=== PATIENT | female | born 1935 | race Caucasian/White ===

== ENCOUNTER → 2016-06-28 | Outpatient (CLI) | payer MEDICARE ==
[~2016-06-28] MED LIST: ACET1TAB84 PO; ALBU18002 INH; ASPCH81 PO; ASPI-461 PO; CALC600T9 PO; CLTP PO; CMD5 PO; CRS20 PO; ENOX120I SQ; FLOVENT HFA INH; FLUT110A INH; FLUT1AER5 INH; HYDR-5688 PO; LISI-461 PO; METO-157 PO; METO-649 PO; METO100T44 PO; ONDA4TAB46 PO; ONDA8TAB6 PO; OXYC-57 PO; PANT40TA PO; POLY335019 PO; PRD10 PO; RANI300T2 PO; RGL5 PO; ROSU40TA PO; SULF800T23 PO; TPRSR/100 PO; VNTHFA/IN INH; WARF1TAB6 PO; WARF2TAB PO; WARF2TAB8 PO
[2016-06-28 12:30] LABS: BLOOD UREA NITROGEN 14 mg/dl (7-18); BUN/CREATININE RATIO 14.1 (10-20); CALCIUM 8.7 mg/dl (8.5-10.1); CARBON DIOXIDE 31 mmol/L (21-32); CHLORIDE 108 mmol/L (98-107); CHOLESTEROL 158 mg/dl (0-200); CREATININE 0.96 mg/dl (0.60-1.20); GLUCOSE 95 mg/dl (70-99); POTASSIUM 4.5 mmol/L (3.5-5.1); SODIUM 144 mmol/L (136-145)
[2016-06-28 12:36] LABS: ALKALINE PHOSPHATASE 81 U/L (45-117); ALT/SGPT 33 U/L (12-78); AST/SGOT 24 U/L (15-37); CHOLESTEROL/HDL RATIO 2.2; HDL CHOLESTEROL 73 mg/dl; LDL CHOLESTEROL CALCULATED 65 mg/dl; TRIGLYCERIDES 100 mg/dl (0-150); VERY LOW DENSITY LIPOPROT CALC 20 mg/dl
[2016-06-28 13:12] LABS: HEMATOCRIT 44.2 % (37-47); MEAN CORPUSCULAR HEMOGLOBIN 29.5 pg (25-34); MEAN CORPUSCULAR HGB CONC 33.5 g/dl (32-36); MEAN PLATELET VOLUME 10.1 fL (7.4-10.4); PLATELET COUNT 225 K/uL (130-400); RED BLOOD COUNT 5.02 M/uL (4.2-5.4); WHITE BLOOD COUNT 6.05 K/uL (4.8-10.8)
[2016-06-28 13:13] LABS: BASO ABS # 0.06 K/uL (0-0.2); COMPLETE YES; EOS % 9.9 %; IG% 0.2 %; LYMPH % 27.4 %; LYMPH ABS # 1.66 K/uL (1.2-3.4); MONO % 7.8 %; NEUT % 53.7 %
== END | disposition home or self-care (01) ==
LOC: C.LAB1850 10:10
PROVIDERS: ATTEND Physician Assistant
DX: Z00.00 Encounter for general adult medical examination without abnormal findings (principal); E88.9 Metabolic disorder, unspecified; E11.9 Type 2 diabetes mellitus without complications; I25.10 Atherosclerotic heart disease of native coronary artery without angina pectoris; I65.29 Occlusion and stenosis of unspecified carotid artery

== ENCOUNTER → 2016-07-19 | Outpatient (CLI) | payer MEDICARE ==
[2016-07-19 12:16] LABS: INR 2.2 (0.9-1.1); PROTHROMBIN TIME (PATIENT) 24.2 SECONDS (9.0-12.0)
== END | disposition home or self-care (01) ==
LOC: C.LAB1850 10:28
PROVIDERS: ATTEND Internal Medicine
DX: R91.8 Other nonspecific abnormal finding of lung field (principal)

== ENCOUNTER → 2016-09-09 | Outpatient (CLI) | payer MEDICARE ==
--- NOTE | 2016-09-09 16:13 | MAMMOGRAPHY REPORT ---
BILATERAL DIGITAL SCREENING MAMMOGRAM WITH CAD: 09/09/2016 CLINICAL HISTORY: Routine screening. Patient has no complaints. TECHNIQUE: Current study was also evaluated with a Computer Aided Detection (CAD) system. Bilateral CC and MLO views were obtained. COMPARISON: Comparison is made to exams dated: 09/08/2015 mammogram, 09/05/2014 mammogram, 09/04/2013 m ammogram, 08/31/2012 mammogram, 08/31/2011 mammogram, and 08/27/2010 mammogram - [facility] er. BREAST COMPOSITION: There are scattered areas of fibroglandular density in both breasts. FINDINGS: There is a focal asymmetry in the right upper outer quadrant, for which spot compression t omosynthesis views and possible breast ultrasound are recommended for further evaluation. The remainder of both breasts are stable compared to prior exams, without suspicious masses, calcific ations, or areas of architectural distortion noted. Scattered bilateral benign-appearing calcificati ons are again noted. IMPRESSION: ACR BI-RADS CATEGORY 0: INCOMPLETE EVALUATION: NEED ADDITIONAL IMAGING EVALUATION Focal asymmetry in the right upper outer quadrant, for which additional imaging evaluation is recomme nded. The patient will be called to schedule an appointment. Approximately 10% of breast cancers are not detected with mammography. A negative mammographic report should not delay biopsy if a clinically suggestive mass is present. Janna Loo M.D. ah/:09/09/2016 15:08:45 Tooth Cutter: Vira EATON(Alejo)(Sandy), [facility] letter sent: Addl Imaging 0 BI-RADS Code: ACR BI-RADS Category 0: Incomplete Evaluation: Need Additional Imaging Evaluation
== END | disposition home or self-care (01) ==
LOC: C.MAMM 10:46
PROVIDERS: ATTEND Internal Medicine
DX: Z12.31 Encounter for screening mammogram for malignant neoplasm of breast (principal); N64.89 Other specified disorders of breast

== ENCOUNTER → 2016-09-20 | Outpatient (CLI) | payer MEDICARE ==
--- NOTE | 2016-09-20 13:17 | MAMMOGRAPHY REPORT ---
UNILATERAL RIGHT DIGITAL DIAGNOSTIC MAMMOGRAM TOMOSYNTHESIS AND TARGETED RIGHT ULTRASOUND: 09/20/2016 CLINICAL HISTORY: 80-year-old woman called back from screening mammography for a focal asymmetry in t he right upper outer quadrant. No family history of breast cancer. TECHNIQUE: Spot compression right CC and MLO 2-D digital and tomosynthesis images were obtained. COMPARISON: Comparison is made to exams dated: 09/09/2016 mammogram, 09/08/2015 mammogram, 09/05/2014 m ammogram, 09/04/2013 mammogram, 08/31/2012 mammogram, and 08/31/2011 mammogram - [facility]. BREAST COMPOSITION: The tissue of the right breast is almost entirely fatty. FINDINGS: Spot compression CC and MLO views demonstrate persistence of a focal asymmetry with irregul ar borders and associated architectural distortion in the upper outer middle one third of the right b reast measuring 20 x 9 x 11 mm. This is located 11 cm distal to the nipple. Further evaluation with ultrasound was performed. Targeted ultrasound was performed in the right upper outer quadrant. In the 9:30 axis, 9 cm from the nipple, there is a hypoechoic solid mass with indistinct borders measuring 7.6 x 6.1 x 3.7 mm. This is suspicious for malignancy and definitive characterization with ultrasound guided core biopsy is r ecommended. Additional ultrasound performed in the right axilla demonstrates a few morphologically n ormal lymph nodes within cortices. No suspicious lymphadenopathy. IMPRESSION: ACR BI-RADS CATEGORY 4C: MODERATE SUSPICION FOR MALIGNANCY, TARGETED ULTRASOUND ACR BI-R ADS CATEGORY 4C: MODERATE SUSPICION FOR MALIGNANCY 1. Ultrasound guided core biopsy is recommended for an indeterminate solid 7.6 mm mass with indistin ct borders and associated architectural distortion in the 9:30 axis of the right breast. 2. No suspicious right axillary lymphadenopathy was identified on targeted ultrasound. These results and recommendations were discussed with the patient at the time of exam. She tentative ly scheduled the biopsy prior to leaving our department. Approximately 10% of breast cancers are not detected with mammography. A negative mammographic report should not delay biopsy if a clinically suggestive mass is present. Chrissie Jackson M.D. ay/:09/20/2016 12:39:00 Developer Programmer Analyst: Minnie Marquez, [facility] letter sent: Abnormal 4/5 BI-RADS Code: ACR BI-RADS Category 4C: Moderate Suspicion For Malignancy Ultrasound BI-RADS: ACR BI- RADS Category 4C: Moderate Suspicion For Malignancy
== END | disposition home or self-care (01) ==
LOC: C.MAMM 09:48
PROVIDERS: ATTEND Internal Medicine
DX: N64.89 Other specified disorders of breast (principal); N63 Unspecified lump in breast

== ENCOUNTER → 2016-09-29 | Outpatient (CLI) | payer MEDICARE ==
[~2016-09-29] MED LIST changes: -ACET1TAB84 PO; -FLOVENT HFA INH; -FLUT1AER5 INH; -METO-157 PO; -METO-649 PO; -METO100T44 PO; +METO1TAB71 PO; -ONDA4TAB46 PO; -ONDA8TAB6 PO; -OXYC-57 PO; -SULF800T23 PO; -WARF2TAB PO
--- NOTE | 2016-09-29 15:18 | Discharge Instructions ---
Discharge Instructions Procedure Procedure Date: Sep 29, 2016. Reason for visit: Right Mass On Aspirin And Coumadin. Discharge Discharge Date: Sep 29, 2016. Discharge Diagnosis: post right breast ultrasound guided core biopsy Instructions Activity Recommendations: Additional Limitations (see below) Return to School/Work: no limitations Recommended Home Diet: No Limitations Provider Instructions: ACTIVITY RECOMMENDATIONS: * No lifting, pushing, pulling or exercising the affected side for three days. RETURN TO SCHOOL/WORK: * You may return to work/school after the procedure, but do not perform any strenuous activities for 24 to 48 hours. MEDICATIONS: * Tylenol (two 325 mg) every four to six hours if needed for mild pain (if not allergic to Tylenol). DIET: * Resume previous diet. SPECIAL CARE INSTRUCTIONS: * Keep biopsy site dry for 24 hours. May shower after 24 hours, but do not soak (bathe) incision. * May remove Tegaderm (plastic patch) tomorrow AFTER showering. * Leave the steri-strips on for one week. Allow the steri-strips to fall off by themselves. If not off after one week, you may remove them. You may place a Bandaid crosswise over the strips, if desired. * Apply ice 10 minutes on and 10 minutes off as needed. * Wear a bra at bedtime to sleep more comfortably for 2-3 days. * Your referring physician should have the results after approximately 5 to 7 business days. * Call for unusual bleeding, fever, drainage, etc or if you have any questions call [phone] during normal business hours or after hours call Dr Jackson, . FOLLOW UP VISIT: Follow-up with Referring Physician as scheduled. Allergies Coded Allergies: Nitroglycerin (Verified Allergy, Intermediate, BP Decreases, HR Increases , 11/27/11) Dee Maya Recommendations: Call your doctor if: * Temperature above 101 degrees * Pain not relieved by pain medicine ordered * There is increased drainage or redness from any incision * You have any unanswered questions or concerns. Your Doctors Instructions noted above were prepared by provider Chrissie Jackson. Patient Signature Section: Patient Instructions Signature Page Phill José Miguel Patient (or Guardian) Signature/Date: I have read and understand the instructions given to me by my caregivers. Caregiver/RN/Doctor Signature/Date: The above-named patient and/or guardian has received patient instructions on this date. + Original Patient Signature Page (only) stays with chart. Please make copy for patient.
--- NOTE | 2016-09-29 15:53 | MAMMOGRAPHY REPORT ---
UNILATERAL RIGHT DIGITAL DIAGNOSTIC MAMMOGRAM: 09/29/2016 CLINICAL HISTORY: Status post ultrasound guided core biopsy of an ill-defined hypoechoic solid mass i n the 9:30 right breast. Please refer to the report from right breast ultrasound guided core biopsy performed at the same time for full detail. IMPRESSION: POST PROCEDURE IMAGING FOR MARKER PLACEMENT Please refer to the report from right breast ultrasound guided core biopsy performed at the same time for full detail. Approximately 10% of breast cancers are not detected with mammography. A negative mammographic report should not delay biopsy if a clinically suggestive mass is present. Chrissie Jackson M.D. ay/:09/29/2016 14:37:29 Painting Supervisor: Mariella HARMON)(M), [facility] BI-RADS Code: Post Procedure Imaging For Marker Placement
--- NOTE | 2016-09-30 13:50 | MAMMOGRAPHY REPORT ---
ULTRASOUND GUIDED BIOPSY RIGHT BREAST: 09/29/2016 CLINICAL HISTORY: 80-year-old woman presents for biopsy of an ill-defined spiculated hypoechoic solid mass in the 9:30 right breast. COMPARISON: Comparison is made to exams dated: 09/20/2016 ultrasound, 09/20/2016 mammogram, 09/09/2016 mammogram, 09/08/2015 mammogram, 09/05/2014 mammogram, and 09/04/2013 mammogram - [facility]. PATIENT CONSENT: The procedure, risks and benefits were discussed with the patient and informed writt en consent was obtained. Specific risks to this procedure include: bleeding, infection, puncture of a djacent structure, pain, medication reaction, nontarget biopsy, sampling error and metal allergy. PROCEDURE DESCRIPTION: A time out was performed and the right breast was agreed as the site of biopsy . The skin was prepped and draped in the usual sterile fashion. The ill-defined hypoechoic solid mass in the 9:30 right breast was chosen as the target for biopsy. Subcutaneous and intraparenchymal 1% b uffered lidocaine, with and without epinephrine, was administered as local anesthesia. A skin incisio n was made. Through the incision, 5 samples were taken with a 14 gauge Achieve biopsy device. A meta llic marker was placed at the biopsy site. Hemostasis was achieved after manual compression. The jt ent tolerated the procedure well and there was no immediate complication. The samples were sent to t pathology department in an appropriately labeled container. Post procedure right CC and ML views were obtained. There is a new ribbon-shaped metallic biopsy mar ker within the mammographic mass in question. No significant post biopsy hematoma. IMPRESSION: ULTRASOUND GUIDED BIOPSY Status post ultrasound guided core biopsy of a suspicious mass in the 9:30 right breast, with biopsy marker placed at the site. The patient will receive notification of the biopsy results from her referring physician. Chrissie Jackson M.D. ay/:09/29/2016 15:49:05 Transformer Shop Supervisor: Mariella HARMON)(M), [facility]
== END | disposition home or self-care (01) ==
LOC: C.MAMM 14:04
PROVIDERS: ATTEND Internal Medicine
DX: C50.911 Malignant neoplasm of unspecified site of right female breast (principal)

== ENCOUNTER 2016-11-04 07:42 | Day surgery (SDC) | payer MEDICARE ==
[2016-10-19 10:07] VITALS: BMI 36.0
--- NOTE | 2016-10-19 10:50 | PAT Medication Instructions ---
Service Date Oct 19, 2016. Current Home Medication List Albuterol Sulfate (Proair Respiclick), 2 SPRAY INH Q4 PRN for SOB/Wheezing Aspirin (Aspirin Tab-Chewable *), 81 MG PO QAM Calcium/Vitamin D (Caltrate 600 Plus *), 1 TAB PO BID Fluticasone Propionate Hfa (Flovent Hfa 110MCG Inhaler), 1 PUFF INH BID Lisinopril (Zestril), 10 MG PO QAM Metoclopramide (Reglan *), 5 MG PO DAILY Metoprolol Succinate (Toprolxl (Toprol-Xl), 200 MG PO QAM Pantoprazole (Protonix), 40 MG PO QAM Ranitidine (Zantac), 150 MG PO HS Rosuvastatin Calcium (Crestor *), 40 MG PO HS Warfarin Sod (Jantoven), 2 MG PO MWF Warfarin Sod (Jantoven), 1 MG PO UD Medication Instructions For Your Scheduled Surgery - Per prescribing physician, pt to hold x 5 days prior to surgery and 'bridge' with Lovenox: Warfarin Sod (Jantoven), 2 MG PO MWF Warfarin Sod (Jantoven), 1 MG PO UD Aspirin (Aspirin Tab-Chewable *), 81 MG PO QAM - Hold the following medications the morning of surgery: Calcium/Vitamin D (Caltrate 600 Plus *), 1 TAB PO BID Lisinopril - Take the following medications the morning of surgery with a sip of water OTHERWISE NOTHING TO EAT OR DRINK AFTER MIDNIGHT: Metoclopramide (Reglan *), 5 MG PO DAILY Metoprolol Succinate (Toprolxl (Toprol-Xl), 200 MG PO QAM Pantoprazole (Protonix), 40 MG PO QAM Fluticasone Propionate Hfa (Flovent Hfa 110MCG Inhaler), 1 PUFF INH BID Albuterol Sulfate (Proair Respiclick), 2 SPRAY INH Q4 PRN for SOB/Wheezing (use if needed; BRING TO HOSPITAL) - Take the following medications as scheduled the night before surgery: Ranitidine (Zantac), 150 MG PO HS Rosuvastatin Calcium (Crestor *), 40 MG PO HS Fluticasone Propionate Hfa (Flovent Hfa 110MCG Inhaler), 1 PUFF INH BID Calcium/Vitamin D (Caltrate 600 Plus *), 1 TAB PO BID Albuterol Sulfate (Proair Respiclick), 2 SPRAY INH Q4 PRN for SOB/Wheezing If you have any questions please call us at [phone] or [phone] or [phone]
--- NOTE | 2016-10-19 11:37 | DIAGNOSTIC IMAGING REPORT ---
CHEST PREADMISSION(PA/LAT) CLINICAL HISTORY: Preoperative evaluation. COMPARISON STUDY: Chest CT February 04, 2015. FINDINGS: There are median sternotomy wires and mediastinal surgical clips. Mild left basilar opacity suggests atelectasis and epicardial fat pad. This is unchanged. Cardiomediastinal silhouette is stable. There is no evidence of pulmonary edema. There are cholecystectomy clips. The appearance of the chest is unchanged. IMPRESSION: No acute cardiopulmonary findings. No change in appearance of the chest. Electronically signed by: Guzman Plata M.D. 10/19/2016 11:36 AM Dictated Date/Time: 10/19/2016 11:35 AM
[2016-10-19 12:22] LABS: BASO % 1.1 %; BASO ABS # 0.08 K/uL (0-0.2); COMPLETE YES; EOS % 14.1 %; HEMATOCRIT 45.9 % (37-47); IG% 0.1 %; LYMPH % 22.2 %; LYMPH ABS # 1.56 K/uL (1.2-3.4); MEAN CORPUSCULAR HGB CONC 32.2 g/dl (32-36); MEAN PLATELET VOLUME 10.3 fL (7.4-10.4); MONO % 8.3 %; NEUT % 54.2 %; PLATELET COUNT 216 K/uL (130-400); WHITE BLOOD COUNT 7.03 K/uL (4.8-10.8)
[2016-10-19 12:29] LABS: INR 3.2 (0.9-1.1); PARTIAL THROMBOPLASTIN RATIO 1.5; PROTHROMBIN TIME (PATIENT) 35.6 SECONDS (9.0-12.0)
[2016-10-19 12:36] LABS: BUN/CREATININE RATIO 14.7 (10-20); CALCIUM 8.7 mg/dl (8.5-10.1); CREATININE 1.1 mg/dl (0.60-1.20)
[~2016-11-04] VITALS: Ht 152.4 cm; Wt 84.1 kg
[~2016-11-04 07:42] MED LIST changes: -ASPI-461 PO; -CALC600T9 PO; +CEFAZOLIN 2000 MG/60 ML D5W IV SCH; -CMD5 PO; -ENOX120I SQ; -HYDR-5688 PO; +LACTATED RINGER'S 1000ML 1,000 ML IV SCH; -POLY335019 PO; -PRD10 PO; -ROSU40TA PO; -TPRSR/100 PO; -VNTHFA/IN INH
[2016-11-04] MEDS ORDERED: BUPIVACAINE/EPINEPHRINE 0.5% MPF 1:200,000 10 ML VIAL ONE (08:54)
[2016-11-04] MEDS ORDERED: MEPERIDINE HCL 25 MG/ML CARP IV PRN (09:15)
[2016-11-04] MEDS ORDERED: ONDANSETRON INJ 2 MG/ML 2 ML VIAL IV PRN ×2 (09:15→14:15)
[2016-11-04] MEDS ORDERED: HYDROmorphone INJ 1 MG/ML SYR IV PRN (09:15)
[2016-11-04] MEDS ORDERED: LABETALOL HCL IV 5 MG/ML 20ML IV PRN (09:15)
[2016-11-04] MEDS ORDERED: EpHEDrine SULFATE INJ 50 MG/ML AMP IV PRN (09:15)
[2016-11-04] MEDS ORDERED: ATROPINE SULFATE 0.1 MG/ML 5ML SYR IV PRN (09:15)
[2016-11-04] MEDS ORDERED: FENTANYL CITRATE INJ 50 MCG/1 ML 2 ML VIAL IV PRN (09:15)
[2016-11-04] MEDS ORDERED: FENTANYL CITRATE INJ 50 MCG/1 ML 2 ML VIAL ONE ×2 (09:22→12:14)
[2016-11-04] MEDS ORDERED: MIDAZOLAM HCL 1 MG/ML 2ML VIAL ONE (09:22)
--- NOTE | 2016-11-04 09:25 | History & Physical Bridge Note ---
H&P Re-Evaluation Bridge Note: I have examined the patient, reviewed the History & Physical and in the interval since the performance of the History & Physical I have noted the following changes of clinical significance: No changes noted
[2016-11-04 09:31] VITALS: BP 131/73; PULSE 70; TEMP 36.7; O2SAT 98; Ht 152.4 cm; Wt 84.1 kg
--- NOTE | 2016-11-04 09:46 | DIAGNOSTIC IMAGING REPORT ---
RIGHT BREAST LYMPHOSCINTIGRAPHY CLINICAL HISTORY: Right breast cancer. COMPARISON STUDY: Diagnostic right mammogram September 29, 2016. PROCEDURE: Right breast lymphoscintigraphy was performed. The procedure, risks and benefits were discussed with the patient and informed consent was obtained. The procedure was performed by Dr. Plata following a timeout. Skin of the right breast was prepped. A total of 0.54 mCi of Lymphoseek was injected in a right periareolar distribution in 5 intradermal aliquots. The patient tolerated the procedure well and no immediate complications were evident. No imaging was requested at this time. IMPRESSION: Right breast lymphoscintigraphy, as described above. Electronically signed by: Guzman Plata M.D. 11/04/2016 9:44 AM Dictated Date/Time: 11/04/2016 9:41 AM
[2016-11-04 10:09] LABS: PARTIAL THROMBOPLASTIN RATIO 0.9; PROTHROMBIN TIME (PATIENT) 10.7 SECONDS (9.0-12.0)
[2016-11-04] MEDS ORDERED: ISOSULFAN BLUE 10 MG/ML VIAL 5 ML ONE (11:40)
[2016-11-04] MEDS ORDERED: HYDR-5688 PO (11:45)
--- NOTE | 2016-11-04 11:48 | Discharge Instructions ---
Discharge Instructions Date of Service Nov 04, 2016. Visit Reason for Visit: Right Breast Cancer W/Hosp Loc & Nm Inj To Follow Discharge Discharge Diagnosis / Problem: right sentinel lymph node biopsy, partial mastectomy Discharge Goals Goal(s): Decrease discomfort Activity Recommendations Activity Limitations: as noted below Shower/Bathe: no limitations Driving or Machine Use: resume 3 days after discharge (if not taking [place]) Anesthesia . Post Anesthesia Instructions: If you have had General Anesthesia or IV Sedation: * Do not drive today. * Resume driving when surgeon permits. * Do not make important decisions or sign legal documents today. * Call surgeon for: 1. Temperature elevations greater than 101 degrees F. 2. Uncontrollable pain. 3. Excessive bleeding. 4. Persistent nausea and vomiting. 5. Medication intolerance (nausea, vomiting or rash). * For nausea and vomiting use only clear liquids such as: tea, soda, bouillon until nausea subsides, then gradually increase diet as tolerated. * If you have any concerns or questions, call your surgeon's office. If physician is unavailable and it is an emergency, call 911 or go to the nearest emergency room. . Instructions / Follow-Up Instructions / Follow-Up Dr. Clemons as planned in 1-2 weeks, call the office for any questions [phone] Diet Recommendations Recommended Home Diet: no limitations Pending Studies Studies pending at discharge: yes List of pending studies: Pathology Medical Emergencies . Who to Call and When: Medical Emergencies: If at any time you feel your situation is an emergency, please call 911 immediately. . Non-Emergent Contact Non-Emergency issues call your: Surgeon Call Non-Emergent contact if: you have a fever, temperature is above 101.5, your pain is not controlled, wound has increased redness, you have any medication questions . . "Provider Documentation" section prepared by Wayne Tom. .
[2016-11-04] MEDS ORDERED: PROPOFOL IV EMULSION 10 MG/ML 20 ML VIAL IV ONE (11:50)
[2016-11-04] MEDS ORDERED: LIDOCAINE HCL 2% 2 ML VIAL (20MG/ML) ONE (11:50)
[2016-11-04] MEDS ORDERED: ONDANSETRON INJ 2 MG/ML 2 ML VIAL ONE (11:50)
[2016-11-04] MEDS ORDERED: DEXAMETHASONE SOD INJ 4 MG/ML VIAL ONE (11:50)
[2016-11-04] MEDS ORDERED: PHENYLEPHRINE HCL INJ 10 MG/ML VIAL ONE (11:54)
[2016-11-04] MEDS ORDERED: EpHEDrine SULFATE INJ 50 MG/ML AMP ONE (12:25)
[2016-11-04] MEDS ORDERED: ARISTA ABSORBABLE HEMOSTAT 3GM TOP ONE (13:50)
--- NOTE | 2016-11-04 14:02 | MAMMOGRAPHY REPORT ---
NEEDLE LOCALIZATION RIGHT BREAST: 11/04/2016 CLINICAL HISTORY: Right breast cancer. PROCEDURE DESCRIPTION: With ultrasound guidance, aseptic technique, and 1% lidocaine as the local ane sthetic, the mass and associated biopsy marker clip in the right 9 to 9:30 breast were localized with a 5 cm Vyas 2 needle. The path of approach was caudocranial. The needle was removed. Right CC a nd ML mammograms were obtained to confirm wire position. The biopsy marker clip and mass are located along the distal portion of the wire, centered around the hook. The patient tolerated the procedure without complication. COMPARISON: Comparison is made to exams dated: 09/29/2016 ultrasound biopsy, 09/29/2016 mammogram, 2016 ultrasound, 09/20/2016 mammogram, 09/09/2016 mammogram, and 09/08/2015 mammogram - [facility]. IMPRESSION: NEEDLE LOCALIZATION Needle localization of the mass and associated biopsy marker clip in the right 9:00 to 9:30 breast. Janna Loo M.D. ah/:11/04/2016 08:17:51 Attending Technologist: Mariella Saul RT(R)(M), [facility] Extruder Operator Helper: Janna Loo MD, [facility]
--- NOTE | 2016-11-04 14:02 | MAMMOGRAPHY REPORT ---
SPECIMEN RIGHT BREAST: 11/04/2016 CLINICAL HISTORY: Status post right breast surgical excision. COMPARISON: Comparison is made to exams dated: 11/04/2016 localization, 09/29/2016 mammogram, 09/20/2016 ultrasound, 09/20/2016 mammogram, and 09/09/2016 mammogram - [facility]. Findings: A radiograph was performed of the right breast surgical specimen. The localized mass and a ssociated biopsy marker clip are present centrally within the specimen. The intact needle localizati on wire is also present. Results were relayed to Dr. Clemons over the telephone. IMPRESSION: SPECIMEN The imaged specimen contains the preoperatively localized mass and biopsy marker clip. Janna Loo M.D. ah/:11/04/2016 13:34:58 Activity Specialist: Mariella EATON(Alejo)(M), [facility]
--- NOTE | 2016-11-04 14:04 | MAMMOGRAPHY REPORT ---
UNILATERAL RIGHT DIGITAL DIAGNOSTIC MAMMOGRAM: 11/04/2016 CLINICAL HISTORY: Status post ultrasound guided needle localization of a right 9 to 9:30 breast mass. TECHNIQUE: Right CC and ML views were obtained. COMPARISON: Comparison is made to exams dated: 09/29/2016 ultrasound biopsy, 09/29/2016 mammogram, 2016 mammogram, 09/09/2016 mammogram, 09/08/2015 mammogram, and 09/05/2014 mammogram - [facility]. BREAST COMPOSITION: The tissue of the right breast is almost entirely fatty. FINDINGS: Right CC and ML views were obtained after ultrasound-guided needle localization of the rig ht 9- 9:30 breast mass and associated biopsy marker clip. The mass and associated biopsy marker clip are located along the distal aspect of the needle localization wire, centered at the hook. IMPRESSION: Needle localization of mass and associated biopsy marker clip in the right 9 to 9:30 breast. Approximately 10% of breast cancers are not detected with mammography. A negative mammographic report should not delay biopsy if a clinically suggestive mass is present. Janna Loo M.D. ah/:11/04/2016 08:19:37 Feeder Operator: Mariella EATON(R)(M), [facility] BI-RADS Code: n/a
[2016-11-04] MEDS ORDERED: LACTATED RINGER'S 1000ML 1,000 ML IV SCH (14:05)
--- NOTE | 2016-11-04 14:06 | [facility] Operative Report ---
Operative Report Operative Date Nov 04, 2016. Pre-Operative Diagnosis Lobular breast cancer, right Post-Operative Diagnosis Same as preop; + axillary lymph nodes Procedure(s) Performed Right Breast Partial Mastectomy with Needle Localization, Right [place] Lymph Node Biopsy, right axillary dissection Surgeon Dr. Clemons Wrapper Rewinder Surgeon(s) Sampson Huntley PA-C/SIMA coles Estimated Blood Loss 40 cc Findings + axillary sentinel lymph nodes Specimens B: right axillary dissection - fresh specimen Anesthesia LMA Complication(s) None Disposition Recovery Room / PACU I attest to the content of the Intraoperative Record and any orders documented therein. Any exceptions are noted below.
[2016-11-04] MEDS ORDERED: MoRPHine SULFATE 4 MG/ML 1 ML CARP\\VIAL IV PRN (14:15)
[2016-11-04] MEDS ORDERED: HYDROCODONE/ACETAMOPHEN 5/325MG TAB PO PRN (14:15)
--- NOTE | 2016-11-04 14:44 | OPERATIVE REPORT ---
DATE OF OPERATION: 11/04/2016 PREOPERATIVE DIAGNOSIS: Right breast cancer. POSTOPERATIVE DIAGNOSIS: Same with positive sentinel lymph nodes. PROCEDURES: 1. Right breast partial mastectomy. 2. Right sentinel lymph node biopsy. 3. Subsequent completion axillary dissection. SURGEON: Dr. Emanuel Clemons. BAGMAN/WOMAN: Gabrielle Huntley PA-C and Wayne Tom PA-C ESTIMATED BLOOD LOSS: Approximately 40 mL. COMPLICATIONS: No immediate. ANESTHESIA: General with laryngeal mask airway. DESCRIPTION OF PROCEDURE: Prior to coming to the operating room, the patient had been taken to the breast center, where an image-guided needle placement was performed without incident. She subsequently then went to radiology, where she was injected with technetium-99. She was then brought to the operating room and placed in the supine position. After successful placement of laryngeal mask airway, the right breast and axilla were sterilely prepped and draped in the usual fashion. Initially, I was having a lot of trouble with the Neoprobe, finding the axillary lymph node. I therefore injected about 3-4 mL of isosulfan blue into the upper outer area of the nipple areolar complex near one of her technetium injection sites. We massaged this into the breast tissue and waited for about 5-10 minutes before initiating the procedure. As time went on, we were getting some signal with the Neoprobe. We made a small axillary incision with a 15 blade scalpel and carried this down through the soft tissue using electrocautery. We did find the blue dye in the lymphatics and we were able to follow these to a blue lymph node. There were actually 2 lymph nodes side by side, both had took up the blue dye. We were able to use cautery and tied it off the pedicles with 3-0 Vicryl. When we removed these from the axilla, we were able to get some positive counts on the Neoprobe. These were sent as sentinel lymph nodes #1 and #2. When we reinserted the Neoprobe into the incision, there was no further activity noted. Our attention then turned to the partial mastectomy. I should note that later in the case, pathology would call into the room indicating that both sentinel lymph nodes were essentially completely replaced with lobular carcinoma. We made a new incision in the upper outer quadrant of the breast. We used electrocautery to make skin flaps in 360 degrees. I then cut the guidewire and delivered it through the skin into the incision. We continued to use traction, counter traction and electrocautery to carry down through normal breast tissue in 360 degrees, headed towards the hook in the guidewire. We did take this essentially whole way down to fascia and removed in 1 piece the upper outer quadrant of the right breast. I did rosalio it with 2 short sutures to indicate the superior aspect and one long suture to indicate the lateral aspect. We did x-ray it in the room and we did in fact have the entire guidewire with hook as well as a marker clip. Any small bleeding points were controlled using electrocautery. I used Augusto powder and closed the wound with 0 Vicryl for deep layers, 2-0 Vicryl for mid layers and 4-0 Monocryl for the skin. As previously stated, pathology did call into the room indicating positive lymph nodes. We therefore extended the axillary incision superiorly and inferiorly and performed a completion axillary node dissection. I continued down on to the chest wall and continued posteriorly to the latissimus dorsi muscle. I continued superiorly to the axillary vein using primarily blunt dissection. I did tie off a small vessel with 3-0 Vicryl, continued to use small amounts of electrocautery and blunt dissection to continue to deliver all of the deep axillary fat pad with subsequent lymph nodes. Once we had this entire fat pad out in 1 piece, we sent it for permanent sectioning. The patient was not under paralysis and I did not run into any nerve tissue during the dissection. We then thoroughly irrigated the axillary wound. I placed Augusto into this wound also to help prevent seroma and hematoma formation and closed it in multiple layers again using 0 Vicryl for deep layers, 2-0 Vicryl for mid layers and 4-0 Monocryl for skin. We did use Marcaine around the incisions for postoperative analgesia. Benzoin and Steri-Strips were placed as well as some gauze and a Surgi-Bra. The patient was then awakened, extubated, and transferred to recovery room in stable condition. I attest to the content of the Intraoperative Record and any orders documented therein. Any exception s are noted below.
--- NOTE | 2016-11-04 14:52 | Anesthesiology Progress Note ---
Anesthesia Post Op Note Date & Time Nov 04, 2016 at 14:52 Vital Signs Pain Intensity: 0 Vital Signs Past 12 Hours Date Time Temp Pulse Resp B/P (MAP) Pulse Ox O2 Delivery O2 Flow Rate FiO2 11/04/16 14:46 36.5 75 20 124/69 95 Room Air 11/04/16 14:43 69 15 11/04/16 14:43 71 15 98 11/04/16 14:42 139/68 11/04/16 14:38 72 22 11/04/16 14:38 73 22 97 11/04/16 14:36 128/63 11/04/16 14:33 73 15 97 11/04/16 14:33 71 15 11/04/16 14:31 142/72 11/04/16 14:28 71 14 11/04/16 14:28 72 14 98 11/04/16 14:27 74 15 11/04/16 14:27 74 15 11/04/16 14:27 74 15 96 11/04/16 14:27 74 15 96 11/04/16 14:26 125/74 11/04/16 14:26 125/74 11/04/16 14:22 75 22 147/101 98 11/04/16 14:22 70 22 11/04/16 14:22 70 22 11/04/16 14:22 75 22 147/101 98 11/04/16 14:17 73 16 11/04/16 14:17 73 16 11/04/16 14:17 73 16 125/68 99 11/04/16 14:17 73 16 125/68 99 11/04/16 14:12 72 22 11/04/16 14:12 72 22 11/04/16 14:12 74 22 98 11/04/16 14:12 74 22 98 11/04/16 14:11 128/62 11/04/16 14:11 128/62 11/04/16 14:07 70 16 11/04/16 14:07 36.1 71 18 129/64 98 Mask 10 11/04/16 14:07 70 16 11/04/16 14:07 70 16 129/64 98 11/04/16 14:07 70 16 129/64 98 11/04/16 09:31 36.7 70 18 131/73 (92) 98 Room Air Notes Mental Status: alert / awake / arousable, participated in evaluation Pt Amnestic to Procedure: Yes Nausea / Vomiting: adequately controlled Pain: adequately controlled Airway Patency, RR, SpO2: stable & adequate BP & HR: stable & adequate Hydration State: stable & adequate Anesthetic Complications: no major complications apparent
[2016-11-04 15:00] VITALS: BP 144/78; PULSE 77; TEMP 36.5; O2SAT 95
[2016-11-04 15:30] VITALS: BP 130/60; PULSE 77; TEMP 36.5; O2SAT 95
[2016-12-27] MEDS ORDERED: ASPI-461 PO (08:33)
[2016-12-27] MEDS ORDERED: ROSU40TA PO (08:33)
[2016-12-27] MEDS ORDERED: CALC600T9 PO (08:33)
[2016-12-27] MEDS ORDERED: ENOX120I SQ (08:33)
[2016-12-27] MEDS ORDERED: VNTHFA/IN INH (08:33)
== END 2016-11-04 16:00 | disposition home or self-care (01) ==
LOC: C.ACU 07:42
PROVIDERS: ATTEND Surgery
DX: C50.911 Malignant neoplasm of unspecified site of right female breast (principal); N63 Unspecified lump in breast; C77.3 Secondary and unspecified malignant neoplasm of axilla and upper limb lymph nodes; E11.9 Type 2 diabetes mellitus without complications; Z79.01 Long term (current) use of anticoagulants

== ENCOUNTER → 2016-12-06 | Outpatient (CLI) | payer MEDICARE ==
[~2016-12-06] MED LIST changes: +ASPI-461 PO; +CALC600T9 PO; -CEFAZOLIN 2000 MG/60 ML D5W IV SCH; +ENOX120I SQ; +HYDR-5688 PO; -LACTATED RINGER'S 1000ML 1,000 ML IV SCH; +POLY335019 PO; +PRD10 PO; +ROSU40TA PO; +TPRSR/100 PO; +VNTHFA/IN INH
--- NOTE | 2016-12-06 13:15 | DIAGNOSTIC IMAGING REPORT ---
PET/CT CLINICAL HISTORY: 81-year-old female with history of breast cancer, metastatic, status post right breast partial mastectomy, invasive lobular carcinoma. TECHNIQUE: PET/CT was performed from the base of the skull through the pelvis following the intravenous administration of 10.67 mCi of F18-FDG. Non-contrast CT imaging was performed over the same range without breath-hold for attenuation correction of PET images and anatomic correlation, but not for primary interpretation as it is not of standard diagnostic quality. CT DOSE: 1156.30 mGy.cm. COMPARISON: None. FINDINGS: HEAD AND NECK: There is no FDG-avid disease or significant lymphadenopathy in the imaged portions of the head and the neck. CHEST: Postsurgical changes of the right breast with an incision noted in the upper outer quadrant. Associated mild FDG avidity along the incision site. Large subjacent photopenic fluid collection in the operative bed measures 12.4 x 7.5 cm in maximal axial dimensions with a density most consistent with seroma. Peripheral mild FDG avidity (max a should be 2.2) is noted surrounding the collection most pronounced along the superficial and superior margin. No convincing evidence of nodular soft tissue at the margins within limitations of noncontrast technique. Skin thickening along the right breast also noted, possibly post radiation or post surgical change. FDG avid right axillary lymph node noted immediately lateral to the pectoralis minor measuring 1.5 x 1.5 cm with a max SUV of 3.3 (see series 2 image 62). Few additional smaller lymph nodes noted both posterior and medial to the pectoralis minor. No gross evidence of lymphadenopathy in the internal mammary region. No enlarged or FDG avid mediastinal or hilar lymphadenopathy. Top normal heart size. Coronary artery and aortic valve calcification. No pericardial or pleural effusion. Respiratory motion degrades evaluation of the lungs. Allowing for this limitation, 3 mm solid pulmonary nodule noted in the right upper lobe (series 2 image 76). This is likely below the level of resolution for PET. No additional focal infiltrate. Median sternotomy noted. ABDOMEN/PELVIS: Below the diaphragm, tracer is distributed physiologically in the gastrointestinal and genitourinary tracts. There is no significant lymphadenopathy and no FDG-avid disease. Gallbladder surgically absent. Limited diverticulosis of the sigmoid colon. Atherosclerosis of the normal caliber abdominal aorta. MUSCULOSKELETAL: Degenerative changes of the spine. No FDG avid or destructive osseous lesion. IMPRESSION: 1. Postsurgical changes of the right breast with large fluid collection most consistent with seroma. Peripheral FDG avidity is likely expected postsurgical change. 2. FDG avid right axillary lymph node lateral to the pectoralis minor is highly suspicious for metastatic disease. No other evidence of lymphadenopathy or metastatic disease in the remaining body. Electronically signed by: Justin Lantigua M.D. 12/06/2016 1:14 PM Dictated Date/Time: 12/06/2016 12:54 PM
== END | disposition home or self-care (01) ==
LOC: C.PET 09:36
PROVIDERS: ATTEND Surgery
DX: C50.919 Malignant neoplasm of unspecified site of unspecified female breast (principal)

== ENCOUNTER → 2016-12-28 | Outpatient (CLI) | payer MEDICARE ==
[~2016-12-28] MED LIST changes: -ASPCH81 PO; -CLTP PO; -CRS20 PO; -FLUT110A INH; -HYDR-5688 PO; -RGL5 PO; -TPRSR/100 PO; -WARF1TAB6 PO
[2016-12-28 13:35] LABS: BASO % 1.6 %; BASO ABS # 0.09 K/uL (0-0.2); COMPLETE YES; EOS % 16.7 %; HEMATOCRIT 44.6 % (37-47); IG% 0.2 %; LYMPH % 26.2 %; LYMPH ABS # 1.44 K/uL (1.2-3.4); MEAN CELL VOLUME 89.7 fL (80-100); MEAN CORPUSCULAR HEMOGLOBIN 28.4 pg (25-34); MEAN CORPUSCULAR HGB CONC 31.6 g/dl (32-36); MEAN PLATELET VOLUME 10.5 fL (7.4-10.4); MONO % 9.5 %; NEUT % 45.8 %; PLATELET COUNT 228 K/uL (130-400); RED BLOOD COUNT 4.97 M/uL (4.2-5.4)
[2016-12-28 13:59] LABS: BLOOD UREA NITROGEN 10 mg/dl (7-18); BUN/CREATININE RATIO 11.1 (10-20); CALCIUM 9.1 mg/dl (8.5-10.1); CARBON DIOXIDE 26 mmol/L (21-32); CHLORIDE 109 mmol/L (98-107); CHOLESTEROL 154 mg/dl (0-200); CREATININE 0.91 mg/dl (0.60-1.20); GLUCOSE 105 mg/dl (70-99); POTASSIUM 4.1 mmol/L (3.5-5.1); SODIUM 142 mmol/L (136-145); TRIGLYCERIDES 147 mg/dl (0-150); VERY LOW DENSITY LIPOPROT CALC 29 mg/dl
[2016-12-28 14:00] LABS: CHOLESTEROL/HDL RATIO 2.4; HDL CHOLESTEROL 65 mg/dl; LDL CHOLESTEROL CALCULATED 60 mg/dl
[2016-12-28 14:13] LABS: RATIO 9.7 mcg/mg (0-30.0)
== END | disposition home or self-care (01) ==
LOC: C.LABBC 09:54
PROVIDERS: ATTEND Internal Medicine
DX: E11.9 Type 2 diabetes mellitus without complications (principal); I25.10 Atherosclerotic heart disease of native coronary artery without angina pectoris; K31.84 Gastroparesis

== ENCOUNTER 2016-12-30 08:03 | Day surgery (SDC) | payer MEDICARE ==
[2016-12-27 08:57] VITALS: Ht 152.4 cm; Wt 84.1 kg
[~2016-12-30] VITALS: Ht 152.4 cm; Wt 84.1 kg
[~2016-12-30 08:03] MED LIST changes: +CEFAZOLIN 2000 MG/60 ML D5W IV SCH; +LACTATED RINGER'S 1000ML 1,000 ML IV SCH; -POLY335019 PO; -PRD10 PO
[2016-12-30] MEDS ORDERED: ONDANSETRON INJ 2 MG/ML 2 ML VIAL IV PRN ×2 (08:30→10:45)
[2016-12-30] MEDS ORDERED: FLUMAZENIL 0.1 MG/1 ML 10 ML VIAL IV PRN (08:30)
[2016-12-30] MEDS ORDERED: EpHEDrine SULFATE INJ 50 MG/ML AMP IV PRN (08:30)
[2016-12-30] MEDS ORDERED: FENTANYL CITRATE INJ 50 MCG/1 ML 2 ML VIAL IV PRN (08:30)
[2016-12-30] MEDS ORDERED: HYDROmorphone INJ 2 MG/ML SYR/VIAL IV PRN (08:30)
[2016-12-30] MEDS ORDERED: PHENYLEPHRINE 100MCG/ML 5ML SYR IV PRN (08:30)
[2016-12-30] MEDS ORDERED: ATROPINE SULFATE 0.1 MG/ML 5ML SYR IV PRN (08:30)
[2016-12-30] MEDS ORDERED: NALOXONE HCL 0.4 MG/1 ML VIAL/CARP IV PRN (08:30)
[2016-12-30] MEDS ORDERED: LABETALOL HCL IV 5 MG/ML 20ML IV PRN (08:30)
[2016-12-30] MEDS ORDERED: MEPERIDINE HCL 25 MG/ML CARP IV PRN (08:30)
[2016-12-30] MEDS ORDERED: MIDAZOLAM HCL 1 MG/ML 2ML VIAL ONE (08:40)
[2016-12-30] MEDS ORDERED: FENTANYL CITRATE INJ 50 MCG/1 ML 2 ML VIAL ONE (08:40)
[2016-12-30] MEDS ORDERED: PROPOFOL IV EMULSION 10 MG/ML 20 ML VIAL IV ONE (08:40)
[2016-12-30] MEDS ORDERED: LIDOCAINE HCL 2% 2 ML VIAL (20MG/ML) ONE (08:40)
[2016-12-30 08:48] VITALS: BP 141/61; PULSE 70; TEMP 36.6; O2SAT 98
[2016-12-30 08:59] LABS: PROTHROMBIN TIME (PATIENT) 10.2 SECONDS (9.0-12.0)
[2016-12-30] MEDS ORDERED: HEPARIN SOD (PORCINE) 1000 UNIT/ML 10 ML VIAL ONE (09:39)
[2016-12-30] MEDS ORDERED: BUPIVACAINE/EPINEPHRINE 0.5% MPF 1:200,000 30 ML VIAL ONE (09:39)
[2016-12-30] MEDS ORDERED: SODIUM CHLORIDE 0.9% 1000ML 1,000 ML IV SCH (10:41)
[2016-12-30] MEDS ORDERED: HYDROCODONE/ACETAMOPHEN 5/325MG TAB PO PRN ×2 (10:45)
[2016-12-30] MEDS ORDERED: IBUPROFEN 600 MG TAB PO PRN (10:45)
--- NOTE | 2016-12-30 10:48 | [facility] Operative Report ---
Operative Report Operative Date Dec 30, 2016. Pre-Operative Diagnosis Lobular Breast Cancer, Right; need for IV access Post-Operative Diagnosis Lobular Breast Cancer, Right; need for IV access Procedure(s) Performed Infusaport Insertion Left Subclavian using Fluoroscopy Surgeon Dr. Clemons Quantitative Consultant Surgeon(s) None Estimated Blood Loss 10ml Findings normal anatomy Specimens None per surgeon Anesthesia MAC Complication(s) None Disposition Recovery Room / PACU Description of Procedure After informed consent was obtained the patient was taken to the operating room and placed in supine position with the left arm tucked. A rolled towel was placed between her shoulder blades and she was placed in a slight Trendelenburg position. IV sedation was administered and titrated to effect. After adequate sedation the left upper chest wall was sterilely prepped and draped in usual fashion. I Began with a horizontal incision below the angle of the clavicle with a 15 blade scalpel and carried this down through the soft tissue using electrocautery. We used blunt finger penetration to create a small housing pocket right on top of the pectoralis fascia. prior to doing this I did use Marcaine to create a field block as well as to localize the periosteum of the left clavicle. I then used an 18-gauge finder needle access left subclavian vein with a single stick. A guidewire was advanced under fluoroscopy into the superior vena cava. We then measured the catheter the appropriate size and connected it to the port itself. I then advanced a vascular dilator with a peel -away sheath over the guidewire again under fluoroscopy. Next we removed the guidewire and needle and advanced the catheter of the port through the peel- away sheath. We then peeled the sheath away leaving the catheter in place. We secured the port itself to the pectoralis fascia using 0 Ethibond with 3 point fixation. I verified catheter position with fluoroscopy. The system was flushed prior to placement. I also accessed it with a Sellers needle and was able to withdrawal dark venous blood without difficulty and flushed with heparin solution. The wound was irrigated and closed in 2 layers with 3-0 Vicryl for deep layers and 3-0 Monocryl for the skin. Glue was used as a dressing. The patient was awaken and transferred recovery in stable condition. Postoperative portable chest x-ray is currently pending to verify catheter position and rule out pneumothorax I attest to the content of the Intraoperative Record and any orders documented therein. Any exceptions are noted below.
--- NOTE | 2016-12-30 10:51 | Discharge Instructions ---
Discharge Instructions Date of Service Dec 30, 2016. Admission Reason for Admission: Right Breast Cancer, Diabetes Discharge Discharge Diagnosis / Problem: breast cancer Discharge Goals Goal(s): Therapeutic intervention Activity Recommendations Activity Limitations: as noted below Lifting Limitations: no more than 10 pounds Exercise/Sports Limitations: until after follow-up appointment May Resume Sexual Activity: after follow-up appointment Shower/Bathe: no limitations . Instructions / Follow-Up Instructions / Follow-Up follow up with Dr. Clemons as scheduled. resume coumadin and lovenox on 12/31. Call you pcp for instructions regarding obtaining an INR level and stopping lovenox. Current Hospital Diet Patient's current hospital diet: Discharge Diet Recommended Diet: Regular Diet Procedures Procedures Performed: Infusaport Insertion Left Subclavian using Fluoroscopy Pending Studies Studies pending at discharge: no Laboratory Results Hemoglobin A1c Test 12/28/16 10:00 Range/Units Estimated Average Glucose 120 mg/dl Hemoglobin A1c 5.8 H 4.5-5.6 % Lipid Panel Test 12/28/16 10:00 Range/Units Triglycerides Level 147 0-150 mg/dl Cholesterol Level 154 0-200 mg/dl HDL Cholesterol 65 mg/dl Cholesterol/HDL Ratio 2.4 LDL Cholesterol, Calculated 60 mg/dl Medical Emergencies . Who to Call and When: Medical Emergencies: If at any time you feel your situation is an emergency, please call 911 immediately. . Non-Emergent Contact Non-Emergency issues call your: Primary Care Provider, Surgeon Call Non-Emergent contact if: temperature is above 101, wound has increased drainage, wound has increased redness, wound has increased pain . "Provider Documentation" section prepared by Emanuel Clemons. . VTE Core Measure Inpt VTE Proph given/why not?: Enoxaparin (Lovenox)SQ, SCD's
--- NOTE | 2016-12-30 11:06 | Anesthesiology Progress Note ---
Anesthesia Post Op Note Date & Time Dec 30, 2016 at 11:05 Vital Signs Pain Intensity: 0 Vital Signs Past 12 Hours Date Time Temp Pulse Resp B/P (MAP) Pulse Ox O2 Delivery O2 Flow Rate FiO2 12/30/16 11:00 36 75 16 120/70 93 Room Air 12/30/16 10:50 78 16 103/59 94 Room Air 12/30/16 10:40 74 16 112/67 99 Oxymask 8 12/30/16 10:34 36 73 16 94/51 94 Oxymask 8 12/30/16 08:48 36.6 70 18 141/61 (87) 98 Room Air Notes Mental Status: alert / awake / arousable, participated in evaluation Pt Amnestic to Procedure: Yes Nausea / Vomiting: adequately controlled Pain: adequately controlled Airway Patency, RR, SpO2: stable & adequate BP & HR: stable & adequate Hydration State: stable & adequate Anesthetic Complications: no major complications apparent
--- NOTE | 2016-12-30 11:19 | DIAGNOSTIC IMAGING REPORT ---
CHEST ONE VIEW PORTABLE CLINICAL HISTORY: 81 years-old Female presenting with breast cancer. TECHNIQUE: Portable upright AP view of the chest was obtained. COMPARISON: 10/19/2016. FINDINGS: Left subclavian Mediport terminates in the lower SVC. Median sternotomy wires and mediastinal surgical clips unchanged. Atherosclerosis of aortic arch. Cardiac silhouette top normal in size, unchanged. Bandlike opacity at the left lung base, unchanged. No new focal infiltrate. Mild pulmonary vascular prominence. No large effusion or pneumothorax. Degenerative changes of the thoracic spine. Upper abdomen normal. IMPRESSION: 1. Mild pulmonary vascular prominence could suggest volume overload. No malik pulmonary edema. Persistent left basilar atelectasis or scarring. 2. The sensitivity of radiography is limited for metastatic disease. If there is clinical concern for intrathoracic metastatic disease, chest CT should be obtained. Electronically signed by: Justin Lantigua M.D. 12/30/2016 11:17 AM Dictated Date/Time: 12/30/2016 11:16 AM
[2016-12-30 11:26] VITALS: BP 103/54; PULSE 42; TEMP 36.3; O2SAT 96
[2016-12-30 11:56] VITALS: BP 125/53; PULSE 52; TEMP 36.3; O2SAT 99
== END 2016-12-30 12:08 | disposition home or self-care (01) ==
LOC: C.ACU 08:03
PROVIDERS: ATTEND Surgery
DX: C50.911 Malignant neoplasm of unspecified site of right female breast (principal); E11.9 Type 2 diabetes mellitus without complications; I25.10 Atherosclerotic heart disease of native coronary artery without angina pectoris; J44.9 Chronic obstructive pulmonary disease, unspecified; K21.9 Gastro-esophageal reflux disease without esophagitis; I10 Essential (primary) hypertension; E78.01 Familial hypercholesterolemia; I65.29 Occlusion and stenosis of unspecified carotid artery; Z86.711 Personal history of pulmonary embolism; Z79.01 Long term (current) use of anticoagulants; Z79.82 Long term (current) use of aspirin; Z90.11 Acquired absence of right breast and nipple; Z90.49 Acquired absence of other specified parts of digestive tract; Z80.2 Family history of malignant neoplasm of other respiratory and intrathoracic organs

== ENCOUNTER → 2016-12-31 | Outpatient (CLI) | payer MEDICARE ==
[~2016-12-31] MED LIST changes: -CEFAZOLIN 2000 MG/60 ML D5W IV SCH; -LACTATED RINGER'S 1000ML 1,000 ML IV SCH; +POLY335019 PO; +PRD10 PO; +TPRSR/100 PO
--- NOTE | 2016-12-31 16:09 | DIAGNOSTIC IMAGING REPORT ---
(CHEST) THORAX WITHOUT CT DOSE: 562.59 mGy.cm HISTORY: BREAST CA, CHEMO INFILTRATE TECHNIQUE: Multiaxial CT images of the chest were performed without contrast. A dose lowering technique was utilized adhering to the principles of ALARA. COMPARISON: Chest 12/30/2016. Chest CT 02/04/2015. FINDINGS: Left subclavian Port-A-Cath terminates in the SVC. The visualized tubing appears intact. There is small amount of gas anterior and superior to the port. There is also fluid tracking within the subcutaneous fat of the left anterior chest/breast. This also subcutaneous edema within the left breast/upper chest. No loculated fluid collections within the left breast. There is a 13 x 9 cm fluid collection within the right lateral breast/axilla. Single mildly enlarged lymph node within the right axilla which is increased in size. This measures 14 x 11 mm. No left axillary lymphadenopathy. Stable 1 cm nodule anterior to the liver. The long-term stability favors a benign nodule. The unenhanced liver, spleen, and adrenal glands are unremarkable. Stable prominent gastrohepatic lymph node which measures 1 cm. No mediastinal or hilar lymphadenopathy. The heart is normal in size. No pleural or pericardial effusions. No pneumothorax. Patchy groundglass densities within the lung bases. Multiple bilateral pulmonary nodules have increased in number compared to the prior study. Some these demonstrate a groundglass halo. There are greater than 30 pulmonary nodules most pronounced within the lung bases. Dominant nodule within the right lower lobe measures 1 cm. IMPRESSION: 1. Small amount of gas adjacent to the left chest wall port with fluid tracking within the subcutaneous fat of the left anterior chest/breast. There is also subcutaneous edema/fluid within the left upper chest/breast. No loculated fluid collections within the left breast. 2. A 13 x 9 cm loculated fluid collection within the right lateral breast/axilla. This favors a postoperative seroma but is nonspecific. 3. Increase in number of the multiple bilateral pulmonary nodules. Some of these demonstrate a groundglass halo and are irregular in appearance. These are nonspecific but may be due to inflammatory/infectious change. Metastatic disease cannot be excluded. Therefore, continued follow is recommended. There are also patchy groundglass densities within the lung bases which likely represents mild inflammatory/infectious change. 4. Increase in size in a single mildly enlarged right axillary lymph node. Electronically signed by: Jai Blair M.D. 12/31/2016 4:08 PM Dictated Date/Time: 12/31/2016 3:50 PM
== END | disposition home or self-care (01) ==
LOC: C.CTS 15:09
PROVIDERS: ATTEND Internal Medicine Hematology & Oncology
DX: C50.011 Malignant neoplasm of nipple and areola, right female breast (principal)

== ENCOUNTER 2017-01-01 11:03 | Day surgery (SDC) | payer MEDICARE ==
[~2017-01-01] VITALS: Ht 152.4 cm; Wt 86.4 kg
[~2017-01-01 11:03] MED LIST changes: -POLY335019 PO; -PRD10 PO; -TPRSR/100 PO
[2017-01-01 11:15] VITALS: BP 113/76; PULSE 62; TEMP 36.5; O2SAT 97; Ht 152.4 cm; Wt 86.4 kg
[2017-01-01] MEDS ORDERED: [UNRECOGNIZED DRUG - OTHER] IV SCH (13:00)
[2017-01-01] MEDS ORDERED: LACTATED RINGER S IV SCH (13:00)
[2017-01-01 14:30] VITALS: BP 138/77; PULSE 55; TEMP 36.3; O2SAT 98
[2017-01-02] MEDS ORDERED: [UNRECOGNIZED DRUG - OTHER] IV SCH (13:00)
[2017-01-02] MEDS ORDERED: LACTATED RINGER S IV SCH (13:00)
== END 2017-01-01 14:45 | disposition home or self-care (01) ==
LOC: C.OPB 11:03 → C.4E 11:11 → C.OPB 14:45
PROVIDERS: ATTEND Internal Medicine Hematology & Oncology
DX: C50.011 Malignant neoplasm of nipple and areola, right female breast (principal)

== ENCOUNTER 2017-01-02 10:50 | Day surgery (SDC) | payer MEDICARE ==
[~2017-01-02] VITALS: Ht 152.4 cm; Wt 88.0 kg
[2017-01-02 11:00] VITALS: BP 102/67; PULSE 71; TEMP 36.6; O2SAT 96; Ht 152.4 cm; Wt 88.0 kg
[2017-01-02] MEDS ORDERED: LACTATED RINGER S IV SCH (13:00)
[2017-01-02] MEDS ORDERED: [UNRECOGNIZED DRUG - OTHER] IV SCH (13:00)
[2017-01-02 15:40] VITALS: BP 99/58; PULSE 67; TEMP 36.9; O2SAT 95
[2017-01-03] MEDS ORDERED: POLY335019 PO (12:57)
[2017-01-03] MEDS ORDERED: PRD10 PO (12:57)
== END 2017-01-02 15:45 | disposition home or self-care (01) ==
LOC: C.OPB 10:50 → C.4E 10:55 → C.OPB 15:45
PROVIDERS: ATTEND Internal Medicine Hematology & Oncology
DX: R55 Syncope and collapse (principal); Z85.3 Personal history of malignant neoplasm of breast; J45.909 Unspecified asthma, uncomplicated; I10 Essential (primary) hypertension; I25.2 Old myocardial infarction; Z86.711 Personal history of pulmonary embolism; Z95.818 Presence of other cardiac implants and grafts; Z82.49 Family history of ischemic heart disease and other diseases of the circulatory system; Z87.891 Personal history of nicotine dependence; Z79.82 Long term (current) use of aspirin; K21.9 Gastro-esophageal reflux disease without esophagitis

== ENCOUNTER 2017-01-02 15:58 | Observation (INO) | payer MEDICARE ==
[~2017-01-02] VITALS: Ht 152.4 cm; Wt 88.8 kg
[2017-01-02] MEDS ORDERED: SODIUM CHLORIDE 0.9% 500ML 500 ML IV STA (18:03)
--- NOTE | 2017-01-02 18:05 | DIAGNOSTIC IMAGING REPORT ---
CHEST ONE VIEW PORTABLE CLINICAL HISTORY: 81 years-old Female presenting with eval for pna, multiple nodules seen on CT. TECHNIQUE: Portable upright AP view of the chest was obtained. COMPARISON: 12/30/[address] from 12/31/2016. FINDINGS: Median sternotomy wires intact. Left subclavian Mediport terminates in the mid SVC. Atherosclerosis of the aortic arch. Cardiac silhouette remains enlarged. Nodular opacities seen on CT are not well appreciated on radiograph. Eventration of the left hemidiaphragm noted. No large effusion or pneumothorax. Degenerative changes of the thoracic spine. Upper abdomen normal. IMPRESSION: 1. Nodular opacities seen on recent chest CT are not well appreciated on radiograph. Electronically signed by: Justin Lantigua M.D. 01/02/2017 6:04 PM Dictated Date/Time: 01/02/2017 6:00 PM
[2017-01-02 18:08] LABS: ALT/SGPT 19 U/L (12-78); AST/SGOT 37 U/L (15-37); BLOOD UREA NITROGEN 23 mg/dl (7-18); CALCIUM 7.9 mg/dl (8.5-10.1); CARBON DIOXIDE 24 mmol/L (21-32); CHLORIDE 105 mmol/L (98-107); CREATININE 0.95 mg/dl (0.60-1.20); GLUCOSE 79 mg/dl (70-99); POTASSIUM 4.4 mmol/L (3.5-5.1); SODIUM 137 mmol/L (136-145)
[2017-01-02 18:10] LABS: ALKALINE PHOSPHATASE 61 U/L (45-117)
[2017-01-02 18:40] LABS: HEMATOCRIT 46.2 % (37-47); MEAN CELL VOLUME 87.7 fL (80-100); MEAN CORPUSCULAR HEMOGLOBIN 29.6 pg (25-34); MEAN CORPUSCULAR HGB CONC 33.8 g/dl (32-36); RED BLOOD COUNT 5.27 M/uL (4.2-5.4); WHITE BLOOD COUNT 6.95 K/uL (4.8-10.8)
[2017-01-02 18:42] LABS: BASO % 0.3 %; BASO ABS # 0.02 K/uL (0-0.2); COMPLETE YES; EOS % 1.4 %; IG% 0.4 %; LYMPH % 12.2 %; LYMPH ABS # 0.85 K/uL (1.2-3.4); MONO % 3.3 %; NEUT % 82.4 %
[2017-01-02 18:58] LABS: INR 1.1 (0.9-1.1); PARTIAL THROMBOPLASTIN RATIO 1.1; PROTHROMBIN TIME (PATIENT) 12.1 SECONDS (9.0-12.0)
[2017-01-02] MEDS ORDERED: ACETAMINOPHEN 325 MG TAB PO PRN (19:15)
[2017-01-02] MEDS ORDERED: MAGNESIUM HYDROXIDE SUSP 30 ML UDC PO PRN (19:15)
[2017-01-02] MEDS ORDERED: ALBUTEROL SULFATE INH PRN (19:15)
[2017-01-02] MEDS ORDERED: ALBUTEROL HFA 8 GM INHALER INH PRN (19:15)
[2017-01-02] MEDS ORDERED: ENOXAPARIN 1.5 MG/KG SQ ONE (19:32)
--- NOTE | 2017-01-02 19:40 | History and Physical ---
History & Physical Date & Time of Service: Jan 02, 2017 at 19:12 Chief Complaint: Infusion For Breast Cancer, Almost Passed Out Primary Care Physician: Lucian Noe M.D. History of Present Illness Source: patient 81 y/o F who was sent to the ED from the 4th floor where she was receiving an outpt dosing of antidote for a chemo extravasation rxn. Pt informed nursing that she had an episode of near syncope earlier this AM. She got up to go to the bathroom this morning and became extremely hot and diaphoretic. She felt that she needed to go back to bed but when she turned to do so she became suddenly lightheaded and fell. She denies losing consciousness or hitting her head. No injury from the fall other than minor knee pain. Pt then called her daughter who got to her home in 15 minutes. She felt fine just prior to this event. She has chest pain related to the extravasation rxn but no new pain. She and family state that the redness in her chest is much worse than it was earlier today. Pt has never had any sort of pre-syncope or full syncope in the past. At present, pt feels fine other than burning related to the extravasation rxn. Pt states that she has been undergoing chemotherapy tx with doxyrubicin when the needle slipped out of her port causing the drug to infiltrate into the skin of her L chest and breast on 12/31. She was given an antidote for this on 12/31 and then has come to the 4th floor yesterday and today for antidote doses 2 and 3, which will complete the recommended course. Dr. Baptiste was contacted by the ED physician and informed that pt's rash is much worse that it was earlier today. He states that this is not an unusual response per his research and that she should not be given abx. Daughter states that she is very concerned that no one from hem/onc has come to the ED to check on the pt given the worsening skin findings. She is very upset that this extravasation rxn happened in the first place. Pt denies fever, SOB, abd pain, n/v/c/d, LE pain or swelling. She states that all she has had to eat today was a banana before her antidote tx. She does get mild nausea at times, but has none at present. Pt states she was on lovenox for her PE and is transitioning to coumadin. She took 4mg yesterday and is to take 4mg again tonight and have labs checked tomorrow. Past Medical/Surgical History Medical Problems: (1) Anticoagulants,Lt,Current Use Status: Chronic (2) Asthma, Unspecified, W (Acute) Exacerbation Status: Chronic (3) Hypertension Nos Status: Chronic (4) Old Myocardial Infarct Status: Resolved (5) Oth Pulmon Embolism/Infarct Status: Resolved Breast ca as noted above Extravasation rxn as noted above Hx of [place] in 1994 s/p stent x1 Family History Patient reports no known family medical history. Both parents at advanced ages with "heart trouble" that was not well defined at the time Social History Smoking Status: Former Smoker (quit 1994) Alcohol Use: none Drug Use: none Immunizations History of Influenza Vaccine: N/A History of Tetanus Vaccine?: Yes History of Pneumococcal: Yes History of Hepatitis B Vaccine: No Multi-Drug Resistant Organisms History of MDRO: No Allergies Coded Allergies: Nitroglycerin (Verified Allergy, Intermediate, BP Decreases, HR Increases , 01/02/17) Home Medications Scheduled Aspirin (Aspirin), 81 MG PO QAM Calcium Carbonate-Vitamin D (Calcium + D), 1 TAB PO BID Lisinopril (Zestril), 10 MG PO QAM Metoprolol Succinate (Toprolxl (Toprol-Xl), 200 MG PO QAM Pantoprazole (Protonix), 40 MG PO QAM Ranitidine (Zantac), 150 MG PO HS Rosuvastatin Calcium (Crestor), 20 MG PO HS Warfarin Sod (Jantoven), 4 MG PO UD DAILY Scheduled PRN Albuterol Hfa (Ventolin Hfa), 2-4 PUFFS INH Q6H PRN for Shortness of Breath Albuterol Sulfate (Proair Respiclick), 2 SPRAY INH Q4 PRN for SOB/Wheezing Review of Systems Pertinent positives and negatives reviewed in HPI--all others negative Physical Exam Vital Signs Date Time Temp Pulse Resp B/P (MAP) Pulse Ox O2 Delivery O2 Flow Rate FiO2 01/02/17 17:51 70 110/78 92 Room Air 70 121/56 84 104/57 01/02/17 16:06 36.6 66 18 106/58 95 Room Air General Appearance: WD/WN, no apparent distress Head: normocephalic, atraumatic Eyes: normal inspection, EOMI ENT: hearing grossly normal Neck: supple Respiratory/Chest: normal breath sounds, no respiratory distress Cardiovascular: regular rate, rhythm, no edema Abdomen/GI: non tender, soft Extremities/Musculoskelatal: no calf tenderness, no pedal edema Neurologic/Psych: alert, normal mood/affect, oriented x 3 Skin: warm/dry, + pertinent finding (L chest and breast with bright red rash ) Diagnostics Laboratory Results Results Past 24 Hours Test 01/02/17 17:22 01/02/17 18:07 Range/Units White Blood Count 6.95 4.8-10.8 K/uL Red Blood Count 5.27 4.2-5.4 M/uL Hemoglobin 15.6 12.0-16.0 g/dL Hematocrit 46.2 37-47 % Mean Corpuscular Volume 87.7 80-100 fL Mean Corpuscular Hemoglobin 29.6 25-34 pg Mean Corpuscular Hemoglobin Concent 33.8 32-36 g/dl Platelet Count 130-400 K/uL Mean Platelet Volume 7.4-10.4 fL Neutrophils (%) (Auto) 82.4 % Lymphocytes (%) (Auto) 12.2 % Monocytes (%) (Auto) 3.3 % Eosinophils (%) (Auto) 1.4 % Basophils (%) (Auto) 0.3 % Neutrophils # (Auto) 5.72 1.4-6.5 K/uL Lymphocytes # (Auto) 0.85 1.2-3.4 K/uL Monocytes # (Auto) 0.23 0.11-0.59 K/uL Eosinophils # (Auto) 0.10 0-0.5 K/uL Basophils # (Auto) 0.02 0-0.2 K/uL RDW Standard Deviation 44.5 36.4-46.3 fL RDW Coefficient of Variation 13.9 11.5-14.5 % Immature Granulocyte % (Auto) 0.4 % Immature Granulocyte # (Auto) 0.03 0.00-0.02 K/uL Red Blood Cell Morphology Unremarkable Sodium Level 137 136-145 mmol/L Potassium Level 4.4 3.5-5.1 mmol/L Chloride Level 105 98-107 mmol/L Carbon Dioxide Level 24 21-32 mmol/L Anion Gap 8.0 3-11 mmol/L Blood Urea Nitrogen 23 7-18 mg/dl Creatinine 0.95 0.60-1.20 mg/dl Est Creatinine Clear Calc Drug Dose 47.4 ml/min Estimated GFR () 66.0 Estimated GFR (Non- 57.0 BUN/Creatinine Ratio 24.0 10-20 Random Glucose 79 70-99 mg/dl Calcium Level 7.9 8.5-10.1 mg/dl Total Bilirubin 0.3 0.2-1 mg/dl Direct Bilirubin 0.1 0-0.2 mg/dl Aspartate Amino Transf (AST/SGOT) 37 15-37 U/L Alanine Aminotransferase (ALT/SGPT) 19 12-78 U/L Alkaline Phosphatase 61 45-117 U/L Troponin I < 0.015 0-0.045 ng/ml Total Protein 5.7 6.4-8.2 gm/dl Albumin 2.7 3.4-5.0 gm/dl Prothrombin Time 12.1 9.0-12.0 SECONDS Prothromb Time International Ratio 1.1 0.9-1.1 Activated Partial Thromboplast Time 27.3 21.0-31.0 SECONDS Partial Thromboplastin Ratio 1.1 Microbiology Results 01/02/17 Blood Culture, Received Pending 01/02/17 Blood Culture, Received Pending Diagnostic Radiology CXR neg for acute Impression Assessment and Plan 81 y/o F who was admitted for observation on 01/02 after a near syncopal episode earlier this AM Near syncope: orthostatic hypoTN vs drug reaction vs decreased PO intake seem most likely etiology Noted to have DIASTOLIC orthostatics in the ED, will repeat in AM CBC, PRP WNL Trop neg x1, will repeat serials EKG pending CXR neg T/C ECHO and carotid US if ongoing sx with BP WNL Extravasation rxn: as per oncology, worsening rash is normal course Care at their discretion Dr. Baptiste c/s HTN: stable, continue home meds Hx of PE: pt states she was transitioning from lovenox to coumadin INR subtherapeutic Resume lovenox Monitor Asthma: stable, continue home meds GERD: stable, continue home meds Other: Full code but pt is quite clear that she does not want prolonged mechanical life support or feeding tubes Coumadin and lovenox for DVT proph Reg diet CM: concern from pt's family regarding observation status and copays as they were told on the floor that "all of this would be covered" due to medical error. ED CM informed them that it is unclear what this will actually mean, but that pt does not meet for full admission. Level of Care Telemetry Resuscitation Status FULL RESUSCITATION VTE Prophylaxis VTE Risk Assessment Done? Y/N: Yes Risk Level: Low
[2017-01-02] MEDS ORDERED: IV FLUIDS COMPLETED PRN (20:00)
[2017-01-02] MEDS ORDERED: ENOXAPARIN 150 MG/1ML SYR SQ SCH (20:30)
[2017-01-02 21:23] LABS: URINE APPEARANCE CLEAR (CLEAR); URINE BILIRUBIN NEG (NEG); URINE COLOR YELLOW; URINE EPITHELIAL CELL AUTO 20-30 /lpf (0-5); URINE NITRITE NEG (NEG); URINE PH 5.5 (4.5-7.5); URINE SPECIFIC GRAVITY 1.023 (1.000-1.030); UROBILINOGEN NEG (NEG)
[2017-01-02] MEDS: ONDANSETRON INJ 2 MG/ML 2 ML VIAL IV PRN (21:27)
[2017-01-02 21:32] VITALS: BP 106/62; PULSE 74; TEMP 36.6; O2SAT 94; Ht 152.4 cm; Wt 88.8 kg
[2017-01-02 21:39] LABS: MANUAL MICROSCOPIC REQUIRED? NO; REVIEW REQ? NO
[2017-01-02] MEDS: SODIUM CHLORIDE 0.9% 1000ML 1,000 ML IV SCH (22:17)
[2017-01-02] MEDS: CALCIUM 600MG + VIT D 400 IU TAB PO SCH ×2 (22:17→22:27)
[2017-01-02] MEDS: RANITIDINE HCL 150 MG TAB PO SCH (22:18)
[2017-01-02] MEDS: ROSUVASTATIN CALCIUM 20 MG TAB PO SCH (22:19)
[2017-01-02] MEDS: WARFARIN SOD 4 MG TAB PO SCH (22:19)
--- NOTE | 2017-01-02 23:18 | EMERGENCY ROOM VISIT NOTE ---
History Report prepared by Lizy: Mary Whiteside Under the Supervision of: Dr. Bebo Valentine M.D. First contact with patient: 16:19 Chief Complaint: REFERRED BY DOCTOR Stated Complaint: INFUSION FOR BREAST CANCER, ALMOST PASSED OUT History of Present Illness The patient is a 81 year old female who presents to the Emergency Room with complaints of an episode of a fall occurring 9 hours ago. The patient states that she has breast cancer and was receiving her chemotherapy treatments when the needle slipped out causing the chemotherapeutic agent to extravasate into her left chest and breast 2 days ago. She reports that she was receiving "the ramona" and reports that this is not what slipped out. She is not sure what agent was extravasated. The patient is unsure if this is part of the reason why she fell today. The patient states that she lives alone and got up to go to the bathroom this morning. She reports that she noticed she was extremely hot and diaphoretic. She reports that when she noticed her neck was completely soaked, she decided she needed to go back to bed. She states when she went to turn, she fell. She denies losing consciousness and hitting her head. She denies any injury from the fall other than some minor knee pain. She reports that she laid there for a little and got up to call her daughter. She states that her daughter was there in 15 minutes. She denies noticing any chest pain and shortness of breath. She states that the only thing from the fall that is sore is her knee. She notes that after her fall the extreme heat flush and swelling went away. The patient denies having a fever. She denies nausea, vomiting, and abdominal pain. She notes that she has pain in her chest, but from the chemo still in her chest. The patient reports that the reason she waited to come to the ED was because she had to go get an infusion of the reversal agent. She states that she has needed these since the chemo accident and today was her third infusion. She reports that she left right from there to here. She was seen by the oncologist. She notes that they did not check anything while there. The patient denies hematochezia, melena, urinary symptoms, and weakness on one side of her body. She notes that she just feels fatigued. The patient notes that her breast cancer was in her right breast and she had it removed along with lymph nodes that it had spread to. The patient notes that her breast where the chemo is sitting is redder than it has been. She denies being lightheaded. Source of History: patient Onset: 9 hours ago Position: other (global) Quality: other (global) Timing: other (episode) Associated Symptoms: + diaphoresis, + fatigue, No LOC, No fevers, No chest pain, No SOB, No nausea, No vomiting, No abdominal pain, No melena, No hematochezia, No urinary symptoms, No weakness Note: The patient complains of being extremely hot and her knee being sore. The patient denies being lightheaded. Review of Systems See HPI for pertinent positives & negatives. A total of 10 systems reviewed and were otherwise negative. Past Medical & Surgical Medical Problems: (1) Anticoagulants,Lt,Current Use (2) Asthma, Unspecified, W (Acute) Exacerbation (3) Breast cancer (4) Hypertension Nos (5) Near syncope (6) Old Myocardial Infarct (7) Oth Pulmon Embolism/Infarct Surgical Problems: (1) History of knee replacement Family History Patient reports no known family medical history. Social History Smoking Status: Former Smoker Alcohol Use: none Drug Use: none Housing Status: lives alone Current/Historical Medications Scheduled Aspirin (Aspirin), 81 MG PO QAM Calcium Carbonate-Vitamin D (Calcium + D), 1 TAB PO BID Lisinopril (Zestril), 10 MG PO QAM Metoprolol Succinate (Toprolxl (Toprol-Xl), 200 MG PO QAM Pantoprazole (Protonix), 40 MG PO QAM Ranitidine (Zantac), 150 MG PO HS Rosuvastatin Calcium (Crestor), 20 MG PO HS Warfarin Sod (Jantoven), 4 MG PO UD DAILY Scheduled PRN Albuterol Hfa (Ventolin Hfa), 2-4 PUFFS INH Q6H PRN for Shortness of Breath Albuterol Sulfate (Proair Respiclick), 2 SPRAY INH Q4 PRN for SOB/Wheezing Allergies Coded Allergies: Nitroglycerin (Verified Allergy, Intermediate, BP Decreases, HR Increases , 01/02/17) Physical Exam Vital Signs Date Time Temp Pulse Resp B/P (MAP) Pulse Ox O2 Delivery O2 Flow Rate FiO2 01/02/17 17:51 70 110/78 92 Room Air 70 121/56 84 104/57 01/02/17 16:06 36.6 66 18 106/58 95 Room Air Physical Exam Constitutional: Vital signs reviewed. Eyes: Pupils are equal round reactive to light. Conjunctiva are noninjected. ENT: Pharynx is clear without erythema or exudate. Mucous membranes are moist. Neck supple without meningeal signs. Respiratory: Clear to auscultation bilaterally. Breath sounds are equal bilaterally. Cardiovascular: Regular rate and rhythm. No rubs or gallops. GI: Soft, nondistended and nontender. Bowel sounds are present. Musculoskeletal: No peripheral edema. No lower extremity tenderness. Integumentary: No cyanosis. Diffuse erythema with tenderness and slight induration to the left anterior chest extending into the left breast. The erythema does not extend past the pen charles on her chest and breast. Neurological: The patient is awake and alert. No focal deficits. Psychiatric: Normal affect. Medical Decision & Procedures ER Provider Diagnostic Interpretation: Radiology results as stated below per my review and the radiologist's interpretation: CHEST ONE VIEW PORTABLE CLINICAL HISTORY: 81 years-old Female presenting with eval for pna, multiple nodules seen on CT. TECHNIQUE: Portable upright AP view of the chest was obtained. COMPARISON: 12/30/[address] from 12/31/2016. FINDINGS: Median sternotomy wires intact. Left subclavian Mediport terminates in the mid SVC. Atherosclerosis of the aortic arch. Cardiac silhouette remains enlarged. Nodular opacities seen on CT are not well appreciated on radiograph. Eventration of the left hemidiaphragm noted. No large effusion or pneumothorax. Degenerative changes of the thoracic spine. Upper abdomen normal. IMPRESSION: 1. Nodular opacities seen on recent chest CT are not well appreciated on radiograph. Electronically signed by: Justin Lantigua M.D. 01/02/2017 6:04 PM Dictated Date/Time: 01/02/2017 6:00 PM Laboratory Results 01/02/17 17:22 Red Blood Count 5.27, Mean Corpuscular Volume 87.7, Mean Corpuscular Hemoglobin 29.6, Mean Corpuscular Hemoglobin Concent 33.8, Mean Platelet Volume , Neutrophils (%) (Auto) 82.4, Lymphocytes (%) (Auto) 12.2, Monocytes (%) (Auto) 3.3, Eosinophils (%) (Auto) 1.4, Basophils (%) (Auto) 0.3, Neutrophils # (Auto) 5.72, Lymphocytes # (Auto) 0.85, Monocytes # (Auto) 0.23, Eosinophils # (Auto) 0.10, Basophils # (Auto) 0.02 01/02/17 17:22 Test 01/02/17 17:22 01/02/17 18:07 White Blood Count 6.95 K/uL (4.8-10.8) Red Blood Count 5.27 M/uL (4.2-5.4) Hemoglobin 15.6 g/dL (12.0-16.0) Hematocrit 46.2 % (37-47) Mean Corpuscular Volume 87.7 fL (80-100) Mean Corpuscular Hemoglobin 29.6 pg (25-34) Mean Corpuscular Hemoglobin Concent 33.8 g/dl (32-36) Platelet Count K/uL (130-400) Mean Platelet Volume fL (7.4-10.4) Neutrophils (%) (Auto) 82.4 % Lymphocytes (%) (Auto) 12.2 % Monocytes (%) (Auto) 3.3 % Eosinophils (%) (Auto) 1.4 % Basophils (%) (Auto) 0.3 % Neutrophils # (Auto) 5.72 K/uL (1.4-6.5) Lymphocytes # (Auto) 0.85 K/uL (1.2-3.4) Monocytes # (Auto) 0.23 K/uL (0.11-0.59) Eosinophils # (Auto) 0.10 K/uL (0-0.5) Basophils # (Auto) 0.02 K/uL (0-0.2) RDW Standard Deviation 44.5 fL (36.4-46.3) RDW Coefficient of Variation 13.9 % (11.5-14.5) Immature Granulocyte % (Auto) 0.4 % Immature Granulocyte # (Auto) 0.03 K/uL (0.00-0.02) Red Blood Cell Morphology Unremarkable Anion Gap 8.0 mmol/L (3-11) Est Creatinine Clear Calc Drug Dose 47.4 ml/min Estimated GFR () 66.0 Estimated GFR (Non- 57.0 BUN/Creatinine Ratio 24.0 (10-20) Calcium Level 7.9 mg/dl (8.5-10.1) Total Bilirubin 0.3 mg/dl (0.2-1) Direct Bilirubin 0.1 mg/dl (0-0.2) Aspartate Amino Transf (AST/SGOT) 37 U/L (15-37) Alanine Aminotransferase (ALT/SGPT) 19 U/L (12-78) Alkaline Phosphatase 61 U/L (45-117) Total Protein 5.7 gm/dl (6.4-8.2) Albumin 2.7 gm/dl (3.4-5.0) Prothrombin Time 12.1 SECONDS (9.0-12.0) Prothromb Time International Ratio 1.1 (0.9-1.1) Activated Partial Thromboplast Time 27.3 SECONDS (21.0-31.0) Partial Thromboplastin Ratio 1.1 Laboratory results as reviewed by me. Medications Administered Medications (Trade) Dose Ordered Sig/Sendy Route Start Time Stop Time Status Last Admin Dose Admin Sodium Chloride 500 ml @ 999 mls/hr Q31M STAT IV 01/02/17 18:03 01/02/17 18:33 DC 01/02/17 18:03 999 MLS/HR Sodium Chloride 1,000 ml @ 50 mls/hr Q20H IV 01/02/17 19:07 02/01/17 19:06 01/02/17 22:17 50 MLS/HR ECG Indication: syncope Rate (beats per minute): 68 Rhythm: sinus rhythm Findings: 1st degree AV block, no acute ischemic change, no ectopy ED Course 1619: The patient was evaluated in room B8. A complete history and physical exam was performed. 1718: I discussed the patient's case with Dr. Summers. He states he saw the patient today and doesn't think that the area is infected. He states her skin looks like what it would normally look like with extravasate. He notes that the agent was Doxorubicin. He said if everything looked fine that she could follow up in the office tomorrow. 1803: Ordered NSS 500 ml @ 999 mls/hr IV. 1805: I reevaluated the patient and she states that the redness has tripled since Dr. Summers has last seen her. Her daughter states that they are uncomfortable with taking her home. 1830: I discussed the patient's case with Dr. Summers again and reevaluated the patient. The redness has not gone past the original pen arks the nurse made on Tuesday and the daughter spoke directly to Dr. Summers. She became very frustrated. Dr. Summers stated that someone could see her tomorrow if we hospitalize her here. 1843: I spoke with Dr. Coon. We discussed the patient and her results. The patient will be further evaluated by her. 1845: I reevaluated the patient and discussed her test results with her and her family. Medical Decision This is a 81-year-old female who presents with a near-syncopal episode. Differential diagnosis includes vasovagal syncope, orthostatic hypotension, dehydration, metabolic derangement, cardiac, infection, anemia. I did perform a limited focused review of portions of the patient's old chart on the electronic medical record. The patient has had no recent pertinent visits to this hospital. The patient is normotensive. She received Dexrazoxane today. I did evaluate the patient as noted above. The patient had a near-syncopal episode this morning. She did not injure herself when she fell other than some minor pain to her knee. She did not have any LOC. She denies having any chest discomfort and shortness of breath. She did have extravasation of her chemotherapeutic agent 2 days ago and did receive IV infusion of dexrazoxane. She was evaluated by oncology and sent down here for evaluation because of her near syncope. The patient was placed on a continuous cardiac monitor technician. Orthostatic vital signs were obtained. She did have some mild orthostatic hypotension. She was given normal saline IV. I did order and personally review the patient's 12-lead EKG and chest x-ray as described above. I did order and review the patient's blood work as noted in the electronic medical record. The patient does not have any signs of pancytopenia. Her platelet count was not determined because of clumping. According to the oncologist the affects of her chemotherapeutic agent on her cell count would take much longer. I did stress the case with the oncologist station engineer who had seen her today. He did not feel that there was anything specific that needed to be done at this time. She was already treated appropriately for the extravasation. He stated that while necrosis is possible it is a late finding and would not occur so quickly. He did not believe that there was any infection. She has had no fever or elevation of the white blood cell count. The patient will be kept in the hospital and then oncologist will see her tomorrow morning for further assessment. I did speak to the hospitalist and case repairer. Medication Reconcilliation Current Medication List: was personally reviewed by me Blood Pressure Screening Patient's blood pressure: Low blood pressure Will be further monitored by hospitalist. Consults Time Called: 163 Consulting Physician: Dr. Baptiste Returned Call: [phone] I discussed the patient's case with Dr. Summers. He states he saw the patient today and doesn't think that the area is infected. He states her skin looks like what it would normally look like with extravasate. He notes that the agent was Doxorubicin . He said if everything looked fine that she could follow up in the office tomorrow. Additional Consults: Time Called: 181 Consulted Physician: Dr. Summers Returned Call: [phone] Additional Comments: I discussed the patient's case with Dr. Summers again and reevaluated the patient. The redness has not gone past the original pen arks the nurse made on Tuesday and the daughter spoke directly to Dr. Summers. She became very frustrated. Dr. Summers stated that someone could see her tomorrow if we hospitalize her here. Time Called: 184 Consulted Physician: Dr. Coon Returned Call: [phone] Additional Comments: I spoke with Dr. Coon. We discussed the patient and her results. The patient will be further evaluated by her. Impression Primary Impression: Near syncope Additional Impression: Orthostatic hypertension Scribe Attestation The scribe's documentation has been prepared under my direct and personally reviewed by me in its entirety. I confirm that the note above accurately reflects all work, treatment, procedures, and medical decision making performed by me. Departure Information Dispostion Being Evaluated By Hospitalist Referrals No Doctor, Assigned (PCP) Patient Instructions My [facility] Problem Qualifiers
[2017-01-03] VITALS: BP_SYST 112; BP_SYST 119; BP_SYST 93; BP_DIAS 52; BP_DIAS 64; BP_DIAS 71; PULSE 72; PULSE 78; PULSE 83; TEMP 37.2; O2SAT 98
[2017-01-03 04:17] VITALS: BP 99/67; PULSE 79; TEMP 37; O2SAT 96
[2017-01-03 06:13] LABS: INR 1.4 (0.9-1.1); PROTHROMBIN TIME (PATIENT) 15.4 SECONDS (9.0-12.0)
[2017-01-03 07:01] VITALS: BP 103/69; PULSE 80; TEMP 36.9; O2SAT 95
[2017-01-03] MEDS: ONDANSETRON INJ 2 MG/ML 2 ML VIAL IV PRN ×2 (07:49→13:52)
[2017-01-03] MEDS: CALCIUM 600MG + VIT D 400 IU TAB PO SCH ×2 (07:51→20:25)
[2017-01-03] MEDS: ASPIRIN 81 MG ECTAB PO SCH (07:52)
[2017-01-03] MEDS: PANTOprazole SOD 40 MG TAB PO SCH (07:52)
[2017-01-03] MEDS: LISINOPRIL 10 MG TAB PO SCH (07:52)
[2017-01-03] MEDS ORDERED: METOPROLOL SUCC 50MG EXT REL TAB PO SCH (09:00)
--- NOTE | 2017-01-03 09:12 | Hospitalist Progress Note ---
Hospitalist Progress Note Date of Service Jan 03, 2017. Subjective Pt evaluation today including: conversation w/ patient, conversation w/ family , physical exam, chart review, lab review, review of studies Pain: None PO Intake: Fair Voiding: no voiding problems The patient was seen and examined this morning. Pt reports feeling ok this morning, soreness in the left chest is a little better, but her skin is starting to blister today s/p infiltration of chemo. She denies feeling lightheaded or dizzy today but has not been up to walk around much. Since having chemo she has been nauseous and not able to tolerate water alone. Her next cycle is scheduled on 01/21- but reports Balaban may be pushing this back-he plans to see her on Tuesday. She denies any fever, chills or sweats, sob, chest pain. Constitutional: No fever, No chills, No sweats, No fatigue Eyes: No redness, No diplopia ENT: No nasal symptoms, No dental problems Respiratory: No cough, No shortness of breath Cardiovascular: No chest pain, No edema Breast: + problem reported (See hpi) Abdomen: No pain, No nausea, No vomiting, No diarrhea, No constipation Musculoskeletal: No joint pain, No muscle pain Female : No dysuria Neurologic: No memory loss, No weakness Endo: No fatigue Skin: No rash, No itch Objective Vital Signs Date Time Temp Pulse Resp B/P (MAP) Pulse Ox O2 Delivery O2 Flow Rate FiO2 01/03/17 08:00 Room Air 01/03/17 07:01 36.9 80 20 103/69 (80) 95 Room Air 01/03/17 04:17 37.0 79 18 99/67 (78) 96 Room Air 01/03/17 04:00 Room Air 01/03/17 00:01 Room Air 01/03/17 00:00 37.2 72 18 119/64 (82) 98 Room Air 78 93/52 (66) 83 112/71 (85) 01/02/17 21:32 36.6 74 18 106/62 94 Room Air 01/02/17 20:20 65 16 95 01/02/17 19:29 68 16 111/53 95 Room Air 01/02/17 17:51 70 110/78 92 Room Air 70 121/56 84 104/57 01/02/17 16:06 36.6 66 18 106/58 95 Room Air Physical Exam General Appearance: WD/WN, no apparent distress Eyes: PERRL, EOMI ENT: hearing grossly normal, pharynx normal Neck: supple, no JVD Respiratory/Chest: + pertinent finding (+ Erythema, edema, small vesicular lesions forming over the left chest wall, this extends down and cover the entire left breast and has been outlined, no extension past charles. +port in place.) Cardiovascular: regular rate, rhythm, no edema, no murmur Abdomen: non tender, soft, + pertinent finding (slightly hypoactive bowel sounds) Extremities: non-tender, no pedal edema, no calf tenderness Neurologic/Psychiatric: alert, oriented x 3, + depressed affect Skin: normal color, warm/dry Laboratory Results Last 24 Hours Test 01/02/17 17:22 01/02/17 18:07 01/02/17 20:54 01/02/17 23:03 White Blood Count 6.95 K/uL Red Blood Count 5.27 M/uL Hemoglobin 15.6 g/dL Hematocrit 46.2 % Mean Corpuscular Volume 87.7 fL Mean Corpuscular Hemoglobin 29.6 pg Mean Corpuscular Hemoglobin Concent 33.8 g/dl Platelet Count K/uL Mean Platelet Volume fL Neutrophils (%) (Auto) 82.4 % Lymphocytes (%) (Auto) 12.2 % Monocytes (%) (Auto) 3.3 % Eosinophils (%) (Auto) 1.4 % Basophils (%) (Auto) 0.3 % Neutrophils # (Auto) 5.72 K/uL Lymphocytes # (Auto) 0.85 K/uL Monocytes # (Auto) 0.23 K/uL Eosinophils # (Auto) 0.10 K/uL Basophils # (Auto) 0.02 K/uL RDW Standard Deviation 44.5 fL RDW Coefficient of Variation 13.9 % Immature Granulocyte % (Auto) 0.4 % Immature Granulocyte # (Auto) 0.03 K/uL Red Blood Cell Morphology Unremarkable Sodium Level 137 mmol/L Potassium Level 4.4 mmol/L Chloride Level 105 mmol/L Carbon Dioxide Level 24 mmol/L Anion Gap 8.0 mmol/L Blood Urea Nitrogen 23 mg/dl Creatinine 0.95 mg/dl Est Creatinine Clear Calc Drug Dose 47.4 ml/min Estimated GFR () 66.0 Estimated GFR (Non- 57.0 BUN/Creatinine Ratio 24.0 Random Glucose 79 mg/dl Calcium Level 7.9 mg/dl Total Bilirubin 0.3 mg/dl Direct Bilirubin 0.1 mg/dl Aspartate Amino Transf (AST/SGOT) 37 U/L Alanine Aminotransferase (ALT/SGPT) 19 U/L Alkaline Phosphatase 61 U/L Troponin I < 0.015 ng/ml < 0.015 ng/ml Total Protein 5.7 gm/dl Albumin 2.7 gm/dl Prothrombin Time 12.1 SECONDS Prothromb Time International Ratio 1.1 Activated Partial Thromboplast Time 27.3 SECONDS Partial Thromboplastin Ratio 1.1 Urine Color YELLOW Urine Appearance CLEAR Urine pH 5.5 Urine Specific [place] 1.023 Urine Protein NEG Urine Glucose (UA) NEG Urine Ketones NEG Urine Occult Blood TRACE Urine Nitrite NEG Urine Bilirubin NEG Urine Urobilinogen NEG Urine Leukocyte Esterase NEG Urine WBC (Auto) 1-5 /hpf Urine RBC (Auto) 0-4 /hpf Urine Hyaline Casts (Auto) 0 /lpf Urine Epithelial Cells (Auto) 20-30 /lpf Urine Bacteria (Auto) NEG Test 01/03/17 05:29 Prothrombin Time 15.4 SECONDS Prothromb Time International Ratio 1.4 Troponin I < 0.015 ng/ml Assessment and Plan 81 y/o F who was admitted for observation on 01/02 after a near syncopal episode earlier this AM. She recently was started on chemotherapy for R breast carcinoma Near syncope: - orthostatic hypoTN vs drug reaction vs decreased PO intake seem most likely etiology - continued diastolic orthostatic overnight are positive- continue to trend - Will check echocardiogram and carotid dopplers today - Will also reduce metoprolol succinate 200mg to 150 mg to start tomorrow. - no leukocytosis - Troponins negative x 2 Extravasation rxn: Lobular breast carcinoma ER MD positive HER-2/bryce negative and did have many lymph nodes positive - PET negative for metastasis - Follows with Dr. Monroy as outpt. - Mediport in Left subclavian last on 12/29 - Chemotherapy with Adriamycin and Cytoxan given IV every 3 weeks 4 sessions followed by weekly Taxol began on 12/31. - extravasation occurred but unknown which agent cause it. - was given Zinecard for 3 days and yesterday had a overall feeling weak episode and the patient was admitted for observation overnight. - Start prednisone 10 mg daily today per heme/onc HTN: stable, - BP running slightly low - orthostatic positive. Reduce metoprolol as above Hx of PE: pt states she was transitioning from lovenox to coumadin - INR 1.4 today- follow PT/INR with am labs - Continue lovenox bridge with 1.5 mg/kg, along with coumadin 4 mg daily Asthma: stable, continue home meds GERD: stable, continue home meds DVT ppx: lovenox, coumadin CODE Status: Full code Disposition: From home, admitted on observation - d/c likely within 24 hours.
[2017-01-03 11:08] VITALS: BP_SYST 109; BP_SYST 121; BP_SYST 99; BP_DIAS 62; BP_DIAS 74; BP_DIAS 79; PULSE 47; PULSE 83; PULSE 99; TEMP 36.7; O2SAT 96
--- NOTE | 2017-01-03 11:57 | Oncology Consultation ---
Oncology/Heme Consultation Date of Consultation: Jan 03, 2017. Attending Physician: Lesia Coon DO Reason for Consultation: Patient with a history of right breast carcinoma. Recent IV chemotherapy extravasation History of Present Illness Ms. Valdez is a delightful 81-year-old female with a history of right breast carcinoma. The lesion is a lobular breast carcinoma ER CO positive HER-2/bryce negative and did have many lymph nodes positive. A baseline PET CT scan showed no definite evidence of metastatic disease. A port was placed in the left subclavian and the patient was begun on chemotherapy. The adjuvant program was to be made up of Adriamycin and Cytoxan given IV every 3 weeks 4 sessions followed by weekly Taxol. She just began this program on Tuesday. Unfortunately an extravasation occurred. It is uncertain as to whether the extravasation was from Adriamycin or Cytoxan. The blood return was noted through the port while receiving Adriamycin and throughout that infusion. She has been given Zinecard for 3 days and yesterday had a overall feeling weak episode and the patient was admitted for observation overnight. Past Medical/Surgical History Medical Problems: (1) Orthostatic hypertension Status: Acute Family History Patient reports no known family medical history. Social History Smoking Status: Former Smoker Alcohol Use: none Drug Use: none Housing Status: lives alone Allergies Coded Allergies: Nitroglycerin (Verified Allergy, Intermediate, BP Decreases, HR Increases , 01/02/17) Home Medications Scheduled Aspirin (Aspirin), 81 MG PO QAM Calcium Carbonate-Vitamin D (Calcium + D), 1 TAB PO BID Lisinopril (Zestril), 10 MG PO QAM Metoprolol Succinate (Toprolxl (Toprol-Xl), 200 MG PO QAM Pantoprazole (Protonix), 40 MG PO QAM Ranitidine (Zantac), 150 MG PO HS Rosuvastatin Calcium (Crestor), 20 MG PO HS Warfarin Sod (Jantoven), 4 MG PO UD DAILY Scheduled PRN Albuterol Hfa (Ventolin Hfa), 2-4 PUFFS INH Q6H PRN for Shortness of Breath Albuterol Sulfate (Proair Respiclick), 2 SPRAY INH Q4 PRN for SOB/Wheezing Current Inpatient Medications Current Inpatient Medications Medications (Trade) Dose Ordered Sig/Sendy Route Start Time Stop Time Status Last Admin Dose Admin Sodium Chloride 1,000 ml @ 50 mls/hr Q20H IV 01/02/17 19:07 02/01/17 19:06 01/02/17 22:17 50 MLS/HR Acetaminophen (Tylenol Tab) 650 mg Q4H PRN PO 01/02/17 19:15 02/01/17 19:14 Magnesium Hydroxide (Milk Of Magnesia Susp) 30 ml Q12H PRN PO 01/02/17 19:15 02/01/17 19:14 Ondansetron HCl (Zofran Inj) 4 mg Q6H PRN IV 01/02/17 19:15 02/01/17 19:14 01/03/17 07:49 4 MG Albuterol (Ventolin Hfa Inhaler) 2 puffs Q4H PRN INH 01/02/17 19:15 02/01/17 19:14 Aspirin (Ecotrin Tab) 81 mg QAM PO 01/03/17 09:00 02/02/17 08:59 01/03/17 07:52 81 MG Lisinopril (Zestril Tab) 10 mg QAM PO 01/03/17 09:00 02/02/17 08:59 01/03/17 07:52 10 MG Metoprolol Succinate (Toprol Xl Tab) 200 mg QAM PO 01/03/17 09:00 02/02/17 08:59 01/03/17 07:52 200 MG Pantoprazole Sodium (Protonix Tab) 40 mg QAM PO 01/03/17 09:00 02/02/17 08:59 01/03/17 07:52 40 MG Rosuvastatin Calcium (Crestor Tab) 20 mg HS PO 01/02/17 21:00 02/01/17 20:59 01/02/17 22:19 20 MG Warfarin Sodium (Coumadin Tab) 4 mg DAILY@1600 PO 01/02/17 22:00 02/01/17 21:59 01/02/17 22:19 4 MG Calcium/Vitamin D (Caltrate Plus Tab) 1 tab BID PO 01/02/17 21:00 02/01/17 20:59 01/03/17 07:51 1 TAB Ranitidine HCl (zANTac TAB) 150 mg HS PO 01/02/17 21:00 02/01/17 20:59 01/02/17 22:18 150 MG Enoxaparin Sodium (Lovenox Inj) 129 mg Q24H SQ 01/03/17 21:00 02/02/17 20:59 Miscellaneous (Iv Fluids Completed) 1 ea PRN PRN N/A 01/02/17 20:00 01/02/18 19:59 Review of Systems Constitutional: Negative for weight loss, night sweats, or fever Eyes: Negative for event change of vision ENT: Negative for epistaxis, nasal discharge, sore throat, or deafness Cardiovascular: Negative for chest pain, palpitations, dizziness, diaphoresis Respiratory: Negative for new shortness of breath,hemoptysis, or purulent cough Gastrointestinal: Negative for diarrhea, hematemesis, melena, nausea, vomiting , or dyspepsia Integumentary (skin): He has developed edema and erythema involving the left breast Genitourinary: Negative for urinary frequency, hematuria, or dysuria Neurological: Negative for weakness, seizure activity, headache, or dizziness Lymphatic/Hematologic: Negative for petechiae, bleeding or new adenopathy Musculoskeletal: Negative for new joint or back pain Allergic/Immunologic: Negative for unusual rash or pruritis. Physical Exam Date Time Temp Pulse Resp B/P (MAP) Pulse Ox O2 Delivery O2 Flow Rate FiO2 01/03/17 11:08 36.7 47 20 121/79 (93) 96 Room Air 83 109/74 (86) 99 99/62 (74) 01/03/17 08:00 Room Air 01/03/17 07:01 36.9 80 20 103/69 (80) 95 Room Air 01/03/17 04:17 37.0 79 18 99/67 (78) 96 Room Air 01/03/17 04:00 Room Air 01/03/17 00:01 Room Air 01/03/17 00:00 37.2 72 18 119/64 (82) 98 Room Air 78 93/52 (66) 83 112/71 (85) 01/02/17 21:32 36.6 74 18 106/62 94 Room Air 01/02/17 20:20 65 16 95 01/02/17 19:29 68 16 111/53 95 Room Air 01/02/17 17:51 70 110/78 92 Room Air 70 121/56 84 104/57 01/02/17 16:06 36.6 66 18 106/58 95 Room Air Constitutional: vitals are stable. Eyes: Eyes are NOAH EOMI without conjuctival erythema or icterus. ENT: External examination was negative for masses. Neck: Negative for masses or palpable thyromegaly Respiratory: Lung sounds were generally clear bilaterally Cardiovascular: Heart was RRR without significant murmur, gallops aoe rubs Gastrointestinal: No palpable hepatic or splenomegaly. The abdomen was soft with normal bowel sounds. Lymphatic system: there was no palpable peripheral lymphadenopathy Musculoskeletal System: The musculoskeletal system seemed concordant with age. Skin: The skin was negative for jaundice. Neurologic exam: The exam was negative for any focal findings. Deep tendon reflexes were equal and symmetrical. Psychiatric exam: Was essentially negative with normal mood and effect. Breast exam: Done with patient permission was positive for erythema affecting the left breast. This involves pretty much the entirety of the left breast. Lines outlining the extent of erythema have been placed. The central aspect of this redness is somewhat dark and worrisome. Patient states that is not as tender as before and is mildly pruritic now. Laboratory Results Last 24 Hours Test 01/02/17 17:22 01/02/17 18:07 01/02/17 20:54 01/02/17 23:03 White Blood Count 6.95 K/uL Red Blood Count 5.27 M/uL Hemoglobin 15.6 g/dL Hematocrit 46.2 % Mean Corpuscular Volume 87.7 fL Mean Corpuscular Hemoglobin 29.6 pg Mean Corpuscular Hemoglobin Concent 33.8 g/dl Platelet Count K/uL Mean Platelet Volume fL Neutrophils (%) (Auto) 82.4 % Lymphocytes (%) (Auto) 12.2 % Monocytes (%) (Auto) 3.3 % Eosinophils (%) (Auto) 1.4 % Basophils (%) (Auto) 0.3 % Neutrophils # (Auto) 5.72 K/uL Lymphocytes # (Auto) 0.85 K/uL Monocytes # (Auto) 0.23 K/uL Eosinophils # (Auto) 0.10 K/uL Basophils # (Auto) 0.02 K/uL RDW Standard Deviation 44.5 fL RDW Coefficient of Variation 13.9 % Immature Granulocyte % (Auto) 0.4 % Immature Granulocyte # (Auto) 0.03 K/uL Red Blood Cell Morphology Unremarkable Sodium Level 137 mmol/L Potassium Level 4.4 mmol/L Chloride Level 105 mmol/L Carbon Dioxide Level 24 mmol/L Anion Gap 8.0 mmol/L Blood Urea Nitrogen 23 mg/dl Creatinine 0.95 mg/dl Est Creatinine Clear Calc Drug Dose 47.4 ml/min Estimated GFR () 66.0 Estimated GFR (Non- 57.0 BUN/Creatinine Ratio 24.0 Random Glucose 79 mg/dl Calcium Level 7.9 mg/dl Total Bilirubin 0.3 mg/dl Direct Bilirubin 0.1 mg/dl Aspartate Amino Transf (AST/SGOT) 37 U/L Alanine Aminotransferase (ALT/SGPT) 19 U/L Alkaline Phosphatase 61 U/L Troponin I < 0.015 ng/ml < 0.015 ng/ml Total Protein 5.7 gm/dl Albumin 2.7 gm/dl Prothrombin Time 12.1 SECONDS Prothromb Time International Ratio 1.1 Activated Partial Thromboplast Time 27.3 SECONDS Partial Thromboplastin Ratio 1.1 Urine Color YELLOW Urine Appearance CLEAR Urine pH 5.5 Urine Specific [place] 1.023 Urine Protein NEG Urine Glucose (UA) NEG Urine Ketones NEG Urine Occult Blood TRACE Urine Nitrite NEG Urine Bilirubin NEG Urine Urobilinogen NEG Urine Leukocyte Esterase NEG Urine WBC (Auto) 1-5 /hpf Urine RBC (Auto) 0-4 /hpf Urine Hyaline Casts (Auto) 0 /lpf Urine Epithelial Cells (Auto) 20-30 /lpf Urine Bacteria (Auto) NEG Test 01/03/17 05:29 Prothrombin Time 15.4 SECONDS Prothromb Time International Ratio 1.4 Troponin I < 0.015 ng/ml Assessment & Plan Skin irritation from chemotherapy extravasation. Blood work is acceptable. I suspect she can be discharged. We will want to see her Tuesday afternoon in our clinic. I will prescribe prednisone 10 mg a day to help hopefully with some of the inflammation as well as to help with her vibrancy. She does have Zofran at home for nausea. I reviewed with her today that the next few days are obviously important as far as the extent of inflammation but that frankly we will have to see how this plays out in regards to skin damage over the next week or 2.
[2017-01-03] MEDS ORDERED: POLY335019 PO (12:57)
[2017-01-03] MEDS ORDERED: PRD10 PO (12:57)
--- NOTE | 2017-01-03 13:51 | DIAGNOSTIC IMAGING REPORT ---
ULTRASOUND OF THE CAROTID ARTERIES CLINICAL HISTORY: Syncope. COMPARISON STUDY: No priors. TECHNIQUE: Real-time, grayscale, and color Doppler sonography of the carotid arteries is performed. Images are reviewed in the transverse and longitudinal planes. FINDINGS: Blood pressures were not assessed due to previous mastectomy and postoperative change. The carotid arteries are patent bilaterally and demonstrate antegrade flow. There is moderate echogenic shadowing atherosclerotic plaque seen in the carotid bulbs bilaterally, right greater than left. The cardiac tracings appear irregular on several of the provided images. Normal doppler arterial waveforms are seen throughout. Velocity measurements are listed below. Common carotid peak systolic velocity (cm/sec): RIGHT: 98 LEFT: 109 ICA proximal peak systolic velocity (cm/sec): RIGHT: 118 LEFT: 71 ICA mid peak systolic velocity (cm/sec): RIGHT: 116 LEFT: 92 ICA distal peak systolic velocity (cm/sec): RIGHT: 124 LEFT: 94 ICA/CC peak systolic ratio: RIGHT: 1.3 LEFT: 0.9 Antegrade flow was shown in the vertebral arteries. The external carotid arteries are patent. IMPRESSION: 1. There is no sonographic evidence of hemodynamically significant stenosis in the right or left carotid arterial system. 2. Antegrade flow is shown in the vertebral arteries. 3. The cardiac pulsations appear irregular on several of the tracings. Correlate clinically and with EKG for evidence of arrhythmia. Electronically signed by: Kodi Ro M.D. 01/03/2017 1:50 PM Dictated Date/Time: 01/03/2017 1:47 PM
[2017-01-03] MEDS: SODIUM CHLORIDE 0.9% 1000ML 1,000 ML IV SCH (15:07)
[2017-01-03 15:20] VITALS: BP 114/77; PULSE 80; TEMP 36.6; O2SAT 99
[2017-01-03] MEDS: WARFARIN SOD 4 MG TAB PO SCH (16:31)
--- NOTE | 2017-01-03 16:51 | ECHOCARDIOGRAM REPORT ---
*NOTICE TO RECEIVING DEMOCRAT AGENCY This information is strictly Confidential and protected under [place] law. [place] law prohibits you from making any further disclosure of this information unless further disclosure is expressly permitted by the written consent of the person to whom it pertains or is authorized by law. A general authorization for the release of medical or other information is not sufficient for this purpose. Hospital accepts no responsibility if the information is made available to any other person, INCLUDING THE PATIENT. Interpretation Summary * EXTREMELY DIFFICULT IMAGES, PATIENT UNDERGOING RADIATION AND CHEMO, SEVERE COSTELLO ON LEFT BREAST * Name: NANCY STARKS Study Date: 01/03/2017 02:21 PM BP: 99/62 mmHg * Patient Location: C.2T\S\S239\S\1 HR: 99 * : 1935 (M/d/yyyy) Gender: Female Height: 60 in * Age: 81 yrs Ethnicity: CA Weight: 196 lb * Ordering Physician: Aimee Salcedo * Referring Physician: BRENDAN * Performed By: Elisa Reynaga RDCS * * Reason For Study: SYCNOPE * BSA: 1.9 m2 * -- Conclusions -- * Technically limited study * 1. Normal LV size, borderline concentric LVH. * 2. Low normal LV function. LVEF 50-55%. Akinetic base to mid inferior and septal arana. * 3. Normal RV size, mildly reduced function. * 4. No significant valvular abnormalities. * 5. Compared with prior study on 04/29/2014: No significant changes. Procedure Details * A contrast injection of Definity was performed to improve assessment of LV function. * Contrast was injected into an intravenous site in the left arm. * One vial of Definity ultrasound contrast was diluted in normal saline to a total volume of 10 ml. A total of '2' ml of solution was administered during imaging. * Lot # [id number] of Definity utilized for procedure. * Expiration date JAN 12. * The attending nurse who injected the contrast agent was VIPUL MORTENSEN RN. Left Ventricle * The left ventricle is grossly normal size. * There is borderline concentric left ventricular hypertrophy. * Left ventricular systolic function is low normal. * Ejection Fraction = 50-55%. * Akinetic base to mid inferior and septal arana. Right Ventricle * The right ventricle is grossly normal size. * The right ventricular systolic function is mildly reduced. Atria * The left atrial size is normal. * Right atrial size is normal. * No ASD detected; PFO is not assessed. Mitral Valve * The mitral valve is grossly normal. * There is no mitral valve stenosis. * There is trace mitral regurgitation. Tricuspid Valve * The tricuspid valve is not well visualized. * No tricuspid regurgitation. Aortic Valve * The aortic valve is not well visualized. * No hemodynamically significant valvular aortic stenosis. * There is no significant aortic regurgitation. Pulmonic Valve * The pulmonic valve is not well visualized. Great Vessels * The aortic root and proximal ascending aorta are normal sized. Pericardium/Pleural * There is no pericardial effusion. MMode 2D Measurements and Calculations Ao root diam 3.1 cm Ao root area 7.6 cm\S\2 LVAd ap4 23.0 cm\S\2 LVLd ap4 7.1 cm EDV(MOD-sp4) 61.4 ml EDV(sp4-el) 62.7 ml LVAs ap4 12.9 cm\S\2 LVLs ap4 5.5 cm ESV(MOD-sp4) 26.7 ml ESV(sp4-el) 25.7 ml EF(MOD-sp4) 56.5 % EF(sp4-el) 59.1 % LVAd ap2 21.2 cm\S\2 LVLd ap2 7.0 cm EDV(MOD-sp2) 53.5 ml EDV(sp2-el) 54.7 ml LVAs ap2 11.6 cm\S\2 LVLs ap2 5.8 cm ESV(MOD-sp2) 19.1 ml ESV(sp2-el) 19.5 ml EF(MOD-sp2) 64.3 % EF(sp2-el) 64.3 % LVLd %diff -2.66 % EDV(MOD-bp) 58.6 ml LVLs %diff 5.8 % ESV(MOD-bp) 22.7 ml EF(MOD-bp) 61.3 % SV(MOD-sp4) 34.7 ml SI(MOD-sp4) 18.8 ml/m\S\2 SV(MOD-sp2) 34.4 ml SI(MOD-sp2) 18.6 ml/m\S\2 SV(MOD-bp) 35.9 ml SI(MOD-bp) 19.4 ml/m\S\2 SV(sp4-el) 37.1 ml SI(sp4-el) 20.0 ml/m\S\2 SV(sp2-el) 35.1 ml SI(sp2-el) 19.0 ml/m\S\2 Doppler Measurements and Calculations MV E max kathie 91.2 cm/sec MV A max kathie 125.1 cm/sec MV E/A 0.73 MV dec time 0.25 sec Ao V2 max 129.0 cm/sec Ao max PG 6.7 mmHg Ao max PG (full) 4.6 mmHg LV V1 max PG 2.0 mmHg LV V1 max 71.3 cm/sec
[2017-01-03 19:48] VITALS: BP 126/78; PULSE 80; TEMP 36.6; O2SAT 94
[2017-01-03] MEDS: ROSUVASTATIN CALCIUM 20 MG TAB PO SCH (20:24)
[2017-01-03] MEDS: RANITIDINE HCL 150 MG TAB PO SCH (20:24)
[2017-01-03] MEDS ORDERED: ENOXAPARIN SQ SCH (21:00)
[2017-01-03] MEDS ORDERED: ENOXAPARIN 150 MG/1ML SYR SQ SCH (21:00)
[2017-01-04] VITALS (9 sets, daily range): BP systolic 91–132; BP diastolic 46–77; PULSE 20–106; TEMP 36.5–37; O2SAT 94–97
[2017-01-04 07:27] LABS: PROTHROMBIN TIME (PATIENT) 33.4 SECONDS (9.0-12.0)
--- NOTE | 2017-01-04 08:26 | HEME/ONC PROGRESS NOTE ---
DATE: 01/04/2017 DIAGNOSES: 1. Near syncopal episode. 2. Right breast carcinoma. 3. Chemotherapy extravasation. 4. Orthostatic hypotension. SUBJECTIVE: I visited with Phill at bedside today. She was admitted back on January 03 with nears syncopal episode. Phill is well known to [facility] recently diagnosed with breast cancer status post her initial course of Adriamycin and cyclophosphamide. Unfortunately, during treatment developed extravasation in the left chest wall. The patient was getting antidote against Cytoxan and Adriamycin. She suffered a near syncopal episode at home but did not lose consciousness. She admits to feeling nauseated, which has been amenable to antiemetics. Today, she seems to be feeling much better and is sitting at bedside eating breakfast. PHYSICAL EXAMINATION: GENERAL: She is in no acute distress. VITAL SIGNS: Temperature 36.9, pulse 83, respirations 20, and blood pressure 132/77. SKIN: She has a large area of erythema just above the left breast indirect sales representative of the extravasation. HEENT: Oral mucosa without erythema or ulceration. HEART: Regular rate and rhythm. LUNGS: Clear to auscultation bilaterally. ABDOMEN: Soft, nontender, nondistended. EXTREMITIES: No clubbing, cyanosis or edema. NEUROLOGIC: Grossly intact. LABORATORY DATA: Peripheral blood counts and serum chemistries are pending. RADIOGRAPHIC DATA: CT scan performed on December 31 reveals a 13 x 9 cm loculated fluid collection within the left lateral breast and axilla. Increased number of multiple bilateral pulmonary nodules. IMPRESSION: 1. Near syncope. 2. Chemotherapy extravasation. 3. Right breast cancer. PLAN: Phill seems to be doing much better today, tolerating diet. Unclear if she has ambulated without assistance and needs to do so prior to discharge. As the extravasation seems to be improving; however, there is still obvious erythema right round the MediPort site. I advised her that I would discuss where we go from here regarding further chemotherapy. I also suggest that general surgery look into readjusting or reinstalling a new port to provide better access for chemotherapy and frequent laboratory draw. We will continue to follow her closely as an outpatient. She has a previously scheduled appointment prior to cycle #[address] in the next couple of weeks. Continue medical management as ordered. Thank you very much for assisting us in the care of this very pleasant elderly patient.
[2017-01-04] MEDS: CALCIUM 600MG + VIT D 400 IU TAB PO SCH ×2 (08:41→21:05)
[2017-01-04] MEDS: LISINOPRIL 10 MG TAB PO SCH (08:41)
[2017-01-04] MEDS: PANTOprazole SOD 40 MG TAB PO SCH (08:41)
[2017-01-04] MEDS: ASPIRIN 81 MG ECTAB PO SCH (08:41)
[2017-01-04] MEDS ORDERED: METOPROLOL SUCC 50MG EXT REL TAB PO SCH (09:00)
--- NOTE | 2017-01-04 09:27 | Hospitalist Progress Note ---
Hospitalist Progress Note Date of Service Jan 04, 2017. Subjective Pt evaluation today including: conversation w/ patient, physical exam, chart review, lab review, review of studies, conversation w/ mainframe consultant Pain: R chest wall soreness PO Intake: Good Voiding: no voiding problems The patient was seen and examined this morning. Pt reports doing better today than yesterday, she feels better overall, reports was able to eat breakfast today and was not nauseous. She has not had a BM in 3 days due to not eating and being nauseous. Constitutional: No fever, No chills, No fatigue Eyes: No diplopia ENT: No nasal symptoms, No trouble swallowing Respiratory: + cough, + wheezing, No shortness of breath Cardiovascular: + see HPI, No chest pain, No edema, No palpitations Abdomen: No pain, No nausea, No vomiting, No diarrhea, No constipation Musculoskeletal: No joint pain, No swelling Female : No dysuria Neurologic: No memory loss, No weakness Skin: No rash, No itch Objective Vital Signs Date Time Temp Pulse Resp B/P (MAP) Pulse Ox O2 Delivery O2 Flow Rate FiO2 01/04/17 07:22 36.9 83 20 132/77 (95) 97 Room Air 93 119/76 (90) 106 101/58 (72) 01/04/17 04:36 36.6 85 18 100/58 (72) 94 Room Air 01/04/17 04:00 Room Air 01/04/17 00:20 37.0 87 17 108/70 (83) 94 Room Air 01/03/17 19:54 Room Air 01/03/17 19:48 36.6 80 16 126/78 (94) 94 Room Air 01/03/17 17:30 Room Air 01/03/17 16:00 Room Air 01/03/17 15:20 36.6 80 18 114/77 (89) 99 Room Air 80 01/03/17 12:00 Room Air 01/03/17 11:08 36.7 47 20 121/79 (93) 96 Room Air 83 109/74 (86) 99 99/62 (74) Physical Exam Notes: General Appearance: WD/WN, no apparent distress Eyes: PERRL, EOMI ENT: hearing grossly normal, pharynx normal Neck: supple, no JVD Respiratory/Chest: + pertinent finding (+ deep colored erythema, edema, small vesicular lesions appear flat today, this extends down and cover the entire left breast and has been outlined, no extension past charles. +port in place, on room air, good breath sounds throughout with end expiratory wheeze in all hunter.) Cardiovascular: regular rate, rhythm, no edema, no murmur Abdomen: non tender, soft, + pertinent finding (slightly hypoactive bowel sounds) Extremities: non-tender, no pedal edema, no calf tenderness Neurologic/Psychiatric: alert, oriented x 3, mood brighter today Skin: normal color, warm/dry otherwise Laboratory Results Last 24 Hours Test 01/04/17 06:49 Prothrombin Time 33.4 SECONDS Prothromb Time International Ratio 3.0 Assessment and Plan 81 y/o F who was admitted for observation on 01/02 after a near syncopal episode earlier this AM. She recently was started on chemotherapy for R breast carcinoma Near syncope: - orthostatic hypoTN vs drug reaction vs decreased PO intake seem most likely etiology - continued diastolic orthostatic overnight are positive- continue to trend - will have pt ambulate today and determine if symptomatic. Consider florinef if dizzy and + orthostatics. -Echocardiogram completed: -- Conclusions -- * Technically limited study * 1. Normal LV size, borderline concentric LVH. * 2. Low normal LV function. LVEF 50-55%. Akinetic base to mid inferior and septal arana. * 3. Normal RV size, mildly reduced function. * 4. No significant valvular abnormalities. * 5. Compared with prior study on 04/29/2014: No significant changes. - carotid dopplers today IMPRESSION: 1. There is no sonographic evidence of hemodynamically significant stenosis in the right or left carotid arterial system. 2. Antegrade flow is shown in the vertebral arteries. 3. The cardiac pulsations appear irregular on several of the tracings. Correlate clinically and with EKG for evidence of arrhythmia. - Reduced metoprolol succinate 200mg to 150 mg starting today - no leukocytosis - Troponins negative x 2 Extravasation rxn: Lobular breast carcinoma ER OR positive HER-2/bryce negative and did have many lymph nodes positive - PET negative for metastasis - Follows with Dr. Monroy as outpt. - Mediport in Left subclavian last on 12/29 - Chemotherapy with Adriamycin and Cytoxan given IV every 3 weeks 4 sessions followed by weekly Taxol began on 12/31. - extravasation occurred but unknown which agent cause it. - was given Zinecard for 3 days and yesterday had a overall feeling weak episode and the patient was admitted for observation overnight. -Continue prednisone 10 mg daily started on 01/03 HTN: stable, - BP ok but orthostatic positive. Reduce metoprolol as above Hx of PE: pt states she was transitioning from lovenox to coumadin - INR 1.4 today- follow PT/INR with am labs - Continue lovenox bridge with 1.5 mg/kg, along with coumadin 4 mg daily Asthma: stable, continue home meds - Pt reports being on flovent, checked with her pharmacy and she uses 110 mcg as oupt 2 puff bid - will resume inhaler as she hasn't gotten this since being here and has end expiratory wheeze in all hunter on exam. GERD: stable, continue home meds DVT ppx: lovenox, coumadin CODE Status: Full code Disposition: From home, admitted on observation - d/c likely within 24 hours.
[2017-01-04] MEDS: FLUTICASONE HFA 110MCG INHALER INH SCH ×2 (12:49→21:05)
[2017-01-04] MEDS ORDERED: WARFARIN SOD 2 MG TAB PO SCH (16:00)
[2017-01-04] MEDS: ONDANSETRON INJ 2 MG/ML 2 ML VIAL IV PRN (17:45)
[2017-01-04] MEDS: RANITIDINE HCL 150 MG TAB PO SCH (21:05)
[2017-01-04] MEDS: ROSUVASTATIN CALCIUM 20 MG TAB PO SCH (21:05)
[2017-01-05 03:25] VITALS: BP_SYST 105; BP_SYST 115; BP_SYST 117; BP_DIAS 63; BP_DIAS 70; BP_DIAS 73; PULSE 113; PULSE 83; PULSE 95; TEMP 36.6; O2SAT 96
[2017-01-05 04:00] VITALS: O2SAT 96
[2017-01-05 07:13] VITALS: BP 117/66; PULSE 88; TEMP 36.8; O2SAT 93
[2017-01-05] MEDS: CALCIUM 600MG + VIT D 400 IU TAB PO SCH (08:18)
[2017-01-05] MEDS: PANTOprazole SOD 40 MG TAB PO SCH (08:18)
[2017-01-05] MEDS: FLUTICASONE HFA 110MCG INHALER INH SCH (08:19)
[2017-01-05] MEDS: LISINOPRIL 10 MG TAB PO SCH (08:19)
[2017-01-05] MEDS: ASPIRIN 81 MG ECTAB PO SCH (08:19)
[2017-01-05] MEDS ORDERED: METOPROLOL SUCC 50MG EXT REL TAB PO SCH (09:00)
--- NOTE | 2017-01-05 09:11 | HEME/ONC PROGRESS NOTE ---
DATE: 01/05/2017 DATE: 01/05/2017 DIAGNOSES: 1. Near syncopal episode. 2. Right breast cancer. 3. Chemotherapy extravasation. 4. Orthostatic hypotension. SUBJECTIVE: Gena was seen and examined at bedside today. There is still a fair amount of bruising and erythema around the extravasation site in the upper left chest wall. Mild discomfort but patient seems to be progressing satisfactorily. Review of the hospitalist notes indicate that Gena is ready for discharge. I agree with this assessment. She is not complaining of nausea and tolerating her diet. She has moved her bowels within the last 24 hours. Ambulating ad ila. PHYSICAL EXAMINATION: GENERAL: She is in no acute distress. VITAL SIGNS: Temperature 36.8, pulse 88, respirations 20, blood pressure 117/66. SKIN: Again, surrounding erythema and ecchymosis in the upper left chest wall. HEAD, EYES, EARS, NOSE, AND THROAT: Oral mucosa without erythema or ulceration. NECK: Supple. HEART: Regular rate and rhythm. LUNGS: Clear to auscultation. ABDOMEN: Soft, nontender, nondistended. EXTREMITIES: No clubbing, cyanosis or edema. NEUROLOGIC EXAMINATION: Grossly intact. IMPRESSION: 1. Near syncope. 2. Orthostatic hypotension. 3. Chemotherapy extravasation. 4. Right breast cancer. PLAN: Gena is in good spirits today. Her physical exam this morning was otherwise unremarkable except for the cutaneous findings described. I agree with the primary service that Gena is prepared for discharge. She is scheduled to return prior to cycle #2. We will see her at that time. I have nothing further to add at this juncture. I look forward to seeing her prior to cycle #2. Thank you very much for assisting us in the care of this very pleasant patient.
[2017-01-05] MEDS ORDERED: TPRSR/100 PO (09:25)
--- NOTE | 2017-01-05 09:30 | Discharge Instructions ---
Discharge Instructions Date of Service Jan 05, 2017. Admission Reason for Admission: Near Syncope Discharge Discharge Diagnosis / Problem: Weakness, nausea, near syncope Discharge Goals Goal(s): Decrease discomfort, Improve function, Increase independence, Improve disease control Activity Recommendations Activity Limitations: resume your previous activity Lifting Limitations: no more than 25 pounds, gradually increase as tolerated Exercise/Sports Limitations: rest today, gradually increase as tolerated May Resume Sexual Activity: when tolerated Shower/Bathe: no limitations Driving or Machine Use: resume 1 day after discharge . Instructions / Follow-Up Instructions / Follow-Up You were admitted to [facility] with near syncope and diagnosed with weakness, fatigue , nausea secondary to chemotherapy agent and extravasation of chemotherapeutics surrounding mediport. During your stay here you were treated with Intravenous fluids, supportive care and metoprolol succinated was decreased due to low blood pressures when standing. Imaging studies which were completed include Echocardiogram of the heart, and were normal. Medications: Continue taking prednisone 10 mg daily - discuss tapering this medication with Dr. Monroy/Dr. Bardales with Hematology/oncology at your follow up appointment. Metoprolol succinated has been reduced to 100 mg daily. Check your BP twice daily until seen by your PCP Continue taking coumadin as directed. Your INR at time of discharge was Appointments: Follow up with your Primary Care Provider within 1 week. Follow up with hematology/oncology within 1 week. Resume your chemotherapy based on their recommendations. Current Hospital Diet Patient's current hospital diet: Diabetes Type 2 Diet Discharge Diet Recommended Diet: Diabetes Type 2 Diet Pending Studies Studies pending at discharge: no Laboratory Results Hemoglobin A1c Test 12/28/16 10:00 Range/Units Estimated Average Glucose 120 mg/dl Hemoglobin A1c 5.8 H 4.5-5.6 % Lipid Panel Test 12/28/16 10:00 Range/Units Triglycerides Level 147 0-150 mg/dl Cholesterol Level 154 0-200 mg/dl HDL Cholesterol 65 mg/dl Cholesterol/HDL Ratio 2.4 LDL Cholesterol, Calculated 60 mg/dl Medical Emergencies . Who to Call and When: Medical Emergencies: If at any time you feel your situation is an emergency, please call 911 immediately. . Non-Emergent Contact Non-Emergency issues call your: Primary Care Provider, Oncologist Call Non-Emergent contact if: you have a fever, temperature is above 100.5, your pain is not controlled, your pain is worsening, your pain is unusual for you, your pain is concerning you, you have any medication questions other concerns with your health. Call 911 or go directly to the Emergency Department if you experience any of the following: Chest pain, chest tightness, shortness of breath, abdominal pain , lightheadedness, dizziness, gastrointestinal bleeding, or have any other concerns regarding your health. . . "Provider Documentation" section prepared by Gloria Salcedo. . VTE Core Measure Inpt VTE Proph given/why not?: Other Anticoagulation, T.E.D. Stockings, SCD's
[2017-01-05 10:23] LABS: PROTHROMBIN TIME (PATIENT) 22.3 SECONDS (9.0-12.0)
--- NOTE | 2017-01-05 13:39 | Discharge Summary ---
Discharge Summary Date of Service Jan 05, 2017. 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 TECHNIQUE: Portable upright AP view of the chest was obtained. COMPARISON: 12/30/[address] from 12/31/2016. FINDINGS: Median sternotomy wires intact. Left subclavian Mediport terminates in the mid SVC. Atherosclerosis of the aortic arch. Cardiac silhouette remains enlarged. Nodular opacities seen on CT are not well appreciated on radiograph. Eventration of the left hemidiaphragm noted. No large effusion or pneumothorax. Degenerative changes of the thoracic spine. Upper abdomen normal. IMPRESSION: 1. Nodular opacities seen on recent chest CT are not well appreciated on radiograph. Electronically signed by: Justin Lantigua M.D. 01/02/2017 6:04 PM Dictated Date/Time: 01/02/2017 6:00 PM The status of this report is Signed. ULTRASOUND OF THE CAROTID ARTERIES CLINICAL HISTORY: Syncope. COMPARISON STUDY: No priors. TECHNIQUE: Real-time, grayscale, and color Doppler sonography of the carotid arteries is performed. Images are reviewed in the transverse and longitudinal planes. FINDINGS: Blood pressures were not assessed due to previous mastectomy and postoperative change. The carotid arteries are patent bilaterally and demonstrate antegrade flow. There is moderate echogenic shadowing atherosclerotic plaque seen in the carotid bulbs bilaterally, right greater than left. The cardiac tracings appear irregular on several of the provided images. Normal doppler arterial waveforms are seen throughout. Velocity measurements are listed below. Common carotid peak systolic velocity (cm/sec): RIGHT: 98 LEFT: 109 ICA proximal peak systolic velocity (cm/sec): RIGHT: 118 LEFT: 71 ICA mid peak systolic velocity (cm/sec): RIGHT: 116 LEFT: 92 ICA distal peak systolic velocity (cm/sec): RIGHT: 124 LEFT: 94 ICA/CC peak systolic ratio: RIGHT: 1.3 LEFT: 0.9 Antegrade flow was shown in the vertebral arteries. The external carotid arteries are patent. IMPRESSION: 1. There is no sonographic evidence of hemodynamically significant stenosis in the right or left carotid arterial system. 2. Antegrade flow is shown in the vertebral arteries. 3. The cardiac pulsations appear irregular on several of the tracings. Correlate clinically and with EKG for evidence of arrhythmia. Electronically signed by: Kodi Ro M.D. 01/03/2017 1:50 PM Dictated Date/Time: 01/03/2017 1:47 PM The status of this report is Signed. Medication Reconciliation New Medications: Polyethylene Glycol 3350 (Miralax) 1 Pow Pow 17 GM PO DAILY PRN for Constipation for 30 Days, #30 DOSE Prednisone (Prednisone) 10 Mg Tab 10 MG PO DAILY for 5 Days, #5 TAB Changed Medications: Metoprolol Succinate (Metoprolol Succinate ER) 100 Mg Tabcr 100 MG PO DAILY for 30 Days, #30 TAB (Changed from: Metoprolol Succinate ( Toprolxl (Toprol-Xl) 200 Mg Tabcr 200 Mg PO QAM Ref 0) Continued Medications: Albuterol Hfa (Ventolin Hfa) 200 Puffs/22754 Mcg Aers 2-4 PUFFS INH Q6H PRN for Shortness of Breath, #1 INHALER Albuterol Sulfate (Proair Respiclick) 108 Mcg/Act Aer 2 SPRAY INH Q4 PRN for SOB/Wheezing Aspirin (Aspirin) 81 Mg Tab 81 MG PO QAM Calcium Carbonate-Vitamin D (Calcium + D) 1 Tab Tab 1 TAB PO BID HAS NOT HAD FOR ONE WEEK NEEDS TO CUTTER WET MACHINE MORE Lisinopril (Zestril) 10 Mg Tab 10 MG PO QAM, 0 Refills Pantoprazole (Protonix) 40 Mg Tab 40 MG PO QAM, #30 0 Refills Ranitidine (Zantac) 300 Mg Tab 150 MG PO HS, 0 Refills Rosuvastatin Calcium (Crestor) 40 Mg Tab 20 MG PO HS, TAB Warfarin Sod (Jantoven) 2 Mg Tab 4 MG PO UD DAILY, TAB DOSAGE TO BE ADJUSTED BY BASED ON REGULAR INR SCREENING. Discharge Exam The patient was seen and examined this morning. Pt reports she is feeling well today, more energy, slept well overnight, and her swelling in the L breast seems to be a little improved. Discussion was held regarding possible change of port site, but she informs me that Dr. Clemons has seen her and has decided the port will stay in that same location. Her breathing has improved with flovent inh back on board. She is tolerating an oral diet without difficulty, had a BM yesterday. PE: General Appearance: WD/WN, no apparent distress Eyes: PERRL, EOMI ENT: hearing grossly normal, pharynx normal Neck: supple, no JVD Respiratory/Chest: + pertinent finding (+ deep colored erythema, edema, small vesicular lesions appear flat today, this extends down and cover the entire left breast and has been outlined, no extension past charles. +port in place, on room air, good breath sounds throughout, no expiratory wheeze.) Cardiovascular: regular rate, rhythm, no edema, no murmur Abdomen: non tender, soft, + NABS Extremities: non-tender, no pedal edema, no calf tenderness Neurologic/Psychiatric: alert, oriented x 3, mood brighter today Skin: normal color, warm/dry otherwise Review of Systems: Constitutional: No fever, No chills, No sweats Eyes: No redness, No diplopia ENT: No trouble swallowing Respiratory: No sputum, No shortness of breath, No dyspnea on exertion Cardiovascular: + problem reported (Left breast as per HPI), No chest pain, No orthopnea, No palpitations Abdomen: No pain, No nausea, No vomiting, No diarrhea, No constipation Musculoskeletal: No joint pain, No swelling Genitourinary - Female: No dysuria Neurologic: No memory loss, No numbness/tingling Hospital Course History of Present Illness Source: patient 81 y/o F who was sent to the ED from the 4th floor where she was receiving an outpt dosing of antidote for a chemo extravasation rxn. Pt informed nursing that she had an episode of near syncope earlier this AM. She got up to go to the bathroom this morning and became extremely hot and diaphoretic. She felt that she needed to go back to bed but when she turned to do so she became suddenly lightheaded and fell. She denies losing consciousness or hitting her head. No injury from the fall other than minor knee pain. Pt then called her daughter who got to her home in 15 minutes. She felt fine just prior to this event. She has chest pain related to the extravasation rxn but no new pain. She and family state that the redness in her chest is much worse than it was earlier today. Pt has never had any sort of pre-syncope or full syncope in the past. At present, pt feels fine other than burning related to the extravasation rxn. Pt states that she has been undergoing chemotherapy tx with doxyrubicin when the needle slipped out of her port causing the drug to infiltrate into the skin of her L chest and breast on 12/31. She was given an antidote for this on 12/31 and then has come to the 4th floor yesterday and today for antidote doses 2 and 3, which will complete the recommended course. Dr. Baptiste was contacted by the ED physician and informed that pt's rash is much worse that it was earlier today. He states that this is not an unusual response per his research and that she should not be given abx. Daughter states that she is very concerned that no one from hem/onc has come to the ED to check on the pt given the worsening skin findings. She is very upset that this extravasation rxn happened in the first place. Pt denies fever, SOB, abd pain, n/v/c/d, LE pain or swelling. She states that all she has had to eat today was a banana before her antidote tx. She does get mild nausea at times, but has none at present. Pt states she was on lovenox for her PE and is transitioning to coumadin. She took 4mg yesterday and is to take 4mg again tonight and have labs checked tomorrow. Physical Exam Vital Signs Date Time Temp Pulse Resp B/P (MAP) Pulse Ox O2 Delivery O2 Flow Rate FiO2 01/02/17 17:51 70 110/78 92 Room Air 70 121/56 84 104/57 01/02/17 16:06 36.6 66 18 106/58 95 Room Air General Appearance: WD/WN, no apparent distress Head: normocephalic, atraumatic Eyes: normal inspection, EOMI ENT: hearing grossly normal Neck: supple Respiratory/Chest: normal breath sounds, no respiratory distress Cardiovascular: regular rate, rhythm, no edema Abdomen/GI: non tender, soft Extremities/Musculoskelatal: no calf tenderness, no pedal edema Neurologic/Psych: alert, normal mood/affect, oriented x 3 Skin: warm/dry, + pertinent finding (L chest and breast with bright red rash ) Hospital Course: 81 y/o F who was admitted for observation on 01/02 after a near syncopal episode earlier this AM. She recently was started on chemotherapy for R breast carcinoma Near syncope: - orthostatic hypoTN vs drug reaction vs decreased PO intake seem most likely etiology - systolic and diastolic orthostatics were initially positive-but improved with the reduction of metoprolol succinate to 100 mg PO daily. Pt was able to ambulate without symptoms prior to discharge. -Echocardiogram completed: -- Conclusions -- * Technically limited study * 1. Normal LV size, borderline concentric LVH. * 2. Low normal LV function. LVEF 50-55%. Akinetic base to mid inferior and septal arana. * 3. Normal RV size, mildly reduced function. * 4. No significant valvular abnormalities. * 5. Compared with prior study on 04/29/2014: No significant changes. - carotid dopplers today IMPRESSION: 1. There is no sonographic evidence of hemodynamically significant stenosis in the right or left carotid arterial system. 2. Antegrade flow is shown in the vertebral arteries. 3. The cardiac pulsations appear irregular on several of the tracings. Correlate clinically and with EKG for evidence of arrhythmia. - Reduced metoprolol succinate 200mg to 150 mg starting today - no leukocytosis - Troponins negative x 2 Extravasation rxn: Lobular breast carcinoma ER ID positive HER-2/bryce negative and did have many lymph nodes positive - PET negative for metastasis - Mediport in Left subclavian placed on 12/29 - Chemotherapy with Adriamycin and Cytoxan given IV every 3 weeks 4 sessions followed by weekly Taxol began on 12/31. - extravasation occurred but unknown which agent cause it. - was given Zinecard for 3 days and yesterday had a overall feeling weak episode and the patient was admitted for observation -Continue prednisone 10 mg daily started on 01/03- given a 5day prescription - can follow with heme onc and determine when/how to taper per Dr. Bardales and Dr. Monroy - F/u in office within 1 week as previously discharged. HTN: stable, - Reduced metoprolol succinate to 100 mg PO daily as above, BP remained stable. Hx of PE: pt states she was transitioning from lovenox to coumadin - INR 2.0 at time of discharge- pt has Coumadin 2 mg tablets and is instructed to take as directed per her PCP. She can take 4 mg tonight and have INR rechecked per PCP. - Off lovenox bridge. Asthma: stable, continue home meds - Pt reports being on flovent, checked with her pharmacy and she uses 110 mcg as oupt 2 puff bid - improved with resumed inhaler therapy - Breath sounds are improved. GERD: stable, continue home meds DVT ppx: lovenox, coumadin CODE Status: Full code Disposition: From home, admitted on observation - d/c likely within 24 hours. Total Time Spent: Greater than 30 minutes This includes examination of the patient, discharge planning, medication reconciliation, and communication with other providers. Discharge Instructions Please refer to the electronic Patient Visit Report (Discharge Instructions) for additional information. Follow-Up Follow up with your Primary Care Provider within 1 week. Follow up with hematology/oncology within 1 week. Resume your chemotherapy based on their recommendations. Additional Copies To Lucian Noe M.D.
== END 2017-01-05 11:27 | disposition home or self-care (01) ==
LOC: C.EDB 15:59 → C.2T 19:09 → ENRESERV 19:27 → UNDODISOB 01-04 15:20
PROVIDERS: ADMIT Family Medicine; ATTEND Family Medicine
DX: I95.1 Orthostatic hypotension (principal); R55 Syncope and collapse; T80.810A Extravasation of vesicant antineoplastic chemotherapy, initial encounter; K21.9 Gastro-esophageal reflux disease without esophagitis; J45.909 Unspecified asthma, uncomplicated; I10 Essential (primary) hypertension; C50.911 Malignant neoplasm of unspecified site of right female breast; I25.2 Old myocardial infarction; Z17.0 Estrogen receptor positive status [ER+]; Z87.891 Personal history of nicotine dependence; Z79.82 Long term (current) use of aspirin; Z79.01 Long term (current) use of anticoagulants; Z86.711 Personal history of pulmonary embolism; Z96.659 Presence of unspecified artificial knee joint

== ENCOUNTER → 2017-02-07 | Outpatient (CLI) | payer MEDICARE ==
[~2017-02-07] MED LIST changes: +ACET1TAB84 PO; -ALBU18002 INH; +FLUT1AER5 INH; +METO-157 PO; +METO100T44 PO; -METO1TAB71 PO; +ONDA8TAB6 PO; +OPTIRAY 320 IV PRN; +OXYC-57 PO; +SULF800T23 PO; +WARF2TAB PO; -WARF2TAB8 PO
--- NOTE | 2017-02-07 12:40 | DIAGNOSTIC IMAGING REPORT ---
ABD/PELVIS COMBO CLINICAL HISTORY: 81 years-old Female presenting with gross hematuria, no history of stones, currently undergoing chemotherapy and radiation. TECHNIQUE: Multidetector CT of the abdomen and pelvis was performed before and after the administration of intravenous contrast. IV contrast: 94 mL of Optiray 320. A dose lowering technique was used consistent with the principles of ALARA (as low as reasonably achievable). COMPARISON: 11/09/2005. CT DOSE (mGy.cm): The estimated cumulative dose is 1537.80 mGycm. FINDINGS: [employer] topogram: Median sternotomy wires. Cholecystectomy clips. Lung bases: Lung bases clear. Coronary artery calcification. Normal heart size. No pericardial or pleural effusion. Diffuse infiltration of the left breast with skin thickening, likely posttreatment/post radiation change. Liver: Normal morphology. Density consistent with hepatic steatosis. No focal lesion. Minimal hypodensity along the inferior aspect of the fissure for the ligamentum teres, likely perfusional variability or focal fat. Round fluid density nodule inferior to the left hepatic lobe unchanged since 2005, consistent with benign etiology, possibly a mesenteric cyst. Patent hepatic vasculature. Biliary: Mild biliary ductal prominence likely a reservoir effect in the post cholecystectomy state. Gallbladder surgically absent. Pancreas: Normal. Spleen: Normal. Adrenal glands: Normal. Kidneys and ureters: No nephrolithiasis. Normal excretion of contrast from the bilateral kidneys without evidence of a filling defect within the collecting systems. No hydronephrosis. No parenchymal lesion. Normal ureters. Bladder: Allowing for underdistention, mild bladder wall thickening suggested. Pelvic organs: Uterus and ovaries normal. Bowel: Diverticulosis of the sigmoid colon. Normal appendix. No bowel obstruction. Peritoneal cavity: No free fluid or intraperitoneal gas. Lymph nodes: No enlarged lymph nodes in the abdomen or pelvis. Vasculature: Atherosclerosis of the normal caliber abdominal aorta. IVC patent. Abdominal wall: Multifocal sites of nodular infiltration, many containing gas with overlying skin thickening in the lower abdominal wall likely representing injection granulomas. Musculoskeletal: Degenerative changes of the spine. Focal sclerosis in the lateral left ninth rib, which was not present in 2006 (series 5 image 73). Osteopenia. IMPRESSION: 1. Post treatment/post radiation changes of the left breast. 2. Multifocal nodular infiltration with gas in the anterior abdominal wall with associated skin thickening, most likely injection granulomas. Correlate with history of medication administration. 3. No nephrolithiasis or renal mass. Normal ureters. 4. Allowing for underdistention of the bladder, suggestion of bladder wall thickening. This could suggest cystitis. 5. Indeterminate sclerotic lesion in the lateral left ninth rib, not present in 2006. If there is clinical concern for metastatic osseous involvement, nuclear medicine bone scan could be considered. 6. Osteopenia. The report will be called/faxed according to standard departmental protocol. Electronically signed by: Justin Lantigua M.D. 02/07/2017 12:39 PM Dictated Date/Time: 02/07/2017 12:28 PM
== END | disposition home or self-care (01) ==
LOC: C.CTS 11:28
PROVIDERS: ATTEND Urology
DX: R31.0 Gross hematuria (principal); Z92.3 Personal history of irradiation; R93.5 Abnormal findings on diagnostic imaging of other abdominal regions, including retroperitoneum; R93.41 Abnormal radiologic findings on diagnostic imaging of renal pelvis, ureter, or bladder; R93.7 Abnormal findings on diagnostic imaging of other parts of musculoskeletal system; M85.88 Other specified disorders of bone density and structure, other site

== ENCOUNTER → 2017-02-09 | Day surgery (SDC) | payer MEDICARE ==
[2017-01-20 15:35] VITALS: BMI 36.0
[2017-01-20 15:54] VITALS: BMI 36.0
[~2017-02-09] VITALS: Ht 152.4 cm; Wt 79.7 kg
[~2017-02-09] MED LIST changes: +ACETAMINOPHEN 325 MG TAB ONE; +ATROPINE SULFATE 0.1 MG/ML 5ML SYR IV PRN; +BACITRACIN OINT 15 GM TUBE ONE; +BUPIVACAINE/EPINEPHRINE 0.5% MPF 1:200,000 30 ML VIAL ONE; +CEFAZOLIN SOD 1 GM VIAL ONE; +CONRAY 60% 50 ML VIAL ONE; +EpHEDrine SULFATE INJ 50 MG/ML AMP IV PRN; +FENTANYL CITRATE INJ 50 MCG/1 ML 2 ML VIAL IV PRN; +FENTANYL CITRATE INJ 50 MCG/1 ML 2 ML VIAL ONE; +HEPARIN SOD (PORCINE) 1000 UNIT/ML 10 ML VIAL ONE; +HYDROCODONE/ACETAMOPHEN 5/325MG TAB PO PRN; +HYDROmorphone INJ 1 MG/ML SYR IV PRN; +LABETALOL HCL IV 5 MG/ML 20ML IV PRN; +LACTATED RINGER'S 1000ML 1,000 ML IV SCH; +LIDOCAINE HCL 2% 2 ML VIAL (20MG/ML) ONE; +MEPERIDINE HCL 25 MG/ML CARP IV PRN; +MIDAZOLAM HCL 1 MG/ML 2ML VIAL ONE; +NURSING VERBAL MED ORDER ONE; +ONDANSETRON INJ 2 MG/ML 2 ML VIAL IV PRN; -OPTIRAY 320 IV PRN; +PHENYLEPHRINE 100MCG/ML 5ML SYR ONE; +PROPOFOL IV EMULSION 10 MG/ML 20 ML VIAL IV ONE; +SODIUM CHLORIDE 0.9% 1000ML 1,000 ML IV SCH
[2017-02-09 08:51] VITALS: BP 118/84; PULSE 101; TEMP 36.9; O2SAT 100; Ht 152.4 cm; Wt 79.7 kg
[2017-02-09 09:29] LABS: HEMATOCRIT 36.5 % (37-47); MEAN CELL VOLUME 90.3 fL (80-100); MEAN CORPUSCULAR HEMOGLOBIN 28.5 pg (25-34); MEAN PLATELET VOLUME 9.3 fL (7.4-10.4); PLATELET COUNT 263 K/uL (130-400); RED BLOOD COUNT 4.04 M/uL (4.2-5.4); WHITE BLOOD COUNT 8.25 K/uL (4.8-10.8)
[2017-02-09 09:34] LABS: MEAN CORPUSCULAR HGB CONC 31.5 g/dl (32-36)
[2017-02-09 09:39] LABS: PARTIAL THROMBOPLASTIN RATIO 0.9; PROTHROMBIN TIME (PATIENT) 10.9 SECONDS (9.0-12.0)
--- NOTE | 2017-02-09 10:19 | History & Physical Bridge Note ---
H&P Re-Evaluation Bridge Note: I have examined the patient, reviewed the History & Physical and in the interval since the performance of the History & Physical I have noted the following changes of clinical significance: No changes noted as above. breast looking much better. discussed options and risks ( bleeding/infection/infection of port requiring explant/dvt/pe/pneumothorax/hemothorax/ etc... we will check the port, if need be will plan to exchange and/or place new port at new location. questions answered. patient agreeable.
--- NOTE | 2017-02-09 11:27 | [facility] Operative Report ---
Operative Report Operative Date Feb 09, 2017. Pre-Operative Diagnosis Malfunctioning Port Post-Operative Diagnosis Normal Functioning Port Procedure(s) Performed Port Check Using Fluoroscopy Surgeon Dr. Emanuel Clemons Drawing Kiln Operator Surgeon(s) Gabrielle Huntley PA-C Estimated Blood Loss 10ml Findings functioning left subclavian port Specimens None per surgeon Anesthesia MAC Complication(s) None Disposition Recovery Room / PACU Description of Procedure After informed consent was obtained the patient was taken the operating room and placed in the supine position. Left arm was tucked in the upper chest wall was sterilely prepped and draped usual fashion. IV sedation was administered by anesthesia and titrated to effect. I took a pipe organ technician film and the port appeared to be in a good location underneath the incision. I used Marcaine to infiltrate the area around the prior incision and then opened it with a 15 blade scalpel. Once I opened up the incision I was able to readily visualize the port itself on the medial aspect of the incision. I accessed it with a Sellers needle and flushed with heparin and saline solution. I was then able to readily withdrawal dark venous blood without difficulty. I then connected it to a syringe with contrast dye. Under fluoroscopy I injected approximately 5 mL of contrast dye. The dye flowed easily through the port through the catheter and into the superior vena cava. There was no evidence of any kinking no evidence of any leak or malfunction of any kind. I then changed the syringes and re-flushed with heparin solution. I thoroughly irrigated the wound and close it in 2 layers using 2-0 Vicryl for deep layers and 3-0 Prolene in simple interrupted fashion for the skin. Antibiotic ointment sterile dressing were applied. Patient was awaken and transferred recovery in stable condition. I will note that I used a little bit of methylene blue dye to inject the skin right over top of the port so that they may have a guide for future access I attest to the content of the Intraoperative Record and any orders documented therein. Any exceptions are noted below.
--- NOTE | 2017-02-09 11:28 | Discharge Instructions ---
Discharge Instructions Date of Service Feb 09, 2017. Admission Reason for Admission: Port Catheter in Place Discharge Discharge Diagnosis / Problem: Port Catheter in Place Discharge Goals Goal(s): Decrease discomfort, Improve function Activity Recommendations Activity Limitations: as noted below Lifting Limitations: no more than 10 pounds Exercise/Sports Limitations: until after follow-up appointment May Resume Sexual Activity: after follow-up appointment Shower/Bathe: tomorrow Driving or Machine Use: resume 1 day after discharge . Instructions / Follow-Up Instructions / Follow-Up Please follow-up with Dr. Clemons in the office in 2 weeks. Please call the office at [phone] to make a follow-up appointment. Please call the office with any questions or concerns. Current Hospital Diet Patient's current hospital diet: Discharge Diet Recommended Diet: Regular Diet Procedures Procedures Performed: Port Check Using Fluoroscopy Pending Studies Studies pending at discharge: no Laboratory Results Hemoglobin A1c Test 12/28/16 10:00 Range/Units Estimated Average Glucose 120 mg/dl Hemoglobin A1c 5.8 H 4.5-5.6 % Lipid Panel Test 12/28/16 10:00 Range/Units Triglycerides Level 147 0-150 mg/dl Cholesterol Level 154 0-200 mg/dl HDL Cholesterol 65 mg/dl Cholesterol/HDL Ratio 2.4 LDL Cholesterol, Calculated 60 mg/dl Medical Emergencies . Who to Call and When: Medical Emergencies: If at any time you feel your situation is an emergency, please call 911 immediately. . Non-Emergent Contact Non-Emergency issues call your: Primary Care Provider, Surgeon Call Non-Emergent contact if: temperature is above 101.5, your pain is not controlled, wound has increased drainage, wound has increased redness . "Provider Documentation" section prepared by Gabrielle Huntley. . VTE Core Measure Inpt VTE Proph given/why not?: SCD's [place] Drug Monitoring Program Search Results: patient reviewed within database, no issues identified
--- NOTE | 2017-02-09 11:34 | DIAGNOSTIC IMAGING REPORT ---
CHEST 1 VIEW FRONTAL CLINICAL HISTORY: APORT CHECK Fluoroscopy time: 17 seconds. FINDINGS: There are 2 fluoroscopic spot images of the chest. Left subclavian Port-A-Cath with the tip terminating in the SVC. The tubing appears intact. No pneumothorax identified. IMPRESSION: Fluoroscopy provided for left subclavian Port-A-Cath placement. Electronically signed by: Jai Blair M.D. 02/09/2017 11:33 AM Dictated Date/Time: 02/09/2017 11:11 AM
[2017-02-09 11:40] VITALS: BP 128/61; PULSE 83; TEMP 36.5; O2SAT 95
--- NOTE | 2017-02-09 12:13 | Anesthesiology Progress Note ---
Anesthesia Post Op Note Date & Time Feb 09, 2017 at 12:13 Vital Signs Pain Intensity: 0 Vital Signs Past 12 Hours Date Time Temp Pulse Resp B/P (MAP) Pulse Ox O2 Delivery O2 Flow Rate FiO2 02/09/17 11:40 36.5 83 20 128/61 95 Room Air 02/09/17 11:30 84 16 128/79 96 Room Air 02/09/17 11:20 36.2 86 16 113/83 94 Room Air 02/09/17 08:51 36.9 101 20 118/84 (95) 100 Room Air Notes Mental Status: alert / awake / arousable, participated in evaluation Pt Amnestic to Procedure: Yes Nausea / Vomiting: adequately controlled Pain: adequately controlled Airway Patency, RR, SpO2: stable & adequate BP & HR: stable & adequate Hydration State: stable & adequate Anesthetic Complications: no major complications apparent
== END | disposition home or self-care (01) ==
LOC: C.ACU 08:22
PROVIDERS: ATTEND Surgery
DX: Z45.2 Encounter for adjustment and management of vascular access device (principal); J45.909 Unspecified asthma, uncomplicated; I10 Essential (primary) hypertension; I25.10 Atherosclerotic heart disease of native coronary artery without angina pectoris; J44.9 Chronic obstructive pulmonary disease, unspecified; E11.9 Type 2 diabetes mellitus without complications; E78.01 Familial hypercholesterolemia; Z86.718 Personal history of other venous thrombosis and embolism; Z95.1 Presence of aortocoronary bypass graft; Z90.49 Acquired absence of other specified parts of digestive tract; Z79.82 Long term (current) use of aspirin; Z79.01 Long term (current) use of anticoagulants; Z79.899 Other long term (current) drug therapy; Z90.10 Acquired absence of unspecified breast and nipple; Z87.891 Personal history of nicotine dependence; Z80.1 Family history of malignant neoplasm of trachea, bronchus and lung

== ENCOUNTER → 2017-02-16 | Outpatient (CLI) | payer MEDICARE ==
[~2017-02-16] MED LIST changes: -ACETAMINOPHEN 325 MG TAB ONE; -ATROPINE SULFATE 0.1 MG/ML 5ML SYR IV PRN; -BACITRACIN OINT 15 GM TUBE ONE; -BUPIVACAINE/EPINEPHRINE 0.5% MPF 1:200,000 30 ML VIAL ONE; -CEFAZOLIN SOD 1 GM VIAL ONE; -CONRAY 60% 50 ML VIAL ONE; -ENOX120I SQ; -EpHEDrine SULFATE INJ 50 MG/ML AMP IV PRN; -FENTANYL CITRATE INJ 50 MCG/1 ML 2 ML VIAL IV PRN; -FENTANYL CITRATE INJ 50 MCG/1 ML 2 ML VIAL ONE; -HEPARIN SOD (PORCINE) 1000 UNIT/ML 10 ML VIAL ONE; -HYDROCODONE/ACETAMOPHEN 5/325MG TAB PO PRN; -HYDROmorphone INJ 1 MG/ML SYR IV PRN; -LABETALOL HCL IV 5 MG/ML 20ML IV PRN; -LACTATED RINGER'S 1000ML 1,000 ML IV SCH; -LIDOCAINE HCL 2% 2 ML VIAL (20MG/ML) ONE; -MEPERIDINE HCL 25 MG/ML CARP IV PRN; -MIDAZOLAM HCL 1 MG/ML 2ML VIAL ONE; -NURSING VERBAL MED ORDER ONE; -ONDANSETRON INJ 2 MG/ML 2 ML VIAL IV PRN; -PHENYLEPHRINE 100MCG/ML 5ML SYR ONE; -PROPOFOL IV EMULSION 10 MG/ML 20 ML VIAL IV ONE; -SODIUM CHLORIDE 0.9% 1000ML 1,000 ML IV SCH
[2017-02-16 11:12] LABS: BASO % 1.4 %; BASO ABS # 0.09 K/uL (0-0.2); COMPLETE YES; EOS % 9.7 %; HEMATOCRIT 36.3 % (37-47); IG% 0.3 %; LYMPH % 11.3 %; LYMPH ABS # 0.72 K/uL (1.2-3.4); MEAN CORPUSCULAR HEMOGLOBIN 28.9 pg (25-34); MEAN CORPUSCULAR HGB CONC 32.5 g/dl (32-36); MEAN PLATELET VOLUME 9.5 fL (7.4-10.4); NEUT % 69.3 %; PLATELET COUNT 309 K/uL (130-400); RED BLOOD COUNT 4.08 M/uL (4.2-5.4); WHITE BLOOD COUNT 6.37 K/uL (4.8-10.8)
[2017-02-16 14:52] LABS: BLOOD UREA NITROGEN 14 mg/dl (7-18); CREATININE 1.24 mg/dl (0.60-1.20); GLUCOSE 135 mg/dl (70-99)
[2017-02-16 14:53] LABS: ALB/GLOB RATIO 0.8 (0.9-2); ALKALINE PHOSPHATASE 77 U/L (45-117); ALT/SGPT 19 U/L (12-78); AST/SGOT 23 U/L (15-37); BUN/CREATININE RATIO 11.4 (10-20); CALCIUM 8.7 mg/dl (8.5-10.1); CARBON DIOXIDE 23 mmol/L (21-32); CHLORIDE 104 mmol/L (98-107); POTASSIUM 4.8 mmol/L (3.5-5.1); SODIUM 135 mmol/L (136-145)
== END | disposition home or self-care (01) ==
LOC: C.LABBC 09:18
PROVIDERS: ATTEND Family Medicine
DX: C50.011 Malignant neoplasm of nipple and areola, right female breast (principal)

== ENCOUNTER → 2017-03-09 | Outpatient (CLI) | payer MEDICARE ==
[~2017-03-09] MED LIST changes: -SULF800T23 PO
--- NOTE | 2017-03-09 15:59 | MAMMOGRAPHY REPORT ---
ASPIRATION RIGHT BREAST: 03/09/2017 CLINICAL HISTORY: History of right breast cancer status post lumpectomy, with prior drainage of a pos tsurgical seroma in the right breast on 01/31/2017. The patient presents for a recurrent palpable lum p at the surgical bed. PATIENT CONSENT: The procedure and risks of ultrasound-guided aspiration were discussed in full with the patient. Both oral and written consents were obtained. PROCEDURE DESCRIPTION: Preprocedural ultrasound demonstrates a large multiloculated fluid collection at the surgical bed in the right upper outer quadrant, which is too large to accurately measure on ul trasound but measures at least 11.3 x 5.3 cm. Findings are compatible with a recurrent postsurgical seroma. With ultrasound guidance, aseptic technique, and 1% lidocaine as a local anesthetic, aspirat ion was performed of the fluid collection using an 18-gauge needle attached to a syringe. Approximat puja 260 mL of clear yellow fluid was aspirated and discarded. A thin residual fluid collection was s een after aspiration, with the largest pocket measuring approximately 5 mm. Direct pressure was appli ed to the site immediately post procedure and hemostasis was achieved. The patient tolerated the pro cedure without complication. COMPARISON: Comparison is made to exams dated: 01/31/2017 aspiration, 09/20/2016 ultrasound, 09/20/2016 mammogram, 09/09/2016 mammogram, 09/08/2015 mammogram, and 09/05/2014 mammogram - [facility]. IMPRESSION: ASPIRATION Ultrasound guided aspiration of the recurrent seroma at the surgical bed in the right upper outer jaime drant. Approximately 260 mL of clear yellow fluid was aspirated and discarded. Janna Loo M.D. ah/:03/09/2017 14:50:25 Field Kiln Burner: Dominiqeu EATON(Alejo)(M), [facility]
== END | disposition home or self-care (01) ==
LOC: C.MAMM 14:00
PROVIDERS: ATTEND Radiology Radiation Oncology
DX: L76.82 Other postprocedural complications of skin and subcutaneous tissue (principal)

== ENCOUNTER → 2017-03-22 | Outpatient (CLI) | payer MEDICARE ==
[~2017-03-22] MED LIST changes: +ACET-1256 PO; -OXYC-57 PO; +POLY335019 PO
--- NOTE | 2017-03-22 15:28 | MAMMOGRAPHY REPORT ---
ASPIRATION RIGHT BREAST: 03/22/2017 CLINICAL HISTORY: 81-year-old woman with a personal history of right breast cancer status post lumpec [place], currently undergoing radiation treatment, presents for seroma aspiration prior to radiation the rapy. COMPARISON: Comparison is made to exams dated: 03/09/2017 aspiration, 01/31/2017 aspiration, and 11/04 mammogram - [facility]. PATIENT CONSENT: After explaining the risks, benefits and alternatives of the procedure to the patien t, informed consent was obtained verbally and in writing. Specific risks include: bleeding, infection and puncture of adjacent structure. A time out was preformed in the right breast was agreed as the s ite for cyst aspiration. PROCEDURE DESCRIPTION: The predominantly anechoic fluid collection at the lumpectomy bed in the upper outer quadrant of the right breast was identified and targeted for fluid aspiration. 1% buffered lid ocaine was administered subcutaneously and intraparenchymally as local anesthesia. An 18 gauge needle was advanced to the site of the mass. Aspiration was preformed to near complete resolution of the po stsurgical seroma. Approximately 220 mL of clear, straw-colored fluid were aspirated and discarded. Hemostasis was achieved after a few minutes of manual compression. The patient left the department in satisfactory condition. IMPRESSION: ASPIRATION Status post aspiration to near complete resolution of a postsurgical seroma at the lumpectomy site in the right upper outer quadrant. Approximately 220 mL of clear, straw-colored fluid were aspirated a nd discarded. Chrissie Jackson M.D. ay/:03/22/2017 13:56:12 Shuttlecock Assembler: Mariella HARMON)(Sandy), [facility]
== END | disposition home or self-care (01) ==
LOC: C.MAMM 12:58
PROVIDERS: ATTEND Radiology Radiation Oncology
DX: L76.82 Other postprocedural complications of skin and subcutaneous tissue (principal); Z85.3 Personal history of malignant neoplasm of breast; Z08 Encounter for follow-up examination after completed treatment for malignant neoplasm

== ENCOUNTER → 2017-04-01 | Outpatient (CLI) | payer MEDICARE ==
[~2017-04-01] VITALS: Ht 152.4 cm; Wt 75.3 kg
[~2017-04-01] MED LIST changes: -ACET1TAB84 PO; +ANAS1TAB6 PO; +ARM1 PO; +CMD1 PO; +CMD2 PO; +DOXY100C76 PO; +DOXY1TAB6 PO; +DXY100 PO; +ENOX120I SQ; +FRS/40 PO; +LACT1TAB4 PO; +LCTX PO; +LEVO1TAB34 PO; +LSX40 PO; +TPRSR50 PO; +WARF1TAB PO
[2017-04-01 08:31] VITALS: Ht 152.4 cm; Wt 75.3 kg
--- NOTE | 2017-04-01 09:13 | PAT Medication Instructions ---
Service Date Apr 01, 2017. Current Home Medication List Acetaminophen (Tylenol), 0.5 TAB PO BID Albuterol Hfa (Ventolin Hfa), 1-2 PUFFS INH Q4-6H PRN for Shortness of Breath Aspirin (Aspirin), 81 MG PO QAM Calcium Carbonate-Vitamin D (Calcium + D), 1 TAB PO QAM Fluticasone Propionate (Inhala (Flovent Diskus), 2 PUFFS INH BID Lisinopril (Zestril), 10 MG PO QAM Metoclopramide (Reglan), 5 MG PO QPM PRN for Dyspepsia Metoprolol Succ (Toprol Xl) (Toprol-Xl ), 100 MG PO QAM Pantoprazole (Protonix), 40 MG PO QAM Polyethylene Glycol 3350 (Miralax), 17 GM PO prn Ranitidine (Zantac), 150 MG PO HS Rosuvastatin Calcium (Crestor), 40 MG PO HS Warfarin Sodium (Coumadin), 2 MG PO DAILY Medication Instructions For Your Scheduled Surgery - Check with surgeon and prescribing physician for instructions: Warfarin Sodium (Coumadin), 2 MG PO DAILY Aspirin (Aspirin), 81 MG PO QAM - Hold the following medications the morning of surgery: Calcium Carbonate-Vitamin D (Calcium + D), 1 TAB PO QAM Lisinopril (Zestril), 10 MG PO QAM Polyethylene Glycol 3350 (Miralax), 17 GM PO prn - Take the following medications the morning of surgery with a sip of water: Metoprolol Succ (Toprol Xl) (Toprol-Xl ), 100 MG PO QAM Pantoprazole (Protonix), 40 MG PO QAM Fluticasone Propionate (Inhala (Flovent Diskus), 2 PUFFS INH BID Acetaminophen (Tylenol), 0.5 TAB PO BID (okay to take up to 4 hours prior to surgery if needed) Albuterol Hfa (Ventolin Hfa), 1-2 PUFFS INH Q4-6H PRN for Shortness of Breath ( if needed) - Take the following medications as scheduled the night before surgery: Ranitidine (Zantac), 150 MG PO HS Rosuvastatin Calcium (Crestor), 40 MG PO HS Polyethylene Glycol 3350 (Miralax), 17 GM PO prn (if needed) Metoclopramide (Reglan), 5 MG PO QPM PRN for Dyspepsia (if needed) Fluticasone Propionate (Inhala (Flovent Diskus), 2 PUFFS INH BID Acetaminophen (Tylenol), 0.5 TAB PO BID Albuterol Hfa (Ventolin Hfa), 1-2 PUFFS INH Q4-6H PRN for Shortness of Breath ( if needed) If you have any questions please call us at [phone] or [phone] or [phone]
[2017-04-01 09:57] LABS: BASO % 0.3 %; BASO ABS # 0.02 K/uL (0-0.2); EOS ABS # 0.12 K/uL (0-0.5); HEMATOCRIT 32.4 % (37-47); HEMOGLOBIN 10.7 g/dL (12.0-16.0); IG# 0.01 K/uL (0.00-0.02); LYMPH % 3.7 %; LYMPH ABS # 0.22 K/uL (1.2-3.4); MEAN CELL VOLUME 86.9 fL (80-100); MEAN CORPUSCULAR HEMOGLOBIN 28.7 pg (25-34); MONO % 9.5 %; MONO ABS # 0.57 K/uL (0.11-0.59); NEUT % 84.3 %; NEUT ABS # 5.06 K/uL (1.4-6.5); PLATELET COUNT 165 K/uL (130-400); RED CELL DISTRIBUTION WIDTH SD 48.1 fL (36.4-46.3)
--- NOTE | 2017-04-01 10:39 | DIAGNOSTIC IMAGING REPORT ---
CHEST 2 VIEWS ROUTINE HISTORY: 81 years-old Female PAT preoperative exam. No acute chest complaints. COMPARISON: CT chest 01/13/2017, chest radiograph 01/02/2017 TECHNIQUE: PA and lateral views of the chest FINDINGS: Cardiomediastinal and hilar silhouettes are within normal limits. Prior median sternotomy. Surgical clips project over the left mediastinum. Coronary arterial stent graft noted. Left subclavian Eglhvt-l-Bmva catheter is noted with distal tip terminating in the region of the SVC. Unchanged subsegmental bibasilar opacities suggest areas of scarring/atelectasis. Previously noted nodules seen on chest CT are not well appreciated. Bones of the chest appear grossly intact. IMPRESSION: Mild bibasilar subsegmental atelectasis/scarring, left greater than right without acute process. The above report was generated using voice recognition software. It may contain grammatical, syntax or spelling errors. Electronically signed by: Darrell Romo M.D. 04/01/2017 10:37 AM Dictated Date/Time: 04/01/2017 10:36 AM
[2017-04-01 10:59] LABS: CALCIUM 8.4 mg/dl (8.5-10.1); CREATININE 0.96 mg/dl (0.60-1.20); POTASSIUM 3.8 mmol/L (3.5-5.1)
== END | disposition home or self-care (01) ==
LOC: C.LAB 08:00 → EDSTATUS 04-11 11:30
PROVIDERS: ATTEND Urology
DX: Z01.818 Encounter for other preprocedural examination (principal); Z01.810 Encounter for preprocedural cardiovascular examination; Z01.812 Encounter for preprocedural laboratory examination

== ENCOUNTER 2017-04-04 15:27 | Inpatient (IN) | payer MEDICARE, OTHER ==
[~2017-04-04] VITALS: Ht 152.4 cm; Wt 81.2 kg
[~2017-04-04 15:27] MED LIST changes: -ANAS1TAB6 PO; -ARM1 PO; -CMD1 PO; -CMD2 PO; -DOXY100C76 PO; -DOXY1TAB6 PO; -DXY100 PO; -ENOX120I SQ; -FRS/40 PO; -LACT1TAB4 PO; -LCTX PO; -LEVO1TAB34 PO; -LSX40 PO; -ONDA8TAB6 PO; -TPRSR50 PO; -WARF1TAB PO
[2017-04-04] MEDS ORDERED: SODIUM CHLORIDE 0.9% 1000ML 1,000 ML IV STA ×3 (15:47→17:59)
[2017-04-04] MEDS ORDERED: SODIUM CHLORIDE 0.9% 500ML 500 ML IV STA (15:47)
--- NOTE | 2017-04-04 16:18 | DIAGNOSTIC IMAGING REPORT ---
CHEST ONE VIEW PORTABLE CLINICAL HISTORY: Weakness. Sepsis. COMPARISON STUDY: Chest CT January 13, 2017 and chest radiograph April 01, 2017. FINDINGS: Left subclavian [id number], mediastinal wires and mediastinal surgical clips are noted. There is no pneumothorax or pleural effusion. Mild bibasilar opacities favor atelectasis. There is no consolidation to suggest pneumonia. Cardiomediastinal silhouette is stable. IMPRESSION: 1. Mild left basilar opacity suggestive of atelectasis. 2. No acute cardiopulmonary findings. Electronically signed by: Guzman Plata M.D. 04/04/2017 4:17 PM Dictated Date/Time: 04/04/2017 4:15 PM
[2017-04-04 16:27] LABS: HEMATOCRIT 32.5 % (37-47); HEMOGLOBIN 10.8 g/dL (12.0-16.0); MEAN CELL VOLUME 87.1 fL (80-100); MEAN CORPUSCULAR HGB CONC 33.2 g/dl (32-36); PLATELET COUNT 194 K/uL (130-400); RED CELL DISTRIBUTION WIDTH CV 15.6 % (11.5-14.5); RED CELL DISTRIBUTION WIDTH SD 50.3 fL (36.4-46.3); WHITE BLOOD COUNT 14.18 K/uL (4.8-10.8)
[2017-04-04 16:45] LABS: ALT/SGPT 84 U/L (12-78); BLOOD UREA NITROGEN 39 mg/dl (7-18); CALCIUM 8.3 mg/dl (8.5-10.1); CARBON DIOXIDE 25 mmol/L (21-32); CREATININE 2.33 mg/dl (0.60-1.20); GLUCOSE 95 mg/dl (70-99); LIPASE 94 U/L (73-393); SODIUM 130 mmol/L (136-145)
[2017-04-04 16:49] LABS: BASO % 0.3 %; BASO ABS # 0.04 K/uL (0-0.2); EOS % 5.6 %; EOS ABS # 0.79 K/uL (0-0.5); IG# 0.17 K/uL (0.00-0.02); LYMPH % 2.3 %; LYMPH ABS # 0.33 K/uL (1.2-3.4); MONO ABS # 0.29 K/uL (0.11-0.59); NEUT % 88.6 %; NEUT ABS # 12.56 K/uL (1.4-6.5)
[2017-04-04] MEDS ORDERED: DAPTOmycin IV 500 MG in SODIUM CHLORIDE 0.9% 50ML 50 ML IV STA (16:50)
[2017-04-04] MEDS ORDERED: CEFEPIME IV 1,000 MG in DEXTROSE 5% 100ML 100 ML IV STA (16:50)
[2017-04-04 16:54] LABS: ALKALINE PHOSPHATASE 182 U/L (45-117); AST/SGOT 72 U/L (15-37); CKMB 0.9 ng/ml (0.5-3.6); TOTAL PROTEIN 6.3 gm/dl (6.4-8.2)
[2017-04-04] MEDS ORDERED: ENOX120I SQ (17:00)
[2017-04-04 17:15] LABS: INFLUENZA B ANTIGEN Neg for Influ B (NEG)
[2017-04-04 17:35] LABS: INR > 8.0 (0.9-1.1)
[2017-04-04 17:36] LABS: PTT PATIENT 53.8 SECONDS (21.0-31.0)
--- NOTE | 2017-04-04 17:47 | EMERGENCY ROOM VISIT NOTE ---
History First contact with patient: 15:30 Chief Complaint: INFECTION Stated Complaint: SEPSIS History of Present Illness The patient is a 81 year old female who was sent up from the radiation oncology suite to the ED due to low blood pressure in the 50's systolically. Over the weekend she has been feeling weak, has had lack of appetite and has had fevers and chills. She has been seeing radiation oncology for metastatic breast cancer that has spread to her lymph nodes. She has an aport placed for chemo but in december she developed cellulitis of her A port and has had a wound vac placed. She has several radiation hagan on her chest during treatment for her cancer and she has not had chemo since December. Of note she is going for a polyp removal on April 11 with urology, she has had hematuria secondary to this polyp. Review of Systems CONSTITUTIONAL: Fatigue, loss of appetite ,Fevers and chills, no sweats or night sweats. No recent infections. No weight loss or weight gain. NEUROLOGIC: No headaches, dizziness or syncopal episodes. HEENT: No hearing or visual changes. No sinus or nasal issues. No mouth sores, thrush or oral lesions. CARDIOVASCULAR: No chest pain or palpitations. RESPIRATORY: No SOB, dyspnea, cough or hemoptysis. GASTROINTESTINAL: No nausea, vomiting, diarrhea, constipation, reflux, melena or hematochezia. GENITOURINARY: No dysuria, frequency, urgency, incontinence, She has had hematuria which is from a polyp SKIN: Chest with hagan from radiation HEMATOLOGIC: No bleeding or abnormal bruising Past Medical/Surgical History Medical Problems: (1) Anticoagulants,Lt,Current Use (2) Asthma, Unspecified, W (Acute) Exacerbation (3) Breast cancer (4) Hypertension Nos (5) Near syncope (6) Old Myocardial Infarct (7) Oth Pulmon Embolism/Infarct Surgical Problems: (1) History of knee replacement Cardiac bypass Cardiac stent Family History Patient reports no known family medical history. Social History Smoking Status: Former Smoker Alcohol Use: none Drug Use: none Marital Status: Housing Status: lives alone Occupation Status: retired Current/Historical Medications Scheduled Aspirin (Aspirin), 81 MG PO QAM Calcium Carbonate-Vitamin D (Calcium + D), 1 TAB PO BID Enoxaparin (Lovenox), 120 MG SQ DAILY Fluticasone Propionate (Inhala (Flovent Diskus), 2 PUFFS INH BID Lisinopril (Zestril), 10 MG PO QAM Metoprolol Succ (Toprol Xl) (Toprol-Xl ), 100 MG PO QAM Pantoprazole (Protonix), 40 MG PO QAM Polyethylene Glycol 3350 (Miralax), 17 GM PO prn Ranitidine (Zantac), 150 MG PO HS Rosuvastatin Calcium (Crestor), 40 MG PO HS Warfarin Sodium (Coumadin), 2 MG PO DAILY Scheduled PRN Albuterol Hfa (Ventolin Hfa), 1-2 PUFFS INH Q4-6H PRN for Shortness of Breath Metoclopramide (Reglan), 5 MG PO QPM PRN for Dyspepsia Allergies NKDA Physical Exam Vital Signs Date Time Temp Pulse Resp B/P (MAP) Pulse Ox O2 Delivery O2 Flow Rate FiO2 04/04/17 16:48 87 18 95 Room Air 04/04/17 16:26 86 04/04/17 15:58 95 Room Air 04/04/17 15:36 36.5 89 18 91/45 100 Room Air Physical Exam Gen: patient appears comfortable and in no acute distress HEENT: Head - normocephalic and atraumatic. Pupils are equal, round, and reactive to light. Extraocular eye muscles are intact and sclera are anicteric. Nose - moist nasal mucosa without discharge. Mouth - moist buccal mucosa. Oropharynx is nonerythematous and there is no tonsillar exudate or edema noted. Neck: Supple; no JVD, nuchal rigidity, cervical lymphadenopathy, or auscultated bruits. Heart: Regular rate and rhythm. There is a normal S1 and S2 with no murmurs, clicks, or gallops appreciated. Lungs: Clear to auscultation bilaterally with no wheezes, rales, or rhonchi. Abdomen: Soft, completely nontender, nondistended, with good bowel sounds. There are no palpable pulsatile masses or hepatosplenomegaly. There is no guarding, rigidity, or rebound noted. Extremities: No evidence of cyanosis, clubbing, or edema. There are easily palpable peripheral pulses. Skin: several superficial hagan scattered on her chest with clean white dressings covering them, without any purulent discharge or odour Medical Decision & Procedures Laboratory Results 04/04/17 16:10 Red Blood Count 3.73, Mean Corpuscular Volume 87.1, Mean Corpuscular Hemoglobin 29.0, Mean Corpuscular Hemoglobin Concent 33.2, Mean Platelet Volume 9.0, Neutrophils (%) (Auto) 88.6, Lymphocytes (%) (Auto) 2.3, Monocytes (%) (Auto) 2.0, Eosinophils (%) (Auto) 5.6, Basophils (%) (Auto) 0.3, Neutrophils # (Auto) 12.56, Lymphocytes # (Auto) 0.33, Monocytes # (Auto) 0.29, Eosinophils # (Auto) 0.79, Basophils # (Auto) 0.04 04/04/17 16:10 Test 04/04/17 16:10 04/04/17 16:19 04/04/17 16:20 04/04/17 17:03 White Blood Count 14.18 K/uL (4.8-10.8) Red Blood Count 3.73 M/uL (4.2-5.4) Hemoglobin 10.8 g/dL (12.0-16.0) Hematocrit 32.5 % (37-47) Mean Corpuscular Volume 87.1 fL (80-100) Mean Corpuscular Hemoglobin 29.0 pg (25-34) Mean Corpuscular Hemoglobin Concent 33.2 g/dl (32-36) Platelet Count 194 K/uL (130-400) Mean Platelet Volume 9.0 fL (7.4-10.4) Neutrophils (%) (Auto) 88.6 % Lymphocytes (%) (Auto) 2.3 % Monocytes (%) (Auto) 2.0 % Eosinophils (%) (Auto) 5.6 % Basophils (%) (Auto) 0.3 % Neutrophils # (Auto) 12.56 K/uL (1.4-6.5) Lymphocytes # (Auto) 0.33 K/uL (1.2-3.4) Monocytes # (Auto) 0.29 K/uL (0.11-0.59) Eosinophils # (Auto) 0.79 K/uL (0-0.5) Basophils # (Auto) 0.04 K/uL (0-0.2) RDW Standard Deviation 50.3 fL (36.4-46.3) RDW Coefficient of Variation 15.6 % (11.5-14.5) Immature Granulocyte % (Auto) 1.2 % Immature Granulocyte # (Auto) 0.17 K/uL (0.00-0.02) Toxic Granulation 1+ Toxic Vacuolation 1+ Anion Gap 9.0 mmol/L (3-11) Est Creatinine Clear Calc Drug Dose 18.0 ml/min Estimated GFR () 22.3 Estimated GFR (Non- 19.3 BUN/Creatinine Ratio 16.8 (10-20) Calcium Level 8.3 mg/dl (8.5-10.1) Magnesium Level 2.1 mg/dl (1.8-2.4) Total Bilirubin 0.4 mg/dl (0.2-1) Direct Bilirubin 0.1 mg/dl (0-0.2) Aspartate Amino Transf (AST/SGOT) 72 U/L (15-37) Alanine Aminotransferase (ALT/SGPT) 84 U/L (12-78) Alkaline Phosphatase 182 U/L (45-117) Total Creatine Kinase 77 U/L (26-192) Creatine Kinase MB 0.9 ng/ml (0.5-3.6) Creatine Kinase MB Ratio 1.2 (0-3.0) Troponin I < 0.015 ng/ml (0-0.045) Total Protein 6.3 gm/dl (6.4-8.2) Albumin 2.0 gm/dl (3.4-5.0) Lipase 94 U/L (73-393) Thyroid Stimulating Hormone (TSH) 1.840 uIu/ml (0.300-4.500) Bedside Lactic Acid Venous 2.81 mmol/L (0.90-1.70) Influenza Type A Antigen Neg for Influ A (NEG) Influenza Type B Antigen Neg for Influ B (NEG) Medications Administered Medications (Trade) Dose Ordered Sig/Sendy Route Start Time Stop Time Status Last Admin Dose Admin Sodium Chloride 500 ml @ 999 mls/hr Q31M STAT IV 04/04/17 15:47 04/04/17 16:17 DC 04/04/17 16:23 999 MLS/HR Sodium Chloride 1,000 ml @ 999 mls/hr Q1H1M STAT IV 04/04/17 16:50 04/04/17 17:50 04/04/17 17:05 999 MLS/HR ED Course 1535: patient was seen and examined by myself. full history and exam were obtained 1620: I discussed the case with the ED doctor and labs were ordered and IV fluids were started 1700: I reviewed the laboratory results and daptomycin and cefepime were started by the attending physician 1715: I discussed the case with the [facility] admitting physician who agreed to evaluate and manage the patient 1720: I informed the patient that she would need to be admitted to the hospital Medical Decision 81 year old female presented with lethargy, loss of appetite and low blood pressure. She was shown to have a WCC of 14 and lactic acid of 2.81. Her CXR was unremarkable. She continues to be hypotensive despite IVF resuscitation. She will need to be admitted to the hospital for a sepsis workup with the likely source of infection being cellulitis secondary to her hagan from radiation. She has been given 2L of Normal saline and has been started on IV antibiotics. She will be admitted to the hospital. Update: received note from the nurse that the patients INR is 8. I spoke to the pharmacist who suggested that the patient receive 5mg of PO vitamin K. I went to find the admitting hospitalist and updated them of this. They agreed to continue management of the patients elevated INR. Impression Primary Impression: Sepsis Departure Information Dispostion Admitted as an inpatient Condition FAIR Referrals Pro,Lucian Sawyer M.D. (PCP) Patient Instructions My [facility] Problem Qualifiers Primary Impression: Sepsis Sepsis type: sepsis due to unspecified organism Qualified Codes: A41.9 - Sepsis, unspecified organism
[2017-04-04] MEDS ORDERED: PHYTONADIONE 5 MG TAB PO STA (18:17)
[2017-04-04] MEDS ORDERED: ACETAMINOPHEN 325 MG TAB PO PRN (18:30)
[2017-04-04] MEDS ORDERED: ALUMINUM/MAGNESIUM/SIMETH (MAALOX MAX) 30 ML UDC PO PRN (18:30)
[2017-04-04] MEDS ORDERED: MAGNESIUM HYDROXIDE SUSP 30 ML UDC PO PRN (18:30)
[2017-04-04] MEDS ORDERED: POLYETHYLENE (MIRALAX) 17 GM PACK PO PRN (18:30)
[2017-04-04] MEDS ORDERED: ALBUTEROL HFA 8 GM INHALER INH PRN (18:30)
[2017-04-04] MEDS ORDERED: VANCOMYCIN INJ 2,000 MG in SODIUM CHLORIDE 0.9% 500ML 500 ML IV STA (18:49)
[2017-04-04] MEDS ORDERED: VANCOMYCIN CONSULT ACTIVE PRN (19:00)
--- NOTE | 2017-04-04 19:22 | History and Physical ---
History & Physical Date & Time of Service: Apr 04, 2017 at 18:32 Chief Complaint: Sepsis Primary Care Physician: Lucian Noe M.D. History of Present Illness Source: patient, family, clinic records, hospital records This is a 81 y/o female with a history of right breast lobular carcinoma, HTN, HLD, CAD, COPD, CKD stage II-III, diet controlled DM II, h/o multiple PE's on chronic anticoagulation and GERD who presented to the ED on 04/04 with hypotension and malaise. The patient states that she has been feeling generally unwell, weak and fatigued for the last few days. She has had less appetite than normal and has been barely eating. Last night she was experiencing chills but did not check her temperature. She complains of a productive cough with thin, white mucus but denies any wheezing or shortness of breath. She notes some brief, intermittent periods of confusion in the last 3 days. She notes she has not been urinating much but otherwise denies urinary symptoms. The patient undergoes radiation for her breast cancer. She had previously been receiving chemo but the needle from her port had slipped injecting doxorubicin into her skin and causing a large necrotic wound which is now being treated with a wound vac. 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 She had attempted to complete a radiation session afterwards, but her BP dropped to the 50s systolically, so she was sent to the ED for evaluation. The patient denies fevers, sweats, chest pain, palpitations, claudication, wheezing, shortness of breath, nausea, vomiting, abdominal pain, dysuria, hematuria, urinary retention, paralysis, weakness, numbness and tingling. Past Medical/Surgical History Medical Problems: (1) Anticoagulants,Lt,Current Use Status: Chronic (2) Asthma, Unspecified, W (Acute) Exacerbation Status: Chronic (3) Hypertension Nos Status: Chronic (4) Old Myocardial Infarct Status: Resolved (5) Oth Pulmon Embolism/Infarct Status: Resolved HLD CAD COPD CKD stage II-III DM II GERD Family History Cancer Diabetes mellitus Myocardial infarction Social History Smoking Status: Former Smoker (quit 1994) Smokeless Tobacco Use: No Alcohol Use: none Drug Use: none Marital Status: Housing status: lives alone Occupational Status: retired Immunizations History of Influenza Vaccine: N/A History of Tetanus Vaccine?: Yes History of Pneumococcal: Yes History of Hepatitis B Vaccine: No Multi-Drug Resistant Organisms History of MDRO: No Allergies Coded Allergies: Nitroglycerin (Verified Allergy, Intermediate, BP Decreases, HR Increases , 04/04/17) REACTION WITH SUBLINGUAL PER RECORDS Home Medications Scheduled Aspirin (Aspirin), 81 MG PO QAM Calcium Carbonate-Vitamin D (Calcium + D), 1 TAB PO BID Enoxaparin (Lovenox), 120 MG SQ DAILY Fluticasone Propionate (Inhala (Flovent Diskus), 2 PUFFS INH BID Lisinopril (Zestril), 10 MG PO QAM Metoprolol Succ (Toprol Xl) (Toprol-Xl ), 100 MG PO QAM Pantoprazole (Protonix), 40 MG PO QAM Polyethylene Glycol 3350 (Miralax), 17 GM PO prn Ranitidine (Zantac), 150 MG PO HS Rosuvastatin Calcium (Crestor), 40 MG PO HS Warfarin Sodium (Coumadin), 2 MG PO DAILY Scheduled PRN Albuterol Hfa (Ventolin Hfa), 1-2 PUFFS INH Q4-6H PRN for Shortness of Breath Metoclopramide (Reglan), 5 MG PO QPM PRN for Dyspepsia Review of Systems Constitutional: +Chills. No fever, No sweats Eyes: No worsening of vision, No eye pain, No diplopia ENT: No hearing loss, No nasal symptoms, No trouble swallowing Respiratory: +Cough. No wheezing, No shortness of breath Cardiovascular: No chest pain, No claudication, No palpitations Abdomen: No pain, No nausea, No vomiting Musculoskeletal: No joint pain, No muscle pain, No swelling Genitourinary - Female: +Oliguria. No dysuria, No urinary retention, No hematuria Neurologic: No paralysis, No weakness, No numbness/tingling Integumentary: No rash, No itch, No color change Physical Exam Vital Signs Date Time Temp Pulse Resp B/P (MAP) Pulse Ox O2 Delivery O2 Flow Rate FiO2 04/04/17 18:26 92 16 80/37 93 Room Air 04/04/17 16:48 87 18 95 Room Air 04/04/17 16:26 86 04/04/17 15:58 95 Room Air 04/04/17 15:36 36.5 89 18 91/45 100 Room Air General appearance: +Obese. Well-developed, well-nourished, no apparent distress Head: Normocephalic, atraumatic Eyes: Normal inspection, PERRL, EOMI ENT: Normal ENT inspection, hearing grossly normal, pharynx normal Neck: Supple, no JVD, trachea midline Respiratory/Chest: Lungs clear to auscultation, normal breath sounds, no respiratory distress Cardiovascular: Regular rate & rhythm, no gallop, no murmur Abdomen/GI: Normal bowel sounds, non-tender, soft Extremities/Musculoskeletal: +Mild erythema over anterior lower legs bilaterally. 1+ pitting edema. No calf tenderness Neurological/Psych: Alert, normal mood/affect, oriented x 3 Skin: +Large open wound right chest just inferior to base of neck with drainage and foul odor. Right chest diffusely dusky/erythematous. Area of erythema under right axilla that is TTP. Erythema extends down right flank. Left chest with wound vac in place. Diagnostics Laboratory Results Results Past 24 Hours Test 04/04/17 16:10 04/04/17 16:19 04/04/17 16:20 04/04/17 17:03 Range/Units White Blood Count 14.18 4.8-10.8 K/uL Red Blood Count 3.73 4.2-5.4 M/uL Hemoglobin 10.8 12.0-16.0 g/dL Hematocrit 32.5 37-47 % Mean Corpuscular Volume 87.1 80-100 fL Mean Corpuscular Hemoglobin 29.0 25-34 pg Mean Corpuscular Hemoglobin Concent 33.2 32-36 g/dl Platelet Count 194 130-400 K/uL Mean Platelet Volume 9.0 7.4-10.4 fL Neutrophils (%) (Auto) 88.6 % Lymphocytes (%) (Auto) 2.3 % Monocytes (%) (Auto) 2.0 % Eosinophils (%) (Auto) 5.6 % Basophils (%) (Auto) 0.3 % Neutrophils # (Auto) 12.56 1.4-6.5 K/uL Lymphocytes # (Auto) 0.33 1.2-3.4 K/uL Monocytes # (Auto) 0.29 0.11-0.59 K/uL Eosinophils # (Auto) 0.79 0-0.5 K/uL Basophils # (Auto) 0.04 0-0.2 K/uL RDW Standard Deviation 50.3 36.4-46.3 fL RDW Coefficient of Variation 15.6 11.5-14.5 % Immature Granulocyte % (Auto) 1.2 % Immature Granulocyte # (Auto) 0.17 0.00-0.02 K/uL Toxic Granulation 1+ Toxic Vacuolation 1+ Sodium Level 130 136-145 mmol/L Potassium Level 4.0 3.5-5.1 mmol/L Chloride Level 96 98-107 mmol/L Carbon Dioxide Level 25 21-32 mmol/L Anion Gap 9.0 3-11 mmol/L Blood Urea Nitrogen 39 7-18 mg/dl Creatinine 2.33 0.60-1.20 mg/dl Est Creatinine Clear Calc Drug Dose 18.0 ml/min Estimated GFR () 22.3 Estimated GFR (Non- 19.3 BUN/Creatinine Ratio 16.8 10-20 Random Glucose 95 70-99 mg/dl Calcium Level 8.3 8.5-10.1 mg/dl Magnesium Level 2.1 1.8-2.4 mg/dl Total Bilirubin 0.4 0.2-1 mg/dl Direct Bilirubin 0.1 0-0.2 mg/dl Aspartate Amino Transf (AST/SGOT) 72 15-37 U/L Alanine Aminotransferase (ALT/SGPT) 84 12-78 U/L Alkaline Phosphatase 182 45-117 U/L Total Creatine Kinase 77 26-192 U/L Creatine Kinase MB 0.9 0.5-3.6 ng/ml Creatine Kinase MB Ratio 1.2 0-3.0 Troponin I < 0.015 0-0.045 ng/ml Total Protein 6.3 6.4-8.2 gm/dl Albumin 2.0 3.4-5.0 gm/dl Lipase 94 73-393 U/L Thyroid Stimulating Hormone (TSH) 1.840 0.300-4.500 uIu/ml Bedside Lactic Acid Venous 2.81 0.90-1.70 mmol/L Influenza Type A Antigen Neg for Influ A NEG Influenza Type B Antigen Neg for Influ B NEG Prothrombin Time > 100.0 9.0-12.0 SECONDS Prothromb Time International Ratio > 8.0 0.9-1.1 Activated Partial Thromboplast Time 53.8 21.0-31.0 SECONDS Partial Thromboplastin Ratio 2.1 Microbiology Results 04/04/17 Blood Culture, Received Pending 04/04/17 Blood Culture, Received Pending Diagnostic Radiology Reviewed the following studies and agree with interpretation as follows: CHEST ONE VIEW PORTABLE CLINICAL HISTORY: Weakness. Sepsis. COMPARISON STUDY: Chest CT January 13, 2017 and chest radiograph April 01, 2017. FINDINGS: Left subclavian [id number], mediastinal wires and mediastinal surgical clips are noted. There is no pneumothorax or pleural effusion. Mild bibasilar opacities favor atelectasis. There is no consolidation to suggest pneumonia. Cardiomediastinal silhouette is stable. IMPRESSION: 1. Mild left basilar opacity suggestive of atelectasis. 2. No acute cardiopulmonary findings. EKG Reviewed EKG and agree with interpretation as follows: 89 bpm, NSR Impression Assessment and Plan 81 y/o female with a history of right breast lobular carcinoma, HTN, HLD, CAD, COPD, CKD stage II-III, diet controlled DM II, h/o multiple PE's on chronic anticoagulation and GERD who presented to the ED on 04/04 with hypotension and malaise. The patient remains hypotensive despite fluid boluses, otherwise afebrile and VSS. CXR with let base atelectasis, otherwise negative. EKG no ischemic changes. WBC 14.18. Creatinine 2.33. POC lactic acid 2.81. LFTs elevated. INR over 8, had been just 2.0 on 04/01. Septic shock--likely skin/wound source, radiation hagan on right chest -Admit to ICU as may need pressor support. 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 Pt currently oliguric secondary to ARF -Repeat lactic acid at 2000 -Pt received 1.5L of NSS boluses in ED, another 1L pending -NSS at 125 cc/hr -Wound care nurse consulted, continue wound vac -Monitor LFTs Acute renal failure on CKD stage II-III -Creatinine 2.33 on admission, baseline 0.9-1.1 -IVF as above, continue to monitor Supratherapeutic INR, h/o multiple previous PE's--pt had been transitioning from warfarin to Lovenox due to scheduled bladder procedure next week. Not eating much last few days -INR > 8.0 on admission -Phytonadione 5 mg PO x1 given -Hold warfarin, continue to monitor INR -No signs of bleeding, Hgb stable compared to last 3 months CAD, HTN, HLD--currently hypotensive -Hold ASA, lisinopril and metoprolol for now -Continue Crestor 40 mg PO qd COPD--stable, no exacerbation -Continue Flovent BID DM II, diet controlled--last HgbA1c 5.8 on 12/28/16 GERD -Continue Protonix and Zantac DVT prophylaxis -Hold chemical prophylaxis due to INR over 8 -MT gregorioe and SCDs Code Status -Level I, FULL RESUSCITATION STATUS. Pt states she wants 1 good attempt at resuscitation, but no more than that and nothing prolonged Level of Care Critical Care Resuscitation Status FULL RESUSCITATION VTE Prophylaxis VTE Risk Assessment Done? Y/N: Yes Risk Level: Moderate Given or contraindicated: T.E.DStan Stockings, SCD's Note Supervising Note Dr. Zhong I performed a history and physical examination on the patient. I reviewed above note and agree with it. I discussed plan with APC and patient. During my face to face encounter with the patient, I answered all of the patient's questions.
--- NOTE | 2017-04-04 19:23 | EMERGENCY ROOM VISIT NOTE ---
History Report prepared by Lizy: Don Boyd Under the Supervision of: Dr. Dionicio Jose M.D. First contact with patient: 15:30 Chief Complaint: HYPOTENSION Stated Complaint: SEPSIS History of Present Illness The patient is a 81 year old female who presents to the Emergency Room with complaints of feeling generally unwell and "loopy" that she first experienced last Tuesday, 3 days prior to arrival. The patient visited the radiation oncology unit today and was told to come to the Emergency Department for blood pressure in the 50's systolically. The patient is also complaining of a moist and producing cough, but denies any chest pain. She also denies any recent fevers. The patient has a history of breast cancer with metastasis to the lymph nodes. She is currently suffering from radiation hagan over her chest and back. She notes that the hagan to her right neck are sore. She is currently switching from Coumadin to Lovenox. Pt denies LOC, headache, chills, diaphoresis, visual changes, breathing difficulties, nausea, vomiting, abdominal pain, back pain, melena, hematochezia, urinary symptoms, numbness, lymphadenopathy, rash, or other complaints. Source of History: patient Onset: 3 days [employer] Position: other (Cardiovascular) Quality: other (Hypotension) Timing: other (persistent) Associated Symptoms: No chest pain, No abdominal pain Review of Systems See HPI for pertinent positives and negatives. A total of ten systems were reviewed and were otherwise negative. Past Medical & Surgical Medical Problems: (1) Anticoagulants,Lt,Current Use (2) Asthma, Unspecified, W (Acute) Exacerbation (3) Breast cancer (4) Hypertension Nos (5) Near syncope (6) Old Myocardial Infarct (7) Oth Pulmon Embolism/Infarct (8) Septic shock Surgical Problems: (1) History of knee replacement Family History Patient reports no known family medical history. Social History Smoking Status: Former Smoker Alcohol Use: none Drug Use: none Marital Status: Housing Status: lives alone Occupation Status: retired Current/Historical Medications Scheduled Aspirin (Aspirin), 81 MG PO QAM Calcium Carbonate-Vitamin D (Calcium + D), 1 TAB PO BID Enoxaparin (Lovenox), 120 MG SQ DAILY Fluticasone Propionate (Inhala (Flovent Diskus), 2 PUFFS INH BID Lisinopril (Zestril), 10 MG PO QAM Metoprolol Succ (Toprol Xl) (Toprol-Xl ), 100 MG PO QAM Pantoprazole (Protonix), 40 MG PO QAM Polyethylene Glycol 3350 (Miralax), 17 GM PO prn Ranitidine (Zantac), 150 MG PO HS Rosuvastatin Calcium (Crestor), 40 MG PO HS Warfarin Sodium (Coumadin), 2 MG PO DAILY Scheduled PRN Albuterol Hfa (Ventolin Hfa), 1-2 PUFFS INH Q4-6H PRN for Shortness of Breath Metoclopramide (Reglan), 5 MG PO QPM PRN for Dyspepsia Allergies Coded Allergies: Nitroglycerin (Verified Allergy, Intermediate, BP Decreases, HR Increases , 04/04/17) REACTION WITH SUBLINGUAL PER RECORDS Physical Exam Vital Signs Date Time Temp Pulse Resp B/P (MAP) Pulse Ox O2 Delivery O2 Flow Rate FiO2 04/04/17 18:31 75/32 04/04/17 18:27 93 24 93 04/04/17 18:26 92 16 80/37 93 Room Air 04/04/17 18:26 80/37 04/04/17 18:01 82/43 04/04/17 17:58 79/39 04/04/17 17:57 98 28 71/42 93 04/04/17 17:56 85/39 04/04/17 17:31 85/40 04/04/17 17:27 89 25 97 04/04/17 17:22 87/39 04/04/17 17:08 82/ 04/04/17 16:57 90 25 77/26 95 04/04/17 16:52 71/ 04/04/17 16:48 87 18 95 Room Air 04/04/17 16:43 80/41 04/04/17 16:31 85/48 04/04/17 16:27 90 24 94 04/04/17 16:26 86 04/04/17 16:23 84/41 04/04/17 15:58 95 Room Air 04/04/17 15:36 36.5 89 18 91/45 100 Room Air Physical Exam GENERAL: Awake, alert, well-appearing HENT: Normocephalic, atraumatic. Oropharynx unremarkable. EYES: Normal conjunctiva. Sclera non-icteric. NECK: Supple. No nuchal rigidity. FROM. No JVD. RESPIRATORY: Clear to auscultation. CARDIAC: Regular rate, normal rhythm. Extremities warm and well perfused. Pulses equal. CHEST: There is a wound vac present over the left upper chest. ABDOMEN: Soft, non-distended. No tenderness to palpation. No rebound or guarding. No masses. RECTAL: Deferred. MUSCULOSKELETAL: Chest examination reveals no tenderness. The back is symmetrical on inspection without obvious abnormality. There is no CVA tenderness to palpation. No joint edema. LOWER EXTREMITIES: Calves are equal size bilaterally and non-tender. 1+ lower extremity edema. No discoloration. NEURO: Normal sensorium. No sensory or motor deficits noted. SKIN: No rash or jaundice noted There are healing wounds to the right upper chest and right upper back. The burn wound to the right axilla is warm, red, and indurated. Medical Decision & Procedures ER Provider Diagnostic Interpretation: Radiology results as stated below per my review and radiologist interpretation: CHEST ONE VIEW PORTABLE CLINICAL HISTORY: Weakness. Sepsis. COMPARISON STUDY: Chest CT January 13, 2017 and chest radiograph April 01, 2017. FINDINGS: Left subclavian [id number], mediastinal wires and mediastinal surgical clips are noted. There is no pneumothorax or pleural effusion. Mild bibasilar opacities favor atelectasis. There is no consolidation to suggest pneumonia. Cardiomediastinal silhouette is stable. IMPRESSION: 1. Mild left basilar opacity suggestive of atelectasis. 2. No acute cardiopulmonary findings. Electronically signed by: Guzman Plata M.D. 04/04/2017 4:17 PM Dictated Date/Time: 04/04/2017 4:15 PM Laboratory Results 04/04/17 16:10 Red Blood Count 3.73, Mean Corpuscular Volume 87.1, Mean Corpuscular Hemoglobin 29.0, Mean Corpuscular Hemoglobin Concent 33.2, Mean Platelet Volume 9.0, Neutrophils (%) (Auto) 88.6, Lymphocytes (%) (Auto) 2.3, Monocytes (%) (Auto) 2.0, Eosinophils (%) (Auto) 5.6, Basophils (%) (Auto) 0.3, Neutrophils # (Auto) 12.56, Lymphocytes # (Auto) 0.33, Monocytes # (Auto) 0.29, Eosinophils # (Auto) 0.79, Basophils # (Auto) 0.04 04/04/17 16:10 Test 04/04/17 16:10 04/04/17 16:19 04/04/17 16:20 04/04/17 17:03 White Blood Count 14.18 K/uL (4.8-10.8) Red Blood Count 3.73 M/uL (4.2-5.4) Hemoglobin 10.8 g/dL (12.0-16.0) Hematocrit 32.5 % (37-47) Mean Corpuscular Volume 87.1 fL (80-100) Mean Corpuscular Hemoglobin 29.0 pg (25-34) Mean Corpuscular Hemoglobin Concent 33.2 g/dl (32-36) Platelet Count 194 K/uL (130-400) Mean Platelet Volume 9.0 fL (7.4-10.4) Neutrophils (%) (Auto) 88.6 % Lymphocytes (%) (Auto) 2.3 % Monocytes (%) (Auto) 2.0 % Eosinophils (%) (Auto) 5.6 % Basophils (%) (Auto) 0.3 % Neutrophils # (Auto) 12.56 K/uL (1.4-6.5) Lymphocytes # (Auto) 0.33 K/uL (1.2-3.4) Monocytes # (Auto) 0.29 K/uL (0.11-0.59) Eosinophils # (Auto) 0.79 K/uL (0-0.5) Basophils # (Auto) 0.04 K/uL (0-0.2) RDW Standard Deviation 50.3 fL (36.4-46.3) RDW Coefficient of Variation 15.6 % (11.5-14.5) Immature Granulocyte % (Auto) 1.2 % Immature Granulocyte # (Auto) 0.17 K/uL (0.00-0.02) Toxic Granulation 1+ Toxic Vacuolation 1+ Anion Gap 9.0 mmol/L (3-11) Est Creatinine Clear Calc Drug Dose 18.0 ml/min Estimated GFR () 22.3 Estimated GFR (Non- 19.3 BUN/Creatinine Ratio 16.8 (10-20) Calcium Level 8.3 mg/dl (8.5-10.1) Magnesium Level 2.1 mg/dl (1.8-2.4) Total Bilirubin 0.4 mg/dl (0.2-1) Direct Bilirubin 0.1 mg/dl (0-0.2) Aspartate Amino Transf (AST/SGOT) 72 U/L (15-37) Alanine Aminotransferase (ALT/SGPT) 84 U/L (12-78) Alkaline Phosphatase 182 U/L (45-117) Total Creatine Kinase 77 U/L (26-192) Creatine Kinase MB 0.9 ng/ml (0.5-3.6) Creatine Kinase MB Ratio 1.2 (0-3.0) Troponin I < 0.015 ng/ml (0-0.045) Total Protein 6.3 gm/dl (6.4-8.2) Albumin 2.0 gm/dl (3.4-5.0) Lipase 94 U/L (73-393) Thyroid Stimulating Hormone (TSH) 1.840 uIu/ml (0.300-4.500) Bedside Lactic Acid Venous 2.81 mmol/L (0.90-1.70) Influenza Type A Antigen Neg for Influ A (NEG) Influenza Type B Antigen Neg for Influ B (NEG) Prothrombin Time > 100.0 SECONDS Prothromb Time International Ratio > 8.0 (0.9-1.1) Activated Partial Thromboplast Time 53.8 SECONDS (21.0-31.0) Partial Thromboplastin Ratio 2.1 Laboratory results reviewed by me Medications Administered Medications (Trade) Dose Ordered Sig/Sendy Route Start Time Stop Time Status Last Admin Dose Admin Sodium Chloride 500 ml @ 999 mls/hr Q31M STAT IV 04/04/17 15:47 04/04/17 16:17 DC 04/04/17 16:23 999 MLS/HR Sodium Chloride 1,000 ml @ 999 mls/hr Q1H1M STAT IV 04/04/17 16:50 04/04/17 17:50 DC 04/04/17 17:05 999 MLS/HR Daptomycin 500 mg/ Sodium Chloride 60 ml @ 100 mls/hr NOW STAT IV 04/04/17 16:50 04/04/17 17:25 DC 04/04/17 17:30 100 MLS/HR Cefepime HCl 1000 mg/Dextrose 111 ml @ 200 mls/hr NOW STAT IV 04/04/17 16:50 04/04/17 17:23 DC 04/04/17 17:31 200 MLS/HR Sodium Chloride 1,000 ml @ 999 mls/hr Q1H1M STAT IV 04/04/17 17:59 04/04/17 18:59 DC 04/04/17 18:24 999 MLS/HR Vancomycin HCl 2000 mg/Sodium Chloride 540 ml @ 200 mls/hr NOW STAT IV 04/04/17 18:49 04/04/17 21:30 04/04/17 19:14 200 MLS/HR ECG Indication: other (Hypotension) Rate (beats per minute): 89 Rhythm: normal sinus Findings: Q waves (Anteroseptal ), no ectopy ED Course 1531: The patient was evaluated by the resident at this time. 1547: Ordered Sodium Chloride 500 mL @ 999 mL/hr IV, Sodium Chloride 1000 mL @ 200 mL/hr IV. 1558: The patient was evaluated in room C5. A complete history and physical exam was performed. 1650: Ordered Cefepime HCl 111 mL @ 200 mL/hr IV, Daptomycin 500 mg/Sodium Chloride 60 mL @ 100 mL/hr IV, Sodium Chloride 1000 mL @ 999 mL/hr IV. 1707: I checked on the patient at this time. She was stable in bed. She is agreeable to a stay in the hospital. 1709: The resident took a consult call with Dr. Farheen LIVE Hospitalist at this time. He will evaluate the patient for further treatment. 1759: I checked on the patient at this time. The hospitalist is in the room. I will order another bolus of saline. Medical Decision Triage Nursing notes reviewed. The patient's presentation and history were concerning for hypotension. Etiologies such as metabolic, infection, dehydration, electrolyte abnormalities , cardiac sources, PE, intracerebral event, toxicologic, neurologic, as well as others were entertained. The patient was evaluated. She was mildly hypotensive but was doing well. She was not confused. She didn't feel lightheaded. She was kept in bed and IVs were established. Fluid boluses were given. Blood work was concerning for a leukocytosis and elevated lactate. She also had findings of acute renal failure. The patient was found have a supratherapeutic INR. This would make PE much less likely. Her physical examination revealed findings concerning for cellulitis in the right axilla area. She had IV cefepime and daptomycin given. The patient received additional IV fluids and internal medicine was consulted. On reassessment the patient was still having low blood pressure and additional fluids were administered. The patient was seen by internal medicine , admitted and they consulted with critical care for an ICU bed. The patient was seen and examined with Dr. Boyle, resident physician. We discussed the case and treatments ordered, reviewed the results, and determine the disposition. Please refer to the resident's note for additional details. I have been directly involved with the management and disposition as well as independently evaluated the patient as documented in this note. Consults Time Called: 1700 Consulting Physician: Dr. Farheen LIVE Hospitalist Returned Call: [address] Boyle took a consult call with Dr. Farheen Armijo at this time. The team will evaluate the patient for further treatment. Impression Primary Impression: Sepsis Additional Impressions: Acute renal failure Supratherapeutic INR Elevated LFTs Critical Care I have personally spent greater than 30 minutes of critical care time in the direct management of this patient. This includes bedside care, interpretation of diagnostic studies, and testing, discussion with consultants, patient, and family members, and other required patient management activities. This 30 minutes is in excess of all separately billable procedures. Scribe Attestation The scribe's documentation has been prepared under my direction and personally reviewed by me in its entirety. I confirm that the note above accurately reflects all work, treatment, procedures, and medical decision making performed by me. Departure Information Dispostion Being Evaluated By Hospitalist Referrals Lucian Noe M.D. (PCP) Patient Instructions My [facility] Problem Qualifiers
[2017-04-04] MEDS ORDERED: PIPERACILL/TAZOBAC IV 3.375 GM in DEXTROSE 5% 100ML IV STA (19:54)
[2017-04-04] MEDS ORDERED: PIPERACILL/TAZOBAC CONSULT ACTIVE PRN (20:00)
--- NOTE | 2017-04-04 20:10 | Pharmacy Progress Note ---
Pharmacy Abx Initial Consult Date of Service Apr 04, 2017. Pharmacy Dosing Scope Date of Consult: 04/04/17 Consultation requested by: Jodie [facility] is consulted to initiate Vancomycin/Zosyn IV dosing therapy, order appropriate labs and adjust drug dose/frequency. Subjective The patient is a 81 year old female admitted on . Objective Height (Feet): 5 Height (Inches): 0 Weight (Kilograms): 77.20 Vital Signs (Past 12Hrs) Vital Signs Past 12 Hours Date Time Temp Pulse Resp B/P (MAP) Pulse Ox O2 Delivery O2 Flow Rate FiO2 04/04/17 19:29 99 80/37 04/04/17 18:31 75/32 04/04/17 18:27 93 24 93 04/04/17 18:26 92 16 80/37 93 Room Air 04/04/17 18:26 80/37 04/04/17 18:01 82/43 04/04/17 17:58 79/39 04/04/17 17:57 98 28 71/42 93 04/04/17 17:56 85/39 04/04/17 17:31 85/40 04/04/17 17:27 89 25 97 04/04/17 17:22 87/39 04/04/17 17:08 82/ 04/04/17 16:57 90 25 77/26 95 04/04/17 16:52 71/ 04/04/17 16:48 87 18 95 Room Air 04/04/17 16:43 80/41 04/04/17 16:31 85/48 04/04/17 16:27 90 24 94 04/04/17 16:26 86 04/04/17 16:23 84/41 04/04/17 15:58 95 Room Air 04/04/17 15:36 36.5 89 18 91/45 100 Room Air Lab Results (24Hrs) Laboratory Tests (24 Hours) Test 04/04/17 16:10 White Blood Count 14.18 K/uL (4.8-10.8) H Red Blood Count 3.73 M/uL (4.2-5.4) L Hemoglobin 10.8 g/dL (12.0-16.0) L Hematocrit 32.5 % (37-47) L Mean Corpuscular Volume 87.1 fL (80-100) Mean Corpuscular Hemoglobin 29.0 pg (25-34) Mean Corpuscular Hemoglobin Concent 33.2 g/dl (32-36) Platelet Count 194 K/uL (130-400) Mean Platelet Volume 9.0 fL (7.4-10.4) Neutrophils (%) (Auto) 88.6 % Lymphocytes (%) (Auto) 2.3 % Monocytes (%) (Auto) 2.0 % Eosinophils (%) (Auto) 5.6 % Basophils (%) (Auto) 0.3 % Neutrophils # (Auto) 12.56 K/uL (1.4-6.5) H Lymphocytes # (Auto) 0.33 K/uL (1.2-3.4) L Monocytes # (Auto) 0.29 K/uL (0.11-0.59) Eosinophils # (Auto) 0.79 K/uL (0-0.5) H Basophils # (Auto) 0.04 K/uL (0-0.2) Total Creatine Kinase 77 U/L (26-192) Micro Results Date/Time Source Procedure Growth Status 04/04/17 16:35 Blood Blood Culture Pending Received 04/04/17 16:10 Blood Blood Culture Pending Received Risk Factors for Resistance * Immunocompromised (chemotherapy & XRT) Assessment & Plan Pt is a 81yo F w/ a h/o CKD-III, DMII p/w hypotension and general malaise. She continues to be hypotensive despite multiple fluid resuscitation attempts. Lactic acid: 2.81, Leukocytosis w/ left shift, afebrile. qSOFA score: SBP </= 100mmHg, RR WNL, Nil AMS. BC/UC are pending. Ms. Valdez doesn't have a h/o MDRO ; however, she has a h/o C.Diff. At this juncture admitting provider suspects a wound source. Renal fxn not currently at baseline and will not dose pt pursuant to population p'kinetics. Vanco: * Vancomycin 2000mg (26mg/kg) x1 to achieve a peak of ~37mcg/mL * Will order a random lvl for 04/05/17 @ 0444 * Goal random lvl until c/s's result: 15-20mcg/mL Zosyn: * Set to receive Zosyn 3.375g IV 30min bolus * Then Subsequent EI Zosyn 4.5g q12, I have opted for the larger dose of Zosyn bc I surmise she may require pressor/inotrope support. Pharmacy will continue to follow and will adjust dose/frequency as necessary. Thank you.
--- NOTE | 2017-04-04 20:20 | Critical Care Consultation ---
Critical Care Consultation Date of Consultation: Apr 04, 2017. Attending Physician: Reason for Consultation: 81-year-old female with sepsis and concern for septic shock from possible skin source not responding to IV fluid resuscitation the ER and concerns for need for vasoactive medications. History of Present Illness Patient is a 81-year-old female with a significant past medical history of coronary artery disease with CABG 2 as well as PTCA with stenting 1, hypertension, hyperlipidemia, a bees mellitus, COPD, pulmonary embolism, and breast cancer with recent chemotherapy who presented to the emergency department for evaluation of generalized weakness and hypotension. Most recently, the patient is undergoing radiation therapy alone secondary to metastatic RIGHT-sided breast cancer. She had initially undergone RIGHT-sided mastectomy and had a LEFT subclavian a port placed for chemotherapy. While receiving initial dose of chemotherapy, the patient had significant infiltration of the chemotherapy subcutaneously resulting in wound to the anterior surface of the LEFT-sided chest. Subsequently, the patient has been to wound therapy regularly. She undergoes radiation therapy 5 days a week. She reports that on Tuesday, she noticed that she was feeling "off". She describes lightheadedness as well as some blurry vision and difficulty with focusing. She denies any headaches. Today, while on her way to radiation therapy, she reports that she was experiencing the lightheadedness as well as blurry vision with colored spots in her vision field. Upon arrival at the oncologist's office, she was found to be moderately hypotensive with a systolic blood pressure in the 50s. She was directed to the emergency department for further evaluation. Upon presentation, she was found to be hypotensive. She received 2.5 L normal saline with mild improvement of blood pressure. She received IV cefepime. Blood cultures were obtained. Chest x-ray was not concerning for infiltrative change. Blood cultures are pending. Patient is not febrile. She was mildly tachycardic. She had a supratherapeutic INR of 8.0. She received 5 mg vitamin K orally. She did not require vasoactive medications while in the emergency department. Upon evaluation of the patient, she reports that she is feeling better at this point. She describes less blurry vision and issues with focusing. She rates her current discomfort as a 0/10. She denies any falls recent head injuries. She reports no recent bleeding. She states that she is scheduled to have a cystoscopy performed for a bladder polyp. She is to be transitioning from Coumadin to Lovenox over the next few days prior to this procedure being performed. She denies any hematuria or other bleeding. Patient denies any headaches, slurred speech, facial droop, unilateral weakness/numbness, chest pain, palpitations, short of breath, hemoptysis, nausea, vomiting, hematochezia , melena, hematuria, or dysuria. She reports a remote smoking history having quit in 1994. She denies any daily drinking. Past Medical/Surgical History Medical Problems: (1) Anticoagulants,Lt,Current Use (2) Asthma, Unspecified, W (Acute) Exacerbation (3) Breast cancer (4) Hypertension Nos (5) Near syncope (6) Old Myocardial Infarct (7) Oth Pulmon Embolism/Infarct (8) Septic shock Surgical Problems: (1) History of knee replacement Family History Cancer Diabetes mellitus Myocardial infarction Noncontributory Social History Smoking Status: Former Smoker Smokeless Tobacco Use: No Alcohol Use: none Drug Use: none Marital Status: Housing Status: lives alone Occupation Status: retired Allergies Coded Allergies: Nitroglycerin (Verified Allergy, Intermediate, BP Decreases, HR Increases , 04/04/17) REACTION WITH SUBLINGUAL PER RECORDS Home Medications Scheduled Aspirin (Aspirin), 81 MG PO QAM Calcium Carbonate-Vitamin D (Calcium + D), 1 TAB PO BID Enoxaparin (Lovenox), 120 MG SQ DAILY Fluticasone Propionate (Inhala (Flovent Diskus), 2 PUFFS INH BID Lisinopril (Zestril), 10 MG PO QAM Metoprolol Succ (Toprol Xl) (Toprol-Xl ), 100 MG PO QAM Pantoprazole (Protonix), 40 MG PO QAM Polyethylene Glycol 3350 (Miralax), 17 GM PO prn Ranitidine (Zantac), 150 MG PO HS Rosuvastatin Calcium (Crestor), 40 MG PO HS Warfarin Sodium (Coumadin), 2 MG PO DAILY Scheduled PRN Albuterol Hfa (Ventolin Hfa), 1-2 PUFFS INH Q4-6H PRN for Shortness of Breath Metoclopramide (Reglan), 5 MG PO QPM PRN for Dyspepsia Current Inpatient Medications Current Inpatient Medications Medications (Trade) Dose Ordered Sig/Sendy Route Start Time Stop Time Status Last Admin Dose Admin Sodium Chloride 1,000 ml @ 200 mls/hr Q5H STAT IV 04/04/17 15:47 04/04/17 20:46 Sodium Chloride 1,000 ml @ 125 mls/hr Q8H IV 04/04/17 21:00 05/04/17 18:16 Acetaminophen (Tylenol Tab) 650 mg Q4H PRN PO 04/04/17 18:30 05/04/17 18:29 Al Hydrox/Mg Hydrox/Simethicone (Maalox Max Susp) 15 ml Q4H PRN PO 04/04/17 18:30 05/04/17 18:29 Magnesium Hydroxide (Milk Of Magnesia Susp) 30 ml Q12H PRN PO 04/04/17 18:30 05/04/17 18:29 Ondansetron HCl (Zofran Inj) 4 mg Q6H PRN IV 04/04/17 18:30 05/04/17 18:29 Polyethylene (Miralax Powder Packet) 17 gm DAILY PRN PO 04/04/17 18:30 05/04/17 18:29 Albuterol (Ventolin Hfa Inhaler) 1 puffs Q4H PRN INH 04/04/17 18:30 05/04/17 18:29 Pantoprazole Sodium (Protonix Tab) 40 mg QAM PO 04/05/17 09:00 05/05/17 08:59 Rosuvastatin Calcium (Crestor Tab) 40 mg HS PO 04/04/17 21:00 05/04/17 20:59 Fluticasone Propionate (Flovent Hfa 110MCG Inhaler) 2 puffs BID INH 04/04/17 21:00 05/04/17 20:59 Ranitidine HCl (zANTac TAB) 150 mg HS PO 04/04/17 21:00 05/04/17 20:59 Vancomycin HCl 1000 mg/Sodium Chloride 270 ml @ 125 mls/hr Q12 IV 04/04/17 21:00 04/14/17 20:59 UNV Vancomycin HCl 2000 mg/Sodium Chloride 540 ml @ 200 mls/hr NOW STAT IV 04/04/17 18:49 04/04/17 21:30 04/04/17 19:14 200 MLS/HR Vancomycin HCl (Consult) 1 ea UD PRN N/A 04/04/17 19:00 05/04/17 18:59 Piperacillin Sod/ Tazobactam Sod 3.375 gm/Dextrose 115 ml @ 200 mls/hr Q6 IV 04/05/17 00:00 04/15/17 00:00 UNV Piperacillin Sod/ Tazobactam Sod 3.375 gm/Dextrose 115 ml @ 230 mls/hr NOW STAT IV 04/04/17 19:54 04/04/17 20:23 Piperacillin Sod/ Tazobactam Sod (Consult) 1 ea UD PRN N/A 04/04/17 20:00 05/04/17 19:59 Review of Systems A complete 10-point Review of Systems was discussed with the patient, with pertinent positives and negatives listed in the History of Present Illness. All remaining Review of Systems questions can be considered negative unless otherwise specified. Physical Exam Date Time Temp Pulse Resp B/P (MAP) Pulse Ox O2 Delivery O2 Flow Rate FiO2 04/04/17 20:11 88/46 04/04/17 19:29 99 80/37 04/04/17 18:31 75/32 04/04/17 18:27 93 24 93 04/04/17 18:26 92 16 80/37 93 Room Air 04/04/17 18:26 80/37 04/04/17 18:01 82/43 04/04/17 17:58 79/39 04/04/17 17:57 98 28 71/42 93 04/04/17 17:56 85/39 04/04/17 17:31 85/40 04/04/17 17:27 89 25 97 04/04/17 17:22 87/39 04/04/17 17:08 82/ 04/04/17 16:57 90 25 77/26 95 04/04/17 16:52 71/ 04/04/17 16:48 87 18 95 Room Air 04/04/17 16:43 80/41 04/04/17 16:31 85/48 04/04/17 16:27 90 24 94 04/04/17 16:26 86 04/04/17 16:23 84/41 04/04/17 15:58 95 Room Air 04/04/17 15:36 36.5 89 18 91/45 100 Room Air VITAL SIGNS - Vital signs and nursing notes were reviewed. GENERAL - 81-year-old female appearing her stated age who is in no acute distress. Communicates well with provider and answers questions appropriately. SKIN - Burn-like lesion of the RIGHT sided upper chest with sloughing of skin. no significant surrounding erythema or discharge noted. Dressed wounds to the bilateral breasts with wound Vac in place to the LEFT sided breast. HEAD - NC/AT. EYES - PERRL with EOMI bilaterally. Sclera anicteric. Palpebral conjunctiva pink and moist with no injection noted. EARS - No deformities of external structures noted on gross examination bilaterally. No pain elicited with palpation of the tragus bilaterally. External auditory canals without discharge or otorrhea. Tympanic membranes pearly riojas without retraction or bulging. No fluid or purulent material visualized behind the TM. Handle of malleus, umbo, cone of light, pars tensa/ flaccid all easily visualized. NOSE - Midline and without cyanosis. No epistaxis or purulent drainage noted. Septum midline without deviation or septal hematoma noted. MOUTH/OROPHARYNX - Without perioral cyanosis. Buccal mucosa pink and dry. Tongue midline with equal elevation of palate bilaterally. NECK - Neck with FROM. Supple to palpation. LUNGS - Chest wall symmetric without accessory muscle use, intercostals retractions, or central cyanosis. Normal vesicular breath sounds CTA B/L. No wheezes, rales, or rhonchi appreciated. CARDIAC - RRR with S1/S2. No murmur, rubs, or gallops appreciated. ABDOMEN - Abdominal contour obese without pulsations or visible masses. BS normoactive all four quadrants. No tenderness, palpable masses, hepatosplenomegaly, or ascites noted. EXTREMITIES - No clubbing or peripheral cyanosis. No pretibial edema present. +3 /5 radial and dorsalis pedis pulses palpated throughout. +5/5 strength noted in UE/LE bilaterally. NEUROLOGIC - Cranial nerves II through XII grossly intact. Sensory intact to light touch throughout. PSYCH - A&Ox3 and cooperates fully with examiner. Pt is very pleasant and interacts well with examiner. Laboratory Results Last 24 Hours Test 04/04/17 16:10 04/04/17 16:19 04/04/17 16:20 04/04/17 17:03 White Blood Count 14.18 K/uL Red Blood Count 3.73 M/uL Hemoglobin 10.8 g/dL Hematocrit 32.5 % Mean Corpuscular Volume 87.1 fL Mean Corpuscular Hemoglobin 29.0 pg Mean Corpuscular Hemoglobin Concent 33.2 g/dl Platelet Count 194 K/uL Mean Platelet Volume 9.0 fL Neutrophils (%) (Auto) 88.6 % Lymphocytes (%) (Auto) 2.3 % Monocytes (%) (Auto) 2.0 % Eosinophils (%) (Auto) 5.6 % Basophils (%) (Auto) 0.3 % Neutrophils # (Auto) 12.56 K/uL Lymphocytes # (Auto) 0.33 K/uL Monocytes # (Auto) 0.29 K/uL Eosinophils # (Auto) 0.79 K/uL Basophils # (Auto) 0.04 K/uL RDW Standard Deviation 50.3 fL RDW Coefficient of Variation 15.6 % Immature Granulocyte % (Auto) 1.2 % Immature Granulocyte # (Auto) 0.17 K/uL Toxic Granulation 1+ Toxic Vacuolation 1+ Sodium Level 130 mmol/L Potassium Level 4.0 mmol/L Chloride Level 96 mmol/L Carbon Dioxide Level 25 mmol/L Anion Gap 9.0 mmol/L Blood Urea Nitrogen 39 mg/dl Creatinine 2.33 mg/dl Est Creatinine Clear Calc Drug Dose 18.0 ml/min Estimated GFR () 22.3 Estimated GFR (Non- 19.3 BUN/Creatinine Ratio 16.8 Random Glucose 95 mg/dl Calcium Level 8.3 mg/dl Magnesium Level 2.1 mg/dl Total Bilirubin 0.4 mg/dl Direct Bilirubin 0.1 mg/dl Aspartate Amino Transf (AST/SGOT) 72 U/L Alanine Aminotransferase (ALT/SGPT) 84 U/L Alkaline Phosphatase 182 U/L Total Creatine Kinase 77 U/L Creatine Kinase MB 0.9 ng/ml Creatine Kinase MB Ratio 1.2 Troponin I < 0.015 ng/ml Total Protein 6.3 gm/dl Albumin 2.0 gm/dl Lipase 94 U/L Thyroid Stimulating Hormone (TSH) 1.840 uIu/ml Bedside Lactic Acid Venous 2.81 mmol/L Influenza Type A Antigen Neg for Influ A Influenza Type B Antigen Neg for Influ B Prothrombin Time > 100.0 SECONDS Prothromb Time International Ratio > 8.0 Activated Partial Thromboplast Time 53.8 SECONDS Partial Thromboplastin Ratio 2.1 Test 04/04/17 19:30 04/04/17 20:13 Diagnostic Results Radiological imaging and reports were reviewed by myself. Radiologist's Interpretation as follows: CHEST ONE VIEW PORTABLE CLINICAL HISTORY: Weakness. Sepsis. COMPARISON STUDY: Chest CT January 13, 2017 and chest radiograph April 01, 2017. FINDINGS: Left subclavian [id number], mediastinal wires and mediastinal surgical clips are noted. There is no pneumothorax or pleural effusion. Mild bibasilar opacities favor atelectasis. There is no consolidation to suggest pneumonia. Cardiomediastinal silhouette is stable. IMPRESSION: 1. Mild left basilar opacity suggestive of atelectasis. 2. No acute cardiopulmonary findings. CT SCAN OF THE BRAIN WITHOUT IV CONTRAST CLINICAL HISTORY: Headache and dizziness. Blurry vision. COMPARISON STUDY: CT of the brain dated 06/02/2011. TECHNIQUE: Unenhanced axial CT scan of the brain is performed from the vertex to the skull base. A dose lowering technique was utilized adhering to the principles of ALARA. CT DOSE: 623.48 mGy.cm FINDINGS: Brain parenchyma: There are age-related involutional changes noting [id number] patchy subcortical and periventricular microangiopathic change. There is no hemorrhage, mass effect, or evidence of acute territorial ischemia by CT criteria. [place]-white matter is preserved. No extra-axial fluid collection is seen. Mineralization is noted in the basal ganglia. Ventricles, sulci, cisterns: Prominent secondary to involutional change. Intracranial vasculature: There is atherosclerotic calcification of the cavernous carotid and vertebral arteries. Calvarium: Unremarkable. Sinuses and mastoids: Mild mucosal thickening is seen within the maxillary antra. The remaining visualized paranasal sinuses are clear. The mastoid air cells are well pneumatized. Orbits: The bony orbits are grossly intact. IMPRESSION: There is no hemorrhage, mass effect, or evidence of acute territorial ischemia by CT criteria. Assessment & Plan (1) Sepsis affecting skin (2) Septic shock (3) Acute renal failure (4) Sepsis (5) Elevated LFTs (6) Supratherapeutic INR (7) Old Myocardial Infarct (8) Oth Pulmon Embolism/Infarct (9) Bilateral pulmonary embolism (10) Breast cancer Reason Critically Ill: 81-year-old female with sepsis and concern for septic shock from possible skin source not responding to IV fluid resuscitation the ER and concerns for need for vasoactive medications. Neuro - * CAM ICU: NEGATIVE * Recent Blurry Vision/Difficulty Focusing/[place] in the setting of a Supratherapeutic INR: * CT Head ordered - unremarkable. * Likely related to hypotension from underlying causes. Cardiac - * Hypotension: * Secondary to sepsis w/ septic shock. * Continue to bolus with IVF as patient clinically appears very volume depleted. * Will add vasopressors as needed - Levophed. * Patient has good mentation despite episodes of hypotension. * Will monitor on telemetry. * EKG Demonstrates NSR at 89bpm w/ QTc of 484ms * ECHO (01/03/2017): * -- Conclusions -- * Technically limited study * 1. Normal LV size, borderline concentric LVH. * 2. Low normal LV function. LVEF 50-55%. Akinetic base to mid inferior and septal arana. * 3. Normal RV size, mildly reduced function. * 4. No significant valvular abnormalities. * 5. Compared with prior study on 04/29/2014: No significant changes. * h/o CAD w/ CABG x2 (), PTCA w/ stent x1, hyperlipidemia, Hypertension: * Continue home medications. * Restart BP medications as tolerated. Respiratory - * h/o Asthma/COPD: * Continue home medications. * NC PRN * CXR not concerning for infiltrative changes at this point. * Will check AM CXR. * h/o PE's: * Currently supratherapeutic INR of 8.0. * No active bleeding at this time. * 5mg Vitamin K initially. * Agree with continuing transition to Lovenox. * If emergent intervention/line placement needed, would give FFP p/t performing procedures. * Patient not overtly hypoxic, febrile, tachycardic, tachypneic. In the setting of AGUSTIN w/ supratherapeutic INR - would avoid CTA at this point. GI - * Transaminitis: * Likely 2/2 septic shock. * Will monitor for improvement. * Prophylaxis w/ Protonix/Zantac - home Rx. * AHA diet. RENAL/LYTES - * Acute Kidney Injury in the setting of septic shock: * Aggressive fluid resuscitation in the ED. * Will continue with NSS+20mEq KCl@80mL/hr. * Will add occasional boluses as BP tolerates. * Will trend Cr/BUN. * Monitor electrolytes, replace appropriately. - * Place Cruz Catheter for convenience and to help with decreased patient exertion in the setting of hypotension. * Strict I&Os ENDO - * h/o DM on no medications: * Initial glucose 95 - will trend. * BSGs per protocol. ISS/gtt PRN protocol. * Will at Hemoglobin A1c on AM labs. * No h/o Thyroid Disease. HEME - * Stable anemia in the setting of Breast CA currently receiving radiation therapy alone. * Trend daily. * Transfuse as needed. * Supratherapeutic INR of 8.0: * Likely related to patient's current state of illness with associated dehydration and AGUSTIN. * Initially received Vitamin K in the ED. Will hold on further doses at this time. * If emergent procedure needed - would treat with FFP x2 units p/t performing procedures.' * Leukocytosis in the setting of sepsis - will trend. ID - * Sepsis with Septic Shock from likely Skin Source: * Continue Vancomycin/Zosyn. * Blood cultures x2 pending. * Will add ProCal/Serial Lactates/Random Cortisol * Initial Lactic acid 2.81. * Influenza negative. * Vasoactive support as needed. * Aggressive fluid resuscitation. LINES/IV ACCESS - * PIVs intact. * CVL if emergent and INR improves or received FFP first. * May benefit from PICC line placement for likely chronic need for IV antibiotics. * Cruz Catheter in place. DVT PROPHYLAXIS - * Will hold 2/2 INR of 8.0. * Will restart Lovenox with repeat INR improving. * SCDs. I have personally spent 45 minutes of critical care time in the direct management of this patient. This is a life/limb threatening event. This includes time spent evaluating patient, direct bedside care, chart review, placing orders, interpretation of diagnostic studies, discussion with consultants, patient, and family members, as well as other required patient management activities. This time is exclusive of all separately billable procedures, and teaching time and separate from and in addition to any other critical care service time. Thank you for this consultation allow us to be part of this patient's care. Please refer to my attending physician's documentation for any further recommendations. Resident Physician Supervision Note: I evaluated the patient with Mg Noble PA-C. I discussed the case with the resident and agree with the findings and plan as documented in the note. Any exceptions or clarifications are listed here: Patient with severe sepsis and shock secondary to presumed skin infection. Patient is also coagulopathic, being on Coumadin, with poor PO intake, on Abx She has advanced breast CA, with extensive LN involvement, s/p radiation treatment, skin ulceration of the breast and neck area. Course was also complicated by skin injury over a left sided chest chemo-port secondary to chemotherapeutic agent infiltration. Plan: Continue iv fluids, on broad spectrum Abx (Vancomycin and Zosyn). Procalcitonin 1.58 BP borderline on occasion, but not in shock anymore. Lactic acid is normal, she has adequate urine output. Transfusing FFP x [address] a femoral TLC for better access and possible pressor support. Unable to use the port, she has an wound-VAC over it. Wound not place anything in the neck either and the opposite subclavian is also very close to the skin ulcerations Documented By: Antony Hair MD Problem Qualifiers (1) Sepsis: Sepsis type: sepsis due to unspecified organism Qualified Codes: A41.9 - Sepsis, unspecified organism (2) Breast cancer: Breast location: unspecified site of breast Estrogen receptor status: unspecified Patient sex: female Laterality: right Qualified Codes: C50.911 - Malignant neoplasm of unspecified site of right female breast
[2017-04-04 20:30] VITALS: BP 85/45; PULSE 99; TEMP 36.7; O2SAT 97; BMI 33.4
--- NOTE | 2017-04-04 20:30 | DIAGNOSTIC IMAGING REPORT ---
CT SCAN OF THE BRAIN WITHOUT IV CONTRAST CLINICAL HISTORY: Headache and dizziness. Blurry vision. COMPARISON STUDY: CT of the brain dated 06/02/2011. TECHNIQUE: Unenhanced axial CT scan of the brain is performed from the vertex to the skull base. A dose lowering technique was utilized adhering to the principles of ALARA. CT DOSE: 623.48 mGy.cm FINDINGS: Brain parenchyma: There are age-related involutional changes noting [id number] patchy subcortical and periventricular microangiopathic change. There is no hemorrhage, mass effect, or evidence of acute territorial ischemia by CT criteria. [place]-white matter is preserved. No extra-axial fluid collection is seen. Mineralization is noted in the basal ganglia. Ventricles, sulci, cisterns: Prominent secondary to involutional change. Intracranial vasculature: There is atherosclerotic calcification of the cavernous carotid and vertebral arteries. Calvarium: Unremarkable. Sinuses and mastoids: Mild mucosal thickening is seen within the maxillary antra. The remaining visualized paranasal sinuses are clear. The mastoid air cells are well pneumatized. Orbits: The bony orbits are grossly intact. IMPRESSION: There is no hemorrhage, mass effect, or evidence of acute territorial ischemia by CT criteria. Electronically signed by: Kodi Ro M.D. 04/04/2017 8:29 PM Dictated Date/Time: 04/04/2017 8:27 PM
[2017-04-04] MEDS ORDERED: SODIUM CHLORIDE 0.9% 1000ML 1,000 ML IV SCH (21:00)
[2017-04-04] MEDS ORDERED: VANCOMYCIN INJ 1,000 MG in SODIUM CHLORIDE 0.9% 250ML 250 ML IV SCH (21:00)
[2017-04-04] MEDS ORDERED: ICU PROTOCOL FOR HYPERGLYCEMIA PRN (21:00)
[2017-04-04] MEDS: ROSUVASTATIN CALCIUM 20 MG TAB PO SCH (21:49)
[2017-04-04] MEDS: NSS + 20MEQ KCL 1000ML 1,000 ML IV SCH (21:49)
[2017-04-04] MEDS: RANITIDINE HCL 150 MG TAB PO SCH (21:49)
[2017-04-04] MEDS: FLUTICASONE HFA 110MCG INHALER INH SCH (21:50)
[2017-04-04 22:00] VITALS: BP 69/33; PULSE 99; O2SAT 95
[2017-04-04] MEDS ORDERED: NOREPINEPHRINE BIT INJ 8 MG in DEXTROSE 5% 500ML 500 ML IV PRN (22:23)
[2017-04-04] MEDS ORDERED: SODIUM CHLORIDE 0.9% 1000ML 250 ML IV SCH (22:30)
[2017-04-04 23:59] LABS: CALCIUM 6.9 mg/dl (8.5-10.1); CREATININE 1.53 mg/dl (0.60-1.20); POTASSIUM 3.7 mmol/L (3.5-5.1)
[2017-04-05] VITALS (32 sets, daily range): BP systolic 78–115; BP diastolic 43–77; PULSE 66–102; TEMP 36.5–37.1; O2SAT 91–98; Ht 152.4 cm; Wt 81.2 kg
[2017-04-05] MEDS ORDERED: PIPERACILL/TAZOBAC IV 3.375 GM in DEXTROSE 5% 100ML 100 ML IV SCH ×2
[2017-04-05] MEDS ORDERED: SODIUM CHLORIDE 0.9% 250ML 250 ML IV SCH ×2 (02:00→04:30)
[2017-04-05 04:14] LABS: HEMATOCRIT 27.9 % (37-47); HEMOGLOBIN 9.2 g/dL (12.0-16.0); MEAN CELL VOLUME 87.2 fL (80-100); MEAN CORPUSCULAR HEMOGLOBIN 28.8 pg (25-34); MEAN PLATELET VOLUME 8.9 fL (7.4-10.4); PLATELET COUNT 173 K/uL (130-400); RED CELL DISTRIBUTION WIDTH CV 15.7 % (11.5-14.5); RED CELL DISTRIBUTION WIDTH SD 50.5 fL (36.4-46.3); WHITE BLOOD COUNT 12.28 K/uL (4.8-10.8)
[2017-04-05 04:29] LABS: ALBUMIN 1.4 gm/dl (3.4-5.0); CALCIUM 7.3 mg/dl (8.5-10.1); CREATININE 1.27 mg/dl (0.60-1.20); POTASSIUM 3.7 mmol/L (3.5-5.1)
[2017-04-05 04:36] LABS: PHOSPHORUS 2.2 mg/dl (2.5-4.9); TOTAL PROTEIN 4.8 gm/dl (6.4-8.2)
[2017-04-05 05:06] LABS: INR > 10.0 (0.9-1.1)
[2017-04-05 05:07] LABS: PTT PATIENT 60.5 SECONDS (21.0-31.0)
[2017-04-05] MEDS: PIPERACILL/TAZOBAC IV 4.5 GM in DEXTROSE 5% 100ML IV SCH ×2 (05:20→16:30)
[2017-04-05 06:09] LABS: HEMOGLOBIN A1C 5.7 % (4.5-5.6)
--- NOTE | 2017-04-05 07:04 | DIAGNOSTIC IMAGING REPORT ---
CHEST ONE VIEW PORTABLE CLINICAL HISTORY: atelectasis dyspnea COMPARISON STUDY: 04/04/2017 FINDINGS: Central catheter in superior vena cava. Mild stable cardiomegaly. Prior median sternotomy. Potential slightly progressive basilar parenchymal infiltrates. Pulmonary vascular congestion. IMPRESSION: 1. Slightly progressive bibasilar parenchymal infiltrates. 2. Superimposed pulmonary vascular congestion. The above report was generated using voice recognition software. It may contain grammatical, syntax or spelling errors. Electronically signed by: Deric Silverman M.D. 04/05/2017 7:03 AM Dictated Date/Time: 04/05/2017 7:02 AM
[2017-04-05] MEDS: PANTOprazole SOD 40 MG TAB PO SCH (08:10)
[2017-04-05] MEDS: VANCOMYCIN INJ 1,000 MG in SODIUM CHLORIDE 0.9% 250ML 250 ML IV SCH (08:10)
[2017-04-05] MEDS: FLUTICASONE HFA 110MCG INHALER INH SCH ×2 (08:10→21:13)
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
[2017-04-05] MEDS: NSS + 20MEQ KCL 1000ML 1,000 ML IV SCH (12:35)
--- NOTE | 2017-04-05 14:18 | Procedure Note ---
Procedure Note Procedure Date Apr 05, 2017. Central Line Procedure time out: side/site verified, patient ID confirmed, sterile procedure used Consent obtained: written, verbal Time of procedure: 14:00 Performed by: attending Indications: poor venous access, central drug admin. Prep: chlorhexadine prep, sterile drape, sterile procedures used Anesthesia: local injection, lidocaine 1% without epi Volume anesthetic (ml's): 5 Central line lumen: triple Central line location: femoral (R) Additional details: percutaneous placement, ultrasound guidance, Selinger technique used, line sutured, good blood return Complications: none Patient tolerated procedure: well Post-procedure vital signs: reviewed and stable Comments: May use line
--- NOTE | 2017-04-05 15:55 | Pharmacy Progress Note ---
Pharmacy Abx Dose Short Note Date of Service Apr 05, 2017. Assessment & Plan Assessment 81 year old female receiving vancomcyin and zosyn for treatment of possible sepsis. Day # 2 of antimicrobial therapy. Plan Vancomycin * Random level of 19 mcg/mL post load, therefore redosed at 0800 with 1000mg and will continue this q24 * Given fluctuating renal function, will assess daily the need for levels and alterations in dose. * Zosyn * Increase to 4.5 q8 given improved renal function Pharmacy will continue to follow and will adjust dose/frequency as necessary. Thank you.
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
[2017-04-05 19:55] LABS: INR 3.6 (0.9-1.1)
[2017-04-05 19:56] LABS: PTT PATIENT 47.8 SECONDS (21.0-31.0)
--- NOTE | 2017-04-05 20:35 | Hospitalist Progress Note ---
Hospitalist Progress Note Date of Service Apr 05, 2017. Subjective Pt evaluation today including: conversation w/ patient, conversation w/ inside sales consultant (oncology, care assistant) Patient feeling better than when she came in. Blood pressures are better and she has not required vasopressors. She had a right femoral central venous catheter placed today for access. She was also given FFP and her INR has come down to 3.6. She has been afebrile. All Other Systems: Reviewed and Negative Objective Vital Signs Date Time Temp Pulse Resp B/P (MAP) Pulse Ox O2 Delivery O2 Flow Rate FiO2 04/05/17 17:31 92 30 97/48 (64) 94 04/05/17 17:01 92 29 115/48 (70) 96 04/05/17 17:00 92 24 97 04/05/17 16:00 37.0 90 18 101/53 (69) 96 Room Air 04/05/17 16:00 96 Room Air 04/05/17 14:21 92 18 92/46 (61) 95 Room Air 04/05/17 12:22 37.1 96 22 107/58 94 04/05/17 12:00 37.1 96 18 107/58 (74) 95 Room Air 04/05/17 12:00 Room Air 04/05/17 12:00 37.1 96 22 107/58 95 04/05/17 11:44 37.1 93 16 99/55 96 04/05/17 10:30 37.0 97 18 103/77 98 04/05/17 10:11 37.0 98 18 104/52 96 04/05/17 10:00 37.0 97 18 104/52 (69) 98 Room Air 04/05/17 08:00 Oxymask 04/05/17 08:00 37.0 98 18 92/43 (59) 91 Room Air 04/05/17 08:00 Room Air 04/05/17 06:00 101 22 91/45 (60) 92 Oxymask 2.0 04/05/17 04:14 37.1 102 25 84/43 (57) 96 Oxymask 2.0 04/05/17 04:00 Oxymask 2.0 04/05/17 02:00 98 25 89/45 (60) 93 Oxymask 2.0 04/05/17 00:01 36.5 96 21 84/45 (58) 97 Oxymask 2.0 04/04/17 23:59 Oxymask 2.0 04/04/17 22:00 99 27 69/33 (45) 95 Room Air 04/04/17 20:30 36.7 99 22 85/45 97 Room Air Physical Exam General Appearance: WD/WN, no apparent distress Eyes: normal inspection, sclerae normal ENT: hearing grossly normal Neck: trachea midline Respiratory/Chest: no respiratory distress, no accessory muscle use, + decreased breath sounds (at the bases bilaterally, otherwise clear) Cardiovascular: regular rate, rhythm, no murmur, + pertinent finding (trace pitting edema in the legs to the knees bilaterally, left upper extremity with lymphedema, right femoral central venous catheter in place) Abdomen: normal bowel sounds, non tender, soft, no organomegaly Extremities: no calf tenderness Neurologic/Psychiatric: alert, normal mood/affect, oriented x 3 Skin: + pertinent finding (left anterior chest wall with 6 cm open wound that is foul-smelling with up deformity in place, right chest wall and spreading down right-sided breast with more superficial hagan with peeling skin and erythema) Laboratory Results Last 24 Hours Test 04/04/17 20:13 04/04/17 22:49 04/04/17 22:55 04/05/17 03:53 Lactic Acid Level 1.2 mmol/L 1.4 mmol/L 0.9 mmol/L Sodium Level 136 mmol/L 137 mmol/L Potassium Level 3.7 mmol/L 3.7 mmol/L Chloride Level 105 mmol/L 109 mmol/L Carbon Dioxide Level 22 mmol/L 24 mmol/L Anion Gap 9.0 mmol/L 4.0 mmol/L Blood Urea Nitrogen 31 mg/dl 26 mg/dl Creatinine 1.53 mg/dl 1.27 mg/dl Est Creatinine Clear Calc Drug Dose 27.5 ml/min 33.1 ml/min Estimated GFR () 37.1 46.5 Estimated GFR (Non- 32.0 40.1 BUN/Creatinine Ratio 20.0 20.7 Random Glucose 94 mg/dl 81 mg/dl Estimated Average Glucose 117 mg/dl Hemoglobin A1c 5.7 % Calcium Level 6.9 mg/dl 7.3 mg/dl Procalcitonin 1.58 ng/ml Random Cortisol 15.54 mcg/dl Bedside Glucose 97 mg/dl White Blood Count 12.28 K/uL Red Blood Count 3.20 M/uL Hemoglobin 9.2 g/dL Hematocrit 27.9 % Mean Corpuscular Volume 87.2 fL Mean Corpuscular Hemoglobin 28.8 pg Mean Corpuscular Hemoglobin Concent 33.0 g/dl RDW Standard Deviation 50.5 fL RDW Coefficient of Variation 15.7 % Platelet Count 173 K/uL Mean Platelet Volume 8.9 fL Prothrombin Time > 100.0 SECONDS Prothromb Time International Ratio > 10.0 Activated Partial Thromboplast Time 60.5 SECONDS Partial Thromboplastin Ratio 2.3 Phosphorus Level 2.2 mg/dl Magnesium Level 1.9 mg/dl Total Bilirubin 0.3 mg/dl Direct Bilirubin 0.1 mg/dl Aspartate Amino Transf (AST/SGOT) 38 U/L Alanine Aminotransferase (ALT/SGPT) 55 U/L Alkaline Phosphatase 134 U/L Total Protein 4.8 gm/dl Albumin 1.4 gm/dl Random Vancomycin Level 19.0 mcg/ml Test 04/05/17 06:33 04/05/17 10:30 04/05/17 16:04 04/05/17 19:13 Bedside Glucose 90 mg/dl 80 mg/dl Lactic Acid Level 1.1 mmol/L 0.8 mmol/L Prothrombin Time 37.0 SECONDS Prothromb Time International Ratio 3.6 Activated Partial Thromboplast Time 47.8 SECONDS Partial Thromboplastin Ratio 1.8 Assessment and Plan This patient is a 81 y/o female with a history of right breast lobular carcinoma , HTN, HLD, CAD, COPD, CKD stage II-III, diet controlled DM II, h/o multiple PE' s on chronic anticoagulation and GERD who presented to the ED on 04/04 with hypotension and malaise. She remained hypotensive despite fluid boluses and was admitted to the ICU in case of need for vasopressors. CXR with left base atelectasis, otherwise negative. EKG no ischemic changes. WBC 14.18. Creatinine 2.33. POC lactic acid 2.81. LFTs elevated. INR over 8, had been just 2.0 on 04/01. Septic shock with multisystem organ failure/AGUSTIN--likely skin/wound source, radiation hagan on right chest and open wound from previous chemotherapy induced infiltration wound left chest wall-blood pressures are improving with IV fluids, IV antibiotics, and treatment of sepsis. -Repeat lactic acid has returned to normal. LFTs are improving, and acute kidney injury is improving with creatinine down to 1.27 today. Chest x-ray with bibasilar opacities and pulmonary vascular congestion, not hypoxic -Continue stay in intensive care unit -Continue to Hold lisinopril and metoprolol for now due to hypotension -Continue Vancomycin and Zosyn IV (day #2) -Blood cultures no growth to date-will follow -Urine culture no growth -Wound care nurse consulted, wound VAC removed, will continue wound care with dressing changes Supratherapeutic INR, h/o multiple previous PE's requiring lifelong anticoagulation--pt had been transitioning from warfarin to Lovenox due to scheduled bladder procedure next week. Not eating much last few days, plus with sepsis -INR > 8.0 on admission, given by mouth vitamin K, repeat INR greater than 10- then was given FFP, INR is now down to 3.6 -Continue to Hold warfarin, continue to monitor INR -No signs of bleeding, Hgb fairly stable compared to last 3 months -Eventually will need to start back on anticoagulation given her extensive history of PE/DVT and with current malignancy Metastatic breast cancer-started chemotherapy but due to infiltrative injury around her port, this was discontinued -Has been receiving XRT to the right breast and now with radiation hagan -Oncology consultation appreciated -We will order CT of the chest to further evaluate for progression of pulmonary nodules when patient more stable as per oncology recommendations CAD s/p CABG, HTN, HLD--currently hypotensive -Holding ASA due to coagulopathy -Continue to hold lisinopril and metoprolol for now -Continue Crestor 40 mg PO qd COPD--stable, no exacerbation -Continue Flovent BID DM II, diet controlled- HgbA1c 5.7 glucose in good control -Continue Accu-Cheks GERD -Continue Protonix and Zantac DVT prophylaxis -Hold chemical prophylaxis due to INR over 8 -MT [place] Code Status -Level I, FULL RESUSCITATION STATUS. Pt states she wants 1 good attempt at resuscitation, but no more than that and nothing prolonged
[2017-04-05] MEDS ORDERED: POTASSIUM PHOS 3 MMOL/1 ML INFUSION IV STA (20:59)
[2017-04-05] MEDS: ROSUVASTATIN CALCIUM 20 MG TAB PO SCH (21:13)
[2017-04-05] MEDS: RANITIDINE HCL 150 MG TAB PO SCH (21:13)
[2017-04-05] MEDS ORDERED: POTASSIUM PHOSPHATE INJ 9 MMOL in SODIUM CHLORIDE 0.9% 250ML 250 ML IV ONE (21:30)
[2017-04-06] VITALS (14 sets, daily range): BP systolic 92–137; BP diastolic 47–77; PULSE 86–104; TEMP 36.5–36.7; O2SAT 93–96
[2017-04-06] MEDS: PIPERACILL/TAZOBAC IV 4.5 GM in DEXTROSE 5% 100ML IV SCH ×3 (00:49→17:27)
[2017-04-06] MEDS: NSS + 20MEQ KCL 1000ML 1,000 ML IV SCH (00:49)
[2017-04-06 05:45] LABS: HEMATOCRIT 26.5 % (37-47); HEMOGLOBIN 8.6 g/dL (12.0-16.0); MEAN CELL VOLUME 87.7 fL (80-100); MEAN CORPUSCULAR HEMOGLOBIN 28.5 pg (25-34); MEAN CORPUSCULAR HGB CONC 32.5 g/dl (32-36); MEAN PLATELET VOLUME 8.7 fL (7.4-10.4); PLATELET COUNT 157 K/uL (130-400); RED CELL DISTRIBUTION WIDTH CV 16.2 % (11.5-14.5); RED CELL DISTRIBUTION WIDTH SD 52.2 fL (36.4-46.3); WHITE BLOOD COUNT 6.35 K/uL (4.8-10.8)
[2017-04-06 06:10] LABS: INR 4.1 (0.9-1.1)
[2017-04-06 06:15] LABS: ALBUMIN 1.5 gm/dl (3.4-5.0); CALCIUM 7.4 mg/dl (8.5-10.1); CREATININE 0.86 mg/dl (0.60-1.20); PHOSPHORUS 2.5 mg/dl (2.5-4.9); POTASSIUM 3.8 mmol/L (3.5-5.1); TOTAL PROTEIN 5.1 gm/dl (6.4-8.2)
[2017-04-06] MEDS: VANCOMYCIN INJ 1,000 MG in SODIUM CHLORIDE 0.9% 250ML 250 ML IV SCH (07:50)
--- NOTE | 2017-04-06 08:03 | DIAGNOSTIC IMAGING REPORT ---
SINGLE VIEW CHEST CLINICAL HISTORY: Atelectasis. FINDINGS: An AP, portable, upright chest radiograph is compared to study dated 04/05/2017. The examination is degraded by portable technique and patient rotation. A left subclavian central venous infusion port is unchanged in position. The patient is status post midline sternotomy. The heart is enlarged and there is atherosclerotic calcification of the thoracic aorta. There is prominence of the central pulmonary vasculature. There is left basilar consolidation and small pleural effusions. No pneumothorax is seen. The skeletal structures are osteopenic. The bony thorax is grossly intact. Arthritic change is present in the shoulders and thoracic spine. IMPRESSION: 1. Cardiomegaly with prominence of the central pulmonary vasculature. Correlate clinically for evidence of mild congestive failure. 2. Small pleural effusions. 3. There is left basilar consolidation. This could represent atelectasis versus pneumonia. Clinical correlation will be required. Electronically signed by: Kodi Ro M.D. 04/06/2017 8:02 AM Dictated Date/Time: 04/06/2017 8:00 AM
[2017-04-06] MEDS: FLUTICASONE HFA 110MCG INHALER INH SCH ×2 (08:53→21:34)
[2017-04-06] MEDS: PANTOprazole SOD 40 MG TAB PO SCH (09:37)
[2017-04-06] MEDS ORDERED: PHYTONADIONE 2.5 MG TAB PO STA (13:49)
[2017-04-06] MEDS ORDERED: BOOST PLUS VANILLA PO SCH (14:00)
[2017-04-06] MEDS ORDERED: OPTIRAY 320 IV PRN (14:00)
--- NOTE | 2017-04-06 14:11 | Hospitalist Progress Note ---
Hospitalist Progress Note Date of Service Apr 06, 2017. Subjective Pt evaluation today including: conversation w/ patient, conversation w/ clinical sales consultant (Numerical Control Machine Machinist) Voiding: ortiz catheter in place Pt feeling better today. BPs improved, not on vasopressors, remains afebrile. BCxs not growing anything so far. WOund on left chest foul smelling and Wound RN requesting Wound MD evaluate which I am fully in agreement with. Remains in NSR on tele. Has right femoral CVC in place and 1 left hand PIV that is tenuous All Other Systems: Reviewed and Negative Objective Vital Signs Date Time Temp Pulse Resp B/P (MAP) Pulse Ox O2 Delivery O2 Flow Rate FiO2 04/06/17 12:00 36.6 92 19 126/66 (86) 94 Room Air 04/06/17 12:00 Room Air 04/06/17 10:00 90 28 112/57 (75) 94 Room Air 04/06/17 08:00 Room Air Oxymask 04/06/17 08:00 36.6 97 27 105/62 (76) 93 Room Air 04/06/17 05:01 93 27 109/59 (76) 93 Oxymask 2.0 04/06/17 04:01 90 25 94/51 (65) 95 Oxymask 2.0 04/06/17 04:00 Oxymask 2.0 04/06/17 03:01 88 24 105/47 (66) 93 Oxymask 2.0 04/06/17 02:01 86 23 97/48 (64) 93 Oxymask 2.0 04/06/17 01:01 93 20 109/54 (72) 96 Oxymask 2.0 04/06/17 00:01 36.5 87 23 92/52 (65) 95 Oxymask 2.0 04/06/17 00:00 Oxymask 2.0 04/05/17 22:30 95 17 93 04/05/17 22:29 95 19 96/47 (63) 94 04/05/17 22:15 91 16 94 04/05/17 22:01 90 21 78/49 (59) 94 04/05/17 22:00 91 27 94 04/05/17 21:45 92 29 95 04/05/17 21:31 91 30 98/52 (67) 96 04/05/17 21:30 90 31 94 04/05/17 21:15 99 24 93 04/05/17 21:01 91 31 95/45 (62) 94 04/05/17 21:00 92 26 94 04/05/17 20:45 96 30 94 04/05/17 20:31 92 22 102/51 (68) 93 04/05/17 20:30 98 23 93 04/05/17 20:15 92 23 93 04/05/17 20:00 36.9 66 20 105/45 (65) 93 Room Air 04/05/17 20:00 93 Room Air 04/05/17 17:31 92 30 97/48 (64) 94 04/05/17 17:01 92 29 115/48 (70) 96 04/05/17 17:00 92 24 97 04/05/17 16:00 37.0 90 18 101/53 (69) 96 Room Air 04/05/17 16:00 96 Room Air 04/05/17 14:21 92 18 92/46 (61) 95 Room Air Physical Exam General Appearance: WD/WN, no apparent distress Eyes: normal inspection, sclerae normal ENT: hearing grossly normal Neck: trachea midline Respiratory/Chest: no respiratory distress, no accessory muscle use, + decreased breath sounds (at bases bilat) Cardiovascular: regular rate, rhythm, no murmur Abdomen: normal bowel sounds, non tender, soft Extremities: no calf tenderness, + swelling (1+ pitting edema legs bilat) Neurologic/Psychiatric: alert, normal mood/affect, oriented x 3 Skin: + pertinent finding (left chest wall wound is large, approx 10 x 6 cm, with thick granulation tissue,wet exudate that is quite foul smelling, left breast with erythema and induration; right chest wall and breast with more superficial slightly wet hagan) Laboratory Results Last 24 Hours Test 04/05/17 16:04 04/05/17 19:13 04/05/17 20:10 04/06/17 05:26 Bedside Glucose 80 mg/dl 110 mg/dl Prothrombin Time 37.0 SECONDS 42.0 SECONDS Prothromb Time International Ratio 3.6 4.1 Activated Partial Thromboplast Time 47.8 SECONDS 51.0 SECONDS Partial Thromboplastin Ratio 1.8 2.0 Lactic Acid Level 0.8 mmol/L White Blood Count 6.35 K/uL Red Blood Count 3.02 M/uL Hemoglobin 8.6 g/dL Hematocrit 26.5 % Mean Corpuscular Volume 87.7 fL Mean Corpuscular Hemoglobin 28.5 pg Mean Corpuscular Hemoglobin Concent 32.5 g/dl RDW Standard Deviation 52.2 fL RDW Coefficient of Variation 16.2 % Platelet Count 157 K/uL Mean Platelet Volume 8.7 fL Sodium Level 141 mmol/L Potassium Level 3.8 mmol/L Chloride Level 109 mmol/L Carbon Dioxide Level 24 mmol/L Anion Gap 8.0 mmol/L Blood Urea Nitrogen 19 mg/dl Creatinine 0.86 mg/dl Est Creatinine Clear Calc Drug Dose 49.7 ml/min Estimated GFR () 74.5 Estimated GFR (Non- 64.3 BUN/Creatinine Ratio 22.3 Random Glucose 83 mg/dl Calcium Level 7.4 mg/dl Phosphorus Level 2.5 mg/dl Magnesium Level 2.0 mg/dl Total Bilirubin 0.3 mg/dl Direct Bilirubin 0.1 mg/dl Aspartate Amino Transf (AST/SGOT) 50 U/L Alanine Aminotransferase (ALT/SGPT) 56 U/L Alkaline Phosphatase 125 U/L Total Protein 5.1 gm/dl Albumin 1.5 gm/dl Test 04/06/17 06:30 04/06/17 11:20 Bedside Glucose 89 mg/dl 103 mg/dl Assessment and Plan This patient is a 81 y/o female with a history of right breast lobular carcinoma , HTN, HLD, CAD, COPD, CKD stage II-III, diet controlled DM II, h/o multiple PE' s on chronic anticoagulation and GERD who presented to the ED on 04/04 with hypotension and malaise. She remained hypotensive despite fluid boluses and was admitted to the ICU in case of need for vasopressors. CXR with left base atelectasis, otherwise negative on admission. EKG no ischemic changes. WBC 14.18. Creatinine 2.33. POC lactic acid 2.81. LFTs elevated. INR over 8, had been just 2.0 on 04/01. Septic shock with multisystem organ failure/AGUSTIN--likely skin/wound source, radiation hagan on right chest and open wound from previous chemotherapy- induced infiltration wound left chest wall-blood pressures now normal after aggressive resuscitation with IV fluids, IV antibiotics, and treatment of sepsis. She recently had the eschar from her left chest wound debrided 1 week ago. Repeat lactic acid has returned to normal. LFTs are improving, and acute kidney injury has resolved. Chest x-ray with bibasilar opacities and increasing pulmonary vascular congestion, but not hypoxic. No growth in BCxs, no wound cx collected and with superficial wound, would likely grow out multiple organisms Ur cx no growth -stable for transfer out of ICU, BUT Instensivist recommending keeping Right Femoral CVC in place due to very poor access otherwise---> therefore bedrest only -Will need to remove CVC at least 24 hrs prior to dc to watch for bleeding given coagulopathy -Continue to Hold lisinopril and metoprolol for now and restart perhaps tomorrow -Continue Vancomycin and Zosyn IV (day #3)--> unclear which abx to remain on with no ID'd organism---> consult ID for further recommendations -follow BCxs -Wound care nurse consulted, wound VAC removed, will continue wound care with dressing changes---> consult Wound MD today -consider IV lasix for diuresis if BPs remain stable, dc IVFs today Supratherapeutic INR, h/o multiple previous PE's requiring lifelong anticoagulation--pt had been transitioning from warfarin to Lovenox due to scheduled bladder procedure next week for bladder polyp. Not eating much last few days, plus with sepsis as etiology. -INR > 8.0 on admission, given by mouth vitamin K, repeat INR greater than 10- then was given FFP, INR then down to 3.6--> now back up to 4.1 and on antibiotics -Continue to Hold warfarin, continue to monitor INR -give another Vit K 2.5mg po x 1 today -No signs of bleeding, Hgb with slight drop to 8.6 -Eventually will need to start back on anticoagulation given her extensive history of PE/DVT and with current malignancy Metastatic breast cancer to LNs-started chemotherapy but due to infiltrative injury around her port, this was discontinued. Had indeterminate pulm nodules on CT [facility] in 12/2016 -Has been receiving XRT to the right breast and now with radiation hagan -Oncology consultation appreciated, may start anti-hormonal treatment soon -check CT chest to further evaluate for progression of pulmonary nodules today as per oncology recommendations CAD s/p CABG in 1994, HTN, HLD--no acute issues, hypotension now resolved -Holding ASA due to coagulopathy -Continue to hold lisinopril and metoprolol for now and may restart likely tomorrow -Continue Crestor 40 mg PO qd COPD--stable, no exacerbation -Continue Flovent BID DM II, diet controlled- HgbA1c 5.7 glucose in good control -Continue Accu-Cheks, SSI GERD -Continue Protonix and Zantac DVT prophylaxis -Hold chemical prophylaxis due to INR high -MT hose and SCDs Code Status -Level I, FULL RESUSCITATION STATUS. Pt states she wants 1 good attempt at resuscitation, but no more than that and nothing prolonged
[2017-04-06] MEDS ORDERED: GLUCOSE 10 TABS/TUBE PO PRN (14:15)
[2017-04-06] MEDS ORDERED: GLUCAGON FOR INJ 1 MG VIAL SQ PRN (14:15)
[2017-04-06] MEDS ORDERED: DEXTROSE 50% 50 ML SYR IV PRN (14:15)
[2017-04-06] MEDS ORDERED: GLUCOSE 40% GEL 15 GM TUBE PO PRN (14:15)
--- NOTE | 2017-04-06 14:50 | DIAGNOSTIC IMAGING REPORT ---
(CHEST) THORAX WITH CT DOSE: 720.99 mGy.cm HISTORY: Dyspnea. Pulmonary nodules. f/u indeterminate pulmonary nodules TECHNIQUE: Multiaxial CT images of the chest were performed following the intravenous administration of contrast. A dose lowering technique was utilized adhering to the principles of ALARA. COMPARISON: CT 01/13/2017. Chest series 04/06/2017 FINDINGS: Postprocedural seroma the right breast extending to the right axillary region considered unchanged in the prior study. Interval edematous change of the subcutaneous fat right lateral and posterior lateral chest wall as well as left breast. Findings of a prior median sternotomy. Skin thickening left breast is similar as compared to the prior study. Interval development of bilateral pleural effusions with bilateral lower lobe atelectasis. Increased prominence of the pulmonary vasculature throughout both hemithoraces. Pulmonary nodularity previously described in the patient's prior CT scan cannot be directly correlated as these potentially are obscured due to the pleural effusions and basilar atelectasis. IMPRESSION: 1. Findings of developing congestive failure with bilateral pleural effusions and bibasilar atelectatic change. 2. Pre-existing right breast and axillary seroma unchanged from the prior study. 3. Increasing subcutaneous edema of the right lateral and posterior lateral chest wall is stable edematous changes left breast. 4. Comparison in reference to the nodularity previously described on the patient's prior CT study is not possible as the regions are affectively obscured by the currently present pleural effusions and basilar atelectatic change. The above report was generated using voice recognition software. It may contain grammatical, syntax or spelling errors. Electronically signed by: Deric Silverman M.D. 04/06/2017 2:48 PM Dictated Date/Time: 04/06/2017 2:42 PM
--- NOTE | 2017-04-06 14:59 | Progress Note ---
Progress Note Date of Service Apr 06, 2017. Progress Note ID Consult Dictated #[id number] A/P: 1. Breast wound -Please obtain culture, abx recs based on results -blood cultures negative -continue local wound care -will follow, thank you
--- NOTE | 2017-04-06 15:19 | INFECT. DISEASE CONSULTATION ---
DATE OF CONSULTATION: 04/06/2017 HISTORY OF PRESENT ILLNESS: This is a 81-year-old female who was admitted to the hospital after she was feeling weak for the past prior day to admission. She had poor appetite and had some subjective chills, but did not take her temperature at home. She was initially admitted to the intensive care unit, but was transferred to the telemetry floor on my examination. She was started empirically on vancomycin and Zosyn. She has been afebrile since admission. She did have initial white blood cell count of 14,000. This has improved to 6. Her creatinine was also elevated at 2.3. This has improved to 0.8. She did have elevated LFTs on admission and these have improved as well. Chest x-ray has been negative for pneumonia. Her blood cultures were drawn on in the Emergency Room and are negative. Flu swab is negative. Urinalysis is negative. She does also have a history of radiation burn to the right breast and a chemo burn on the left breast. She has recently been followed at the wound care center with wound VAC for treatment of this. Her daughters are at the bedside and stated while her dressing was being changed this morning by nursing, there was purulent-appearing brownish colored drainage, which was new. A culture was not obtained. Infectious disease was asked for additional antibiotic recommendations. She had not previously been on antibiotics prior to admission. She had not been prescribed any antibiotics by the wound center. There is no recent micro to review on an outpatient basis. Unfortunately, she has a port on the left side and she states she had extravagation of her chemotherapy, which she is undergoing for breast cancer and ended up with a necrotic wound in that area, which is now being treated. A wound center evaluation is pending at this time. She denies any cough, shortness of breath, chest pain, nausea, vomiting or diarrhea. She denies any fever or chills at this time. She denies any pain in the area of the wounds. REVIEW OF SYSTEMS: Her remaining review of systems is unremarkable. PAST MEDICAL HISTORY: Significant for asthma, hypertension, history of IL, history of PE, hyperlipidemia, coronary artery disease, COPD, chronic kidney disease, type 2 diabetes, GERD and breast cancer on chemotherapy. PAST SURGICAL HISTORY: Significant for left chest port placement as well as a breast surgery. She currently has a VAC in place over the left breast. FAMILY HISTORY: Noncontributory. SOCIAL HISTORY: Significant for history of tobacco use. She denies any alcohol or drug use. ALLERGIES: SHE HAS ALLERGIES TO NITROGLYCERIN. CURRENT MEDICATIONS: Include vancomycin, insulin, subQ heparin, Zosyn, Protonix, Crestor, Flovent, Zantac, Maalox, milk of magnesia, MiraLax, Zofran, and albuterol. PHYSICAL EXAMINATION: VITAL SIGNS: She is afebrile, pulse 89, respiratory rate is 20, blood pressure is 129/70, oxygen saturation is 93%-95% on room air. GENERAL: She is awake, alert and oriented x3. She is in no acute distress. HEENT: Mucous membranes are moist. Extraocular muscles are intact. HEART: Regular. LUNGS: Clear. ABDOMEN: Soft. There is no edema. SKIN: Without rash. Dressings are clean, dry and intact. She has asked that they not be removed. LABORATORY STUDIES: CBC today reveals a white blood cell count of 6.3, hemoglobin 8.6 and platelets are 157. Chemistry panel reveals a sodium of 141, potassium 3.8, chloride 109, bicarbonate 24, BUN 19, creatinine 0.8, glucose is 103. AST is 50, ALT 56. UA on admission is negative. A random vancomycin level on was 19. Flu swab was negative. Blood cultures are no growth to date x2 sets. The urine culture is negative. A CAT scan of the chest was done today, which shows developing CHF with pleural effusions, preexisting right breast and axillary seroma unchanged from a previous CAT scan done in December. ASSESSMENT AND PLAN: A breast wound at this time. A culture should be obtained at the time of dressing change if there is concern for infection and antibiotics will be adjusted depending on the results of this. She also can be followed at the wound care center by infectious disease if need be post-discharge from the hospital.
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
[2017-04-06] MEDS ORDERED: FUROSEMIDE INJ 20 MG in SYRINGE 0 ML IV ONE (17:00)
[2017-04-06] MEDS: INSULIN ASPART 100 UNITS/ML 3 ML PEN SC SCH ×2 (17:28→21:00)
[2017-04-06] MEDS: ALBUMIN 25% 50 ML with FUROSEMIDE INJ 20 MG IV SCH ×2 (17:45)
[2017-04-06] MEDS ORDERED: PHYTONADIONE 5 MG TAB PO ONE (17:45)
[2017-04-06] MEDS: BOOST GLUCOSE CONTROL PO SCH ×2 (21:00→21:42)
[2017-04-06] MEDS: RANITIDINE HCL 150 MG TAB PO SCH (21:33)
[2017-04-06] MEDS: ROSUVASTATIN CALCIUM 20 MG TAB PO SCH (21:34)
[2017-04-07] VITALS (9 sets, daily range): BP systolic 114–138; BP diastolic 68–86; PULSE 99–125; TEMP 36.6–36.9; O2SAT 93–96
[2017-04-07] MEDS: PIPERACILL/TAZOBAC IV 4.5 GM in DEXTROSE 5% 100ML IV SCH ×4 (00:23→23:37)
[2017-04-07] MEDS ORDERED: VANCOMYCIN TROUGH ONE (01:30)
[2017-04-07] MEDS: VANCOMYCIN INJ 1,000 MG in SODIUM CHLORIDE 0.9% 250ML 250 ML IV SCH ×2 (03:21→20:36)
[2017-04-07] MEDS: ALBUMIN 25% 50 ML with FUROSEMIDE INJ 20 MG IV SCH ×4 (05:52→17:38)
[2017-04-07 05:54] LABS: HEMOGLOBIN 9.1 g/dL (12.0-16.0); MEAN CELL VOLUME 88.1 fL (80-100); MEAN CORPUSCULAR HEMOGLOBIN 28.6 pg (25-34); MEAN CORPUSCULAR HGB CONC 32.5 g/dl (32-36); MEAN PLATELET VOLUME 8.9 fL (7.4-10.4); PLATELET COUNT 186 K/uL (130-400); RED CELL DISTRIBUTION WIDTH CV 16.1 % (11.5-14.5); RED CELL DISTRIBUTION WIDTH SD 52.3 fL (36.4-46.3); WHITE BLOOD COUNT 4.94 K/uL (4.8-10.8)
[2017-04-07 06:23] LABS: INR 2.9 (0.9-1.1)
[2017-04-07 06:28] LABS: ALBUMIN 1.7 gm/dl (3.4-5.0); CALCIUM 7.7 mg/dl (8.5-10.1); CREATININE 1.01 mg/dl (0.60-1.20); POTASSIUM 3.7 mmol/L (3.5-5.1)
[2017-04-07 06:46] LABS: PHOSPHORUS 3.1 mg/dl (2.5-4.9); TOTAL PROTEIN 5.6 gm/dl (6.4-8.2)
[2017-04-07 06:51] LABS: PTT PATIENT 48.1 SECONDS (21.0-31.0)
[2017-04-07] MEDS: FLUTICASONE HFA 110MCG INHALER INH SCH ×2 (07:30→20:36)
[2017-04-07] MEDS: PANTOprazole SOD 40 MG TAB PO SCH (07:30)
[2017-04-07] MEDS: INSULIN ASPART 100 UNITS/ML 3 ML PEN SC SCH ×4 (07:30→20:37)
[2017-04-07] MEDS: BOOST GLUCOSE CONTROL PO SCH ×2 (09:48→20:36)
--- NOTE | 2017-04-07 11:39 | Pharmacy Progress Note ---
Pharmacy Abx Dose Short Note Date of Service Apr 07, 2017. Assessment & Plan Assessment 81 year old female receiving vancomycin/zosyn. Day # 4 of antimicrobial therapy. Plan Vancomycin * Trough level of 16 mcg/mL is therapeutic. * Continue dose of 1000 mg IV every 18 hours * Goal trough level for : 15 to 20 mcg/mL * Will repeat as clinically indicated Pharmacy will continue to follow and will adjust dose/frequency as necessary. Thank you.
--- NOTE | 2017-04-07 14:06 | Progress Note ---
Subjective Date of Service: Apr 07, 2017. Subjective Pt evaluation today including: conversation w/ patient, physical exam, lab review, conversation w/ applications consultant, review of inpatient medication list Pain: no real pain PO Intake: slowly improving Voiding: ortiz catheter in place overall patient is feeling better weakness improving, denies chest pain, dyspnea discussed plan for wound care and wound care provider to assess reviewed labs, INR 2.9, discussed possibility of just using Lovenox for treatment given her malignancy, frequently high INR Cr stable at 1.0, WBC 4 Problem List Medical Problems: (1) Acute renal failure Status: Acute (2) Bilateral pulmonary embolism Status: Chronic (3) Elevated LFTs Status: Acute (4) Hematuria Status: Acute (5) Orthostatic hypertension Status: Acute (6) Sepsis Status: Acute (7) Sepsis affecting skin Status: Acute (8) Septic shock Status: Acute (9) Supratherapeutic INR Status: Acute (10) Supratherapeutic INR Status: Acute Review of Systems Constitutional: + weakness, + fatigue Skin: + problem reported (right breast wound) All Other Systems: Reviewed and Negative Medications Current Inpatient Medications Medications (Trade) Dose Ordered Sig/Sendy Route Start Time Stop Time Status Last Admin Dose Admin Acetaminophen (Tylenol Tab) 650 mg Q4H PRN PO 04/04/17 18:30 05/04/17 18:29 Al Hydrox/Mg Hydrox/Simethicone (Maalox Max Susp) 15 ml Q4H PRN PO 04/04/17 18:30 05/04/17 18:29 Magnesium Hydroxide (Milk Of Magnesia Susp) 30 ml Q12H PRN PO 04/04/17 18:30 05/04/17 18:29 Ondansetron HCl (Zofran Inj) 4 mg Q6H PRN IV 04/04/17 18:30 05/04/17 18:29 Polyethylene (Miralax Powder Packet) 17 gm DAILY PRN PO 04/04/17 18:30 05/04/17 18:29 Albuterol (Ventolin Hfa Inhaler) 1 puffs Q4H PRN INH 04/04/17 18:30 05/04/17 18:29 Pantoprazole Sodium (Protonix Tab) 40 mg QAM PO 04/05/17 09:00 05/05/17 08:59 04/07/17 07:30 40 MG Rosuvastatin Calcium (Crestor Tab) 40 mg HS PO 04/04/17 21:00 05/04/17 20:59 04/06/17 21:34 40 MG Fluticasone Propionate (Flovent Hfa 110MCG Inhaler) 2 puffs BID INH 04/04/17 21:00 05/04/17 20:59 04/07/17 07:30 2 PUFFS Ranitidine HCl (zANTac TAB) 150 mg HS PO 04/04/17 21:00 05/04/17 20:59 04/06/17 21:33 150 MG Vancomycin HCl (Consult) 1 ea UD PRN N/A 04/04/17 19:00 05/04/17 18:59 Piperacillin Sod/ Tazobactam Sod (Consult) 1 ea UD PRN N/A 04/04/17 20:00 05/04/17 19:59 Norepinephrine Bitartrate 8 mg/ Dextrose 508 ml @ 0 mls/hr Q0M PRN IV 04/04/17 22:23 05/04/17 22:22 Piperacillin Sod/ Tazobactam Sod 4.5 gm/Dextrose 120 ml @ 30 mls/hr Q8H IV 04/06/17 00:00 04/16/17 00:00 04/07/17 07:33 30 MLS/HR Heparin Sodium (Porcine) (Heparin 10 Unit/ ml 5 ml Flush) 5 ml PRN PRN FLUSH 04/06/17 03:30 05/06/17 03:29 Ioversol (Optiray 320) 125 ml UD PRN IV 04/06/17 14:00 04/10/17 13:59 Insulin Aspart (novoLOG ASPART) SLIDING SCALE If C... ACHS SC 04/06/17 16:00 05/06/17 15:59 Glucose (Glucose 40% Gel) 15-30 GRAMS 15 GRAMS... UD PRN PO 04/06/17 14:15 05/06/17 14:14 Glucose (Glucose Chew Tab) 4-8 Tablets 4 Tabl... UD PRN PO 04/06/17 14:15 05/06/17 14:14 Dextrose (Dextrose 50% 50ML Syringe) 25-50ML OF 50% DW IV FOR... UD PRN IV 04/06/17 14:15 2/9/18 14:14 Glucagon (Glucagon Inj) 1 mg UD PRN SQ 04/06/17 14:15 05/06/17 14:14 Vancomycin HCl 1000 mg/Sodium Chloride 270 ml @ 125 mls/hr Q18H IV 04/07/17 02:00 04/13/17 01:59 04/07/17 03:21 125 MLS/HR Enteral Nutritional Formula (Boost Glucose Control) 1 can BID@1000,2100 PO 04/06/17 21:00 05/06/17 20:59 04/07/17 09:48 1 CAN Furosemide 20 mg/ Albumin Human 52 ml @ 54 mls/hr Q12H IV 04/06/17 18:00 04/09/17 17:59 04/07/17 05:52 54 MLS/HR Objective Vital Signs Date Time Temp Pulse Resp B/P (MAP) Pulse Ox O2 Delivery O2 Flow Rate FiO2 04/07/17 12:05 36.7 101 18 129/68 (88) 95 04/07/17 12:00 Room Air 04/07/17 08:37 36.8 108 18 131/79 (96) 96 04/07/17 08:00 Room Air 04/07/17 04:00 Room Air 04/07/17 03:39 36.9 101 18 125/71 (89) 93 04/07/17 00:57 36.8 99 18 128/75 (92) 93 Room Air 04/07/17 00:00 Room Air 04/06/17 20:31 36.7 93 18 137/77 (97) 93 Room Air 04/06/17 20:00 Room Air 04/06/17 16:05 Room Air 04/06/17 15:13 36.6 104 20 136/73 (94) 95 Room Air 04/06/17 14:02 36.6 89 20 93 04/06/17 14:01 92 30 129/70 (89) 95 04/06/17 14:00 99 13 94 Physical Exam General Appearance: no apparent distress, + obese Eyes: normal inspection, EOMI, sclerae normal ENT: normal ENT inspection, hearing grossly normal, pharynx normal Neck: supple, no adenopathy, no JVD, trachea midline Respiratory/Chest: chest non-tender, lungs clear, normal breath sounds, no respiratory distress, no accessory muscle use Cardiovascular: regular rate, rhythm, no edema, no gallop, no JVD, no murmur Abdomen: normal bowel sounds, non tender, soft, no organomegaly Extremities: normal range of motion, non-tender, normal inspection, no pedal edema, no calf tenderness, pelvis stable 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/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 as tested, no motor/sensory deficits, alert, normal mood/affect, oriented x 3 Skin: + pertinent finding (right breast wound, foul odor, draining murky fluid) Laboratory Results Last 24 Hours Test 04/06/17 17:24 04/06/17 20:35 04/07/17 01:22 04/07/17 05:17 Bedside Glucose 108 mg/dl 115 mg/dl Vancomycin Level Trough 16.0 mcg/ml White Blood Count 4.94 K/uL Red Blood Count 3.18 M/uL Hemoglobin 9.1 g/dL Hematocrit 28.0 % Mean Corpuscular Volume 88.1 fL Mean Corpuscular Hemoglobin 28.6 pg Mean Corpuscular Hemoglobin Concent 32.5 g/dl RDW Standard Deviation 52.3 fL RDW Coefficient of Variation 16.1 % Platelet Count 186 K/uL Mean Platelet Volume 8.9 fL Prothrombin Time 29.8 SECONDS Prothromb Time International Ratio 2.9 Activated Partial Thromboplast Time 48.1 SECONDS Partial Thromboplastin Ratio 1.9 Sodium Level 138 mmol/L Potassium Level 3.7 mmol/L Chloride Level 109 mmol/L Carbon Dioxide Level 25 mmol/L Anion Gap 4.0 mmol/L Blood Urea Nitrogen 16 mg/dl Creatinine 1.01 mg/dl Est Creatinine Clear Calc Drug Dose 43.2 ml/min Estimated GFR () 61.3 Estimated GFR (Non- 52.9 BUN/Creatinine Ratio 16.2 Random Glucose 91 mg/dl Calcium Level 7.7 mg/dl Phosphorus Level 3.1 mg/dl Magnesium Level 2.1 mg/dl Total Bilirubin 0.5 mg/dl Direct Bilirubin 0.1 mg/dl Aspartate Amino Transf (AST/SGOT) 53 U/L Alanine Aminotransferase (ALT/SGPT) 59 U/L Alkaline Phosphatase 127 U/L Total Protein 5.6 gm/dl Albumin 1.7 gm/dl Test 04/07/17 06:33 Bedside Glucose 102 mg/dl Assessment and Plan This patient is a 81 y/o female with a history of right breast lobular carcinoma , HTN, HLD, CAD, COPD, CKD stage II-III, diet controlled DM II, h/o multiple PE' s on chronic anticoagulation and GERD who presented to the ED on 04/04 with hypotension and malaise. She remained hypotensive despite fluid boluses and was admitted to the ICU in case of need for vasopressors. CXR with left base atelectasis, otherwise negative on admission. EKG no ischemic changes. WBC 14.18. Creatinine 2.33. POC lactic acid 2.81. LFTs elevated. INR over 8, had been just 2.0 on 04/01. - Septic shock, multisystem organ failure, POA, thought to be secondary to skin wound LA now normal, LFT improving, AGUSTIN resolved, BP stable off of pressors, transferred out of ICU Blood and urine cultures negative, wound culture needs to be obtained when would provider examines wound appreciate ID note, continue broad spectrum abx for now given lack of culture results, day #4 Vanco and Zosyn volume overloaded at this point with aggressive hydration initially, slightly tachycardic with fluid mobilization will start Lasix 20mg IV q12, follow UO - AGUSTIN: due to septic shock, prerenal resolved, Cr down to 1.01, urine output slowing down, still with fluid on board, add Lasix - H/o PE, on Coumadin, markedly elevated INR d/w patient today, has had issues with keeping INR consistent, very sensitive perhaps she could consider Lovenox 1.5mg/kg daily instead, may be more provide benefit in setting of malignancy INR 2.9 today, continue to hold Coumadin, check INR tomorrow - Metastatic breast cancer to LNs-started chemotherapy but due to infiltrative injury around her port, this was discontinued. Had indeterminate pulm nodules on CT Chest in 12/2016 Has been receiving XRT to the right breast and now with radiation hagan Oncology consultation appreciated, may start anti-hormonal treatment soon CT chest on 04/06 to re-assess pulmonary nodules: could not be accurately assessed due to effusions and atelectasis - CAD s/p CABG in 1994, HTN, HLD--no acute issues, hypotension now resolved Holding ASA due to coagulopathy, can resume tomorrow if INR still below 3 resume Lisinopril 10mg and Toprol tomorrow, will reduce Toprol to 50mg Continue Crestor 40 mg PO qd COPD--stable, no exacerbation -Continue Flovent BID DM II, diet controlled- HgbA1c 5.7 glucose in good control -Continue Accu-Cheks, SSI GERD -Continue Protonix and Zantac DVT prophylaxis -INR 2.9 -MT mohamud and Alvarado Code Status -Level I, FULL RESUSCITATION STATUS. Pt states she wants 1 good attempt at resuscitation, but no more than that and nothing prolonged
--- NOTE | 2017-04-07 14:16 | Wound Progress Note: Inpatient ---
Wound Progress Note Date of Service Apr 07, 2017. Subjective Pt evaluation today including: conversation w/ patient, physical exam, chart review Patient was reevaluated today following admission 3 days ago for sepsis secondary to wound infections on the chest wall. Patient states she is feeling much improved. Denies any fever chills or night sweats. Patient denies any increased chest pain or shortness of breath. Patient denies any abdominal pain nausea or vomiting. Objective Vital Signs Date Time Temp Pulse Resp B/P (MAP) Pulse Ox O2 Delivery O2 Flow Rate FiO2 04/07/17 12:05 36.7 101 18 129/68 (88) 95 04/07/17 12:00 Room Air 04/07/17 08:37 36.8 108 18 131/79 (96) 96 04/07/17 08:00 Room Air 04/07/17 04:00 Room Air 04/07/17 03:39 36.9 101 18 125/71 (89) 93 04/07/17 00:57 36.8 99 18 128/75 (92) 93 Room Air 04/07/17 00:00 Room Air 04/06/17 20:31 36.7 93 18 137/77 (97) 93 Room Air 04/06/17 20:00 Room Air 04/06/17 16:05 Room Air 04/06/17 15:13 36.6 104 20 136/73 (94) 95 Room Air Physical Exam Notes: Patients vital signs were reviewed and found to be unremarkable. The left chest wall today shows persistent wound measuring 6 x 10 x 0.3 cm. There is scattered slough and some central necrotic tissue present. Odor is noted. The periwound area shows decreased erythema. No significant pain to palpation in this region. The right chest wall area measures 30 x 10 x 0.1 cm with scattered central slough and surrounding eschar formation. The periwound area again shows improvement and decreased erythema. There is no tenderness to palpation or fluctuance noted. Laboratory Results Last 24 Hours Test 04/06/17 17:24 04/06/17 20:35 04/07/17 01:22 04/07/17 05:17 Bedside Glucose 108 mg/dl 115 mg/dl Vancomycin Level Trough 16.0 mcg/ml White Blood Count 4.94 K/uL Red Blood Count 3.18 M/uL Hemoglobin 9.1 g/dL Hematocrit 28.0 % Mean Corpuscular Volume 88.1 fL Mean Corpuscular Hemoglobin 28.6 pg Mean Corpuscular Hemoglobin Concent 32.5 g/dl RDW Standard Deviation 52.3 fL RDW Coefficient of Variation 16.1 % Platelet Count 186 K/uL Mean Platelet Volume 8.9 fL Prothrombin Time 29.8 SECONDS Prothromb Time International Ratio 2.9 Activated Partial Thromboplast Time 48.1 SECONDS Partial Thromboplastin Ratio 1.9 Sodium Level 138 mmol/L Potassium Level 3.7 mmol/L Chloride Level 109 mmol/L Carbon Dioxide Level 25 mmol/L Anion Gap 4.0 mmol/L Blood Urea Nitrogen 16 mg/dl Creatinine 1.01 mg/dl Est Creatinine Clear Calc Drug Dose 43.2 ml/min Estimated GFR () 61.3 Estimated GFR (Non- 52.9 BUN/Creatinine Ratio 16.2 Random Glucose 91 mg/dl Calcium Level 7.7 mg/dl Phosphorus Level 3.1 mg/dl Magnesium Level 2.1 mg/dl Total Bilirubin 0.5 mg/dl Direct Bilirubin 0.1 mg/dl Aspartate Amino Transf (AST/SGOT) 53 U/L Alanine Aminotransferase (ALT/SGPT) 59 U/L Alkaline Phosphatase 127 U/L Total Protein 5.6 gm/dl Albumin 1.7 gm/dl Test 04/07/17 06:33 Bedside Glucose 102 mg/dl Assessment and Plan Assessment: Nonhealing wound left breast Soft tissue radionecrosis right breast Plan: Postoperative sites did require debridement. With the patient's permission and after the application of topical Xylocaine 4% the sites were debrided of central slough and surrounding eschar and some subcutaneous tissue with the use of a #5 curette, scissors and forceps. No significant bleeding occurred. The right breast will continue be dressed as before. Left breast will be managed with irrigating wound VAC black foam 125 mm of negative pressure wound VAC irrigation 10 minutes followed by 2 hours with VAC therapy. Patient will continue to be monitored during her hospital course. This represented an excisional debridement of approximately 200 cm.
--- NOTE | 2017-04-07 14:25 | Hematology/Oncology Prog Note ---
Hematology/Onc Progress Note Date of Service Apr 07, 2017. Diagnoses Breast carcinoma Hypotension Coronary artery disease Rule out sepsis Medications Medications Administered Medications (Trade) Dose Ordered Sig/Sendy Route Start Time Stop Time Status Last Admin Dose Admin Sodium Chloride 500 ml @ 999 mls/hr Q31M STAT IV 04/04/17 15:47 04/04/17 16:17 DC 04/04/17 16:23 999 MLS/HR Sodium Chloride 1,000 ml @ 999 mls/hr Q1H1M STAT IV 04/04/17 16:50 04/04/17 17:50 DC 04/04/17 17:05 999 MLS/HR Daptomycin 500 mg/ Sodium Chloride 60 ml @ 100 mls/hr NOW STAT IV 04/04/17 16:50 04/04/17 17:25 DC 04/04/17 17:30 100 MLS/HR Cefepime HCl 1000 mg/Dextrose 111 ml @ 200 mls/hr NOW STAT IV 04/04/17 16:50 04/04/17 17:23 DC 04/04/17 17:31 200 MLS/HR Sodium Chloride 1,000 ml @ 999 mls/hr Q1H1M STAT IV 04/04/17 17:59 04/04/17 18:59 DC 04/04/17 18:24 999 MLS/HR Pantoprazole Sodium (Protonix Tab) 40 mg QAM PO 04/05/17 09:00 05/05/17 08:59 04/07/17 07:30 40 MG Rosuvastatin Calcium (Crestor Tab) 40 mg HS PO 04/04/17 21:00 05/04/17 20:59 04/06/17 21:34 40 MG Fluticasone Propionate (Flovent Hfa 110MCG Inhaler) 2 puffs BID INH 04/04/17 21:00 05/04/17 20:59 04/07/17 07:30 2 PUFFS Ranitidine HCl (zANTac TAB) 150 mg HS PO 04/04/17 21:00 05/04/17 20:59 04/06/17 21:33 150 MG Phytonadione (Mephyton Tab) 5 mg NOW STAT PO 04/04/17 18:17 04/04/17 18:40 DC 04/04/17 19:34 5 MG Vancomycin HCl 2000 mg/Sodium Chloride 540 ml @ 200 mls/hr NOW STAT IV 04/04/17 18:49 04/04/17 21:30 DC 04/04/17 19:14 200 MLS/HR Piperacillin Sod/ Tazobactam Sod 3.375 gm/Dextrose 115 ml @ 230 mls/hr NOW STAT IV 04/04/17 19:54 04/04/17 20:23 DC 04/04/17 21:49 230 MLS/HR Piperacillin Sod/ Tazobactam Sod 4.5 gm/Dextrose 120 ml @ 30 mls/hr Q12@0400,1600 IV 04/05/17 04:00 04/05/17 20:00 DC 04/05/17 16:30 30 MLS/HR Potassium Chloride/Sodium Chloride 1,000 ml @ 80 mls/hr [id number] IV 04/04/17 21:15 04/06/17 13:45 DC 04/06/17 00:49 80 MLS/HR Sodium Chloride 250 ml @ 999 mls/hr Q16M IV 04/04/17 22:30 04/04/17 22:45 DC 04/04/17 22:45 999 MLS/HR Sodium Chloride 250 ml @ 999 mls/hr Q16M IV 04/05/17 02:00 04/05/17 02:15 DC 04/05/17 02:16 999 MLS/HR Sodium Chloride 250 ml @ 999 mls/hr Q16M IV 04/05/17 04:30 04/05/17 04:45 DC 04/05/17 05:20 999 MLS/HR Vancomycin HCl 1000 mg/Sodium Chloride 270 ml @ 125 mls/hr Q24H IV 04/05/17 08:00 04/06/17 14:37 DC 04/06/17 07:50 125 MLS/HR Piperacillin Sod/ Tazobactam Sod 4.5 gm/Dextrose 120 ml @ 30 mls/hr Q8H IV 04/06/17 00:00 04/16/17 00:00 04/07/17 07:33 30 MLS/HR Potassium Phosphate 9 mmol/ Sodium Chloride 253 ml @ 88 mls/hr NOW ONCE IV 04/05/17 21:30 04/06/17 00:22 DC 04/05/17 21:42 88 MLS/HR Enteral Nutritional Formula (Boost Plus Vanilla) 1 can TID PO 04/06/17 14:00 04/06/17 17:09 DC 04/06/17 14:07 1 CAN Vancomycin HCl 1000 mg/Sodium Chloride 270 ml @ 125 mls/hr Q18H IV 04/07/17 02:00 04/13/17 01:59 04/07/17 03:21 125 MLS/HR Enteral Nutritional Formula (Boost Glucose Control) 1 can BID@1000,2100 PO 04/06/17 21:00 05/06/17 20:59 04/07/17 09:48 1 CAN Furosemide 20 mg/ Albumin Human 52 ml @ 54 mls/hr Q12H IV 04/06/17 18:00 04/09/17 17:59 04/07/17 05:52 54 MLS/HR Phytonadione (Mephyton Tab) 2.5 mg NOW ONCE PO 04/06/17 17:45 04/06/17 17:46 DC 04/06/17 17:48 2.5 MG Subjective Seems mildly short of breath. She denies any new pain. She has not been febrile. Blood cultures are negative. Review of Systems: Constitutional: Negative for night sweats, or fever Eyes: Negative for event change of vision ENT: Negative for epistaxis, nasal discharge, sore throat, or deafness Cardiovascular: Negative for chest pain, palpitations, dizziness, diaphoresis Respiratory: Mildly short of breath Gastrointestinal: Negative for diarrhea, hematemesis, melena, nausea, vomiting , or dyspepsia Integumentary (skin): Negative for rash or jaundice discoloration Neurological: Negative for weakness, seizure activity, headache, or dizziness Lymphatic/Hematologic: Negative for petechiae, bleeding or new adenopathy Musculoskeletal: Negative for new joint or back pain Allergic/Immunologic: Negative for unusual rash or pruritis. Vital Signs Vital Signs Past 12 Hours Date Time Temp Pulse Resp B/P (MAP) Pulse Ox O2 Delivery O2 Flow Rate FiO2 04/07/17 12:05 36.7 101 18 129/68 (88) 95 04/07/17 12:00 Room Air 04/07/17 08:37 36.8 108 18 131/79 (96) 96 04/07/17 08:00 Room Air 04/07/17 04:00 Room Air 04/07/17 03:39 36.9 101 18 125/71 (89) 93 Physical Exam Constitutional: vitals are stable. Blood pressure has stabilized Eyes: Eyes are NOAH EOMI without conjuctival erythema or icterus. ENT: External examination was negative for masses. Neck: Negative for masses or palpable thyromegaly Respiratory: Lung sounds were generally clear bilaterally Cardiovascular: Heart was RRR without significant murmur, gallops aoe rubs Gastrointestinal: No palpable hepatic or splenomegaly. The abdomen was soft with normal bowel sounds. Lymphatic system: there was no palpable peripheral lymphadenopathy Musculoskeletal System: The musculoskeletal system seemed concordant with age. Skin: The skin was negative for jaundice. There was a wound VAC over the left breast and the right breast is heavily bandaged. Neurologic exam: The exam was negative for any focal findings. Deep tendon reflexes were equal and symmetrical. Psychiatric exam: Was essentially negative with normal mood and effect. Breast exam: As above Extremities : negative for significant edema Laboratory Last 24 Hours Test 04/06/17 17:24 04/06/17 20:35 04/07/17 01:22 04/07/17 05:17 Bedside Glucose 108 mg/dl 115 mg/dl Vancomycin Level Trough 16.0 mcg/ml White Blood Count 4.94 K/uL Red Blood Count 3.18 M/uL Hemoglobin 9.1 g/dL Hematocrit 28.0 % Mean Corpuscular Volume 88.1 fL Mean Corpuscular Hemoglobin 28.6 pg Mean Corpuscular Hemoglobin Concent 32.5 g/dl RDW Standard Deviation 52.3 fL RDW Coefficient of Variation 16.1 % Platelet Count 186 K/uL Mean Platelet Volume 8.9 fL Prothrombin Time 29.8 SECONDS Prothromb Time International Ratio 2.9 Activated Partial Thromboplast Time 48.1 SECONDS Partial Thromboplastin Ratio 1.9 Sodium Level 138 mmol/L Potassium Level 3.7 mmol/L Chloride Level 109 mmol/L Carbon Dioxide Level 25 mmol/L Anion Gap 4.0 mmol/L Blood Urea Nitrogen 16 mg/dl Creatinine 1.01 mg/dl Est Creatinine Clear Calc Drug Dose 43.2 ml/min Estimated GFR () 61.3 Estimated GFR (Non- 52.9 BUN/Creatinine Ratio 16.2 Random Glucose 91 mg/dl Calcium Level 7.7 mg/dl Phosphorus Level 3.1 mg/dl Magnesium Level 2.1 mg/dl Total Bilirubin 0.5 mg/dl Direct Bilirubin 0.1 mg/dl Aspartate Amino Transf (AST/SGOT) 53 U/L Alanine Aminotransferase (ALT/SGPT) 59 U/L Alkaline Phosphatase 127 U/L Total Protein 5.6 gm/dl Albumin 1.7 gm/dl Test 04/07/17 06:33 Bedside Glucose 102 mg/dl Assessment & Plan Review of the chest CT shows bilateral pleural effusions that are new. The pulmonary nodularity that was noted in December cannot be fully assessed due to the pleural fluid but the nodules that were present in December appear unchanged in number or size. Her INR is now 2.9. I have reviewed with radiation therapy as to whether they plan to give further radiation or not and they will review this with the patient. I suspect that we will be starting arimidex in the very near future but would like to see further or continued stability for now. Unclear as to the cause of the bilateral pleural effusions?.
[2017-04-07] MEDS ORDERED: FUROSEMIDE INJ 20 MG in SYRINGE 0 ML IV ONE (14:30)
--- NOTE | 2017-04-07 14:57 | Progress Note ---
Subjective Date of Service: Apr 07, 2017. Subjective Pt evaluation today including: conversation w/ patient, conversation w/ family , physical exam, chart review, lab review, review of studies pt seen at time of vac change, wound improving. no f/c. tolerating abx. no cultures obtained. no pain, all remaining ros reviewed and are negative. Problem List Medical Problems: (1) Acute renal failure Status: Acute (2) Bilateral pulmonary embolism Status: Chronic (3) Elevated LFTs Status: Acute (4) Hematuria Status: Acute (5) Orthostatic hypertension Status: Acute (6) Sepsis Status: Acute (7) Sepsis affecting skin Status: Acute (8) Septic shock Status: Acute (9) Supratherapeutic INR Status: Acute (10) Supratherapeutic INR Status: Acute Objective Vital Signs Date Time Temp Pulse Resp B/P (MAP) Pulse Ox O2 Delivery O2 Flow Rate FiO2 04/07/17 12:05 36.7 101 18 129/68 (88) 95 04/07/17 12:00 Room Air 04/07/17 08:37 36.8 108 18 131/79 (96) 96 04/07/17 08:00 Room Air 04/07/17 04:00 Room Air 04/07/17 03:39 36.9 101 18 125/71 (89) 93 04/07/17 00:57 36.8 99 18 128/75 (92) 93 Room Air 04/07/17 00:00 Room Air 04/06/17 20:31 36.7 93 18 137/77 (97) 93 Room Air 04/06/17 20:00 Room Air 04/06/17 16:05 Room Air 04/06/17 15:13 36.6 104 20 136/73 (94) 95 Room Air Physical Exam General Appearance: WD/WN, no apparent distress Eyes: normal inspection, EOMI Neck: supple Respiratory/Chest: lungs clear, normal breath sounds, no respiratory distress Cardiovascular: regular rate, rhythm, no edema Abdomen: non tender, soft Extremities: non-tender, no pedal edema Neurologic/Psychiatric: alert, oriented x 3 Skin: normal color Comments: no pain at wound, some mild necrotic tissue and surrounding ecchymosis Laboratory Results Last 24 Hours Test 04/06/17 17:24 04/06/17 20:35 04/07/17 01:22 04/07/17 05:17 Bedside Glucose 108 mg/dl 115 mg/dl Vancomycin Level Trough 16.0 mcg/ml White Blood Count 4.94 K/uL Red Blood Count 3.18 M/uL Hemoglobin 9.1 g/dL Hematocrit 28.0 % Mean Corpuscular Volume 88.1 fL Mean Corpuscular Hemoglobin 28.6 pg Mean Corpuscular Hemoglobin Concent 32.5 g/dl RDW Standard Deviation 52.3 fL RDW Coefficient of Variation 16.1 % Platelet Count 186 K/uL Mean Platelet Volume 8.9 fL Prothrombin Time 29.8 SECONDS Prothromb Time International Ratio 2.9 Activated Partial Thromboplast Time 48.1 SECONDS Partial Thromboplastin Ratio 1.9 Sodium Level 138 mmol/L Potassium Level 3.7 mmol/L Chloride Level 109 mmol/L Carbon Dioxide Level 25 mmol/L Anion Gap 4.0 mmol/L Blood Urea Nitrogen 16 mg/dl Creatinine 1.01 mg/dl Est Creatinine Clear Calc Drug Dose 43.2 ml/min Estimated GFR () 61.3 Estimated GFR (Non- 52.9 BUN/Creatinine Ratio 16.2 Random Glucose 91 mg/dl Calcium Level 7.7 mg/dl Phosphorus Level 3.1 mg/dl Magnesium Level 2.1 mg/dl Total Bilirubin 0.5 mg/dl Direct Bilirubin 0.1 mg/dl Aspartate Amino Transf (AST/SGOT) 53 U/L Alanine Aminotransferase (ALT/SGPT) 59 U/L Alkaline Phosphatase 127 U/L Total Protein 5.6 gm/dl Albumin 1.7 gm/dl Test 04/07/17 06:33 Bedside Glucose 102 mg/dl Assessment and Plan (1) Open wound of chest (wall), complicated Assessment & Plan: will contniue Iv abx for now
[2017-04-07] MEDS ORDERED: NURSING VERBAL MED ORDER ONE ×2 (17:00→17:15)
[2017-04-07] MEDS ORDERED: METOPROLOL TARTRATE 1 MG/ML VIAL IV ONE (17:15)
[2017-04-07] MEDS ORDERED: METOPROLOL SUCC 50MG EXT REL TAB PO ONE (17:15)
[2017-04-07] MEDS: METOCLOPRAMIDE HCL 5 MG TAB PO SCH (18:11)
[2017-04-07] MEDS: ROSUVASTATIN CALCIUM 20 MG TAB PO SCH (20:37)
[2017-04-07] MEDS: RANITIDINE HCL 150 MG TAB PO SCH (20:37)
[2017-04-08] VITALS (7 sets, daily range): BP systolic 105–128; BP diastolic 69–84; PULSE 89–114; TEMP 36.6–37; O2SAT 92–99
[2017-04-08] MEDS: ALBUMIN 25% 50 ML with FUROSEMIDE INJ 20 MG IV SCH ×2 (06:42)
[2017-04-08] MEDS: METOCLOPRAMIDE HCL 5 MG TAB PO SCH ×2 (06:42→16:33)
[2017-04-08] MEDS: FUROSEMIDE INJ 20 MG in SYRINGE 0 ML IV SCH ×2 (06:44→07:41)
[2017-04-08] MEDS: INSULIN ASPART 100 UNITS/ML 3 ML PEN SC SCH ×4 (07:00→20:57)
[2017-04-08] MEDS: PIPERACILL/TAZOBAC IV 4.5 GM in DEXTROSE 5% 100ML IV SCH (07:28)
[2017-04-08] MEDS: FLUTICASONE HFA 110MCG INHALER INH SCH ×2 (07:28→20:57)
[2017-04-08] MEDS: METOPROLOL SUCC 50MG EXT REL TAB PO SCH (07:29)
[2017-04-08] MEDS: PANTOprazole SOD 40 MG TAB PO SCH (07:29)
[2017-04-08 08:08] LABS: BASO % 0.2 %; BASO ABS # 0.01 K/uL (0-0.2); EOS % 3.3 %; EOS ABS # 0.21 K/uL (0-0.5); HEMOGLOBIN 9.9 g/dL (12.0-16.0); IG# 0.04 K/uL (0.00-0.02); LYMPH % 11.2 %; LYMPH ABS # 0.72 K/uL (1.2-3.4); MEAN CELL VOLUME 86.8 fL (80-100); MEAN CORPUSCULAR HEMOGLOBIN 27.7 pg (25-34); MEAN CORPUSCULAR HGB CONC 31.9 g/dl (32-36); MEAN PLATELET VOLUME 9.1 fL (7.4-10.4); MONO % 8.7 %; MONO ABS # 0.56 K/uL (0.11-0.59); NEUT ABS # 4.87 K/uL (1.4-6.5); PLATELET COUNT 196 K/uL (130-400); RED CELL DISTRIBUTION WIDTH SD 51.4 fL (36.4-46.3); WHITE BLOOD COUNT 6.41 K/uL (4.8-10.8)
--- NOTE | 2017-04-08 08:08 | DIAGNOSTIC IMAGING REPORT ---
SINGLE VIEW CHEST CLINICAL HISTORY: Dyspnea. FINDINGS: An AP, portable, upright chest radiograph is compared to chest x-ray and chest CT dated 04/06/2017. The examination is degraded by portable technique and patient rotation. A left subclavian central venous infusion port is unchanged in position. The patient is status post midline sternotomy. The heart is enlarged and there is atherosclerotic calcification of the thoracic aorta. There is pulmonary vascular congestion and interstitial edema. This has worsened from 04/06/2017. There are layering pleural effusions with bibasilar atelectasis. No pneumothorax is seen. The skeletal structures are osteopenic. Advanced arthritic change is seen in the shoulders and thoracic spine. IMPRESSION: 1. Cardiomegaly with evidence of congestive failure and interstitial edema. This has worsened from 04/06/2017. 2. Layering pleural effusions with bibasilar consolidation. Electronically signed by: Kodi Ro M.D. 04/08/2017 8:06 AM Dictated Date/Time: 04/08/2017 8:03 AM
[2017-04-08 08:23] LABS: INR 1.7 (0.9-1.1); PTT PATIENT 34.1 SECONDS (21.0-31.0)
[2017-04-08] MEDS ORDERED: MoRPHine SULFATE 2 MG/ML CARP IV PRN (08:30)
[2017-04-08 08:33] LABS: CALCIUM 8.2 mg/dl (8.5-10.1); CREATININE 1.55 mg/dl (0.60-1.20); POTASSIUM 3.7 mmol/L (3.5-5.1)
[2017-04-08 08:41] LABS: PHOSPHORUS 4.3 mg/dl (2.5-4.9)
[2017-04-08] MEDS ORDERED: LISINOPRIL 10 MG TAB PO SCH (09:00)
--- NOTE | 2017-04-08 09:39 | Progress Note ---
Subjective Date of Service: Apr 08, 2017. Subjective Pt evaluation today including: conversation w/ patient, physical exam, chart review, lab review pt states some sob this am, cxr with effusions. afebrile. denies cough or cp. no f/c. no n/v/d. no pain at wound site, wound vac in place. tolerating abx. blood cultures negative, no wound culture obtained. all remaining ros reviewed and are negative. Problem List Medical Problems: (1) Acute renal failure Status: Acute (2) Bilateral pulmonary embolism Status: Chronic (3) Elevated LFTs Status: Acute (4) Hematuria Status: Acute (5) Orthostatic hypertension Status: Acute (6) Sepsis Status: Acute (7) Sepsis affecting skin Status: Acute (8) Septic shock Status: Acute (9) Supratherapeutic INR Status: Acute (10) Supratherapeutic INR Status: Acute Objective Vital Signs Date Time Temp Pulse Resp B/P (MAP) Pulse Ox O2 Delivery O2 Flow Rate FiO2 04/08/17 08:00 Room Air 04/08/17 07:59 36.7 104 18 124/78 (93) 99 04/08/17 04:00 Room Air 04/08/17 03:49 36.7 108 16 105/71 (82) 94 Room Air 04/08/17 00:01 Room Air 04/07/17 23:27 36.7 114 18 114/79 (91) 94 Room Air 04/07/17 20:18 36.6 125 20 122/77 (92) 94 Room Air 04/07/17 20:00 95 Room Air 04/07/17 17:36 137 141/93 04/07/17 16:00 94 Room Air 04/07/17 15:46 36.6 124 20 138/86 (103) 94 Room Air 04/07/17 12:05 36.7 101 18 129/68 (88) 95 04/07/17 12:00 Room Air Physical Exam General Appearance: WD/WN, no apparent distress Eyes: normal inspection, EOMI Neck: supple Respiratory/Chest: normal breath sounds, no respiratory distress, + decreased breath sounds Cardiovascular: regular rate, rhythm, no edema Abdomen: non tender, soft Extremities: non-tender, no pedal edema Neurologic/Psychiatric: alert, oriented x 3 Skin: normal color Comments: chest wall dressing intact. Laboratory Results Item Value Date Time Blood Culture - Preliminary Resulted 04/04/17 1635 Blood NO GROWTH TO DATE. Blood Culture - Preliminary Resulted 04/04/17 1610 Blood NO GROWTH TO DATE. Last 24 Hours Test 04/07/17 11:36 04/07/17 16:04 04/07/17 20:20 04/08/17 06:40 Bedside Glucose 134 mg/dl 129 mg/dl 153 mg/dl 105 mg/dl Test 04/08/17 07:35 White Blood Count 6.41 K/uL Red Blood Count 3.57 M/uL Hemoglobin 9.9 g/dL Hematocrit 31.0 % Mean Corpuscular Volume 86.8 fL Mean Corpuscular Hemoglobin 27.7 pg Mean Corpuscular Hemoglobin Concent 31.9 g/dl Platelet Count 196 K/uL Mean Platelet Volume 9.1 fL Neutrophils (%) (Auto) 76.0 % Lymphocytes (%) (Auto) 11.2 % Monocytes (%) (Auto) 8.7 % Eosinophils (%) (Auto) 3.3 % Basophils (%) (Auto) 0.2 % Neutrophils # (Auto) 4.87 K/uL Lymphocytes # (Auto) 0.72 K/uL Monocytes # (Auto) 0.56 K/uL Eosinophils # (Auto) 0.21 K/uL Basophils # (Auto) 0.01 K/uL RDW Standard Deviation 51.4 fL RDW Coefficient of Variation 16.0 % Immature Granulocyte % (Auto) 0.6 % Immature Granulocyte # (Auto) 0.04 K/uL Prothrombin Time 17.4 SECONDS Prothromb Time International Ratio 1.7 Activated Partial Thromboplast Time 34.1 SECONDS Partial Thromboplastin Ratio 1.3 Sodium Level 137 mmol/L Potassium Level 3.7 mmol/L Chloride Level 105 mmol/L Carbon Dioxide Level 22 mmol/L Anion Gap 10.0 mmol/L Blood Urea Nitrogen 21 mg/dl Creatinine 1.55 mg/dl Est Creatinine Clear Calc Drug Dose 28.2 ml/min Estimated GFR () 36.5 Estimated GFR (Non- 31.5 BUN/Creatinine Ratio 13.4 Random Glucose 117 mg/dl Calcium Level 8.2 mg/dl Phosphorus Level 4.3 mg/dl Magnesium Level 2.1 mg/dl Troponin I 0.286 ng/ml Assessment and Plan (1) Open wound of chest (wall), complicated Assessment & Plan: will contniue Iv abx for now, upon d/c would suggest transition to po doxy 100mg po bid with food min 3 weeks. will plan to follow in wound center post d/c.
[2017-04-08] MEDS: BOOST GLUCOSE CONTROL PO SCH ×2 (09:56→20:57)
--- NOTE | 2017-04-08 10:47 | Medical Student: [facility] ---
Med Student Progress Note Date of Service Apr 08, 2017. Subjective Pt evaluation today including: conversation w/ patient, physical exam, chart review, lab review Voiding: ortiz catheter in place 81 y/o F admitted with hypotension and malaise. Required vasopressors initially because BP refractory to IVFs. Initial POC lactic acid 2.81 and an INR > 8 on Coumadin. Overnight: Slept well. Ortiz in place. This morning: SOB increased significantly. Pt is still comfortable lying at 25 degrees. Some swelling in feet and hands. Last BM: this morning. was soft. nurses made aware. pt is unsure how many times. Denies:fever/chills, CP, N/V, abdominal pain, pain from Ortiz. Review of Systems Constitutional: No fever, No chills Respiratory: + shortness of breath, No cough, No sputum, No wheezing Cardiac: No chest pain Breast: + problem reported (right breast rad onc burn, left wound vac) Abdomen: + diarrhea, No pain, No nausea, No vomiting Psychiatric: No depression symptoms Endo: + fatigue Skin: No rash, No itch Objective Vital Signs Date Time Temp Pulse Resp B/P (MAP) Pulse Ox O2 Delivery O2 Flow Rate FiO2 04/08/17 08:00 Room Air 04/08/17 07:59 36.7 104 18 124/78 (93) 99 04/08/17 04:00 Room Air 04/08/17 03:49 36.7 108 16 105/71 (82) 94 Room Air 04/08/17 00:01 Room Air 04/07/17 23:27 36.7 114 18 114/79 (91) 94 Room Air 04/07/17 20:18 36.6 125 20 122/77 (92) 94 Room Air 04/07/17 20:00 95 Room Air 04/07/17 17:36 137 141/93 04/07/17 16:00 94 Room Air 04/07/17 15:46 36.6 124 20 138/86 (103) 94 Room Air 04/07/17 12:05 36.7 101 18 129/68 (88) 95 04/07/17 12:00 Room Air Physical Exam General Appearance: WD/WN, no apparent distress Eyes: bilateral eyes EOMI ENT: hearing grossly normal Respiratory/Chest: chest non-tender, lungs clear, + decreased breath sounds ( bases in med lung hunter decreased), + crackles, + rales, + rhonchi, + wheezing Cardiovascular: regular rate, rhythm, no murmur Abdomen: normal bowel sounds, non tender, soft Extremities: non-tender, + pedal edema Neurologic/Psychiatric: alert, normal mood/affect, oriented x 3 Skin: normal color, warm/dry, no rash Laboratory Results Last 24 Hours Test 04/07/17 11:36 04/07/17 16:04 04/07/17 20:20 04/08/17 06:40 Bedside Glucose 134 mg/dl 129 mg/dl 153 mg/dl 105 mg/dl Test 04/08/17 07:35 White Blood Count 6.41 K/uL Red Blood Count 3.57 M/uL Hemoglobin 9.9 g/dL Hematocrit 31.0 % Mean Corpuscular Volume 86.8 fL Mean Corpuscular Hemoglobin 27.7 pg Mean Corpuscular Hemoglobin Concent 31.9 g/dl Platelet Count 196 K/uL Mean Platelet Volume 9.1 fL Neutrophils (%) (Auto) 76.0 % Lymphocytes (%) (Auto) 11.2 % Monocytes (%) (Auto) 8.7 % Eosinophils (%) (Auto) 3.3 % Basophils (%) (Auto) 0.2 % Neutrophils # (Auto) 4.87 K/uL Lymphocytes # (Auto) 0.72 K/uL Monocytes # (Auto) 0.56 K/uL Eosinophils # (Auto) 0.21 K/uL Basophils # (Auto) 0.01 K/uL RDW Standard Deviation 51.4 fL RDW Coefficient of Variation 16.0 % Immature Granulocyte % (Auto) 0.6 % Immature Granulocyte # (Auto) 0.04 K/uL Prothrombin Time 17.4 SECONDS Prothromb Time International Ratio 1.7 Activated Partial Thromboplast Time 34.1 SECONDS Partial Thromboplastin Ratio 1.3 Sodium Level 137 mmol/L Potassium Level 3.7 mmol/L Chloride Level 105 mmol/L Carbon Dioxide Level 22 mmol/L Anion Gap 10.0 mmol/L Blood Urea Nitrogen 21 mg/dl Creatinine 1.55 mg/dl Est Creatinine Clear Calc Drug Dose 28.2 ml/min Estimated GFR () 36.5 Estimated GFR (Non- 31.5 BUN/Creatinine Ratio 13.4 Random Glucose 117 mg/dl Calcium Level 8.2 mg/dl Phosphorus Level 4.3 mg/dl Magnesium Level 2.1 mg/dl Troponin I 0.286 ng/ml 04/08/17 CXR IMPRESSION: 1. Cardiomegaly with evidence of congestive failure and interstitial edema. This has worsened from 04/06/2017. 2. Layering pleural effusions with bibasilar consolidation. Medications Current Inpatient Medications Medications (Trade) Dose Ordered Sig/Sendy Route Start Time Stop Time Status Last Admin Dose Admin Acetaminophen (Tylenol Tab) 650 mg Q4H PRN PO 04/04/17 18:30 05/04/17 18:29 Al Hydrox/Mg Hydrox/Simethicone (Maalox Max Susp) 15 ml Q4H PRN PO 04/04/17 18:30 05/04/17 18:29 Magnesium Hydroxide (Milk Of Magnesia Susp) 30 ml Q12H PRN PO 04/04/17 18:30 05/04/17 18:29 Ondansetron HCl (Zofran Inj) 4 mg Q6H PRN IV 04/04/17 18:30 05/04/17 18:29 Polyethylene (Miralax Powder Packet) 17 gm DAILY PRN PO 04/04/17 18:30 05/04/17 18:29 Albuterol (Ventolin Hfa Inhaler) 1 puffs Q4H PRN INH 04/04/17 18:30 05/04/17 18:29 Pantoprazole Sodium (Protonix Tab) 40 mg QAM PO 04/05/17 09:00 05/05/17 08:59 04/08/17 07:29 40 MG Rosuvastatin Calcium (Crestor Tab) 40 mg HS PO 04/04/17 21:00 05/04/17 20:59 04/07/17 20:37 40 MG Fluticasone Propionate (Flovent Hfa 110MCG Inhaler) 2 puffs BID INH 04/04/17 21:00 05/04/17 20:59 04/08/17 07:28 2 PUFFS Ranitidine HCl (zANTac TAB) 150 mg HS PO 04/04/17 21:00 05/04/17 20:59 04/07/17 20:37 150 MG Vancomycin HCl (Consult) 1 ea UD PRN N/A 04/04/17 19:00 05/04/17 18:59 Piperacillin Sod/ Tazobactam Sod (Consult) 1 ea UD PRN N/A 04/04/17 20:00 05/04/17 19:59 Norepinephrine Bitartrate 8 mg/ Dextrose 508 ml @ 0 mls/hr Q0M PRN IV 04/04/17 22:23 05/04/17 22:22 Piperacillin Sod/ Tazobactam Sod 4.5 gm/Dextrose 120 ml @ 30 mls/hr Q8H IV 04/06/17 00:00 04/16/17 00:00 04/08/17 07:28 30 MLS/HR Heparin Sodium (Porcine) (Heparin 10 Unit/ ml 5 ml Flush) 5 ml PRN PRN FLUSH 04/06/17 03:30 05/06/17 03:29 Ioversol (Optiray 320) 125 ml UD PRN IV 04/06/17 14:00 04/10/17 13:59 Insulin Aspart (novoLOG ASPART) SLIDING SCALE If C... ACHS SC 04/06/17 16:00 05/06/17 15:59 Glucose (Glucose 40% Gel) 15-30 GRAMS 15 GRAMS... UD PRN PO 04/06/17 14:15 05/06/17 14:14 Glucose (Glucose Chew Tab) 4-8 Tablets 4 Tabl... UD PRN PO 04/06/17 14:15 05/06/17 14:14 Dextrose (Dextrose 50% 50ML Syringe) 25-50ML OF 50% DW IV FOR... UD PRN IV 04/06/17 14:15 05/06/17 14:14 Glucagon (Glucagon Inj) 1 mg UD PRN SQ 04/06/17 14:15 05/06/17 14:14 Vancomycin HCl 1000 mg/Sodium Chloride 270 ml @ 125 mls/hr Q18H IV 04/07/17 02:00 04/13/17 01:59 Future Hold 04/07/17 20:36 125 MLS/HR Enteral Nutritional Formula (Boost Glucose Control) 1 can BID@1000,2100 PO 04/06/17 21:00 05/06/17 20:59 04/07/17 20:36 1 CAN Furosemide 20 mg/ Albumin Human 52 ml @ 54 mls/hr Q12H IV 04/06/17 18:00 04/09/17 17:59 1/12/18 06:42 54 MLS/HR Metoprolol Succinate (Toprol Xl Tab) 50 mg QAM PO 04/08/17 09:00 05/08/17 08:59 04/08/17 07:29 50 MG Lisinopril (Zestril Tab) 10 mg QAM PO 04/08/17 09:00 05/08/17 08:59 04/08/17 07:29 10 MG Metoclopramide HCl (Reglan Tab) 5 mg BID@0700,1600 PO 04/07/17 17:30 05/07/17 17:29 04/08/17 06:42 5 MG Furosemide 40 mg/ Syringe 4 ml @ 4 mls/min Q6 IV 04/08/17 12:00 05/08/17 11:59 Morphine Sulfate (MoRPHine SULFATE INJ) 1 mg Q4 PRN IV 04/08/17 08:30 04/22/17 08:29 Assessment and Plan Assessment and Plan: 81 y/o F with hx of right breast lobular carcinoma, HTN, HLD, CAD, COPD, CKD stage 2-3, DM2, 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 1. Septic Shock -No longer septic as wbc is now 6.4, vitals normal but for elevated pulse 104, normal LA -blood and urine cx were negative -no wound cx were taken -continue IV vanco and pip/tazo day 5 for broad coverage and switch to doxy 100mg BID with food at least 3/week as outpatient when dischaged 2. AGUSTIN -thought to be prerenal because Cr responded to fluids -Cr was down to 1.01 yesterday, up to 1.5 today -Continue IV lasix 40 mg q6 and monitor urine output 3. old PEs -Resume coumadin today as INR is 1.7 -Or switch to lovenox 1.5mg/kg daily because of trouble keeping INR consistent. Consult case management to call insurance company. 4. Breast Cancer -see oncology note -rad onc will determine if radiation therapy should be continued -possibly starting hormone based chemo with Arimidex soon -unsure if CA causing bilat pleural effusions on repeat CXR, consider monitor breathing and repeat CXR tomorrow 5. Diarrhea -Send stool cx to test for c. diff. 6. SOB -Colume overload with swelling and bilat pleural effusions -Continue lasix as above. Pt states breathing improving with lasix. Ortiz cath draining dark yellow urine. 7. CAD s/p CABG 1994, HTN, HLD -Hypotension resolved -resume ASA as INR is 1.7 -resume lisinopril 10mg and toprol 50mg -crestor continue 40mg PO qd 8. COPD -stable, continue home med flovent BID 9. DM2 -continue control with diet -A1C is 5.7 10. GERD -continue protonix and zantac 11. DVT ppx -re-start Coumadin or being lovenox as INR therapeutic 1.[address] [facility] stay due to: multiple IV medications needed, home environment unsafe for pt
[2017-04-08] MEDS ORDERED: FUROSEMIDE INJ 40 MG in SYRINGE 0 ML IV SCH (12:00)
[2017-04-08] MEDS ORDERED: DIPHENOXYLATE/ATROPINE 2.5/0.025MG TAB PO PRN (12:30)
[2017-04-08] MEDS ORDERED: VANCOMYCIN TROUGH ONE (13:30)
[2017-04-08] MEDS ORDERED: WARFARIN SOD 4 MG TAB PO SCH (16:00)
--- NOTE | 2017-04-08 16:19 | Progress Note ---
Subjective Date of Service: Apr 08, 2017. Subjective Pt evaluation today including: conversation w/ patient, conversation w/ family , physical exam, lab review, review of studies, review of inpatient medication list Pain: pain in breasts PO Intake: improving slowly Voiding: ortiz catheter in place called to room early this AM, 715, patient in mild respiratory distress, no hypoxia rales bilaterally on exam, CXR showed bilateral pulmonary edema Lasix 40mg IV given, diuresed well and breathing improved, additional 40mg IV given at 1200, again, diuresing appreciate note from ID, recommend Doxycycline for antibiotic coverage on discharge labs reviewed, Hb 9, Cr up slightly at 1.5 Problem List Medical Problems: (1) Acute renal failure Status: Acute (2) Bilateral pulmonary embolism Status: Chronic (3) Elevated LFTs Status: Acute (4) Hematuria Status: Acute (5) Orthostatic hypertension Status: Acute (6) Sepsis Status: Acute (7) Sepsis affecting skin Status: Acute (8) Septic shock Status: Acute (9) Supratherapeutic INR Status: Acute (10) Supratherapeutic INR Status: Acute Review of Systems Constitutional: + weakness, + fatigue Respiratory: + shortness of breath, + dyspnea on exertion Cardiac: + edema All Other Systems: Reviewed and Negative Medications Current Inpatient Medications Medications (Trade) Dose Ordered Sig/Sendy Route Start Time Stop Time Status Last Admin Dose Admin Acetaminophen (Tylenol Tab) 650 mg Q4H PRN PO 04/04/17 18:30 05/04/17 18:29 Al Hydrox/Mg Hydrox/Simethicone (Maalox Max Susp) 15 ml Q4H PRN PO 04/04/17 18:30 05/04/17 18:29 Magnesium Hydroxide (Milk Of Magnesia Susp) 30 ml Q12H PRN PO 04/04/17 18:30 05/04/17 18:29 Ondansetron HCl (Zofran Inj) 4 mg Q6H PRN IV 04/04/17 18:30 05/04/17 18:29 Polyethylene (Miralax Powder Packet) 17 gm DAILY PRN PO 04/04/17 18:30 05/04/17 18:29 Albuterol (Ventolin Hfa Inhaler) 1 puffs Q4H PRN INH 04/04/17 18:30 05/04/17 18:29 Pantoprazole Sodium (Protonix Tab) 40 mg QAM PO 04/05/17 09:00 05/05/17 08:59 04/08/17 07:29 40 MG Rosuvastatin Calcium (Crestor Tab) 40 mg HS PO 04/04/17 21:00 05/04/17 20:59 04/07/17 20:37 40 MG Fluticasone Propionate (Flovent Hfa 110MCG Inhaler) 2 puffs BID INH 04/04/17 21:00 05/04/17 20:59 04/08/17 07:28 2 PUFFS Ranitidine HCl (zANTac TAB) 150 mg HS PO 04/04/17 21:00 05/04/17 20:59 04/07/17 20:37 150 MG Heparin Sodium (Porcine) (Heparin 10 Unit/ ml 5 ml Flush) 5 ml PRN PRN FLUSH 04/06/17 03:30 05/06/17 03:29 Ioversol (Optiray 320) 125 ml UD PRN IV 04/06/17 14:00 04/10/17 13:59 Insulin Aspart (novoLOG ASPART) SLIDING SCALE If C... ACHS SC 04/06/17 16:00 05/06/17 15:59 Glucose (Glucose 40% Gel) 15-30 GRAMS 15 GRAMS... UD PRN PO 04/06/17 14:15 05/06/17 14:14 Glucose (Glucose Chew Tab) 4-8 Tablets 4 Tabl... UD PRN PO 04/06/17 14:15 05/06/17 14:14 Dextrose (Dextrose 50% 50ML Syringe) 25-50ML OF 50% DW IV FOR... UD PRN IV 04/06/17 14:15 05/06/17 14:14 Glucagon (Glucagon Inj) 1 mg UD PRN SQ 04/06/17 14:15 05/06/17 14:14 Enteral Nutritional Formula (Boost Glucose Control) 1 can BID@1000,2100 PO 04/06/17 21:00 05/06/17 20:59 04/07/17 20:36 1 CAN Metoprolol Succinate (Toprol Xl Tab) 50 mg QAM PO 04/08/17 09:00 05/08/17 08:59 04/08/17 07:29 50 MG Lisinopril (Zestril Tab) 10 mg QAM PO 04/08/17 09:00 05/08/17 08:59 Future Hold 04/08/17 07:29 10 MG Metoclopramide HCl (Reglan Tab) 5 mg BID@0700,1600 PO 04/07/17 17:30 05/07/17 17:29 04/08/17 06:42 5 MG Furosemide 40 mg/ Syringe 4 ml @ 4 mls/min Q6 IV 04/08/17 12:00 05/08/17 11:59 04/08/17 11:23 4 MLS/MIN Morphine Sulfate (MoRPHine SULFATE INJ) 1 mg Q4 PRN IV 04/08/17 08:30 04/22/17 08:29 Lactobacillus Acidophilus (Floranex Tab) 4 tab TIDM PO 04/08/17 16:45 05/08/17 16:44 Diphenoxylate HCl/ Atropine (Lomotil Tab) 1 tab Q4 PRN PO 04/08/17 12:30 05/08/17 12:29 Doxycycline Hyclate (Vibramycin Cap) 100 mg BID PO 04/08/17 21:00 04/18/17 20:59 Warfarin Sodium (Coumadin Tab) 2 mg DAILY@16 PO 04/08/17 16:00 05/08/17 15:59 Objective Vital Signs Date Time Temp Pulse Resp B/P (MAP) Pulse Ox O2 Delivery O2 Flow Rate FiO2 04/08/17 12:00 Room Air 04/08/17 11:54 36.8 89 16 117/69 (85) 96 04/08/17 08:00 Room Air 04/08/17 07:59 36.7 104 18 124/78 (93) 99 04/08/17 04:00 Room Air 04/08/17 03:49 36.7 108 16 105/71 (82) 94 Room Air 04/08/17 00:01 Room Air 04/07/17 23:27 36.7 114 18 114/79 (91) 94 Room Air 04/07/17 20:18 36.6 125 20 122/77 (92) 94 Room Air 04/07/17 20:00 95 Room Air 04/07/17 17:36 137 141/93 Physical Exam General Appearance: WD/WN, no apparent distress Eyes: normal inspection, EOMI, sclerae normal ENT: normal ENT inspection, hearing grossly normal, pharynx normal Neck: supple, no adenopathy, no JVD, trachea midline Respiratory/Chest: chest non-tender, no respiratory distress, no accessory muscle use, + decreased breath sounds, + rales (bibasilar) Cardiovascular: no gallop, no JVD, no murmur, + tachycardia Abdomen: normal bowel sounds, non tender, soft, no organomegaly Extremities: normal range of motion, non-tender, normal inspection, no calf tenderness, pelvis stable, + pedal edema Neurologic/Psychiatric: slitter and rewinder II-XII nml as tested, alert, normal mood/affect, oriented x 3, + motor weakness (generalized) Skin: + pertinent finding (bilateraly breast wounds, left wound with wound vac) Laboratory Results Last 24 Hours Test 04/07/17 20:20 04/08/17 06:40 04/08/17 07:35 04/08/17 11:26 Bedside Glucose 153 mg/dl 105 mg/dl 110 mg/dl White Blood Count 6.41 K/uL Red Blood Count 3.57 M/uL Hemoglobin 9.9 g/dL Hematocrit 31.0 % Mean Corpuscular Volume 86.8 fL Mean Corpuscular Hemoglobin 27.7 pg Mean Corpuscular Hemoglobin Concent 31.9 g/dl Platelet Count 196 K/uL Mean Platelet Volume 9.1 fL Neutrophils (%) (Auto) 76.0 % Lymphocytes (%) (Auto) 11.2 % Monocytes (%) (Auto) 8.7 % Eosinophils (%) (Auto) 3.3 % Basophils (%) (Auto) 0.2 % Neutrophils # (Auto) 4.87 K/uL Lymphocytes # (Auto) 0.72 K/uL Monocytes # (Auto) 0.56 K/uL Eosinophils # (Auto) 0.21 K/uL Basophils # (Auto) 0.01 K/uL RDW Standard Deviation 51.4 fL RDW Coefficient of Variation 16.0 % Immature Granulocyte % (Auto) 0.6 % Immature Granulocyte # (Auto) 0.04 K/uL Prothrombin Time 17.4 SECONDS Prothromb Time International Ratio 1.7 Activated Partial Thromboplast Time 34.1 SECONDS Partial Thromboplastin Ratio 1.3 Sodium Level 137 mmol/L Potassium Level 3.7 mmol/L Chloride Level 105 mmol/L Carbon Dioxide Level 22 mmol/L Anion Gap 10.0 mmol/L Blood Urea Nitrogen 21 mg/dl Creatinine 1.55 mg/dl Est Creatinine Clear Calc Drug Dose 28.2 ml/min Estimated GFR () 36.5 Estimated GFR (Non- 31.5 BUN/Creatinine Ratio 13.4 Random Glucose 117 mg/dl Calcium Level 8.2 mg/dl Phosphorus Level 4.3 mg/dl Magnesium Level 2.1 mg/dl Troponin I 0.286 ng/ml Assessment and Plan This patient is a 81 y/o female with a history of right breast lobular carcinoma , HTN, HLD, CAD, COPD, CKD stage II-III, diet controlled DM II, h/o multiple PE' s on chronic anticoagulation and GERD who presented to the ED on 04/04 with hypotension and malaise. She remained hypotensive despite fluid boluses and was admitted to the ICU in case of need for vasopressors. CXR with left base atelectasis, otherwise negative on admission. EKG no ischemic changes. WBC 14.18. Creatinine 2.33. POC lactic acid 2.81. LFTs elevated. INR over 8, had been just 2.0 on 04/01. - Septic shock, multisystem organ failure, POA, thought to be secondary to skin wound LA now normal, LFT improving, AGUSTIN resolved, BP stable off of pressors, transferred out of ICU Blood and urine cultures negative, no wound cultures obtained and at this point likely negative appreciate ID note, continue broad spectrum abx for now given lack of culture results, day #5 Vanco and Zosyn can switch to Doxycycline 100mg BID on discharge, will actually do this now to limit fluids given since she is diuresing volume overloaded at this point with aggressive hydration initially, slightly tachycardic with fluid mobilization - AGUSTIN: due to septic shock, prerenal resolved, Cr down to 1.01 yesterday, back up to 1.5 today, likely from lasix use will repeat BMP tomorrow AM - Acute diastolic heart failure, dyspnea, no hypoxia due to volume overload from aggressive hydration during sepsis, resuscitation Lasix 40mg IV given twice today, diuresing well will cut back to 40mg IV q12 given the slight rise in Cr to 1.5 - H/o PE, on Coumadin, markedly elevated INR d/w patient today, has had issues with keeping INR consistent, very sensitive perhaps she could consider Lovenox 1.5mg/kg daily instead, may be more provide benefit in setting of malignancy INR 1.7 today, resume Coumadin 2mg today, if INR still subtherapeutic tomorrow then give Lovenox - Metastatic breast cancer to LNs-started chemotherapy but due to infiltrative injury around her port, this was discontinued. Had indeterminate pulm nodules on CT Chest in 12/2016 Has been receiving XRT to the right breast and now with radiation h[facility] Oncology consultation appreciated, may start anti-hormonal treatment soon CT chest on 04/06 to re-assess pulmonary nodules: could not be accurately assessed due to effusions and atelectasis - CAD s/p CABG in 1994, HTN, HLD--no acute issues, hypotension now resolved Holding ASA due to coagulopathy, can resume tomorrow if INR still below 3 hold Lisinopril again due to Cr of 1.5, continue Toprol at 50mg daily Continue Crestor 40 mg PO qd COPD--stable, no exacerbation -Continue Flovent BID DM II, diet controlled- HgbA1c 5.7 glucose in good control -Continue Accu-Cheks, SSI GERD -Continue Protonix and Zantac DVT prophylaxis -INR 2.9 -MT mohamud and SCDs Code Status -Level I, FULL RESUSCITATION STATUS. Pt states she wants 1 good attempt at resuscitation, but no more than that and nothing prolonged Continued [facility] stay due to: multiple IV medications needed, home environment unsafe for pt
[2017-04-08] MEDS: LACTOBACILLUS ACIDOPHILUS (FLORANEX) TAB PO SCH (16:33)
[2017-04-08] MEDS: WARFARIN SOD 2 MG TAB PO SCH (16:34)
--- NOTE | 2017-04-08 17:41 | ECHOCARDIOGRAM REPORT ---
*NOTICE TO RECEIVING LIBERTARIAN AGENCY This information is strictly Confidential and protected under [place] law. [place] law prohibits you from making any further disclosure of this information unless further disclosure is expressly permitted by the written consent of the person to whom it pertains or is authorized by law. A general authorization for the release of medical or other information is not sufficient for this purpose. Hospital accepts no responsibility if the information is made available to any other person, INCLUDING THE PATIENT. Interpretation Summary * Name: NANCY STARKS Study Date: 04/08/2017 09:26 AM BP: 124/78 mmHg * Patient Location: .2T\S\E219\S\1 HR: 106 * : 1935 (M/d/yyyy) Gender: Female Height: 60 in * Age: 81 yrs Ethnicity: CA Weight: 184 lb * Ordering Physician: Jean Paul Lagunas * Referring Physician: UNKNOWN * Performed By: Elisa Reynaga RDCS * * Reason For Study: ACUTE HEART FAILURE, EVALUATE LV EF * BSA: 1.8 m2 * -- Conclusions -- * Limited study * Left ventricular systolic function is severely reduced. * There is severe global hypokinesis of the left ventricle. * Ejection Fraction = 20-25%. Procedure Details * A contrast injection of Definity was performed to improve assessment of LV function. * One vial of Definity ultrasound contrast was diluted in normal saline to a total volume of 10 ml. A total of '2' ml of solution was administered during imaging. * Lot # [id number] of Definity utilized for procedure. * Expiration date 1 MAY 16. * The attending nurse who injected the contrast agent was DIANA BARBOZA. * FOLLOW UP FOR LV FUNCTION, RADIATION COSTELLO, WOUND VAC NOT ABLE TO GET A PARASTERNAL VIEW Left Ventricle * The left ventricle is borderline dilated. * There is normal left ventricular wall thickness. * Left ventricular systolic function is severely reduced. * Ejection Fraction = 20-25%. * There is severe global hypokinesis of the left ventricle. Right Ventricle * The right ventricle is not well visualized. Atria * The left atrium is mildly dilated. * The right atrium is mildly dilated. Mitral Valve * The mitral valve is grossly normal. Tricuspid Valve * The tricuspid valve is not well visualized. Aortic Valve * The aortic valve is not well visualized. * The aortic valve opens well. Pulmonic Valve * The pulmonic valve is not well visualized. Great Vessels * The aortic root is normal size. Pericardium/Pleural * There is no pericardial effusion. MMode 2D Measurements and Calculations LVAd ap4 38.2 cm\S\2 LVLd ap4 9.0 cm EDV(MOD-sp4) 137.1 ml EDV(sp4-el) 137.3 ml LVAs ap4 30.9 cm\S\2 LVLs ap4 8.2 cm ESV(MOD-sp4) 98.7 ml ESV(sp4-el) 99.5 ml EF(MOD-sp4) 28.0 % EF(sp4-el) 27.5 % LVAd ap2 37.9 cm\S\2 LVLd ap2 8.1 cm EDV(MOD-sp2) 148.6 ml EDV(sp2-el) 151.8 ml LVAs ap2 31.7 cm\S\2 LVLs ap2 7.3 cm ESV(MOD-sp2) 112.2 ml ESV(sp2-el) 116.8 ml EF(MOD-sp2) 24.4 % EF(sp2-el) 23.1 % LVLd %diff -12.15 % EDV(MOD-bp) 149.2 ml LVLs %diff -11.73 % ESV(MOD-bp) 109.5 ml EF(MOD-bp) 26.6 % SV(MOD-sp4) 38.4 ml SI(MOD-sp4) 21.3 ml/m\S\2 SV(MOD-sp2) 36.3 ml SI(MOD-sp2) 20.2 ml/m\S\2 SV(MOD-bp) 39.8 ml SI(MOD-bp) 22.1 ml/m\S\2 SV(sp4-el) 37.7 ml SI(sp4-el) 20.9 ml/m\S\2 SV(sp2-el) 35.0 ml SI(sp2-el) 19.4 ml/m\S\2
[2017-04-08] MEDS: ROSUVASTATIN CALCIUM 20 MG TAB PO SCH (20:58)
[2017-04-08] MEDS: DOXYCYCLINE HYCLATE 100 MG CAP PO SCH (20:58)
[2017-04-08] MEDS: RANITIDINE HCL 150 MG TAB PO SCH (20:58)
[2017-04-08] MEDS: FUROSEMIDE INJ 40 MG in SYRINGE 0 ML IV SCH (20:59)
[2017-04-09 04:05] VITALS: BP 121/74; PULSE 111; TEMP 36.7; O2SAT 93
[2017-04-09 05:50] LABS: BASO % 0.4 %; BASO ABS # 0.02 K/uL (0-0.2); EOS % 2.9 %; EOS ABS # 0.16 K/uL (0-0.5); HEMATOCRIT 29.2 % (37-47); HEMOGLOBIN 9.6 g/dL (12.0-16.0); IG# 0.08 K/uL (0.00-0.02); LYMPH % 9.8 %; LYMPH ABS # 0.55 K/uL (1.2-3.4); MEAN CELL VOLUME 86.1 fL (80-100); MEAN CORPUSCULAR HEMOGLOBIN 28.3 pg (25-34); MEAN CORPUSCULAR HGB CONC 32.9 g/dl (32-36); MEAN PLATELET VOLUME 9.3 fL (7.4-10.4); MONO % 9.3 %; MONO ABS # 0.52 K/uL (0.11-0.59); NEUT % 76.2 %; NEUT ABS # 4.28 K/uL (1.4-6.5); PLATELET COUNT 168 K/uL (130-400); RED CELL DISTRIBUTION WIDTH SD 50.6 fL (36.4-46.3); WHITE BLOOD COUNT 5.61 K/uL (4.8-10.8)
[2017-04-09 06:01] LABS: INR 2.3 (0.9-1.1); PTT PATIENT 35.9 SECONDS (21.0-31.0)
[2017-04-09 06:27] LABS: CALCIUM 7.7 mg/dl (8.5-10.1); CREATININE 2.31 mg/dl (0.60-1.20); POTASSIUM 3.7 mmol/L (3.5-5.1)
[2017-04-09 06:55] VITALS: BP 117/77; PULSE 109; TEMP 36.5; O2SAT 94
[2017-04-09] MEDS: METOPROLOL SUCC 50MG EXT REL TAB PO SCH ×4 (08:23→20:02)
[2017-04-09] MEDS: DOXYCYCLINE HYCLATE 100 MG CAP PO SCH ×2 (08:23→20:02)
[2017-04-09] MEDS: LACTOBACILLUS ACIDOPHILUS (FLORANEX) TAB PO SCH ×3 (08:24→16:09)
[2017-04-09] MEDS: METOCLOPRAMIDE HCL 5 MG TAB PO SCH ×2 (08:24→16:08)
[2017-04-09] MEDS: FLUTICASONE HFA 110MCG INHALER INH SCH ×2 (08:24→20:03)
[2017-04-09] MEDS: PANTOprazole SOD 40 MG TAB PO SCH (08:24)
[2017-04-09] MEDS: FUROSEMIDE INJ 40 MG in SYRINGE 0 ML IV SCH (08:24)
[2017-04-09] MEDS: INSULIN ASPART 100 UNITS/ML 3 ML PEN SC SCH ×4 (08:25→20:17)
[2017-04-09] MEDS: BOOST GLUCOSE CONTROL PO SCH ×2 (08:26→20:03)
[2017-04-09] MEDS: ASPIRIN 81 MG ECTAB PO SCH (09:41)
[2017-04-09] MEDS: ONDANSETRON INJ 2 MG/ML 2 ML VIAL IV PRN ×2 (09:42→16:45)
[2017-04-09 11:21] VITALS: BP 116/80; PULSE 109; TEMP 36.5; O2SAT 93
--- NOTE | 2017-04-09 13:15 | Nephrology Consultation ---
Nephrology Consultation Date & Providers Date of Consultation: Apr 09, 2017. Primary Care Provider: Lucian Noe M.D. Referring Provider: Reason for Consultation Evaluation and management for acute kidney injury. History of Present Illness Mrs. vale is 81-year-old female with past medical history significant for breast cancer, hypertension admitted to the hospital with hypertension and questionable sepsis with a skin infection. He has nephrologic consult was requested as patient developed acute kidney injury. Electronic medical records including labs and imaging are reviewed in detail during patient's visit. Patient's family was a row and a during the patient's visit. presented to the hospital from her oncologist office as she was found to have hypotension and overall feeling weak and tired for several days. She has history of breast cancer diagnosed in August 2016, treated with lumpectomy followed by chemotherapy with a [place] seen in a spell again and Taxane and radiation. The she had chemotherapy infiltration under skin causing skin necrosis and subsequent infection. Also had superficial skin burn from radiation therapy. She has been following with [facility] and has wound VAC in place. On admission she was empirically started on vancomycin and Zosyn which is now discontinued and started on doxycycline orally. She has no known history of chronic kidney disease baseline creatinine has been at around 1 or less. On admission she was found to have acute kidney injury creatinine was 2.5 which rapidly improve at to her baseline over 2 days. However her renal function again started to worsen since yesterday, this morning her creatinine increased to 2.3. She has been having decent urine in urine output and remain non-oliguric. Electrolyte has been acceptable. Urinalysis on admission was negative for hematuria proteinuria however urinalysis today was positive for proteinuria has significant hematuria as well as pyuria. She was persistently hypotensive on admission which currently resolved and her blood pressure has a stable over last 2-3 days. No known history of other nephrotoxic medication exposure, she has been on lisinopril which was discontinued yesterday. Initially she received IV hydration which was discontinued as well. History was found to be volume overloaded and started on Lasix. Echo done on 04/08/2017 showed LV dysfunction with ejection fraction 20-25 percent, prior echo a year ago showed normal ejection fraction. Allergies Coded Allergies: Nitroglycerin (Verified Allergy, Intermediate, BP Decreases, HR Increases , 04/04/17) REACTION WITH SUBLINGUAL PER RECORDS Inpatient Medications Current Inpatient Medications Medications (Trade) Dose Ordered Sig/Sendy Route Start Time Stop Time Status Last Admin Dose Admin Acetaminophen (Tylenol Tab) 650 mg Q4H PRN PO 04/04/17 18:30 05/04/17 18:29 Al Hydrox/Mg Hydrox/Simethicone (Maalox Max Susp) 15 ml Q4H PRN PO 04/04/17 18:30 05/04/17 18:29 Magnesium Hydroxide (Milk Of Magnesia Susp) 30 ml Q12H PRN PO 04/04/17 18:30 05/04/17 18:29 Ondansetron HCl (Zofran Inj) 4 mg Q6H PRN IV 04/04/17 18:30 05/04/17 18:29 04/09/17 09:42 4 MG Polyethylene (Miralax Powder Packet) 17 gm DAILY PRN PO 04/04/17 18:30 05/04/17 18:29 Albuterol (Ventolin Hfa Inhaler) 1 puffs Q4H PRN INH 04/04/17 18:30 05/04/17 18:29 Pantoprazole Sodium (Protonix Tab) 40 mg QAM PO 04/05/17 09:00 05/05/17 08:59 04/09/17 08:24 40 MG Rosuvastatin Calcium (Crestor Tab) 40 mg HS PO 04/04/17 21:00 05/04/17 20:59 04/08/17 20:58 40 MG Fluticasone Propionate (Flovent Hfa 110MCG Inhaler) 2 puffs BID INH 04/04/17 21:00 05/04/17 20:59 04/09/17 08:24 2 PUFFS Ranitidine HCl (zANTac TAB) 150 mg HS PO 04/04/17 21:00 05/04/17 20:59 04/08/17 20:58 150 MG Heparin Sodium (Porcine) (Heparin 10 Unit/ ml 5 ml Flush) 5 ml PRN PRN FLUSH 04/06/17 03:30 05/06/17 03:29 Ioversol (Optiray 320) 125 ml UD PRN IV 04/06/17 14:00 04/10/17 13:59 Insulin Aspart (novoLOG ASPART) SLIDING SCALE If C... ACHS SC 04/06/17 16:00 05/06/17 15:59 Glucose (Glucose 40% Gel) 15-30 GRAMS 15 GRAMS... UD PRN PO 04/06/17 14:15 05/06/17 14:14 Glucose (Glucose Chew Tab) 4-8 Tablets 4 Tabl... UD PRN PO 04/06/17 14:15 05/06/17 14:14 Dextrose (Dextrose 50% 50ML Syringe) 25-50ML OF 50% DW IV FOR... UD PRN IV 04/06/17 14:15 05/06/17 14:14 Glucagon (Glucagon Inj) 1 mg UD PRN SQ 04/06/17 14:15 05/06/17 14:14 Enteral Nutritional Formula (Boost Glucose Control) 1 can BID@1000,2100 PO 04/06/17 21:00 05/06/17 20:59 04/07/17 20:36 1 CAN Metoprolol Succinate (Toprol Xl Tab) 50 mg QAM PO 04/08/17 09:00 05/08/17 08:59 04/09/17 08:23 50 MG Lisinopril (Zestril Tab) 10 mg QAM PO 04/08/17 09:00 05/08/17 08:59 Future Hold 04/08/17 07:29 10 MG Metoclopramide HCl (Reglan Tab) 5 mg BID@0700,1600 PO 04/07/17 17:30 05/07/17 17:29 04/09/17 08:24 5 MG Morphine Sulfate (MoRPHine SULFATE INJ) 1 mg Q4 PRN IV 04/08/17 08:30 04/22/17 08:29 Lactobacillus Acidophilus (Floranex Tab) 4 tab TIDM PO 04/08/17 16:45 05/08/17 16:44 04/09/17 11:14 4 TAB Diphenoxylate HCl/ Atropine (Lomotil Tab) 1 tab Q4 PRN PO 04/08/17 12:30 05/08/17 12:29 Doxycycline Hyclate (Vibramycin Cap) 100 mg BID PO 04/08/17 21:00 04/18/17 20:59 04/09/17 08:23 100 MG Warfarin Sodium (Coumadin Tab) 2 mg DAILY@16 PO 04/08/17 16:00 05/08/17 15:59 1/12/18 16:34 2 MG Furosemide 40 mg/ Syringe 4 ml @ 4 mls/min Q12 IV 04/08/17 21:00 05/08/17 11:59 04/09/17 08:24 4 MLS/MIN Aspirin (Ecotrin Tab) 81 mg QAM PO 04/09/17 09:00 05/09/17 08:59 04/09/17 09:41 81 MG Family History Cancer Diabetes mellitus Myocardial infarction Social History Smoking Status: Former Smoker Smokeless Tobacco Use: No Alcohol Use: none Drug Use: none Marital Status: Housing Status: lives alone Occupation: retired Review of Systems A complete review of systems was performed. Pertinent positives are noted above. All other systems are negative. Physical Exam Date Time Temp Pulse Resp B/P (MAP) Pulse Ox O2 Delivery O2 Flow Rate FiO2 04/09/17 11:21 36.5 109 24 116/80 (92) 93 Room Air 04/09/17 08:00 Room Air 04/09/17 06:55 36.5 109 18 117/77 (90) 94 Room Air 04/09/17 04:05 36.7 111 22 121/74 (90) 93 Room Air 04/09/17 04:00 Room Air 04/09/17 00:00 Room Air 04/08/17 23:40 36.7 114 23 127/84 (98) 92 Room Air 04/08/17 21:00 94 Room Air 04/08/17 20:16 36.6 114 21 128/79 (95) 93 Room Air 04/08/17 20:00 Room Air 04/08/17 16:42 37.0 114 20 119/69 (86) 95 04/08/17 16:00 Room Air 04/08/17 12:00 Room Air 04/08/17 11:54 36.8 89 16 117/69 (85) 96 GENERAL: Elderly female, AAA x 3, pleasant, ill-appearing, not in any distress. HEENT: Atraumatic, normocephalic. NECK: Supple, no JVD, no carotid bruit appreciated. ENT: No sinus tenderness CHEST: Wound VAC in place MOUTH and THROAT: Moist oral mucosa, no oral ulcer or pharyngeal erythema RESPIRATORY: Normal breathing efforts, no accessory muscle use,bibasilar rales CARDIOVASCULAR: S1, S2 normal, rate rhythm regular. ABDOMEN: Soft, nontender, positive bowel sound. MUSCULOSKELETAL: No CVA tenderness. No joint swelling, erythema or tenderness. Normal range of motion. SKIN: No skin rash EXTREMITY: No lower extremity edema NEURO: No gross focal neurological deficit, speech fluent. PSYCHIATRY: Normal mood and judgment Laboratory Results Last 24 Hours Test 04/08/17 16:13 04/08/17 20:19 04/09/17 05:29 04/09/17 06:29 Bedside Glucose 159 mg/dl 125 mg/dl 98 mg/dl White Blood Count 5.61 K/uL Red Blood Count 3.39 M/uL Hemoglobin 9.6 g/dL Hematocrit 29.2 % Mean Corpuscular Volume 86.1 fL Mean Corpuscular Hemoglobin 28.3 pg Mean Corpuscular Hemoglobin Concent 32.9 g/dl Platelet Count 168 K/uL Mean Platelet Volume 9.3 fL Neutrophils (%) (Auto) 76.2 % Lymphocytes (%) (Auto) 9.8 % Monocytes (%) (Auto) 9.3 % Eosinophils (%) (Auto) 2.9 % Basophils (%) (Auto) 0.4 % Neutrophils # (Auto) 4.28 K/uL Lymphocytes # (Auto) 0.55 K/uL Monocytes # (Auto) 0.52 K/uL Eosinophils # (Auto) 0.16 K/uL Basophils # (Auto) 0.02 K/uL RDW Standard Deviation 50.6 fL RDW Coefficient of Variation 16.0 % Immature Granulocyte % (Auto) 1.4 % Immature Granulocyte # (Auto) 0.08 K/uL Prothrombin Time 23.4 SECONDS Prothromb Time International Ratio 2.3 Activated Partial Thromboplast Time 35.9 SECONDS Partial Thromboplastin Ratio 1.4 Sodium Level 135 mmol/L Potassium Level 3.7 mmol/L Chloride Level 104 mmol/L Carbon Dioxide Level 24 mmol/L Anion Gap 7.0 mmol/L Blood Urea Nitrogen 26 mg/dl Creatinine 2.31 mg/dl Est Creatinine Clear Calc Drug Dose 18.9 ml/min Estimated GFR () 22.6 Estimated GFR (Non- 19.5 BUN/Creatinine Ratio 11.2 Random Glucose 95 mg/dl Calcium Level 7.7 mg/dl Phosphorus Level 5.0 mg/dl Magnesium Level 2.0 mg/dl Troponin I 0.166 ng/ml Test 04/09/17 09:15 Urine Color DK YELLOW Urine Appearance TURBID Urine pH 5.0 Urine Specific [place] 1.024 Urine Protein 1+ Urine Glucose (UA) NEG Urine Ketones NEG Urine Occult Blood 3+ Urine Nitrite NEG Urine Bilirubin NEG Urine Urobilinogen NEG Urine Leukocyte Esterase SMALL Urine WBC (Auto) 10-30 /hpf Urine RBC (Auto) >30 /hpf Urine Hyaline Casts (Auto) 1-5 /lpf Urine Epithelial Cells (Auto) >30 /lpf Urine Bacteria (Auto) NEG Urine Renal Epithelial Cells /lpf Urine Crystals See comments Urine Pathogenic Casts /lpf Urine Yeast (Auto) Impression (1) Acute renal failure (2) Hypertension Nos (3) Breast cancer (4) Open wound of chest (wall), complicated (5) Anemia Mrs. Vale is a 81-year-old female with history of breast cancer, hypertension admitted to the hospital with questionable sepsis with skin infection. She was admitted to the hospital with the persistent hypotension, sepsis possibly secondary to skin infection. She was empirically started on vancomycin and Zosyn which was discontinued now on doxycycline. She has no known history of chronic kidney disease, On admission she was found to have acute kidney injury, creatinine was 2.5 which eventually improved her baseline of 0.7-0.8. Acute kidney injury was most likely hemodynamically mediated in the setting of persistent hypotension. Renal function improved with IV hydration and hemodynamic stability. However over last 2 days renal function again started to decline creatinine was 2.3 this morning. She was found to be volume overloaded, IV fluid was discontinued and started on IV Lasix since yesterday with improvement in volume status. Vancomycin Zosyn was discontinued. Echo showed ejection fraction 20-25 percent with prior normal ejection fraction. Recurrent acute kidney injury could be due to acute interstitial nephritis from vancomycin however other possibility is hemodynamic injury with low ejection fraction. -unclear etiology for significant drop in EF,? Adriamycin toxicity Recommendations --would continue on Lasix 40 milligram p.o. daily as patient persistently net positive --continue to hold lisinopril, avoid further IV fluid --monitor renal function and urine output closely --if renal function continues to worsen will get an ultrasound --further workup depending on clinical course Thank you for allowing me to participate in your patient's care. It was a pleasure to see Mrs Vale
--- NOTE | 2017-04-09 14:24 | CARDIOLOGY CONSULTATION ---
DATE OF CONSULTATION: 04/09/2017 REFERRING PHYSICIAN: Jean Paul Lagunas DO PRIMARY CARE PHYSICIAN: Lucian Noe MD PRIMARY ELEVATOR ERECTOR HELPER: Rico Alexander DO INDICATIONS: Worsening LV systolic function. HISTORY OF PRESENT ILLNESS: The patient is an extremely complex 81-year-old female with complex past and recent history. Her history is notable for underlying ischemic heart disease and is status post coronary bypass grafting following prior myocardial infarction in 1998, ultimately undergone 2-vessel coronary bypass grafting in February 2000, receiving a CAMACHO graft to the LAD and a radial graft to the circumflex. Followup cardiac catheterization demonstrated in 2005 occluded graft to the circumflex, 40% right coronary artery stenosis and patent CAMACHO graft. She carries a history of prior myocardial infarction and [id number] LV dysfunction in the past. She has also undergone evaluation and treatment for pulmonary embolus in 2014. Her most recent history is notable for difficulties with breast carcinoma with complex management issues including nonhealing chest ulceration in the site of chemotherapy and infiltration and radiation burn to the right breast. She was hospitalized this admission with signs and symptoms of acute sepsis though without bacterial infection, documented with hypotension, tachycardia and physical evidence of dehydration. The patient received large volume resuscitation as appropriate and antibiotic therapy. The patient did not require significant pressor support. Antihypertensives were held due to hypotension as well as acute renal insufficiency documented on presentation. The patient initially began demonstrating hemodynamic improvement within the last 48 hours, began manifesting signs or symptoms of volume overload and congestive heart failure by x-ray, and moderate respiratory distress. Echocardiogram performed on 04/08/2017 demonstrated significant decline in overall LV function, EF 20% with severe global hypokinesis. The patient is referred now for further management. The patient has received additional diuretics since initial echocardiogram was performed with modest urinary output, but once again decline in overall renal function. She denies specific chest pains. Notes no melena or hematochezia. She has a femoral catheter in place and a Cruz in place, but the patient is remaining in bed at all times. She has been appropriately anticoagulated throughout her hospital stay. Her INR was supratherapeutic on presentation, now therapeutic, she notes up until hospitalization; generally denying any symptoms of chest pain or cardiac decline, noted no tachypalpitations, ongoing issues with breast carcinoma, management had been difficult. She notes marked anorexia and nausea, had nausea this morning, poor p.o. intake for several weeks. REVIEW OF SYSTEMS: Otherwise negative. ALLERGIES: NITROGLYCERIN. MEDICATIONS: Prior to hospitalization were albuterol inhaler, aspirin 81 mg per day, calcium carbonate, lisinopril 10 mg p.o. daily, Reglan p.r.n. nausea, Topral XL 100 mg p.o. daily, Protonix 40 mg p.o. daily, MiraLax p.r.n., Zantac 150 mg at bedtime, Crestor 40 mg daily, warfarin 2 mg p.o. daily. PAST SURGICAL HISTORY: Notable for prior knee surgery, past right breast partial mastectomy with axillary dissection, prior port implantation. FAMILY HISTORY: Noncontributory. SOCIAL HISTORY: The patient is a nonsmoker, nondrinker currently. PHYSICAL EXAMINATION: VITAL SIGNS: This morning, heart rate is 110, blood pressure is 116/80. HEENT: Normocephalic and atraumatic. NECK: Thin. There is mild jugular venous distention at 30 degrees. LUNGS: Reveal markedly diminished breath sounds at the bases, fair aeration apically. Chest reveals ulceration on the left and right side of the chest. Bandages in place. Port in place. CARDIOVASCULAR: Regular with distant heart sounds. A grade 1/6 systolic murmur. There is no S3 gallop audible. ABDOMEN: Soft. EXTREMITIES: Reveal 1-2+ lower extremity edema. There is a venous catheter in the right femoral vein. There is no palpable cord or Homans sign. LABORATORY DATA: Laboratory study this morning, white cell count is 5.6, hemoglobin is 9.6, platelet count is 168,000. Sodium is 135, potassium is 3.7, chloride is 104, bicarbonate is 24, BUN is 26, creatinine is 2.3. Troponins are elevated at 0.228 and 0.166 serially. EKG demonstrates sinus tachycardia, prior anterior infarct without acute changes. Echocardiogram per report and by personal review reveals diffuse LV dysfunction with only basilar structures juancarlos, ejection fraction of 20% with severe global hypokinesis. Further review of laboratory studies, INR is 2.3. Chest x-ray on April 06 and April 08 demonstrates increased interstitial markings consistent with congestive heart failure and small bilateral pleural effusions. I's and O's reflect at least 4-6 liters of positive bowel since admission with the patient presenting in the setting of acute sepsis and hypotension. IMPRESSION: A complex 81-year-old female as outlined above, who presented with signs and symptoms of clinical sepsis, hypotension and acute renal insufficiency. She has responded to fluid resuscitation and antibiotic therapies with positive cultures. Examination by echocardiogram on the day prior to this consultation demonstrated diffuse left ventricular dysfunction, ejection fraction 20% with only basilar structures juancarlos and no distinct segmental features. 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 Review of laboratory study does demonstrate marked hypoalbuminemia complicating fluid retention issues. RECOMMENDATIONS: The patient has received a dose of furosemide this morning. We will resume furosemide IV tomorrow unless acute dyspnea develops. We will increase Toprol-XL to 25 mg 4 times per day to a maximum dose of 100 mg per day reflecting patient's prehospital dosing. Lisinopril will be continued to be held due to worsening renal function. A followup metabolic panel ordered in a.m. Nutritional issues are contributing to the patient's issues significantly with marked hypoalbuminemia. We will continue to follow the patient in the hospital.
--- NOTE | 2017-04-09 14:59 | Progress Note ---
Subjective Date of Service: Apr 09, 2017. Subjective Pt evaluation today including: conversation w/ patient, conversation w/ family , physical exam, lab review, review of studies, conversation w/ senior internet sales consultant, review of inpatient medication list Pain: no pain PO Intake: poor Voiding: ortiz catheter in place patient had difficulty breathing this AM, mild distress, improved after Lasix given reviewed reports, echo showing EF of 20% discussed with Dr. Mcdonald, going to give lopressor 100mg qid, hold on Lasix labs reviewed, Cr up to 2.3 from diuresis, appreciate input from Dr. Donis Problem List Medical Problems: (1) Acute renal failure Status: Acute (2) Bilateral pulmonary embolism Status: Chronic (3) Elevated LFTs Status: Acute (4) Hematuria Status: Acute (5) Orthostatic hypertension Status: Acute (6) Sepsis Status: Acute (7) Sepsis affecting skin Status: Acute (8) Septic shock Status: Acute (9) Supratherapeutic INR Status: Acute (10) Supratherapeutic INR Status: Acute Review of Systems Constitutional: + weakness, + fatigue Respiratory: + shortness of breath, + dyspnea on exertion Cardiac: + edema Abdomen: + diarrhea Neurologic: + weakness Skin: + rash All Other Systems: Reviewed and Negative Medications Current Inpatient Medications Medications (Trade) Dose Ordered Sig/Sendy Route Start Time Stop Time Status Last Admin Dose Admin Acetaminophen (Tylenol Tab) 650 mg Q4H PRN PO 04/04/17 18:30 05/04/17 18:29 Al Hydrox/Mg Hydrox/Simethicone (Maalox Max Susp) 15 ml Q4H PRN PO 04/04/17 18:30 05/04/17 18:29 Magnesium Hydroxide (Milk Of Magnesia Susp) 30 ml Q12H PRN PO 04/04/17 18:30 05/04/17 18:29 Ondansetron HCl (Zofran Inj) 4 mg Q6H PRN IV 04/04/17 18:30 05/04/17 18:29 04/09/17 09:42 4 MG Polyethylene (Miralax Powder Packet) 17 gm DAILY PRN PO 04/04/17 18:30 05/04/17 18:29 Albuterol (Ventolin Hfa Inhaler) 1 puffs Q4H PRN INH 04/04/17 18:30 05/04/17 18:29 Pantoprazole Sodium (Protonix Tab) 40 mg QAM PO 04/05/17 09:00 05/05/17 08:59 04/09/17 08:24 40 MG Rosuvastatin Calcium (Crestor Tab) 40 mg HS PO 04/04/17 21:00 05/04/17 20:59 04/08/17 20:58 40 MG Fluticasone Propionate (Flovent Hfa 110MCG Inhaler) 2 puffs BID INH 04/04/17 21:00 05/04/17 20:59 04/09/17 08:24 2 PUFFS Ranitidine HCl (zANTac TAB) 150 mg HS PO 04/04/17 21:00 05/04/17 20:59 04/08/17 20:58 150 MG Heparin Sodium (Porcine) (Heparin 10 Unit/ ml 5 ml Flush) 5 ml PRN PRN FLUSH 04/06/17 03:30 05/06/17 03:29 Ioversol (Optiray 320) 125 ml UD PRN IV 04/06/17 14:00 04/10/17 13:59 Insulin Aspart (novoLOG ASPART) SLIDING SCALE If C... ACHS SC 04/06/17 16:00 05/06/17 15:59 Glucose (Glucose 40% Gel) 15-30 GRAMS 15 GRAMS... UD PRN PO 04/06/17 14:15 05/06/17 14:14 Glucose (Glucose Chew Tab) 4-8 Tablets 4 Tabl... UD PRN PO 04/06/17 14:15 05/06/17 14:14 Dextrose (Dextrose 50% 50ML Syringe) 25-50ML OF 50% DW IV FOR... UD PRN IV 04/06/17 14:15 05/06/17 14:14 Glucagon (Glucagon Inj) 1 mg UD PRN SQ 04/06/17 14:15 05/06/17 14:14 Enteral Nutritional Formula (Boost Glucose Control) 1 can BID@1000,2100 PO 04/06/17 21:00 05/06/17 20:59 04/07/17 20:36 1 CAN Lisinopril (Zestril Tab) 10 mg QAM PO 04/08/17 09:00 05/08/17 08:59 Future Hold 04/08/17 07:29 10 MG Metoclopramide HCl (Reglan Tab) 5 mg BID@0700,1600 PO 04/07/17 17:30 05/07/17 17:29 04/09/17 08:24 5 MG Morphine Sulfate (MoRPHine SULFATE INJ) 1 mg Q4 PRN IV 04/08/17 08:30 04/22/17 08:29 Lactobacillus Acidophilus (Floranex Tab) 4 tab TIDM PO 04/08/17 16:45 05/08/17 16:44 04/09/17 11:14 4 TAB Diphenoxylate HCl/ Atropine (Lomotil Tab) 1 tab Q4 PRN PO 04/08/17 12:30 05/08/17 12:29 Doxycycline Hyclate (Vibramycin Cap) 100 mg BID PO 04/08/17 21:00 04/18/17 20:59 04/09/17 08:23 100 MG Warfarin Sodium (Coumadin Tab) 2 mg DAILY@16 PO 04/08/17 16:00 05/08/17 15:59 04/08/17 16:34 2 MG Furosemide 40 mg/ Syringe 4 ml @ 4 mls/min Q12 IV 04/08/17 21:00 05/08/17 11:59 Future Hold 04/09/17 08:24 4 MLS/MIN Aspirin (Ecotrin Tab) 81 mg QAM PO 04/09/17 09:00 05/09/17 08:59 04/09/17 09:41 81 MG Metoprolol Succinate (Toprol Xl Tab) 25 mg QID PO 04/09/17 13:00 05/08/17 08:59 04/09/17 13:32 25 MG Objective Vital Signs Date Time Temp Pulse Resp B/P (MAP) Pulse Ox O2 Delivery O2 Flow Rate FiO2 04/09/17 12:00 Room Air 04/09/17 11:21 36.5 109 24 116/80 (92) 93 Room Air 04/09/17 08:00 Room Air 04/09/17 06:55 36.5 109 18 117/77 (90) 94 Room Air 04/09/17 04:05 36.7 111 22 121/74 (90) 93 Room Air 04/09/17 04:00 Room Air 04/09/17 00:00 Room Air 04/08/17 23:40 36.7 114 23 127/84 (98) 92 Room Air 04/08/17 21:00 94 Room Air 04/08/17 20:16 36.6 114 21 128/79 (95) 93 Room Air 04/08/17 20:00 Room Air 04/08/17 16:42 37.0 114 20 119/69 (86) 95 04/08/17 16:00 Room Air Physical Exam General Appearance: no apparent distress, + obese Eyes: normal inspection, EOMI, sclerae normal ENT: normal ENT inspection, hearing grossly normal, pharynx normal Neck: supple, no adenopathy, no JVD, trachea midline Respiratory/Chest: chest non-tender, no respiratory distress, no accessory muscle use, + decreased breath sounds, + rales Cardiovascular: no gallop, no JVD, no murmur, + tachycardia Abdomen: normal bowel sounds, non tender, soft, no organomegaly Extremities: normal range of motion, non-tender, normal inspection, no calf tenderness, + pedal edema Neurologic/Psychiatric: turbo generator oiler II-XII nml as tested, no motor/sensory deficits, alert, normal mood/affect, oriented x 3 Skin: + pertinent finding (right breast with radiation hagan, left breast with wound vac) Laboratory Results Last 24 Hours Test 04/08/17 16:13 04/08/17 20:19 04/09/17 05:29 04/09/17 06:29 Bedside Glucose 159 mg/dl 125 mg/dl 98 mg/dl White Blood Count 5.61 K/uL Red Blood Count 3.39 M/uL Hemoglobin 9.6 g/dL Hematocrit 29.2 % Mean Corpuscular Volume 86.1 fL Mean Corpuscular Hemoglobin 28.3 pg Mean Corpuscular Hemoglobin Concent 32.9 g/dl Platelet Count 168 K/uL Mean Platelet Volume 9.3 fL Neutrophils (%) (Auto) 76.2 % Lymphocytes (%) (Auto) 9.8 % Monocytes (%) (Auto) 9.3 % Eosinophils (%) (Auto) 2.9 % Basophils (%) (Auto) 0.4 % Neutrophils # (Auto) 4.28 K/uL Lymphocytes # (Auto) 0.55 K/uL Monocytes # (Auto) 0.52 K/uL Eosinophils # (Auto) 0.16 K/uL Basophils # (Auto) 0.02 K/uL RDW Standard Deviation 50.6 fL RDW Coefficient of Variation 16.0 % Immature Granulocyte % (Auto) 1.4 % Immature Granulocyte # (Auto) 0.08 K/uL Prothrombin Time 23.4 SECONDS Prothromb Time International Ratio 2.3 Activated Partial Thromboplast Time 35.9 SECONDS Partial Thromboplastin Ratio 1.4 Sodium Level 135 mmol/L Potassium Level 3.7 mmol/L Chloride Level 104 mmol/L Carbon Dioxide Level 24 mmol/L Anion Gap 7.0 mmol/L Blood Urea Nitrogen 26 mg/dl Creatinine 2.31 mg/dl Est Creatinine Clear Calc Drug Dose 18.9 ml/min Estimated GFR () 22.6 Estimated GFR (Non- 19.5 BUN/Creatinine Ratio 11.2 Random Glucose 95 mg/dl Calcium Level 7.7 mg/dl Phosphorus Level 5.0 mg/dl Magnesium Level 2.0 mg/dl Troponin I 0.166 ng/ml Test 04/09/17 09:15 04/09/17 11:09 Urine Color DK YELLOW Urine Appearance TURBID Urine pH 5.0 Urine Specific [place] 1.024 Urine Protein 1+ Urine Glucose (UA) NEG Urine Ketones NEG Urine Occult Blood 3+ Urine Nitrite NEG Urine Bilirubin NEG Urine Urobilinogen NEG Urine Leukocyte Esterase SMALL Urine WBC (Auto) 10-30 /hpf Urine RBC (Auto) >30 /hpf Urine Hyaline Casts (Auto) 1-5 /lpf Urine Epithelial Cells (Auto) >30 /lpf Urine Bacteria (Auto) NEG Urine Renal Epithelial Cells /lpf Urine Crystals See comments Urine Pathogenic Casts /lpf Urine Yeast (Auto) Bedside Glucose 116 mg/dl Assessment and Plan This patient is a 81 y/o female with a history of right breast lobular carcinoma , HTN, HLD, CAD, COPD, CKD stage II-III, diet controlled DM II, h/o multiple PE' s on chronic anticoagulation and GERD who presented to the ED on 04/04 with hypotension and malaise. She remained hypotensive despite fluid boluses and was admitted to the ICU in case of need for vasopressors. CXR with left base atelectasis, otherwise negative on admission. EKG no ischemic changes. WBC 14.18. Creatinine 2.33. POC lactic acid 2.81. LFTs elevated. INR over 8, had been just 2.0 on 04/01. - Septic shock, multisystem organ failure, POA, thought to be secondary to skin wound BP stable off of pressors, transferred out of ICU on 04/06 Blood and urine cultures negative, no wound cultures obtained and at this point likely negative appreciate ID note, continue broad spectrum abx for now given lack of culture results, received 5 days of Vanco and Zosyn switched to Doxycycline 100mg BID to limit fluids given since she is diuresing volume overloaded at this point with aggressive hydration initially, slightly tachycardic with fluid mobilization - Acute systolic heart failure: global cardiomyopathy, 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 Mcdonald will increase beta blockade with metoprolol 25mg QID, cannot give BRIAN due to renal function difficult to diurese due to hypoalbuminemia only 150cc out from 7-3 despite Lasix, will give Zaroxolyn with Lasix/Albumin - AGUSTIN: POA due to septic shock, Cr recovered and now back up to 2.3 with diuresis/lasix use only 150cc of urine out, will give Zaroxolyn and Lasix/Albumin, follow output repeat BMP tomorrow AM, electrolytes stable today - Severe protein/calorie malnutrition due to poor intake, diarrhea, malignancy tolerating Boost but not enough to raise her albumin which is quite low making it more difficult to treat volume overload - H/o PE, on Coumadin, markedly elevated INR on admission INR is 2.3, continue Coumadin 2mg daily - Metastatic breast cancer to LNs-started chemotherapy but due to infiltrative injury around her port, this was discontinued. Had indeterminate pulm nodules on CT Chest in 12/2016 Has been receiving XRT to the right breast and now with radiation hagan Oncology consultation appreciated, may start anti-hormonal treatment soon CT chest on 04/06 to re-assess pulmonary nodules: could not be accurately assessed due to effusions and atelectasis - CAD s/p CABG in 1994, HTN, HLD--no acute issues, hypotension now resolved Holding ASA due to coagulopathy, can resume tomorrow if INR still below 3 hold Lisinopril again due to Cr of 1.5, continue Toprol at 50mg daily Continue Crestor 40 mg PO qd COPD--stable, no exacerbation -Continue Flovent BID DM II, diet controlled- HgbA1c 5.7 glucose in good control -Continue Accu-Cheks, SSI GERD -Continue Protonix and Zantac DVT prophylaxis -INR 2.3 -MT mohamud and SCDs Code Status -Level I, FULL RESUSCITATION STATUS. Pt states she wants 1 good attempt at resuscitation, but no more than that and nothing prolonged plan is to try to diurese further today with Zaroxolyn, Lasix with Albumin, Lopressor 25mg QID prognosis is guarded currently Continued [facility] stay due to: multiple IV medications needed, home environment unsafe for pt
[2017-04-09] MEDS ORDERED: METOLAZONE 5 MG TAB PO ONE (15:00)
[2017-04-09] MEDS ORDERED: ALBUMIN 25% 50 ML with FUROSEMIDE INJ 40 MG IV ONE ×2 (15:00)
[2017-04-09 15:29] VITALS: BP 124/77; PULSE 98; TEMP 36.7; O2SAT 95
[2017-04-09] MEDS: WARFARIN SOD 2 MG TAB PO SCH (16:09)
[2017-04-09 19:20] VITALS: BP 122/83; PULSE 104; TEMP 36.6; O2SAT 94
[2017-04-09] MEDS: ROSUVASTATIN CALCIUM 20 MG TAB PO SCH (20:02)
[2017-04-09] MEDS: RANITIDINE HCL 150 MG TAB PO SCH (20:02)
[2017-04-09 23:43] VITALS: BP 117/80; PULSE 93; TEMP 36.6; O2SAT 93
[2017-04-10 04:20] VITALS: BP 114/71; PULSE 99; TEMP 36.8; O2SAT 91
[2017-04-10 04:56] LABS: ALBUMIN 1.8 gm/dl (3.4-5.0); CALCIUM 7.5 mg/dl (8.5-10.1); CREATININE 2.77 mg/dl (0.60-1.20); POTASSIUM 3.8 mmol/L (3.5-5.1)
[2017-04-10 04:59] LABS: TOTAL PROTEIN 5.7 gm/dl (6.4-8.2)
[2017-04-10 07:20] VITALS: BP 121/80; PULSE 102; TEMP 36.8; O2SAT 93
[2017-04-10] MEDS: INSULIN ASPART 100 UNITS/ML 3 ML PEN SC SCH ×4 (08:05→20:37)
[2017-04-10] MEDS: METOPROLOL SUCC 50MG EXT REL TAB PO SCH ×4 (08:06→19:35)
[2017-04-10] MEDS: ASPIRIN 81 MG ECTAB PO SCH (08:06)
[2017-04-10] MEDS: DOXYCYCLINE HYCLATE 100 MG CAP PO SCH ×2 (08:06→19:35)
[2017-04-10] MEDS: PANTOprazole SOD 40 MG TAB PO SCH (08:07)
[2017-04-10] MEDS: LACTOBACILLUS ACIDOPHILUS (FLORANEX) TAB PO SCH ×3 (08:07→16:39)
[2017-04-10] MEDS: METOCLOPRAMIDE HCL 5 MG TAB PO SCH ×2 (08:07→16:38)
[2017-04-10] MEDS: FLUTICASONE HFA 110MCG INHALER INH SCH ×2 (08:07→19:35)
[2017-04-10] MEDS: ONDANSETRON INJ 2 MG/ML 2 ML VIAL IV PRN (09:09)
[2017-04-10] MEDS: BOOST GLUCOSE CONTROL PO SCH ×3 (09:09→19:50)
[2017-04-10 11:23] VITALS: BP 119/78; PULSE 99; TEMP 36.4; O2SAT 91
--- NOTE | 2017-04-10 11:37 | Nephrology Progress Note ---
Nephrology Progress Note Date of Service Apr 10, 2017. Chief Complaint Follow-up for acute kidney injury. Subjective Mrs. vale was seen and examined in her room this morning with her family at bedside. She denies any shortness of breath, chest pain, no fever or chills. Appetite continues to be poor denies any nausea or abdominal pain. No diarrhea. Renal function decline further creatinine up to 2.8, urine output remained low despite being on Lasix, net positive, blood pressure acceptable. Review of Systems A complete review of systems was performed. Pertinent positives are noted above. All other systems are negative. Vital Signs Last 8 Hrs Date Time Temp Pulse Resp B/P (MAP) Pulse Ox O2 Delivery O2 Flow Rate FiO2 04/10/17 08:00 Room Air 04/10/17 07:20 36.8 102 18 121/80 (94) 93 Room Air 04/10/17 04:20 36.8 99 20 114/71 (85) 91 Room Air 04/10/17 04:00 Room Air Last Recorded Weight Weight (Kilograms): 84.800 Physical Exam GENERAL: Elderly female, AAA x 3, pleasant, ill-appearing, not in any distress. NECK: Supple, positive JVD. RESPIRATORY: Normal breathing efforts, rales bilaterally at bases. CARDIOVASCULAR: S1, S2 normal, rate rhythm regular. EXTREMITY: No lower extremity edema NEURO: speech fluent. PSYCHIATRY: Normal mood and judgment Family History Cancer Diabetes mellitus Myocardial infarction Social History Smoking Status: Former smoker Smokeless Tobacco Use: No Alcohol Use: none Drug Use: none Marital Status: Housing Status: lives alone Occupation: retired Laboratory Results Past 24 Hours 04/10/17 04:14 Test 04/09/17 11:09 04/09/17 16:16 04/09/17 20:16 04/10/17 04:14 Bedside Glucose 116 mg/dl (70-90) 120 mg/dl (70-90) 131 mg/dl (70-90) Anion Gap 9.0 mmol/L (3-11) Est Creatinine Clear Calc Drug Dose 15.8 ml/min Estimated GFR () 18.1 Estimated GFR (Non- 15.6 BUN/Creatinine Ratio 12.4 (10-20) Calcium Level 7.5 mg/dl (8.5-10.1) Total Bilirubin 0.3 mg/dl (0.2-1) Aspartate Amino Transf (AST/SGOT) 18 U/L (15-37) Alanine Aminotransferase (ALT/SGPT) 28 U/L (12-78) Alkaline Phosphatase 80 U/L (45-117) Total Protein 5.7 gm/dl (6.4-8.2) Albumin 1.8 gm/dl (3.4-5.0) Globulin 3.9 gm/dl (2.5-4.0) Albumin/Globulin Ratio 0.5 (0.9-2) Test 04/10/17 06:48 Bedside Glucose 99 mg/dl (70-90) Allergies Coded Allergies: Nitroglycerin (Verified Allergy, Intermediate, BP Decreases, HR Increases , 04/04/17) REACTION WITH SUBLINGUAL PER RECORDS Medications Current Inpatient Medications Medications (Trade) Dose Ordered Sig/Sendy Route Start Time Stop Time Status Last Admin Dose Admin Acetaminophen (Tylenol Tab) 650 mg Q4H PRN PO 04/04/17 18:30 05/04/17 18:29 Al Hydrox/Mg Hydrox/Simethicone (Maalox Max Susp) 15 ml Q4H PRN PO 04/04/17 18:30 05/04/17 18:29 Magnesium Hydroxide (Milk Of Magnesia Susp) 30 ml Q12H PRN PO 04/04/17 18:30 05/04/17 18:29 Ondansetron HCl (Zofran Inj) 4 mg Q6H PRN IV 04/04/17 18:30 05/04/17 18:29 04/10/17 09:09 4 MG Polyethylene (Miralax Powder Packet) 17 gm DAILY PRN PO 04/04/17 18:30 05/04/17 18:29 Albuterol (Ventolin Hfa Inhaler) 1 puffs Q4H PRN INH 04/04/17 18:30 05/04/17 18:29 Pantoprazole Sodium (Protonix Tab) 40 mg QAM PO 04/05/17 09:00 05/05/17 08:59 04/10/17 08:07 40 MG Rosuvastatin Calcium (Crestor Tab) 40 mg HS PO 04/04/17 21:00 05/04/17 20:59 04/09/17 20:02 40 MG Fluticasone Propionate (Flovent Hfa 110MCG Inhaler) 2 puffs BID INH 04/04/17 21:00 05/04/17 20:59 04/10/17 08:07 2 PUFFS Ranitidine HCl (zANTac TAB) 150 mg HS PO 04/04/17 21:00 05/04/17 20:59 04/09/17 20:02 150 MG Heparin Sodium (Porcine) (Heparin 10 Unit/ ml 5 ml Flush) 5 ml PRN PRN FLUSH 04/06/17 03:30 05/06/17 03:29 Ioversol (Optiray 320) 125 ml UD PRN IV 04/06/17 14:00 04/10/17 13:59 Insulin Aspart (novoLOG ASPART) SLIDING SCALE If C... ACHS SC 04/06/17 16:00 05/06/17 15:59 Glucose (Glucose 40% Gel) 15-30 GRAMS 15 GRAMS... UD PRN PO 04/06/17 14:15 05/06/17 14:14 Glucose (Glucose Chew Tab) 4-8 Tablets 4 Tabl... UD PRN PO 04/06/17 14:15 05/06/17 14:14 Dextrose (Dextrose 50% 50ML Syringe) 25-50ML OF 50% DW IV FOR... UD PRN IV 04/06/17 14:15 05/06/17 14:14 Glucagon (Glucagon Inj) 1 mg UD PRN SQ 04/06/17 14:15 05/06/17 14:14 Enteral Nutritional Formula (Boost Glucose Control) 1 can BID@1000,2100 PO 04/06/17 21:00 05/06/17 20:59 04/07/17 20:36 1 CAN Lisinopril (Zestril Tab) 10 mg QAM PO 04/08/17 09:00 05/08/17 08:59 Future Hold 04/08/17 07:29 10 MG Metoclopramide HCl (Reglan Tab) 5 mg BID@0700,1600 PO 04/07/17 17:30 05/07/17 17:29 04/10/17 08:07 5 MG Morphine Sulfate (MoRPHine SULFATE INJ) 1 mg Q4 PRN IV 04/08/17 08:30 04/22/17 08:29 Lactobacillus Acidophilus (Floranex Tab) 4 tab TIDM PO 04/08/17 16:45 05/08/17 16:44 04/10/17 08:07 4 TAB Diphenoxylate HCl/ Atropine (Lomotil Tab) 1 tab Q4 PRN PO 04/08/17 12:30 05/08/17 12:29 Doxycycline Hyclate (Vibramycin Cap) 100 mg BID PO 04/08/17 21:00 04/18/17 20:59 04/10/17 08:06 100 MG Warfarin Sodium (Coumadin Tab) 2 mg DAILY@16 PO 04/08/17 16:00 05/08/17 15:59 04/09/17 16:09 2 MG Furosemide 40 mg/ Syringe 4 ml @ 4 mls/min Q12 IV 04/08/17 21:00 05/08/17 11:59 Future Hold 04/09/17 08:24 4 MLS/MIN Aspirin (Ecotrin Tab) 81 mg QAM PO 04/09/17 09:00 05/09/17 08:59 04/10/17 08:06 81 MG Metoprolol Succinate (Toprol Xl Tab) 25 mg QID PO 04/09/17 13:00 05/08/17 08:59 04/10/17 08:06 25 MG Impression (1) Acute renal failure (2) Hypertension Nos (3) Breast cancer (4) Open wound of chest (wall), complicated (5) Anemia Mrs. Vale is a 81-year-old female with history of breast cancer admitted to the hospital with the persistent hypotension, sepsis possibly secondary to skin infection. She was empirically started on vancomycin and Zosyn which was discontinued and now on doxycycline. She has no known history of chronic kidney disease, On admission she was found to have acute kidney injury, creatinine was 2.5 which eventually improved her baseline of 0.7-0.8. Acute kidney injury was most likely hemodynamically mediated in the setting of persistent hypotension. Renal function improved with IV hydration and hemodynamic stability. However over last 3 days renal function again started to decline creatinine now up to 2.8 this morning. She was found to be volume overloaded, IV fluid was discontinued and started on IV Lasix. Vancomycin Zosyn was discontinued. Echo showed ejection fraction 20-25 % with prior normal ejection fraction. Recurrent acute kidney injury could be due to hemodynamically mediated ATN with low ejection fraction vs acute interstitial nephritis from vancomycin. . - unclear etiology for significant drop in EF,? Adriamycin toxicity Breast cancer diagnosed in August 2016, treated with lumpectomy, chemotherapy with Adriamycin and Taxotere, and radiation therapy causing skin burn and skin necrosis from infiltration of back to mycin under skin. The Recommendations --increase Lasix to 40 milligram twice a day aim for slightly net negative --continue to hold lisinopril, avoid further IV fluid --monitor renal function and urine output closely --hold off any further workup as acute kidney injury most likely secondary to hemodynamically mediated ATN, unlikely intrinsic renal disease or postrenal obstruction. Will follow
--- NOTE | 2017-04-10 13:53 | CARDIOLOGY PROGRESS NOTE ---
DATE: 04/10/2017 CARDIOLOGY CONSULTATION FOLLOWUP NOTE The patient seen and examined. Chart, medications, telemetry reviewed. SUBJECTIVE: The patient feels improved this morning, less dyspneic, did receive IV furosemide and albumin yesterday with only minimal urinary outputs, but improved clinical symptoms. Notes no chest pains. Notes no tachypalpitations. Notes no dizziness or lightheadedness. OBJECTIVE: VITAL SIGNS: Heart rate is 99, blood pressure is 119/78, O2 saturations 91% on room air. NECK: Thin. There is no distinct jugular venous distention. LUNGS: Reveal diminished breath sounds at the bases. CARDIOVASCULAR: Regular. There is no S3 gallop. ABDOMEN: Soft. EXTREMITIES: Reveal diminished edema. LABORATORY STUDIES: Today, sodium is 131, potassium 3.8, chloride 100, bicarbonate 22, BUN 34, creatinine 2.77. IMPRESSION: A 81-year-old female with a very complex history as well outlined, admitted with acute signs and symptoms of sepsis with hypotension requiring large volume fluid resuscitation. She has now demonstrated signs and symptoms of worsening renal insufficiency and congestive heart failure, multifactorial. An echocardiogram has demonstrated diminished left ventricular systolic function. I have reviewed findings in detail with the patient once again. The pattern on echocardiogram does not suggest acute ischemia, though chronic multivessel ischemia could result in global hypokinesis. Doses received of Adriamycin and chemotherapy drugs were not sufficient to result in cardiomyopathy with the patient not receiving essentially any dose of all the initial dosing. I suspect this represents catecholamine mediated complaints given her initial presentation and acute illness. Treatment will be upward titration of her beta timothy. We will increase Toprol-XL to 50 mg t.i.d. Continue IV diuretics, though exam is not manifesting acute worsening of heart failure or edema despite low urinary outputs. Low albumin complicating management. PLAN: As above. Chest x-ray ordered for a.m. to reassess size and severity of pleural effusions. We will follow renal function along with cardiac function. The patient is agreeable to plan. Encouraged oral intake and protein supplement. MTDD
--- NOTE | 2017-04-10 14:05 | Progress Note ---
Subjective Date of Service: Apr 10, 2017. Subjective Pt evaluation today including: conversation w/ patient, physical exam, lab review, review of inpatient medication list Pain: no pain PO Intake: sub optimal, but eating Voiding: ortiz catheter in place patient breathing better today, no distress, overall she feels better no pain reviewed labs, Cr up to 2.77 after diuresis yesterday discussed case with Dr. Mcdonald and Dr. Donis Problem List Medical Problems: (1) Acute renal failure Status: Acute (2) Bilateral pulmonary embolism Status: Chronic (3) Elevated LFTs Status: Acute (4) Hematuria Status: Acute (5) Orthostatic hypertension Status: Acute (6) Sepsis Status: Acute (7) Sepsis affecting skin Status: Acute (8) Septic shock Status: Acute (9) Supratherapeutic INR Status: Acute (10) Supratherapeutic INR Status: Acute Review of Systems Constitutional: + weakness, + fatigue Respiratory: + shortness of breath Abdomen: + diarrhea (2-3x a day) Neurologic: + weakness Skin: + problem reported (bilateral breast wounds) All Other Systems: Reviewed and Negative Medications Current Inpatient Medications Medications (Trade) Dose Ordered Sig/Sendy Route Start Time Stop Time Status Last Admin Dose Admin Acetaminophen (Tylenol Tab) 650 mg Q4H PRN PO 04/04/17 18:30 05/04/17 18:29 Al Hydrox/Mg Hydrox/Simethicone (Maalox Max Susp) 15 ml Q4H PRN PO 04/04/17 18:30 05/04/17 18:29 Magnesium Hydroxide (Milk Of Magnesia Susp) 30 ml Q12H PRN PO 04/04/17 18:30 05/04/17 18:29 Ondansetron HCl (Zofran Inj) 4 mg Q6H PRN IV 04/04/17 18:30 05/04/17 18:29 04/10/17 09:09 4 MG Polyethylene (Miralax Powder Packet) 17 gm DAILY PRN PO 04/04/17 18:30 05/04/17 18:29 Albuterol (Ventolin Hfa Inhaler) 1 puffs Q4H PRN INH 04/04/17 18:30 05/04/17 18:29 Pantoprazole Sodium (Protonix Tab) 40 mg QAM PO 04/05/17 09:00 05/05/17 08:59 04/10/17 08:07 40 MG Rosuvastatin Calcium (Crestor Tab) 40 mg HS PO 04/04/17 21:00 05/04/17 20:59 04/09/17 20:02 40 MG Fluticasone Propionate (Flovent Hfa 110MCG Inhaler) 2 puffs BID INH 04/04/17 21:00 05/04/17 20:59 04/10/17 08:07 2 PUFFS Ranitidine HCl (zANTac TAB) 150 mg HS PO 04/04/17 21:00 05/04/17 20:59 04/09/17 20:02 150 MG Heparin Sodium (Porcine) (Heparin 10 Unit/ ml 5 ml Flush) 5 ml PRN PRN FLUSH 04/06/17 03:30 05/06/17 03:29 Ioversol (Optiray 320) 125 ml UD PRN IV 04/06/17 14:00 04/10/17 13:59 Insulin Aspart (novoLOG ASPART) SLIDING SCALE If C... ACHS SC 04/06/17 16:00 05/06/17 15:59 Glucose (Glucose 40% Gel) 15-30 GRAMS 15 GRAMS... UD PRN PO 04/06/17 14:15 05/06/17 14:14 Glucose (Glucose Chew Tab) 4-8 Tablets 4 Tabl... UD PRN PO 04/06/17 14:15 05/06/17 14:14 Dextrose (Dextrose 50% 50ML Syringe) 25-50ML OF 50% DW IV FOR... UD PRN IV 04/06/17 14:15 05/06/17 14:14 Glucagon (Glucagon Inj) 1 mg UD PRN SQ 04/06/17 14:15 05/06/17 14:14 Enteral Nutritional Formula (Boost Glucose Control) 1 can BID@1000,2100 PO 04/06/17 21:00 05/06/17 20:59 04/07/17 20:36 1 CAN Lisinopril (Zestril Tab) 10 mg QAM PO 04/08/17 09:00 05/08/17 08:59 Future Hold 04/08/17 07:29 10 MG Metoclopramide HCl (Reglan Tab) 5 mg BID@0700,1600 PO 04/07/17 17:30 05/07/17 17:29 04/10/17 08:07 5 MG Morphine Sulfate (MoRPHine SULFATE INJ) 1 mg Q4 PRN IV 04/08/17 08:30 04/22/17 08:29 Lactobacillus Acidophilus (Floranex Tab) 4 tab TIDM PO 04/08/17 16:45 05/08/17 16:44 04/10/17 11:18 4 TAB Diphenoxylate HCl/ Atropine (Lomotil Tab) 1 tab Q4 PRN PO 04/08/17 12:30 05/08/17 12:29 Doxycycline Hyclate (Vibramycin Cap) 100 mg BID PO 04/08/17 21:00 04/18/17 20:59 04/10/17 08:06 100 MG Warfarin Sodium (Coumadin Tab) 2 mg DAILY@16 PO 04/08/17 16:00 05/08/17 15:59 04/09/17 16:09 2 MG Furosemide 40 mg/ Syringe 4 ml @ 4 mls/min Q12 IV 04/08/17 21:00 05/08/17 11:59 Future Hold 04/09/17 08:24 4 MLS/MIN Aspirin (Ecotrin Tab) 81 mg QAM PO 04/09/17 09:00 05/09/17 08:59 04/10/17 08:06 81 MG Metoprolol Succinate (Toprol Xl Tab) 25 mg QID PO 04/09/17 13:00 05/08/17 08:59 04/10/17 11:18 25 MG Furosemide 40 mg/ Syringe 4 ml @ 4 mls/min BID IV 04/10/17 21:00 05/10/17 20:59 Objective Vital Signs Date Time Temp Pulse Resp B/P (MAP) Pulse Ox O2 Delivery O2 Flow Rate FiO2 04/10/17 12:00 Room Air 04/10/17 11:23 36.4 99 20 119/78 (92) 91 Room Air 04/10/17 08:00 Room Air 04/10/17 07:20 36.8 102 18 121/80 (94) 93 Room Air 04/10/17 04:20 36.8 99 20 114/71 (85) 91 Room Air 04/10/17 04:00 Room Air 04/10/17 00:00 Room Air 04/09/17 23:43 36.6 93 20 117/80 (92) 93 Room Air 04/09/17 20:00 Room Air 04/09/17 19:20 36.6 104 22 122/83 (96) 94 Room Air 04/09/17 16:00 Room Air 04/09/17 15:29 36.7 98 20 124/77 (93) 95 Room Air Physical Exam General Appearance: WD/WN, no apparent distress Eyes: normal inspection, EOMI, sclerae normal Neck: supple, no adenopathy, no JVD, trachea midline Respiratory/Chest: chest non-tender, no respiratory distress, no accessory muscle use, + decreased breath sounds (bases) Cardiovascular: no edema, no gallop, no JVD, no murmur, + tachycardia Abdomen: normal bowel sounds, non tender, soft, no organomegaly Extremities: normal range of motion, non-tender, normal inspection, no pedal edema, no calf tenderness, pelvis stable 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, alert, normal mood/affect, oriented x 3, + motor weakness (generalized) Skin: + pertinent finding (right breast radiation burn, left breast wound, vac removed) Laboratory Results Last 24 Hours Test 04/09/17 16:16 04/09/17 20:16 04/10/17 04:14 04/10/17 06:48 Bedside Glucose 120 mg/dl 131 mg/dl 99 mg/dl Sodium Level 131 mmol/L Potassium Level 3.8 mmol/L Chloride Level 100 mmol/L Carbon Dioxide Level 22 mmol/L Anion Gap 9.0 mmol/L Blood Urea Nitrogen 34 mg/dl Creatinine 2.77 mg/dl Est Creatinine Clear Calc Drug Dose 15.8 ml/min Estimated GFR () 18.1 Estimated GFR (Non- 15.6 BUN/Creatinine Ratio 12.4 Random Glucose 95 mg/dl Calcium Level 7.5 mg/dl Total Bilirubin 0.3 mg/dl Aspartate Amino Transf (AST/SGOT) 18 U/L Alanine Aminotransferase (ALT/SGPT) 28 U/L Alkaline Phosphatase 80 U/L Total Protein 5.7 gm/dl Albumin 1.8 gm/dl Globulin 3.9 gm/dl Albumin/Globulin Ratio 0.5 Test 04/10/17 11:04 Bedside Glucose 132 mg/dl Assessment and Plan This patient is a 81 y/o female with a history of right breast lobular carcinoma , HTN, HLD, CAD, COPD, CKD stage II-III, diet controlled DM II, h/o multiple PE' s on chronic anticoagulation and GERD who presented to the ED on 04/04 with hypotension and malaise. She remained hypotensive despite fluid boluses and was admitted to the ICU in case of need for vasopressors. CXR with left base atelectasis, otherwise negative on admission. EKG no ischemic changes. WBC 14.18. Creatinine 2.33. POC lactic acid 2.81. LFTs elevated. INR over 8, had been just 2.0 on 04/01. - Septic shock, multisystem organ failure, POA, thought to be secondary to skin wound BP stable off of pressors, transferred out of ICU on 04/06 Blood and urine cultures negative, no wound cultures obtained and at this point likely negative appreciate ID note, received 5 days of Vanco and Zosyn switched to Doxycycline 100mg BID to limit fluids given since she is diuresing needs minimum of 3 weeks of antibiotics, follow up with ID in the wound clinic - Acute systolic heart failure: global cardiomyopathy, 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 Mcdonald will increase beta blockade with metoprolol 25mg QID, cannot give BRIAN due to renal function difficult to diurese due to hypoalbuminemia less pulmonary edema today despite not much diuresis - AGUSTIN: POA due to septic shock, Cr recovered and then back up to 2.3 with diuresis/lasix use Cr up to 2.7 today, nephrology recommends Lasix 40mg IV BID will give today, hold in the AM until volume and Cr can be assessed - Severe protein/calorie malnutrition due to poor intake, diarrhea, malignancy tolerating Boost but not enough to raise her albumin which is quite low at 1.8 making it more difficult to treat volume overload - H/o PE, on Coumadin, markedly elevated INR on admission INR 2.3 yesterday, continue Coumadin 2mg daily check INR in the AM - Metastatic breast cancer to LNs-started chemotherapy but due to infiltrative injury around her port, this was discontinued. Had indeterminate pulm nodules on CT Chest in 12/2016 Has been receiving XRT to the right breast and now with radiation hagan Oncology consultation appreciated, may start anti-hormonal treatment soon as outpatient CT chest on 04/06 to re-assess pulmonary nodules: could not be accurately assessed due to effusions and atelectasis will need to be done as outpatient - CAD s/p CABG in 1994, HTN, HLD--no acute issues, hypotension now resolved resume aspirin hold Lisinopril due to AGUSTIN continue Lopressor 25mg QID Continue Crestor 40 mg PO qd COPD--stable, no exacerbation -Continue Flovent BID DM II, diet controlled- HgbA1c 5.7 glucose in good control -Continue Accu-Cheks, SSI GERD -Continue Protonix and Zantac DVT prophylaxis -INR 2.3 -MT mohamud and YARAs Code Status -Level I, FULL RESUSCITATION STATUS. Pt states she wants 1 good attempt at resuscitation, but no more than that and nothing prolonged assess volume status and check Cr in the AM, PT/OT consults, discuss with cardiology and nephrology tomorrow Continued [facility] stay due to: multiple IV medications needed, home environment unsafe for pt
[2017-04-10 15:45] VITALS: BP 128/89; PULSE 94; TEMP 36.4; O2SAT 94
[2017-04-10] MEDS: WARFARIN SOD 2 MG TAB PO SCH (16:39)
[2017-04-10] MEDS: ROSUVASTATIN CALCIUM 20 MG TAB PO SCH (19:35)
[2017-04-10] MEDS: RANITIDINE HCL 150 MG TAB PO SCH (19:35)
[2017-04-10 20:00] VITALS: BP 136/80; PULSE 99; TEMP 36.5; O2SAT 93
[2017-04-10] MEDS ORDERED: FUROSEMIDE INJ 40 MG in SYRINGE 0 ML IV SCH (21:00)
--- NOTE | 2017-04-10 21:09 | Progress Note ---
Post ICU Progress Note Date & Time Apr 10, 2017 at 21:06 Vital Signs Vital Signs Past 12 Hours Date Time Temp Pulse Resp B/P (MAP) Pulse Ox O2 Delivery O2 Flow Rate FiO2 04/10/17 20:00 Room Air 04/10/17 20:00 36.5 99 20 136/80 (98) 93 Room Air 04/10/17 16:00 Room Air 04/10/17 15:45 36.4 94 22 128/89 (102) 94 Room Air 04/10/17 12:00 Room Air 04/10/17 11:23 36.4 99 20 119/78 (92) 91 Room Air Notes Mental Status: alert / awake Nausea / Vomiting: adequately controlled Pain: adequately controlled Airway Patency, RR, SpO2: stable & adequate BP & HR: stable & adequate Patient is a 81-year-old female initially admitted for septic shock secondary to wound infections. She was admitted to the ICU and received aggressive IV fluid resuscitation. The patient had an INR of 8.0. This was corrected throughout her stay. A RIGHT femoral central line was placed for access and remains in place this point. Patient has been improving, however her kidney functions are rising. This is discussed with nephrology. They will continue to monitor closely as with cardiology. On evaluation today, the patient is resting comfortably. She reports that she feels much better than when she was initially admitted. She is looking forward to being discharged. She offers no complaints at this time. Consider outpatient follow up in 1 to 2 weeks with: Oncology, PCP Repeat imaging needed: Per admitting team. Follow up cultures: All cultures have been negative to this point. Would not repeat unless change in clinical status/course. Reviewed progress notes, labs, and inpatient medication list Continue current management Additional recommendations: Discontinue RIGHT Femoral CVL prior to discharge. Thank you for allowing us to participate in the care of this patient. At this time, Critical Care Services will sign off on this patient. Please feel free to reconsult as needed. Consults & Procedures Consultants: Heme/Onc - Dr Monroy Procedures: Right femoral TLC - 04/05/17
[2017-04-10 23:28] VITALS: BP 115/75; PULSE 90; TEMP 36.7; O2SAT 94
[2017-04-11] VITALS (8 sets, daily range): BP systolic 113–125; BP diastolic 71–81; PULSE 83–89; TEMP 36.4–36.6; O2SAT 93–96
[2017-04-11 04:44] LABS: HEMATOCRIT 32.5 % (37-47); HEMOGLOBIN 10.5 g/dL (12.0-16.0); MEAN CORPUSCULAR HEMOGLOBIN 27.1 pg (25-34); MEAN CORPUSCULAR HGB CONC 32.3 g/dl (32-36); MEAN PLATELET VOLUME 8.7 fL (7.4-10.4); PLATELET COUNT 204 K/uL (130-400); RED CELL DISTRIBUTION WIDTH CV 15.6 % (11.5-14.5); RED CELL DISTRIBUTION WIDTH SD 48.1 fL (36.4-46.3); WHITE BLOOD COUNT 7.22 K/uL (4.8-10.8)
[2017-04-11 05:00] LABS: CALCIUM 7.5 mg/dl (8.5-10.1); CREATININE 2.9 mg/dl (0.60-1.20)
[2017-04-11 05:06] LABS: INR 4.2 (0.9-1.1)
[2017-04-11 05:42] LABS: BASO % 0.3 %; BASO ABS # 0.02 K/uL (0-0.2); EOS % 2.2 %; EOS ABS # 0.16 K/uL (0-0.5); IG# 0.08 K/uL (0.00-0.02); LYMPH % 10.2 %; LYMPH ABS # 0.74 K/uL (1.2-3.4); MONO % 10.2 %; MONO ABS # 0.74 K/uL (0.11-0.59); NEUT ABS # 5.48 K/uL (1.4-6.5)
[2017-04-11] MEDS: LACTOBACILLUS ACIDOPHILUS (FLORANEX) TAB PO SCH ×3 (06:17→16:43)
[2017-04-11] MEDS: METOCLOPRAMIDE HCL 5 MG TAB PO SCH ×2 (06:17→16:43)
[2017-04-11] MEDS: INSULIN ASPART 100 UNITS/ML 3 ML PEN SC SCH ×4 (07:00→20:23)
[2017-04-11] MEDS: FLUTICASONE HFA 110MCG INHALER INH SCH ×2 (07:30→20:21)
[2017-04-11] MEDS: DOXYCYCLINE HYCLATE 100 MG CAP PO SCH ×2 (07:30→20:22)
[2017-04-11] MEDS: PANTOprazole SOD 40 MG TAB PO SCH (07:30)
[2017-04-11] MEDS: ONDANSETRON INJ 2 MG/ML 2 ML VIAL IV PRN (07:30)
[2017-04-11] MEDS: METOPROLOL SUCC 50MG EXT REL TAB PO SCH ×4 (07:31→20:21)
[2017-04-11] MEDS: ASPIRIN 81 MG ECTAB PO SCH (07:31)
--- NOTE | 2017-04-11 07:36 | DIAGNOSTIC IMAGING REPORT ---
SINGLE VIEW CHEST CLINICAL HISTORY: CHF. FINDINGS: An AP, portable, upright chest radiograph is compared to chest x-ray and chest CT dated 04/08/2017. The examination is degraded by portable technique and patient rotation. A left subclavian central venous infusion port is unchanged in position. The patient is status post midline sternotomy. The heart is enlarged and there is atherosclerotic calcification of the thoracic aorta. There is pulmonary vascular congestion and interstitial edema. This has not significantly changed from 04/16/2017. There are layering pleural effusions with bibasilar consolidation. No pneumothorax is seen. The skeletal structures are osteopenic. Advanced arthritic change is seen in the shoulders and thoracic spine. IMPRESSION: 1. Cardiomegaly with evidence of congestive failure and interstitial edema. This has not significantly changed from 04/08/2017. 2. Layering pleural effusions with bibasilar consolidation. Electronically signed by: Kodi Ro M.D. 04/11/2017 7:34 AM Dictated Date/Time: 04/11/2017 7:33 AM
[2017-04-11] MEDS: BOOST GLUCOSE CONTROL PO SCH ×2 (09:54→20:20)
--- NOTE | 2017-04-11 10:49 | Hematology/Oncology Prog Note ---
Hematology/Onc Progress Note Date of Service Apr 11, 2017. Diagnoses Breast carcinoma Hypotension Coronary artery disease Rule out sepsis Medications Medications Administered Medications (Trade) Dose Ordered Sig/Sendy Route Start Time Stop Time Status Last Admin Dose Admin Sodium Chloride 500 ml @ 999 mls/hr Q31M STAT IV 04/04/17 15:47 04/04/17 16:17 DC 04/04/17 16:23 999 MLS/HR Sodium Chloride 1,000 ml @ 999 mls/hr Q1H1M STAT IV 04/04/17 16:50 04/04/17 17:50 DC 04/04/17 17:05 999 MLS/HR Daptomycin 500 mg/ Sodium Chloride 60 ml @ 100 mls/hr NOW STAT IV 04/04/17 16:50 04/04/17 17:25 DC 04/04/17 17:30 100 MLS/HR Cefepime HCl 1000 mg/Dextrose 111 ml @ 200 mls/hr NOW STAT IV 04/04/17 16:50 04/04/17 17:23 DC 04/04/17 17:31 200 MLS/HR Sodium Chloride 1,000 ml @ 999 mls/hr Q1H1M STAT IV 04/04/17 17:59 04/04/17 18:59 DC 04/04/17 18:24 999 MLS/HR Ondansetron HCl (Zofran Inj) 4 mg Q6H PRN IV 04/04/17 18:30 05/04/17 18:29 04/11/17 07:30 4 MG Pantoprazole Sodium (Protonix Tab) 40 mg QAM PO 04/05/17 09:00 05/05/17 08:59 04/11/17 07:30 40 MG Rosuvastatin Calcium (Crestor Tab) 40 mg HS PO 04/04/17 21:00 05/04/17 20:59 04/10/17 19:35 40 MG Fluticasone Propionate (Flovent Hfa 110MCG Inhaler) 2 puffs BID INH 04/04/17 21:00 05/04/17 20:59 04/11/17 07:30 2 PUFFS Ranitidine HCl (zANTac TAB) 150 mg HS PO 04/04/17 21:00 05/04/17 20:59 04/10/17 19:35 150 MG Phytonadione (Mephyton Tab) 5 mg NOW STAT PO 04/04/17 18:17 04/04/17 18:40 DC 04/04/17 19:34 5 MG Vancomycin HCl 2000 mg/Sodium Chloride 540 ml @ 200 mls/hr NOW STAT IV 04/04/17 18:49 04/04/17 21:30 DC 04/04/17 19:14 200 MLS/HR Piperacillin Sod/ Tazobactam Sod 3.375 gm/Dextrose 115 ml @ 230 mls/hr NOW STAT IV 04/04/17 19:54 04/04/17 20:23 DC 04/04/17 21:49 230 MLS/HR Piperacillin Sod/ Tazobactam Sod 4.5 gm/Dextrose 120 ml @ 30 mls/hr Q12@0400,1600 IV 04/05/17 04:00 04/05/17 20:00 DC 04/05/17 16:30 30 MLS/HR Potassium Chloride/Sodium Chloride 1,000 ml @ 80 mls/hr [id number] IV 04/04/17 21:15 04/06/17 13:45 DC 04/06/17 00:49 80 MLS/HR Sodium Chloride 250 ml @ 999 mls/hr Q16M IV 04/04/17 22:30 04/04/17 22:45 DC 04/04/17 22:45 999 MLS/HR Sodium Chloride 250 ml @ 999 mls/hr Q16M IV 04/05/17 02:00 04/05/17 02:15 DC 04/05/17 02:16 999 MLS/HR Sodium Chloride 250 ml @ 999 mls/hr Q16M IV 04/05/17 04:30 04/05/17 04:45 DC 04/05/17 05:20 999 MLS/HR Vancomycin HCl 1000 mg/Sodium Chloride 270 ml @ 125 mls/hr Q24H IV 04/05/17 08:00 04/06/17 14:37 DC 04/06/17 07:50 125 MLS/HR Piperacillin Sod/ Tazobactam Sod 4.5 gm/Dextrose 120 ml @ 30 mls/hr Q8H IV 04/06/17 00:00 04/08/17 12:21 DC 04/08/17 07:28 30 MLS/HR Potassium Phosphate 9 mmol/ Sodium Chloride 253 ml @ 88 mls/hr NOW ONCE IV 04/05/17 21:30 04/06/17 00:22 DC 04/05/17 21:42 88 MLS/HR Enteral Nutritional Formula (Boost Plus Vanilla) 1 can TID PO 04/06/17 14:00 04/06/17 17:09 DC 04/06/17 14:07 1 CAN Vancomycin HCl 1000 mg/Sodium Chloride 270 ml @ 125 mls/hr Q18H IV 04/07/17 02:00 04/08/17 12:21 DC 04/07/17 20:36 125 MLS/HR Enteral Nutritional Formula (Boost Glucose Control) 1 can BID@1000,2100 PO 04/06/17 21:00 05/06/17 20:59 04/10/17 19:50 1 CAN Furosemide 20 mg/ Albumin Human 52 ml @ 54 mls/hr Q12H IV 04/06/17 18:00 04/08/17 12:21 DC 04/08/17 06:42 54 MLS/HR Phytonadione (Mephyton Tab) 2.5 mg NOW ONCE PO 04/06/17 17:45 04/06/17 17:46 DC 04/06/17 17:48 2.5 MG Furosemide 20 mg/ Syringe 2 ml @ 4 mls/min 1430 ONCE IV 04/07/17 14:30 04/07/17 14:31 DC 04/07/17 14:38 4 MLS/MIN Furosemide 20 mg/ Syringe 2 ml @ 4 mls/min Q12@0600,1800 IV 04/08/17 06:00 04/08/17 08:02 DC 04/08/17 07:41 4 MLS/MIN Metoprolol Succinate (Toprol Xl Tab) 50 mg QAM PO 04/08/17 09:00 04/09/17 11:36 DC 04/09/17 08:23 50 MG Lisinopril (Zestril Tab) 10 mg QAM PO 04/08/17 09:00 05/08/17 08:59 Future Hold 04/08/17 07:29 10 MG Metoprolol Tartrate (Lopressor Iv) 5 mg ONE ONCE IV 04/07/17 17:15 04/07/17 17:16 DC 04/07/17 17:36 5 MG Metoprolol Succinate (Toprol Xl Tab) 50 mg ONE ONCE PO 04/07/17 17:15 04/07/17 17:16 DC 04/07/17 17:36 50 MG Metoclopramide HCl (Reglan Tab) 5 mg BID@0700,1600 PO 04/07/17 17:30 05/07/17 17:29 04/11/17 06:17 5 MG Furosemide 40 mg/ Syringe 4 ml @ 4 mls/min Q6 IV 04/08/17 12:00 04/08/17 16:12 DC 04/08/17 11:23 4 MLS/MIN Lactobacillus Acidophilus (Floranex Tab) 4 tab TIDM PO 04/08/17 16:45 05/08/17 16:44 04/11/17 06:17 4 TAB Doxycycline Hyclate (Vibramycin Cap) 100 mg BID PO 04/08/17 21:00 04/18/17 20:59 04/11/17 07:30 100 MG Warfarin Sodium (Coumadin Tab) 2 mg DAILY@16 PO 04/08/17 16:00 05/08/17 15:59 04/10/17 16:39 2 MG Furosemide 40 mg/ Syringe 4 ml @ 4 mls/min Q12 IV 04/08/17 21:00 05/08/17 11:59 Future Hold 04/09/17 08:24 4 MLS/MIN Aspirin (Ecotrin Tab) 81 mg QAM PO 04/09/17 09:00 05/09/17 08:59 04/11/17 07:31 81 MG Metoprolol Succinate (Toprol Xl Tab) 25 mg QID PO 04/09/17 13:00 05/08/17 08:59 04/11/17 07:31 25 MG Metolazone (Zaroxolyn Tab) 5 mg NOW ONCE PO 04/09/17 15:00 04/09/17 15:22 DC 04/09/17 15:35 5 MG Furosemide 40 mg/ Albumin Human 54 ml @ 54 mls/hr ONE ONCE IV 04/09/17 15:00 04/09/17 15:59 DC 04/09/17 16:13 54 MLS/HR Furosemide 40 mg/ Syringe 4 ml @ 4 mls/min BID IV 04/10/17 21:00 05/10/17 20:59 Future Hold 04/10/17 19:36 4 MLS/MIN Subjective Appears more comfortable. Has some pain around the wound on the right side of her chest from some change of bandage. She did have a conversation with radiation therapy today and Dr. Klein reviews with me that no further radiation therapy is planned. Review of Systems: Constitutional: Negative for night sweats, or fever Eyes: Negative for event change of vision ENT: Negative for epistaxis, nasal discharge, sore throat, or deafness Cardiovascular: Negative for chest pain, palpitations, dizziness, diaphoresis Respiratory: Negative for new shortness of breath,hemoptysis, or purulent cough Gastrointestinal: Negative for diarrhea, hematemesis, melena, nausea, vomiting , or dyspepsia Integumentary (skin): Negative for rash or jaundice discoloration Neurological: Negative for weakness, seizure activity, headache, or dizziness Lymphatic/Hematologic: Negative for petechiae, bleeding or new adenopathy Musculoskeletal: Negative for new joint or back pain Allergic/Immunologic: Negative for unusual rash or pruritis. Vital Signs Vital Signs Past 12 Hours Date Time Temp Pulse Resp B/P (MAP) Pulse Ox O2 Delivery O2 Flow Rate FiO2 04/11/17 08:00 Room Air 04/11/17 07:26 36.4 84 20 118/77 (91) 95 Room Air 04/11/17 04:00 Room Air 04/11/17 03:55 36.4 87 20 113/71 (85) 93 Room Air 04/11/17 00:15 Room Air 04/10/17 23:28 36.7 90 21 115/75 (88) 94 Room Air Physical Exam Constitutional: vitals are stable. Eyes: Eyes are NOAH EOMI without conjuctival erythema or icterus. ENT: External examination was negative for masses. Neck: Negative for masses or palpable thyromegaly Respiratory: Lung sounds were generally clear bilaterally Cardiovascular: Heart was RRR without significant murmur, gallops aoe rubs Gastrointestinal: No palpable hepatic or splenomegaly. The abdomen was soft with normal bowel sounds. Lymphatic system: there was no palpable peripheral lymphadenopathy Musculoskeletal System: The musculoskeletal system seemed concordant with age. Skin: The skin was negative for jaundice. Neurologic exam: The exam was negative for any focal findings. Deep tendon reflexes were equal and symmetrical. Psychiatric exam: Was essentially negative with normal mood and effect. Breast exam: Chest wall both right and left side remained heavily bandage. This was not removed by me for inspection today Laboratory Last 24 Hours Test 04/10/17 11:04 04/10/17 16:10 04/10/17 20:12 04/11/17 04:28 Bedside Glucose 132 mg/dl 119 mg/dl 130 mg/dl White Blood Count 7.22 K/uL Red Blood Count 3.87 M/uL Hemoglobin 10.5 g/dL Hematocrit 32.5 % Mean Corpuscular Volume 84.0 fL Mean Corpuscular Hemoglobin 27.1 pg Mean Corpuscular Hemoglobin Concent 32.3 g/dl Platelet Count 204 K/uL Mean Platelet Volume 8.7 fL Neutrophils (%) (Auto) 76.0 % Lymphocytes (%) (Auto) 10.2 % Monocytes (%) (Auto) 10.2 % Eosinophils (%) (Auto) 2.2 % Basophils (%) (Auto) 0.3 % Neutrophils # (Auto) 5.48 K/uL Lymphocytes # (Auto) 0.74 K/uL Monocytes # (Auto) 0.74 K/uL Eosinophils # (Auto) 0.16 K/uL Basophils # (Auto) 0.02 K/uL RDW Standard Deviation 48.1 fL RDW Coefficient of Variation 15.6 % Immature Granulocyte % (Auto) 1.1 % Immature Granulocyte # (Auto) 0.08 K/uL Prothrombin Time 43.1 SECONDS Prothromb Time International Ratio 4.2 Sodium Level 128 mmol/L Potassium Level 4.0 mmol/L Chloride Level 97 mmol/L Carbon Dioxide Level 23 mmol/L Anion Gap 8.0 mmol/L Blood Urea Nitrogen 47 mg/dl Creatinine 2.90 mg/dl Est Creatinine Clear Calc Drug Dose 15.2 ml/min Estimated GFR () 17.1 Estimated GFR (Non- 14.8 BUN/Creatinine Ratio 16.1 Random Glucose 92 mg/dl Calcium Level 7.5 mg/dl Magnesium Level 2.0 mg/dl Test 04/11/17 06:41 Bedside Glucose 91 mg/dl Assessment & Plan Echocardiogram done prior to receiving chemotherapy in November of last year showed an LV that was mildly depressed with an LVEF measured at 45% at that time. The patient seems to be slowly recovering. Today I told her that I doubt very much that she will be a candidate for chemotherapy in the very near future if ever. Radiation therapy will not be given further and I believe at this juncture it is important to begin an aromatase inhibitor for her breast cancer. I reviewed this with her and her relative in the room today. I reviewed it as Arimidex given at 1 mg a day for the next 5-10 years (probably 10 years in her case). I reviewed the major potential side effects of hot flashes. Vaginal bleeding should be reported. There is a very small risk of blood clot however she is on Coumadin and I suspect she will be on Coumadin going forward so this should be even less of an issue and then finally as years go by osteoporosis could become an issue. She will be asked to take calcium and vitamin D as she visits our clinic. She understood and is willing to begin. With that then anastrozole (arimidex) will be prescribed today.
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
[2017-04-11] MEDS ORDERED: FUROSEMIDE INJ 60 MG in SYRINGE 0 ML IV ONE (11:00)
--- NOTE | 2017-04-11 15:24 | CARDIOLOGY PROGRESS NOTE ---
DATE: 04/11/2017 CARDIOLOGY CONSULTATION FOLLOWUP NOTE The patient was seen and examined. Chart, medications, and telemetry were reviewed. Clinically looks improved this morning, though profound diuresis not manifested. Heart rates are trending better. Blood pressures are controlled. The patient notes some improvement in appetite and is attempting to take greater oral intake. OBJECTIVE: VITAL SIGNS: Heart rate is 83 and blood pressure is 122/77. NECK: Thick. There is no distinct jugular venous distention. LUNGS: Reveal fine crackles, basilar. CARDIOVASCULAR: Regular. There is no S3 gallop. ABDOMEN: Soft. Chest reveals healing wounds. EXTREMITIES: Without palpable edema. LABORATORY DATA: White cell count 7.2 and hemoglobin is 10.5. Sodium is 128, potassium is 4.0, chloride is 97, bicarbonate is 23, BUN is 47, and creatinine is 2.9. IMPRESSION: Complex history with recent presentation with septic shock, newly observed diffuse cardiomyopathy, likely mixed etiology. Strong suspicion for catecholamine mediated complaints. PLAN: Once again, further titration of her Toprol to 50 mg t.i.d. All other medications will be continued. Exam does not reflect acute volume overload currently, though she has responded gradually to diuresis. We will need to watch renal function as per nephrology.
[2017-04-11] MEDS: WARFARIN SOD 2 MG TAB PO SCH (15:36)
--- NOTE | 2017-04-11 16:28 | DIAGNOSTIC IMAGING REPORT ---
EXAMINATION: RENAL ULTRASOUND CLINICAL HISTORY: Acute renal injury COMPARISON STUDY: CT scan dated 02/07/2017 FINDINGS: The right kidney measures 11.1 cm. The left kidney measures 10.8 cm. There is no evidence of hydronephrosis. There are no renal masses. There is trace fluid adjacent the lower pole the left kidney. The bladder was empty. There is indwelling Cruz catheter. There is minimal pelvic ascites. IMPRESSION : 1. Minimal ascites 2. No renal masses identified. No evidence of hydronephrosis. Electronically signed by: Elie Christie M.D. 04/11/2017 4:27 PM Dictated Date/Time: 04/11/2017 4:25 PM
--- NOTE | 2017-04-11 16:47 | Progress Note ---
Subjective Date of Service: Apr 11, 2017. Subjective Pt evaluation today including: conversation w/ patient, conversation w/ family Patient reports feeling well. Patient has no pain. Only complaint is that patient's appetite remains low. Problem List Medical Problems: (1) Acute renal failure Status: Acute (2) Bilateral pulmonary embolism Status: Chronic (3) Elevated LFTs Status: Acute (4) Hematuria Status: Acute (5) Orthostatic hypertension Status: Acute (6) Sepsis Status: Acute (7) Sepsis affecting skin Status: Acute (8) Septic shock Status: Acute (9) Supratherapeutic INR Status: Acute (10) Supratherapeutic INR Status: Acute Review of Systems Constitutional: No see HPI, No fever Eyes: No worsening of vision, No eye pain Respiratory: No see HPI, No cough, No sputum Cardiac: No chest pain Abdomen: No pain, No nausea Musculoskeletal: No joint pain Neurologic: No memory loss, No paralysis Heme: No abnormal bleeding/bruising Endo: No fatigue Skin: No rash All Other Systems: Reviewed and Negative Medications Current Inpatient Medications Medications (Trade) Dose Ordered Sig/Sendy Route Start Time Stop Time Status Last Admin Dose Admin Acetaminophen (Tylenol Tab) 650 mg Q4H PRN PO 04/04/17 18:30 05/04/17 18:29 Al Hydrox/Mg Hydrox/Simethicone (Maalox Max Susp) 15 ml Q4H PRN PO 04/04/17 18:30 05/04/17 18:29 Magnesium Hydroxide (Milk Of Magnesia Susp) 30 ml Q12H PRN PO 04/04/17 18:30 05/04/17 18:29 Ondansetron HCl (Zofran Inj) 4 mg Q6H PRN IV 04/04/17 18:30 05/04/17 18:29 04/11/17 07:30 4 MG Polyethylene (Miralax Powder Packet) 17 gm DAILY PRN PO 04/04/17 18:30 05/04/17 18:29 Albuterol (Ventolin Hfa Inhaler) 1 puffs Q4H PRN INH 04/04/17 18:30 05/04/17 18:29 Pantoprazole Sodium (Protonix Tab) 40 mg QAM PO 04/05/17 09:00 05/05/17 08:59 04/11/17 07:30 40 MG Rosuvastatin Calcium (Crestor Tab) 40 mg HS PO 04/04/17 21:00 05/04/17 20:59 04/11/17 20:22 40 MG Fluticasone Propionate (Flovent Hfa 110MCG Inhaler) 2 puffs BID INH 04/04/17 21:00 05/04/17 20:59 04/11/17 20:21 2 PUFFS Ranitidine HCl (zANTac TAB) 150 mg HS PO 04/04/17 21:00 05/04/17 20:59 04/11/17 20:23 150 MG Heparin Sodium (Porcine) (Heparin 10 Unit/ ml 5 ml Flush) 5 ml PRN PRN FLUSH 04/06/17 03:30 05/06/17 03:29 Insulin Aspart (novoLOG ASPART) SLIDING SCALE If C... ACHS SC 04/06/17 16:00 05/06/17 15:59 Glucose (Glucose 40% Gel) 15-30 GRAMS 15 GRAMS... UD PRN PO 04/06/17 14:15 05/06/17 14:14 Glucose (Glucose Chew Tab) 4-8 Tablets 4 Tabl... UD PRN PO 04/06/17 14:15 05/06/17 14:14 Dextrose (Dextrose 50% 50ML Syringe) 25-50ML OF 50% DW IV FOR... UD PRN IV 04/06/17 14:15 05/06/17 14:14 Glucagon (Glucagon Inj) 1 mg UD PRN SQ 04/06/17 14:15 05/06/17 14:14 Enteral Nutritional Formula (Boost Glucose Control) 1 can BID@1000,2100 PO 04/06/17 21:00 05/06/17 20:59 04/11/17 20:20 1 CAN Lisinopril (Zestril Tab) 10 mg QAM PO 04/08/17 09:00 05/08/17 08:59 Future Hold 04/08/17 07:29 10 MG Metoclopramide HCl (Reglan Tab) 5 mg BID@0700,1600 PO 04/07/17 17:30 05/07/17 17:29 04/11/17 16:43 5 MG Morphine Sulfate (MoRPHine SULFATE INJ) 1 mg Q4 PRN IV 04/08/17 08:30 04/22/17 08:29 Lactobacillus Acidophilus (Floranex Tab) 4 tab TIDM PO 04/08/17 16:45 05/08/17 16:44 04/11/17 16:43 4 TAB Diphenoxylate HCl/ Atropine (Lomotil Tab) 1 tab Q4 PRN PO 04/08/17 12:30 05/08/17 12:29 Doxycycline Hyclate (Vibramycin Cap) 100 mg BID PO 04/08/17 21:00 04/18/17 20:59 04/11/17 20:22 100 MG Warfarin Sodium (Coumadin Tab) 2 mg DAILY@16 PO 04/08/17 16:00 05/08/17 15:59 04/10/17 16:39 2 MG Furosemide 40 mg/ Syringe 4 ml @ 4 mls/min Q12 IV 04/08/17 21:00 05/08/17 11:59 Future Hold 04/09/17 08:24 4 MLS/MIN Aspirin (Ecotrin Tab) 81 mg QAM PO 04/09/17 09:00 05/09/17 08:59 04/11/17 07:31 81 MG Furosemide 40 mg/ Syringe 4 ml @ 4 mls/min BID IV 04/10/17 21:00 05/10/17 20:59 Future Hold 04/10/17 19:36 4 MLS/MIN Anastrozole (Arimidex Tab) 1 mg QAM PO 04/12/17 09:00 05/12/17 08:59 Metoprolol Succinate (Toprol Xl Tab) 50 mg TID PO 04/11/17 14:00 05/08/17 08:59 04/11/17 20:21 50 MG Objective Vital Signs Date Time Temp Pulse Resp B/P (MAP) Pulse Ox O2 Delivery O2 Flow Rate FiO2 04/11/17 15:30 36.5 86 20 123/78 (93) 95 Room Air 04/11/17 12:00 Room Air 04/11/17 10:53 36.4 83 18 122/77 (92) 96 Room Air 04/11/17 08:00 Room Air 04/11/17 07:26 36.4 84 20 118/77 (91) 95 Room Air 04/11/17 04:00 Room Air 04/11/17 03:55 36.4 87 20 113/71 (85) 93 Room Air 04/11/17 00:15 Room Air 04/10/17 23:28 36.7 90 21 115/75 (88) 94 Room Air 04/10/17 20:00 Room Air 04/10/17 20:00 36.5 99 20 136/80 (98) 93 Room Air Physical Exam Comments: General Appearance: WD/WN, no apparent distress Eyes: normal inspection, EOMI, sclerae normal Neck: supple, no adenopathy, no JVD, trachea midline Respiratory/Chest: chest non-tender, no respiratory distress, no accessory muscle use, + decreased breath sounds (bases) Cardiovascular: no edema, no gallop, no JVD, no murmur, regular rate Abdomen: normal bowel sounds, non tender, soft, no organomegaly Extremities: normal range of motion, non-tender, normal inspection, no pedal edema, no calf tenderness, pelvis stable Neurologic/Psychiatric: multicultural services librarian II-XII nml as tested, alert, normal mood/affect, oriented x 3, + motor weakness (generalized) Skin: + pertinent finding (right breast radiation burn, left breast wound, vac removed) Laboratory Results Last 24 Hours Test 04/10/17 20:12 04/11/17 04:28 04/11/17 06:41 04/11/17 11:00 Bedside Glucose 130 mg/dl 91 mg/dl White Blood Count 7.22 K/uL Red Blood Count 3.87 M/uL Hemoglobin 10.5 g/dL Hematocrit 32.5 % Mean Corpuscular Volume 84.0 fL Mean Corpuscular Hemoglobin 27.1 pg Mean Corpuscular Hemoglobin Concent 32.3 g/dl Platelet Count 204 K/uL Mean Platelet Volume 8.7 fL Neutrophils (%) (Auto) 76.0 % Lymphocytes (%) (Auto) 10.2 % Monocytes (%) (Auto) 10.2 % Eosinophils (%) (Auto) 2.2 % Basophils (%) (Auto) 0.3 % Neutrophils # (Auto) 5.48 K/uL Lymphocytes # (Auto) 0.74 K/uL Monocytes # (Auto) 0.74 K/uL Eosinophils # (Auto) 0.16 K/uL Basophils # (Auto) 0.02 K/uL RDW Standard Deviation 48.1 fL RDW Coefficient of Variation 15.6 % Immature Granulocyte % (Auto) 1.1 % Immature Granulocyte # (Auto) 0.08 K/uL Prothrombin Time 43.1 SECONDS Prothromb Time International Ratio 4.2 Sodium Level 128 mmol/L Potassium Level 4.0 mmol/L Chloride Level 97 mmol/L Carbon Dioxide Level 23 mmol/L Anion Gap 8.0 mmol/L Blood Urea Nitrogen 47 mg/dl Creatinine 2.90 mg/dl Est Creatinine Clear Calc Drug Dose 15.2 ml/min Estimated GFR () 17.1 Estimated GFR (Non- 14.8 BUN/Creatinine Ratio 16.1 Random Glucose 92 mg/dl Calcium Level 7.5 mg/dl Magnesium Level 2.0 mg/dl Urine Color YELLOW Urine Appearance CLOUDY Urine pH 5.0 Urine Specific [place] 1.017 Urine Protein 1+ Urine Glucose (UA) NEG Urine Ketones NEG Urine Occult Blood 3+ Urine Nitrite NEG Urine Bilirubin NEG Urine Urobilinogen NEG Urine Leukocyte Esterase NEG Urine WBC (Auto) 1-5 /hpf Urine RBC (Auto) >30 /hpf Urine Hyaline Casts (Auto) 5-10 /lpf Urine Epithelial Cells (Auto) 5-10 /lpf Urine Bacteria (Auto) NEG Urine Crystals See comments Urine Pathogenic Casts 0-3 GRANULAR CASTS /lpf Urine Yeast (Auto) Test 04/11/17 11:03 04/11/17 16:27 Bedside Glucose 112 mg/dl 95 mg/dl Assessment and Plan This patient is a 81 y/o female with a history of right breast lobular carcinoma , HTN, HLD, CAD, COPD, CKD stage II-III, diet controlled DM II, h/o multiple PE' s on chronic anticoagulation and GERD who presented to the ED on 04/04 with hypotension and malaise. She remained hypotensive despite fluid boluses and was admitted to the ICU in case of need for vasopressors. CXR with left base atelectasis, otherwise negative on admission. EKG no ischemic changes. WBC 14.18. Creatinine 2.33. POC lactic acid 2.81. LFTs elevated. INR over 8, had been just 2.0 on 04/01. 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 Mcdonald will increase beta blockade with metoprolol 50mg TID, cannot give BRIAN due to renal function difficult to diurese due to hypoalbuminemia less pulmonary edema today despite not much diuresis - AGUSTIN: POA due to septic shock, Cr recovered and then back up to 2.3 with diuresis/lasix use Cr up to 2.9. Will repeat urine microscopy to check for muddy brown casts -- Will order renal US - Severe protein/calorie malnutrition due to poor intake, diarrhea, malignancy tolerating Boost but not enough to raise her albumin which is quite low at 1.8 making it more difficult to treat volume overload - H/o PE, on Coumadin, markedly elevated INR on admission INR 4.2 , will hold continue Coumadin 2mg daily check INR in the AM - Metastatic breast cancer to LNs-started chemotherapy but due to infiltrative injury around her port, this was discontinued. Had indeterminate pulm nodules on CT Chest in 12/2016 Has been receiving XRT to the right breast and now with radiation hagan Oncology consultation appreciated, may start anti-hormonal treatment soon as outpatient CT chest on 04/06 to re-assess pulmonary nodules: could not be accurately assessed due to effusions and atelectasis will need to be done as outpatient - CAD s/p CABG in 1994, HTN, HLD--no acute issues, hypotension now resolved resume aspirin hold Lisinopril due to AGUSTIN continue Lopressor 50mg TID Continue Crestor 40 mg PO qd COPD--stable, no exacerbation -Continue Flovent BID DM II, diet controlled- HgbA1c 5.7 glucose in good control -Continue Accu-Cheks, SSI GERD -Continue Protonix and Zantac DVT prophylaxis -INR 4.2 -MT mohamud and Alvarado Code Status -Level I, FULL RESUSCITATION STATUS. Pt states she wants 1 good attempt at resuscitation, but no more than that and nothing prolonged Continued [facility] stay due to: multiple IV medications needed, home environment unsafe for pt
[2017-04-11] MEDS: ROSUVASTATIN CALCIUM 20 MG TAB PO SCH (20:22)
[2017-04-11] MEDS: RANITIDINE HCL 150 MG TAB PO SCH (20:23)
[2017-04-12] VITALS (7 sets, daily range): BP systolic 111–131; BP diastolic 73–84; PULSE 80–98; TEMP 36.4–36.8; O2SAT 93–100
[2017-04-12 04:36] LABS: HEMOGLOBIN 10.1 g/dL (12.0-16.0); MEAN CELL VOLUME 83.6 fL (80-100); MEAN CORPUSCULAR HEMOGLOBIN 28.1 pg (25-34); MEAN CORPUSCULAR HGB CONC 33.7 g/dl (32-36); MEAN PLATELET VOLUME 8.9 fL (7.4-10.4); PLATELET COUNT 200 K/uL (130-400); RED CELL DISTRIBUTION WIDTH CV 15.3 % (11.5-14.5); WHITE BLOOD COUNT 6.77 K/uL (4.8-10.8)
[2017-04-12 05:04] LABS: CALCIUM 7.5 mg/dl (8.5-10.1); CREATININE 2.7 mg/dl (0.60-1.20)
[2017-04-12] MEDS: INSULIN ASPART 100 UNITS/ML 3 ML PEN SC SCH ×4 (07:00→20:43)
[2017-04-12] MEDS ORDERED: SODIUM CHLORIDE 0.9% 500ML 500 ML IV ONE (09:15)
[2017-04-12] MEDS: FLUTICASONE HFA 110MCG INHALER INH SCH ×2 (09:39→20:41)
[2017-04-12] MEDS: DOXYCYCLINE HYCLATE 100 MG CAP PO SCH ×2 (09:39→20:41)
[2017-04-12] MEDS: ASPIRIN 81 MG ECTAB PO SCH (09:39)
[2017-04-12] MEDS: METOCLOPRAMIDE HCL 5 MG TAB PO SCH ×2 (09:40→16:56)
[2017-04-12] MEDS: METOPROLOL SUCC 50MG EXT REL TAB PO SCH ×3 (09:40→20:41)
[2017-04-12] MEDS: PANTOprazole SOD 40 MG TAB PO SCH (09:40)
[2017-04-12] MEDS: LACTOBACILLUS ACIDOPHILUS (FLORANEX) TAB PO SCH ×3 (09:40→16:59)
[2017-04-12] MEDS: ANASTROZOLE 1 MG TAB PO SCH (09:45)
--- NOTE | 2017-04-12 09:59 | Wound Progress Note: Inpatient ---
Wound Progress Note Date of Service Apr 11, 2017. Subjective Pt evaluation today including: conversation w/ patient, physical exam, chart review Patient seen today for further evaluation of a nonhealing wound to the left breast as well as soft tissue radiation necrosis to the right chest wall and breast area. Patient states there was difficulty with irrigating VAC over the weekend. The wound VAC was removed and replaced with a wet-to-dry dressing covered with Tegaderm. Patient states she's noticed some increased odor. Patient denies any pain fever or chills. She denies any other new systemic complaints at this time. Objective Vital Signs Date Time Temp Pulse Resp B/P (MAP) Pulse Ox O2 Delivery O2 Flow Rate FiO2 04/12/17 07:20 36.4 80 16 114/73 (87) 95 Room Air 04/12/17 04:08 36.6 83 18 112/76 (88) 95 Room Air 04/12/17 04:00 Room Air 04/11/17 23:59 Room Air 04/11/17 23:59 36.6 89 18 124/81 (95) 93 Room Air 04/11/17 20:00 96 Room Air 04/11/17 19:29 36.6 88 22 125/77 (93) 95 Room Air 04/11/17 16:00 95 Room Air 04/11/17 15:30 36.5 86 20 123/78 (93) 95 Room Air 04/11/17 12:00 Room Air 04/11/17 10:53 36.4 83 18 122/77 (92) 96 Room Air Physical Exam Notes: Patients vital signs were reviewed and found to be unremarkable patient is afebrile the right chest wall and breast area shows significant improvement with marked decrease areas of eschar formation. Good epithelialization is evolving throughout. No Central slough is noted. The left breast wound area today measures 7 x 13 x 1 cm with a 3 cm Tylenol at 10:00. There is significant undermining also present in the superior portion of the wound area between approximately 10 and 2:00. Central slough with some eschar formation is noted throughout. Increased odor is noted. Some minimal periwound erythema is also noted. No active drainage present. No pain to palpation or fluctuance in the periphery noted. Laboratory Results Last 24 Hours Test 04/11/17 11:00 04/11/17 11:03 04/11/17 16:27 04/11/17 20:06 Urine Color YELLOW Urine Appearance CLOUDY Urine pH 5.0 Urine Specific [place] 1.017 Urine Protein 1+ Urine Glucose (UA) NEG Urine Ketones NEG Urine Occult Blood 3+ Urine Nitrite NEG Urine Bilirubin NEG Urine Urobilinogen NEG Urine Leukocyte Esterase NEG Urine WBC (Auto) 1-5 /hpf Urine RBC (Auto) >30 /hpf Urine Hyaline Casts (Auto) 5-10 /lpf Urine Epithelial Cells (Auto) 5-10 /lpf Urine Bacteria (Auto) NEG Urine Crystals See comments Urine Pathogenic Casts 0-3 GRANULAR CASTS /lpf Urine Yeast (Auto) Bedside Glucose 112 mg/dl 95 mg/dl 104 mg/dl Test 04/12/17 04:06 04/12/17 06:42 White Blood Count 6.77 K/uL Red Blood Count 3.59 M/uL Hemoglobin 10.1 g/dL Hematocrit 30.0 % Mean Corpuscular Volume 83.6 fL Mean Corpuscular Hemoglobin 28.1 pg Mean Corpuscular Hemoglobin Concent 33.7 g/dl RDW Standard Deviation 47.0 fL RDW Coefficient of Variation 15.3 % Platelet Count 200 K/uL Mean Platelet Volume 8.9 fL Sodium Level 130 mmol/L Potassium Level 4.0 mmol/L Chloride Level 96 mmol/L Carbon Dioxide Level 22 mmol/L Anion Gap 12.0 mmol/L Blood Urea Nitrogen 56 mg/dl Creatinine 2.70 mg/dl Est Creatinine Clear Calc Drug Dose 16.4 ml/min Estimated GFR () 18.7 Estimated GFR (Non- 16.1 BUN/Creatinine Ratio 20.8 Random Glucose 85 mg/dl Calcium Level 7.5 mg/dl Bedside Glucose 91 mg/dl Assessment and Plan Assessment: Nonhealing wound left breast Soft tissue radionecrosis right breast Plan: The left breast area did require debridement. With the patient's permission and after the application of topical Xylocaine 4% the sites were debrided of central slough and eschar. Some subcutaneous tissue with the use of a #5 curette, scissors and forceps. No significant bleeding occurred. The right breast will continue be dressed as before. Left breast will be managed with irrigating wound VAC black foam 125 mm of negative pressure wound VAC irrigation 10 minutes followed by 2 hours with VAC therapy. Patient will continue to be monitored during her hospital course. This represented an excisional debridement of approximately 84 cm.
--- NOTE | 2017-04-12 10:33 | Nephrology Progress Note ---
Nephrology Progress Note Date of Service Apr 12, 2017. Chief Complaint AGUSTIN Subjective Ms. Valdez was seen & examined in her hospital room this morning. She denied fever, angina, dyspnea or uremic symptoms. She voiced no new medical concerns. Review of Systems Constitutional: No fever Cardiovascular: No chest pain Respiratory: No dyspnea at rest Abdomen: No pain, No nausea, No vomiting Extremities: No leg edema A complete review of systems was performed. Pertinent positives are noted above. All other systems are negative. Vital Signs Last 8 Hrs Date Time Temp Pulse Resp B/P (MAP) Pulse Ox O2 Delivery O2 Flow Rate FiO2 04/12/17 07:20 36.4 80 16 114/73 (87) 95 Room Air 04/12/17 04:08 36.6 83 18 112/76 (88) 95 Room Air 04/12/17 04:00 Room Air Last Recorded Weight Weight (Kilograms): 83.300 Physical Exam General Appearance: no apparent distress Head: normocephalic, atraumatic Eyes: PERRL, EOMI Neck: no adenopathy Respiratory/Chest: lungs clear, no respiratory distress Cardiovascular: regular rate, rhythm, no murmur Abdomen/GI: normal bowel sounds, non tender, soft Extremities/Musculoskelatal: no calf tenderness, no pedal edema Neurologic/Psych: alert, oriented x 3 Family History Cancer Diabetes mellitus Myocardial infarction Social History Smoking Status: Former smoker Smokeless Tobacco Use: No Alcohol Use: none Drug Use: none Marital Status: Housing Status: lives alone Occupation: retired Laboratory Results Past 24 Hours 04/12/17 04:06 04/12/17 04:06 Test 04/11/17 11:00 04/11/17 11:03 04/11/17 16:27 04/11/17 20:06 Urine Color YELLOW Urine Appearance CLOUDY (CLEAR) Urine pH 5.0 (4.5-7.5) Urine Specific [place] 1.017 (1.000-1.030) Urine Protein 1+ (NEG) Urine Glucose (UA) NEG (NEG) Urine Ketones NEG (NEG) Urine Occult Blood 3+ (NEG) Urine Nitrite NEG (NEG) Urine Bilirubin NEG (NEG) Urine Urobilinogen NEG (NEG) Urine Leukocyte Esterase NEG (NEG) Urine WBC (Auto) 1-5 /hpf (0-5) Urine RBC (Auto) >30 /hpf (0-4) Urine Hyaline Casts (Auto) 5-10 /lpf (0-5) Urine Epithelial Cells (Auto) 5-10 /lpf (0-5) Urine Bacteria (Auto) NEG (NEG) Urine Crystals See comments (NONE PRSENT) Urine Pathogenic Casts 0-3 GRANULAR CASTS /lpf (0) Urine Yeast (Auto) (NONE PRSENT) Bedside Glucose 112 mg/dl (70-90) 95 mg/dl (70-90) 104 mg/dl (70-90) Test 04/12/17 04:06 04/12/17 06:42 Red Blood Count 3.59 M/uL (4.2-5.4) Mean Corpuscular Volume 83.6 fL (80-100) Mean Corpuscular Hemoglobin 28.1 pg (25-34) Mean Corpuscular Hemoglobin Concent 33.7 g/dl (32-36) RDW Standard Deviation 47.0 fL (36.4-46.3) RDW Coefficient of Variation 15.3 % (11.5-14.5) Mean Platelet Volume 8.9 fL (7.4-10.4) Anion Gap 12.0 mmol/L (3-11) Est Creatinine Clear Calc Drug Dose 16.4 ml/min Estimated GFR () 18.7 Estimated GFR (Non- 16.1 BUN/Creatinine Ratio 20.8 (10-20) Calcium Level 7.5 mg/dl (8.5-10.1) Bedside Glucose 91 mg/dl (70-90) Allergies Coded Allergies: Nitroglycerin (Verified Allergy, Intermediate, BP Decreases, HR Increases , 04/04/17) REACTION WITH SUBLINGUAL PER RECORDS Medications Current Inpatient Medications Medications (Trade) Dose Ordered Sig/Sendy Route Start Time Stop Time Status Last Admin Dose Admin Acetaminophen (Tylenol Tab) 650 mg Q4H PRN PO 04/04/17 18:30 05/04/17 18:29 Al Hydrox/Mg Hydrox/Simethicone (Maalox Max Susp) 15 ml Q4H PRN PO 04/04/17 18:30 05/04/17 18:29 Magnesium Hydroxide (Milk Of Magnesia Susp) 30 ml Q12H PRN PO 04/04/17 18:30 05/04/17 18:29 Ondansetron HCl (Zofran Inj) 4 mg Q6H PRN IV 04/04/17 18:30 05/04/17 18:29 04/11/17 07:30 4 MG Polyethylene (Miralax Powder Packet) 17 gm DAILY PRN PO 04/04/17 18:30 05/04/17 18:29 Albuterol (Ventolin Hfa Inhaler) 1 puffs Q4H PRN INH 04/04/17 18:30 05/04/17 18:29 Pantoprazole Sodium (Protonix Tab) 40 mg QAM PO 04/05/17 09:00 05/05/17 08:59 04/12/17 09:40 40 MG Rosuvastatin Calcium (Crestor Tab) 40 mg HS PO 04/04/17 21:00 05/04/17 20:59 04/11/17 20:22 40 MG Fluticasone Propionate (Flovent Hfa 110MCG Inhaler) 2 puffs BID INH 04/04/17 21:00 05/04/17 20:59 04/12/17 09:39 2 PUFFS Ranitidine HCl (zANTac TAB) 150 mg HS PO 04/04/17 21:00 05/04/17 20:59 04/11/17 20:23 150 MG Heparin Sodium (Porcine) (Heparin 10 Unit/ ml 5 ml Flush) 5 ml PRN PRN FLUSH 04/06/17 03:30 05/06/17 03:29 Insulin Aspart (novoLOG ASPART) SLIDING SCALE If C... ACHS SC 04/06/17 16:00 05/06/17 15:59 Glucose (Glucose 40% Gel) 15-30 GRAMS 15 GRAMS... UD PRN PO 04/06/17 14:15 05/06/17 14:14 Glucose (Glucose Chew Tab) 4-8 Tablets 4 Tabl... UD PRN PO 04/06/17 14:15 05/06/17 14:14 Dextrose (Dextrose 50% 50ML Syringe) 25-50ML OF 50% DW IV FOR... UD PRN IV 04/06/17 14:15 05/06/17 14:14 Glucagon (Glucagon Inj) 1 mg UD PRN SQ 04/06/17 14:15 05/06/17 14:14 Enteral Nutritional Formula (Boost Glucose Control) 1 can BID@1000,2100 PO 04/06/17 21:00 05/06/17 20:59 04/11/17 20:20 1 CAN Lisinopril (Zestril Tab) 10 mg QAM PO 04/08/17 09:00 05/08/17 08:59 Future Hold 04/08/17 07:29 10 MG Metoclopramide HCl (Reglan Tab) 5 mg BID@0700,1600 PO 04/07/17 17:30 05/07/17 17:29 04/12/17 09:40 5 MG Morphine Sulfate (MoRPHine SULFATE INJ) 1 mg Q4 PRN IV 04/08/17 08:30 04/22/17 08:29 Lactobacillus Acidophilus (Floranex Tab) 4 tab TIDM PO 04/08/17 16:45 05/08/17 16:44 04/12/17 09:40 4 TAB Diphenoxylate HCl/ Atropine (Lomotil Tab) 1 tab Q4 PRN PO 04/08/17 12:30 05/08/17 12:29 Doxycycline Hyclate (Vibramycin Cap) 100 mg BID PO 04/08/17 21:00 04/18/17 20:59 04/12/17 09:39 100 MG Warfarin Sodium (Coumadin Tab) 2 mg DAILY@16 PO 04/08/17 16:00 05/08/17 15:59 04/10/17 16:39 2 MG Furosemide 40 mg/ Syringe 4 ml @ 4 mls/min Q12 IV 04/08/17 21:00 05/08/17 11:59 Future Hold 04/09/17 08:24 4 MLS/MIN Aspirin (Ecotrin Tab) 81 mg QAM PO 04/09/17 09:00 05/09/17 08:59 04/12/17 09:39 81 MG Furosemide 40 mg/ Syringe 4 ml @ 4 mls/min BID IV 04/10/17 21:00 05/10/17 20:59 Future Hold 04/10/17 19:36 4 MLS/MIN Anastrozole (Arimidex Tab) 1 mg QAM PO 04/12/17 09:00 05/12/17 08:59 04/12/17 09:45 1 MG Metoprolol Succinate (Toprol Xl Tab) 50 mg TID PO 04/11/17 14:00 05/08/17 08:59 04/12/17 09:40 50 MG Impression (1) Acute renal failure (2) Hypertension Nos (3) Breast cancer (4) Open wound of chest (wall), complicated (5) Anemia Ms. Valdez has breast CA dx 09/11. She required lumpectomy, chemotherapy with Adriamycin and Taxotere, and radiation therapy. This was complicated by a radiation burn and skin necrosis. She has been cared for at the wound clinic and has a wound vac in place. Ms. Valdez was admitted w/ hypotension. SBP was ~ 70 mmHg. She has a h/o ICM managed w/ BRIAN inhibitor. On admission Troponin was elevated. LVEF dropped to 20% and patient developed AGUSTIN while on BRIAN inhibitor. Evaluation for infection/ sepsis has been negative. Patient's baseline creatinine has been 0.7 - 0.8. Clinically suspect hemodynamically mediated ATN with low ejection fraction vs acute interstitial nephritis from vancomycin. Unclear etiology for significant drop in EF, ? Adriamycin toxicity Recommendations ACUTE KIDNEY INJURY: -- Creatinine has peaked at 2.9. Patient is now in the recovery phase. She is nonoliguric. Volume status & electrolyte balance are acceptable. No acute indication for HD at this time. -- Urine microscopy reveals muddy brown casts c/w ATN -- Renal US w/ 11 cm kidneys and no hydronephrosis -- Continue to hold BRIAN inhibitor HYPONATREMIA: -- Mild, asymptomatic. Gradually improving. Likely related to AGUSTIN and CHF / ICM ASCVD: -- Echocardiogram 04/14: LVEF 20 - 25% w/ global LV dysfunction -- Cardiology is titrating beta timothy dose -- CXR film 04/11/16reviewed today: CMG w/ pulmonary vascular congestion and bilateral effusions. I&O's matched yesterday. Will redose Furosemide today.
[2017-04-12] MEDS ORDERED: FUROSEMIDE INJ 60 MG in SYRINGE 0 ML IV ONE (11:00)
--- NOTE | 2017-04-12 11:10 | CARDIOLOGY PROGRESS NOTE ---
DATE: 04/12/2017 DATE: 04/12/2017 The patient seen and examined. Chart, medications, telemetry reviewed. SUBJECTIVE: The patient feels and looks better today and has started to manifest spontaneous diuresis with increased urinary outputs over the last 24 hours. Creatinine appears to have stabilized. Heart rates and blood pressure remained controlled. OBJECTIVE: VITAL SIGNS: Heart rate is 80, blood pressure is 114/73. NECK: Thin. There is no distinct jugular venous distention. LUNGS: Reveal diminished breath sounds bibasilar. CARDIOVASCULAR: Regular with normal S1, S2. There is no S3 gallop. PMI is nondisplaced. ABDOMEN: Soft, slightly less distended. EXTREMITIES: Without cyanosis or clubbing. There is no peripheral edema. LABORATORY DATA: Sodium is 130, potassium is 4.0, chloride 96, bicarbonate is 22, BUN is 56, creatinine is 2.7. Calcium level 7.5. INR is pending. White cell count 6.7, hemoglobin is 10.1. IMPRESSION: Complex patient as well outlined history of acute septic shock, underlying ischemic heart disease, though with diffuse cardiomyopathy, possible catecholamine mediated, acute renal insufficiency, now clinically improving. Urine output is improving. Renal function appears to be stabilized. Cardiac status appears stable and the patient is tolerating increased dose of beta timothy. We will continue current therapies as prescribed. Follow routinely. The patient is chronically anticoagulated due to past history of pulmonary embolus. INR is pending for today though with supratherapeutic level day prior.
[2017-04-12] MEDS: BOOST GLUCOSE CONTROL PO SCH ×2 (11:18→20:42)
[2017-04-12] MEDS: ONDANSETRON INJ 2 MG/ML 2 ML VIAL IV PRN (12:37)
[2017-04-12 13:43] LABS: INR 2.6 (0.9-1.1)
[2017-04-12] MEDS: WARFARIN SOD 1 MG TAB PO SCH (16:58)
[2017-04-12] MEDS ORDERED: SODIUM CHLORIDE 0.9% 1000ML 1,000 ML IV ONE (17:15)
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
[2017-04-12] MEDS: RANITIDINE HCL 150 MG TAB PO SCH (20:41)
[2017-04-12] MEDS: ROSUVASTATIN CALCIUM 20 MG TAB PO SCH (20:42)
[2017-04-13] VITALS (8 sets, daily range): BP systolic 104–137; BP diastolic 69–86; PULSE 79–90; TEMP 36.3–36.7; O2SAT 93–96
[2017-04-13 05:05] LABS: HEMATOCRIT 30.1 % (37-47); HEMOGLOBIN 10.3 g/dL (12.0-16.0); MEAN CELL VOLUME 83.1 fL (80-100); MEAN CORPUSCULAR HEMOGLOBIN 28.5 pg (25-34); MEAN CORPUSCULAR HGB CONC 34.2 g/dl (32-36); MEAN PLATELET VOLUME 9.1 fL (7.4-10.4); PLATELET COUNT 199 K/uL (130-400); RED CELL DISTRIBUTION WIDTH CV 15.5 % (11.5-14.5); RED CELL DISTRIBUTION WIDTH SD 47.3 fL (36.4-46.3); WHITE BLOOD COUNT 6.58 K/uL (4.8-10.8)
[2017-04-13 05:30] LABS: INR 2.1 (0.9-1.1)
[2017-04-13 05:31] LABS: CALCIUM 7.7 mg/dl (8.5-10.1); CREATININE 2.35 mg/dl (0.60-1.20); POTASSIUM 3.9 mmol/L (3.5-5.1)
[2017-04-13] MEDS: INSULIN ASPART 100 UNITS/ML 3 ML PEN SC SCH ×4 (07:00→20:37)
[2017-04-13] MEDS: METOPROLOL SUCC 50MG EXT REL TAB PO SCH ×3 (07:18→20:38)
[2017-04-13] MEDS: PANTOprazole SOD 40 MG TAB PO SCH (07:18)
[2017-04-13] MEDS: ASPIRIN 81 MG ECTAB PO SCH (07:19)
[2017-04-13] MEDS: METOCLOPRAMIDE HCL 5 MG TAB PO SCH ×2 (07:20→17:15)
[2017-04-13] MEDS: DOXYCYCLINE HYCLATE 100 MG CAP PO SCH ×2 (07:20→20:39)
[2017-04-13] MEDS: LACTOBACILLUS ACIDOPHILUS (FLORANEX) TAB PO SCH ×3 (07:22→17:15)
[2017-04-13] MEDS: FLUTICASONE HFA 110MCG INHALER INH SCH ×2 (07:23→20:38)
[2017-04-13] MEDS: ANASTROZOLE 1 MG TAB PO SCH (07:27)
[2017-04-13] MEDS: BOOST GLUCOSE CONTROL PO SCH ×2 (10:14→20:37)
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
--- NOTE | 2017-04-13 10:29 | PROGRESS NOTE ---
DATE: 04/13/2017 The patient seen and examined. Chart, medications, telemetry reviewed. SUBJECTIVE: The patient feels slightly improved today. Denies any chest pains. Notes no tachypalpitations. Blood pressure has been controlled. She continued to make urine as measured via urinary catheter and continue to have drainage from left breast site. Notes no fevers, chills or cough. Notes no edema. OBJECTIVE: VITAL SIGNS: Heart rate is 80, blood pressure is 118/84, O2 saturations 95% on room air. HEENT: Normocephalic, atraumatic. NECK: There is no jugular venous distention. LUNGS: Reveal mildly diminished breath sounds, but are clear. CARDIOVASCULAR: Regular. There is no S3 gallop. ABDOMEN: Soft. EXTREMITIES: Free of edema. LABORATORY STUDIES: Sodium is 128, potassium is 3.9, chloride 97, bicarbonate 24, BUN 60, creatinine is 2.3. INR is 2.1. IMPRESSION: A 81-year-old female with complex history as previously outlined including presentation with: 1. Presumed sepsis. 2. Post-sepsis recovery in the setting of acute renal insufficiency manifested by congestive heart failure, mixed systolic and diastolic with severe diffuse LV dysfunction, possibly catecholamine mediated. The patient appears to be clinically improving by her renal status and functional status is tolerating increased dose of Toprol. We will continue all therapies as currently prescribed. May consider future addition of low dose hydralazine and nitrates for afterload reduction as BRIAN inhibitor no longer allowed. No adjustments made today. MTDD
--- NOTE | 2017-04-13 12:55 | Wound Progress Note: Inpatient ---
Wound Progress Note Date of Service Apr 13, 2017. Subjective Pt evaluation today including: conversation w/ patient, physical exam, chart review Patient seen today for routine follow-up of postoperative wound to the left chest wall as well as soft tissue radionecrosis to the right chest wall. Patient states that there is significant improvement in her discomfort . Patient denies any other systemic complaints at this time. Objective Vital Signs Date Time Temp Pulse Resp B/P (MAP) Pulse Ox O2 Delivery O2 Flow Rate FiO2 04/13/17 11:55 36.3 84 16 129/78 (95) 96 04/13/17 08:00 Room Air 04/13/17 07:52 36.3 80 16 118/84 (95) 95 04/13/17 04:00 Room Air 04/13/17 03:54 36.7 79 16 104/69 (81) 93 04/13/17 00:00 Room Air 04/12/17 23:58 36.7 93 18 111/74 (86) 93 Room Air 04/12/17 20:30 36.8 89 18 129/83 (98) 94 Room Air 04/12/17 16:00 Room Air 04/12/17 15:46 36.5 86 22 131/82 (98) 95 Room Air Physical Exam Notes: Patients vital signs were reviewed and found unremarkable patient is afebrile. Both sites show again improvement. There is no significant slough or significant eschar formation noted in the right chest wall. No tenderness to palpation. No erythema noted. Left chest wall shows no significant central slough or surrounding eschar formation. Granulation tissue is beginning to evolve in the base. Laboratory Results Last 24 Hours Test 04/12/17 13:13 04/12/17 16:15 04/12/17 20:18 04/13/17 04:56 Prothrombin Time 26.7 SECONDS 22.0 SECONDS Prothromb Time International Ratio 2.6 2.1 Bedside Glucose 116 mg/dl 97 mg/dl White Blood Count 6.58 K/uL Red Blood Count 3.62 M/uL Hemoglobin 10.3 g/dL Hematocrit 30.1 % Mean Corpuscular Volume 83.1 fL Mean Corpuscular Hemoglobin 28.5 pg Mean Corpuscular Hemoglobin Concent 34.2 g/dl RDW Standard Deviation 47.3 fL RDW Coefficient of Variation 15.5 % Platelet Count 199 K/uL Mean Platelet Volume 9.1 fL Sodium Level 128 mmol/L Potassium Level 3.9 mmol/L Chloride Level 97 mmol/L Carbon Dioxide Level 24 mmol/L Anion Gap 7.0 mmol/L Blood Urea Nitrogen 60 mg/dl Creatinine 2.35 mg/dl Est Creatinine Clear Calc Drug Dose 18.6 ml/min Estimated GFR () 22.1 Estimated GFR (Non- 19.1 BUN/Creatinine Ratio 25.5 Random Glucose 86 mg/dl Calcium Level 7.7 mg/dl Test 04/13/17 07:02 04/13/17 11:36 Bedside Glucose 88 mg/dl 104 mg/dl Assessment and Plan Assessment: Nonhealing wound left breast Soft tissue radionecrosis right breast Plan: No debridement is indicated today. The right breast will continue be dressed as before. Left breast will be managed with irrigating wound VAC black foam 125 mm of negative pressure wound VAC irrigation 10 minutes followed by 2 hours with VAC therapy. Patient will continue to be monitored during her hospital course. Patient will continue to be monitored during her hospital course.
[2017-04-13] MEDS ORDERED: SODIUM CHLORIDE 0.9% 500ML 500 ML IV ONE (13:15)
--- NOTE | 2017-04-13 14:29 | Hematology/Oncology Prog Note ---
Hematology/Onc Progress Note Date of Service Apr 13, 2017. Diagnoses Breast carcinoma Hypotension Coronary artery disease Rule out sepsis Medications Medications Administered Medications (Trade) Dose Ordered Sig/Sendy Route Start Time Stop Time Status Last Admin Dose Admin Sodium Chloride 500 ml @ 999 mls/hr Q31M STAT IV 04/04/17 15:47 04/04/17 16:17 DC 04/04/17 16:23 999 MLS/HR Sodium Chloride 1,000 ml @ 999 mls/hr Q1H1M STAT IV 04/04/17 16:50 04/04/17 17:50 DC 04/04/17 17:05 999 MLS/HR Daptomycin 500 mg/ Sodium Chloride 60 ml @ 100 mls/hr NOW STAT IV 04/04/17 16:50 04/04/17 17:25 DC 04/04/17 17:30 100 MLS/HR Cefepime HCl 1000 mg/Dextrose 111 ml @ 200 mls/hr NOW STAT IV 04/04/17 16:50 04/04/17 17:23 DC 04/04/17 17:31 200 MLS/HR Sodium Chloride 1,000 ml @ 999 mls/hr Q1H1M STAT IV 04/04/17 17:59 04/04/17 18:59 DC 04/04/17 18:24 999 MLS/HR Ondansetron HCl (Zofran Inj) 4 mg Q6H PRN IV 04/04/17 18:30 05/04/17 18:29 04/12/17 12:37 4 MG Pantoprazole Sodium (Protonix Tab) 40 mg QAM PO 04/05/17 09:00 05/05/17 08:59 04/13/17 07:18 40 MG Rosuvastatin Calcium (Crestor Tab) 40 mg HS PO 04/04/17 21:00 05/04/17 20:59 04/12/17 20:42 40 MG Fluticasone Propionate (Flovent Hfa 110MCG Inhaler) 2 puffs BID INH 04/04/17 21:00 05/04/17 20:59 04/13/17 07:23 2 PUFFS Ranitidine HCl (zANTac TAB) 150 mg HS PO 04/04/17 21:00 05/04/17 20:59 04/12/17 20:41 150 MG Phytonadione (Mephyton Tab) 5 mg NOW STAT PO 04/04/17 18:17 04/04/17 18:40 DC 04/04/17 19:34 5 MG Vancomycin HCl 2000 mg/Sodium Chloride 540 ml @ 200 mls/hr NOW STAT IV 04/04/17 18:49 04/04/17 21:30 DC 04/04/17 19:14 200 MLS/HR Piperacillin Sod/ Tazobactam Sod 3.375 gm/Dextrose 115 ml @ 230 mls/hr NOW STAT IV 04/04/17 19:54 04/04/17 20:23 DC 04/04/17 21:49 230 MLS/HR Piperacillin Sod/ Tazobactam Sod 4.5 gm/Dextrose 120 ml @ 30 mls/hr Q12@0400,1600 IV 04/05/17 04:00 04/05/17 20:00 DC 04/05/17 16:30 30 MLS/HR Potassium Chloride/Sodium Chloride 1,000 ml @ 80 mls/hr [id number] IV 04/04/17 21:15 04/06/17 13:45 DC 04/06/17 00:49 80 MLS/HR Sodium Chloride 250 ml @ 999 mls/hr Q16M IV 04/04/17 22:30 04/04/17 22:45 DC 04/04/17 22:45 999 MLS/HR Sodium Chloride 250 ml @ 999 mls/hr Q16M IV 04/05/17 02:00 04/05/17 02:15 DC 04/05/17 02:16 999 MLS/HR Sodium Chloride 250 ml @ 999 mls/hr Q16M IV 04/05/17 04:30 04/05/17 04:45 DC 04/05/17 05:20 999 MLS/HR Vancomycin HCl 1000 mg/Sodium Chloride 270 ml @ 125 mls/hr Q24H IV 04/05/17 08:00 04/06/17 14:37 DC 04/06/17 07:50 125 MLS/HR Piperacillin Sod/ Tazobactam Sod 4.5 gm/Dextrose 120 ml @ 30 mls/hr Q8H IV 04/06/17 00:00 04/08/17 12:21 DC 04/08/17 07:28 30 MLS/HR Potassium Phosphate 9 mmol/ Sodium Chloride 253 ml @ 88 mls/hr NOW ONCE IV 04/05/17 21:30 04/06/17 00:22 DC 04/05/17 21:42 88 MLS/HR Enteral Nutritional Formula (Boost Plus Vanilla) 1 can TID PO 04/06/17 14:00 04/06/17 17:09 DC 04/06/17 14:07 1 CAN Vancomycin HCl 1000 mg/Sodium Chloride 270 ml @ 125 mls/hr Q18H IV 04/07/17 02:00 04/08/17 12:21 DC 04/07/17 20:36 125 MLS/HR Enteral Nutritional Formula (Boost Glucose Control) 1 can BID@1000,2100 PO 04/06/17 21:00 05/06/17 20:59 04/13/17 10:14 1 CAN Furosemide 20 mg/ Albumin Human 52 ml @ 54 mls/hr Q12H IV 04/06/17 18:00 04/08/17 12:21 DC 04/08/17 06:42 54 MLS/HR Phytonadione (Mephyton Tab) 2.5 mg NOW ONCE PO 04/06/17 17:45 04/06/17 17:46 DC 04/06/17 17:48 2.5 MG Furosemide 20 mg/ Syringe 2 ml @ 4 mls/min 1430 ONCE IV 04/07/17 14:30 04/07/17 14:31 DC 04/07/17 14:38 4 MLS/MIN Furosemide 20 mg/ Syringe 2 ml @ 4 mls/min Q12@0600,1800 IV 04/08/17 06:00 04/08/17 08:02 DC 04/08/17 07:41 4 MLS/MIN Metoprolol Succinate (Toprol Xl Tab) 50 mg QAM PO 04/08/17 09:00 04/09/17 11:36 DC 04/09/17 08:23 50 MG Lisinopril (Zestril Tab) 10 mg QAM PO 04/08/17 09:00 05/08/17 08:59 Future Hold 04/08/17 07:29 10 MG Metoprolol Tartrate (Lopressor Iv) 5 mg ONE ONCE IV 04/07/17 17:15 04/07/17 17:16 DC 04/07/17 17:36 5 MG Metoprolol Succinate (Toprol Xl Tab) 50 mg ONE ONCE PO 04/07/17 17:15 04/07/17 17:16 DC 04/07/17 17:36 50 MG Metoclopramide HCl (Reglan Tab) 5 mg BID@0700,1600 PO 04/07/17 17:30 05/07/17 17:29 04/13/17 07:20 5 MG Furosemide 40 mg/ Syringe 4 ml @ 4 mls/min Q6 IV 04/08/17 12:00 04/08/17 16:12 DC 04/08/17 11:23 4 MLS/MIN Lactobacillus Acidophilus (Floranex Tab) 4 tab TIDM PO 04/08/17 16:45 05/08/17 16:44 04/13/17 12:50 4 TAB Doxycycline Hyclate (Vibramycin Cap) 100 mg BID PO 04/08/17 21:00 04/18/17 20:59 04/13/17 07:20 100 MG Warfarin Sodium (Coumadin Tab) 2 mg DAILY@16 PO 04/08/17 16:00 04/12/17 14:53 DC 04/10/17 16:39 2 MG Furosemide 40 mg/ Syringe 4 ml @ 4 mls/min Q12 IV 04/08/17 21:00 05/08/17 11:59 Future Hold 04/09/17 08:24 4 MLS/MIN Aspirin (Ecotrin Tab) 81 mg QAM PO 04/09/17 09:00 05/09/17 08:59 04/13/17 07:19 81 MG Metoprolol Succinate (Toprol Xl Tab) 25 mg QID PO 04/09/17 13:00 04/11/17 12:36 DC 04/11/17 10:57 25 MG Metolazone (Zaroxolyn Tab) 5 mg NOW ONCE PO 04/09/17 15:00 04/09/17 15:22 DC 04/09/17 15:35 5 MG Furosemide 40 mg/ Albumin Human 54 ml @ 54 mls/hr ONE ONCE IV 04/09/17 15:00 04/09/17 15:59 DC 04/09/17 16:13 54 MLS/HR Furosemide 40 mg/ Syringe 4 ml @ 4 mls/min BID IV 04/10/17 21:00 05/10/17 20:59 Future Hold 04/10/17 19:36 4 MLS/MIN Anastrozole (Arimidex Tab) 1 mg QAM PO 04/12/17 09:00 05/12/17 08:59 04/13/17 07:27 1 MG Furosemide 60 mg/ Syringe 6 ml @ 4 mls/min ONE ONCE IV 04/11/17 11:00 04/11/17 11:01 DC 04/11/17 11:47 4 MLS/MIN Metoprolol Succinate (Toprol Xl Tab) 50 mg TID PO 04/11/17 14:00 05/08/17 08:59 04/13/17 13:55 50 MG Sodium Chloride 500 ml @ 999 mls/hr Q31M ONCE IV 04/12/17 09:15 04/12/17 09:45 DC 04/12/17 09:15 999 MLS/HR Furosemide 60 mg/ Syringe 6 ml @ 4 mls/min ONE ONCE IV 04/12/17 11:00 04/12/17 11:01 DC 04/12/17 11:13 4 MLS/MIN Warfarin Sodium (Coumadin Tab) 1 mg DAILY@16 PO 04/12/17 16:00 05/12/17 15:59 04/12/17 16:58 1 MG Sodium Chloride 1,000 ml @ 100 mls/hr Q10H ONCE IV 04/12/17 17:15 04/13/17 03:14 DC 04/12/17 18:12 100 MLS/HR Sodium Chloride 500 ml @ 250 mls/hr Q2H ONCE IV 04/13/17 13:15 04/13/17 15:14 04/13/17 13:15 250 MLS/HR Subjective She is doing well. She really offers no new complaints now on Arimidex and seems to be tolerating it well Review of Systems: Constitutional: Negative for night sweats, or fever Eyes: Negative for event change of vision ENT: Negative for epistaxis, nasal discharge, sore throat, or deafness Cardiovascular: Negative for chest pain, palpitations, dizziness, diaphoresis Respiratory: Negative for new shortness of breath,hemoptysis, or purulent cough Gastrointestinal: Negative for diarrhea, hematemesis, melena, nausea, vomiting , or dyspepsia Integumentary (skin): Negative for rash or jaundice discoloration Neurological: Negative for weakness, seizure activity, headache, or dizziness Lymphatic/Hematologic: Negative for petechiae, bleeding or new adenopathy Musculoskeletal: Negative for new joint or back pain Allergic/Immunologic: Negative for unusual rash or pruritis. Vital Signs Vital Signs Past 12 Hours Date Time Temp Pulse Resp B/P (MAP) Pulse Ox O2 Delivery O2 Flow Rate FiO2 04/13/17 12:00 Room Air 04/13/17 11:55 36.3 84 16 129/78 (95) 96 04/13/17 08:00 Room Air 04/13/17 07:52 36.3 80 16 118/84 (95) 95 04/13/17 04:00 Room Air 04/13/17 03:54 36.7 79 16 104/69 (81) 93 Physical Exam Constitutional: vitals are stable. Eyes: Eyes are NOAH EOMI without conjuctival erythema or icterus. ENT: External examination was negative for masses. Neck: Negative for masses or palpable thyromegaly Respiratory: Lung sounds were generally clear bilaterally Cardiovascular: Heart was RRR without significant murmur, gallops aoe rubs Gastrointestinal: No palpable hepatic or splenomegaly. The abdomen was soft with normal bowel sounds. Lymphatic system: there was no palpable peripheral lymphadenopathy Musculoskeletal System: The musculoskeletal system seemed concordant with age. Skin: The skin was negative for jaundice. Neurologic exam: The exam was negative for any focal findings. Deep tendon reflexes were equal and symmetrical. Psychiatric exam: Was essentially negative with normal mood and effect. Breast exam: Chest wall remains bandage referred to examination by the wound consultants Extremities: Negative for edema erythema Laboratory Last 24 Hours Test 04/12/17 16:15 04/12/17 20:18 04/13/17 04:56 04/13/17 07:02 Bedside Glucose 116 mg/dl 97 mg/dl 88 mg/dl White Blood Count 6.58 K/uL Red Blood Count 3.62 M/uL Hemoglobin 10.3 g/dL Hematocrit 30.1 % Mean Corpuscular Volume 83.1 fL Mean Corpuscular Hemoglobin 28.5 pg Mean Corpuscular Hemoglobin Concent 34.2 g/dl RDW Standard Deviation 47.3 fL RDW Coefficient of Variation 15.5 % Platelet Count 199 K/uL Mean Platelet Volume 9.1 fL Prothrombin Time 22.0 SECONDS Prothromb Time International Ratio 2.1 Sodium Level 128 mmol/L Potassium Level 3.9 mmol/L Chloride Level 97 mmol/L Carbon Dioxide Level 24 mmol/L Anion Gap 7.0 mmol/L Blood Urea Nitrogen 60 mg/dl Creatinine 2.35 mg/dl Est Creatinine Clear Calc Drug Dose 18.6 ml/min Estimated GFR () 22.1 Estimated GFR (Non- 19.1 BUN/Creatinine Ratio 25.5 Random Glucose 86 mg/dl Calcium Level 7.7 mg/dl Test 04/13/17 11:36 Bedside Glucose 104 mg/dl Assessment & Plan Er positive breast cancer. Currently on anastrozole and tolerating the med well. She will be discharged with this and we will follow up in our clinic. Clinically she seems quite stable.
[2017-04-13] MEDS: WARFARIN SOD 1 MG TAB PO SCH (17:15)
[2017-04-13] MEDS: ROSUVASTATIN CALCIUM 20 MG TAB PO SCH (20:39)
[2017-04-13] MEDS: RANITIDINE HCL 150 MG TAB PO SCH (20:40)
--- NOTE | 2017-04-13 22:08 | Progress Note ---
Subjective Date of Service: Apr 13, 2017. Subjective Pt evaluation today including: conversation w/ patient Patient reports doing well. Patient has no complaints today. Problem List Medical Problems: (1) Acute renal failure Status: Acute (2) Bilateral pulmonary embolism Status: Chronic (3) Elevated LFTs Status: Acute (4) Hematuria Status: Acute (5) Orthostatic hypertension Status: Acute (6) Sepsis Status: Acute (7) Sepsis affecting skin Status: Acute (8) Septic shock Status: Acute (9) Supratherapeutic INR Status: Acute (10) Supratherapeutic INR Status: Acute Review of Systems Constitutional: No fever, No chills Respiratory: No cough, No sputum Cardiac: No chest pain, No orthopnea Abdomen: No pain, No nausea Musculoskeletal: No joint pain Heme: No abnormal bleeding/bruising Endo: + fatigue Skin: No rash, No itch All Other Systems: Reviewed and Negative Medications Current Inpatient Medications Medications (Trade) Dose Ordered Sig/Sendy Route Start Time Stop Time Status Last Admin Dose Admin Acetaminophen (Tylenol Tab) 650 mg Q4H PRN PO 04/04/17 18:30 05/04/17 18:29 Al Hydrox/Mg Hydrox/Simethicone (Maalox Max Susp) 15 ml Q4H PRN PO 04/04/17 18:30 05/04/17 18:29 Magnesium Hydroxide (Milk Of Magnesia Susp) 30 ml Q12H PRN PO 04/04/17 18:30 05/04/17 18:29 Polyethylene (Miralax Powder Packet) 17 gm DAILY PRN PO 04/04/17 18:30 05/04/17 18:29 Albuterol (Ventolin Hfa Inhaler) 1 puffs Q4H PRN INH 04/04/17 18:30 05/04/17 18:29 Pantoprazole Sodium (Protonix Tab) 40 mg QAM PO 04/05/17 09:00 05/05/17 08:59 04/13/17 07:18 40 MG Rosuvastatin Calcium (Crestor Tab) 40 mg HS PO 04/04/17 21:00 05/04/17 20:59 04/13/17 20:39 40 MG Fluticasone Propionate (Flovent Hfa 110MCG Inhaler) 2 puffs BID INH 04/04/17 21:00 05/04/17 20:59 04/13/17 20:38 2 PUFFS Ranitidine HCl (zANTac TAB) 150 mg HS PO 04/04/17 21:00 05/04/17 20:59 04/13/17 20:40 150 MG Heparin Sodium (Porcine) (Heparin 10 Unit/ ml 5 ml Flush) 5 ml PRN PRN FLUSH 04/06/17 03:30 05/06/17 03:29 Insulin Aspart (novoLOG ASPART) SLIDING SCALE If C... ACHS SC 04/06/17 16:00 05/06/17 15:59 Glucose (Glucose 40% Gel) 15-30 GRAMS 15 GRAMS... UD PRN PO 04/06/17 14:15 05/06/17 14:14 Glucose (Glucose Chew Tab) 4-8 Tablets 4 Tabl... UD PRN PO 04/06/17 14:15 05/06/17 14:14 Dextrose (Dextrose 50% 50ML Syringe) 25-50ML OF 50% DW IV FOR... UD PRN IV 04/06/17 14:15 05/06/17 14:14 Glucagon (Glucagon Inj) 1 mg UD PRN SQ 04/06/17 14:15 05/06/17 14:14 Enteral Nutritional Formula (Boost Glucose Control) 1 can BID@1000,2100 PO 04/06/17 21:00 05/06/17 20:59 04/13/17 20:37 1 CAN Lisinopril (Zestril Tab) 10 mg QAM PO 04/08/17 09:00 05/08/17 08:59 Future Hold 04/08/17 07:29 10 MG Metoclopramide HCl (Reglan Tab) 5 mg BID@0700,1600 PO 04/07/17 17:30 05/07/17 17:29 04/13/17 17:15 5 MG Lactobacillus Acidophilus (Floranex Tab) 4 tab TIDM PO 04/08/17 16:45 05/08/17 16:44 04/13/17 17:15 4 TAB Diphenoxylate HCl/ Atropine (Lomotil Tab) 1 tab Q4 PRN PO 04/08/17 12:30 05/08/17 12:29 Doxycycline Hyclate (Vibramycin Cap) 100 mg BID PO 04/08/17 21:00 04/18/17 20:59 04/13/17 20:39 100 MG Aspirin (Ecotrin Tab) 81 mg QAM PO 04/09/17 09:00 05/09/17 08:59 04/13/17 07:19 81 MG Anastrozole (Arimidex Tab) 1 mg QAM PO 04/12/17 09:00 05/12/17 08:59 04/13/17 07:27 1 MG Metoprolol Succinate (Toprol Xl Tab) 50 mg TID PO 04/11/17 14:00 05/08/17 08:59 04/13/17 20:38 50 MG Warfarin Sodium (Coumadin Tab) 1 mg DAILY@16 PO 04/12/17 16:00 05/12/17 15:59 04/13/17 17:15 1 MG Objective Vital Signs Date Time Temp Pulse Resp B/P (MAP) Pulse Ox O2 Delivery O2 Flow Rate FiO2 04/13/17 18:50 95 Room Air 04/13/17 18:49 36.6 90 20 137/84 (101) 95 Room Air 04/13/17 18:31 36.6 87 20 93 04/13/17 16:14 36.6 87 20 134/86 (102) 93 Room Air 04/13/17 16:00 Room Air 04/13/17 12:00 Room Air 04/13/17 11:55 36.3 84 16 129/78 (95) 96 04/13/17 08:00 Room Air 04/13/17 07:52 36.3 80 16 118/84 (95) 95 04/13/17 04:00 Room Air 04/13/17 03:54 36.7 79 16 104/69 (81) 93 04/13/17 00:00 Room Air 04/12/17 23:58 36.7 93 18 111/74 (86) 93 Room Air Physical Exam Comments: General Appearance: WD/WN, no apparent distress Eyes: normal inspection, EOMI, sclerae normal Neck: supple, no adenopathy, no JVD, trachea midline Respiratory/Chest: chest non-tender, no respiratory distress, no accessory muscle use, + decreased breath sounds (bases) Cardiovascular: no edema, no gallop, no JVD, no murmur, regular rate Abdomen: normal bowel sounds, non tender, soft, no organomegaly Extremities: normal range of motion, non-tender, normal inspection, no pedal edema, no calf tenderness, pelvis stable Neurologic/Psychiatric: glass cleaning machine tender II-XII nml as tested, alert, normal mood/affect, oriented x 3, + motor weakness (generalized) Skin: + pertinent finding (right breast radiation burn, left breast wound, vac removed) Laboratory Results Last 24 Hours Test 04/13/17 04:56 04/13/17 07:02 04/13/17 11:36 04/13/17 16:33 White Blood Count 6.58 K/uL Red Blood Count 3.62 M/uL Hemoglobin 10.3 g/dL Hematocrit 30.1 % Mean Corpuscular Volume 83.1 fL Mean Corpuscular Hemoglobin 28.5 pg Mean Corpuscular Hemoglobin Concent 34.2 g/dl RDW Standard Deviation 47.3 fL RDW Coefficient of Variation 15.5 % Platelet Count 199 K/uL Mean Platelet Volume 9.1 fL Prothrombin Time 22.0 SECONDS Prothromb Time International Ratio 2.1 Sodium Level 128 mmol/L Potassium Level 3.9 mmol/L Chloride Level 97 mmol/L Carbon Dioxide Level 24 mmol/L Anion Gap 7.0 mmol/L Blood Urea Nitrogen 60 mg/dl Creatinine 2.35 mg/dl Est Creatinine Clear Calc Drug Dose 18.6 ml/min Estimated GFR () 22.1 Estimated GFR (Non- 19.1 BUN/Creatinine Ratio 25.5 Random Glucose 86 mg/dl Calcium Level 7.7 mg/dl Bedside Glucose 88 mg/dl 104 mg/dl 104 mg/dl Test 04/13/17 20:35 Bedside Glucose 126 mg/dl Assessment and Plan This patient is a 81 y/o female with a history of right breast lobular carcinoma , HTN, HLD, CAD, COPD, CKD stage II-III, diet controlled DM II, h/o multiple PE' s on chronic anticoagulation and GERD who presented to the ED on 04/04 with hypotension and malaise. She remained hypotensive despite fluid boluses and was admitted to the ICU in case of need for vasopressors. CXR with left base atelectasis, otherwise negative on admission. EKG no ischemic changes. WBC 14.18. Creatinine 2.33. POC lactic acid 2.81. LFTs elevated. INR over 8, had been just 2.0 on 04/01. - Septic shock, multisystem organ failure, POA, thought to be secondary to skin wound This appears to be resolved as patient is no longer tachycardic or on fluids BP stable off of pressors, transferred out of ICU on 04/06 Blood and urine cultures negative, no wound cultures obtained and at this point likely negative appreciate ID note, received 5 days of Vanco and Zosyn switched to Doxycycline 100mg BID to limit fluids given since she is diuresing needs minimum of 3 weeks of antibiotics, follow up with ID in the wound clinic - Acute systolic heart failure: global cardiomyopathy, possible catecholamine induced (resolved) appreciate recommendations from Dr. Mcdonald Increased beta blockade with metoprolol 50mg TID, cannot give BRIAN due to renal function No longer in acute state. - AGUSTIN: POA due to septic shock, Cr recovered and then back up to 2.3 with diuresis/lasix use Cr imprved to 2.35.will try another bolus of fluid. Patient is diuresing now. Cr though did worsen after diuresing. Perhaps less aggressive diuresis may improve renal functions -- Renal U/S was negative - Severe protein/calorie malnutrition due to poor intake, diarrhea, malignancy tolerating Boost but not enough to raise her albumin which is quite low at 1.8 making it more difficult to treat volume overload - H/o PE, on Coumadin, markedly elevated INR on admission will decrease Coumadin to 1 mg due to elevated INR check INR in the AM - Metastatic breast cancer to LNs-started chemotherapy but due to infiltrative injury around her port, this was discontinued. Had indeterminate pulm nodules on CT Chest in 12/2016 Has been receiving XRT to the right breast and now with radiation hagan Oncology consultation appreciated, may start anti-hormonal treatment soon as outpatient CT chest on 04/06 to re-assess pulmonary nodules: could not be accurately assessed due to effusions and atelectasis will need to be done as outpatient - CAD s/p CABG in 1994, HTN, HLD--no acute issues, hypotension now resolved resume aspirin hold Lisinopril due to AGUSTIN continue Lopressor 50mg TID Continue Crestor 40 mg PO qd COPD--stable, no exacerbation -Continue Flovent BID DM II, diet controlled- HgbA1c 5.7 glucose in good control -Continue Accu-Cheks, SSI GERD -Continue Protonix and Zantac Generalized weakness Due to being in bed for about 9 days. After IVF bolus given, will dc IV access as it is a femoral line. Will then downgrade patient as she does not need to be in telemetry. will then initiate PT DVT prophylaxis -INR 2.1 -MT mohamud and SCDs Code Status -Level I, FULL RESUSCITATION STATUS. Pt states she wants 1 good attempt at resuscitation, but no more than that and nothing prolonged Continued [facility] stay due to: multiple IV medications needed, home environment unsafe for pt
[2017-04-14] VITALS (12 sets, daily range): BP systolic 108–137; BP diastolic 73–85; PULSE 80–90; TEMP 36.3–36.6; O2SAT 92–96
[2017-04-14 06:31] LABS: HEMATOCRIT 31.9 % (37-47); HEMOGLOBIN 10.9 g/dL (12.0-16.0); MEAN CELL VOLUME 83.5 fL (80-100); MEAN CORPUSCULAR HEMOGLOBIN 28.5 pg (25-34); MEAN CORPUSCULAR HGB CONC 34.2 g/dl (32-36); MEAN PLATELET VOLUME 9.1 fL (7.4-10.4); PLATELET COUNT 247 K/uL (130-400); RED CELL DISTRIBUTION WIDTH CV 15.7 % (11.5-14.5); RED CELL DISTRIBUTION WIDTH SD 47.8 fL (36.4-46.3); WHITE BLOOD COUNT 7.52 K/uL (4.8-10.8)
[2017-04-14 06:39] LABS: INR 1.9 (0.9-1.1)
[2017-04-14 07:03] LABS: CALCIUM 7.8 mg/dl (8.5-10.1); CREATININE 1.83 mg/dl (0.60-1.20); POTASSIUM 4.1 mmol/L (3.5-5.1)
[2017-04-14] MEDS: ASPIRIN 81 MG ECTAB PO SCH (07:50)
[2017-04-14] MEDS: FLUTICASONE HFA 110MCG INHALER INH SCH ×2 (07:50→20:27)
[2017-04-14] MEDS: PANTOprazole SOD 40 MG TAB PO SCH (07:51)
[2017-04-14] MEDS: DOXYCYCLINE HYCLATE 100 MG CAP PO SCH ×2 (07:51→20:27)
[2017-04-14] MEDS: METOPROLOL SUCC 50MG EXT REL TAB PO SCH ×3 (07:51→20:25)
[2017-04-14] MEDS: METOCLOPRAMIDE HCL 5 MG TAB PO SCH ×2 (07:52→16:27)
[2017-04-14] MEDS: LACTOBACILLUS ACIDOPHILUS (FLORANEX) TAB PO SCH ×3 (07:52→16:26)
[2017-04-14] MEDS: ANASTROZOLE 1 MG TAB PO SCH (07:53)
[2017-04-14] MEDS: INSULIN ASPART 100 UNITS/ML 3 ML PEN SC SCH ×4 (08:31→20:28)
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
[2017-04-14] MEDS: BOOST GLUCOSE CONTROL PO SCH ×2 (11:29→20:28)
[2017-04-14] MEDS ORDERED: WARFARIN SOD 2 MG TAB PO SCH (16:00)
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
[2017-04-14] MEDS: RANITIDINE HCL 150 MG TAB PO SCH (20:26)
[2017-04-14] MEDS: ROSUVASTATIN CALCIUM 20 MG TAB PO SCH (20:26)
--- NOTE | 2017-04-14 20:49 | PROGRESS NOTE ---
DATE: 04/14/2017 BRIEF NOTE: The patient's laboratory studies and hemodynamics have improved continually. She is tolerating current dosing of metoprolol 50 mg t.i.d. though there may be room to increase further if necessary. Followup echocardiogram has been ordered in a.m. to reassess LV function.
[2017-04-15 03:59] VITALS: BP 110/69; PULSE 77; TEMP 36.3; O2SAT 95
[2017-04-15] MEDS: METOCLOPRAMIDE HCL 5 MG TAB PO SCH ×2 (06:00→15:39)
[2017-04-15 07:50] VITALS: BP 122/78; PULSE 82; TEMP 36.3; O2SAT 94
[2017-04-15] MEDS: METOPROLOL SUCC 50MG EXT REL TAB PO SCH ×2 (08:33→13:24)
[2017-04-15] MEDS: ASPIRIN 81 MG ECTAB PO SCH (08:33)
[2017-04-15] MEDS: LACTOBACILLUS ACIDOPHILUS (FLORANEX) TAB PO SCH ×3 (08:33→17:00)
[2017-04-15] MEDS: DOXYCYCLINE HYCLATE 100 MG CAP PO SCH (08:33)
[2017-04-15] MEDS: PANTOprazole SOD 40 MG TAB PO SCH (08:34)
[2017-04-15] MEDS: INSULIN ASPART 100 UNITS/ML 3 ML PEN SC SCH ×3 (08:34→17:17)
[2017-04-15] MEDS: FLUTICASONE HFA 110MCG INHALER INH SCH (08:34)
[2017-04-15] MEDS: ANASTROZOLE 1 MG TAB PO SCH (08:36)
[2017-04-15] MEDS: BOOST GLUCOSE CONTROL PO SCH (08:37)
--- NOTE | 2017-04-15 08:56 | ECHOCARDIOGRAM REPORT ---
*NOTICE TO RECEIVING LIBERTARIAN AGENCY This information is strictly Confidential and protected under [place] law. [place] law prohibits you from making any further disclosure of this information unless further disclosure is expressly permitted by the written consent of the person to whom it pertains or is authorized by law. A general authorization for the release of medical or other information is not sufficient for this purpose. Hospital accepts no responsibility if the information is made available to any other person, INCLUDING THE PATIENT. Interpretation Summary * Name: NANCY STARKS Study Date: 04/15/2017 07:00 AM BP: 110/69 mmHg * Patient Location: [id number].[id number]\E404\[id number]\1 HR: 77 * : 1935 (M/d/yyyy) Gender: Female Height: 60 in * Age: 81 yrs Ethnicity: CA Weight: 190 lb * Ordering Physician: Devon Mcdonald * Referring Physician: UNKNOWN * Performed By: Elisa Reynaga RDCS * * Reason For Study: ASSESS LV FUNCTION * BSA: 1.8 m2 * -- Conclusions -- * No change compared to study of 04/08/17. * Limited study * Left ventricular systolic function is severely reduced. * There is severe global hypokinesis of the left ventricle. * Ejection Fraction = 20-25%. Procedure Details * Limited study for LV function, Patient had no IV access Left Ventricle * Ejection Fraction = 30-35%. MMode 2D Measurements and Calculations LVAd ap4 23.8 cm\S\2 LVLd ap4 7.7 cm EDV(MOD-sp4) 61.1 ml EDV(sp4-el) 62.0 ml LVAs ap4 19.2 cm\S\2 LVLs ap4 7.4 cm ESV(MOD-sp4) 42.0 ml ESV(sp4-el) 42.6 ml EF(MOD-sp4) 31.3 % EF(sp4-el) 31.2 % LVAd ap2 27.7 cm\S\2 LVLd ap2 8.0 cm EDV(MOD-sp2) 80.5 ml EDV(sp2-el) 81.8 ml LVAs ap2 21.8 cm\S\2 LVLs ap2 7.6 cm ESV(MOD-sp2) 52.0 ml ESV(sp2-el) 52.9 ml EF(MOD-sp2) 35.3 % EF(sp2-el) 35.4 % LVLd %diff 3.0 % EDV(MOD-bp) 70.6 ml LVLs %diff 3.6 % ESV(MOD-bp) 47.5 ml EF(MOD-bp) 32.7 % SV(MOD-sp4) 19.1 ml SI(MOD-sp4) 10.5 ml/m\S\2 SV(MOD-sp2) 28.4 ml SI(MOD-sp2) 15.6 ml/m\S\2 SV(MOD-bp) 23.1 ml SI(MOD-bp) 12.6 ml/m\S\2 SV(sp4-el) 19.4 ml SI(sp4-el) 10.6 ml/m\S\2 SV(sp2-el) 29.0 ml SI(sp2-el) 15.9 ml/m\S\2
--- NOTE | 2017-04-15 09:15 | Nephrology Progress Note ---
Nephrology Progress Note Date of Service Apr 15, 2017. Chief Complaint AGUSTIN Subjective Ms. Valdez was seen & examined in her hospital room this morning. She denies any medical complications overnight. She is now getting OOB to a chair. Cruz catheter has been removed and she is now voiding on her own. Labs are not yet available this am. Patient has small vessels which have been difficult to access. IV team is actively working to obtain blood sample this am. Review of Systems Constitutional: No fever Cardiovascular: No chest pain Respiratory: No dyspnea at rest Abdomen: No vomiting Extremities: No leg edema A complete review of systems was performed. Pertinent positives are noted above. All other systems are negative. Vital Signs Last 8 Hrs Date Time Temp Pulse Resp B/P (MAP) Pulse Ox O2 Delivery O2 Flow Rate FiO2 04/15/17 07:50 36.3 82 16 122/78 (93) 94 04/15/17 03:59 36.3 77 20 110/69 (83) 95 Room Air Last Recorded Weight Weight (Kilograms): 81.200 Physical Exam General Appearance: no apparent distress Head: normocephalic, atraumatic Eyes: PERRL, EOMI Neck: no adenopathy Respiratory/Chest: lungs clear, no respiratory distress Cardiovascular: regular rate, rhythm, no murmur Abdomen/GI: normal bowel sounds, non tender, soft Extremities/Musculoskelatal: no calf tenderness, no pedal edema Neurologic/Psych: alert, oriented x 3 Family History Cancer Diabetes mellitus Myocardial infarction Social History Smoking Status: Former smoker Smokeless Tobacco Use: No Alcohol Use: none Drug Use: none Marital Status: Housing Status: lives alone Occupation: retired Laboratory Results Past 24 Hours Test 04/14/17 11:29 04/14/17 16:31 04/14/17 19:31 04/15/17 07:40 Bedside Glucose 110 mg/dl (70-90) 98 mg/dl (70-90) 116 mg/dl (70-90) 93 mg/dl (70-90) Test 04/15/17 08:57 Allergies Coded Allergies: Nitroglycerin (Verified Allergy, Intermediate, BP Decreases, HR Increases , 04/04/17) REACTION WITH SUBLINGUAL PER RECORDS Medications Current Inpatient Medications Medications (Trade) Dose Ordered Sig/Sendy Route Start Time Stop Time Status Last Admin Dose Admin Acetaminophen (Tylenol Tab) 650 mg Q4H PRN PO 04/04/17 18:30 05/04/17 18:29 Al Hydrox/Mg Hydrox/Simethicone (Maalox Max Susp) 15 ml Q4H PRN PO 04/04/17 18:30 05/04/17 18:29 Magnesium Hydroxide (Milk Of Magnesia Susp) 30 ml Q12H PRN PO 04/04/17 18:30 05/04/17 18:29 Polyethylene (Miralax Powder Packet) 17 gm DAILY PRN PO 04/04/17 18:30 05/04/17 18:29 Albuterol (Ventolin Hfa Inhaler) 1 puffs Q4H PRN INH 04/04/17 18:30 05/04/17 18:29 Pantoprazole Sodium (Protonix Tab) 40 mg QAM PO 04/05/17 09:00 05/05/17 08:59 04/15/17 08:34 40 MG Rosuvastatin Calcium (Crestor Tab) 40 mg HS PO 04/04/17 21:00 05/04/17 20:59 04/14/17 20:26 40 MG Fluticasone Propionate (Flovent Hfa 110MCG Inhaler) 2 puffs BID INH 04/04/17 21:00 05/04/17 20:59 04/15/17 08:34 2 PUFFS Ranitidine HCl (zANTac TAB) 150 mg HS PO 04/04/17 21:00 05/04/17 20:59 04/14/17 20:26 150 MG Heparin Sodium (Porcine) (Heparin 10 Unit/ ml 5 ml Flush) 5 ml PRN PRN FLUSH 04/06/17 03:30 05/06/17 03:29 Insulin Aspart (novoLOG ASPART) SLIDING SCALE If C... ACHS SC 04/06/17 16:00 05/06/17 15:59 Glucose (Glucose 40% Gel) 15-30 GRAMS 15 GRAMS... UD PRN PO 04/06/17 14:15 05/06/17 14:14 Glucose (Glucose Chew Tab) 4-8 Tablets 4 Tabl... UD PRN PO 04/06/17 14:15 05/06/17 14:14 Dextrose (Dextrose 50% 50ML Syringe) 25-50ML OF 50% DW IV FOR... UD PRN IV 04/06/17 14:15 05/06/17 14:14 Glucagon (Glucagon Inj) 1 mg UD PRN SQ 04/06/17 14:15 05/06/17 14:14 Enteral Nutritional Formula (Boost Glucose Control) 1 can BID@1000,2100 PO 04/06/17 21:00 05/06/17 20:59 04/15/17 08:37 1 CAN Lisinopril (Zestril Tab) 10 mg QAM PO 04/08/17 09:00 05/08/17 08:59 Future Hold 04/08/17 07:29 10 MG Metoclopramide HCl (Reglan Tab) 5 mg BID@0700,1600 PO 04/07/17 17:30 05/07/17 17:29 04/15/17 06:00 5 MG Lactobacillus Acidophilus (Floranex Tab) 4 tab TIDM PO 04/08/17 16:45 05/08/17 16:44 04/15/17 08:33 4 TAB Diphenoxylate HCl/ Atropine (Lomotil Tab) 1 tab Q4 PRN PO 04/08/17 12:30 05/08/17 12:29 Doxycycline Hyclate (Vibramycin Cap) 100 mg BID PO 04/08/17 21:00 04/18/17 20:59 04/15/17 08:33 100 MG Aspirin (Ecotrin Tab) 81 mg QAM PO 04/09/17 09:00 05/09/17 08:59 04/15/17 08:33 81 MG Anastrozole (Arimidex Tab) 1 mg QAM PO 04/12/17 09:00 05/12/17 08:59 04/15/17 08:36 1 MG Metoprolol Succinate (Toprol Xl Tab) 50 mg TID PO 04/11/17 14:00 05/08/17 08:59 04/15/17 08:33 50 MG Warfarin Sodium (Coumadin Tab) 2 mg TuThSa@1600 PO 04/14/17 16:00 05/14/17 15:59 04/14/17 16:26 2 MG Warfarin Sodium (Coumadin Tab) 1 mg SuMoWeFr@1600 PO 04/15/17 16:00 05/15/17 15:59 Impression (1) Acute renal failure (2) Hypertension Nos (3) Breast cancer (4) Open wound of chest (wall), complicated (5) Anemia Ms. Valdez has breast CA dx 09/11. She required lumpectomy, chemotherapy with Adriamycin and Taxotere, and radiation therapy. This was complicated by a radiation burn and skin necrosis. She has been cared for at the wound clinic and has a wound vac in place. Ms. Valdez was admitted w/ hypotension. SBP was ~ 70 mmHg. She has a h/o ICM managed w/ BRIAN inhibitor. On admission Troponin was elevated. LVEF dropped to 20% and patient developed AGUSTIN while on BRIAN inhibitor. Evaluation for infection/ sepsis has been negative. Patient's baseline creatinine has been 0.7 - 0.8. Clinically suspect hemodynamically mediated ATN with low ejection fraction vs acute interstitial nephritis from vancomycin. Unclear etiology for significant drop in EF, ? Adriamycin toxicity Recommendations ACUTE KIDNEY INJURY: -- Creatinine has peaked at 2.9. Patient is now in the recovery phase. She remains nonoliguric. Volume status is acceptable. Awaiting am lab results. -- Urine microscopy 04/11/17 revealed muddy brown casts c/w ATN -- Renal US w/ 11 cm kidneys and no hydronephrosis -- Continue to hold BRIAN inhibitor -- Cruz catheter is now out. Patient reports brisk UO HYPONATREMIA: -- Mild, asymptomatic. Gradually improving. Likely related to AGUSTIN and CHF / ICM ASCVD: -- Echocardiogram 04/14: LVEF 20 - 25% w/ global LV dysfunction -- Cardiology is titrating beta timothy dose OTHER: -- Patient has completed OT evaluation. Recommend PT eval for bedside strengthening
[2017-04-15 09:27] LABS: CALCIUM 8.6 mg/dl (8.5-10.1); CREATININE 1.57 mg/dl (0.60-1.20); POTASSIUM 3.9 mmol/L (3.5-5.1)
[2017-04-15 11:50] VITALS: BP 127/78; PULSE 89; TEMP 36.5; O2SAT 95
--- NOTE | 2017-04-15 13:06 | Wound Progress Note: Inpatient ---
Wound Progress Note Date of Service Apr 15, 2017. Subjective Pt evaluation today including: conversation w/ patient, physical exam, chart review Patient seen today for follow-up evaluation of a nonhealing wound to the left breast as well as soft tissue radionecrosis to the right breast. Patient states she is having no pain and feeling well. Patient denies any other systemic complaints at this time. Objective Vital Signs Date Time Temp Pulse Resp B/P (MAP) Pulse Ox O2 Delivery O2 Flow Rate FiO2 04/15/17 11:50 36.5 89 16 127/78 (94) 95 04/15/17 08:30 Room Air 04/15/17 07:50 36.3 82 16 122/78 (93) 94 04/15/17 03:59 36.3 77 20 110/69 (83) 95 Room Air 04/15/17 00:00 Room Air 04/14/17 22:32 36.4 85 18 127/82 (97) 95 Room Air 04/14/17 19:50 36.3 84 18 131/83 (99) 96 Room Air 04/14/17 16:33 96 Room Air 04/14/17 16:28 36.5 87 16 137/81 (99) 96 Room Air 04/14/17 16:00 94 Room Air 04/14/17 14:41 84 119/80 (93) Physical Exam Notes: Patients vital signs were reviewed and found to be unremarkable patient is afebrile. The wound on the left breast today measures 6.2 x 11.6 x 3.5 cm with tunneling at 10:00 of 4.1 cm. There is scattered central slough as well as granulation tissue revolving in the base. There is no active drainage or odor noted the periwound edges show improvement. There still is substantial tunneling and undermining at the 10:00 region. Right breast continues to show significant improvement with reduced erythema. Laboratory Results Last 24 Hours Test 04/14/17 16:31 04/14/17 19:31 04/15/17 07:40 04/15/17 08:57 Bedside Glucose 98 mg/dl 116 mg/dl 93 mg/dl Prothrombin Time 20.7 SECONDS Prothromb Time International Ratio 2.0 Sodium Level 135 mmol/L Potassium Level 3.9 mmol/L Chloride Level 102 mmol/L Carbon Dioxide Level 24 mmol/L Anion Gap 9.0 mmol/L Blood Urea Nitrogen 56 mg/dl Creatinine 1.57 mg/dl Est Creatinine Clear Calc Drug Dose 27.4 ml/min Estimated GFR () 36.0 Estimated GFR (Non- 31.0 BUN/Creatinine Ratio 35.8 Random Glucose 111 mg/dl Calcium Level 8.6 mg/dl Test 04/15/17 11:46 Bedside Glucose 117 mg/dl Assessment and Plan Assessment: Nonhealing wound left breast Soft tissue radionecrosis right breast Plan: Debridement was indicated today on the left breast. With the patient's permission and after the application of topical Xylocaine 4% the site was debrided with scissors and forceps of underlying central slough as well as some subcutaneous tissue and fat. No significant bleeding occurred. The right breast will continue be dressed as before. Left breast will be managed a VAC black foam 125 mm of negative pressure. VAC will be change Tuesday. Patient will continue to be monitored during her hospital course and continue evaluation on the outpatient basis upon discharge..
[2017-04-15] MEDS ORDERED: CMD2 PO (13:40)
[2017-04-15] MEDS ORDERED: DXY100 PO (13:40)
[2017-04-15] MEDS ORDERED: TPRSR50 PO (13:40)
[2017-04-15] MEDS ORDERED: CMD1 PO (13:40)
[2017-04-15] MEDS ORDERED: LCTX PO (13:40)
--- NOTE | 2017-04-15 13:43 | Discharge Instructions ---
Discharge Instructions Date of Service Apr 15, 2017. Admission Reason for Admission: Septic Shock Discharge Discharge Diagnosis / Problem: Septic Shock Discharge Goals Goal(s): Decrease discomfort, Improve function Activity Recommendations Activity Limitations: as noted below Lifting Limitations: gradually increase as tolerated . Instructions / Follow-Up Instructions / Follow-Up Wound VAC black foam 125 mm of negative pressure. VAC will be change Tuesday. Patient will f/u with PCP in 1-2 weeks F/U with wound care clinic in 1-2 weeks Will have wound care at home with home health services starting tomorrow Will continue with antibiotics for 3 more weeks F/U with heart failure clinic in 2 weeks. Current Hospital Diet Patient's current hospital diet: Diabetes Type 2 Diet Discharge Diet Recommended Diet: Diabetes Type 2 Diet Pending Studies Studies pending at discharge: no Laboratory Results Hemoglobin A1c Test 04/04/17 22:49 Range/Units Estimated Average Glucose 117 mg/dl Hemoglobin A1c 5.7 H 4.5-5.6 % Medical Emergencies . Who to Call and When: Medical Emergencies: If at any time you feel your situation is an emergency, please call 911 immediately. . Non-Emergent Contact Non-Emergency issues call your: Primary Care Provider Call Non-Emergent contact if: you have any medication questions . . "Provider Documentation" section prepared by Jin Zhong. . VTE Core Measure Inpt VTE Proph given/why not?: Marbella Hickman, [facility]
[2017-04-15] MEDS ORDERED: ARM1 PO (15:45)
[2017-04-15 15:46] VITALS: BP 121/79; PULSE 84; TEMP 36.3; O2SAT 96
--- NOTE | 2017-04-15 15:48 | Discharge Summary ---
Discharge Summary Date of Service Apr 15, 2017. Discharge Summary Admission Date: Apr 04, 2017 at 19:03 Discharge Date: Apr 15, 2017 Discharge Disposition: Home with services Principal Diagnosis: - Septic shock, multisystem organ failure Problems/Secondary Diagnoses: (1) Bilateral pulmonary embolism Status: Chronic Immunizations: Have You Had Influenza Vaccine: N/A History of Tetanus Vaccine?: Yes History of Pneumococcal: Yes History of Hepatitis B Vaccine: No Medication Reconciliation New Medications: Anastrozole (Anastrozole) 1 Mg Tab 1 MG PO QAM for 30 Days, #30 TAB 3 Refills Doxycycline Hyclate (Doxycycline Hyclate) 100 Mg Cap 100 MG PO BID for 21 Days, #42 CAP 0 Refills Lactobacillus Acidophilus (Floranex) 1 Tab Tab 4 TAB PO TIDM for 21 Days, #252 TAB 0 Refills Metoprolol Succinate (Metoprolol Succinate ER) 50 Mg Tabcr 50 MG PO TID for 30 Days, #90 TAB 1 Refill Warfarin Sod (Coumadin) 1 Mg Tab 1 MG PO SuMoWeFr@1600 for 30 Days, #30 TAB 1 Refill Warfarin Sod (Coumadin) 2 Mg Tab 2 MG PO TuThSa@1600 for 30 Days, #30 TAB 1 Refill Continued Medications: Albuterol Hfa (Ventolin Hfa) 200 Puffs/39688 Mcg Aers 1-2 PUFFS INH Q4-6H PRN for Shortness of Breath, #1 INHALER Aspirin (Aspirin) 81 Mg Tab 81 MG PO QAM Calcium Carbonate-Vitamin D (Calcium + D) 1 Tab Tab 1 TAB PO BID Fluticasone Propionate (Inhala (Flovent Diskus) 100 Mcg/Blist Aer 2 PUFFS INH BID, #1 INHALER 5 Refills Metoclopramide (Reglan) 10 Mg Tab 5 MG PO QPM PRN for Dyspepsia, #6 TAB NAUSEA Pantoprazole (Protonix) 40 Mg Tab 40 MG PO QAM, 0 Refills Polyethylene Glycol 3350 (Miralax) 1 Pow Pow 17 GM PO prn, #255 GM Ranitidine (Zantac) 300 Mg Tab 150 MG PO HS Rosuvastatin Calcium (Crestor) 40 Mg Tab 40 MG PO HS, TAB Discontinued Medications: Enoxaparin (Lovenox) 120 Mg/0.8 Ml Inj 120 MG SQ DAILY, SYR START TOMORROW AFTER PROCEDURE 04/05/17 Lisinopril (Zestril) 10 Mg Tab 10 MG PO QAM Metoprolol Succ (Toprol Xl) (Toprol-Xl ) 100 Mg Tabcr 100 MG PO QAM, TAB Warfarin Sodium (Coumadin) 2 Mg Tab 2 MG PO DAILY, TAB ON HOLD TIL FURTHER NOTICE Discharge Exam Review of Systems: Constitutional: No fever, No chills ENT: No hearing loss, No unusual epistaxis Respiratory: No cough, No sputum Cardiovascular: No chest pain, No orthopnea Abdomen: No pain Physical Exam: General Appearance: WD/WN, no apparent distress ENT: normal ENT inspection Neck: supple, no adenopathy Respiratory/Chest: chest non-tender, lungs clear, normal breath sounds Cardiovascular: regular rate, rhythm, no edema Abdomen / GI: normal bowel sounds, non tender, soft Extremities: normal inspection, + pertinent finding ( swelling (trace pretibial edema. SCD's in place)) Neurologic/Psychiatric: alert, oriented x 3 Skin: + pertinent finding (Left breast with VAC black foam 125 mm of negative pressure.) Lymphatic: no adenopathy Hospital Course This patient is a 81 y/o female with a history of right breast lobular carcinoma , HTN, HLD, CAD, COPD, CKD stage II-III, diet controlled DM II, h/o multiple PE' s on chronic anticoagulation and GERD who presented to the ED on 04/04 with hypotension and malaise. She remained hypotensive despite fluid boluses and was admitted to the ICU in case of need for vasopressors. CXR with left base atelectasis, otherwise negative on admission. EKG no ischemic changes. WBC 14.18. Creatinine 2.33. POC lactic acid 2.81. LFTs elevated. INR over 8, had been just 2.0 on 04/01. - Septic shock, multisystem organ failure, POA, thought to be secondary to skin wound (RESOLVED) This appears to be resolved as patient is no longer tachycardic or on fluids BP stable off of pressors, transferred out of ICU on 04/06 Blood and urine cultures negative, no wound cultures obtained and at this point likely negative appreciate ID note, received 5 days of Vanco and Zosyn switched to Doxycycline 100mg BID to limit fluids given since she is diuresing needs minimum of 3 weeks of antibiotics, follow up with ID in the wound clinic - Acute systolic heart failure: global cardiomyopathy, possible catecholamine induced (resolved) appreciate recommendations from Dr. Mcdonald Increased beta blockade with metoprolol 50mg TID, cannot give BRIAN due to renal function No longer in acute state. May consider restarting once renal function normalizes - AGUSTIN: POA due to septic shock, Cr recovered and then back up to 2.9 with diuresis/lasix use Cr improved to 1.57.Patient is diuresing now. Will hold of lasix. -- Renal U/S was negative - Severe protein/calorie malnutrition due to poor intake, diarrhea, malignancy tolerating Boost but not enough to raise her albumin which is quite low at 1.8 making it more difficult to treat volume overload - H/o PE, on Coumadin, markedly elevated INR on admission will increase Coumadin to 2 mg 3 days a week with 1 mg of coumadin on the other days monitor PT/INR as outpatient - Metastatic breast cancer to LNs-started chemotherapy but due to infiltrative injury around her port, this was discontinued. Had indeterminate pulm nodules on CT Chest in 12/2016 Has been receiving XRT to the right breast and now with radiation hagan Oncology consultation appreciated, may start anti-hormonal treatment soon as outpatient CT chest on 04/06 to re-assess pulmonary nodules: could not be accurately assessed due to effusions and atelectasis will need to be done as outpatient - CAD s/p CABG in 1994, HTN, HLD--no acute issues, hypotension now resolved resume aspirin hold Lisinopril due to AGUSTIN continue Lopressor 50mg TID Continue Crestor 40 mg PO qd COPD--stable, no exacerbation -Continue Flovent BID DM II, diet controlled- HgbA1c 5.7 glucose in good control -Continue Accu-Cheks, SSI GERD -Continue Protonix and Zantac Generalized weakness initiated PT, will continue this with home health services DVT prophylaxis -INR 2.0 -MT mohamud and SCDs Code Status -Level I, FULL RESUSCITATION STATUS. Pt states she wants 1 good attempt at resuscitation, but no more than that and nothing prolonged Total Time Spent: Greater than 30 minutes This includes examination of the patient, discharge planning, medication reconciliation, and communication with other providers. Discharge Instructions Please refer to the electronic Patient Visit Report (Discharge Instructions) for additional information. Follow-Up FOLLOW-UP APPOINTMENT AT [facility] 04/20/17@ [id number] *The clinic phone number is [phone]." "Please, follow up with Dr. Noe on TuesdayApril 18 at 1:40 pm. *If you need to change or cancel this appointment, you can call the office at [phone]. Please, follow up at [facility] Office with Dr. Leslie on TuesdayApril 26 at 10:20 am. *This office is located at [address] [facility] in [place]. If you need to change or cancel this appointment, you can call the office at [phone]. Per request of Dr. Zhong I also arrange an appt at [facility] for kaleigh to participate in the CHF clinic. This info was also added to the DC instructions - "Please, follow up at [facility] Office with Chrissie Lucas PA-C on TuesdayApril 29 at 1:30 pm. *This office is located in [address] of [facility] next to [facility]. If you need to change or cancel this appointment, you can call the office at [phone]." Additional Copies To Lucian Noe M.D.
[2017-04-15] MEDS ORDERED: WARFARIN SOD 1 MG TAB PO SCH (16:00)
== END 2017-04-15 17:48 | disposition home health service (06) | DRG 871 ==
LOC: EDBD 15:27 → C.EDC 15:28 → EDBEDREQ 18:41 → ENRESERV 18:51 → C.MSICU 19:03 → ENRESERV 19:26 → CANRESERV 19:26 → ENRESERV 19:28 → C.2T 04-06 14:44 → ENRESERV 04-13 17:31 → C.4E 04-13 18:37
PROVIDERS: ADMIT Internal Medicine Sports Medicine; ATTEND Internal Medicine Sports Medicine
PROC: 02HV33Z Insertion of Infusion Device into Superior Vena Cava, Percutaneous Approach (ICD-10-PCS; principal; 2017-04-05)
DX: A41.9 Sepsis, unspecified organism (principal); I26.99 Other pulmonary embolism without acute cor pulmonale; R65.21 Severe sepsis with septic shock; C77.1 Secondary and unspecified malignant neoplasm of intrathoracic lymph nodes; N17.9 Acute kidney failure, unspecified; L59.8 Other specified disorders of the skin and subcutaneous tissue related to radiation; Z92.23 Personal history of estrogen therapy; Z79.01 Long term (current) use of anticoagulants; T21.01XA Burn of unspecified degree of chest wall, initial encounter; J44.9 Chronic obstructive pulmonary disease, unspecified; I12.9 Hypertensive chronic kidney disease with stage 1 through stage 4 chronic kidney disease, or unspecified chronic kidney disease; D64.9 Anemia, unspecified; R79.1 Abnormal coagulation profile; E78.5 Hyperlipidemia, unspecified; K21.9 Gastro-esophageal reflux disease without esophagitis; I25.2 Old myocardial infarction; Z95.5 Presence of coronary angioplasty implant and graft; N18.3 Chronic kidney disease, stage 3 (moderate); Z79.82 Long term (current) use of aspirin; Z85.3 Personal history of malignant neoplasm of breast; Z96.659 Presence of unspecified artificial knee joint; Z87.891 Personal history of nicotine dependence; Z86.718 Personal history of other venous thrombosis and embolism; Y92.89 Other specified places as the place of occurrence of the external cause; Z86.711 Personal history of pulmonary embolism; Y84.2 Radiological procedure and radiotherapy as the cause of abnormal reaction of the patient, or of later complication, without mention of misadventure at the time of the procedure

== ENCOUNTER 2017-04-17 01:54 | Inpatient (IN) | payer MEDICARE, OTHER ==
[2017-04-17] VITALS (13 sets, daily range): BP systolic 119–139; BP diastolic 69–84; PULSE 84–97; TEMP 36.5–36.9; O2SAT 90–99; BMI 36.5
[~2017-04-17] VITALS: Ht 152.4 cm; Wt 74.4 kg
[~2017-04-17 01:54] MED LIST changes: -ACET-1256 PO; +ARM1 PO; +CMD1 PO; +CMD2 PO; +DXY100 PO; +LCTX PO; -LISI-461 PO; -METO100T44 PO; +TPRSR50 PO; -WARF2TAB PO
--- NOTE | 2017-04-17 02:52 | EMERGENCY ROOM VISIT NOTE ---
History Report prepared by Lizy: Bebo Boothe Under the Supervision of: Dr. Melany Palacios D.O. First contact with patient: 02:09 Chief Complaint: RESPIRATORY PROBLEMS Stated Complaint: TROUBLE BREATHING History of Present Illness The patient is a 81 year old female who presents to the Emergency Room with complaints of worsening shortness of breath that began 2 days ago. Patient states the symptoms are exacerbated with exertion. Patient has associated symptoms of ankle swelling and leg swelling. She states the swelling began yesterday. She denies symptoms of nausea, vomiting, abdominal pain, and fevers. Patient states she is able to eat and drink but does not have much of an appetite. Patient is present with family members. Family states that patient was in the hospital recently for sepsis. They state that the patient was discharged 2 days ago. Family adds the patient has had more than usual discharge from her wound vac today. Source of History: patient, family Onset: 2 days ago Timing: worsening Modifying Factors (Worsening): exertion Associated Symptoms: No fevers, No nausea, No vomiting, No abdominal pain Note: Patient has leg swelling and ankle swelling. Review of Systems See HPI for pertinent positives & negatives. A total of 10 systems reviewed and were otherwise negative. Past Medical & Surgical Medical Problems: (1) Anemia (2) Anticoagulants,Lt,Current Use (3) Asthma, Unspecified, W (Acute) Exacerbation (4) Bilateral pulmonary embolism (5) Breast cancer (6) CHF (congestive heart failure) (7) Hypertension Nos (8) Near syncope (9) Old Myocardial Infarct (10) Open wound of chest (wall), complicated (11) Oth Pulmon Embolism/Infarct Surgical Problems: (1) History of knee replacement Family History Cancer Diabetes mellitus Myocardial infarction Social History Smoking Status: Former Smoker Alcohol Use: none Drug Use: none Marital Status: Housing Status: lives alone Occupation Status: retired Current/Historical Medications Scheduled Anastrozole (Anastrozole), 1 MG PO DAILY Aspirin (Aspirin), 81 MG PO QAM Calcium Carbonate-Vitamin D (Calcium + D), 1 TAB PO BID Doxycycline Hyclate (Doxycycline Hyclate), 100 MG PO BID Fluticasone Propionate (Inhala (Flovent Diskus), 2 PUFFS INH BID Lactobacillus Acidophilus (Floranex), 4 TAB PO TIDM Lactobacillus Acidophilus (Lactinex), 4 TABS PO TIDM Metoprolol Succinate (Metoprolol Succinate ER), 50 MG PO TID Pantoprazole (Protonix), 40 MG PO QAM Polyethylene Glycol 3350 (Miralax), 17 GM PO prn Ranitidine (Zantac), 150 MG PO HS Rosuvastatin Calcium (Crestor), 40 MG PO HS Warfarin Sodium (Coumadin), 1 MG PO 4XWK Warfarin Sodium (Coumadin), 2 MG PO 3XWK Scheduled PRN Albuterol Hfa (Ventolin Hfa), 1-2 PUFFS INH Q4-6H PRN for Shortness of Breath Metoclopramide (Reglan), 5 MG PO QPM PRN for Dyspepsia Allergies Coded Allergies: Nitroglycerin (Verified Allergy, Intermediate, BP Decreases, HR Increases , 04/17/17) REACTION WITH SUBLINGUAL PER RECORDS Physical Exam Vital Signs Date Time Temp Pulse Resp B/P (MAP) Pulse Ox O2 Delivery O2 Flow Rate FiO2 04/17/17 07:15 84 20 125/78 99 04/17/17 06:03 96 20 128/84 98 Nasal Cannula 2.0 04/17/17 05:05 90 20 139/72 98 Nasal Cannula 2.0 04/17/17 03:40 100 20 152/96 99 Nasal Cannula 2.0 04/17/17 03:00 99 Room Air 04/17/17 02:27 93 Room Air 04/17/17 01:58 36.9 105 20 137/82 94 Room Air Physical Exam HEENT: Head - normocephalic and atraumatic Pupils are equal, round, and reactive to light. Extraocular eye muscles are intact, and sclera are anicteric. Nose - moist nasal mucosa without discharge. Mouth - dry buccal mucosa. Oropharynx is nonerythematous and there is no tonsillar exudate or edema noted. Neck: Supple; no JVD, nuchal rigidity, cervical lymphadenopathy. Heart: Tachycardic rate and rhythm. There is a normal S1 and S2 with no murmurs , clicks, or gallops appreciated. Lungs: Diminished breath sounds, absent on right and diminished on left Abdomen: Soft, completely nontender, nondistended, with good bowel sounds. There are no palpable pulsatile masses or hepatosplenomegaly. There is no guarding, rigidity, or rebound noted. Extremities: No evidence of cyanosis or clubbing. 4+ pedal edema in legs. There are easily palpable peripheral pulses. Skin: warm and dry with good turgor and no rashes. Medical Decision & Procedures ER Provider Diagnostic Interpretation: Radiology results as stated below per my review and the radiologist's interpretation: CHEST 2 VIEWS ROUTINE HISTORY: 81 years-old Female sob acute dyspnea with shortness of breath COMPARISON: Chest radiograph 04/11/2017 TECHNIQUE: Portable AP and lateral views of the chest FINDINGS: Cardiac silhouette is again enlarged, unchanged. Atherosclerosis of the aorta. Prior median sternotomy. Left subclavian Flhjtc-o-Lvna catheter appears unchanged. Surgical clips project over the left mediastinum. There is no pneumothorax identified. Small bilateral pleural effusions with bibasilar consolidative opacities appear unchanged. Pulmonary vascular congestion with mildly worsened mild to moderate appearing pulmonary edema. Bones of the chest appear grossly intact. IMPRESSION: 1. Cardiomegaly with mildly worsened pulmonary edema. 2. Small bilateral pleural effusions with bibasilar consolidative opacities suggesting atelectasis or less likely pneumonia. The above report was generated using voice recognition software. It may contain grammatical, syntax or spelling errors. Electronically signed by: Darrell Romo M.D. 04/17/2017 6:51 AM Laboratory Results 04/17/17 03:00 Red Blood Count 3.79, Mean Corpuscular Volume 86.3, Mean Corpuscular Hemoglobin 27.7, Mean Corpuscular Hemoglobin Concent 32.1, Mean Platelet Volume 8.8, Neutrophils (%) (Auto) 79.0, Lymphocytes (%) (Auto) 9.0, Monocytes (%) (Auto) 8.6, Eosinophils (%) (Auto) 2.7, Basophils (%) (Auto) 0.4, Neutrophils # (Auto) 7.10, Lymphocytes # (Auto) 0.81, Monocytes # (Auto) 0.77, Eosinophils # (Auto) 0.24, Basophils # (Auto) 0.04 04/17/17 03:00 Test 04/17/17 02:50 04/17/17 03:00 Prothrombin Time 26.6 SECONDS (9.0-12.0) Prothromb Time International Ratio 2.6 (0.9-1.1) Activated Partial Thromboplast Time 33.7 SECONDS (21.0-31.0) Partial Thromboplastin Ratio 1.3 White Blood Count 8.99 K/uL (4.8-10.8) Red Blood Count 3.79 M/uL (4.2-5.4) Hemoglobin 10.5 g/dL (12.0-16.0) Hematocrit 32.7 % (37-47) Mean Corpuscular Volume 86.3 fL (80-100) Mean Corpuscular Hemoglobin 27.7 pg (25-34) Mean Corpuscular Hemoglobin Concent 32.1 g/dl (32-36) Platelet Count 312 K/uL (130-400) Mean Platelet Volume 8.8 fL (7.4-10.4) Neutrophils (%) (Auto) 79.0 % Lymphocytes (%) (Auto) 9.0 % Monocytes (%) (Auto) 8.6 % Eosinophils (%) (Auto) 2.7 % Basophils (%) (Auto) 0.4 % Neutrophils # (Auto) 7.10 K/uL (1.4-6.5) Lymphocytes # (Auto) 0.81 K/uL (1.2-3.4) Monocytes # (Auto) 0.77 K/uL (0.11-0.59) Eosinophils # (Auto) 0.24 K/uL (0-0.5) Basophils # (Auto) 0.04 K/uL (0-0.2) RDW Standard Deviation 51.6 fL (36.4-46.3) RDW Coefficient of Variation 16.2 % (11.5-14.5) Immature Granulocyte % (Auto) 0.3 % Immature Granulocyte # (Auto) 0.03 K/uL (0.00-0.02) Anion Gap 8.0 mmol/L (3-11) Est Creatinine Clear Calc Drug Dose 29.8 ml/min Estimated GFR () 38.6 Estimated GFR (Non- 33.3 BUN/Creatinine Ratio 28.9 (10-20) Calcium Level 8.5 mg/dl (8.5-10.1) Total Bilirubin 0.4 mg/dl (0.2-1) Aspartate Amino Transf (AST/SGOT) 23 U/L (15-37) Alanine Aminotransferase (ALT/SGPT) 24 U/L (12-78) Alkaline Phosphatase 85 U/L (45-117) Total Creatine Kinase 50 U/L (26-192) Creatine Kinase MB 1.6 ng/ml (0.5-3.6) Creatine Kinase MB Ratio 3.2 (0-3.0) Troponin I 0.032 ng/ml (0-0.045) Pro-B-Type Natriuretic Peptide > 86901 pg/ml (0-1800) Total Protein 6.7 gm/dl (6.4-8.2) Albumin 2.5 gm/dl (3.4-5.0) Globulin 4.2 gm/dl (2.5-4.0) Albumin/Globulin Ratio 0.6 (0.9-2) Laboratory results per my review. Medications Administered Medications (Trade) Dose Ordered Sig/Sendy Route Start Time Stop Time Status Last Admin Dose Admin Furosemide (Lasix Inj) 40 mg NOW STAT IV 04/17/17 05:19 04/17/17 05:20 DC 04/17/17 05:38 40 MG Procedure IV Lasix ECG Indication: SOB/dyspnea Rate (beats per minute): 108 Rhythm: sinus tachycardia Findings: no acute ischemic change, no ectopy Change: Patient's electrocardiogram was interpreted by me. ED Course 0215: The patient was evaluated in room A10. A complete history and physical examination were performed. Nursing notes and previous electronic medical records were reviewed. IV lock was established and labs were drawn as above. A twelve-lead EKG was obtained as described above. A chest x-ray was performed. 0431: Upon reevaluation, I discussed findings and results with her. She verbalized agreement of the treatment plan. I spoke with Dr. Pyle of the [facility]. The patient will be evaluated for further management and care. 0510: 40 mg of IV Lasix Medical Decision The patient is a 81 year old female who presents to the ED with worsening shortness of breath. Differential diagnosis includes congestive heart failure, worsening pleural fluid, pneumonia, and cardiac dysrhythmia. Lab results show hemoglobin is low at 10.5, normal white blood cell count, BUN = 43, creatinine = 1.4, glucose = 101, troponin = 0.032, [place] [address], normal LFTs, and INR = 2.6. This is a 81-year-old female patient with a history of recent septic shock. The patient was just discharged 2 days ago and presents back with increasing shortness of breath especially with exertion. Chest x-ray shows significant congestive heart failure that has worsened since her discharge. She is hemodynamically stable at this time. She was given IV Lasix. I discussed the case with the [facility] hospitalist and he will evaluate for further management Medication Reconcilliation Current Medication List: was personally reviewed by me Blood Pressure Screening Patient's blood pressure: Normal blood pressure Blood pressure disposition: Did not require urgent referral Impression Primary Impression: Congestive heart failure (CHF) Scribe Attestation The scribe's documentation has been prepared under my direction and personally reviewed by me in its entirety. I confirm that the note above accurately reflects all work, treatment, procedures, and medical decision making performed by me. Departure Information Dispostion Being Evaluated By Hospitalist Referrals Lucian Noe M.D. (PCP) Forms HOME CARE DOCUMENTATION FORM, IMPORTANT VISIT INFORMATION, WORK / SCHOOL INSTRUCTIONS Patient Instructions My [facility] Health Problem Qualifiers Primary Impression: Congestive heart failure (CHF) Congestive heart failure type: combined Congestive heart failure chronicity: acute on chronic Qualified Codes: I50.43 - Acute on chronic combined systolic (congestive) and diastolic (congestive) heart failure
[2017-04-17 03:46] LABS: BASO % 0.4 %; BASO ABS # 0.04 K/uL (0-0.2); EOS % 2.7 %; EOS ABS # 0.24 K/uL (0-0.5); HEMATOCRIT 32.7 % (37-47); HEMOGLOBIN 10.5 g/dL (12.0-16.0); IG# 0.03 K/uL (0.00-0.02); LYMPH ABS # 0.81 K/uL (1.2-3.4); MEAN CELL VOLUME 86.3 fL (80-100); MEAN CORPUSCULAR HEMOGLOBIN 27.7 pg (25-34); MEAN CORPUSCULAR HGB CONC 32.1 g/dl (32-36); MEAN PLATELET VOLUME 8.8 fL (7.4-10.4); MONO % 8.6 %; MONO ABS # 0.77 K/uL (0.11-0.59); PLATELET COUNT 312 K/uL (130-400); RED CELL DISTRIBUTION WIDTH CV 16.2 % (11.5-14.5); RED CELL DISTRIBUTION WIDTH SD 51.6 fL (36.4-46.3); WHITE BLOOD COUNT 8.99 K/uL (4.8-10.8)
[2017-04-17] MEDS ORDERED: ANAS1TAB6 PO (03:50)
[2017-04-17] MEDS ORDERED: DOXY100C76 PO (03:52)
[2017-04-17] MEDS ORDERED: DOXY1TAB6 PO (03:53)
[2017-04-17] MEDS ORDERED: LCTX PO (03:55)
[2017-04-17] MEDS ORDERED: TPRSR50 PO (03:57)
[2017-04-17] MEDS ORDERED: WARF1TAB PO (03:58)
[2017-04-17 03:59] LABS: INR 2.6 (0.9-1.1); PTT PATIENT 33.7 SECONDS (21.0-31.0)
[2017-04-17] MEDS ORDERED: WARF2TAB PO (04:00)
[2017-04-17 04:07] LABS: ALBUMIN 2.5 gm/dl (3.4-5.0); ALT/SGPT 24 U/L (12-78); AST/SGOT 23 U/L (15-37); BLOOD UREA NITROGEN 43 mg/dl (7-18); CALCIUM 8.5 mg/dl (8.5-10.1); CARBON DIOXIDE 27 mmol/L (21-32); CREATININE 1.48 mg/dl (0.60-1.20); GLUCOSE 101 mg/dl (70-99); SODIUM 139 mmol/L (136-145)
[2017-04-17 04:12] LABS: ALKALINE PHOSPHATASE 85 U/L (45-117); CKMB 1.6 ng/ml (0.5-3.6); TOTAL PROTEIN 6.7 gm/dl (6.4-8.2)
[2017-04-17] MEDS ORDERED: ALBUTEROL 0.083% NEBU SOLN 3 ML VIAL INH PRN (05:15)
[2017-04-17] MEDS ORDERED: METOCLOPRAMIDE HCL 5 MG TAB PO PRN (05:15)
[2017-04-17] MEDS ORDERED: FUROSEMIDE 40 MG/4 ML VIAL IV STA (05:19)
--- NOTE | 2017-04-17 06:09 | History and Physical ---
History & Physical Date & Time of Service: Apr 17, 2017 at 05:29 Chief Complaint: Trouble Breathing Primary Care Physician: Lucian Noe M.D. History of Present Illness Source: patient 81 y/o F Hx breast CA, HTN, HPL, CKD III, multiple PEs, chronic anemia. 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 She was recently admitted with septic shock thought to be related to her chest wound on 04/04. During her admission she was diagnosed with systolic heart failure and an EF of 25%. This was thought related to her septic shock and apparently improved prior to DC 04/15. Since discharge she has noted progressive SOB, increasing exercise intolerance and increased lower extremity edema. Exam and imaging are consistent with recurrence or exacerbation of CHF. She denies CP, productive cough, fevers and does not recall any orthopnea. She states there may be an increased amount of discharge from her wound vac over the past few days. Past Medical/Surgical History 1) R breast lobular carcinoma - treated with chemo including Doxorubicin until 01/11 - radiation terminated 03/14. Takes Anastrozole only at present. 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 - wound vac in place x 3 months - thought to be source of recent sepsis 6) Chronic anemia - baseline Hb ranges 9-11 7) GERD 8) HTN 9) HPL Family History Cancer Diabetes mellitus Myocardial infarction Social History Smoking Status: Former Smoker Drug Use: none Marital Status: Housing status: lives alone Occupational Status: retired Immunizations History of Influenza Vaccine: N/A History of Tetanus Vaccine?: Yes History of Pneumococcal: Yes History of Hepatitis B Vaccine: No Multi-Drug Resistant Organisms History of MDRO: No Allergies Coded Allergies: Nitroglycerin (Verified Allergy, Intermediate, BP Decreases, HR Increases , 04/17/17) REACTION WITH SUBLINGUAL PER RECORDS Home Medications Scheduled Anastrozole (Anastrozole), 1 MG PO DAILY Aspirin (Aspirin), 81 MG PO QAM Calcium Carbonate-Vitamin D (Calcium + D), 1 TAB PO BID Doxycycline Hyclate (Doxycycline Hyclate), 100 MG PO BID Fluticasone Propionate (Inhala (Flovent Diskus), 2 PUFFS INH BID Lactobacillus Acidophilus (Floranex), 4 TAB PO TIDM Lactobacillus Acidophilus (Lactinex), 4 TABS PO TIDM Metoprolol Succinate (Metoprolol Succinate ER), 50 MG PO TID Pantoprazole (Protonix), 40 MG PO QAM Polyethylene Glycol 3350 (Miralax), 17 GM PO prn Ranitidine (Zantac), 150 MG PO HS Rosuvastatin Calcium (Crestor), 40 MG PO HS Warfarin Sodium (Coumadin), 1 MG PO 4XWK Warfarin Sodium (Coumadin), 2 MG PO 3XWK Scheduled PRN Albuterol Hfa (Ventolin Hfa), 1-2 PUFFS INH Q4-6H PRN for Shortness of Breath Metoclopramide (Reglan), 5 MG PO QPM PRN for Dyspepsia Review of Systems Constitutional: No fever, No chills, No sweats Eyes: No worsening of vision ENT: No hearing loss, No unusual epistaxis, No nasal symptoms Respiratory: + shortness of breath, + dyspnea on exertion, + dyspnea at rest, No cough, No sputum, No wheezing Cardiovascular: + edema, No chest pain, No orthopnea Abdomen: No pain, No nausea, No vomiting Musculoskeletal: No joint pain Genitourinary - Female: No dysuria, No urinary frequency, No urinary urgency Neurologic: No memory loss, No paralysis, No weakness Psychiatric: No depression symptoms Endocrine: No fatigue Hematologic / Lymphatic: No abnormal bleeding/bruising Integumentary: + problem reported (Chronic chest wound as above), No rash Allergic / Immunologic: No environmental allergies Physical Exam Vital Signs Date Time Temp Pulse Resp B/P (MAP) Pulse Ox O2 Delivery O2 Flow Rate FiO2 04/17/17 05:05 90 20 139/72 98 Nasal Cannula 2.0 04/17/17 03:40 100 20 152/96 99 Nasal Cannula 2.0 04/17/17 03:00 99 Room Air 04/17/17 02:27 93 Room Air 04/17/17 01:58 36.9 105 20 137/82 94 Room Air General Appearance: WD/WN, no apparent distress Head: normocephalic Eyes: normal inspection, EOMI ENT: normal ENT inspection, pharynx normal Neck: supple, + JVD Respiratory/Chest: + crackles (BL at bases), + pertinent finding (Large necrotic chest wound with surrounding erythema and wound vac - small shallow ulcer over R collarbone) Cardiovascular: regular rate, rhythm, no gallop, + JVD Abdomen/GI: normal bowel sounds, non tender, soft Back: normal inspection, no CVA tenderness, no muscle spasm Extremities/Musculoskelatal: + pedal edema 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, no motor/sensory deficits, alert, oriented x 3 Skin: + pertinent finding (Chest wound as above - shallow ulcer R clavicle) Diagnostics Laboratory Results Results Past 24 Hours Test 04/17/17 02:50 04/17/17 03:00 Range/Units Prothrombin Time 26.6 9.0-12.0 SECONDS Prothromb Time International Ratio 2.6 0.9-1.1 Activated Partial Thromboplast Time 33.7 21.0-31.0 SECONDS Partial Thromboplastin Ratio 1.3 White Blood Count 8.99 4.8-10.8 K/uL Red Blood Count 3.79 4.2-5.4 M/uL Hemoglobin 10.5 12.0-16.0 g/dL Hematocrit 32.7 37-47 % Mean Corpuscular Volume 86.3 80-100 fL Mean Corpuscular Hemoglobin 27.7 25-34 pg Mean Corpuscular Hemoglobin Concent 32.1 32-36 g/dl Platelet Count 312 130-400 K/uL Mean Platelet Volume 8.8 7.4-10.4 fL Neutrophils (%) (Auto) 79.0 % Lymphocytes (%) (Auto) 9.0 % Monocytes (%) (Auto) 8.6 % Eosinophils (%) (Auto) 2.7 % Basophils (%) (Auto) 0.4 % Neutrophils # (Auto) 7.10 1.4-6.5 K/uL Lymphocytes # (Auto) 0.81 1.2-3.4 K/uL Monocytes # (Auto) 0.77 0.11-0.59 K/uL Eosinophils # (Auto) 0.24 0-0.5 K/uL Basophils # (Auto) 0.04 0-0.2 K/uL RDW Standard Deviation 51.6 36.4-46.3 fL RDW Coefficient of Variation 16.2 11.5-14.5 % Immature Granulocyte % (Auto) 0.3 % Immature Granulocyte # (Auto) 0.03 0.00-0.02 K/uL Sodium Level 139 136-145 mmol/L Potassium Level 4.0 3.5-5.1 mmol/L Chloride Level 104 98-107 mmol/L Carbon Dioxide Level 27 21-32 mmol/L Anion Gap 8.0 3-11 mmol/L Blood Urea Nitrogen 43 7-18 mg/dl Creatinine 1.48 0.60-1.20 mg/dl Est Creatinine Clear Calc Drug Dose 29.8 ml/min Estimated GFR () 38.6 Estimated GFR (Non- 33.3 BUN/Creatinine Ratio 28.9 10-20 Random Glucose 101 70-99 mg/dl Calcium Level 8.5 8.5-10.1 mg/dl Total Bilirubin 0.4 0.2-1 mg/dl Aspartate Amino Transf (AST/SGOT) 23 15-37 U/L Alanine Aminotransferase (ALT/SGPT) 24 12-78 U/L Alkaline Phosphatase 85 45-117 U/L Total Creatine Kinase 50 26-192 U/L Creatine Kinase MB 1.6 0.5-3.6 ng/ml Creatine Kinase MB Ratio 3.2 0-3.0 Troponin I 0.032 0-0.045 ng/ml Pro-B-Type Natriuretic Peptide > 04537 0-1800 pg/ml Total Protein 6.7 6.4-8.2 gm/dl Albumin 2.5 3.4-5.0 gm/dl Globulin 4.2 2.5-4.0 gm/dl Albumin/Globulin Ratio 0.6 0.9-2 Microbiology Results 04/17/17 Blood Culture, Received Pending 04/17/17 Blood Culture, Received Pending Diagnostic Radiology CXR: pulmonary edema EKG NSR, evidence of previous septal MN, no acute changes from previous Impression Assessment and Plan 81 y/o F Hx breast CA, HTN, HPL, CKD III, multiple PEs, chronic anemia. 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 She was recently admitted with septic shock thought to be related to her chest wound on 04/04. During her admission she was diagnosed with systolic heart failure and an EF of 25%. This was thought related to her septic shock and apparently improved prior to DC 04/15. Since discharge she has noted progressive SOB, increasing exercise intolerance and increased lower extremity edema. Exam and imaging are consistent with recurrence or exacerbation of CHF. She denies CP, productive cough, fevers and does not recall any orthopnea. She states there may be an increased amount of discharge from her wound vac over the past few days. 1) Acute exacerbation of systolic CHF. The pt was not discharged with a diuretic as her CHF may have been due to sepsis and was improving. Additionally , her renal function is impaired and she is at risk of AGUSTIN. Clearly she remains vulnerable to volume overload. We have provided an initial dose of IV Lasix, will apply NTG and will request a cardiology consult. She has three recent echocardiograms on record so that we will defer to cardiology for any additional. We will continue her B timothy and avoid immediate BRIAN or ARB use due to her renal function. Aldactone can be considered. 2) Chest wound with wound vac. Infection is chronic - she does c/o increasing discharge - we will consult wound care for now and continue her Doxycycline 3) HTN - cont Metoprolol 4) History of PEs - pt is anticoagulated with Coumadin - INR is therapeutic at 2.6. 5) Anemia - Hb is at baseline 6) CKD II-III - renal function has improved since recent DC 7) Breast CA - is not currently receiving treatment aside for anastrazole which we will continue Full code - anticoagulated with Coumadin Total time for this admit including review of labs, meds, imaging, extensive records. Discussion with pt, family and ER attending - 43 min Level of Care Telemetry Resuscitation Status FULL RESUSCITATION VTE Prophylaxis Risk Level: High Given or contraindicated: Warfarin (Coumadin)
[2017-04-17] MEDS ORDERED: MAGNESIUM HYDROXIDE SUSP 30 ML UDC PO PRN (06:15)
[2017-04-17] MEDS ORDERED: ALUMINUM/MAGNESIUM/SIMETH (MAALOX MAX) 30 ML UDC PO PRN (06:15)
[2017-04-17] MEDS ORDERED: POLYETHYLENE (MIRALAX) 17 GM PACK PO PRN (06:15)
[2017-04-17] MEDS ORDERED: ONDANSETRON INJ 2 MG/ML 2 ML VIAL IV PRN (06:15)
[2017-04-17] MEDS ORDERED: ACETAMINOPHEN 325 MG TAB PO PRN (06:15)
--- NOTE | 2017-04-17 06:53 | DIAGNOSTIC IMAGING REPORT ---
CHEST 2 VIEWS ROUTINE HISTORY: 81 years-old Female sob acute dyspnea with shortness of breath COMPARISON: Chest radiograph 04/11/2017 TECHNIQUE: Portable AP and lateral views of the chest FINDINGS: Cardiac silhouette is again enlarged, unchanged. Atherosclerosis of the aorta. Prior median sternotomy. Left subclavian [id number]-[id number]-[id number] catheter appears unchanged. Surgical clips project over the left mediastinum. There is no pneumothorax identified. Small bilateral pleural effusions with bibasilar consolidative opacities appear unchanged. Pulmonary vascular congestion with mildly worsened mild to moderate appearing pulmonary edema. Bones of the chest appear grossly intact. IMPRESSION: 1. Cardiomegaly with mildly worsened pulmonary edema. 2. Small bilateral pleural effusions with bibasilar consolidative opacities suggesting atelectasis or less likely pneumonia. The above report was generated using voice recognition software. It may contain grammatical, syntax or spelling errors. Electronically signed by: Darrell Romo M.D. 04/17/2017 6:51 AM Dictated Date/Time: 04/17/2017 6:49 AM
[2017-04-17] MEDS ORDERED: FUROSEMIDE INJ 40 MG in SYRINGE 0 ML IV ONE (08:00)
[2017-04-17] MEDS: METOPROLOL SUCC 50MG EXT REL TAB PO SCH ×3 (08:33→20:48)
[2017-04-17] MEDS: PANTOprazole SOD 40 MG TAB PO SCH (08:33)
[2017-04-17] MEDS: LACTOBACILLUS ACIDOPHILUS (FLORANEX) TAB PO SCH ×3 (08:33→16:24)
[2017-04-17] MEDS: ASPIRIN 81 MG ECTAB PO SCH (08:33)
[2017-04-17] MEDS: ANASTROZOLE 1 MG TAB PO SCH (08:34)
[2017-04-17] MEDS: DOXYCYCLINE HYCLATE 100 MG CAP PO SCH ×2 (09:58→20:49)
--- NOTE | 2017-04-17 13:23 | Progress Note ---
Progress Note Date of Service Apr 17, 2017. Progress Note Patient is seen and examined by me. Pt is feeling much better. pt denies cp, sob , dizziness, palpitation and loss of consciousness. Pt is feeling tons better today o2 sat 98% at RA. 81 y/o F Hx breast CA, HTN, HPL, CKD III, multiple PEs, chronic anemia. 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 She was recently admitted with septic shock thought to be related to her chest wound on 04/04. During her admission she was diagnosed with systolic heart failure and an EF of 25%. This was thought related to her septic shock and apparently improved prior to DC 04/15. Since discharge she has noted progressive SOB, increasing exercise intolerance and increased lower extremity edema. Exam and imaging are consistent with recurrence or exacerbation of CHF. She denies CP, productive cough, fevers and does not recall any orthopnea. She states there may be an increased amount of discharge from her wound vac over the past few days. 1) Acute exacerbation of systolic CHF. The pt was not discharged with a diuretic as her CHF may have been due to sepsis and was improving. Additionally , her renal function is impaired and she is at risk of AGUSTIN. Clearly she remains vulnerable to volume overload. - pending cardiology input. - lasix 60 mg iv bid. - consider discharging with home health. - renal function is at best 1.48 however trended BMP with lasix and watch of hypokalemia. 2) Chest wound with wound vac. Infection is chronic - she does c/o increasing discharge - we will consult wound care for now and continue her Doxycycline 3) HTN - cont Metoprolol 4) History of PEs - pt is anticoagulated with Coumadin - INR is therapeutic at 2.6. 5) Anemia - Hb is at baseline 6) CKD II-III - renal function has improved since recent DC 7) Breast CA - is not currently receiving treatment aside for anastrazole which we will continue Full code - anticoagulated with Coumadin
[2017-04-17] MEDS: FUROSEMIDE INJ 60 MG in SYRINGE 0 ML IV SCH (16:23)
[2017-04-17] MEDS: POTASSIUM CHLORIDE 20 MEQ TABCR PO SCH (16:24)
[2017-04-17] MEDS: WARFARIN SOD 2 MG TAB PO SCH (16:25)
[2017-04-17] MEDS: RANITIDINE HCL 150 MG TAB PO SCH (20:48)
[2017-04-17] MEDS: ROSUVASTATIN CALCIUM 20 MG TAB PO SCH (20:48)
--- NOTE | 2017-04-17 21:58 | CARDIOLOGY CONSULTATION ---
DATE OF CONSULTATION: 04/17/2017 CONSULTATION REQUESTED BY: Dr. Regalado. REASON FOR CONSULTATION: Acute systolic heart failure. HISTORY OF PRESENT ILLNESS: Mrs. Valdez is a very pleasant, yet very medically complex 81-year-old woman who was just discharged from [facility] on the . During her most recent admission, she was found to be septic as a complication of her chest wounds, but she also appeared to have catecholamine induced cardiomyopathy at that time. She was initially diuresed; however, given the fact that she was septic with acute renal impairment, diuretics were not continued. She was feeling well on discharge; however, the day after discharge, she started feeling short of breath with exertion and started developing lower extremity edema. This then progressed to the point where last evening just getting ready for bed made her severely dyspneic. She presented to [facility] early in the a.m. of 04/17/2017 and was found to be significantly volume overloaded. She was given a dose of IV furosemide and admitted to telemetry. The patient states that she is feeling better after just one dose of furosemide, but admits that she is not yet back to baseline. Otherwise, she states that she just feels very tired and run down which has been the norm for her as of late, but she denies any chest pain, palpitations, lightheadedness, dizziness, or syncope. PAST SURGICAL HISTORY: 1. Coronary artery bypass grafting surgery x2 in the year 1999 with a CAMACHO to the LAD and radial graft to the circumflex. 2. Follow up cardiac catheterization in 2005 showing an occluded graft to the circumflex and patent a CAMACHO. 3. Laparoscopic cholecystectomy. 4. Colonoscopy. 5. Upper endoscopy. MEDICAL ILLNESSES: 1. Right breast lobular carcinoma on chemo and radiation. 2. 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 3. Coronary artery disease. 4. 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 5. Stage III chronic kidney disease. 6. Chronic anemia. 7. GERD. 8. Hypertension. 9. Mitral regurgitation. 10. Multiple pulmonary emboli. FAMILY HISTORY: Noncontributory. SOCIAL HISTORY: Denies any alcohol, tobacco or recreational drug use. She is . She has 2 children. REVIEW OF SYSTEMS: As per HPI, all other review of systems reviewed and negative at this time. ALLERGIES: NITRO. MEDICATIONS AN OUTPATIENT: 1. Aspirin 81 mg daily. 2. Metoprolol succinate 50 mg p.o. t.i.d. 3. Crestor 40 mg daily. 4. Coumadin as directed. 5. Protonix daily. 6. Flovent b.i.d. 7. Doxycycline b.i.d. 8. Anastrozole daily. PHYSICAL EXAMINATION: VITAL SIGNS: Temperature 36.5, pulse 92, respiratory rate 12, blood pressure 129/84. GENERAL: Awake, alert, oriented x3, chronically ill in appearing and pale but in no acute distress. HEENT: Normocephalic, atraumatic. Pupils equal, round, and reactive to light and accommodation. Extraocular muscles intact. Anicteric sclerae. Moist mucous membranes. NECK: No JVD or bruit. CARDIOVASCULAR: Regular but distant. Soft, holosystolic ejection murmur at the left sternal border. No rubs. PULMONARY: Decreased breath sounds throughout with bibasilar crackles, no rhonchi or wheezing. ABDOMEN: Bowel sounds x4, soft. No rebound, guarding, tenderness. No organomegaly. EXTREMITIES: +1 to 2 bilateral lower extremity pitting edema. SKIN: Warm and dry with diffuse ecchymotic areas across her chest which are bandaged. TEST RESULTS: A 2D echocardiogram performed 04/08/2017, was read as severe global hypokinesis. LV systolic function is severely reduced. EF 20-25%. Chest x-ray performed today was read as cardiomegaly with mildly worsened pulmonary edema, small bilateral pleural effusions with bibasilar consolidative opacities suggesting atelectasis or less likely pneumonia. IMPRESSION: 1. Acute systolic left ventricular heart failure. 2. Ongoing chest wounds with recent septic shock. 3. History of coronary artery disease. 4. 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 5. Acute on chronic renal failure, improving. RECOMMENDATIONS: It was my pleasure to see Mrs. Valdez in consultation today. Unfortunately, she does appear to have become volume overloaded in just a few days since discharge. Luckily, she is no longer septic and her renal function has improved to what appears to be her baseline, so we will continue with diuresis at this point. I will start her on furosemide 60 mg b.i.d. and we will further titrate her medications with diuresis. Her metoprolol succinate should be continued and we will follow her volume status clinically. Otherwise, I will put her on potassium supplementation at this time as well.
[2017-04-17] MEDS ORDERED: NURSING VERBAL MED ORDER ONE (22:15)
[2017-04-17] MEDS: BOOST VANILLA PO SCH (22:17)
[2017-04-18 03:51] VITALS: BP 130/81; PULSE 94; TEMP 36.8; O2SAT 98
[2017-04-18 07:10] LABS: CALCIUM 8.8 mg/dl (8.5-10.1); CREATININE 1.48 mg/dl (0.60-1.20); POTASSIUM 3.7 mmol/L (3.5-5.1)
[2017-04-18 07:13] VITALS: BP 131/79; PULSE 98; TEMP 36.9; O2SAT 93
[2017-04-18] MEDS: FUROSEMIDE INJ 60 MG in SYRINGE 0 ML IV SCH ×2 (08:23→16:50)
[2017-04-18] MEDS: DOXYCYCLINE HYCLATE 100 MG CAP PO SCH ×2 (08:23→20:22)
[2017-04-18] MEDS: METOPROLOL SUCC 50MG EXT REL TAB PO SCH ×3 (08:23→20:21)
[2017-04-18] MEDS: LACTOBACILLUS ACIDOPHILUS (FLORANEX) TAB PO SCH ×3 (08:23→16:52)
[2017-04-18] MEDS: ANASTROZOLE 1 MG TAB PO SCH (08:28)
[2017-04-18] MEDS: ASPIRIN 81 MG ECTAB PO SCH (08:28)
[2017-04-18] MEDS: PANTOprazole SOD 40 MG TAB PO SCH (08:29)
[2017-04-18] MEDS: POTASSIUM CHLORIDE 20 MEQ TABCR PO SCH ×2 (08:29→16:52)
[2017-04-18] MEDS: BOOST VANILLA PO SCH ×3 (08:34→20:21)
[2017-04-18] MEDS ORDERED: ONDANSETRON INJ 2 MG/ML 2 ML VIAL IV PRN (10:15)
[2017-04-18 11:46] VITALS: BMI 36.5
[2017-04-18 12:00] VITALS: BP 127/76; PULSE 89; TEMP 36.8; O2SAT 96
[2017-04-18 12:05] VITALS: BP 136/82; PULSE 99; TEMP 37; O2SAT 93
--- NOTE | 2017-04-18 12:29 | Cardiology Follow-Up ---
Subjective Subjective Date of Service: Apr 18, 2017. Pt evaluation today including: conversation w/ patient, physical exam, chart review, lab review, review of studies, review of inpatient medication list Additional Details: Pt seen and examined, states that she's feeling "ok". Breathing not yet back to baseline and still with lower extremity edema. Denies cp, palpitations, lightheadedness or dizziness. Tele reviewed: sinus rhythm without arrhythmia Problem List Medical Problems: (1) Acute renal failure Status: Acute (2) Congestive heart failure (CHF) Status: Acute (3) Elevated LFTs Status: Acute (4) Hematuria Status: Acute (5) Orthostatic hypertension Status: Acute (6) Sepsis Status: Acute (7) Sepsis affecting skin Status: Acute (8) Septic shock Status: Acute (9) Supratherapeutic INR Status: Acute (10) Supratherapeutic INR Status: Acute Review of Systems Respiratory: + cough, + dyspnea on exertion, No see HPI, No sputum, No wheezing , No shortness of breath, No dyspnea at rest, No hemoptysis, No problem reported Cardiac: + see HPI, + edema, No chest pain, No orthopnea, No PND, No claudication, No palpitations, No problem reported Breast: + problem reported Psychiatric: + anxiety Heme: + clotting problems Objective Vital Signs Last Vital Signs Documentation Date Time Temp Pulse Resp B/P (MAP) Pulse Ox O2 Delivery O2 Flow Rate FiO2 04/18/17 12:05 37.0 99 20 136/82 (100) 93 Room Air 04/17/17 12:00 2.0 Physical Exam: General Appearance: WD/WN, no apparent distress Eyes: bilateral eyes normal inspection, bilateral eyes PERRL, bilateral eyes EOMI ENT: normal ENT inspection, hearing grossly normal, pharynx normal Neck: supple, no adenopathy, thyroid normal, no JVD, no carotid bruits, trachea midline Respiratory/Chest: chest non-tender, lungs clear, normal breath sounds, no respiratory distress, no accessory muscle use, + decreased breath sounds Cardiovascular: regular rate, rhythm, no JVD, no murmur, + gallop/S4 Abdomen: normal bowel sounds, non tender, soft, no organomegaly, no pulsatile mass Extremities: normal inspection, no calf tenderness, + swelling (+1 B/L LE pitting edema) Neurologic/Psychiatric: rim buster II-XII nml as tested, no motor/sensory deficits, alert, normal mood/affect, oriented x 3 Skin: normal color, warm/dry, no rash, + pertinent finding Lymphatic: no adenopathy Assessment and Plan 1. acute decompensated LV systolic heart failure improving diuresing well but still with some slight volume overload will cont with BID IV lasix and reassess volume status clinically in the AM no med changes at this time 2. cardiomyopathy presumed catecholamine induced given clinical context f/u as an outpatient cont to monitor on tele
--- NOTE | 2017-04-18 12:45 | Hospitalist Progress Note ---
Hospitalist Progress Note Date of Service Apr 18, 2017. (Dianna Lin ., SIMA) Subjective Pt evaluation today including: conversation w/ patient, physical exam, lab review, review of studies, review of inpatient medication list Voiding: ortiz catheter in place (clear/yellow urine ) Patient resting in bed. Eating and drinking OK. Breathing continues to improve. +bilateral lower extremity edema. Patient denies any fever, chills, sweats, lightheadedness, dizziness, vision changes, CP, palpitations, wheezing, cough, abdominal pain, nausea, vomiting, diarrhea, urinary symptoms, melena, numbness/tingling, weakness, muscle/joint pain, anxiety/depression, active bleeding, or new skin discoloration/changes. (Dianna Lin ., BRANDOC) Medications Current Inpatient Medications Medications (Trade) Dose Ordered Sig/Sendy Route Start Time Stop Time Status Last Admin Dose Admin Anastrozole (Arimidex Tab) 1 mg DAILY PO 04/17/17 09:00 05/17/17 08:59 04/18/17 08:28 1 MG Aspirin (Ecotrin Tab) 81 mg QAM PO 04/17/17 09:00 05/17/17 08:59 04/18/17 08:28 81 MG Lactobacillus Acidophilus (Floranex Tab) 4 tab TIDM PO 04/17/17 08:00 05/17/17 07:59 04/18/17 08:23 4 TAB Metoclopramide HCl (Reglan Tab) 5 mg QPM PRN PO 04/17/17 05:15 05/17/17 05:14 Metoprolol Succinate (Toprol Xl Tab) 50 mg TID PO 04/17/17 09:00 05/17/17 08:59 04/18/17 08:23 50 MG Pantoprazole Sodium (Protonix Tab) 40 mg QAM PO 04/17/17 09:00 05/17/17 08:59 04/18/17 08:29 40 MG Rosuvastatin Calcium (Crestor Tab) 40 mg HS PO 04/17/17 21:00 05/17/17 20:59 04/17/17 20:48 40 MG Warfarin Sodium (Coumadin Tab) 2 mg DAILY@1600 PO 04/17/17 16:00 05/17/17 15:59 04/17/17 16:25 2 MG Doxycycline Hyclate (Vibramycin Cap) 100 mg BID PO 04/17/17 09:00 04/23/17 08:59 04/18/17 08:23 100 MG Miscellaneous Information (Order Awaiting Action) 1 ea QS N/A 04/17/17 16:00 05/17/17 15:59 Ranitidine HCl (zANTac TAB) 150 mg HS PO 04/17/17 21:00 05/17/17 20:59 04/17/17 20:48 150 MG Albuterol Sulfate (Ventolin 0.083% 2.5MG/3ML Neb) 2.5 mg Q4H PRN INH 04/17/17 05:15 05/17/17 05:14 Acetaminophen (Tylenol Tab) 650 mg Q4H PRN PO 04/17/17 06:15 05/17/17 06:14 Al Hydrox/Mg Hydrox/Simethicone (Maalox Max Susp) 15 ml Q4H PRN PO 04/17/17 06:15 05/17/17 06:14 Magnesium Hydroxide (Milk Of Magnesia Susp) 30 ml Q12H PRN PO 04/17/17 06:15 05/17/17 06:14 Ondansetron HCl (Zofran Inj) 4 mg Q6H PRN IV 04/17/17 06:15 05/17/17 06:14 Polyethylene (Miralax Powder Packet) 17 gm DAILY PRN PO 04/17/17 06:15 05/17/17 06:14 Furosemide 60 mg/ Syringe 6 ml @ 4 mls/min BID17 IV 04/17/17 17:00 05/17/17 16:59 04/18/17 08:23 4 MLS/MIN Enteral Nutritional Formula (Boost) 1 can TID PO 04/17/17 22:15 05/17/17 22:14 04/18/17 08:34 1 CAN Potassium Chloride (Klor-Con Tab) 40 meq BID17 PO 04/18/17 17:00 05/17/17 16:59 (Dianna Lin, SIMA) Objective Vital Signs Date Time Temp Pulse Resp B/P (MAP) Pulse Ox O2 Delivery O2 Flow Rate FiO2 04/18/17 08:00 Room Air 04/18/17 07:13 36.9 98 18 131/79 (96) 93 Room Air 04/18/17 04:00 Room Air 04/18/17 03:51 36.8 94 20 130/81 (97) 98 Room Air 04/18/17 00:00 Room Air 04/17/17 23:20 36.7 94 18 119/69 (86) 92 Room Air 04/17/17 20:30 97 126/78 (94) 04/17/17 20:00 94 Room Air 04/17/17 19:58 94 Room Air 04/17/17 19:23 36.9 94 18 139/84 (102) 90 Room Air 04/17/17 16:30 94 Room Air 04/17/17 16:00 94 Room Air 04/17/17 15:33 36.7 89 16 132/83 (99) 92 Room Air 04/17/17 14:07 36.6 90 20 127/80 (96) 93 Room Air 04/17/17 12:00 98 Nasal Cannula 2.0 04/17/17 11:47 36.5 92 22 129/84 (99) 98 Nasal Cannula 2.0 (Dianna Lin PA-C) Physical Exam General Appearance: no apparent distress Eyes: normal inspection, PERRL ENT: hearing grossly normal Neck: supple Respiratory/Chest: no respiratory distress, no accessory muscle use, + decreased breath sounds, + crackles (bilateral bases ) Cardiovascular: regular rate, rhythm Abdomen: normal bowel sounds, non tender, soft Extremities: no calf tenderness, + swelling (+1 pitting edema of bilateral lower extremities ) Neurologic/Psychiatric: alert, normal mood/affect, oriented x 3 Skin: normal color, warm/dry, no rash (Dianna Lin PA-C) Laboratory Results Last 24 Hours Test 04/17/17 12:49 04/18/17 06:11 Troponin I 0.027 ng/ml Sodium Level 140 mmol/L Potassium Level 3.7 mmol/L Chloride Level 103 mmol/L Carbon Dioxide Level 29 mmol/L Anion Gap 9.0 mmol/L Blood Urea Nitrogen 41 mg/dl Creatinine 1.48 mg/dl Est Creatinine Clear Calc Drug Dose 29.8 ml/min Estimated GFR () 38.6 Estimated GFR (Non- 33.3 BUN/Creatinine Ratio 27.7 Random Glucose 93 mg/dl Calcium Level 8.8 mg/dl (Dianna Lin PA-C) Assessment and Plan 81 y/o F Hx breast CA, HTN, HPL, CKD III, multiple PEs, chronic anemia. 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 She was recently admitted with septic shock thought to be related to her chest wound on 04/04. During her admission she was diagnosed with systolic heart failure and an EF of 25%. This was thought related to her septic shock and apparently improved prior to DC 04/15. Since discharge she has noted progressive SOB, increasing exercise intolerance and increased lower extremity edema. Exam and imaging are consistent with recurrence or exacerbation of CHF. She denies CP, productive cough, fevers and does not recall any orthopnea. She states there may be an increased amount of discharge from her wound vac over the past few days. 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 I agree with history of present illness and physical exam mentioned above, I also performed my own history taking and examination. Past medical history and review of system has been obtained by myself I reviewed all pertinent labs and studies Reviewed current medications I discussed and formulated of the assessment and plan mentioned above by Miss Lin Please refer to the Summary mentioned below. General Appearance: not in acute distress Eyes: normal Sclerae, extraocular muscle intact ENT: hearing grossly normal Neck: supple Respiratory/Chest: normal air entry bilateral ,no respiratory distress, no accessory muscle use Cardiovascular: regular rate, rhythm, no murmur Abdomen: non tender, soft, no masses Extremities: no edema Neurologic/Psychiatric: Awake alert oriented times place and person moves all extremities sensation intact cranial nerves II-12 appear to be intact Skin: normal color, warm/dry, no rash 81-year-old female with history of breast cancer s/p lobectomy chemo/radiation , hypertension, dyslipidemia, chronic kidney stage III, multiple PEs. Currently has wound VAC on left breast secondary to possible skin necrosis secondary to doxorubicin extravasation, presented with Acute exacerbation of systolic CHF w/ EF of 25% and AGUSTIN on CKD stage III continue IV Lasix BID as per cardiology Monitor I&Os and daily weights monitor renal function Joana Tapia MD, [facility] hospitalist group (Joana Judge MD)
[2017-04-18 15:34] VITALS: BP 115/79; PULSE 84; TEMP 36.5; O2SAT 90
[2017-04-18 16:30] VITALS: Ht 152.4 cm; Wt 74.4 kg
[2017-04-18] MEDS: WARFARIN SOD 2 MG TAB PO SCH (16:53)
[2017-04-18 19:28] VITALS: BP 110/74; PULSE 92; TEMP 36.4; O2SAT 92
[2017-04-18] MEDS: ROSUVASTATIN CALCIUM 20 MG TAB PO SCH (20:22)
[2017-04-18] MEDS: RANITIDINE HCL 150 MG TAB PO SCH (20:23)
[2017-04-19] VITALS (10 sets, daily range): BP systolic 101–116; BP diastolic 60–74; PULSE 75–82; TEMP 36.5–36.8; O2SAT 93–98
[2017-04-19 07:02] LABS: HEMATOCRIT 30.7 % (37-47); HEMOGLOBIN 9.9 g/dL (12.0-16.0); MEAN CELL VOLUME 88.5 fL (80-100); MEAN CORPUSCULAR HEMOGLOBIN 28.5 pg (25-34); MEAN CORPUSCULAR HGB CONC 32.2 g/dl (32-36); MEAN PLATELET VOLUME 8.7 fL (7.4-10.4); PLATELET COUNT 259 K/uL (130-400); RED CELL DISTRIBUTION WIDTH CV 16.4 % (11.5-14.5); RED CELL DISTRIBUTION WIDTH SD 52.8 fL (36.4-46.3); WHITE BLOOD COUNT 7.14 K/uL (4.8-10.8)
[2017-04-19 07:23] LABS: INR 3.8 (0.9-1.1)
[2017-04-19] MEDS: WARFARIN SOD 2 MG TAB PO SCH (07:24)
[2017-04-19 07:40] LABS: CALCIUM 8.4 mg/dl (8.5-10.1); CREATININE 1.79 mg/dl (0.60-1.20); POTASSIUM 4.3 mmol/L (3.5-5.1)
[2017-04-19] MEDS: ASPIRIN 81 MG ECTAB PO SCH (08:17)
[2017-04-19] MEDS: METOPROLOL SUCC 50MG EXT REL TAB PO SCH ×3 (08:17→19:53)
[2017-04-19] MEDS: DOXYCYCLINE HYCLATE 100 MG CAP PO SCH ×2 (08:17→19:52)
[2017-04-19] MEDS: ANASTROZOLE 1 MG TAB PO SCH (08:18)
[2017-04-19] MEDS: PANTOprazole SOD 40 MG TAB PO SCH (08:18)
[2017-04-19] MEDS: POTASSIUM CHLORIDE 20 MEQ TABCR PO SCH ×2 (08:19→17:17)
[2017-04-19] MEDS: LACTOBACILLUS ACIDOPHILUS (FLORANEX) TAB PO SCH ×3 (08:20→17:18)
[2017-04-19] MEDS: FUROSEMIDE INJ 60 MG in SYRINGE 0 ML IV SCH (08:20)
[2017-04-19] MEDS: BOOST VANILLA PO SCH ×2 (10:47→19:52)
[2017-04-19] MEDS ORDERED: SODIUM CHLORIDE 0.9% 250ML 250 ML IV ONE (11:15)
--- NOTE | 2017-04-19 11:18 | Cardiology Follow-Up ---
Subjective Subjective Date of Service: Apr 19, 2017. Pt evaluation today including: conversation w/ patient, physical exam, chart review, lab review, review of studies, review of inpatient medication list Additional Details: Pt seen and examined, states that she feels back to her normal baseline now except for some slight pedal edema. Denies cp, sob, palpitations, lightheadedness or dizziness. Tele reviewed: sinus without arrhythmia Problem List Medical Problems: (1) Acute renal failure Status: Acute (2) Congestive heart failure (CHF) Status: Acute (3) Elevated LFTs Status: Acute (4) Hematuria Status: Acute (5) Orthostatic hypertension Status: Acute (6) Sepsis Status: Acute (7) Sepsis affecting skin Status: Acute (8) Septic shock Status: Acute (9) Supratherapeutic INR Status: Acute (10) Supratherapeutic INR Status: Acute Review of Systems Respiratory: + cough, + dyspnea on exertion, No see HPI, No sputum, No wheezing , No shortness of breath, No dyspnea at rest, No hemoptysis, No problem reported Cardiac: + see HPI, + edema, No chest pain, No orthopnea, No PND, No claudication, No palpitations, No problem reported Breast: + problem reported Psychiatric: + anxiety Heme: + clotting problems Objective Vital Signs Last Vital Signs Documentation Date Time Temp Pulse Resp B/P (MAP) Pulse Ox O2 Delivery O2 Flow Rate FiO2 04/19/17 08:00 Room Air 2.0 04/19/17 07:24 36.8 75 16 112/71 (85) 98 Physical Exam: General Appearance: no apparent distress Eyes: bilateral eyes normal inspection, bilateral eyes PERRL, bilateral eyes EOMI ENT: hearing grossly normal Neck: supple Respiratory/Chest: no respiratory distress, no accessory muscle use, + decreased breath sounds, + crackles (bilateral bases ) Cardiovascular: regular rate, rhythm Abdomen: normal bowel sounds, non tender, soft Extremities: no calf tenderness, + swelling (+1 pitting edema of bilateral lower extremities ) Neurologic/Psychiatric: alert, normal mood/affect, oriented x 3 Skin: normal color, warm/dry, no rash Lymphatic: no adenopathy Assessment and Plan 1. acute decompensated LV systolic heart failure improved has diuresed well now back to baseline I would change IV lasix to po at this time I would recommend d/c to home today with lasix 60mg po bid for 3 days we will then have her evaluated in our CHF clinic on Tuesday (my office is working to find appointment after 2PM to suit the patient's preference) further diuretic management will be determined at that time, likely decreasing lasix to daily cont coreg will hold off maria elena/arb for now with borderline renal function and recent history of AGUSTIN 2. cardiomyopathy presumed catecholamine induced given clinical context f/u as an outpatient ok to d/c to home from cardiac standpoint my office will arrange outpatient follow up with the patient
--- NOTE | 2017-04-19 11:41 | Progress Note ---
Progress Note Date of Service Apr 19, 2017. Progress Note Patient scheduled on at 2:30PM with Dr. Viera at [facility] for follow up.
[2017-04-19] MEDS: SODIUM CHLORIDE 0.9% 1000ML 1,000 ML IV SCH (12:11)
--- NOTE | 2017-04-19 12:37 | Hospitalist Progress Note ---
Hospitalist Progress Note Date of Service Apr 19, 2017. (Dianna Lin ., BRANDOC) Subjective Pt evaluation today including: conversation w/ patient, physical exam, lab review, review of inpatient medication list Voiding: ortiz catheter in place Patient resting in bed. Feeling well. Eating and drinking OK. Denies any pain. No SOB. On 2L NC- wean as tolerated. Will discontinue Ortiz today. +mild lower extremity edema. Patient denies any fever, chills, sweats, lightheadedness, dizziness, vision changes, CP, palpitations, SOB, wheezing, cough, abdominal pain, nausea, vomiting, diarrhea, urinary symptoms, melena, numbness/tingling, weakness, muscle/joint pain, anxiety/depression, active bleeding, or new skin discoloration/changes. (Dianna Lin ., FENG-C) Medications Current Inpatient Medications Medications (Trade) Dose Ordered Sig/Sendy Route Start Time Stop Time Status Last Admin Dose Admin Anastrozole (Arimidex Tab) 1 mg DAILY PO 04/17/17 09:00 05/17/17 08:59 04/19/17 08:18 1 MG Aspirin (Ecotrin Tab) 81 mg QAM PO 04/17/17 09:00 05/17/17 08:59 04/19/17 08:17 81 MG Lactobacillus Acidophilus (Floranex Tab) 4 tab TIDM PO 04/17/17 08:00 05/17/17 07:59 04/19/17 12:11 4 TAB Metoclopramide HCl (Reglan Tab) 5 mg QPM PRN PO 04/17/17 05:15 05/17/17 05:14 Metoprolol Succinate (Toprol Xl Tab) 50 mg TID PO 04/17/17 09:00 05/17/17 08:59 04/19/17 08:17 50 MG Pantoprazole Sodium (Protonix Tab) 40 mg QAM PO 04/17/17 09:00 05/17/17 08:59 04/19/17 08:18 40 MG Rosuvastatin Calcium (Crestor Tab) 40 mg HS PO 04/17/17 21:00 05/17/17 20:59 04/18/17 20:22 40 MG Warfarin Sodium (Coumadin Tab) 2 mg DAILY@1600 PO 04/17/17 16:00 05/17/17 15:59 Future Hold 04/18/17 16:53 2 MG Doxycycline Hyclate (Vibramycin Cap) 100 mg BID PO 04/17/17 09:00 04/23/17 08:59 04/19/17 08:17 100 MG Miscellaneous Information (Order Awaiting Action) 1 ea QS N/A 04/17/17 16:00 05/17/17 15:59 Ranitidine HCl (zANTac TAB) 150 mg HS PO 04/17/17 21:00 05/17/17 20:59 04/18/17 20:23 150 MG Albuterol Sulfate (Ventolin 0.083% 2.5MG/3ML Neb) 2.5 mg Q4H PRN INH 04/17/17 05:15 05/17/17 05:14 Acetaminophen (Tylenol Tab) 650 mg Q4H PRN PO 04/17/17 06:15 05/17/17 06:14 Al Hydrox/Mg Hydrox/Simethicone (Maalox Max Susp) 15 ml Q4H PRN PO 04/17/17 06:15 05/17/17 06:14 Magnesium Hydroxide (Milk Of Magnesia Susp) 30 ml Q12H PRN PO 04/17/17 06:15 05/17/17 06:14 Ondansetron HCl (Zofran Inj) 4 mg Q6H PRN IV 04/17/17 06:15 05/17/17 06:14 04/18/17 14:06 4 MG Polyethylene (Miralax Powder Packet) 17 gm DAILY PRN PO 04/17/17 06:15 05/17/17 06:14 Potassium Chloride (Klor-Con Tab) 40 meq BID17 PO 04/18/17 17:00 05/17/17 16:59 04/19/17 08:19 40 MEQ Enteral Nutritional Formula (Boost) 1 can BID@1000,2100 PO 04/18/17 21:00 05/18/17 20:59 04/19/17 10:47 1 CAN Sodium Chloride 1,000 ml @ 50 mls/hr Q20H IV 04/19/17 11:45 05/19/17 11:44 04/19/17 12:11 50 MLS/HR (Dianna Lin, SIMA) Objective Vital Signs Date Time Temp Pulse Resp B/P (MAP) Pulse Ox O2 Delivery O2 Flow Rate FiO2 04/19/17 11:38 36.5 76 18 110/71 (84) 96 Room Air 04/19/17 08:00 Room Air 2.0 04/19/17 07:24 36.8 75 16 112/71 (85) 98 Nasal Cannula 2.0 04/19/17 04:00 36.6 78 18 110/74 (86) 98 Nasal Cannula 2.0 04/19/17 04:00 Nasal Cannula 2.0 04/19/17 00:47 36.7 80 18 101/67 (78) 96 Nasal Cannula 2.0 04/19/17 00:00 Nasal Cannula 2.0 04/18/17 20:00 Room Air 04/18/17 19:28 36.4 92 18 110/74 (86) 92 Room Air 04/18/17 16:00 Room Air 04/18/17 15:34 36.5 84 18 115/79 (91) 90 Room Air (Dianna Lin, PA-C) Physical Exam General Appearance: no apparent distress, + pertinent finding (O2 NC ) Eyes: normal inspection, PERRL ENT: hearing grossly normal Neck: supple Respiratory/Chest: no respiratory distress, no accessory muscle use, + crackles (bilateral lung bases ) Cardiovascular: regular rate, rhythm Abdomen: normal bowel sounds, non tender, soft Extremities: no calf tenderness, + swelling (trace pitting edema to bilateral lower extremities ) Neurologic/Psychiatric: alert, normal mood/affect, oriented x 3 Skin: normal color, warm/dry, no rash (Dianna Lin ., PA-C) Laboratory Results Last 24 Hours Test 04/19/17 06:21 White Blood Count 7.14 K/uL Red Blood Count 3.47 M/uL Hemoglobin 9.9 g/dL Hematocrit 30.7 % Mean Corpuscular Volume 88.5 fL Mean Corpuscular Hemoglobin 28.5 pg Mean Corpuscular Hemoglobin Concent 32.2 g/dl RDW Standard Deviation 52.8 fL RDW Coefficient of Variation 16.4 % Platelet Count 259 K/uL Mean Platelet Volume 8.7 fL Prothrombin Time 39.1 SECONDS Prothromb Time International Ratio 3.8 Sodium Level 138 mmol/L Potassium Level 4.3 mmol/L Chloride Level 102 mmol/L Carbon Dioxide Level 33 mmol/L Anion Gap 3.0 mmol/L Blood Urea Nitrogen 41 mg/dl Creatinine 1.79 mg/dl Est Creatinine Clear Calc Drug Dose 23.4 ml/min Estimated GFR () 30.7 Estimated GFR (Non- 26.5 BUN/Creatinine Ratio 22.8 Random Glucose 82 mg/dl Calcium Level 8.4 mg/dl (Dianna Lin, SIMA) Assessment and Plan 81 y/o F Hx breast CA, HTN, HPL, CKD III, multiple PEs, chronic anemia. 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 She was recently admitted with septic shock thought to be related to her chest wound on 04/04. During her admission she was diagnosed with systolic heart failure and an EF of 25%. This was thought related to her septic shock and apparently improved prior to DC 04/15. Since discharge she has noted progressive SOB, increasing exercise intolerance and increased lower extremity edema. Exam and imaging are consistent with recurrence or exacerbation of CHF. She denies CP, productive cough, fevers and does not recall any orthopnea. She states there may be an increased amount of discharge from her wound vac over the past few days. Acute exacerbation of systolic CHF w/ EF of 25%: - Admitted to tele for cardiac monitoring- no acute events, transfer to med/ surg - IV Lasix 60 mg BID as per cardiology- discontinued today due to bump in client consultant - Monitor I&Os and daily weights- negative 4L, weight 77 kg - Klor-Con 40 mEq BID- K 4.3, will hold HS dose due to stopping Lasix - Cardiology consulted, appreciate recommendations- stable for discharge from there standpoint, f/u on h/o CAD, HTN, HLD: Crestor 40 mg daily, Metoprolol 50 mg TID, ASA 81 mg daily AGUSTIN on CKD stage III- baseline client consultant 1.00: - Bump in client consultant to 1.79 today- will gently hydrated w/ IV NSS 250 cc bolus + 50 ml /hr overnight, stop IV Lasix - Follow PRP - Hold nephrotoxic agents and renally dose medications as appropriate Chest wound with wound vac w/ recent septic shock: - Wound care consulted, appreciate recommendations- changed dressings on 04/19 - Continue Doxycycline and Floranex - BCx- NGTD h/o of PE: Hold Coumadin tonight due to INR of 3.8- titrate PRN for INR goal of 2-3 Anemia- STABLE: Follow CBC Breast CA: Continue Anastrazole GI prophylaxis: Zantac + Protonix DVT prophylaxis: Coumadin Code Status: LEVEL I, FULL Dispo: From home- PT/OT and CM consulted- hopeful discharge to home tomorrow - Staying overnight due to pending PT/OT, wean from O2, and bump in client consultant (Dianna Lin, PATejaC) I personally interviewed and examined the patient. I agree with history of present illness and physical exam mentioned above, I also performed my own history taking and examination. Past medical history and review of system has been obtained by myself I reviewed all pertinent labs and studies Reviewed current medications I discussed and formulated of the assessment and plan mentioned above by Delia Please refer to the Summary mentioned below. General Appearance: not in acute distress Eyes: normal Sclerae, extraocular muscle intact ENT: hearing grossly normal Neck: supple Respiratory/Chest: normal air entry bilateral ,no respiratory distress, no accessory muscle use Cardiovascular: regular rate, rhythm, no murmur Abdomen: non tender, soft, no masses Extremities: no edema Neurologic/Psychiatric: Awake alert oriented times place and person moves all extremities sensation intact cranial nerves II-12 appear to be intact Skin: normal color, warm/dry, no rash 81-year-old female with history of breast cancer s/p lobectomy chemo/radiation , hypertension, dyslipidemia, chronic kidney stage III, multiple PEs. Currently has wound VAC on left breast secondary to possible skin necrosis secondary to doxorubicin extravasation, Patient follow-up acute and chronic renal failure secondary to overdiuresis presented with Acute exacerbation of systolic CHF w/ EF of 25% and AGUSTIN on CKD stage III Discontinue IV Lasix BID Very gentle IV fluid hydration Monitor I&Os and daily weights monitor renal function Joana Tapia MD, [facility] hospitalist group (Joana Judge MD)
[2017-04-19] MEDS: FUROSEMIDE 20 MG TAB PO SCH (17:22)
[2017-04-19] MEDS: RANITIDINE HCL 150 MG TAB PO SCH (19:53)
[2017-04-19] MEDS: ROSUVASTATIN CALCIUM 20 MG TAB PO SCH (19:54)
[2017-04-20 03:27] VITALS: BP 113/71; PULSE 78; TEMP 36.6; O2SAT 92
[2017-04-20] MEDS: SODIUM CHLORIDE 0.9% 1000ML 1,000 ML IV SCH (04:56)
[2017-04-20 06:14] LABS: HEMATOCRIT 31.2 % (37-47); MEAN CELL VOLUME 89.1 fL (80-100); MEAN CORPUSCULAR HEMOGLOBIN 28.6 pg (25-34); MEAN CORPUSCULAR HGB CONC 32.1 g/dl (32-36); MEAN PLATELET VOLUME 8.7 fL (7.4-10.4); PLATELET COUNT 238 K/uL (130-400); RED CELL DISTRIBUTION WIDTH CV 16.2 % (11.5-14.5); RED CELL DISTRIBUTION WIDTH SD 52.4 fL (36.4-46.3); WHITE BLOOD COUNT 7.04 K/uL (4.8-10.8)
[2017-04-20 06:53] LABS: CALCIUM 8.4 mg/dl (8.5-10.1); CREATININE 1.71 mg/dl (0.60-1.20); POTASSIUM 4.3 mmol/L (3.5-5.1)
[2017-04-20 07:55] VITALS: BP 122/80; PULSE 78; TEMP 36.7; O2SAT 94
[2017-04-20] MEDS: PANTOprazole SOD 40 MG TAB PO SCH (08:52)
[2017-04-20] MEDS: ASPIRIN 81 MG ECTAB PO SCH (08:52)
[2017-04-20] MEDS: LACTOBACILLUS ACIDOPHILUS (FLORANEX) TAB PO SCH ×2 (08:52→14:14)
[2017-04-20] MEDS: FUROSEMIDE 20 MG TAB PO SCH (08:53)
[2017-04-20] MEDS: POTASSIUM CHLORIDE 20 MEQ TABCR PO SCH (08:53)
[2017-04-20] MEDS: METOPROLOL SUCC 50MG EXT REL TAB PO SCH ×2 (08:53→14:13)
[2017-04-20] MEDS: DOXYCYCLINE HYCLATE 100 MG CAP PO SCH (08:53)
[2017-04-20] MEDS: ANASTROZOLE 1 MG TAB PO SCH (08:55)
[2017-04-20] MEDS ORDERED: DOXY1TAB6 PO (10:47)
[2017-04-20] MEDS ORDERED: LSX40 PO (10:47)
--- NOTE | 2017-04-20 10:59 | Discharge Instructions ---
Discharge Instructions Date of Service Apr 20, 2017. Admission Reason for Admission: CHF Discharge Discharge Diagnosis / Problem: Congestive heart failure Discharge Goals Goal(s): Decrease discomfort, Improve function, Improve disease control, Learn about illness, Diagnostic testing, Therapeutic intervention, Prevent Disease Progression Activity Recommendations Activity Limitations: resume your previous activity . Instructions / Follow-Up Instructions / Follow-Up Congestive heart failure: Begin Lasix 40 mg daily on Tuesday (04/22) I have given you a script for blood work. Please get blood work 1-2 days prior to PCP follow-up. This is to follow your kidney function since starting Lasix Resume all other regular home medications FOLLOW-UPS: Please follow-up with your PCP within 5-7 days Continue routine INR checks Continue Wound care Please follow-up with Cardiology as scheduled on 04/21 Please follow-up/keep all of your subspecialty appointments Call your Primary Care doctor if any of the following symptoms or problems start or get worse: * Shortness of breath or difficulty breathing * Wake up at night short of breath * Chest pain * Cough * Swelling of your hands, feet, or legs * More fatigued or tired with your normal activity * Palpitations - sudden fast heart beats WEIGHT * Weigh yourself every morning after using the bathroom. * Use the same scale. * Wear the same amount of clothing. * Write your weight down on a chart. * Call your Primary Care doctor if you gain more than 2-3 pounds in 1-2 days. MEDICATIONS * Use this discharge instruction sheet for medication instructions. * Take your medications at the time your doctor ordered. * Do not skip a dose of your medicines. * If you miss a dose of medicine, take it as soon as possible, but DO NOT DOUBLE A DOSE. * Read your medicine information when you get home. * Know all of the side effects of your medicine. If in doubt, ask your pharmacist * Call your Primary Care doctor's office if you have any side effects. * Be sure all of your doctors know what medicine and herbs you take (including cold, flu, and herbal medicine). Take the following with you to your follow-up doctor appointments: * Weight Chart * Medication List * List of questions Do not drink excessive alcohol, beer or wine. Current Hospital Diet Patient's current hospital diet: AHA Diet (Heart Healthy), Low Sodium Diet (2gm Na) Discharge Diet Recommended Diet: AHA Diet (Heart Healthy), Low Sodium Diet (2gm Na) Pending Studies Studies pending at discharge: no Laboratory Results Hemoglobin A1c Test 04/04/17 22:49 Range/Units Estimated Average Glucose 117 mg/dl Hemoglobin A1c 5.7 H 4.5-5.6 % Medical Emergencies . Who to Call and When: Call 911 or go to the Emergency Room if: * If at any time you feel your situation is an emergency * You have tightness or pain in your chest that does not go away with rest or Nitroglycerin * You are very short of breath even with rest . Non-Emergent Contact Non-Emergency issues call your: Primary Care Provider, Meter Reader Inspector Call Non-Emergent contact if: you have any medication questions . . "Provider Documentation" section prepared by Dianna Lin. . VTE Core Measure Inpt VTE Proph given/why not?: Warfarin (Coumadin)
--- NOTE | 2017-04-20 10:59 | Discharge Summary ---
Discharge Summary Date of Service Apr 20, 2017. Discharge Summary Admission Date: Apr 17, 2017 at 06:13 Discharge Date: Apr 20, 2017 Discharge Disposition: Home with services Principal Diagnosis: CHF Problems/Secondary Diagnoses: Acute exacerbation of systolic CHF w/ EF of 25% h/o CAD HTN HLD AGUSTIN on CKD stage III Chest wound with wound vac w/ recent septic shock h/o of PE Anemia Breast CA Immunizations: Have You Had Influenza Vaccine: N/A History of Tetanus Vaccine?: Yes History of Pneumococcal: Yes History of Hepatitis B Vaccine: No Procedures: Cardiology Consultations: CHEST 2 VIEWS ROUTINE HISTORY: 81 years-old Female sob acute dyspnea with shortness of breath COMPARISON: Chest radiograph 04/11/2017 TECHNIQUE: Portable AP and lateral views of the chest FINDINGS: Cardiac silhouette is again enlarged, unchanged. Atherosclerosis of the aorta. Prior median sternotomy. Left subclavian [id number] catheter appears unchanged. Surgical clips project over the left mediastinum. There is no pneumothorax identified. Small bilateral pleural effusions with bibasilar consolidative opacities appear unchanged. Pulmonary vascular congestion with mildly worsened mild to moderate appearing pulmonary edema. Bones of the chest appear grossly intact. IMPRESSION: 1. Cardiomegaly with mildly worsened pulmonary edema. 2. Small bilateral pleural effusions with bibasilar consolidative opacities suggesting atelectasis or less likely pneumonia. The above report was generated using voice recognition software. It may contain grammatical, syntax or spelling errors. Electronically signed by: Darrell Romo M.D. 04/17/2017 6:51 AM Dictated Date/Time: 04/17/2017 6:49 AM The status of this report is Signed. Draft = Not yet reviewed or approved by Radiologist. Signed = Reviewed and approved by Radiologist. Medication Reconciliation New Medications: Furosemide (Furosemide) 40 Mg Tab 40 MG PO daily for 30 Days, #30 TAB START ON 04/22 Changed Medications: Doxycycline Hyclate (Doxycycline Hyclate) 100 Mg Tab 100 MG PO BID for 10 Days, #20 TAB (Changed from: take with food) take with food First day of therapy was on 04/16 Continued Medications: Albuterol Hfa (Ventolin Hfa) 200 Puffs/21017 Mcg Aers 1-2 PUFFS INH Q4-6H PRN for Shortness of Breath, #1 INHALER Anastrozole (Anastrozole) 1 Mg Tab 1 MG PO DAILY for 90 Days, #90 TAB 3 Refills Aspirin (Aspirin) 81 Mg Tab 81 MG PO QAM Calcium Carbonate-Vitamin D (Calcium + D) 1 Tab Tab 1 TAB PO BID Fluticasone Propionate (Inhala (Flovent Diskus) 100 Mcg/Blist Aer 2 PUFFS INH BID, #1 INHALER 5 Refills Lactobacillus Acidophilus (Floranex) 1 Tab Tab 4 TAB PO TIDM for 21 Days, #252 TAB 0 Refills Metoclopramide (Reglan) 10 Mg Tab 5 MG PO QPM PRN for Dyspepsia, #6 TAB NAUSEA Metoprolol Succinate (Metoprolol Succinate ER) 50 Mg Tabcr 50 MG PO TID Pantoprazole (Protonix) 40 Mg Tab 40 MG PO QAM, 0 Refills Polyethylene Glycol 3350 (Miralax) 1 Pow Pow 17 GM PO prn, #255 GM Ranitidine (Zantac) 300 Mg Tab 150 MG PO HS Rosuvastatin Calcium (Crestor) 40 Mg Tab 40 MG PO HS, TAB Warfarin Sodium (Coumadin) 1 Mg Tab 1 MG PO 4XWK for 30 Days, TAB 5 Refills pt takes on sun.,mon.,wed,.tuesday at 4pm Warfarin Sodium (Coumadin) 2 Mg Tab 2 MG PO 3XWK, TAB pt takes on .,., and tuesday at 4pm Discontinued Medications: Lactobacillus Acidophilus (Lactinex) Tab 4 TABS PO TIDM, TAB Referrals At Discharge Follow up Referrals: Family Practice Referral - Within 1-2 Weeks with Lucian Noe M.D. Discharge Exam Review of Systems: Constitutional: No fever, No chills, No sweats, No weakness, No fatigue Eyes: No worsening of vision ENT: No hearing loss Respiratory: No cough, No shortness of breath, No hemoptysis Cardiovascular: No chest pain, No orthopnea, No PND, No edema, No claudication Abdomen: No pain, No nausea, No vomiting, No diarrhea, No constipation Musculoskeletal: No joint pain, No muscle pain, No swelling, No calf pain Genitourinary - Female: No dysuria, No hematuria Neurologic: No weakness, No numbness/tingling Psychiatric: No depression symptoms, No anxiety Endocrine: No fatigue Hematologic / Lymphatic: No abnormal bleeding/bruising Integumentary: No rash, No itch, No new/changing skin lesions Physical Exam: General Appearance: no apparent distress Eyes: normal inspection, PERRL ENT: hearing grossly normal Neck: supple Respiratory/Chest: lungs clear, no respiratory distress, no accessory muscle use Cardiovascular: regular rate, rhythm Abdomen / GI: normal bowel sounds, non tender, soft Extremities: no calf tenderness, no pedal edema Neurologic/Psychiatric: alert, normal mood/affect, oriented x 3 Skin: normal color, warm/dry, no rash Hospital Course 81 y/o F Hx breast CA, HTN, HPL, CKD III, multiple PEs, chronic anemia. 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 She was recently admitted with septic shock thought to be related to her chest wound on 04/04. During her admission she was diagnosed with systolic heart failure and an EF of 25%. This was thought related to her septic shock and apparently improved prior to DC 04/15. Since discharge she has noted progressive SOB, increasing exercise intolerance and increased lower extremity edema. Exam and imaging are consistent with recurrence or exacerbation of CHF. She denies CP, productive cough, fevers and does not recall any orthopnea. She states there may be an increased amount of discharge from her wound vac over the past few days. Acute exacerbation of systolic CHF w/ EF of 25%: - Admitted to tele for cardiac monitoring- no acute events, transfer to med/ surg - IV Lasix 60 mg BID as per cardiology- discontinued on 03/29 due to bump in diamond sizer- recommend starting Lasix 40 mg daily on 04/22 - Monitor I&Os and daily weights- negative 5L, weight 74 kg - Replaced K w/ KCL supplement while on IV Lasix - Cardiology consulted, appreciate recommendations- stable for discharge from their standpoint, f/u on h/o CAD, HTN, HLD: Crestor 40 mg daily, Metoprolol 50 mg TID, ASA 81 mg daily AGUSTIN on CKD stage III- baseline diamond sizer 1.00: - Improvement in diamond sizer to 1.71 today- gently hydrated w/ IV NSS 250 cc bolus + 50 ml/hr overnight, stop IV Lasix - Follow PRP- instructed patient to start Lasix 40 daily on 04/22, script given for PRP prior to PCP appointment to follow kidney function - Hold nephrotoxic agents and renally dose medications as appropriate Chest wound with wound vac w/ recent septic shock: - Wound care consulted, appreciate recommendations- changed dressings on 04/19 - Continue Doxycycline and Floranex - BCx- NGTD h/o of PE: Continue Coumadin- titrate PRN for INR goal of 2-3 Anemia- STABLE: Follow CBC Breast CA: Continue Anastrazole GI prophylaxis: Zantac + Protonix DVT prophylaxis: Coumadin Code Status: LEVEL I, FULL Dispo: Discharge to home w/ HHS I personally interviewed and examined the patient. I agree with history of present illness and physical exam mentioned above, I also performed my own history taking and examination. Past medical history and review of system has been obtained by myself I reviewed all pertinent labs and studies Reviewed current medications I discussed and formulated of the assessment and hospital course mentioned above by Miss Lin Please refer to the Summary mentioned below. General Appearance: not in acute distress Eyes: normal Sclerae, extraocular muscle intact ENT: hearing grossly normal Neck: supple Respiratory/Chest: normal air entry bilateral ,no respiratory distress, no accessory muscle use Cardiovascular: regular rate, rhythm, no murmur Abdomen: non tender, soft, no masses Extremities: no edema Neurologic/Psychiatric: Awake alert oriented times place and person moves all extremities sensation intact cranial nerves II-12 appear to be intact Skin: normal color, warm/dry, no rash 81-year-old female with history of breast cancer s/p lobectomy chemo/radiation , hypertension, dyslipidemia, chronic kidney stage III, multiple PEs. Currently has wound VAC on left breast secondary to possible skin necrosis secondary to doxorubicin extravasation, Patient developed acute and chronic renal failure secondary to overdiuresis presented with Acute exacerbation of systolic CHF w/ EF of 25% and AGUSTIN on CKD stage III Discontinued IV Lasix 60mg BID Very gentle IV fluid hydration Renal function is still higher than baseline but stable. She was instructed to hold her Lasix until Tuesday, she will be started on 40 mg by mouth daily she will follow up with wound treatment rn tomorrow Joana Tapia MD, [facility] hospitalist group will Total Time Spent: Greater than 30 minutes This includes examination of the patient, discharge planning, medication reconciliation, and communication with other providers. Discharge Instructions Please refer to the electronic Patient Visit Report (Discharge Instructions) for additional information. Follow-Up Please follow-up with your PCP within 5-7 days Continue routine INR checks Continue Wound care Please follow-up with Cardiology as scheduled on 04/21 Please follow-up/keep all of your subspecialty appointments Additional Copies To Lucian Noe M.D.
[2017-04-20 11:44] VITALS: BP 122/75; PULSE 78; TEMP 36.8; O2SAT 93
[2017-04-20 11:45] VITALS: BP 153/73; PULSE 57; TEMP 37; O2SAT 100
[2017-04-20] MEDS: BOOST VANILLA PO SCH (11:58)
[2017-04-20 14:13] VITALS: BP 121/79; PULSE 82
== END 2017-04-20 15:00 | disposition home health service (06) | DRG 291 ==
LOC: C.EDB 01:55 → C.MED 06:13 → ENRESERV 06:42 → EDBEDREQ 04-19 16:52 → ENRESERV 04-19 16:57 → C.4E 04-19 18:15
PROVIDERS: ADMIT Internal Medicine; ATTEND Internal Medicine
DX: I13.0 Hypertensive heart and chronic kidney disease with heart failure and stage 1 through stage 4 chronic kidney disease, or unspecified chronic kidney disease (principal); I50.23 Acute on chronic systolic (congestive) heart failure; N17.9 Acute kidney failure, unspecified; I96 Gangrene, not elsewhere classified; I42.8 Other cardiomyopathies; C50.911 Malignant neoplasm of unspecified site of right female breast; S21.002D Unspecified open wound of left breast, subsequent encounter; L08.89 Other specified local infections of the skin and subcutaneous tissue; T45.1X5D Adverse effect of antineoplastic and immunosuppressive drugs, subsequent encounter; N18.3 Chronic kidney disease, stage 3 (moderate); I25.10 Atherosclerotic heart disease of native coronary artery without angina pectoris; I34.0 Nonrheumatic mitral (valve) insufficiency; K21.9 Gastro-esophageal reflux disease without esophagitis; E78.5 Hyperlipidemia, unspecified; D64.9 Anemia, unspecified; I25.2 Old myocardial infarction; Z95.1 Presence of aortocoronary bypass graft; Z96.659 Presence of unspecified artificial knee joint; Z92.21 Personal history of antineoplastic chemotherapy; Z92.3 Personal history of irradiation; Z86.711 Personal history of pulmonary embolism; Z87.891 Personal history of nicotine dependence; Z79.01 Long term (current) use of anticoagulants; Z79.2 Long term (current) use of antibiotics; Z79.82 Long term (current) use of aspirin; Z79.51 Long term (current) use of inhaled steroids; Z79.811 Long term (current) use of aromatase inhibitors; Z79.899 Other long term (current) drug therapy

== ENCOUNTER 2017-04-22 15:31 | Emergency (ER) | payer MEDICARE, OTHER ==
[~2017-04-22] VITALS: Ht 152.4 cm; Wt 72.0 kg
[~2017-04-22 15:31] MED LIST changes: +ANAS1TAB6 PO; -ARM1 PO; -CMD1 PO; -CMD2 PO; +DOXY1TAB6 PO; -DXY100 PO; +LSX40 PO; +WARF1TAB PO; +WARF2TAB PO
[2017-04-22 15:40] VITALS: Ht 152.4 cm; Wt 72.0 kg
--- NOTE | 2017-04-22 16:09 | EMERGENCY ROOM VISIT NOTE ---
History Report prepared by Lizy: Eddie Rodriguez Under the Supervision of: Dr. Kodi Davis M.D. First contact with patient: 15:54 Chief Complaint: SHORTNESS OF BREATH Stated Complaint: WEAK-HARD BREATHING History of Present Illness The patient is a 81 year old female who presents to the Emergency Room with complaints of intermittent shortness of breath with walking starting today. The patient states that she was discharged from the hospital two days ago after a fluid overload, and when discharged she was able to breathe well. The patient states that she is having more leg swelling than usual today. The patient reports that she took her fluid pill this morning for the first time, and she has been urinating more often today. She additionally adds that her legs are weak. She denies any fevers or coughs. The patient is currently going through chemotherapy for breast cancer, and she currently has a wound VAC. She is currently on Coumadin after having a blood clot, and she is unsure of her last INR. Source of History: patient Onset: this morning Position: other (global) Quality: other (shortness of breath) Timing: intermittent Modifying Factors (Worsening): other (walking) Associated Symptoms: + weakness, No fevers, No cough Review of Systems See HPI for pertinent positives & negatives. A total of 10 systems reviewed and were otherwise negative. Past Medical & Surgical Medical Problems: (1) AGUSTIN (acute kidney injury) (2) Anemia (3) Anticoagulants,Lt,Current Use (4) Asthma, Unspecified, W (Acute) Exacerbation (5) Bilateral pulmonary embolism (6) Breast cancer (7) CHF (congestive heart failure) (8) Hypertension Nos (9) Near syncope (10) Old Myocardial Infarct (11) Open wound of chest (wall), complicated (12) Oth Pulmon Embolism/Infarct Surgical Problems: (1) History of knee replacement Family History Cancer Diabetes mellitus Myocardial infarction Social History Smoking Status: Former Smoker Alcohol Use: none Drug Use: none Marital Status: Housing Status: lives alone Occupation Status: retired Current/Historical Medications Scheduled Albuterol Hfa (Ventolin Hfa), 1-2 PUFFS INH Q4-6H Anastrozole (Anastrozole), 1 MG PO DAILY Aspirin (Aspirin), 81 MG PO QAM Calcium Carbonate-Vitamin D (Calcium + D), 1 TAB PO BID Doxycycline Hyclate (Doxycycline Hyclate), 100 MG PO BID Fluticasone Propionate (Inhala (Flovent Diskus), 2 PUFFS INH BID Furosemide (Lasix), 40 MG PO DAILY Lactobacillus (Floranex), 1 TAB PO TIDM Metoprolol Succinate (Metoprolol Succinate ER), 50 MG PO TID Pantoprazole (Protonix), 40 MG PO QAM Polyethylene Glycol 3350 (Miralax), 17 GM PO prn Ranitidine (Zantac), 150 MG PO HS Rosuvastatin Calcium (Crestor), 40 MG PO HS Warfarin Sodium (Coumadin), 1 MG PO 4XWK Warfarin Sodium (Coumadin), 2 MG PO 3XWK Scheduled PRN Metoclopramide (Reglan), 5 MG PO QPM PRN for Dyspepsia Allergies Coded Allergies: Nitroglycerin (Verified Allergy, Intermediate, BP Decreases, HR Increases , 04/22/17) REACTION WITH SUBLINGUAL PER RECORDS Physical Exam Vital Signs Date Time Temp Pulse Resp B/P (MAP) Pulse Ox O2 Delivery O2 Flow Rate FiO2 04/22/17 18:05 36.8 93 18 156/89 97 Room Air 04/22/17 17:06 36.9 84 18 153/81 97 Room Air 04/22/17 16:19 97 Room Air 04/22/17 15:40 36.5 83 18 142/77 98 Room Air Physical Exam GENERAL: Patient is in no acute distress. HEENT: No acute trauma, normocephalic atraumatic, mucous membranes moist, no nasal congestion, no scleral icterus. NECK: No stridor, no adenopathy, no meningismus, trachea is midline. LUNGS: Clear to auscultation bilaterally, no wheeze, no rhonchi, breath sounds equal. HEART: Without murmurs gallops or rubs, regular rate and rhythm. CHEST: Wound VAC to the area of the left breast. ABDOMEN: Soft, nontender, bowel sounds positive, no hernias, no peritonitis. EXTREMITIES: Mild bilateral pedal edema. No cyanosis, full range of motion of all the joints without pain or difficulty, no signs for acute trauma. NEUROLOGIC: Oriented x 3, no acute motor or sensory deficits, no focal weakness. SKIN: No rash, no jaundice, no diaphoresis. Medical Decision & Procedures ER Provider Diagnostic Interpretation: Radiology results as stated below per my review and radiologist interpretation: CHEST ONE VIEW PORTABLE HISTORY: EVALUATE RESPIRATORY DISTRESS.DYSPNEA COMPARISON: Chest 04/17/2017. FINDINGS: The pulmonary edema and small bilateral pleural effusions have improved. No pneumothorax. There are post sternotomy changes. The heart is mildly enlarged. Bibasilar densities favor the layering pleural fluid. Left subclavian Port-A-Cath is again noted. IMPRESSION: Improving pulmonary edema and small bilateral pleural effusions. Electronically signed by: Jai Blair M.D. 04/22/2017 4:46 PM Dictated Date/Time: 04/22/2017 4:45 PM Laboratory Results 04/22/17 16:43 Red Blood Count 3.65, Mean Corpuscular Volume 88.5, Mean Corpuscular Hemoglobin 28.2, Mean Corpuscular Hemoglobin Concent 31.9, Mean Platelet Volume 9.3, Neutrophils (%) (Auto) 65.6, Lymphocytes (%) (Auto) 14.8, Monocytes (%) (Auto) 13.3, Eosinophils (%) (Auto) 4.9, Basophils (%) (Auto) 0.9, Neutrophils # (Auto ) 4.31, Lymphocytes # (Auto) 0.97, Monocytes # (Auto) 0.87, Eosinophils # (Auto ) 0.32, Basophils # (Auto) 0.06 04/22/17 16:43 04/22/17 18:13 Test 04/22/17 16:43 04/22/17 18:13 04/22/17 18:19 White Blood Count 6.56 K/uL (4.8-10.8) Red Blood Count 3.65 M/uL (4.2-5.4) Hemoglobin 10.3 g/dL (12.0-16.0) Hematocrit 32.3 % (37-47) Mean Corpuscular Volume 88.5 fL (80-100) Mean Corpuscular Hemoglobin 28.2 pg (25-34) Mean Corpuscular Hemoglobin Concent 31.9 g/dl (32-36) Platelet Count 271 K/uL (130-400) Mean Platelet Volume 9.3 fL (7.4-10.4) Neutrophils (%) (Auto) 65.6 % Lymphocytes (%) (Auto) 14.8 % Monocytes (%) (Auto) 13.3 % Eosinophils (%) (Auto) 4.9 % Basophils (%) (Auto) 0.9 % Neutrophils # (Auto) 4.31 K/uL (1.4-6.5) Lymphocytes # (Auto) 0.97 K/uL (1.2-3.4) Monocytes # (Auto) 0.87 K/uL (0.11-0.59) Eosinophils # (Auto) 0.32 K/uL (0-0.5) Basophils # (Auto) 0.06 K/uL (0-0.2) RDW Standard Deviation 51.3 fL (36.4-46.3) RDW Coefficient of Variation 15.9 % (11.5-14.5) Immature Granulocyte % (Auto) 0.5 % Immature Granulocyte # (Auto) 0.03 K/uL (0.00-0.02) Prothrombin Time 32.1 SECONDS (9.0-12.0) Prothromb Time International Ratio 3.1 (0.9-1.1) Activated Partial Thromboplast Time 31.5 SECONDS (21.0-31.0) Partial Thromboplastin Ratio 1.2 Anion Gap 6.0 mmol/L (3-11) Est Creatinine Clear Calc Drug Dose 23.9 ml/min Estimated GFR () 32.9 Estimated GFR (Non- 28.4 BUN/Creatinine Ratio 17.8 (10-20) Calcium Level 9.0 mg/dl (8.5-10.1) Total Bilirubin 0.6 mg/dl (0.2-1) Alanine Aminotransferase (ALT/SGPT) 27 U/L (12-78) Alkaline Phosphatase 81 U/L (45-117) Troponin I 0.018 ng/ml (0-0.045) Pro-B-Type Natriuretic Peptide > 23223 pg/ml (0-1800) Total Protein 7.9 gm/dl (6.4-8.2) Albumin 2.7 gm/dl (3.4-5.0) Globulin 5.2 gm/dl (2.5-4.0) Albumin/Globulin Ratio 0.5 (0.9-2) Magnesium Level 2.1 mg/dl (1.8-2.4) Aspartate Amino Transf (AST/SGOT) 28 U/L (15-37) Urine Color YELLOW Urine Appearance CLEAR (CLEAR) Urine pH 8.0 (4.5-7.5) Urine Specific Trade 1.014 (1.000-1.030) Urine Protein 2+ (NEG) Urine Glucose (UA) NEG (NEG) Urine Ketones NEG (NEG) Urine Occult Blood 2+ (NEG) Urine Nitrite NEG (NEG) Urine Bilirubin NEG (NEG) Urine Urobilinogen NEG (NEG) Urine Leukocyte Esterase NEG (NEG) Urine WBC (Auto) 1-5 /hpf (0-5) Urine RBC (Auto) >30 /hpf (0-4) Urine Hyaline Casts (Auto) 1-5 /lpf (0-5) Urine Epithelial Cells (Auto) 10-20 /lpf (0-5) Urine Bacteria (Auto) NEG (NEG) Laboratory results reviewed by me. ECG Indication: SOB/dyspnea Rate (beats per minute): 83 Rhythm: normal sinus Findings: T-wave inversion (anterior and lateral), no ectopy, other (No evidence for an acute NV.) Comparison ECG Date: 04/17/17 Change: T-waves are new and replaced flat T-waves. Patient's EKG has been interpreted by me. ED Course 1554: The patient was evaluated in room B10. A complete history and physical exam was performed. 1839: Reevaluated the patient. Discussed results and discharge instructions: she verbalized understanding and agreement. The patient is ready for discharge. Medical Decision Differential diagnoses include: CHF, electrolyte abnormality, renal failure, pneumonia, cardiac ischemia, UTI, fluid overload. There is no leukocytosis. The patient is anemic but this is chronic. No significant electrolyte abnormality, no hepatitis. There was some renal insufficiency which appears baseline. BNP is quite elevated however, looking back at previous testing, this has been the case in the past. Chest x-ray does show some CHF but the film is markedly improved from a recent chest x-ray. EKG shows a sinus rhythm with some T-wave inversions in the anterior lateral leads. These inversions are new compared to previous EKGs. I suspect the EKG changes are consistent with the recent troponin elevations/cardiac strain and heart failure for which she stayed in the hospital. Cardiac troponin is not elevated, in fact, the value is decreasing when compared to her recent hospitalization. INR is elevated consistent with her Coumadin use. The patient had already taken Lasix prior to arrival. She has diuresed from this medication. She is not hypoxic, she is not toxic, she is not in distress. The patient was reassured by her testing. She would like to be discharged home. I do think this is reasonable. She will continue her diuretic and return here for any worsening breathing or any chest pain/fever. Of note, the patient did provide a urine sample before discharge. This shows hematuria, this has been noted in the past, today's urine did not show any evidence for infection. Medication Reconcilliation Current Medication List: was personally reviewed by me Blood Pressure Screening Patient's blood pressure: Elevated blood pressure Blood pressure disposition: Referred to PCP Impression Primary Impression: SOB (shortness of breath) Additional Impression: CHF (congestive heart failure) Scribe Attestation The scribe's documentation has been prepared under my direction and personally reviewed by me in its entirety. I confirm that the note above accurately reflects all work, treatment, procedures, and medical decision making performed by me. Departure Information Dispostion Home / Self-Care Referrals Lucian Noe M.D. (PCP) Forms HOME CARE DOCUMENTATION FORM, IMPORTANT VISIT INFORMATION Patient Instructions My [facility] Additional Instructions continue the lasix as prescibed see claudia kelley for a recheck next week return for worseing breathing or symptoms Problem Qualifiers
--- NOTE | 2017-04-22 16:47 | DIAGNOSTIC IMAGING REPORT ---
CHEST ONE VIEW PORTABLE HISTORY: EVALUATE RESPIRATORY DISTRESS.DYSPNEA COMPARISON: Chest 04/17/2017. FINDINGS: The pulmonary edema and small bilateral pleural effusions have improved. No pneumothorax. There are post sternotomy changes. The heart is mildly enlarged. Bibasilar densities favor the layering pleural fluid. Left subclavian Port-A-Cath is again noted. IMPRESSION: Improving pulmonary edema and small bilateral pleural effusions. Electronically signed by: Jai Blair M.D. 04/22/2017 4:46 PM Dictated Date/Time: 04/22/2017 4:45 PM
[2017-04-22 17:08] LABS: BASO % 0.9 %; BASO ABS # 0.06 K/uL (0-0.2); EOS % 4.9 %; EOS ABS # 0.32 K/uL (0-0.5); HEMATOCRIT 32.3 % (37-47); HEMOGLOBIN 10.3 g/dL (12.0-16.0); IG# 0.03 K/uL (0.00-0.02); LYMPH % 14.8 %; LYMPH ABS # 0.97 K/uL (1.2-3.4); MEAN CELL VOLUME 88.5 fL (80-100); MEAN CORPUSCULAR HEMOGLOBIN 28.2 pg (25-34); MEAN CORPUSCULAR HGB CONC 31.9 g/dl (32-36); MEAN PLATELET VOLUME 9.3 fL (7.4-10.4); MONO % 13.3 %; MONO ABS # 0.87 K/uL (0.11-0.59); NEUT % 65.6 %; NEUT ABS # 4.31 K/uL (1.4-6.5); PLATELET COUNT 271 K/uL (130-400); RED CELL DISTRIBUTION WIDTH CV 15.9 % (11.5-14.5); RED CELL DISTRIBUTION WIDTH SD 51.3 fL (36.4-46.3); WHITE BLOOD COUNT 6.56 K/uL (4.8-10.8)
[2017-04-22 17:17] LABS: INR 3.1 (0.9-1.1); PTT PATIENT 31.5 SECONDS (21.0-31.0)
[2017-04-22] MEDS ORDERED: LACT1TAB4 PO (17:25)
[2017-04-22] MEDS ORDERED: FRS/40 PO (17:28)
[2017-04-22 17:29] LABS: ALBUMIN 2.7 gm/dl (3.4-5.0); ALT/SGPT 27 U/L (12-78); BLOOD UREA NITROGEN 30 mg/dl (7-18); CARBON DIOXIDE 30 mmol/L (21-32); CREATININE 1.69 mg/dl (0.60-1.20); GLUCOSE 82 mg/dl (70-99); SODIUM 136 mmol/L (136-145)
[2017-04-22 17:37] LABS: ALKALINE PHOSPHATASE 81 U/L (45-117); TOTAL PROTEIN 7.9 gm/dl (6.4-8.2)
[2017-04-22 18:05] VITALS: BP 156/89; PULSE 93; TEMP 36.8; O2SAT 97
[2017-04-22 18:38] LABS: POTASSIUM 3.6 mmol/L (3.5-5.1)
== END 2017-04-22 19:32 | disposition home or self-care (01) ==
LOC: C.EDB 15:31
DX: I11.0 Hypertensive heart disease with heart failure (principal); I50.9 Heart failure, unspecified; Z86.711 Personal history of pulmonary embolism; Z79.01 Long term (current) use of anticoagulants; D64.9 Anemia, unspecified; J45.909 Unspecified asthma, uncomplicated; I25.2 Old myocardial infarction; Z96.659 Presence of unspecified artificial knee joint; Z80.9 Family history of malignant neoplasm, unspecified; Z83.3 Family history of diabetes mellitus; Z82.49 Family history of ischemic heart disease and other diseases of the circulatory system; Z87.891 Personal history of nicotine dependence; Z79.82 Long term (current) use of aspirin; Z79.899 Other long term (current) drug therapy

== ENCOUNTER 2017-04-25 21:38 | Observation (INO) | payer MEDICARE, OTHER ==
[~2017-04-25] VITALS: Ht 152.4 cm; Wt 70.1 kg
--- NOTE | 2017-04-25 22:33 | EMERGENCY ROOM VISIT NOTE ---
ED Visit Note First contact with patient: 22:16 I did evaluate and examine this patient myself. I did guide management for the patient. I agree with the APC's assessment as discussed. Please see the APC's dictation for further details. I did independently review the blood work. She has significant bleeding from her wound VAC and also surrounding the wound VAC. INR was 4.3. She was given vitamin K IV. Surgery was consulted.
[2017-04-25] MEDS ORDERED: PHYTONADIONE INJ 2 MG in SODIUM CHLORIDE 0.9% 50ML 50 ML IV ONE (23:15)
[2017-04-25 23:34] LABS: ISTAT CREATININE 1.8 mg/dl (0.6-1.3); ISTAT IONIZED CALCIUM 1.13 mmol/l (1.12-1.32); ISTAT POTASSIUM 3.5 mEq/L (3.3-5.0)
[2017-04-25 23:57] LABS: BASO % 0.7 %; BASO ABS # 0.04 K/uL (0-0.2); EOS % 4.4 %; EOS ABS # 0.26 K/uL (0-0.5); HEMATOCRIT 34.2 % (37-47); HEMOGLOBIN 10.8 g/dL (12.0-16.0); IG# 0.01 K/uL (0.00-0.02); LYMPH ABS # 0.89 K/uL (1.2-3.4); MEAN CELL VOLUME 88.6 fL (80-100); MEAN CORPUSCULAR HGB CONC 31.6 g/dl (32-36); MEAN PLATELET VOLUME 9.9 fL (7.4-10.4); MONO % 13.5 %; NEUT % 66.2 %; NEUT ABS # 3.94 K/uL (1.4-6.5); PLATELET COUNT 208 K/uL (130-400); RED CELL DISTRIBUTION WIDTH CV 15.7 % (11.5-14.5); RED CELL DISTRIBUTION WIDTH SD 50.1 fL (36.4-46.3); WHITE BLOOD COUNT 5.94 K/uL (4.8-10.8)
[2017-04-26] VITALS (7 sets, daily range): BP systolic 93–132; BP diastolic 60–77; PULSE 74–84; TEMP 36.5–36.8; O2SAT 96–99; Ht 152.4 cm; Wt 70.1 kg
[2017-04-26 00:08] LABS: INR 3.4 (0.9-1.1); PTT PATIENT 39.6 SECONDS (21.0-31.0)
[2017-04-26 00:19] LABS: ALBUMIN 2.7 gm/dl (3.4-5.0); CALCIUM 8.9 mg/dl (8.5-10.1); CREATININE 1.65 mg/dl (0.60-1.20); TOTAL PROTEIN 7.2 gm/dl (6.4-8.2)
[2017-04-26] MEDS ORDERED: CONSULT PHARMACY STA (00:32)
[2017-04-26 00:39] LABS: POTASSIUM 3.7 mmol/L (3.5-5.1)
[2017-04-26] MEDS ORDERED: ONDANSETRON INJ 2 MG/ML 2 ML VIAL IV PRN (00:45)
[2017-04-26] MEDS ORDERED: POLYETHYLENE (MIRALAX) 17 GM PACK PO PRN (00:45)
[2017-04-26] MEDS ORDERED: MAGNESIUM HYDROXIDE SUSP 30 ML UDC PO PRN (00:45)
[2017-04-26] MEDS ORDERED: ALBUTEROL HFA 8 GM INHALER INH PRN (00:45)
[2017-04-26] MEDS ORDERED: METOCLOPRAMIDE HCL 10 MG TAB PO PRN (00:45)
[2017-04-26] MEDS ORDERED: PROTHROMBIN COMP CONC- KCENTRA 1,500 UNIT in SYRINGE 0 ML IV SCH (00:45)
[2017-04-26] MEDS ORDERED: ACETAMINOPHEN 325 MG TAB PO PRN (00:45)
[2017-04-26] MEDS ORDERED: ALUMINUM/MAGNESIUM/SIMETH (MAALOX MAX) 30 ML UDC PO PRN (00:45)
--- NOTE | 2017-04-26 01:01 | History and Physical ---
History & Physical Date & Time of Service: Apr 26, 2017 at 00:43 Chief Complaint: Bleeding From Wound Vac Primary Care Physician: Lucian Noe M.D. History of Present Illness Source: patient, family 81 y/o F Hx breast CA, HTN, HPL, CKD III, multiple PEs - on Coumadin, chronic anemia, systolic CHF. 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 Her wound vac was changed today and began bleeding profusely. This continued for a few hours and she therefore presented to the ER. She does not report additional acute symptoms such as SOB, lighthead, CP or fevers. Her INR is currently 3.2. She is admitted for reversal of INR, trending of hemoglobin and evaluation by surgery. Past Medical/Surgical History 1) R breast lobular carcinoma - treated with chemo including Doxorubicin until 01/11 - radiation terminated 03/14. Takes Anastrozole only at present. 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 - wound vac in place x 3 months - thought to be source of septic shock admission 04/14 6) Chronic anemia - baseline Hb ranges 9-11 7) GERD 8) HTN 9) HPL Family History Cancer Diabetes mellitus Myocardial infarction Social History Smoking Status: Never Smoker Drug Use: none Marital Status: Housing status: lives alone Occupational Status: retired Immunizations History of Influenza Vaccine: N/A History of Tetanus Vaccine?: Yes History of Pneumococcal: Yes History of Hepatitis B Vaccine: No Multi-Drug Resistant Organisms History of MDRO: No Allergies Coded Allergies: Nitroglycerin (Verified Allergy, Intermediate, BP Decreases, HR Increases , 04/22/17) REACTION WITH SUBLINGUAL PER RECORDS Home Medications Scheduled Albuterol Hfa (Ventolin Hfa), 1-2 PUFFS INH Q4-6H Anastrozole (Anastrozole), 1 MG PO DAILY Aspirin (Aspirin), 81 MG PO QAM Calcium Carbonate-Vitamin D (Calcium + D), 1 TAB PO BID Doxycycline Hyclate (Doxycycline Hyclate), 100 MG PO BID Fluticasone Propionate (Inhala (Flovent Diskus), 2 PUFFS INH BID Furosemide (Lasix), 40 MG PO DAILY Lactobacillus (Floranex), 1 TAB PO TIDM Metoprolol Succinate (Metoprolol Succinate ER), 50 MG PO TID Pantoprazole (Protonix), 40 MG PO QAM Polyethylene Glycol 3350 (Miralax), 17 GM PO prn Ranitidine (Zantac), 150 MG PO HS Rosuvastatin Calcium (Crestor), 40 MG PO HS Warfarin Sodium (Coumadin), 1 MG PO 4XWK Warfarin Sodium (Coumadin), 2 MG PO 3XWK Scheduled PRN Metoclopramide (Reglan), 5 MG PO QPM PRN for Dyspepsia Review of Systems Constitutional: No fever, No chills, No sweats Eyes: No worsening of vision ENT: No hearing loss, No unusual epistaxis, No nasal symptoms Respiratory: No cough, No sputum, No wheezing Cardiovascular: No chest pain, No PND Abdomen: No pain, No nausea, No vomiting Musculoskeletal: No joint pain Genitourinary - Female: No dysuria, No urinary frequency, No urinary urgency Neurologic: No memory loss, No paralysis, No weakness Psychiatric: No depression symptoms Endocrine: No fatigue Hematologic / Lymphatic: + abnormal bleeding/bruising Integumentary: No rash Allergic / Immunologic: No environmental allergies Physical Exam Vital Signs Date Time Temp Pulse Resp B/P (MAP) Pulse Ox O2 Delivery O2 Flow Rate FiO2 04/26/17 00:18 77 18 103/71 95 Room Air 04/25/17 23:44 78 20 117/67 97 Room Air 04/25/17 23:31 78 18 128/66 98 Room Air 04/25/17 22:02 36.8 87 20 119/66 97 Room Air General Appearance: + pertinent finding (PLeasant, elderly female in no distress) Head: normocephalic, atraumatic Eyes: normal inspection, PERRL ENT: normal ENT inspection, pharynx normal Neck: supple, no JVD Respiratory/Chest: chest non-tender, lungs clear, + pertinent finding (Large chest wound - pooling of blood and active leaking from vac is drenching her gown on the L) Cardiovascular: regular rate, rhythm, no edema, no gallop, + systolic murmur Abdomen/GI: normal bowel sounds, non tender, soft Back: normal inspection, no CVA tenderness Extremities/Musculoskelatal: normal inspection, no calf tenderness, normal capillary refill, no pedal edema, normal range of motion Neurologic/Psych: hide puller II-XII nml as tested, no motor/sensory deficits, alert Skin: + pertinent finding (Chest wound as above) Diagnostics Laboratory Results Results Past 24 Hours Test 04/25/17 22:40 04/25/17 23:13 04/25/17 23:21 Range/Units Bedside Prothrombin Time INR 4.3 0.9-1.1 White Blood Count 5.94 4.8-10.8 K/uL Red Blood Count 3.86 4.2-5.4 M/uL Hemoglobin 10.8 12.0-16.0 g/dL Hematocrit 34.2 37-47 % Mean Corpuscular Volume 88.6 80-100 fL Mean Corpuscular Hemoglobin 28.0 25-34 pg Mean Corpuscular Hemoglobin Concent 31.6 32-36 g/dl Platelet Count 208 130-400 K/uL Mean Platelet Volume 9.9 7.4-10.4 fL Neutrophils (%) (Auto) 66.2 % Lymphocytes (%) (Auto) 15.0 % Monocytes (%) (Auto) 13.5 % Eosinophils (%) (Auto) 4.4 % Basophils (%) (Auto) 0.7 % Neutrophils # (Auto) 3.94 1.4-6.5 K/uL Lymphocytes # (Auto) 0.89 1.2-3.4 K/uL Monocytes # (Auto) 0.80 0.11-0.59 K/uL Eosinophils # (Auto) 0.26 0-0.5 K/uL Basophils # (Auto) 0.04 0-0.2 K/uL RDW Standard Deviation 50.1 36.4-46.3 fL RDW Coefficient of Variation 15.7 11.5-14.5 % Immature Granulocyte % (Auto) 0.2 % Immature Granulocyte # (Auto) 0.01 0.00-0.02 K/uL Prothrombin Time 35.2 9.0-12.0 SECONDS Prothromb Time International Ratio 3.4 0.9-1.1 Activated Partial Thromboplast Time 39.6 21.0-31.0 SECONDS Partial Thromboplastin Ratio 1.5 Sodium Level 140 136-145 mmol/L Potassium Level 3.7 3.5-5.1 mmol/L Chloride Level 101 98-107 mmol/L Carbon Dioxide Level 27 21-32 mmol/L Anion Gap 12.0 17.0 16-25 mmol/L Blood Urea Nitrogen 28 7-18 mg/dl Creatinine 1.65 0.60-1.20 mg/dl Est Creatinine Clear Calc Drug Dose 24.3 ml/min Estimated GFR () 33.9 Estimated GFR (Non- 29.2 BUN/Creatinine Ratio 17.2 10-20 Random Glucose 91 70-99 mg/dl Calcium Level 8.9 8.5-10.1 mg/dl Total Bilirubin 0.5 0.2-1 mg/dl Aspartate Amino Transf (AST/SGOT) 29 15-37 U/L Alanine Aminotransferase (ALT/SGPT) 24 12-78 U/L Alkaline Phosphatase 72 45-117 U/L Total Protein 7.2 6.4-8.2 gm/dl Albumin 2.7 3.4-5.0 gm/dl Globulin 4.5 2.5-4.0 gm/dl Albumin/Globulin Ratio 0.6 0.9-2 Chemistry Specimen Hemolysis Bedside Hemoglobin 10.2 12.0-16.0 g/dl Bedside Hematocrit 30 37-47 % Bedside Sodium 142 135-144 mEq/L Bedside Potassium 3.5 3.3-5.0 mEq/L Bedside Chloride 99 101-112 mEq/L Bedside Total CO2 30 24-31 mEq/l Bedside Blood Urea Nitrogen 31 7-18 mg/dl Bedside Creatinine 1.8 0.6-1.3 mg/dl Bedside Glucose (other) 97 70-99 mg/dl Bedside Ionized Calcium ([place]) 1.13 1.12-1.32 mmol/l Impression Assessment and Plan 81 y/o F Hx breast CA, HTN, HPL, CKD III, multiple PEs - on Coumadin, chronic anemia, systolic CHF. 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 Her wound vac was changed today and began bleeding profusely. This continued for a few hours and she therefore presented to the ER. She does not report additional acute symptoms such as SOB, lighthead, CP or fevers. Her INR is currently 3.2. 1) Bleeding wound - Received Kcentra due to profuse bleeding and had received 10 vit K as well. We will trend her Hb and have consulted surgery. Hb is currently at baseline. 2) Systolic CHF - likely chronic - euvolemic on current Lasix dose which we will continue in addition to her B timothy - would consider addition of Aldactone if her EF does not show improvement going forward. She may not tolerate an BRIAN due to labile renal function. 3) CKD - creat is at baseline 4) HTN - Cont Metoprolol, Lasix 5) Multiple PEs - If bleeding is controlled would consider bridging therapy until INR is therapeutic. 6) HPL - cont Statin Full code - anticoagulation held - SCDs applied Total time for this admit including review of labs, meds, imaging, records - discussion with pt, family and ER attending - 38 min Level of Care Med/Surg Resuscitation Status FULL RESUSCITATION VTE Prophylaxis VTE Risk Assessment Done? Y/N: Yes Risk Level: High Given or contraindicated: SCD's
[2017-04-26] MEDS ORDERED: IV FLUIDS COMPLETED PRN (02:30)
[2017-04-26] MEDS: CALCIUM 600MG + VIT D 400 IU TAB PO SCH ×2 (08:58→20:18)
[2017-04-26] MEDS: METOPROLOL SUCC 50MG EXT REL TAB PO SCH ×3 (08:58→20:18)
[2017-04-26] MEDS: LACTOBACILLUS ACIDOPHILUS (FLORANEX) TAB PO SCH ×3 (08:58→16:42)
[2017-04-26] MEDS: FUROSEMIDE 40 MG TAB PO SCH (08:59)
[2017-04-26] MEDS: DOXYCYCLINE HYCLATE 100 MG CAP PO SCH ×2 (08:59→20:18)
[2017-04-26] MEDS: ASPIRIN 81 MG ECTAB PO SCH (08:59)
[2017-04-26] MEDS: PANTOprazole SOD 40 MG TAB PO SCH (08:59)
[2017-04-26] MEDS: ANASTROZOLE 1 MG TAB PO SCH (09:01)
--- NOTE | 2017-04-26 10:58 | Surgery Consultation ---
Consultation Date of Consultation: Apr 26, 2017. Attending Physician: Paulo Wilson MD, PhD History of Present Illness 81 y/o F Hx breast CA, HTN, HPL, CKD III, multiple PEs - on Coumadin, chronic anemia, systolic CHF. 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 Her wound vac was changed today and began bleeding profusely. This continued for a few hours and she therefore presented to the ER. She does not report additional acute symptoms such as SOB, lighthead, CP or fevers. Her INR is currently 3.2. She is admitted for reversal of INR, trending of hemoglobin and evaluation by surgery. I reviewed pt's H/P with pt, no active bleeding now, pt denies fever, Past Medical/Surgical History Medical Problems: (1) Acute renal failure Status: Acute (2) Congestive heart failure (CHF) Status: Acute (3) Elevated LFTs Status: Acute (4) Hematuria Status: Acute (5) Orthostatic hypertension Status: Acute (6) Sepsis Status: Acute (7) Sepsis affecting skin Status: Acute (8) Septic shock Status: Acute (9) SOB (shortness of breath) Status: Acute (10) Supratherapeutic INR Status: Acute (11) Supratherapeutic INR Status: Acute Family History Cancer Diabetes mellitus Myocardial infarction Social History Smoking Status: Former Smoker Smokeless Tobacco Use: No Alcohol Use: none Drug Use: none Marital Status: Housing Status: lives alone Occupation Status: retired Allergies Coded Allergies: Nitroglycerin (Verified Allergy, Intermediate, BP Decreases, HR Increases , 04/22/17) REACTION WITH SUBLINGUAL PER RECORDS Home Medications Scheduled Albuterol Hfa (Ventolin Hfa), 1-2 PUFFS INH Q4-6H Anastrozole (Anastrozole), 1 MG PO DAILY Aspirin (Aspirin), 81 MG PO QAM Calcium Carbonate-Vitamin D (Calcium + D), 1 TAB PO BID Doxycycline Hyclate (Doxycycline Hyclate), 100 MG PO BID Fluticasone Propionate (Inhala (Flovent Diskus), 2 PUFFS INH BID Furosemide (Lasix), 40 MG PO DAILY Lactobacillus (Floranex), 1 TAB PO TIDM Metoprolol Succinate (Metoprolol Succinate ER), 50 MG PO TID Pantoprazole (Protonix), 40 MG PO QAM Polyethylene Glycol 3350 (Miralax), 17 GM PO prn Ranitidine (Zantac), 150 MG PO HS Rosuvastatin Calcium (Crestor), 40 MG PO HS Warfarin Sodium (Coumadin), 1 MG PO [id number] Warfarin Sodium (Coumadin), 2 MG PO [id number] Scheduled PRN Metoclopramide (Reglan), 5 MG PO QPM PRN for Dyspepsia Current Inpatient Medications Current Inpatient Medications Medications (Trade) Dose Ordered Sig/Sendy Route Start Time Stop Time Status Last Admin Dose Admin Albuterol (Ventolin Hfa Inhaler) 2 puffs Q4H PRN INH 04/26/17 00:45 05/26/17 00:44 Anastrozole (Arimidex Tab) 1 mg DAILY PO 04/26/17 08:00 05/26/17 08:59 04/26/17 09:01 1 MG Aspirin (Ecotrin Tab) 81 mg QAM PO 04/26/17 08:00 05/26/17 08:59 04/26/17 08:59 81 MG Furosemide (Lasix Tab) 40 mg DAILY PO 04/26/17 08:00 05/26/17 08:59 04/26/17 08:59 40 MG Lactobacillus Acidophilus (Floranex Tab) 1 tab TIDM PO 04/26/17 08:00 05/26/17 07:59 04/26/17 08:58 1 TAB Metoclopramide HCl (Reglan Tab) 5 mg QPM PRN PO 04/26/17 00:45 05/26/17 00:44 Metoprolol Succinate (Toprol Xl Tab) 50 mg TID PO 04/26/17 08:00 05/26/17 08:59 04/26/17 08:58 50 MG Pantoprazole Sodium (Protonix Tab) 40 mg QAM PO 04/26/17 08:00 05/26/17 08:59 04/26/17 08:59 40 MG Rosuvastatin Calcium (Crestor Tab) 40 mg HS PO 04/26/17 21:00 05/26/17 20:59 Calcium/Vitamin D (Caltrate Plus Tab) 1 tab BID PO 04/26/17 08:00 05/26/17 08:59 04/26/17 08:58 1 TAB Doxycycline Hyclate (Vibramycin Cap) 100 mg BID PO 04/26/17 08:00 05/06/17 07:59 04/26/17 08:59 100 MG Miscellaneous Information (Order Awaiting Action) 1 ea QS N/A 04/26/17 16:00 05/26/17 15:59 Ranitidine HCl (zANTac TAB) 150 mg HS PO 04/26/17 21:00 05/26/17 20:59 Acetaminophen (Tylenol Tab) 650 mg Q4H PRN PO 04/26/17 00:45 05/26/17 00:44 Al Hydrox/Mg Hydrox/Simethicone (Maalox Max Susp) 15 ml Q4H PRN PO 04/26/17 00:45 05/26/17 00:44 Magnesium Hydroxide (Milk Of Magnesia Susp) 30 ml Q6H PRN PO 04/26/17 00:45 05/26/17 00:44 Polyethylene (Miralax Powder Packet) 17 gm DAILY PRN PO 04/26/17 00:45 05/26/17 00:44 Ondansetron HCl (Zofran Inj) 4 mg Q6H PRN IV 04/26/17 00:45 05/26/17 00:44 Miscellaneous (Iv Fluids Completed) 1 ea PRN PRN N/A 04/26/17 02:30 04/26/18 02:29 Review of Systems Constitutional: No fever, No chills, No sweats, No weight loss, No weakness, No fatigue, No problem reported Eyes: No worsening of vision, No eye pain, No redness, No discharge, No diplopia, No problem reported ENT: No hearing loss, No unusual epistaxis, No nasal symptoms, No sore throat, No tinnitus, No dental problems, No trouble swallowing, No problem reported Respiratory: No cough, No sputum, No wheezing, No shortness of breath, No dyspnea on exertion, No dyspnea at rest, No hemoptysis, No problem reported Cardiovascular: + problem reported (CABG, PE), No chest pain, No orthopnea, No PND, No edema, No claudication, No palpitations Abdomen: No pain, No nausea, No vomiting, No diarrhea, No constipation, No GI bleeding, No problem reported Musculoskeletal: No joint pain, No muscle pain, No swelling, No calf pain, No problem reported Neurologic: No memory loss, No paralysis, No weakness, No numbness/tingling, No vertigo, No balance problems, No problem reported Psychiatric: No depression symptoms, No anhedonism, No anxiety, No insomnia, No substance abuse, No problem reported Endocrine: No fatigue, No excessive thirst, No excessive urination, No problem reported Hematologic / Lymphatic: No abnormal bleeding/bruising, No clotting problems, No swollen lymph nodes, No night sweats, No problem reported Integumentary: No rash, No itch, No new/changing skin lesions, No color change , No bleeding, No problem reported Physical Exam Date Time Temp Pulse Resp B/P (MAP) Pulse Ox O2 Delivery O2 Flow Rate FiO2 04/26/17 08:00 Room Air 04/26/17 07:10 36.5 84 18 127/73 (91) 96 Room Air 04/26/17 02:00 Room Air 04/26/17 01:30 36.8 80 18 132/77 98 Room Air 04/26/17 01:12 78 20 115/64 96 Room Air 04/26/17 00:18 77 18 103/71 95 Room Air 04/25/17 23:44 78 20 117/67 97 Room Air 04/25/17 23:34 77 04/25/17 23:31 78 18 128/66 98 Room Air 04/25/17 22:02 36.8 87 20 119/66 97 Room Air General Appearance: WD/WN, no apparent distress Head: normocephalic Eyes: normal inspection ENT: normal ENT inspection Neck: supple, no JVD Respiratory/Chest: chest non-tender Cardiovascular: regular rate, rhythm, no edema, no gallop, no JVD Abdomen/GI: normal bowel sounds, non tender, soft Extremities/Musculoskelatal: normal inspection, no calf tenderness, normal capillary refill Neurologic/Psych: no motor/sensory deficits, alert, normal mood/affect Skin: normal color, warm/dry, no rash (open , chronic wound on left chest wall , size [id number], some oozing, ) Laboratory Results Last 24 Hours Test 04/25/17 22:40 04/25/17 23:13 04/25/17 23:21 04/26/17 03:46 Bedside Prothrombin Time INR 4.3 White Blood Count 5.94 K/uL Red Blood Count 3.86 M/uL Hemoglobin 10.8 g/dL 8.4 g/dL Hematocrit 34.2 % Mean Corpuscular Volume 88.6 fL Mean Corpuscular Hemoglobin 28.0 pg Mean Corpuscular Hemoglobin Concent 31.6 g/dl Platelet Count 208 K/uL Mean Platelet Volume 9.9 fL Neutrophils (%) (Auto) 66.2 % Lymphocytes (%) (Auto) 15.0 % Monocytes (%) (Auto) 13.5 % Eosinophils (%) (Auto) 4.4 % Basophils (%) (Auto) 0.7 % Neutrophils # (Auto) 3.94 K/uL Lymphocytes # (Auto) 0.89 K/uL Monocytes # (Auto) 0.80 K/uL Eosinophils # (Auto) 0.26 K/uL Basophils # (Auto) 0.04 K/uL RDW Standard Deviation 50.1 fL RDW Coefficient of Variation 15.7 % Immature Granulocyte % (Auto) 0.2 % Immature Granulocyte # (Auto) 0.01 K/uL Prothrombin Time 35.2 SECONDS Prothromb Time International Ratio 3.4 Activated Partial Thromboplast Time 39.6 SECONDS Partial Thromboplastin Ratio 1.5 Sodium Level 140 mmol/L Potassium Level 3.7 mmol/L Chloride Level 101 mmol/L Carbon Dioxide Level 27 mmol/L Anion Gap 12.0 mmol/L 17.0 mmol/L Blood Urea Nitrogen 28 mg/dl Creatinine 1.65 mg/dl Est Creatinine Clear Calc Drug Dose 24.3 ml/min Estimated GFR () 33.9 Estimated GFR (Non- 29.2 BUN/Creatinine Ratio 17.2 Random Glucose 91 mg/dl Calcium Level 8.9 mg/dl Total Bilirubin 0.5 mg/dl Aspartate Amino Transf (AST/SGOT) 29 U/L Alanine Aminotransferase (ALT/SGPT) 24 U/L Alkaline Phosphatase 72 U/L Total Protein 7.2 gm/dl Albumin 2.7 gm/dl Globulin 4.5 gm/dl Albumin/Globulin Ratio 0.6 Chemistry Specimen Hemolysis Bedside Hemoglobin 10.2 g/dl Bedside Hematocrit 30 % Bedside Sodium 142 mEq/L Bedside Potassium 3.5 mEq/L Bedside Chloride 99 mEq/L Bedside Total CO2 30 mEq/l Bedside Blood Urea Nitrogen 31 mg/dl Bedside Creatinine 1.8 mg/dl Bedside Glucose (other) 97 mg/dl Bedside Ionized Calcium (Humaira) 1.13 mmol/l Test 04/26/17 07:42 Hemoglobin 8.2 g/dL Assessment & Plan IMP: wound bleeding I recommend, keep INR about 2, stop wound vac now, packing the wound with 4x4 gouze, for 2 days, then restart wound vac, will F/U Tanks,
--- NOTE | 2017-04-26 11:11 | Progress Note ---
Subjective Date of Service: Apr 26, 2017. 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 chest wall is on the dressing now, no more bleeding Problem List Medical Problems: (1) Acute renal failure Status: Acute (2) Congestive heart failure (CHF) Status: Acute (3) Elevated LFTs Status: Acute (4) Hematuria Status: Acute (5) Orthostatic hypertension Status: Acute (6) Sepsis Status: Acute (7) Sepsis affecting skin Status: Acute (8) Septic shock Status: Acute (9) SOB (shortness of breath) Status: Acute (10) Supratherapeutic INR Status: Acute (11) Supratherapeutic INR Status: Acute Review of Systems Constitutional: No fever, No chills, No sweats, No weight loss, No weakness, No fatigue, No problem reported Eyes: No worsening of vision, No eye pain, No redness, No discharge, No diplopia ENT: No hearing loss, No unusual epistaxis, No nasal symptoms, No sore throat, No tinnitus, No dental problems, No trouble swallowing Respiratory: No cough, No sputum, No wheezing, No shortness of breath, No dyspnea on exertion, No dyspnea at rest, No hemoptysis Cardiac: No chest pain, No orthopnea, No PND, No edema, No claudication, No palpitations Abdomen: No pain, No nausea, No vomiting, No diarrhea, No constipation Musculoskeletal: No joint pain, No muscle pain, No swelling, No calf pain Female : No dysuria, No urinary frequency, No hematuria, No incontinence, No abnormal vaginal bleeding, No vaginal discharge Neurologic: No memory loss, No paralysis, No weakness, No numbness/tingling, No vertigo, No balance problems Psychiatric: No depression symptoms, No anhedonism, No anxiety, No insomnia, No substance abuse Heme: No abnormal bleeding/bruising, No clotting problems, No swollen lymph nodes, No night sweats Endo: No fatigue, No excessive thirst, No excessive urination Skin: No rash, No itch, No new/changing skin lesions, No color change, No bleeding Objective Vital Signs Date Time Temp Pulse Resp B/P (MAP) Pulse Ox O2 Delivery O2 Flow Rate FiO2 04/26/17 08:00 Room Air 04/26/17 07:10 36.5 84 18 127/73 (91) 96 Room Air 04/26/17 02:00 Room Air 04/26/17 01:30 36.8 80 18 132/77 98 Room Air 04/26/17 01:12 78 20 115/64 96 Room Air 04/26/17 00:18 77 18 103/71 95 Room Air 04/25/17 23:44 78 20 117/67 97 Room Air 04/25/17 23:34 77 04/25/17 23:31 78 18 128/66 98 Room Air 04/25/17 22:02 36.8 87 20 119/66 97 Room Air Physical Exam General Appearance: WD/WN, no apparent distress Eyes: normal inspection, PERRL, EOMI, sclerae normal ENT: normal ENT inspection, hearing grossly normal, pharynx normal Neck: supple, no adenopathy, thyroid normal, no JVD, no carotid bruits, trachea midline Respiratory/Chest: chest non-tender, normal breath sounds, no respiratory distress, no accessory muscle use, + decreased breath sounds, + pertinent finding (left anterior chest wall, in dressing, local wound no bleeding, mild tender surrounding the wound , no drainage) Cardiovascular: regular rate, rhythm, no edema, no gallop, no JVD, no murmur Abdomen: normal bowel sounds, non tender, soft, no organomegaly, no pulsatile mass Extremities: normal range of motion, non-tender, normal inspection, no pedal edema, no calf tenderness, normal capillary refill, pelvis stable 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, no motor/sensory deficits, alert, normal mood/affect, oriented x 3 Skin: normal color, warm/dry, no rash Lymphatic: no adenopathy Laboratory Results Last 24 Hours Test 04/25/17 22:40 04/25/17 23:13 04/25/17 23:21 04/26/17 03:46 Bedside Prothrombin Time INR 4.3 White Blood Count 5.94 K/uL Red Blood Count 3.86 M/uL Hemoglobin 10.8 g/dL 8.4 g/dL Hematocrit 34.2 % Mean Corpuscular Volume 88.6 fL Mean Corpuscular Hemoglobin 28.0 pg Mean Corpuscular Hemoglobin Concent 31.6 g/dl Platelet Count 208 K/uL Mean Platelet Volume 9.9 fL Neutrophils (%) (Auto) 66.2 % Lymphocytes (%) (Auto) 15.0 % Monocytes (%) (Auto) 13.5 % Eosinophils (%) (Auto) 4.4 % Basophils (%) (Auto) 0.7 % Neutrophils # (Auto) 3.94 K/uL Lymphocytes # (Auto) 0.89 K/uL Monocytes # (Auto) 0.80 K/uL Eosinophils # (Auto) 0.26 K/uL Basophils # (Auto) 0.04 K/uL RDW Standard Deviation 50.1 fL RDW Coefficient of Variation 15.7 % Immature Granulocyte % (Auto) 0.2 % Immature Granulocyte # (Auto) 0.01 K/uL Prothrombin Time 35.2 SECONDS Prothromb Time International Ratio 3.4 Activated Partial Thromboplast Time 39.6 SECONDS Partial Thromboplastin Ratio 1.5 Sodium Level 140 mmol/L Potassium Level 3.7 mmol/L Chloride Level 101 mmol/L Carbon Dioxide Level 27 mmol/L Anion Gap 12.0 mmol/L 17.0 mmol/L Blood Urea Nitrogen 28 mg/dl Creatinine 1.65 mg/dl Est Creatinine Clear Calc Drug Dose 24.3 ml/min Estimated GFR () 33.9 Estimated GFR (Non- 29.2 BUN/Creatinine Ratio 17.2 Random Glucose 91 mg/dl Calcium Level 8.9 mg/dl Total Bilirubin 0.5 mg/dl Aspartate Amino Transf (AST/SGOT) 29 U/L Alanine Aminotransferase (ALT/SGPT) 24 U/L Alkaline Phosphatase 72 U/L Total Protein 7.2 gm/dl Albumin 2.7 gm/dl Globulin 4.5 gm/dl Albumin/Globulin Ratio 0.6 Chemistry Specimen Hemolysis Bedside Hemoglobin 10.2 g/dl Bedside Hematocrit 30 % Bedside Sodium 142 mEq/L Bedside Potassium 3.5 mEq/L Bedside Chloride 99 mEq/L Bedside Total CO2 30 mEq/l Bedside Blood Urea Nitrogen 31 mg/dl Bedside Creatinine 1.8 mg/dl Bedside Glucose (other) 97 mg/dl Bedside Ionized Calcium (Humaira) 1.13 mmol/l Test 04/26/17 07:42 Hemoglobin 8.2 g/dL Assessment and Plan 81 y/o F admitted on 04/25/2017 because of wound vac was changed and began bleeding profusely. Bleeding wound; Continue wound care, patient reported follow-up with Dr. Groves in wound care center and is planning to do "some tomorrow" We'll request Dr. 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 Has ordered today and tomorrow PT/INR, will continue hold Coumadin because of bleeding, and also because of possible need of local wound cleanup by Dr. Groves Possible acute blood loss anemia with HB 8.2 from 10.8 yesterday, we'll continue monitor Hx breast CA, HTN, HPL, CKD III, multiple PEs - on Coumadin, chronic anemia, systolic CHF The above condition stable, discussed with patient and family about holding Coumadin for now, he understand and agreed to taking the risks of worsening DVT and PE when holding Coumadin, Systolic CHF, chronic - euvolemic on current Lasix dose, will continue beta timothy Full code, SCDs applied Continued [facility] stay due to: multiple IV medications needed, home environment unsafe for pt Discharge planning: home
[2017-04-26 12:14] LABS: INR 1.1 (0.9-1.1)
[2017-04-26] MEDS: BOOST VANILLA PO SCH (20:15)
[2017-04-26] MEDS: ROSUVASTATIN CALCIUM 20 MG TAB PO SCH (20:19)
[2017-04-26] MEDS: RANITIDINE HCL 150 MG TAB PO SCH (20:19)
--- NOTE | 2017-04-27 05:51 | EMERGENCY ROOM VISIT NOTE ---
History First contact with patient: 22:16 Chief Complaint: WOUND DEHISCENCE Stated Complaint: BLEEDING FROM OPEN WOUND OF CHEST WALL Nursing Triage Summary: pt has wound on L chest from chemo tx infiltration wound vac in place X 1 month today started bleeding from site home health eval today when blood was in vac tubing . site has become worse with larg amount of bleeding under dressing History of Present Illness The patient is a 81 year old female who presents to the Emergency Room with complaints of left sided chest wall bleeding that has been worsening over the past 4 or 5 hours. The patient has a history of breast cancer with a left chest wall port. She was initially to have chemotherapy through this port, however there was extravasation of the chemotherapy into the soft tissue, causing a large necrotic area. She had this episode roughly 3 months ago, and was admitted for some time following the episode. She now has a wound VAC in place, and this was reapplied this afternoon by home nursing. The patient subsequently developed a small amount of blood in the wound VAC, which increased markedly in volume. She is now having blood seen from underneath the wound VAC dressing. 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 The patient is not having significant pain, lightheadedness, or dizziness. She is accompanied by family, and rates her current discomfort a 5/10. Review of Systems More than 10 systems were reviewed and otherwise negative with the exception of history of present illness. Past Medical/Surgical History Medical Problems: (1) AGUSTIN (acute kidney injury) (2) Anemia (3) Anticoagulants,Lt,Current Use (4) Asthma, Unspecified, W (Acute) Exacerbation (5) Bilateral pulmonary embolism (6) Bleeding from open wound of chest wall (7) Breast cancer (8) CHF (congestive heart failure) (9) Hypertension Nos (10) Near syncope (11) Old Myocardial Infarct (12) Open wound of chest (wall), complicated (13) Oth Pulmon Embolism/Infarct Surgical Problems: (1) History of knee replacement Family History Cancer Diabetes mellitus Myocardial infarction Social History Smoking Status: Former Smoker Smokeless Tobacco Use: No Alcohol Use: none Drug Use: none Marital Status: Housing Status: lives alone Occupation Status: retired Current/Historical Medications Scheduled Albuterol Hfa (Ventolin Hfa), 1-2 PUFFS INH Q4-6H Anastrozole (Anastrozole), 1 MG PO DAILY Aspirin (Aspirin), 81 MG PO QAM Calcium Carbonate-Vitamin D (Calcium + D), 1 TAB PO BID Doxycycline Hyclate (Doxycycline Hyclate), 100 MG PO BID Fluticasone Propionate (Inhala (Flovent Diskus), 2 PUFFS INH BID Furosemide (Lasix), 40 MG PO DAILY Lactobacillus (Floranex), 1 TAB PO TIDM Metoprolol Succinate (Metoprolol Succinate ER), 50 MG PO TID Pantoprazole (Protonix), 40 MG PO QAM Polyethylene Glycol 3350 (Miralax), 17 GM PO prn Ranitidine (Zantac), 150 MG PO HS Rosuvastatin Calcium (Crestor), 40 MG PO HS Warfarin Sodium (Coumadin), 1 MG PO 4XWK Warfarin Sodium (Coumadin), 2 MG PO 3XWK Scheduled PRN Metoclopramide (Reglan), 5 MG PO QPM PRN for Dyspepsia Physical Exam Vital Signs Date Time Temp Pulse Resp B/P (MAP) Pulse Ox O2 Delivery O2 Flow Rate FiO2 04/26/17 00:18 77 18 103/71 95 Room Air 04/25/17 23:44 78 20 117/67 97 Room Air 04/25/17 23:34 77 04/25/17 23:31 78 18 128/66 98 Room Air 04/25/17 22:02 36.8 87 20 119/66 97 Room Air Physical Exam VITALS: Vitals are noted on the nurse's note and reviewed by myself. Vital signs stable. GENERAL: Well-developed, well-nourished, white female, who is in no acute distress and resting comfortably. Patient is cooperative with the examination. NECK: Supple without nuchal rigidity. No lymphadenopathy. No thyromegaly. Cervical spine is nontender. HEART: Regular rate and rhythm without murmurs gallops or rubs. LUNGS: Clear to auscultation bilaterally without wheezes, rales or rhonchi. No retractions or accessory muscle use. CHEST WALL: Very large wound appreciated to the left side chest wall. There is a wound VAC in place. There is active seeping blood along the medial dressing onto the patient's skin and down. ABDOMEN: Positive normal bowel sounds x 4. Soft, nontender, without masses or organomegaly. No guarding or rebound tenderness. MUSCULOSKELETAL: No muscle atrophy, erythema, or edema noted. Full range of motion without joint tenderness in all extremities. No tenderness to palpation. Normal gait. Strength 5/5 throughout. NEURO: Patient was alert and oriented to person place and time. CN II through XII grossly intact. No focal neurological deficits. Deep tendon reflexes 2+ throughout. SKIN: The skin was without rashes, erythema, edema, or bruising. Capillary refill less than 2 seconds. Medical Decision & Procedures Laboratory Results 04/25/17 23:13 Red Blood Count 3.86, Mean Corpuscular Volume 88.6, Mean Corpuscular Hemoglobin 28.0, Mean Corpuscular Hemoglobin Concent 31.6, Mean Platelet Volume 9.9, Neutrophils (%) (Auto) 66.2, Lymphocytes (%) (Auto) 15.0, Monocytes (%) (Auto) 13.5, Eosinophils (%) (Auto) 4.4, Basophils (%) (Auto) 0.7, Neutrophils # (Auto ) 3.94, Lymphocytes # (Auto) 0.89, Monocytes # (Auto) 0.80, Eosinophils # (Auto ) 0.26, Basophils # (Auto) 0.04 Test 04/25/17 22:40 04/25/17 23:13 04/25/17 23:21 Bedside Prothrombin Time INR 4.3 (0.9-1.1) White Blood Count 5.94 K/uL (4.8-10.8) Red Blood Count 3.86 M/uL (4.2-5.4) Hemoglobin 10.8 g/dL (12.0-16.0) Hematocrit 34.2 % (37-47) Mean Corpuscular Volume 88.6 fL (80-100) Mean Corpuscular Hemoglobin 28.0 pg (25-34) Mean Corpuscular Hemoglobin Concent 31.6 g/dl (32-36) Platelet Count 208 K/uL (130-400) Mean Platelet Volume 9.9 fL (7.4-10.4) Neutrophils (%) (Auto) 66.2 % Lymphocytes (%) (Auto) 15.0 % Monocytes (%) (Auto) 13.5 % Eosinophils (%) (Auto) 4.4 % Basophils (%) (Auto) 0.7 % Neutrophils # (Auto) 3.94 K/uL (1.4-6.5) Lymphocytes # (Auto) 0.89 K/uL (1.2-3.4) Monocytes # (Auto) 0.80 K/uL (0.11-0.59) Eosinophils # (Auto) 0.26 K/uL (0-0.5) Basophils # (Auto) 0.04 K/uL (0-0.2) RDW Standard Deviation 50.1 fL (36.4-46.3) RDW Coefficient of Variation 15.7 % (11.5-14.5) Immature Granulocyte % (Auto) 0.2 % Immature Granulocyte # (Auto) 0.01 K/uL (0.00-0.02) Activated Partial Thromboplast Time 39.6 SECONDS (21.0-31.0) Partial Thromboplastin Ratio 1.5 Est Creatinine Clear Calc Drug Dose 24.3 ml/min Total Bilirubin 0.5 mg/dl (0.2-1) Aspartate Amino Transf (AST/SGOT) 29 U/L (15-37) Alanine Aminotransferase (ALT/SGPT) 24 U/L (12-78) Alkaline Phosphatase 72 U/L (45-117) Total Protein 7.2 gm/dl (6.4-8.2) Albumin 2.7 gm/dl (3.4-5.0) Globulin 4.5 gm/dl (2.5-4.0) Albumin/Globulin Ratio 0.6 (0.9-2) Chemistry Specimen Hemolysis Bedside Hemoglobin 10.2 g/dl (12.0-16.0) Bedside Hematocrit 30 % (37-47) Bedside Sodium 142 mEq/L (135-144) Bedside Potassium 3.5 mEq/L (3.3-5.0) Bedside Chloride 99 mEq/L (101-112) Bedside Total CO2 30 mEq/l (24-31) Bedside Blood Urea Nitrogen 31 mg/dl (7-18) Bedside Creatinine 1.8 mg/dl (0.6-1.3) Bedside Glucose (other) 97 mg/dl (70-99) Bedside Ionized Calcium (Humaira) 1.13 mmol/l (1.12-1.32) Medications Administered Medications (Trade) Dose Ordered Sig/Sendy Route Start Time Stop Time Status Last Admin Dose Admin Phytonadione 2 mg/ Sodium Chloride 50.2 ml @ 100.5 mls/ hr ONE ONCE IV 04/25/17 23:15 1/29/18 23:44 DC 04/25/17 23:30 100.5 MLS/HR ED Course Physical exam and history were performed. Nursing notes, EMR, and Medication List were personally reviewed. Patient appears to have bleeding from a left side chest wound. She is on Coumadin, and her symptoms have evidently been worsening over the past several hours. The patient otherwise does not appear toxic. IV access was established and labs were obtained. A pressure dressing was placed over the wound VAC dressing. Patient's blood work is as above and was reviewed. She does not have a significantly elevated white blood cell count. Her [id number] INR was 4.3, and [id number] hemoglobin was greater than 10. I discussed the case with my attending physician, Dr. Valentine, and then with the Coumadin clinic, Dr. Helms. Recognition was to start IV vitamin K in attempts to normalize the patient INR. I additionally discussed the case with the on-call surgeon, Dr. Magaña, who recommended leaving the wound VAC dressing in place at this time. This appears reasonable as we have considerable concern that this may cause significant bleeding. Overall the patient does not appear well for discharge home. She has a supratherapeutic INR with active bleeding from a large wound on her chest. She will likely need more normalization of her INR, however with her history of cancer and PEs this will be a delicate process. The patient was discussed with the on-call hospitalist, who agreed to evaluate the patient here in the department. Please see their dictation for further patient course, plan, and disposition. The chart was completed utilizing [employer] Speech Voice Recognition Software. Grammatical errors, random word insertions, pronoun errors, and incomplete sentences are an occasional consequence of this system due to software limitations, ambient noise, and hardware issues. Any formal questions or concerns about the content, text, or information contained within the body of this dictation should be directly addressed to the provider for clarification. . Medical Decision Differential diagnosis includes, but is not limited to: Supratherapeutic INR, bleeding from wound, infection, and others Impression Primary Impression: Bleeding from open wound of chest wall Departure Information Dispostion Still a Patient Condition FAIR Referrals Pro,Lucian Sawyer M.D. (PCP) Forms WORK / SCHOOL INSTRUCTIONS, HOME CARE DOCUMENTATION FORM, IMPORTANT VISIT INFORMATION Patient Instructions [facility]
[2017-04-27 07:34] LABS: INR 1.1 (0.9-1.1)
[2017-04-27 08:04] LABS: CALCIUM 8.3 mg/dl (8.5-10.1); CREATININE 1.49 mg/dl (0.60-1.20); POTASSIUM 2.9 mmol/L (3.5-5.1)
[2017-04-27 08:18] VITALS: BP 117/70; PULSE 77; TEMP 36.6; O2SAT 97
[2017-04-27] MEDS: DOXYCYCLINE HYCLATE 100 MG CAP PO SCH ×2 (08:27→21:02)
[2017-04-27] MEDS: LACTOBACILLUS ACIDOPHILUS (FLORANEX) TAB PO SCH ×3 (08:27→15:50)
[2017-04-27] MEDS: CALCIUM 600MG + VIT D 400 IU TAB PO SCH ×2 (08:28→20:59)
[2017-04-27] MEDS: ASPIRIN 81 MG ECTAB PO SCH (08:28)
[2017-04-27] MEDS: PANTOprazole SOD 40 MG TAB PO SCH (08:29)
[2017-04-27] MEDS: FUROSEMIDE 40 MG TAB PO SCH (08:29)
[2017-04-27] MEDS ORDERED: POTASSIUM CHLORIDE 10 MEQ TABCR PO ONE (08:30)
[2017-04-27] MEDS: ANASTROZOLE 1 MG TAB PO SCH (08:32)
[2017-04-27] MEDS: METOPROLOL SUCC 50MG EXT REL TAB PO SCH ×3 (08:33→21:01)
[2017-04-27] MEDS: POTASSIUM CHLR 10 MEQ / WTR 10 MEQ in PREMIXED WATER 100 ML IV SCH ×2 (08:49→09:30)
[2017-04-27 08:52] LABS: BASO % 0.6 %; BASO ABS # 0.03 K/uL (0-0.2); EOS % 7.5 %; EOS ABS # 0.36 K/uL (0-0.5); HEMATOCRIT 26.7 % (37-47); HEMOGLOBIN 8.3 g/dL (12.0-16.0); IG# 0.01 K/uL (0.00-0.02); LYMPH % 16.3 %; LYMPH ABS # 0.78 K/uL (1.2-3.4); MEAN CELL VOLUME 88.4 fL (80-100); MEAN CORPUSCULAR HEMOGLOBIN 27.5 pg (25-34); MEAN CORPUSCULAR HGB CONC 31.1 g/dl (32-36); MEAN PLATELET VOLUME 9.5 fL (7.4-10.4); MONO ABS # 0.67 K/uL (0.11-0.59); NEUT % 61.4 %; NEUT ABS # 2.94 K/uL (1.4-6.5); PLATELET COUNT 195 K/uL (130-400); RED CELL DISTRIBUTION WIDTH CV 15.5 % (11.5-14.5); RED CELL DISTRIBUTION WIDTH SD 50.1 fL (36.4-46.3); WHITE BLOOD COUNT 4.79 K/uL (4.8-10.8)
--- NOTE | 2017-04-27 10:28 | Surgery Progress Note ---
Surgery Progress Note Date of Service Apr 27, 2017. Subjective Post OP Day: HD # 1 + feeling well, No complaints no further bleeding, dressing has not been changed yet today Objective Vital Signs: Date Time Temp Pulse Resp B/P (MAP) Pulse Ox O2 Delivery O2 Flow Rate FiO2 04/27/17 09:12 Room Air 04/27/17 08:18 36.6 77 16 117/70 (86) 97 Room Air 04/27/17 00:00 Room Air 04/26/17 23:30 36.5 75 18 116/74 (88) 97 Room Air 04/26/17 20:17 74 113/71 (85) 04/26/17 20:00 Room Air 04/26/17 16:00 Room Air 04/26/17 15:57 128/73 (91) 04/26/17 14:39 36.6 75 16 93/60 (71) 99 Room Air 04/26/17 13:14 80 108/70 (83) General Appearance: WD/WN, no apparent distress Head: normocephalic, atraumatic Neck: trachea midline Respiratory/Chest: no respiratory distress, no accessory muscle use, + pertinent finding (there is duoderm dressing over left chest wall wound, wound not inspected) Laboratory Results: Results Past 24 Hours Test 04/26/17 11:32 04/27/17 07:14 Range/Units Prothrombin Time 11.5 11.6 9.0-12.0 SECONDS Prothromb Time International Ratio 1.1 1.1 0.9-1.1 White Blood Count 4.79 4.8-10.8 K/uL Red Blood Count 3.02 4.2-5.4 M/uL Hemoglobin 8.3 12.0-16.0 g/dL Hematocrit 26.7 37-47 % Mean Corpuscular Volume 88.4 80-100 fL Mean Corpuscular Hemoglobin 27.5 25-34 pg Mean Corpuscular Hemoglobin Concent 31.1 32-36 g/dl Platelet Count 195 130-400 K/uL Mean Platelet Volume 9.5 7.4-10.4 fL Neutrophils (%) (Auto) 61.4 % Lymphocytes (%) (Auto) 16.3 % Monocytes (%) (Auto) 14.0 % Eosinophils (%) (Auto) 7.5 % Basophils (%) (Auto) 0.6 % Neutrophils # (Auto) 2.94 1.4-6.5 K/uL Lymphocytes # (Auto) 0.78 1.2-3.4 K/uL Monocytes # (Auto) 0.67 0.11-0.59 K/uL Eosinophils # (Auto) 0.36 0-0.5 K/uL Basophils # (Auto) 0.03 0-0.2 K/uL RDW Standard Deviation 50.1 36.4-46.3 fL RDW Coefficient of Variation 15.5 11.5-14.5 % Immature Granulocyte % (Auto) 0.2 % Immature Granulocyte # (Auto) 0.01 0.00-0.02 K/uL Red Blood Cell Morphology Unremarkable Sodium Level 138 136-145 mmol/L Potassium Level 2.9 3.5-5.1 mmol/L Chloride Level 103 98-107 mmol/L Carbon Dioxide Level 29 21-32 mmol/L Anion Gap 6.0 3-11 mmol/L Blood Urea Nitrogen 24 7-18 mg/dl Creatinine 1.49 0.60-1.20 mg/dl Est Creatinine Clear Calc Drug Dose 26.7 ml/min Estimated GFR () 38.3 Estimated GFR (Non- 33.1 BUN/Creatinine Ratio 15.9 10-20 Random Glucose 85 70-99 mg/dl Calcium Level 8.3 8.5-10.1 mg/dl Magnesium Level 2.0 1.8-2.4 mg/dl Assessment & Plan 81 year-old female with 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 Chronic wound vac therapy. Acute blood loss anemia secondary to bleeding wound. INR Supratherapeutic on admission now 1.1 s/p Vitamin K administration. Bleeding has ceased. Hemoglobin 8.3 and stable today. Plan: Dr. Groves is to see patient today. Possible wound debridement/cleanup. Will take over care Our services signing off Continue current medical management and wound care management. Thank you for consultation Dr. Bauer has seen and examined patient, agrees with above
--- NOTE | 2017-04-27 15:19 | Wound Progress Note: Inpatient ---
Wound Progress Note Date of Service Apr 27, 2017. Subjective Pt evaluation today including: conversation w/ patient, physical exam, chart review, review of studies Patient seen today for ongoing follow-up evaluation of a wound to the left chest wall with subsequent bleeding. Patient currently denies any pain or active bleeding from the site. Patient denies any other systemic complaints at this time. Patient has been under care at the wound center for this problem and tolerating wound VAC therapy without difficulty. Objective Vital Signs Date Time Temp Pulse Resp B/P (MAP) Pulse Ox O2 Delivery O2 Flow Rate FiO2 04/27/17 09:12 Room Air 04/27/17 08:18 36.6 77 16 117/70 (86) 97 Room Air 04/27/17 08:00 Room Air 04/27/17 00:00 Room Air 04/26/17 23:30 36.5 75 18 116/74 (88) 97 Room Air 04/26/17 20:17 74 113/71 (85) 04/26/17 20:00 Room Air 04/26/17 16:00 Room Air 04/26/17 15:57 128/73 (91) 04/26/17 14:39 36.6 75 16 93/60 (71) 99 Room Air Physical Exam Notes: Patients vital signs were reviewed and found unremarkable patient is afebrile. Patient's INR is now subtherapeutic. The wound site on the left chest wall today measures 6 x 11 x 2.3 cm. There is tunneling present between 10 and 11: 00 of 3.5 cm. Scattered areas of central slough along with some minimal necrotic tissue is noted. Good granulation tissue is noted in the distal one third of the wound site. No active bleeding or drainage noted. No odor present. No pain to palpation or fluctuance present in the periphery. Laboratory Results Last 24 Hours Test 04/27/17 07:14 White Blood Count 4.79 K/uL Red Blood Count 3.02 M/uL Hemoglobin 8.3 g/dL Hematocrit 26.7 % Mean Corpuscular Volume 88.4 fL Mean Corpuscular Hemoglobin 27.5 pg Mean Corpuscular Hemoglobin Concent 31.1 g/dl Platelet Count 195 K/uL Mean Platelet Volume 9.5 fL Neutrophils (%) (Auto) 61.4 % Lymphocytes (%) (Auto) 16.3 % Monocytes (%) (Auto) 14.0 % Eosinophils (%) (Auto) 7.5 % Basophils (%) (Auto) 0.6 % Neutrophils # (Auto) 2.94 K/uL Lymphocytes # (Auto) 0.78 K/uL Monocytes # (Auto) 0.67 K/uL Eosinophils # (Auto) 0.36 K/uL Basophils # (Auto) 0.03 K/uL RDW Standard Deviation 50.1 fL RDW Coefficient of Variation 15.5 % Immature Granulocyte % (Auto) 0.2 % Immature Granulocyte # (Auto) 0.01 K/uL Red Blood Cell Morphology Unremarkable Prothrombin Time 11.6 SECONDS Prothromb Time International Ratio 1.1 Sodium Level 138 mmol/L Potassium Level 2.9 mmol/L Chloride Level 103 mmol/L Carbon Dioxide Level 29 mmol/L Anion Gap 6.0 mmol/L Blood Urea Nitrogen 24 mg/dl Creatinine 1.49 mg/dl Est Creatinine Clear Calc Drug Dose 26.7 ml/min Estimated GFR () 38.3 Estimated GFR (Non- 33.1 BUN/Creatinine Ratio 15.9 Random Glucose 85 mg/dl Calcium Level 8.3 mg/dl Magnesium Level 2.0 mg/dl Assessment and Plan Assessment: Non healing wound left chest wall Plan: The site did require debridement. With patient's permission and after the application of topical Xylocaine 4% the site was debrided with scissors and forceps of central slough and some necrotic tissue. Additional subcutaneous tissue was also removed. No significant bleeding occurred. Patient tolerated the procedure well. The site will be managed today with irrigating wound VAC 10 minutes of normal saline irrigation followed by 2 hours VAC therapy black foam 125 mm of negative pressure. Patient will be Continually monitored during her hospital course and discharged with a home VAC if no bleeding occurs. Patient will be followed up in the outpatient clinic as well. This represented an excisional debridement of approximately 40 cm. Anticoagulant therapy can be resumed.
--- NOTE | 2017-04-27 15:19 | Hospitalist Progress Note ---
Hospitalist Progress Note Date of Service Apr 27, 2017. Subjective Pt evaluation today including: conversation w/ patient, conversation w/ family , physical exam, chart review, lab review, review of studies, conversation w/ data migration consultant Pain: None PO Intake: Good Voiding: no voiding problems The patient was seen and examined this morning. Pt reports well today and has no acute complaints. She denies any bleeding from Left chest wall wound, and is somewhat sore with removal of dressing. There is a foul smell along with purulent drainage coming out from it. Pt was seen in conjunction with Dr. Groves , wound care, at bedside. She denies any fevers, chills or sweats. Following with wound as an outpatient. At this point in time wound care does not see a contraindication to resuming Coumadin, and does not believe the patient would need to be heparinized. Risks of worsening bleeding, clotting, and needs for reversal of INR were discussed with the patient, it was determined that the benefit of resuming Coumadin at this point outweigh the risks. ROS: Constitutional: No fever, sweats or chills Eyes: No diplopia, no worsening or blurred vision ENT: normal hearing, no trouble swallowing Respiratory: No cough, sputum, dyspnea at rest or on exertion Cardiovascular: + Pain over the left chest wall surrounding the wound, no substernal chest pain, tightness or palpitations Abdomen: No pain, nausea, vomiting, diarrhea or constipation Musculoskeletal: No joint pain, calf pain, swelling Neurologic: No weakness, numbness/tingling, or balance problems Psychiatric: No anxiety or depression Skin: No rash or itch Objective Vital Signs Date Time Temp Pulse Resp B/P (MAP) Pulse Ox O2 Delivery O2 Flow Rate FiO2 04/27/17 09:12 Room Air 04/27/17 08:18 36.6 77 16 117/70 (86) 97 Room Air 04/27/17 08:00 Room Air 04/27/17 00:00 Room Air 04/26/17 23:30 36.5 75 18 116/74 (88) 97 Room Air 04/26/17 20:17 74 113/71 (85) 04/26/17 20:00 Room Air 04/26/17 16:00 Room Air 04/26/17 15:57 128/73 (91) 04/26/17 14:39 36.6 75 16 93/60 (71) 99 Room Air 04/26/17 13:14 80 108/70 (83) Physical Exam Notes: General: awake, alert, no apparent distress, seen up ambulating about the room. Head: Normocephalic, atraumatic ENT: PERRL, EOMI, no pharyngeal exudate, mucous membranes moist Chest: + Large cavitary left chest wound with surrounding granulation tissue at the borders. There is an area tracking near the midline with overlying viable skin. +. foul smell from the wound, also with some purulent drainage. No active bleeding. Clear to auscultation, on room air, no adventitious breath sounds Cardiac: Regular rate and rhythm, no murmur, no JVD, normal peripheral pulses, good capillary refill Abdominal: NABS x 4 quadrants, soft, nontender to palpation, no rebound, guarding or tenderness Extremities: Normal inspection, no peripheral edema or erythema, calfs nontender to palpation Psych: Normal mood and affect Neuro: AAO x 3, strength intact bilaterally and related 5/5, no motor deficits, speech is clear, no peripheral sensory deficits Laboratory Results Last 24 Hours Test 04/27/17 07:14 White Blood Count 4.79 K/uL Red Blood Count 3.02 M/uL Hemoglobin 8.3 g/dL Hematocrit 26.7 % Mean Corpuscular Volume 88.4 fL Mean Corpuscular Hemoglobin 27.5 pg Mean Corpuscular Hemoglobin Concent 31.1 g/dl Platelet Count 195 K/uL Mean Platelet Volume 9.5 fL Neutrophils (%) (Auto) 61.4 % Lymphocytes (%) (Auto) 16.3 % Monocytes (%) (Auto) 14.0 % Eosinophils (%) (Auto) 7.5 % Basophils (%) (Auto) 0.6 % Neutrophils # (Auto) 2.94 K/uL Lymphocytes # (Auto) 0.78 K/uL Monocytes # (Auto) 0.67 K/uL Eosinophils # (Auto) 0.36 K/uL Basophils # (Auto) 0.03 K/uL RDW Standard Deviation 50.1 fL RDW Coefficient of Variation 15.5 % Immature Granulocyte % (Auto) 0.2 % Immature Granulocyte # (Auto) 0.01 K/uL Red Blood Cell Morphology Unremarkable Prothrombin Time 11.6 SECONDS Prothromb Time International Ratio 1.1 Sodium Level 138 mmol/L Potassium Level 2.9 mmol/L Chloride Level 103 mmol/L Carbon Dioxide Level 29 mmol/L Anion Gap 6.0 mmol/L Blood Urea Nitrogen 24 mg/dl Creatinine 1.49 mg/dl Est Creatinine Clear Calc Drug Dose 26.7 ml/min Estimated GFR () 38.3 Estimated GFR (Non- 33.1 BUN/Creatinine Ratio 15.9 Random Glucose 85 mg/dl Calcium Level 8.3 mg/dl Magnesium Level 2.0 mg/dl Assessment and Plan 81 y/o F Hx breast CA, HTN, HPL, CKD III, multiple PEs, and newly diagnosed systolic CHF with EF of 25% - on Coumadin, chronic anemia, systolic CHF. 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 Patient noticed uncontrollable bleeding from wound site after wound vac was changed and presented to the ER. Her INR was slightly elevated currently 3.2. Cavitary chest wound s/p extravasation of doxorubicin for breast cancer Bleeding from chest wound - Received Kcentra due to profuse bleeding and had received 10 vit K as well. - Hgb=8.3, has dropped from around baseline of ~10. No need for transfusion at this time, monitor. Will obtain blood consent today just in case needed overnight. - General surgery consulted but no surgical intervention - Wound care consulted - spoke with Dr. Groves at bedside. No plans for surgical intervention - planning on wound irrigation vac placement today, see imaging in EMR. - Will monitor hgb and resume coumadin for INR goal around 2. No need for heparinization at this point at this time per wound. Risks and benefits were discussed with the patient of worsening bleeding potential, worsening clot. This was also discussed with Dr. Wilson, please see addendum below. Systolic CHF w/ EF of 25%: - Continue Lasix 40 mg PO daily - Monitor I&Os and daily weights, was 74kg during previous admission about 2 weeks ago. CKD - creat is at baseline HTN - Cont Metoprolol succ 50 mg TID Lobular breast carcinoma ER [place] positive HER-2/bryce negative and did have many lymph nodes positive S/p right breast lumpectomy and axillary lymph node dissection by Dr. Clemons on 11/04/2016, followed by initiation of chemotherapy in 11/2016, extravasation of the left breast due to chemotherapy with the first dose of chemo. XRT was started 12/2016, she has finished last radiation of the right breast on 03/30/17 completing 85% of treatment. - Due to her medical comorbidities she elected not to finish the last 5 treatments of XRT - Plan is to resume chemotherapy with Arimidex during this gap in xrt and chemo. - Pt follows with Dr. Bardales as an outpatient. - PET negative for metastasis - stable Hx Multiple PEs - in Apr 2014 found to have extensive PEs and at that time was placed on anticoagulation lifelong. - During admission for septic shock on 04/15/17 pt coumadin was increased to 2 mg 3 days per week and 1 mg all other days, likely led to increased INR with this admission. Will need close monitoring during this admission and likely lowered dose between 1 and 2 mg alternating doses again at time of discharge. HPL - cont rosuvastatin 40 mg HS DVT ppx: coumadin, scds, ambulatory CODE STATUS: Full code Dispostion: From home, lives independently, CM to assist with dc planning.
[2017-04-27] MEDS ORDERED: WARFARIN SOD 1 MG TAB PO SCH (16:00)
[2017-04-27 19:27] VITALS: BP 125/77; PULSE 84; TEMP 36.6; O2SAT 99
[2017-04-27] MEDS: RANITIDINE HCL 150 MG TAB PO SCH (20:59)
[2017-04-27] MEDS: ROSUVASTATIN CALCIUM 20 MG TAB PO SCH (21:01)
[2017-04-27] MEDS: BOOST VANILLA PO SCH (21:02)
[2017-04-27 22:30] VITALS: BP 119/73; PULSE 81; TEMP 36.7; O2SAT 97
[2017-04-28 03:45] LABS: BASO % 0.6 %; BASO ABS # 0.03 K/uL (0-0.2); EOS % 7.3 %; EOS ABS # 0.39 K/uL (0-0.5); HEMATOCRIT 25.1 % (37-47); HEMOGLOBIN 8.1 g/dL (12.0-16.0); IG# 0.02 K/uL (0.00-0.02); LYMPH % 16.6 %; LYMPH ABS # 0.88 K/uL (1.2-3.4); MEAN CORPUSCULAR HEMOGLOBIN 28.7 pg (25-34); MEAN CORPUSCULAR HGB CONC 32.3 g/dl (32-36); MEAN PLATELET VOLUME 9.2 fL (7.4-10.4); MONO % 11.1 %; MONO ABS # 0.59 K/uL (0.11-0.59); NUCLEATED RED BLOOD CELL ABS 0.05 K/uL (0-0); PLATELET COUNT 172 K/uL (130-400); RED CELL DISTRIBUTION WIDTH CV 15.3 % (11.5-14.5); WHITE BLOOD COUNT 5.31 K/uL (4.8-10.8)
[2017-04-28 03:48] VITALS: BP 113/74; PULSE 91; TEMP 36.6; O2SAT 96
[2017-04-28 04:17] LABS: CALCIUM 8.2 mg/dl (8.5-10.1); CREATININE 1.63 mg/dl (0.60-1.20); POTASSIUM 3.6 mmol/L (3.5-5.1)
[2017-04-28 05:16] LABS: PTT PATIENT 25.2 SECONDS (21.0-31.0)
[2017-04-28 07:46] VITALS: BP 118/64; PULSE 91; TEMP 36.6; O2SAT 96
[2017-04-28] MEDS: ASPIRIN 81 MG ECTAB PO SCH (08:08)
[2017-04-28] MEDS: DOXYCYCLINE HYCLATE 100 MG CAP PO SCH (08:08)
[2017-04-28] MEDS: CALCIUM 600MG + VIT D 400 IU TAB PO SCH (08:09)
[2017-04-28] MEDS: FUROSEMIDE 40 MG TAB PO SCH (08:09)
[2017-04-28] MEDS: PANTOprazole SOD 40 MG TAB PO SCH (08:09)
[2017-04-28] MEDS: LACTOBACILLUS ACIDOPHILUS (FLORANEX) TAB PO SCH ×2 (08:09→11:12)
[2017-04-28] MEDS: METOPROLOL SUCC 50MG EXT REL TAB PO SCH ×2 (08:09→14:28)
[2017-04-28] MEDS: ANASTROZOLE 1 MG TAB PO SCH (08:24)
--- NOTE | 2017-04-28 08:46 | Hospitalist Progress Note ---
Hospitalist Progress Note Date of Service Apr 28, 2017. Objective Vital Signs Date Time Temp Pulse Resp B/P (MAP) Pulse Ox O2 Delivery O2 Flow Rate FiO2 04/28/17 07:46 36.6 91 16 118/64 (82) 96 Room Air 04/28/17 03:48 36.6 91 18 113/74 (87) 96 Room Air 04/28/17 00:00 Room Air 04/27/17 22:30 36.7 81 16 119/73 (88) 97 Room Air 04/27/17 19:27 36.6 84 20 125/77 (93) 99 04/27/17 16:00 Room Air 04/27/17 09:12 Room Air Laboratory Results Last 24 Hours Test 04/28/17 03:30 04/28/17 04:39 04/28/17 08:42 White Blood Count 5.31 K/uL Red Blood Count 2.82 M/uL Hemoglobin 8.1 g/dL Hematocrit 25.1 % Mean Corpuscular Volume 89.0 fL Mean Corpuscular Hemoglobin 28.7 pg Mean Corpuscular Hemoglobin Concent 32.3 g/dl Platelet Count 172 K/uL Mean Platelet Volume 9.2 fL Neutrophils (%) (Auto) 64.0 % Lymphocytes (%) (Auto) 16.6 % Monocytes (%) (Auto) 11.1 % Eosinophils (%) (Auto) 7.3 % Basophils (%) (Auto) 0.6 % Neutrophils # (Auto) 3.40 K/uL Lymphocytes # (Auto) 0.88 K/uL Monocytes # (Auto) 0.59 K/uL Eosinophils # (Auto) 0.39 K/uL Basophils # (Auto) 0.03 K/uL RDW Standard Deviation 50.0 fL RDW Coefficient of Variation 15.3 % Immature Granulocyte % (Auto) 0.4 % Immature Granulocyte # (Auto) 0.02 K/uL Nucleated RBC Absolute Count (auto) 0.05 K/uL Nucleated Red Blood Cells % 0.9 % Red Blood Cell Morphology Unremarkable Sodium Level 138 mmol/L Potassium Level 3.6 mmol/L Chloride Level 105 mmol/L Carbon Dioxide Level 32 mmol/L Anion Gap 1.0 mmol/L Blood Urea Nitrogen 24 mg/dl Creatinine 1.63 mg/dl Est Creatinine Clear Calc Drug Dose 24.4 ml/min Estimated GFR () 34.4 Estimated GFR (Non- 29.7 BUN/Creatinine Ratio 14.4 Random Glucose 92 mg/dl Calcium Level 8.2 mg/dl Magnesium Level 2.0 mg/dl Activated Partial Thromboplast Time 25.2 SECONDS Partial Thromboplastin Ratio 1.0 Assessment and Plan 81 y/o F Hx breast CA, HTN, HPL, CKD III, multiple PEs, and newly diagnosed systolic CHF with EF of 25% - on Coumadin, chronic anemia, systolic CHF. 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 Patient noticed uncontrollable bleeding from wound site after wound vac was changed and presented to the ER. Her INR was slightly elevated currently 3.2. Cavitary chest wound s/p extravasation of doxorubicin for breast cancer Bleeding from chest wound - Received Kcentra due to profuse bleeding and had received 10 vit K as well. - Hgb=8.1, has dropped from around baseline of ~10. No need for transfusion at this time, monitor. Will obtain blood consent today just in case needed overnight. - General surgery consulted but no surgical intervention - Wound care consulted - wound irrigation vac placed - appreciate recommendations. - Will monitor hgb and resume coumadin for INR goal around 2. Systolic CHF w/ EF of 25%: - Continue Lasix 40 mg PO daily - Monitor I&Os and daily weights, was 74kg during previous admission about 2 weeks ago. CKD - creat is at baseline HTN - Cont Metoprolol succ 50 mg TID Lobular breast carcinoma ER [place] positive HER-2/bryce negative and did have many lymph nodes positive S/p right breast lumpectomy and axillary lymph node dissection by Dr. Clemons on 11/04/2016, followed by initiation of chemotherapy in 11/2016, extravasation of the left breast due to chemotherapy with the first dose of chemo. XRT was started 12/2016, she has finished last radiation of the right breast on 03/30/17 completing 85% of treatment. - Due to her medical comorbidities she elected not to finish the last 5 treatments of XRT - Plan is to resume chemotherapy with Arimidex during this gap in xrt and chemo. - Pt follows with Dr. Bardales as an outpatient. - PET negative for metastasis - stable Hx Multiple PEs - in Apr 2014 found to have extensive PEs and at that time was placed on anticoagulation lifelong. - During admission for septic shock on 04/15/17 pt coumadin was increased to 2 mg 3 days per week and 1 mg all other days, likely led to increased INR with this admission. Will need close monitoring during this admission and likely lowered dose between 1 and 2 mg alternating doses again at time of discharge. HPL - cont rosuvastatin 40 mg HS DVT ppx: coumadin, scds, ambulatory CODE STATUS: Full code Dispostion: From home, lives independently, CM to assist with dc planning.
[2017-04-28 09:17] LABS: INR 1.2 (0.9-1.1)
--- NOTE | 2017-04-28 10:47 | Discharge Instructions ---
Discharge Instructions Date of Service Apr 28, 2017. Admission Reason for Admission: Bleeding From Open Wound Of Chest Wall Discharge Discharge Diagnosis / Problem: Cavitary chest wall wound bleed, supratherapeutic INR Discharge Goals Goal(s): Decrease discomfort, Improve function, Increase independence, Improve disease control Activity Recommendations Activity Limitations: resume your previous activity Lifting Limitations: no more than 25 pounds, gradually increase as tolerated Exercise/Sports Limitations: rest today, gradually increase as tolerated May Resume Sexual Activity: when tolerated Shower/Bathe: no limitations Driving or Machine Use: no limitations (after clearance from your PCP) . Instructions / Follow-Up Instructions / Follow-Up You were admitted to [facility] with bleeding from the left sided chest wall wound and diagnosed with supratherapeutic INR causing bleeding. During your stay here you were treated with supportive care. You were seen by Dr. Groves, wound care, and had an irrigating wound vac placed over the chest wound. Your INR was reversed initially, and then you were slowly restarted on coumadin. Medications: Continue to take coumadin as prescribed: 2 mg tonight (04/28), 2 mg tomorrow (), then have INR drawn on Tuesday morning by home health. The results should be faxed to your PCP and further titration of coumadin can be determined at that time. Doxycycline (antibiotic) was continued during your admission. You can take 4 less of doxycycline tablets that you have left at home, this will be the appropriate course. If you are unable to determine which pills are doxycycline because they are in a pill box and mixed with other medications, just continue taking these 4 extra pills. Continue taking all other medications as prescribed. Labs: Have INR checked on 04/30 by home health. Results should be faxed to your PCP and Coumadin regimen determined from that result. Your INR =1.2 at time of discharge. Appointments: Follow up with your Primary Care Provider within 1 week. Follow with home health for wound vac care as per the wound clinic. You should also follow up with wound clinic within 1-2 weeks. Current Hospital Diet Patient's current hospital diet: AHA Diet (Heart Healthy) Discharge Diet Recommended Diet: AHA Diet (Heart Healthy) Pending Studies Studies pending at discharge: no Laboratory Results Hemoglobin A1c Test 04/04/17 22:49 Range/Units Estimated Average Glucose 117 mg/dl Hemoglobin A1c 5.7 H 4.5-5.6 % Medical Emergencies . Who to Call and When: Medical Emergencies: If at any time you feel your situation is an emergency, please call 911 immediately. . Non-Emergent Contact Non-Emergency issues call your: Primary Care Provider Call Non-Emergent contact if: you have a fever, temperature is above 100.5, your pain is not controlled, your pain is worsening, your pain is unusual for you, your pain is concerning you, wound has increased drainage, wound has increased redness, wound has increased pain, you have any medication questions other concerns with your health. Call 911 or go directly to the Emergency Department if you experience any of the following: Chest pain, chest tightness, shortness of breath, abdominal pain , lightheadedness, dizziness, gastrointestinal bleeding, or have any other concerns regarding your health. . Past History Medical & Surgical History: (1) Bleeding from open wound of chest wall (2) Open wound of chest (wall), complicated (3) Anticoagulants,Lt,Current Use (4) Breast cancer (5) Elevated troponin (6) Oth Pulmon Embolism/Infarct (7) Anemia (8) CHF (congestive heart failure) . "Provider Documentation" section prepared by Gloria Salcedo. . VTE Core Measure Inpt VTE Proph given/why not?: Warfarin (Coumadin), T.E.D. Stockings, SCD's
[2017-04-28 10:49] VITALS: BP 118/64; PULSE 91; TEMP 36.6; O2SAT 96
--- NOTE | 2017-04-28 15:38 | Discharge Summary ---
Discharge Summary Date of Service Apr 28, 2017. Discharge Summary Admission Date: Apr 26, 2017 at 00:38 Discharge Date: Apr 28, 2017 Discharge Disposition: Home with services Principal Diagnosis: Cavitary chest wall wound bleed, supratherapeutic INR Problems/Secondary Diagnoses: Lobular breast carcinoma [place] positive HER-2/bryce negative and did have many lymph nodes positive S/p right breast lumpectomy and axillary lymph node dissection by Dr. Clemons on 11/04/2016, followed by initiation of chemotherapy in 11/2016, extravasation of the left breast due to chemotherapy with the first dose of chemo. HTN HPL CKD III multiple PEs, last in Apr 2014 - on Coumadin systolic CHF with EF of 25% chronic anemia Immunizations: Have You Had Influenza Vaccine: N/A History of Tetanus Vaccine?: Yes History of Pneumococcal: Yes History of Hepatitis B Vaccine: No Procedures: Irrigating wound vac placement by wound care Consultations: Wound care General Surgery Medication Reconciliation Continued Medications: Albuterol Hfa (Ventolin Hfa) 200 Puffs/63950 Mcg Aers 1-2 PUFFS INH Q4-6H Anastrozole (Anastrozole) 1 Mg Tab 1 MG PO DAILY for 90 Days, #90 TAB 3 Refills Aspirin (Aspirin) 81 Mg Tab 81 MG PO QAM Calcium Carbonate-Vitamin D (Calcium + D) 1 Tab Tab 1 TAB PO BID Doxycycline Hyclate (Doxycycline Hyclate) 100 Mg Tab 100 MG PO BID for 10 Days, #20 TAB take with food First day of therapy was on 04/16 Fluticasone Propionate (Inhala (Flovent Diskus) 100 Mcg/Blist Aer 2 PUFFS INH BID Furosemide (Lasix) 40 Mg Tab 40 MG PO DAILY Lactobacillus (Floranex) 1 Tab Tab 1 TAB PO TIDM Metoclopramide (Reglan) 10 Mg Tab 5 MG PO QPM PRN for Dyspepsia NAUSEA Metoprolol Succinate (Metoprolol Succinate ER) 50 Mg Tabcr 50 MG PO TID Pantoprazole (Protonix) 40 Mg Tab 40 MG PO QAM Polyethylene Glycol 3350 (Miralax) 1 Pow Pow 17 GM PO prn Ranitidine (Zantac) 300 Mg Tab 150 MG PO HS Rosuvastatin Calcium (Crestor) 40 Mg Tab 40 MG PO HS, TAB Warfarin Sodium (Coumadin) 1 Mg Tab 1 MG PO 4XWK for 30 Days, TAB 5 Refills pt takes on tue.,mon.,tue,.tuesday at 4pm Warfarin Sodium (Coumadin) 2 Mg Tab 2 MG PO 3XWK, TAB pt takes on .,., and tuesday at 4pm Discharge Exam The patient was seen and examined this morning. Pt reports doing well today. She has not experienced any sort of bleeding was from the wound VAC. She does report that overnight there was some leakage from around the side of the vac, but that since has been corrected. Wound will be changing the wound VAC today. ROS: Constitutional: No fever, sweats or chills Eyes: No diplopia, no worsening or blurred vision ENT: normal hearing, no trouble swallowing Respiratory: No cough, sputum, dyspnea at rest or on exertion Cardiovascular: + Pain over the left chest wall surrounding the wound, no substernal chest pain, tightness or palpitations Abdomen: No pain, nausea, vomiting, diarrhea or constipation Musculoskeletal: No joint pain, calf pain, swelling Neurologic: No weakness, numbness/tingling, or balance problems Psychiatric: No anxiety or depression Skin: No rash or itch Objective Physical Exam Notes: General: awake, alert, no apparent distress, seen up ambulating about the room. Head: Normocephalic, atraumatic ENT: PERRL, EOMI, no pharyngeal exudate, mucous membranes moist Chest: + Irrigating wound VAC in place, Clear to auscultation, on room air, no adventitious breath sounds Cardiac: Regular rate and rhythm, no murmur, no JVD, normal peripheral pulses, good capillary refill Abdominal: NABS x 4 quadrants, soft, nontender to palpation, no rebound, guarding or tenderness Extremities: Normal inspection, no peripheral edema or erythema, calfs nontender to palpation Psych: Normal mood and affect Neuro: AAO x 3, strength intact bilaterally and related 5/5, no motor deficits, speech is clear, no peripheral sensory deficits Hospital Course 81 y/o F Hx breast CA, HTN, HPL, CKD III, multiple PEs, and newly diagnosed systolic CHF with EF of 25% - on Coumadin, chronic anemia, systolic CHF. 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 Patient noticed uncontrollable bleeding from wound site after wound vac was changed and presented to the ER. Her INR was slightly elevated currently 3.2. Cavitary chest wound s/p extravasation of doxorubicin for breast cancer Bleeding from chest wound - Received Kcentra due to profuse bleeding and had received 10 vit K as well. - Hgb=8.1, has dropped from around baseline of ~10. No need for transfusion at this time, monitor. - General surgery consulted but no surgical intervention - Wound care consulted - wound irrigation vac placed - appreciate recommendations. - Will monitor hgb and resume coumadin for INR goal around 2. Systolic CHF w/ EF of 25%: - Continue Lasix 40 mg PO daily - Monitor I&Os and daily weights, was 74kg during previous admission about 2 weeks ago. CKD - creat is at baseline HTN - Cont Metoprolol succ 50 mg TID Lobular breast carcinoma ER [place] positive HER-2/bryce negative and did have many lymph nodes positive S/p right breast lumpectomy and axillary lymph node dissection by Dr. Clemons on 11/04/2016, followed by initiation of chemotherapy in 11/2016, extravasation of the left breast due to chemotherapy with the first dose of chemo. XRT was started 12/2016, she has finished last radiation of the right breast on 03/30/17 completing 85% of treatment. - Due to her medical comorbidities she elected not to finish the last 5 treatments of XRT - Plan is to resume chemotherapy with Arimidex during this gap in xrt and chemo. - Pt follows with Dr. Bardales as an outpatient. - PET negative for metastasis - stable Hx Multiple PEs - in Apr 2014 found to have extensive PEs and at that time was placed on anticoagulation lifelong. - During admission for septic shock on 04/15/17 pt coumadin was increased to 2 mg 3 days per week and 1 mg all other days, likely led to increased INR with this admission. Will need close monitoring during this admission and likely lowered dose between 1 and 2 mg alternating doses again at time of discharge. - Today can take 2 mg Coumadin, 2 mg tomorrow, INR to be rechecked by home health services on Tuesday. HPL - cont rosuvastatin 40 mg HS DVT ppx: coumadin, scds, ambulatory CODE STATUS: Full code Dispostion: From home, lives independently, CM to assist with dc planning, discharge to home today. Total Time Spent: Greater than 30 minutes This includes examination of the patient, discharge planning, medication reconciliation, and communication with other providers. Discharge Instructions Please refer to the electronic Patient Visit Report (Discharge Instructions) for additional information. Follow-Up Follow up with your Primary Care Provider within 1 week. Follow with home health for wound vac care as per the wound clinic. You should also follow up with wound clinic within 1-2 weeks. Additional Copies To Lucian Noe M.D.
== END 2017-04-28 14:53 | disposition home health service (06) ==
LOC: C.EDB 21:40 → C.4E 04-26 00:38 → ENRESERV 04-26 00:54
PROVIDERS: ADMIT Internal Medicine; ATTEND Hospitalist
DX: T81.89XA Other complications of procedures, not elsewhere classified, initial encounter (principal); Y83.8 Other surgical procedures as the cause of abnormal reaction of the patient, or of later complication, without mention of misadventure at the time of the procedure; I13.0 Hypertensive heart and chronic kidney disease with heart failure and stage 1 through stage 4 chronic kidney disease, or unspecified chronic kidney disease; N18.3 Chronic kidney disease, stage 3 (moderate); I50.20 Unspecified systolic (congestive) heart failure; C50.911 Malignant neoplasm of unspecified site of right female breast; D62 Acute posthemorrhagic anemia; E78.5 Hyperlipidemia, unspecified; I25.2 Old myocardial infarction; Z79.82 Long term (current) use of aspirin; Z79.01 Long term (current) use of anticoagulants; Z17.0 Estrogen receptor positive status [ER+]; Z96.659 Presence of unspecified artificial knee joint; Z86.711 Personal history of pulmonary embolism; Z87.891 Personal history of nicotine dependence; Z83.3 Family history of diabetes mellitus; Z82.49 Family history of ischemic heart disease and other diseases of the circulatory system

== ENCOUNTER → 2017-04-25 | Outpatient (CLI) | payer MEDICARE ==
[~2017-04-25] MED LIST changes: +FRS/40 PO; +LACT1TAB4 PO; -LCTX PO; -LSX40 PO
[2017-04-25 14:34] LABS: BLOOD UREA NITROGEN 29 mg/dl (7-18); CALCIUM 9.1 mg/dl (8.5-10.1); CARBON DIOXIDE 28 mmol/L (21-32); CREATININE 1.63 mg/dl (0.60-1.20); GLUCOSE 94 mg/dl (70-99); POTASSIUM 3.6 mmol/L (3.5-5.1); SODIUM 138 mmol/L (136-145)
== END | disposition home or self-care (01) ==
LOC: C.LABBC 10:26
PROVIDERS: ATTEND Internal Medicine
DX: N17.9 Acute kidney failure, unspecified (principal)

== ENCOUNTER → 2017-05-06 | Outpatient (CLI) | payer MEDICARE ==
[~2017-05-06] MED LIST changes: -DOXY1TAB6 PO; -LACT1TAB4 PO
[2017-05-06 14:17] LABS: BLOOD UREA NITROGEN 20 mg/dl (7-18); CALCIUM 9.3 mg/dl (8.5-10.1); CARBON DIOXIDE 28 mmol/L (21-32); CREATININE 1.73 mg/dl (0.60-1.20); GLUCOSE 102 mg/dl (70-99); POTASSIUM 3.3 mmol/L (3.5-5.1); SODIUM 136 mmol/L (136-145)
== END | disposition home or self-care (01) ==
LOC: C.LABBC 11:59
PROVIDERS: ATTEND Internal Medicine
DX: E87.6 Hypokalemia (principal)

== ENCOUNTER → 2017-05-13 | Outpatient (CLI) | payer MEDICARE ==
[~2017-05-13] MED LIST changes: +LEVO1TAB34 PO
[2017-05-13 14:07] LABS: BASO % 0.5 %; BASO ABS # 0.03 K/uL (0-0.2); BLOOD UREA NITROGEN 15 mg/dl (7-18); CALCIUM 9.3 mg/dl (8.5-10.1); CARBON DIOXIDE 29 mmol/L (21-32); CREATININE 1.64 mg/dl (0.60-1.20); EOS % 6.9 %; EOS ABS # 0.44 K/uL (0-0.5); GLUCOSE 109 mg/dl (70-99); HEMATOCRIT 30.2 % (37-47); HEMOGLOBIN 9.7 g/dL (12.0-16.0); IG# 0.02 K/uL (0.00-0.02); LYMPH % 16.4 %; LYMPH ABS # 1.05 K/uL (1.2-3.4); MEAN CELL VOLUME 88.3 fL (80-100); MEAN CORPUSCULAR HEMOGLOBIN 28.4 pg (25-34); MEAN CORPUSCULAR HGB CONC 32.1 g/dl (32-36); MONO ABS # 0.51 K/uL (0.11-0.59); NEUT % 67.9 %; NEUT ABS # 4.36 K/uL (1.4-6.5); PLATELET COUNT 274 K/uL (130-400); POTASSIUM 3.4 mmol/L (3.5-5.1); RED CELL DISTRIBUTION WIDTH CV 15.5 % (11.5-14.5); RED CELL DISTRIBUTION WIDTH SD 49.5 fL (36.4-46.3); SODIUM 138 mmol/L (136-145); WHITE BLOOD COUNT 6.41 K/uL (4.8-10.8)
== END | disposition home or self-care (01) ==
LOC: C.LABBC 10:34
PROVIDERS: ATTEND Internal Medicine
DX: E87.6 Hypokalemia (principal); D64.9 Anemia, unspecified; S21.109A Unspecified open wound of unspecified front wall of thorax without penetration into thoracic cavity, initial encounter; X58.XXXA Exposure to other specified factors, initial encounter

== ENCOUNTER → 2017-05-17 | Outpatient (CLI) | payer MEDICARE ==
[~2017-05-17] MED LIST changes: +METROGEL TOP
[2017-05-17 13:21] LABS: BASO % 0.5 %; BASO ABS # 0.03 K/uL (0-0.2); EOS % 8.9 %; EOS ABS # 0.57 K/uL (0-0.5); HEMATOCRIT 29.2 % (37-47); HEMOGLOBIN 9.1 g/dL (12.0-16.0); IG# 0.02 K/uL (0.00-0.02); LYMPH % 16.6 %; LYMPH ABS # 1.06 K/uL (1.2-3.4); MEAN CELL VOLUME 90.1 fL (80-100); MEAN CORPUSCULAR HEMOGLOBIN 28.1 pg (25-34); MEAN CORPUSCULAR HGB CONC 31.2 g/dl (32-36); MEAN PLATELET VOLUME 8.9 fL (7.4-10.4); MONO ABS # 0.51 K/uL (0.11-0.59); NEUT % 65.7 %; NEUT ABS # 4.19 K/uL (1.4-6.5); PLATELET COUNT 255 K/uL (130-400); RED CELL DISTRIBUTION WIDTH CV 15.4 % (11.5-14.5); RED CELL DISTRIBUTION WIDTH SD 50.6 fL (36.4-46.3); WHITE BLOOD COUNT 6.38 K/uL (4.8-10.8)
[2017-05-17 14:26] LABS: BLOOD UREA NITROGEN 15 mg/dl (7-18); CALCIUM 8.7 mg/dl (8.5-10.1); CARBON DIOXIDE 29 mmol/L (21-32); CREATININE 1.63 mg/dl (0.60-1.20); GLUCOSE 102 mg/dl (70-99); POTASSIUM 3.1 mmol/L (3.5-5.1); SODIUM 139 mmol/L (136-145)
== END | disposition home or self-care (01) ==
LOC: C.LABBC 10:05
PROVIDERS: ATTEND Internal Medicine
DX: R91.8 Other nonspecific abnormal finding of lung field (principal); E87.6 Hypokalemia; D64.9 Anemia, unspecified; I10 Essential (primary) hypertension; Z86.711 Personal history of pulmonary embolism

== ENCOUNTER → 2017-05-20 | Outpatient (CLI) | payer MEDICARE ==
[2017-05-20 13:44] LABS: BLOOD UREA NITROGEN 16 mg/dl (7-18); CALCIUM 9.2 mg/dl (8.5-10.1); CARBON DIOXIDE 29 mmol/L (21-32); CREATININE 1.81 mg/dl (0.60-1.20); GLUCOSE 100 mg/dl (70-99); POTASSIUM 3.9 mmol/L (3.5-5.1); SODIUM 137 mmol/L (136-145)
== END | disposition home or self-care (01) ==
LOC: C.LABBC 10:14
PROVIDERS: ATTEND Internal Medicine
DX: E87.6 Hypokalemia (principal)

== ENCOUNTER → 2017-05-25 | Outpatient (CLI) | payer MEDICARE ==
[2017-05-25 13:12] LABS: BASO % 0.4 %; BASO ABS # 0.03 K/uL (0-0.2); EOS % 9.5 %; HEMATOCRIT 31.2 % (37-47); HEMOGLOBIN 10.1 g/dL (12.0-16.0); IG# 0.03 K/uL (0.00-0.02); LYMPH % 15.6 %; LYMPH ABS # 1.15 K/uL (1.2-3.4); MEAN CELL VOLUME 88.1 fL (80-100); MEAN CORPUSCULAR HEMOGLOBIN 28.5 pg (25-34); MEAN CORPUSCULAR HGB CONC 32.4 g/dl (32-36); MEAN PLATELET VOLUME 8.8 fL (7.4-10.4); MONO % 8.9 %; MONO ABS # 0.66 K/uL (0.11-0.59); NEUT % 65.2 %; NEUT ABS # 4.81 K/uL (1.4-6.5); PLATELET COUNT 268 K/uL (130-400); RED CELL DISTRIBUTION WIDTH CV 15.7 % (11.5-14.5); RED CELL DISTRIBUTION WIDTH SD 50.7 fL (36.4-46.3); WHITE BLOOD COUNT 7.38 K/uL (4.8-10.8)
[2017-05-25 14:21] LABS: BLOOD UREA NITROGEN 14 mg/dl (7-18); CALCIUM 9.4 mg/dl (8.5-10.1); CARBON DIOXIDE 26 mmol/L (21-32); CREATININE 1.76 mg/dl (0.60-1.20); GLUCOSE 86 mg/dl (70-99); POTASSIUM 3.3 mmol/L (3.5-5.1); SODIUM 137 mmol/L (136-145)
== END | disposition home or self-care (01) ==
LOC: C.LABBC 09:47
PROVIDERS: ATTEND Internal Medicine
DX: I10 Essential (primary) hypertension (principal); E88.9 Metabolic disorder, unspecified; D64.9 Anemia, unspecified; Z79.01 Long term (current) use of anticoagulants

== ENCOUNTER → 2017-05-30 | Outpatient (CLI) | payer MEDICARE ==
[2017-05-30 15:02] LABS: BLOOD UREA NITROGEN 15 mg/dl (7-18); CALCIUM 9.4 mg/dl (8.5-10.1); CARBON DIOXIDE 28 mmol/L (21-32); CREATININE 1.76 mg/dl (0.60-1.20); GLUCOSE 74 mg/dl (70-99); POTASSIUM 3.4 mmol/L (3.5-5.1); SODIUM 138 mmol/L (136-145)
== END | disposition home or self-care (01) ==
LOC: C.LABBC 10:45
PROVIDERS: ATTEND Internal Medicine
DX: E87.6 Hypokalemia (principal)

== ENCOUNTER → 2017-06-02 | Outpatient (CLI) | payer MEDICARE ==
[2017-06-02 14:13] VITALS: BP 90/60; PULSE 72; TEMP 37; O2SAT 100
--- NOTE | 2017-06-02 16:29 | Radiation Oncology Follow-Up ---
Radiation Oncology Follow-Up Date of Visit Jun 02, 2017. Reason For Visit 2 month follow-up in cancer survivorship care plan Radiation Completion Date 03/30/17 Diagnosis (1) Breast cancer Onset Date: 09/29/2016 Stage: lll (C) Permanent Comment: Abnormal right breast mammogram Status post ultrasound-guided core needle biopsy 09/29/2016 Lobular carcinoma grade 2 Estrogen receptor positive, progesterone receptor positive, and HER-2/bryce negative Status post right partial mastectomy and sentinel lymph node biopsy with completion axillary dissection 11/04/2016 Stage pT1c pN3a M0 Initiation of systemic chemotherapy with Adriamycin and Cytoxan Extravasation of chemotherapy at the port site Radiation stopped 03/30/2017. She received 5640 cGy. Treatments stopped due to skin reaction. Last Edited By: Haylie Morales on Apr 19, 2017 08:13 History of Present Illness Ms. Valdez underwent bilateral screening mammograms on 09/09/2016 which revealed a focal asymmetry in the right upper outer quadrant. The patient was brought back for a unilateral right diagnostic mammogram with Tomosynthesis and a right ultrasound on 09/20/2016 which confirmed a hypoechoic solid mass in the right upper outer quadrant measuring 7.6 mm in the greatest dimension. The patient underwent an ultrasound-guided biopsy of the right breast on 09/29/2016 which revealed invasive lobular carcinoma that was estrogen receptor positive, progesterone receptor positive and HER-2 negative. The patient underwent a right breast lumpectomy and axillary lymph node dissection by Dr. Clemons on 11/04/2016 which revealed invasive lobular carcinoma that was grade 2 with no evidence of DCIS. The tumor measured 2.0 cm in the greatest dimension. There was a positive superficial margin for invasive carcinoma. 2 sentinel lymph nodes were excised and both were positive for metastatic carcinoma. 18 additional lymph nodes were excised with a axillary lymph node dissection and 16 were positive for metastatic carcinoma; the largest metastatic deposit was 3.5 cm and extraoral extension was identified. The tumor was staged as [id number]. Dr. Clemons did have the patient 's case presented at the multidisciplinary tumor board and the recommendation was not to proceed with further surgical resection based on the location of the positive superficial margin and to proceed with chemotherapy followed by radiation therapy. The patient was seen by Dr. Dakotah Camargo from medical oncology who recommended systemic chemotherapy and anterior hormonal therapy followed by adjuvant radiation therapy. The plan for chemotherapy was for Adriamycin and cyclophosphamide followed by Taxol. The patient did have a PET/CT scan on 12/06 which revealed: "IMPRESSION: 1. Postsurgical changes of the right breast with large fluid collection most consistent with seroma. Peripheral FDG avidity is likely expected postsurgical change. 2. FDG avid right axillary lymph node lateral to the pectoralis minor is highly suspicious for metastatic disease. No other evidence of lymphadenopathy or metastatic disease in the remaining body." Multiple pulmonary nodules were also identified on the PET/CT scan. The patient then had a CT of the thorax on 12/31/2016 which revealed: "IMPRESSION: 1. Small amount of gas adjacent to the left chest wall port with fluid tracking within the subcutaneous fat of the left anterior chest/breast. There is also subcutaneous edema/fluid within the left upper chest/breast. No loculated fluid collections within the left breast. 2. A 13 x 9 cm loculated fluid collection within the right lateral breast/axilla. This favors a postoperative seroma but is nonspecific. 3. Increase in number of the multiple bilateral pulmonary nodules. Some of these demonstrate a groundglass halo and are irregular in appearance. These are nonspecific but may be due to inflammatory/infectious change. Metastatic disease cannot be excluded. Therefore, continued follow is recommended. There are also patchy groundglass densities within the lung bases which likely represents mild inflammatory/infectious change. 4. Increase in size in a single mildly enlarged right axillary lymph node." Unfortunately, the patient did have extravasation of the chemotherapy from her medical port into the contralateral breast which led to significant morbidity of the left breast which is currently improving. Due to the complications from chemotherapy treatment, Dr. Camargo has recommended that the patient proceed with radiation therapy followed by chemotherapy. The patient did have a repeat CT of the thorax on 01/13/2017 which revealed: "IMPRESSION: 1. Progressively worsened soft tissue edema about the left breast with progressive skin thickening now extending into the inferior left breast. No drainable loculated fluid collections of the left breast identified. There is decreased amount of deep tissue air about the left breast with only small focus seen just superior to the port hub. 2. Unchanged circumscribed fluid collection of the right lateral breast/axillary region, 11.2 x 9.6 cm. Again, this suggests a postoperative seroma. 3. Improved aeration of the lung bases suggest resolving infectious or inflammatory pneumonitis. 4. Multiple bilateral indeterminate pulmonary nodules are again seen, most of which measure in the 3-4 mm range. Enlargement of a spiculated 7 mm pulmonary nodule of the right lower lobe as above, suspicious for metastatic disease. Attention at follow-up recommended. 5. Unchanged size of a mildly enlarged right subpectoral lymph node, previously demonstrating hypermetabolic activity on comparison PET suggesting metastasis." We are now seeing the patient in consultation discussed role of radiation therapy. In general, the patient continues to improve overall with her left breast. Since surgery, she has had no issues in her right breast. She has no other complaints. She received 1 dose of chemotherapy and unfortunately had extravasation which led to breast edema with necrosis on the left. She then returned to our office and began radiation therapy. This was to the right breast, supraclavicular area , and axilla. She received 5640 cGy. Treatment was stopped on 03/30/2017. She had extensive skin reaction. She was admitted due to septic shock. Decision was made to stop treatment. Interim History During her hospitalization the decision was made to stop treatment. The skin of the breast steadily healed on the right. She had hyperpigmentation and dry desquamation and this was followed also by the wound clinic. She currently denies any pain in her breast. She did develop a seroma again in the upper tail of the breast. This previously has been drained twice. The fluid is moving more towards the axilla. She continues care of the left breast by the wound clinic there is a wound VAC in place. This is evaluated 3 times a week. Throughout the hospitalization and following discharge she has had decreased appetite. She has lost approximately 40 pounds. Allergies Coded Allergies: Nitroglycerin (Verified Allergy, Intermediate, BP Decreases, HR Increases , 04/22/17) REACTION WITH SUBLINGUAL PER RECORDS Home Medications Scheduled Albuterol Hfa (Ventolin Hfa), 1-2 PUFFS INH Q4-6H Anastrozole (Anastrozole), 1 MG PO DAILY Aspirin (Aspirin), 81 MG PO QAM Calcium Carbonate-Vitamin D (Calcium + D), 1 TAB PO BID Fluticasone Propionate (Inhala (Flovent Diskus), 2 PUFFS INH BID Furosemide (Lasix), 40 MG PO DAILY Levofloxacin (Levaquin), 500 MG PO DAILY Metoprolol Succinate (Metoprolol Succinate ER), 50 MG PO TID Pantoprazole (Protonix), 40 MG PO QAM Polyethylene Glycol 3350 (Miralax), 17 GM PO prn Ranitidine (Zantac), 150 MG PO HS Rosuvastatin Calcium (Crestor), 40 MG PO HS Warfarin Sodium (Coumadin), 1 MG PO 4XWK Warfarin Sodium (Coumadin), 2 MG PO 3XWK Scheduled PRN Metoclopramide (Reglan), 5 MG PO QPM PRN for Dyspepsia Review of Systems Gastrointestinal: Symptoms: Constipation GI Comments: Has to limit salt intake which has changed her food choices; Oral: Symptoms: No Problems Other Oral Symptoms: Constipation manageable at home; Respiratory: Symptoms: WNL Urinary: Symptoms: WNL Skin: Other Skin Symptoms: See below notations Breast: Right Upper Arm Measurement: 34.0 Right Mid Arm Measurement: 25.3 Right Wrist Measurement: 15.5 Left Upper Arm Measurement: 30.8 Left Mid Arm Measurement: 25.5 Left Wrist Measurement: 16.0 Arm Dominence: Right Physical Exam Vital Signs Date Time Temp Pulse Resp B/P (MAP) Pulse Ox O2 Delivery O2 Flow Rate FiO2 06/02/17 14:13 37.0 72 24 90/60 100 Fatigue: None General Appearance: no apparent distress Eyes: normal inspection, EOMI ENT: normal ENT inspection, hearing grossly normal Neck: no adenopathy, thyroid normal Respiratory/Chest: lungs clear, no respiratory distress, no accessory muscle use Breast: Breast examination reveals well-healed incisions of the right breast. There is resolving hyperpigmentation. There is a large seroma in the upper outer quadrant that extends towards the axilla. This is nontender. There are no masses and no axillary adenopathy. There is mild edema. Using the [place] score cosmesis she has a fair outcome. Left breast shows a wound VAC in place. There is no erythema of the periphery. She has no axillary adenopathy. Cardiovascular: regular rate, rhythm, no gallop, no murmur Neurologic/Psychiatric: no motor/sensory deficits, alert, normal mood/affect Skin: warm/dry Pain Management Patient Reports Pain: No Pain Management Plan She denies pain therefore requires no pain management. Laboratory Laboratory Results: not applicable Pathology Pathology Results: not applicable Imaging Imaging Studies: not applicable Assessment & Plan Plan: Patient is also seen and examined by Dr. Klein. We are going to refer her back to Dr. Chrissie Jackson for aspiration of the seroma. She continues follow-up with Dr. Groves at the wound clinic for the left breast. She will continue follow-up with medical oncology and continues on her antiestrogen therapy. Today we completed a cancer survivorship care plan. A copy of the document was given to the patient. She was given a survivorship booklet. We discussed that in the future she will have recheck mammography. At this time we are going to postpone scheduling until after her next follow-up visit. We asked her to return to our office in 3 months. She may call if she has any questions or concerns in the interim. Assessment & Plan (Attending) I agree with note created by Haylie Morales PA-C. I reviewed the patient's chart and information with her. I have examined and evaluated the patient. I reviewed relevant clinical information and answered the patient's and/or family' s questions. INSULATION HOSEMAN Total Time In Follow-Up I spent 20 minutes speaking to the patient and performing examination. I spent 20 minutes reviewing information, preparing the survivorship document, and completing this note. Total Time (Attending) In Follow-Up I spent 15 minutes examining and counseling the patient. INSULATION HOSEMAN Copy To Emanuel Clemons D.O.; Dakotah Camargo D.O.; Lucian Noe M.D. Problem Qualifiers (1) Breast cancer: Breast location: upper outer quadrant of breast Estrogen receptor status: positive Patient sex: female Laterality: right Qualified Codes: C50.411 - Malignant neoplasm of upper-outer quadrant of right female breast; Z17.0 - Estrogen receptor positive status [ER+]
== END | disposition home or self-care (01) ==
LOC: C.ONC 14:02
PROVIDERS: ATTEND Physician Assistant Medical
DX: Z08 Encounter for follow-up examination after completed treatment for malignant neoplasm (principal); Z92.3 Personal history of irradiation; Z85.3 Personal history of malignant neoplasm of breast

== ENCOUNTER → 2017-06-13 | Outpatient (CLI) | payer MEDICARE ==
[~2017-06-13] MED LIST changes: -METROGEL TOP
--- NOTE | 2017-06-13 13:59 | MAMMOGRAPHY REPORT ---
ASPIRATION RIGHT BREAST: 06/13/2017 CLINICAL HISTORY: History of right breast cancer status post lumpectomy with a recurrent seroma at he r lumpectomy bed. PATIENT CONSENT: The procedure and risks of ultrasound-guided aspiration were discussed in full with the patient. Both oral and written consents were obtained. PROCEDURE DESCRIPTION: Preprocedural ultrasound was performed, which showed a large fluid collection at the lumpectomy bed in the right upper outer quadrant, which is predominantly anechoic and contains a few thin internal septations. With ultrasound guidance, aseptic technique, and 1% lidocaine as a local anesthetic, aspiration was performed of the fluid collection at the lumpectomy bed using an 18- gauge needle attached to a syringe. Approximately 205 cc of clear yellow fluid was aspirated and dis carded. Direct pressure was applied to the site immediately post procedure and hemostasis was achiev ed. The patient tolerated the procedure without complication. Postprocedural ultrasound demonstrate s a thin elongated residual hypoechoic fluid collection, which measures approximately 5 mm in thickne ss. COMPARISON: Comparison is made to exams dated: 03/22/2017 aspiration, 03/09/2017 aspiration, 02/01/20 17 aspiration, 11/04/2016 mammogram, 11/04/2016 localization, and 11/04/2016 specimen - [facility]. IMPRESSION: ASPIRATION Ultrasound-guided aspiration of a recurrent seroma at the lumpectomy bed in the right upper outer jaime drant. Approximately 205 cc of clear yellow fluid was aspirated and discarded. Recommend clinical f ollow-up. Janna Loo M.D. ah/:06/13/2017 10:07:17 Appointment Clerk: Minnie Mraquez, [facility]
== END | disposition home or self-care (01) ==
LOC: C.MAMM 09:35
PROVIDERS: ATTEND Physician Assistant Medical
DX: L76.82 Other postprocedural complications of skin and subcutaneous tissue (principal)

== ENCOUNTER → 2017-06-15 | Outpatient (CLI) | payer MEDICARE ==
[~2017-06-15] MED LIST changes: +DOXY100C76 PO; +ERTA1INJ IV; +OPTIRAY 320 IV PRN; +RANI150T85 PO
--- NOTE | 2017-06-15 07:29 | DIAGNOSTIC IMAGING REPORT ---
CT OF THE CHEST WITH IV CONTRAST CLINICAL HISTORY: Left chest wall abscess. COMPARISON STUDY: April 06, 2017 TECHNIQUE: Following the IV administration of 90 mL of Optiray-320, CT of the thorax was performed from the thoracic inlet to the lung bases. Images are reviewed in the axial, sagittal, and coronal planes. IV contrast was administered without complication. A dose lowering technique was utilized adhering to the principles of ALARA. CT DOSE: 284.26 mGy.cm FINDINGS: Thyroid: Imaged portions of the thyroid gland are normal in appearance. Thoracic aorta: The thoracic aorta is normal in course and caliber, noting standard 3-vessel arch anatomy. No aneurysm or dissection is seen. Pulmonary vasculature: The pulmonary trunk is normal in caliber. There are no central filling defects identified to suggest pulmonary embolus. Note that this examination was not protocoled for the evaluation of pulmonary emboli. HEART: The heart is normal in size and configuration, without pericardial effusion. Lungs and pleural spaces: There are no pleural effusions. There are multiple nodular right upper lobe groundglass opacities, likely infectious/inflammatory. In addition there are scattered tiny pulmonary nodules. The largest is located within the right upper lobe measuring 3 mm. Mediastinum: There is no mediastinal lymphadenopathy. Barb: Clear. Axilla: There is no evidence of pathologic adenopathy Upper abdomen: Partially visualized upper abdominal viscera is within normal limits. Skeletal structures: There is a 5 cm cystic mass within the right breast, likely representing a postsurgical seroma. There is an indwelling left-sided A-Port catheter. There is significant left breast skin thickening. There is a left breast edema. There is gas present within the left breast, and there appears to be an open anterior wound. There are no fluid collections to indicate a drainable abscess. IMPRESSION: 1. Scattered tiny solid pulmonary nodules, the largest of which measures 3 mm 2. Interval development of right upper lobe groundglass pulmonary opacities, likely infectious/inflammatory 3. Interval decrease in the size of the 5 cm right breast stroma 4. Open wound involving the anterior aspect of the left breast. There is left breast fluid and edema, and there is gas present within the left breast. The findings are consistent with a left breast infection. There is no current evidence of a drainable abscess. The left breast inflammatory process is contiguous with a left sided A-Port catheter. Electronically signed by: Elie Christie M.D. 06/15/2017 7:28 AM Dictated Date/Time: 06/15/2017 7:18 AM
== END | disposition home or self-care (01) ==
LOC: C.CTS 06:56
PROVIDERS: ATTEND Emergency Medicine
DX: N61.1 Abscess of the breast and nipple (principal); R91.8 Other nonspecific abnormal finding of lung field

== ENCOUNTER → 2017-07-13 | Day surgery (SDC) | payer MEDICARE ==
[2017-07-11 07:46] VITALS: Ht 152.4 cm; Wt 67.3 kg
[~2017-07-13] VITALS: Ht 152.4 cm; Wt 67.3 kg
[~2017-07-13] MED LIST changes: +500ML BSS 0.3ML EPI 1:1000PF IRRIG ONE; +ACETAMINOPHEN 325 MG TAB PO PRN; +AMVISC PLUS 0.8ML SYRINGE INT OCU ONE; -ANAS1TAB6 PO; +ATROPINE SULFATE 0.1 MG/ML 5ML SYR IV PRN; +BSS FLUSH ONE; +ENDOCOAT 0.85ML SYRINGE INT OCU ONE; +EpHEDrine SULFATE INJ 50 MG/ML AMP IV PRN; +EpINEphrine INJ 1MG/ML AMP 1 MG/ML AMP ONE; +LACTATED RINGER'S 1000ML 500 ML IV SCH; -LEVO1TAB34 PO; +LIDOCAINE 4% OP SOLN DROP CHARGE ONE; +LIDOCAINE 4% OP SOLN DROP CHARGE OPR SCH; +LIDOCAINE HCL 1% MPF 2 ML VIAL ONE; +MIDAZOLAM HCL 1 MG/ML 2ML VIAL ONE; +MIX: 4ML BSS 1ML EPI 1:1000 PF TOP ONE; +MOXIFLOXACIN OPH SOLN PER DROP CHARGE ONE; -OPTIRAY 320 IV PRN; +POVIDONE-IODINE OP SOLN 30 ML BTL ONE; +PROPARACAINE 0.5% OP SOLN PER DROP CHARGE OPR SCH; -RANI300T2 PO; +TOBRAMYCIN/DEXAMETHASONE OPH OINT PER APPLN CHARGE ONE
[2017-07-13] MEDS: PHENYLEPHRINE HCL 2.5% OP SOLN PER DROP CHARGE OPR SCH ×3 (06:50→06:54)
[2017-07-13] MEDS: TROPICAMIDE 1% OP SOLN PER DROP CHARGE OPR SCH ×3 (06:51→06:55)
[2017-07-13] MEDS: CYCLOPENTOLATE HCL 1% OP SOLN PER DROP CHARGE OPR SCH ×3 (06:51→06:55)
[2017-07-13] MEDS: MOXIFLOXACIN OPH SOLN PER DROP CHARGE OPR SCH ×3 (06:52→06:56)
--- NOTE | 2017-07-13 07:28 | [facility] Post Operative Brief Note ---
Immediate Operative Summary Operative Date Jul 13, 2017. Pre-Operative Diagnosis Right Eye Cataract Post-Operative Diagnosis Same Procedure(s) Performed Right Cataract Phacoemulsification With Intraocular Lens Implant Surgeon Dr. Alana Georges Medical Detailist Surgeon(s) None Estimated Blood Loss 0 Findings Consistent with Post-Op Diagnosis Specimens Same Anesthesia Type MAC Complication(s) none Disposition Accompanied Pt To Recovery: no Disposition:
--- NOTE | 2017-07-13 07:29 | [facility] Operative Report ---
Operative Report Date of Service Jul 13, 2017. Operative Report DATE OF OPERATION: 07/13/17 PREOPERATIVE DIAGNOSIS: Senile nuclear cataract, right eye POSTOPERATIVE DIAGNOSIS: Senile nuclear cataract, right eye PROCEDURE PERFORMED: Phacoemulsification with intraocular lens implantation, right eye SURGEON: Dr. Andrew Georges ANESTHESIA: Topical with 1% intracameral lidocaine and monitored anesthesia care COMPLICATIONS: None DESCRIPTION OF PROCEDURE: After positively identifying the patient both verbally and by wristband in the preoperative area, the right eye was marked as the operative eye. The patient was then brought back to the operating room by the anesthesia and nursing staff where they were given a drop of Lidocaine and betadine into the operative eye. They were then sterilely prepped and draped in the standard fashion typical for ophthalmic surgery. Steri-strips were placed along the upper eyelids to keep the lashes back, and a lid speculum was placed into the operative eye. At this point, a documented time out was performed with members of the ophthalmology, nursing, and anesthesia staffs all agreeing upon the correct patient, correct location for surgery, correct procedure, and correct type and power of intraocular lens to be implanted. The microscope was then swung into position. First, a paracentesis wound was made using a sideport blade. Then, in sequence, 1% preservative-free lidocaine followed by Endocoat viscoelastic was injected into the anterior chamber. Next , the main incision was made with a keratome blade in triplanar fashion. A sharp cystotome was introduced into the eye and used to create a tear in the anterior capsule, which was directed into a continuous curvilinear capsulorrhexis using Utrata forceps. Hydrodissection was then performed with BSS on a flat-tip cannula. Next, the phacoemulsification handpiece was introduced into the eye and used to remove the nucleus in a [id number] fashion. This was done without complication and then the irrigation-aspiration handpiece was introduced into the eye and used to remove all remaining cortical and epinuclear material. Amvisc was then injected into the anterior chamber as well as into the capsular bag and using the lens injector system, an MX60 20.5 D lens, serial number [id number], and expiration date 01/2020 was injected into the capsular bag and rotated into the correct position. Next, the irrigation- aspiration handpiece was used to remove all remaining Amvisc. BSS was used to hydrate the main wound, and then BSS was injected into the paracentesis site to reach physiologic pressure and then the main wound was checked and found to be watertight. The patient was given drops of Vigamox and Tobradex ointment into the operative eye, and then the surrounding area was cleaned and dried. A clear plastic shield was placed over the eye and the patient was then sat up and taken from the operating room by the anesthesia staff having tolerated the procedure well and suffering no complications. DISPOSITION: The patient was returned to the recovery room in stable condition. I attest to the content of the Intraoperative Record and any orders documented therein. Any exceptions are noted below.
--- NOTE | 2017-07-13 07:30 | Discharge Instructions-SurgCtr ---
Discharge Instructions Date of Service Jul 13, 2017. Visit Reason for Visit: Cataract Right Eye Discharge Discharge Diagnosis / Problem: right cataract Discharge Goals Goal(s): Decrease discomfort, Improve function Activity Recommendations Activity Limitations: as noted below Anesthesia . Post Anesthesia Instructions: If you have had General Anesthesia or IV Sedation: * Do not drive today. * Resume driving when surgeon permits. * Do not make important decisions or sign legal documents today. * Call surgeon for: 1. Temperature elevations greater than 101 degrees F. 2. Uncontrollable pain. 3. Excessive bleeding. 4. Persistent nausea and vomiting. 5. Medication intolerance (nausea, vomiting or rash). * For nausea and vomiting use only clear liquids such as: tea, soda, bouillon until nausea subsides, then gradually increase diet as tolerated. * If you have any concerns or questions, call your surgeon's office. If physician is unavailable and it is an emergency, call 911 or go to the nearest emergency room. . Instructions / Follow-Up Instructions / Follow-Up ACTIVITY RECOMMENDATIONS: * Light activities. * You may walk outside, read, watch television. * You may notice redness on the white part of the eye and some blurry vision - this is normal. MEDICATIONS: Resume previous medications unless instructed otherwise by your surgeon. Start all eye drops at 9:30 am today: * Eye drops (today): Prednisone - one drop in operative eye every 2 hours while awake Ofloxacin - one drop in operative eye every 2 hours while awake Ketorolac - one drop in operative eye 4 times daily SPECIAL CARE INSTRUCTIONS: * Tape plastic shield over eye to sleep at night. Call your doctor at with any concerns or problems. FOLLOW UP VISIT: Follow-up with Dr Georges at [facility] as scheduled. Diet Recommendations Home Diet: no limitations Procedures Procedures Performed: Right Cataract Phacoemulsification With Intraocular Lens Implant Pending Studies Studies pending at discharge: no Medical Emergencies . Who to Call and When: Medical Emergencies: If at any time you feel your situation is an emergency, please call 911 immediately. . Non-Emergent Contact Non-Emergency issues call your: Surgeon . . "Provider Documentation" section prepared by Andrew Georges. .
[2017-07-13 07:31] VITALS: TEMP 36.4
--- NOTE | 2017-07-13 07:43 | Anesthesia Progress Nt - [facility] ---
Anesthesia Post Op Note Date & Time Jul 13, 2017 at 07:42 Vital Signs Pain Intensity: 0 Vital Signs Past 12 Hours Date Time Temp Pulse Resp B/P (MAP) Pulse Ox O2 Delivery O2 Flow Rate FiO2 07/13/17 06:29 36.5 74 20 164/67 (99) 99 Room Air Notes Mental Status: alert / awake / arousable, participated in evaluation Pt Amnestic to Procedure: Yes Nausea / Vomiting: adequately controlled Pain: adequately controlled Airway Patency, RR, SpO2: stable & adequate BP & HR: stable & adequate Hydration State: stable & adequate Anesthetic Complications: no major complications apparent
[2017-07-13 08:02] VITALS: BP 169/83; PULSE 67; O2SAT 97
== END | disposition home or self-care (01) ==
LOC: X.SURG 06:06
PROVIDERS: ATTEND Ophthalmology
DX: E11.36 Type 2 diabetes mellitus with diabetic cataract (principal); H25.11 Age-related nuclear cataract, right eye; J45.909 Unspecified asthma, uncomplicated; J44.9 Chronic obstructive pulmonary disease, unspecified; I10 Essential (primary) hypertension; I25.10 Atherosclerotic heart disease of native coronary artery without angina pectoris; Z87.891 Personal history of nicotine dependence; Z90.49 Acquired absence of other specified parts of digestive tract; Z88.1 Allergy status to other antibiotic agents; E66.9 Obesity, unspecified; Z68.29 Body mass index [BMI] 29.0-29.9, adult; Z85.3 Personal history of malignant neoplasm of breast; Z95.1 Presence of aortocoronary bypass graft; Z79.899 Other long term (current) drug therapy; Z79.82 Long term (current) use of aspirin; Z79.01 Long term (current) use of anticoagulants

== ENCOUNTER → 2017-07-26 | Outpatient (CLI) | payer MEDICARE ==
[~2017-07-26] MED LIST changes: -500ML BSS 0.3ML EPI 1:1000PF IRRIG ONE; -ACETAMINOPHEN 325 MG TAB PO PRN; -AMVISC PLUS 0.8ML SYRINGE INT OCU ONE; -ATROPINE SULFATE 0.1 MG/ML 5ML SYR IV PRN; -BSS FLUSH ONE; -ENDOCOAT 0.85ML SYRINGE INT OCU ONE; -EpHEDrine SULFATE INJ 50 MG/ML AMP IV PRN; -EpINEphrine INJ 1MG/ML AMP 1 MG/ML AMP ONE; -LACTATED RINGER'S 1000ML 500 ML IV SCH; -LIDOCAINE 4% OP SOLN DROP CHARGE ONE; -LIDOCAINE 4% OP SOLN DROP CHARGE OPR SCH; -LIDOCAINE HCL 1% MPF 2 ML VIAL ONE; -MIDAZOLAM HCL 1 MG/ML 2ML VIAL ONE; -MIX: 4ML BSS 1ML EPI 1:1000 PF TOP ONE; -MOXIFLOXACIN OPH SOLN PER DROP CHARGE ONE; -POVIDONE-IODINE OP SOLN 30 ML BTL ONE; -PROPARACAINE 0.5% OP SOLN PER DROP CHARGE OPR SCH; -TOBRAMYCIN/DEXAMETHASONE OPH OINT PER APPLN CHARGE ONE; -WARF1TAB PO
[2017-07-26 11:39] LABS: BASO % 0.7 %; BASO ABS # 0.05 K/uL (0-0.2); EOS % 12.8 %; EOS ABS # 0.95 K/uL (0-0.5); HEMATOCRIT 30.6 % (37-47); IG# 0.02 K/uL (0.00-0.02); LYMPH % 16.6 %; LYMPH ABS # 1.23 K/uL (1.2-3.4); MEAN CELL VOLUME 87.7 fL (80-100); MEAN CORPUSCULAR HEMOGLOBIN 28.7 pg (25-34); MEAN CORPUSCULAR HGB CONC 32.7 g/dl (32-36); MEAN PLATELET VOLUME 8.9 fL (7.4-10.4); MONO % 8.8 %; MONO ABS # 0.65 K/uL (0.11-0.59); NEUT % 60.8 %; PLATELET COUNT 228 K/uL (130-400); RED CELL DISTRIBUTION WIDTH CV 14.5 % (11.5-14.5); RED CELL DISTRIBUTION WIDTH SD 46.3 fL (36.4-46.3)
[2017-07-26 11:57] LABS: ALBUMIN 2.4 gm/dl (3.4-5.0); ALT/SGPT 20 U/L (12-78); AST/SGOT 26 U/L (15-37); BLOOD UREA NITROGEN 17 mg/dl (7-18); CALCIUM 8.5 mg/dl (8.5-10.1); CARBON DIOXIDE 28 mmol/L (21-32); CREATININE 1.03 mg/dl (0.60-1.20); GLUCOSE 74 mg/dl (70-99); POTASSIUM 3.4 mmol/L (3.5-5.1); SODIUM 141 mmol/L (136-145)
[2017-07-26 12:00] LABS: ALKALINE PHOSPHATASE 92 U/L (45-117); TOTAL PROTEIN 6.4 gm/dl (6.4-8.2)
== END | disposition home or self-care (01) ==
LOC: C.LABSPEC 11:24
PROVIDERS: ATTEND Internal Medicine Infectious Disease
DX: Z79.2 Long term (current) use of antibiotics (principal); Z79.899 Other long term (current) drug therapy

== ENCOUNTER → 2017-08-02 | Day surgery (SDC) | payer MEDICARE ==
[2017-07-18 10:47] VITALS: Ht 152.4 cm; Wt 67.3 kg
[~2017-08-02] VITALS: Ht 152.4 cm; Wt 67.3 kg
[~2017-08-02] MED LIST changes: +ATROPINE SULFATE 0.1 MG/ML 5ML SYR IV PRN; +BACITRACIN OINT 15 GM TUBE ONE; +BUPIVACAINE/EPINEPHRINE 0.5% MPF 1:200,000 30 ML VIAL ONE; +EpHEDrine SULFATE INJ 50 MG/ML AMP IV PRN; +FENTANYL CITRATE INJ 50 MCG/1 ML 2 ML VIAL IV PRN; +FENTANYL CITRATE INJ 50 MCG/1 ML 2 ML VIAL ONE; +HYDROCODONE/ACETAMIN 5/325MG TAB PO PRN; +IBUPROFEN 600 MG TAB PO PRN; +LACTATED RINGER'S 1000ML 1,000 ML IV SCH; +LIDOCAINE HCL 2% 2 ML VIAL (20MG/ML) ONE; +ONDANSETRON INJ 2 MG/ML 2 ML VIAL IV PRN; +ONDANSETRON INJ 2 MG/ML 2 ML VIAL ONE; +PROPOFOL IV EMULSION 10 MG/ML 20 ML VIAL ONE; +SODIUM CHLORIDE 0.9% 1000ML 1,000 ML IV SCH
--- NOTE | 2017-08-02 09:39 | History & Physical Bridge Note ---
H&P Re-Evaluation Bridge Note: I have examined the patient, reviewed the History & Physical and in the interval since the performance of the History & Physical I have noted the following changes of clinical significance: Dr. De La O from ID requested PICC line also be removed. pt concerned with recurrence of her right breast seroma. has been drained 4-5 times by radiology. will drain again today and place drain for home in hopes of resolving. discussed risks. pt agreeable.
--- NOTE | 2017-08-02 10:37 | Discharge Instructions-[facility] ---
Discharge Instructions Date of Service August 02, 2017. Visit Reason for Visit: Port Catheter In Place Discharge Discharge Diagnosis / Problem: 1. desire for picc and mediport removal 2. recurrent breast seroma Discharge Goals Goal(s): Decrease discomfort, Improve function, Therapeutic intervention Medications Stopped Medications Name(s): Coumadin stopped x 5 days. started lovenox 3 days ago. Activity Recommendations Activity Limitations: as noted below Lifting Limitations: until after follow-up appointment Exercise/Sports Limitations: until after follow-up appointment May Resume Sexual Activity: after follow-up appointment Shower/Bathe: tomorrow Anesthesia . Post Anesthesia Instructions: If you have had General Anesthesia or IV Sedation: * Do not drive today. * Resume driving when surgeon permits. * Do not make important decisions or sign legal documents today. * Call surgeon for: 1. Temperature elevations greater than 101 degrees F. 2. Uncontrollable pain. 3. Excessive bleeding. 4. Persistent nausea and vomiting. 5. Medication intolerance (nausea, vomiting or rash). * For nausea and vomiting use only clear liquids such as: tea, soda, bouillon until nausea subsides, then gradually increase diet as tolerated. * If you have any concerns or questions, call your surgeon's office. If physician is unavailable and it is an emergency, call 911 or go to the nearest emergency room. . Instructions / Follow-Up Instructions / Follow-Up may use tylenol or ibuprofen as needed for any discomfort. change dressings with gauze and tape as needed. call [phone] for any questions or concerns. Diet Recommendations Home Diet: resume previous diet Procedures Procedures Performed: 1. removal mediport 2. removal picc line 3. drainage seroma of breast Pending Studies Studies pending at discharge: no Medical Emergencies . Who to Call and When: Medical Emergencies: If at any time you feel your situation is an emergency, please call 911 immediately. . Non-Emergent Contact Non-Emergency issues call your: Primary Care Provider, Surgeon Call Non-Emergent contact if: temperature is above 101, wound has increased drainage, wound has increased redness, wound has increased pain . . "Provider Documentation" section prepared by Emanuel Clemons. .
--- NOTE | 2017-08-02 12:07 | [facility] Post Operative Brief Note ---
Immediate Operative Summary Operative Date August 02, 2017. Pre-Operative Diagnosis Desire for removal of Mediport Desire for removal of PICC line Recurrent of seroma Right breast Post-Operative Diagnosis Same as pre-op Procedure(s) Performed Removal Of Mediport, Left chest Removal PICC line, Left arm Drainage Right Breast Seroma Surgeon High Lighter Surgeon(s) None Estimated Blood Loss 5ML Findings Consistent with Post-Op Diagnosis Specimens None Anesthesia Type MAC Complication(s) none
[2017-08-02 12:16] VITALS: TEMP 36.3
--- NOTE | 2017-08-02 12:41 | Anesthesia Progress Nt - [facility] ---
Anesthesia Post Op Note Date & Time August 02, 2017 at 12:40 Vital Signs Pain Intensity: 0 Vital Signs Past 12 Hours Date Time Temp Pulse Resp B/P (MAP) Pulse Ox O2 Delivery O2 Flow Rate FiO2 08/02/17 09:20 36.4 65 18 167/78 (107) 100 Room Air Notes Mental Status: alert / awake / arousable, participated in evaluation Pt Amnestic to Procedure: Yes Nausea / Vomiting: adequately controlled Pain: adequately controlled Airway Patency, RR, SpO2: stable & adequate BP & HR: stable & adequate Hydration State: stable & adequate Anesthetic Complications: no major complications apparent
[2017-08-02 13:16] VITALS: BP 186/93; PULSE 61; O2SAT 98
--- NOTE | 2017-08-02 14:13 | [facility] Operative Report ---
Operative Report Operative Date August 02, 2017. Pre-Operative Diagnosis Desire for removal of Mediport Desire for removal of PICC line Recurrent of seroma Right breast Post-Operative Diagnosis Same as pre-op Procedure(s) Performed Removal Of Mediport, Left chest Removal PICC line, Left arm Drainage/debridement Right Breast Seroma Surgeon Debarker Operator Surgeon(s) None Estimated Blood Loss 5ML Specimens None Anesthesia Type MAC Complication(s) none Description of Procedure After informed consent was obtained the patient was taken the operating room placed in supine position. IV sedation was administered by anesthesia and titrated to effect. After adequate sedation the entire upper half of the chest on both sides was sterilely prepped and draped in usual fashion. We had taken down her dressing and packing out of her open wound and covered this with iodoform prior to prepping. I began with the left subclavian Mediport. I used Marcaine with epinephrine to create a skin wheal over top of the palpable port. I then made a horizontal incision through her old scar line. I carried this down through the soft tissue using electrocautery. Once I encountered the port itself I was able to identify the Ethibond stitches and cut them with a suture scissor. After taking down the capsule and freeing up the port I was able to easily remove this without any tension. It was discarded and pressure was held for several minutes. The wound was then thoroughly irrigated. There was adequate hemostasis. I closed the deep layers with 3-0 Vicryl and the skin with 3-0 Prolene in simple interrupted fashion. Antibiotic ointment and a sterile dressing was applied. We then repacked her wound with some Surgicel and gauze and tape as well. She will be getting a new VAC placed on it tomorrow. My attention then turned to her recurrent right breast seroma. I created a skin wheal over top of the palpable seroma. A curvilinear incision was made and this was carried down through the soft tissue using electrocautery. We readily encountered several 100 cc of clear yellow serous fluid. Once I suctioned the cavity completely dry I then debrided all of the smooth lining of the seroma cavity in hopes that it would heal shut. Once I debrided all the smooth lining of the cavity I then brought a 7 [place] DAVI drain from a separate stab site and place it into the cavity itself. I then closed the cavity in multiple layers using 3-0 Vicryl for the deeper layers and 3-0 Monocryl in running fashion for the skin. Benzoin and op sites were applied as a dressing. The drain was sutured in using 3-0 nylon. A drain sponge was placed around that as well I then took off the bandage over her left arm PICC line. I was able to easily remove the PICC line without difficulty we cleaned it with alcohol swab and placed a bandage over it. The patient was then awakened and transferred to recovery in stable condition I attest to the content of the Intraoperative Record and any orders documented therein. Any exceptions are noted below.
== END | disposition home or self-care (01) ==
LOC: X.SURG 08:39
PROVIDERS: ATTEND Surgery
DX: C50.919 Malignant neoplasm of unspecified site of unspecified female breast (principal); K21.9 Gastro-esophageal reflux disease without esophagitis; I25.10 Atherosclerotic heart disease of native coronary artery without angina pectoris; I65.29 Occlusion and stenosis of unspecified carotid artery; I50.9 Heart failure, unspecified; J44.9 Chronic obstructive pulmonary disease, unspecified; E11.9 Type 2 diabetes mellitus without complications; E78.01 Familial hypercholesterolemia; K31.84 Gastroparesis; I11.0 Hypertensive heart disease with heart failure; Z86.711 Personal history of pulmonary embolism; Z79.01 Long term (current) use of anticoagulants; Z87.891 Personal history of nicotine dependence; Z80.1 Family history of malignant neoplasm of trachea, bronchus and lung; Z79.52 Long term (current) use of systemic steroids; Z79.899 Other long term (current) drug therapy

== ENCOUNTER → 2017-10-20 | Outpatient (CLI) | payer MEDICARE ==
[~2017-10-20] MED LIST changes: -ATROPINE SULFATE 0.1 MG/ML 5ML SYR IV PRN; -BACITRACIN OINT 15 GM TUBE ONE; -BUPIVACAINE/EPINEPHRINE 0.5% MPF 1:200,000 30 ML VIAL ONE; -ERTA1INJ IV; -EpHEDrine SULFATE INJ 50 MG/ML AMP IV PRN; -FENTANYL CITRATE INJ 50 MCG/1 ML 2 ML VIAL IV PRN; -FENTANYL CITRATE INJ 50 MCG/1 ML 2 ML VIAL ONE; -HYDROCODONE/ACETAMIN 5/325MG TAB PO PRN; -IBUPROFEN 600 MG TAB PO PRN; -LACTATED RINGER'S 1000ML 1,000 ML IV SCH; -LIDOCAINE HCL 2% 2 ML VIAL (20MG/ML) ONE; -ONDANSETRON INJ 2 MG/ML 2 ML VIAL IV PRN; -ONDANSETRON INJ 2 MG/ML 2 ML VIAL ONE; -PROPOFOL IV EMULSION 10 MG/ML 20 ML VIAL ONE; -SODIUM CHLORIDE 0.9% 1000ML 1,000 ML IV SCH; +WARF1TAB PO
[2017-10-20 13:05] LABS: INR 1.6 (0.9-1.1)
[2017-10-20 13:28] LABS: BLOOD UREA NITROGEN 21 mg/dl (7-18); CALCIUM 9.1 mg/dl (8.5-10.1); CARBON DIOXIDE 25 mmol/L (21-32); GLUCOSE 86 mg/dl (70-99); POTASSIUM 4.2 mmol/L (3.5-5.1); SODIUM 140 mmol/L (136-145)
== END | disposition home or self-care (01) ==
LOC: C.LABBC 10:07
PROVIDERS: ATTEND Internal Medicine
DX: Z79.01 Long term (current) use of anticoagulants (principal); E87.6 Hypokalemia

== ENCOUNTER 2017-11-21 09:17 | Emergency (ER) | payer MEDICARE ==
[~2017-11-21] VITALS: Ht 152.4 cm; Wt 67.5 kg
[2017-11-21 09:25] VITALS: TEMP 36.6; Ht 152.4 cm; Wt 67.5 kg
[2017-11-21] MEDS ORDERED: RANI300T2 PO (10:58)
[2017-11-21] MEDS ORDERED: WARF1TAB PO (10:58)
[2017-11-21] MEDS ORDERED: ANAS1TAB7 PO (10:58)
[2017-11-21] MEDS ORDERED: LCTX PO (10:58)
[2017-11-21] MEDS ORDERED: WARF2TAB PO (10:58)
[2017-11-21 11:36] LABS: BASO % 0.5 %; BASO ABS # 0.03 K/uL (0-0.2); EOS % 14.7 %; EOS ABS # 0.84 K/uL (0-0.5); HEMATOCRIT 32.5 % (37-47); HEMOGLOBIN 10.5 g/dL (12.0-16.0); IG# 0.01 K/uL (0.00-0.02); LYMPH % 13.6 %; LYMPH ABS # 0.78 K/uL (1.2-3.4); MEAN CELL VOLUME 90.8 fL (80-100); MEAN CORPUSCULAR HEMOGLOBIN 29.3 pg (25-34); MEAN CORPUSCULAR HGB CONC 32.3 g/dl (32-36); MEAN PLATELET VOLUME 9.3 fL (7.4-10.4); NEUT ABS # 3.67 K/uL (1.4-6.5); PLATELET COUNT 214 K/uL (130-400); RED CELL DISTRIBUTION WIDTH CV 14.7 % (11.5-14.5); RED CELL DISTRIBUTION WIDTH SD 48.9 fL (36.4-46.3); WHITE BLOOD COUNT 5.73 K/uL (4.8-10.8)
--- NOTE | 2017-11-21 11:45 | EMERGENCY ROOM VISIT NOTE ---
History First contact with patient: 09:50 Chief Complaint: LEG PAIN,LEG INJURY Stated Complaint: LEFT KNEE PAIN, BUISING History of Present Illness The patient is a 81 year old female who presents to the Emergency Room with complaints of left lower extremity swelling and bruising. [place] When she crawled into bed last night she noticed pain and swelling of the leg. She turned on the light and realized that it was black and blue. She does take Coumadin. She denies any acute injury to the leg. She has been walking on the leg. She does have a history of breast cancer and is currently taking oral chemotherapy. She denies chest pain, shortness of breath, fever or cough. Patient was not met expressed yesterday and had x-rays obtained that were negative for fracture. She has not evaluated her INR since [place]. Review of Systems See HPI for pertinent positives & negatives. A total of 10 systems reviewed and were otherwise negative. Past Medical/Surgical History Medical Problems: (1) AGUSTIN (acute kidney injury) (2) Anemia (3) Anticoagulants,Lt,Current Use (4) Asthma, Unspecified, W (Acute) Exacerbation (5) Bilateral pulmonary embolism (6) Bleeding from open wound of chest wall (7) Breast cancer (8) CHF (congestive heart failure) (9) Hypertension Nos (10) Near syncope (11) Old Myocardial Infarct (12) Open wound of chest (wall), complicated (13) Oth Pulmon Embolism/Infarct (14) Wound of left breast Surgical Problems: (1) History of knee replacement Family History Cancer Diabetes mellitus Myocardial infarction Social History Smoking Status: Never Smoker Alcohol Use: none Drug Use: none Marital Status: Housing Status: lives alone Occupation Status: retired Current/Historical Medications Scheduled Anastrozole (Anastrozole), 1 TAB PO DAILY Aspirin (Aspirin), 81 MG PO QAM Calcium Carbonate-Vitamin D (Calcium + D), 1 TAB PO BID Doxycycline Monohydrate (Monodox), 100 MG PO BID Fluticasone Propionate (Inhala (Flovent Diskus), 2 PUFFS INH BID Furosemide (Lasix), 20 MG PO QAM Lactobacillus Acidophilus (Lactinex), 1 TAB PO TIDM Metoprolol Succinate (Metoprolol Succinate ER), 50 MG PO TID Pantoprazole (Protonix), 40 MG PO QAM Ranitidine (Zantac), 300 MG PO HS Rosuvastatin Calcium (Crestor), 40 MG PO HS Warfarin Sodium (Coumadin), 2 MG PO DIRECTED Warfarin Sodium (Coumadin), 1 TAB PO DIRECTED Scheduled PRN Albuterol Hfa (Ventolin Hfa), 1-2 PUFFS INH Q4-6H PRN for Shortness of Breath Metoclopramide (Reglan), 5 MG PO QPM PRN for Dyspepsia Polyethylene Glycol 3350 (Miralax), 17 GM PO DAILY PRN for Constipation Physical Exam Vital Signs Date Time Temp Pulse Resp B/P (MAP) Pulse Ox O2 Delivery O2 Flow Rate FiO2 11/21/17 13:30 84 20 98 11/21/17 12:51 82 20 132/62 98 Room Air 11/21/17 09:25 36.6 84 18 131/53 96 Room Air Physical Exam Vital signs reviewed. General: Well-appearing 81-year-old female, in no significant distress. HEENT: No scleral icterus, PERRLA, neck supple. Atraumatic. Cardiovascular: Regular rate and rhythm, no extra sounds. Breast: Left proximal breast/upper chest wall with significant scarring and a chronically healing wound. There is an approximate 3 cm area of open skin under and Aquacel dressing. No acute cellulitic change or significant drainage. Pulmonary: Clear to auscultation bilaterally, normal work of breathing. Abdomen: Soft, nontender, nondistended, positive bowel sounds. Musculoskeletal: Atraumatic, 2+ edema to the left lower extremity, most significant lead to the distal thigh and popliteal region. The majority of the extremity from the inguinal fold to the distal calf has significant ecchymotic change. There is no acute wound or drainage. Neurologic: Patient awake alert and oriented x 3 Skin: Warm, dry, no rash Medical Decision & Procedures Laboratory Results 11/21/17 11:20 Red Blood Count 3.58, Mean Corpuscular Volume 90.8, Mean Corpuscular Hemoglobin 29.3, Mean Corpuscular Hemoglobin Concent 32.3, Mean Platelet Volume 9.3, Neutrophils (%) (Auto) 64.0, Lymphocytes (%) (Auto) 13.6, Monocytes (%) (Auto) 7.0, Eosinophils (%) (Auto) 14.7, Basophils (%) (Auto) 0.5, Neutrophils # (Auto ) 3.67, Lymphocytes # (Auto) 0.78, Monocytes # (Auto) 0.40, Eosinophils # (Auto ) 0.84, Basophils # (Auto) 0.03 11/21/17 11:20 Test 11/21/17 11:20 White Blood Count 5.73 K/uL (4.8-10.8) Red Blood Count 3.58 M/uL (4.2-5.4) Hemoglobin 10.5 g/dL (12.0-16.0) Hematocrit 32.5 % (37-47) Mean Corpuscular Volume 90.8 fL (80-100) Mean Corpuscular Hemoglobin 29.3 pg (25-34) Mean Corpuscular Hemoglobin Concent 32.3 g/dl (32-36) Platelet Count 214 K/uL (130-400) Mean Platelet Volume 9.3 fL (7.4-10.4) Neutrophils (%) (Auto) 64.0 % Lymphocytes (%) (Auto) 13.6 % Monocytes (%) (Auto) 7.0 % Eosinophils (%) (Auto) 14.7 % Basophils (%) (Auto) 0.5 % Neutrophils # (Auto) 3.67 K/uL (1.4-6.5) Lymphocytes # (Auto) 0.78 K/uL (1.2-3.4) Monocytes # (Auto) 0.40 K/uL (0.11-0.59) Eosinophils # (Auto) 0.84 K/uL (0-0.5) Basophils # (Auto) 0.03 K/uL (0-0.2) RDW Standard Deviation 48.9 fL (36.4-46.3) RDW Coefficient of Variation 14.7 % (11.5-14.5) Immature Granulocyte % (Auto) 0.2 % Immature Granulocyte # (Auto) 0.01 K/uL (0.00-0.02) Prothrombin Time 30.8 SECONDS (9.0-12.0) Prothromb Time International Ratio 3.0 (0.9-1.1) Activated Partial Thromboplast Time 44.0 SECONDS (21.0-31.0) Partial Thromboplastin Ratio 1.7 Anion Gap 8.0 mmol/L (3-11) Est Creatinine Clear Calc Drug Dose 40.7 ml/min Estimated GFR () 65.2 Estimated GFR (Non- 56.2 BUN/Creatinine Ratio 16.5 (10-20) Calcium Level 8.4 mg/dl (8.5-10.1) Magnesium Level 2.3 mg/dl (1.8-2.4) Total Bilirubin 0.5 mg/dl (0.2-1) Direct Bilirubin 0.1 mg/dl (0-0.2) Aspartate Amino Transf (AST/SGOT) 23 U/L (15-37) Alanine Aminotransferase (ALT/SGPT) 20 U/L (12-78) Alkaline Phosphatase 79 U/L (45-117) Total Protein 6.5 gm/dl (6.4-8.2) Albumin 2.9 gm/dl (3.4-5.0) Medical Decision Differential diagnosis: DVT, soft tissue hematoma, popliteal cyst, ligamentous injury, muscular strain/tear, bony fracture. This patient was evaluated and appeared to be in no significant distress. IV access was obtained and laboratory work was drawn. Ultrasound of the left lower extremity was performed and is negative for DVT or large hematoma. There is significant soft tissue ecchymosis. INR was obtained and is 3.0. Patient was advised of the findings. A thigh-high Manish stocking was placed and laboratory work was reviewed. The patient was advised to skip her Coumadin 24 hours and apply the Manish stocking when ambulatory. She will follow-up with her primary care physician this week for reevaluation return to the ED for worsening of symptoms or any medical concerns. Medication Reconcilliation Current Medication List: was personally reviewed by me Blood Pressure Screening Patient's blood pressure: Elevated blood pressure Blood pressure disposition: Elevated BP felt to be situational Impression Primary Impression: Abnormal bruising Additional Impressions: Left leg swelling Anticoagulants,Lt,Current Use Departure Information Referrals Pro,Lucian Sawyer M.D. (PCP) Patient Instructions My [facility] Problem Qualifiers
[2017-11-21 11:55] LABS: ALBUMIN 2.9 gm/dl (3.4-5.0); CALCIUM 8.4 mg/dl (8.5-10.1); CREATININE 0.96 mg/dl (0.60-1.20); POTASSIUM 4.1 mmol/L (3.5-5.1); TOTAL PROTEIN 6.5 gm/dl (6.4-8.2)
--- NOTE | 2017-11-21 12:25 | DIAGNOSTIC IMAGING REPORT ---
LEFT LOWER EXTREMITY VENOUS DOPPLER HISTORY: Left leg swelling. COMPARISON STUDY: None. FINDINGS: There is normal compressibility, flow, and augmentation within the left lower extremity deep venous system. IMPRESSION: No DVT within the left lower extremity. Electronically signed by: Jai Blair M.D. 11/21/2017 12:23 PM Dictated Date/Time: 11/21/2017 12:23 PM
--- NOTE | 2017-11-21 12:26 | DIAGNOSTIC IMAGING REPORT ---
LEFT THIGH ULTRASOUND CLINICAL HISTORY: Left leg bruising, coumadin, SQ bleeding COMPARISON STUDY: None. FINDINGS: Real-time sonographic imaging of the left lower extremity was performed with business representative images. There is subcutaneous edema seen throughout the left lower extremity. However, there are no focal fluid collections to suggest a hematoma. IMPRESSION: Subcutaneous edema without hematoma within the left lower extremity. Electronically signed by: Jai Blair M.D. 11/21/2017 12:25 PM Dictated Date/Time: 11/21/2017 12:23 PM
[2017-11-21 12:51] VITALS: BP 132/62
[2017-11-21 13:30] VITALS: PULSE 84; O2SAT 98
== END 2017-11-21 13:30 | disposition home or self-care (01) ==
LOC: C.EDB 09:18 → C.EDC 13:30
DX: M79.81 Nontraumatic hematoma of soft tissue (principal); M79.89 Other specified soft tissue disorders; Z79.01 Long term (current) use of anticoagulants; Z51.81 Encounter for therapeutic drug level monitoring; N17.9 Acute kidney failure, unspecified; J45.901 Unspecified asthma with (acute) exacerbation; I50.9 Heart failure, unspecified; I10 Essential (primary) hypertension; I25.2 Old myocardial infarction

== ENCOUNTER 2020-07-31 00:39 | Observation (INO) ==
[2020-07-31] MEDS: SODIUM CHLORIDE 0.9% 500 ML IV SCH ×2 (01:31→05:45)
[2020-07-31 01:37] LABS: INR 1.8 (0.9-1.1); Prothrombin Time 17.5 Seconds (9.0-12.0)
--- NOTE | 2020-07-31 01:47 | Emergency Department Note ---
History of Present Illness General Chief complaint: Shortness of Breath/Dyspnea Stated complaint: SOB,LEG TURNING BLUE Time Seen by Provider: 07/31/20 01:04 Source: patient Mode of arrival: ambulatory Limitations: no limitations History of Present Illness Provider complaint: Fatigue, dizziness, shortness of breath Onset (ago): day(s) This is an 84-year-old female presents emergency department with her sister complaining of persistent dizziness/lightheadedness, dyspnea on exertion, and fatigue. Patient was seen and evaluated earlier in the day today here due to similar symptoms and concern for increased bruising noted along her right lower extremity. Upon review of this in the EMR, and discussion with the patient at bedside, she had underwent chiropractic manipulation last week which she believes is where the bruising may have began. Patient is anticoagulated due to history of blood clots. It was thought that patient likely had a hematoma which is now migrating down her right lower extremity under the influence of gravity and now appears more distal. Blood work was checked earlier in the day today and did show anemia which the patient states is new. A rectal exam for guaiac testing was negative. Patient was hemodynamically stable throughout and felt stable to be discharged and follow-up closely. Patient states her symptoms are persistent and she does not feel improved and is concerned about her anemia and presented to the emergency room again. Patient denies any chest pain, abdominal pain, black or bloody stools. Denies any numbness or tingling in the right lower extremity. Denies headaches. Denies any syncopal events although stating she is felt "close" with her dizziness. Patient is a slightly difficult historian. Pt seen during a time of high acuity and national emergency pandemic while wearing PPE. Home Medications Medication Instructions Recorded Confirmed Type aspirin 81 mg tablet,delayed 81 mg PO QAM 12/13/17 07/31/20 History release calcium carbonate 600 mg calcium 1 cap PO QAM cap 12/13/17 07/31/20 History (1,500 mg)-vit D3 1,000 unit capsule rosuvastatin 40 mg tablet 40 mg PO HS 12/13/17 07/31/20 History anastrozole 1 mg tablet 1 mg PO QAM 12/13/18 07/31/20 History famotidine 20 mg tablet 20 mg PO HS 04/11/19 07/31/20 History furosemide 20 mg tablet 20 mg PO QAM 12/11/19 07/31/20 History metoclopramide HCl 10 mg tablet 5 mg PO QDD tab 12/11/19 07/31/20 History albuterol sulfate 90 mcg/actuation 2 puff INH Q4H PRN #8.5 gm 02/08/20 07/31/20 Rx aerosol inhaler metoprolol succinate 50 mg 50 mg PO TID #270 tab 04/10/20 07/31/20 Rx tablet,extended release 24 hr potassium chloride 20 mEq 20 meq PO QAM #30 tab 04/22/20 07/31/20 Rx tablet,extended release(part/cryst) pantoprazole 40 mg tablet,delayed 20 mg PO QAM tab 04/24/20 07/31/20 History release fluticasone propionate 230 1 puff INHALATION BID #12 g 05/14/20 07/31/20 Rx mcg-salmeterol 21 mcg/actuation HFA inhaler lidocaine 1 patch TOP DAILY PRN #15 ea 07/26/20 07/31/20 Rx tramadol 50 mg PO Q12H PRN #10 tab 07/26/20 07/31/20 Rx warfarin [Jantoven] 2 mg PO UD 07/26/20 07/31/20 History propylene glycol [Systane Complete] 1 drp OPHTHALMIC (EYE) BID 07/30/20 07/31/20 History Allergies Allergy/AdvReac Type Severity Reaction Status Date / Time nitroglycerin AdvReac Intermediate BP Verified 07/30/20 15:03 Decreases, HR Increases tramadol AdvReac Intermediate faint Unverified 07/30/20 15:03 feeling, mind foggy not able to think Past Med/Surg History Medical History (Updated 07/31/20 @ 06:41 by Va Botello DO) Anemia Asthma Atherosclerotic heart disease of [place] coronary artery without angina pectoris Breast carcinoma, lobular Right. takes Arimidex daily Carotid artery stenosis Chronic obstructive pulmonary disease CKD (chronic kidney disease), stage III Diabetes mellitus, type 2 Diverticular disease Gastroparesis GERD (gastroesophageal reflux disease) HTN (hypertension) Hyperlipidemia LDL goal <100 Multiple pulmonary emboli S/P surgical procedure (~5-10 years ago) reason for warfarin daily Myocardial Infarction [address]. [address] Viera Near syncope Open wound of chest (wall), complicated Open wound of left breast Osteoarthritis Septic shock hx r/t UTI (2018) Systolic CHF, chronic Surgical History H/O vascular surgery port-a-cath insertion History of cardiac cath with stent following CABG with one stent. History of cataract surgery bilateral History of colonoscopy History of coronary artery bypass graft x2 vessels (1994) History of knee replacement History of removal of Port-a-Cath Hx of lumpectomy right breast with lymph node removal S/P cholecystectomy Laprascopic S/P lymph node biopsy right breast & axillary Family History Father Lung cancer Brother Myocardial infarction Prostate cancer Denies family history of Colon cancer Ovarian cancer Breast cancer Social History Smoking Status: Former smoker Tobacco Type: Cigarettes Second Hand Exposure: Yes; Do You Dip or Chew Tobacco: No; Hx Alcohol Use: No Hx Substance Use: Yes Preferred Language: Palestinian Communication Ability: Effective Visual Impairment: No Limitations Hearing Ability: Normal Clinical Rehab Specialist Required: No Beliefs That Will Affect Care: None marital status: / Current Living Situation: Alone current occupational status: retired Other Information That Helps Us Care for You: No Feels Safe at Home: Yes Safety Concerns: Feels Safe At This Time Dental Care, Regularly: Yes Physical Activity Frequency: Does not Exercise Seatbelt Use: always Assistive Devices: Denture - Upper, Denture - Lower, Glasses and Walker Review of Systems See HPI for pertinent positives & negatives. and A total of 10 systems reviewed and were otherwise negative Physical Exam Vital Signs Vital Signs - 24 hr 07/31/20 00:41 07/31/20 01:00 07/31/20 01:06 Temperature 36.4 C L Temperature Source Temporal Artery Scan Pulse Rate 89 86 87 Pulse Rate [Exercises] Respiratory Rate 20 21 24 Respiratory Rate [Exercises] Respiratory Effort / Characteristics Non-Labored Spontaneous Respiratory Depth Normal Respiratory Pattern Blood Pressure 120/58 L 158/58 H Blood Pressure Mean 78 91 Pulse Oximetry 99 Pulse Oximetry [Exercises] Oxygen Delivery Method Room Air Sepsis Recent Fever Within 48 Hours No Sepsis New/Unexplained Change in Mental Status N/A Sepsis Action Taken by Nursing No Action Required 07/31/20 01:08 07/31/20 01:10 07/31/20 01:15 Temperature Temperature Source Pulse Rate 83 84 Pulse Rate [Exercises] Respiratory Rate 18 23 23 Respiratory Rate [Exercises] Respiratory Effort / Characteristics Non-Labored Respiratory Depth Normal Respiratory Pattern Regular Blood Pressure 133/64 Blood Pressure Mean 87 Pulse Oximetry Pulse Oximetry [Exercises] Oxygen Delivery Method Room Air Sepsis Recent Fever Within 48 Hours Sepsis New/Unexplained Change in Mental Status Sepsis Action Taken by Nursing 07/31/20 01:20 07/31/20 01:30 07/31/20 01:45 Temperature Temperature Source Pulse Rate 82 78 79 Pulse Rate [Exercises] Respiratory Rate 31 H 22 20 Respiratory Rate [Exercises] Respiratory Effort / Characteristics Respiratory Depth Respiratory Pattern Blood Pressure 137/53 L 147/58 H Blood Pressure Mean 81 87 Pulse Oximetry Pulse Oximetry [Exercises] Oxygen Delivery Method Sepsis Recent Fever Within 48 Hours Sepsis New/Unexplained Change in Mental Status Sepsis Action Taken by Nursing 07/31/20 02:00 07/31/20 02:15 07/31/20 02:45 Temperature Temperature Source Pulse Rate 77 77 80 Pulse Rate [Exercises] Respiratory Rate 24 21 19 Respiratory Rate [Exercises] Respiratory Effort / Characteristics Respiratory Depth Respiratory Pattern Blood Pressure 128/52 L 124/52 L 134/49 L Blood Pressure Mean 77 76 77 Pulse Oximetry Pulse Oximetry [Exercises] Oxygen Delivery Method Sepsis Recent Fever Within 48 Hours Sepsis New/Unexplained Change in Mental Status Sepsis Action Taken by Nursing 07/31/20 03:00 07/31/20 03:15 07/31/20 03:24 Temperature Temperature Source Pulse Rate 77 75 Pulse Rate [Exercises] 100 H Respiratory Rate 20 20 Respiratory Rate [Exercises] 24 Respiratory Effort / Characteristics Respiratory Depth Respiratory Pattern Blood Pressure 145/57 H 143/56 H Blood Pressure Mean 86 85 Pulse Oximetry Pulse Oximetry [Exercises] 89 L Oxygen Delivery Method Room Air Sepsis Recent Fever Within 48 Hours Sepsis New/Unexplained Change in Mental Status Sepsis Action Taken by Nursing 07/31/20 03:31 07/31/20 03:45 07/31/20 04:15 Temperature Temperature Source Pulse Rate 79 85 83 Pulse Rate [Exercises] Respiratory Rate 22 20 24 Respiratory Rate [Exercises] Respiratory Effort / Characteristics Respiratory Depth Respiratory Pattern Blood Pressure 108/49 L 132/73 132/78 Blood Pressure Mean 68 92 96 Pulse Oximetry 100 100 100 Pulse Oximetry [Exercises] Oxygen Delivery Method Room Air Room Air Room Air Sepsis Recent Fever Within 48 Hours Sepsis New/Unexplained Change in Mental Status Sepsis Action Taken by Nursing GENERAL: alert, well appearing, well nourished, no distress, non-toxic EYE EXAM: normal conjunctiva, PERRL and EOM's grossly intact OROPHARYNX: no exudate, no erythema, lips, buccal mucosa, and tongue normal and mucous membranes are moist NECK: supple, no nuchal rigidity, no adenopathy, non-tender LUNGS: Clear to auscultation. Normal chest wall mechanics, no w/r/r HEART: no murmurs, S1 normal and S2 normal ABDOMEN: abdomen soft, non-tender, normo-active bowel sounds, no masses, no rebound or guarding. BACK: Back is symmetrical on inspection and there is no deformity, no midline tenderness, no CVA tenderness. SKIN: no rashes and no bruising UPPER EXTREMITIES: upper extremities are grossly normal. FROM, nml pulses b/l. LOWER EXTREMITIES: 2+ pitting edema. FROM, nml pulses b/l. Ecchymosis noted tracking along the posterior and lateral aspect of the right lower extremity down to the level of the mid tib-fib area. No joint effusions, compartments soft. Faint evolving ecchymosis noted along the dorsal aspect of the right foot. NEURO EXAM: Normal sensorium, cranial nerves II-XII grossly intact, normal speech, no gross weakness of arms, no gross weakness of legs. Gross sensation intact. Course Course 0302: Updated on results. Patient well appearing at rest. 0340: Updated pt. Discussed prior outpatient records that were obtained through [facility]. Discussed ambulatory trial that was performed. 0409: Discussed with Dr. Loera. Administered Medications Discontinued Medications Furosemide (Furosemide 40 Mg/4 Ml Vial) 20 mg IV NOW STA Stop: 07/31/20 03:45 Last Admin: 07/31/20 03:51 Dose: 20 mg Documented by: [id number] Sodium Chloride (Nss) 500 mls @ 125 mls/hr IV .Q4H ELÍAS Stop: 08/30/20 01:14 Last Admin: 07/31/20 05:45 Dose: Not Given Documented by: [id number] Infusion: 07/31/20 03:51 Dose: 0 mls/hr Documented by: [id number] Admin: 07/31/20 01:31 Dose: 125 mls/hr Documented by: [id number] Medical Decision Making Differential Diagnosis Differential diagnoses includes but is not limited to pneumonia, bronchitis, COPD/Asthma exacerbation, pneumothorax, pulmonary embolism, congestive heart failure, acute coronary syndrome Medical Records Attestation: I reviewed the patient's medical records. Home Medications Current Medication List: was personally reviewed by me Laboratory Data Attestation: I reviewed the patient's lab results. Result diagrams: 07/31/20 01:16 07/31/20 01:16 Lab Results 07/31/20 07/31/20 07/31/20 Range/Units 01:16 01:16 01:16 WBC 8.09 (4.8-10.8) K/uL RBC 2.75 L (4.2-5.4) M/uL Hgb 8.3 L (12.0-16.0) g/dL Hct 25.8 L (37-47) % MCV 93.8 (80-100) fL MCH 30.2 (25-34) pg MCHC 32.2 (32-36) g/dL RDW Std Deviation 52.3 H (36.4-46.3) fL RDW Coeff of Cathy 16.4 H (11.5-14.5) % Plt Count 248 (130-400) K/uL MPV 9.0 (7.4-10.4) fL Immature Gran % (Auto) 0.5 % Neut % (Auto) 67.0 % Lymph % (Auto) 13.8 % [place] % (Auto) 13.1 % Eos % (Auto) 5.4 % Baso % (Auto) 0.2 % Neut # (Auto) 5.41 (1.4-6.5) K/uL Lymph # (Auto) 1.12 L (1.2-3.4) K/uL [place] # (Auto) 1.06 H (0.11-0.59) K/uL Eos # (Auto) 0.44 (0-0.5) K/uL Baso # (Auto) 0.02 (0-0.2) K/uL Immature Gran # (Auto) 0.04 H (0.00-0.02) K/uL Absolute Nucleated RBC 0.07 H (0-0) K/uL Nucleated RBC % (auto) 0.8 % PT 17.5 H (9.0-12.0) Seconds INR 1.8 H (0.9-1.1) Sodium 139 (136-145) mmol/L Potassium 4.2 (3.5-5.1) mmol/L Chloride 109 H (98-107) mmol/L Carbon Dioxide 27 (21-32) mmol/L Anion Gap 3.0 (3-11) BUN 14 (7-18) mg/dl Creatinine 1.03 (0.6-1.2) mg/dl Est Cr Clr Drug Dosing 35.4 ml/min Est GFR ( Amer) 58.6 Est GFR (Non-Af Amer) 50.6 BUN/Creatinine Ratio 14.0 (10-20) Glucose 107 H (70-99) mg/dl Calcium 8.0 L (8.5-10.1) mg/dl Magnesium 2.5 H (1.8-2.4) mg/dl Total Bilirubin 1.6 H (0.2-1) mg/dl AST 31 (15-37) U/L ALT 23 (12-78) U/L Alkaline Phosphatase 69 (45-117) U/L Troponin I < 0.015 (0-0.045) ng/ml NT-Pro-B Natriuret Pep 2108 H (0-1800) pg/ml Total Protein 5.9 L (6.4-8.2) gm/dl Albumin 2.9 L (3.4-5.0) gm/dl Globulin 3.0 (2.5-4.0) gm/dl Albumin/Globulin Ratio 1.0 (0.9-2) TSH 4.100 (0.300-4.500) uIu/ml COVID-19 Eval Order SARS-CoV-2 (PCR) (Negative) Influenza Type A (PCR) (Neg) Influenza Type B (PCR) (Neg) RSV (RT-PCR) (Neg) 07/31/20 07/31/20 Range/Units 03:55 03:55 WBC (4.8-10.8) K/uL RBC (4.2-5.4) M/uL Hgb (12.0-16.0) g/dL Hct (37-47) % MCV (80-100) fL MCH (25-34) pg MCHC (32-36) g/dL RDW Std Deviation (36.4-46.3) fL RDW Coeff of Cathy (11.5-14.5) % Plt Count (130-400) K/uL MPV (7.4-10.4) fL Immature Gran % (Auto) % Neut % (Auto) % Lymph % (Auto) % [place] % (Auto) % Eos % (Auto) % Baso % (Auto) % Neut # (Auto) (1.4-6.5) K/uL Lymph # (Auto) (1.2-3.4) K/uL [place] # (Auto) (0.11-0.59) K/uL Eos # (Auto) (0-0.5) K/uL Baso # (Auto) (0-0.2) K/uL Immature Gran # (Auto) (0.00-0.02) K/uL Absolute Nucleated RBC (0-0) K/uL Nucleated RBC % (auto) % PT (9.0-12.0) Seconds INR (0.9-1.1) Sodium (136-145) mmol/L Potassium (3.5-5.1) mmol/L Chloride (98-107) mmol/L Carbon Dioxide (21-32) mmol/L Anion Gap (3-11) BUN (7-18) mg/dl Creatinine (0.6-1.2) mg/dl Est Cr Clr Drug Dosing ml/min Est GFR ( Amer) Est GFR (Non-Af Amer) BUN/Creatinine Ratio (10-20) Glucose (70-99) mg/dl Calcium (8.5-10.1) mg/dl Magnesium (1.8-2.4) mg/dl Total Bilirubin (0.2-1) mg/dl AST (15-37) U/L ALT (12-78) U/L Alkaline Phosphatase (45-117) U/L Troponin I (0-0.045) ng/ml NT-Pro-B Natriuret Pep (0-1800) pg/ml Total Protein (6.4-8.2) gm/dl Albumin (3.4-5.0) gm/dl Globulin (2.5-4.0) gm/dl Albumin/Globulin Ratio (0.9-2) TSH (0.300-4.500) uIu/ml COVID-19 Eval Order CovFluRsv at [facility] SARS-CoV-2 (PCR) NEGATIVE (Negative) Influenza Type A (PCR) Negative (Neg) Influenza Type B (PCR) Negative (Neg) RSV (RT-PCR) Negative (Neg) Imaging Data My Impression: X-ray: I interpreted the following studies. Chest: A single view study of the chest was reviewed and was negative for cardiomegaly, focal infiltrate, effusion, pulmonary edema, or wide mediastinum. Radiologist's Impression: CT head: Comparison: 04/04/2017. No ICH, mass-effect or edema. No evidence of acute cortical stroke. Periventricular small vessel ischemic change. Visualized sinuses review mucous retention cyst at the right maxillary sinus versus mucosal thickening likely sequelae of old sinusitis. Remainder of the paranasal sinuses and mastoid air cells are clear. Radiologist: Haley Grant MD ECG Data Attestation: I personally reviewed and interpreted this ECG as follows: Indication: + SOB/dyspnea Rate (beats per minute): 83 Rhythm: + normal sinus ECG Intervals/blocks: + First degree AV block, + Normal QRS and + Normal QT ECG [place]: + Normal ECG ST segments: + Nonspecific ST abnormalities MDM Narrative This is an 84-year-old female who presents due to concern of persistent and worsening dyspnea with exertion, fatigue, and dizziness. Patient has been seen and evaluated in the emergency room multiple times in the last 5 days. 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 Patient was afebrile and hemodynamically stable. Patient did have recent hematoma secondary to chiropractic adjustment and ecchymosis does seem to be tracking with gravity down to the right lower extremity. Patient was concern for persistent bleeding and blood loss contributing to her symptoms. Repeat H&H tonight are similar to that less than 24 hours ago. I do not suspect persistent bleeding or active extravasation from vascular injury. Patient has no symptoms while at rest. With additional review of EMR and obtaining additional records from [employer], patient does have a history of congestive heart failure as well as a history of anemia. Patient seems to be a poor historian regarding her past medical history. Patient's prior outpatient hemoglobin was 9.7. There is mention from cardiology of an LVEF in April of this year of 45% although no formal echo results were able to be obtained. This is improved compared to 2018 when an echo performed on the patient was hospitalized showed an LVEF of 20 to 25%. Patient does have significant cardiac history. Patient had an elevated BNP here, there is no prior available for comparison. No overt pulmonary edema noted on chest x-ray, no pleural effusion or pneumonia otherwise noted given complaints of dyspnea with exertion. Patient's H&H tonight mildly decreased compared to prior outpatient labs, however not dropping over her last several visits here. Patient did have dyspnea with ambulatory trial here as well as mild hypoxia into the upper 80s. Patient denies missing any doses of her Lasix. Admits to not drinking water and drinking mostly diet soda throughout the day. Given information obtained, patient's physical exam, labs and imaging here. I suspect this is more likely related to acute on chronic congestive heart failure. Likely exacerbated by mildly worsening anemia secondary to recent hematoma, as well as dietary indiscretions. Patient's INR here was 1.8, she did take her Coumadin earlier tonight. I do not suspect occult DVT/PE. Troponin negative, no EKG changes noted. Discussed with patient and sister at bedside all results and discussed additional inpatient monitoring. They verbalized understanding were in agreement with plan. Case discussed with hospitalist. Patient was given additional dose of Lasix here. An order was placed for continuous cardiac monitoring. The monitor shows a rate of _90 with normal sinus rhythm. Impression & Plan Dyspnea on exertion, Anemia, CHF (congestive heart failure), Hypoxia, S ubtherapeutic international normalized ratio (INR) Discharge Plan Visit Data Chief Complaint: Shortness of Breath/Dyspnea Stated Complaint: SOB,LEG TURNING BLUE ED Provider: Va Botello Discharge Problem: Dyspnea on exertion, Anemia, CHF (congestive heart failure), Hypoxia, Subtherapeutic international normalized ratio (INR) Patient Disposition: Admitted As Inpatient Discharge Instructions Interventions: ED Discharge Assessment Last Done: 07/31/20 05:04 Discharge Problem: Anemia Qualifiers: Anemia type: unspecified type Qualified Code(s): D64.9 - Anemia, unspecified CHF (congestive heart failure) Qualifiers: Heart failure type: combined systolic and diastolic Heart failure chronicity: acute on chronic Qualified Code(s): I50.43 - Acute on chronic combined systolic (congestive) and diastolic (congestive) heart failure
[2020-07-31 01:48] LABS: Alanine Aminotransferase 23 U/L (12-78); Albumin Level 2.9 gm/dl (3.4-5.0); Aspartate Aminotransferase 31 U/L (15-37); Blood Urea Nitrogen 14 mg/dl (7-18); Carbon Dioxide 27 mmol/L (21-32); Chloride 109 mmol/L (98-107); Creatinine Clr Calc Pharmacy 35.4 ml/min; Est GFR (African American) 58.6; Est GFR (Non-African American) 50.6; Glucose 107 mg/dl (70-99); Magnesium 2.5 mg/dl (1.8-2.4); Potassium 4.2 mmol/L (3.5-5.1); Sodium 139 mmol/L (136-145)
[2020-07-31 01:58] LABS: Alkaline Phosphatase 69 U/L (45-117); Bilirubin,Total 1.6 mg/dl (0.2-1); NT Pro B Type Natriuretic Pept 2108 pg/ml (0-1800); Total Protein 5.9 gm/dl (6.4-8.2); Troponin I < 0.015 ng/ml (0-0.045)
[2020-07-31 02:19] LABS: Basophils # (auto) 0.02 K/uL (0-0.2); Basophils % (auto) 0.2 %; Eosinophils # (auto) 0.44 K/uL (0-0.5); Eosinophils % (auto) 5.4 %; Hematocrit (blood only) 25.8 % (37-47); Hemoglobin 8.3 g/dL (12.0-16.0); Immature Granulocytes # (auto) 0.04 K/uL (0.00-0.02); Immature Granulocytes % (auto) 0.5 %; Lymphocytes # (auto) 1.12 K/uL (1.2-3.4); Lymphocytes % (auto) 13.8 %; Mean Corpuscular Hemoglobin 30.2 pg (25-34); Mean Corpuscular Hgb Conc 32.2 g/dL (32-36); Mean Corpuscular Volume 93.8 fL (80-100); Monocytes # (auto) 1.06 K/uL (0.11-0.59); Monocytes % (auto) 13.1 %; Neutrophils # (auto) 5.41 K/uL (1.4-6.5); Nucleated RBC # (auto) 0.07 K/uL (0-0); Nucleated RBC % (auto) 0.8 %; Platelet Count 248 K/uL (130-400); RDW Coefficient of Variation 16.4 % (11.5-14.5); RDW Standard Deviation 52.3 fL (36.4-46.3); Red Blood Count 2.75 M/uL (4.2-5.4); White Blood Count 8.09 K/uL (4.8-10.8)
[2020-07-31] MEDS ORDERED: FUROSEMIDE 40 MG/4 ML VIAL IV STA (03:44)
[2020-07-31 04:46] LABS: Influenza A virus by PCR Negative (Neg); Influenza B virus by PCR Negative (Neg); RSV by PCR Negative (Neg); SARS CoV2 RNA(COVID-19) InHosp NEGATIVE (Negative)
--- NOTE | 2020-07-31 04:47 | History & Physical Report ---
Date of Service July 31, 2020 Assessment & Plan (1) Dyspnea on exertion: Patient complaining of several days of ZEE, fatigue and SOB as well as dizziness and presyncope. Ddx to include mild CHF vs symptomatic anemia -Observation to medical with telemetry -Check orthostatic VS -Supplemental O2 as needed -Check ambulatory pulse oximetry -Lasix 20mg IV daily -Monitor I/Os, daily standing weights Present on Admission?: Yes (2) Traumatic hematoma of buttock: Suspect this is secondary to manipulation, supratherapeutic INR at the time of 4.3. H/H has been stable over the past several days - now 8.3/25.4. Suspect blood tracking down the leg rather than ongoing bleeding. Leg is soft, NT and well perfused -Monitor ecchymosis -Monitor CBC -Consider transfusion for possible symptomatic anemia - patient with h/o CAD Present on Admission?: Yes (3) Hyperlipidemia LDL goal <100: Chronic -Continue Crestor 40mg po qHS Present on Admission?: Yes (4) HTN (hypertension): Blood pressure presently 105/49 -Continue Metoprolol -Continue to monitor Present on Admission?: Yes (5) GERD (gastroesophageal reflux disease): Chronic. Well controlled -Continue Protonix 20mg po qAM Present on Admission?: Yes (6) CKD (chronic kidney disease), stage III: BUN and Cr near baseline. Patient making urine in response to Lasix -Monitor BUN, Cr, electrolytes and UOP -Avoid nephrotoxic agents Present on Admission?: Yes (7) Chronic obstructive pulmonary disease: Chronic. Stable. 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 Possibly mild failure contributing to patient's complaint of ZEE and SOB. Last echo in April 2020 with EF of 45-49%, focal akinesis of the basilar portion of the inferior, posterior and inferoseptal arana, grade I diastolic dysfunction. Patient's weight today is 78.6 kg which is higher than previously recorded weights (multiple possible inaccuracies including different scales, clothing/blankets/etc). Uncertain of dry weight. -Lasix 20mg IV daily -Monitor daily weights, I/Os -Continue metoprolol Present on Admission?: Yes (9) Atherosclerotic heart disease of [place] coronary artery without angina pectoris: Patient denies CP. No ischemic changes on EKG -Continue ASA, Statin and Metoprolol Present on Admission?: Yes (10) Breast carcinoma, lobular: Chronic -Arimidex daily Present on Admission?: Yes (11) Multiple pulmonary emboli: Remote history. Patient on Coumadin, INR slightly subtherapeutic today at 1.8. -Continue Coumadin -Monitor INR -Monitor leg ecchymosis F/E/N - [place]. Electrolytes WNL. CC/AHA diet Ppx - On coumadin for history of PE/DVT Code- Full per discussion with patient Dispo - Observation to medical with telemetry Present on Admission?: Yes History of Present Illness Chief Complaint: dizziness, SOB Primary Care Provider: Lucian Noe MD Phill Valdez is an 84yo C female with multiple medical problems, CAD s/p CABG, COPD, DM, HTN, HLP presenting with several days of ZEE, dizziness and fatigue. Patient developed back and right buttock pain last week. She was seen by a chiropractor on 07/25/20 and had manipulation performed. She was seen in the ER on 07/26/20 with complaint of ongoing back and buttock pain with mention of ZEE, weakness and near syncope as well. She was discharged home with Lidocaine patches and Tramadol PRN. She was seen in the ER again on 07/30/20 with hypotension and confusion thought to be secondary to tramadol dose. She had a negative rectal exam at that time. Noted to have a significant right buttock he matoma with tracking down thigh with stable H/H. She returns again tonight with complaint of dizziness, ZEE, fatigue, and "feeling weird" and occasionally like she's going to pass out. She denies fever/chills/CP/palpitations/cough/orthopnea/weight gain/dysuria/abdominal pain/nausea/vomiting/diarrhea. She does complain of significant bruising and swelling in RLE. Pain is well controlled. No a dditional complaints at this time. SPO2 in ER 89% on room air initially, now 100% on RA ER Course: Lasix 20mg IV Allergies Allergy/AdvReac Type Severity Reaction Status Date / Time nitroglycerin AdvReac Intermediate BP Verified 07/30/20 15:03 Decreases, HR Increases tramadol AdvReac Intermediate faint Unverified 07/30/20 15:03 feeling, mind foggy not able to think Home Medications Medication Instructions Recorded Confirmed Type aspirin 81 mg tablet,delayed 81 mg PO QAM 12/13/17 07/31/20 History release calcium carbonate 600 mg calcium 1 cap PO QAM cap 12/13/17 07/31/20 History (1,500 mg)-vit D3 1,000 unit capsule rosuvastatin 40 mg tablet 40 mg PO HS 12/13/17 07/31/20 History anastrozole 1 mg tablet 1 mg PO QAM 12/13/18 07/31/20 History famotidine 20 mg tablet 20 mg PO HS 04/11/19 07/31/20 History furosemide 20 mg tablet 20 mg PO QAM 12/11/19 07/31/20 History metoclopramide HCl 10 mg tablet 5 mg PO QDD tab 12/11/19 07/31/20 History albuterol sulfate 90 mcg/actuation 2 puff INH Q4H PRN #8.5 gm 02/08/20 07/31/20 Rx aerosol inhaler metoprolol succinate 50 mg 50 mg PO TID #270 tab 04/10/20 07/31/20 Rx tablet,extended release 24 hr potassium chloride 20 mEq 20 meq PO QAM #30 tab 04/22/20 07/31/20 Rx tablet,extended release(part/cryst) pantoprazole 40 mg tablet,delayed 20 mg PO QAM tab 04/24/20 07/31/20 History release fluticasone propionate 230 1 puff INHALATION BID #12 g 05/14/20 07/31/20 Rx mcg-salmeterol 21 mcg/actuation HFA inhaler lidocaine 1 patch TOP DAILY PRN #15 ea 07/26/20 07/31/20 Rx tramadol 50 mg PO Q12H PRN #10 tab 07/26/20 07/31/20 Rx warfarin [Jantoven] 2 mg PO UD 07/26/20 07/31/20 History propylene glycol [Systane Complete] 1 drp OPHTHALMIC (EYE) BID 07/30/20 07/31/20 History Past Med/Surg History Medical History Anemia Asthma Atherosclerotic heart disease of [place] coronary artery without angina pectoris Breast carcinoma, lobular Right. takes Arimidex daily Carotid artery stenosis Chronic obstructive pulmonary disease CKD (chronic kidney disease), stage III Diabetes mellitus, type 2 Diverticular disease Gastroparesis GERD (gastroesophageal reflux disease) HTN (hypertension) Hyperlipidemia LDL goal <100 Multiple pulmonary emboli S/P surgical procedure (~5-10 years ago) reason for warfarin daily Myocardial Infarction [address]. [address] Viera Near syncope Open wound of chest (wall), complicated Open wound of left breast Osteoarthritis Septic shock hx r/t UTI (2017) Systolic CHF, chronic Surgical History H/O vascular surgery port-a-cath insertion History of cardiac cath with stent following CABG with one stent. History of cataract surgery bilateral History of colonoscopy History of coronary artery bypass graft x2 vessels (1994) History of knee replacement History of removal of Port-a-Cath Hx of lumpectomy right breast with lymph node removal S/P cholecystectomy Laprascopic S/P lymph node biopsy right breast & axillary Family History Father Lung cancer Brother Myocardial infarction Prostate cancer Denies family history of Colon cancer Ovarian cancer Breast cancer Social History Smoking Status: Never smoker Tobacco Type: Cigarettes Second Hand Exposure: No; Hx Alcohol Use: No Hx Substance Use: No Preferred Language: Vincentian Communication Ability: Effective Visual Impairment: No Limitations Hearing Ability: Normal 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 Beliefs That Will Affect Care: None marital status: / Current Living Situation: Alone current occupational status: retired Feels Safe at Home: Yes Dental Care, Regularly: Yes Physical Activity Frequency: Does not Exercise Seatbelt Use: always Assistive Devices: Denture - Upper, Denture - Lower and Glasses Review of Systems Review of Systems: All systems reviewed & are unremarkable except as noted in HPI & below Physical Exam Physical Exam: General: patient resting comfortably, NAD, non-toxic in appearance, AA&O x 4 Skin: warm, dry, intact, no rashes or lesions, bruising noted on right buttock with tracking down right thigh and leg HEENT: NC/AT, PERRL, EOMI, anicteric sclera, conjunctiva without injection, external ear normal to inspection and nontender, nares patent, moist mucus membranes, dentition intact, no oropharyngeal lesions, neck supple, trachea midline, no LAD, no thyromegaly, no JVD Heart: +S1/S2, regular, no m/r/g Lungs: equal air entry bilaterally, no rhonchi/wheezes, faint bibasilar crackles Abd: +BS, soft, NT/ND, no masses/organomegaly/ascites Ext: warm, 2+ pulses in UE/LE bilaterally, +edema in RLE with buttock hematoma, tracking down thigh and leg, soft/cool to touch Neuro: nonfocal, patient AA&O x 4, speech intact, no facial droop, moving all extremities on command with equal strength 5/5, ambulates without difficulty Results & Data Results & Data ([facility]) Vital Signs (Past 12 Hours) Vital Signs Temp Pulse Pulse Resp Resp BP Pulse Ox 07/31/20 04:15 83 24 132/78 100 07/31/20 03:45 85 20 132/73 100 07/31/20 03:31 79 22 108/49 L 100 07/31/20 03:24 100 H 24 07/31/20 03:15 75 20 143/56 H 07/31/20 03:00 77 20 145/57 H 07/31/20 02:45 80 19 134/49 L 07/31/20 02:15 77 21 124/52 L 07/31/20 02:00 77 24 128/52 L 07/31/20 01:45 79 20 147/58 H 07/31/20 01:30 78 22 137/53 L 07/31/20 01:20 82 31 H 07/31/20 01:15 84 23 133/64 07/31/20 01:10 83 23 07/31/20 01:08 18 07/31/20 01:06 87 24 07/31/20 01:00 86 21 158/58 H 07/31/20 00:41 36.4 C L 89 20 120/58 L 99 Pulse Ox 07/31/20 04:15 07/31/20 03:45 07/31/20 03:31 07/31/20 03:24 89 L 07/31/20 03:15 07/31/20 03:00 07/31/20 02:45 07/31/20 02:15 07/31/20 02:00 07/31/20 01:45 07/31/20 01:30 07/31/20 01:20 07/31/20 01:15 07/31/20 01:10 07/31/20 01:08 07/31/20 01:06 07/31/20 01:00 07/31/20 00:41 Laboratory Results Lab Results 07/31/20 07/31/20 07/31/20 Range/Units 01:16 01:16 01:16 WBC 8.09 (4.8-10.8) K/uL RBC 2.75 L (4.2-5.4) M/uL Hgb 8.3 L (12.0-16.0) g/dL Hct 25.8 L (37-47) % MCV 93.8 (80-100) fL MCH 30.2 (25-34) pg MCHC 32.2 (32-36) g/dL RDW Std Deviation 52.3 H (36.4-46.3) fL RDW Coeff of Cathy 16.4 H (11.5-14.5) % Plt Count 248 (130-400) K/uL MPV 9.0 (7.4-10.4) fL Immature Gran % (Auto) 0.5 % Neut % (Auto) 67.0 % Lymph % (Auto) 13.8 % Davison % (Auto) 13.1 % Eos % (Auto) 5.4 % Baso % (Auto) 0.2 % Neut # (Auto) 5.41 (1.4-6.5) K/uL Lymph # (Auto) 1.12 L (1.2-3.4) K/uL Davison # (Auto) 1.06 H (0.11-0.59) K/uL Eos # (Auto) 0.44 (0-0.5) K/uL Baso # (Auto) 0.02 (0-0.2) K/uL Immature Gran # (Auto) 0.04 H (0.00-0.02) K/uL Absolute Nucleated RBC 0.07 H (0-0) K/uL Nucleated RBC % (auto) 0.8 % PT 17.5 H (9.0-12.0) Seconds INR 1.8 H (0.9-1.1) Sodium 139 (136-145) mmol/L Potassium 4.2 (3.5-5.1) mmol/L Chloride 109 H (98-107) mmol/L Carbon Dioxide 27 (21-32) mmol/L Anion Gap 3.0 (3-11) BUN 14 (7-18) mg/dl Creatinine 1.03 (0.6-1.2) mg/dl Est Cr Clr Drug Dosing 35.4 ml/min Est GFR ( Amer) 58.6 Est GFR (Non-Af Amer) 50.6 BUN/Creatinine Ratio 14.0 (10-20) Glucose 107 H (70-99) mg/dl Calcium 8.0 L (8.5-10.1) mg/dl Magnesium 2.5 H (1.8-2.4) mg/dl Total Bilirubin 1.6 H (0.2-1) mg/dl AST 31 (15-37) U/L ALT 23 (12-78) U/L Alkaline Phosphatase 69 (45-117) U/L Troponin I < 0.015 (0-0.045) ng/ml NT-Pro-B Natriuret Pep 2108 H (0-1800) pg/ml Total Protein 5.9 L (6.4-8.2) gm/dl Albumin 2.9 L (3.4-5.0) gm/dl Globulin 3.0 (2.5-4.0) gm/dl Albumin/Globulin Ratio 1.0 (0.9-2) TSH 4.100 (0.300-4.500) uIu/ml COVID-19 Eval Order SARS-CoV-2 (PCR) (Negative) Influenza Type A (PCR) (Neg) Influenza Type B (PCR) (Neg) RSV (RT-PCR) (Neg) 07/31/20 07/31/20 Range/Units 03:55 03:55 WBC (4.8-10.8) K/uL RBC (4.2-5.4) M/uL Hgb (12.0-16.0) g/dL Hct (37-47) % MCV (80-100) fL MCH (25-34) pg MCHC (32-36) g/dL RDW Std Deviation (36.4-46.3) fL RDW Coeff of Cathy (11.5-14.5) % Plt Count (130-400) K/uL MPV (7.4-10.4) fL Immature Gran % (Auto) % Neut % (Auto) % Lymph % (Auto) % Davison % (Auto) % Eos % (Auto) % Baso % (Auto) % Neut # (Auto) (1.4-6.5) K/uL Lymph # (Auto) (1.2-3.4) K/uL Davison # (Auto) (0.11-0.59) K/uL Eos # (Auto) (0-0.5) K/uL Baso # (Auto) (0-0.2) K/uL Immature Gran # (Auto) (0.00-0.02) K/uL Absolute Nucleated RBC (0-0) K/uL Nucleated RBC % (auto) % PT (9.0-12.0) Seconds INR (0.9-1.1) Sodium (136-145) mmol/L Potassium (3.5-5.1) mmol/L Chloride (98-107) mmol/L Carbon Dioxide (21-32) mmol/L Anion Gap (3-11) BUN (7-18) mg/dl Creatinine (0.6-1.2) mg/dl Est Cr Clr Drug Dosing ml/min Est GFR ( Amer) Est GFR (Non-Af Amer) BUN/Creatinine Ratio (10-20) Glucose (70-99) mg/dl Calcium (8.5-10.1) mg/dl Magnesium (1.8-2.4) mg/dl Total Bilirubin (0.2-1) mg/dl AST (15-37) U/L ALT (12-78) U/L Alkaline Phosphatase (45-117) U/L Troponin I (0-0.045) ng/ml NT-Pro-B Natriuret Pep (0-1800) pg/ml Total Protein (6.4-8.2) gm/dl Albumin (3.4-5.0) gm/dl Globulin (2.5-4.0) gm/dl Albumin/Globulin Ratio (0.9-2) TSH (0.300-4.500) uIu/ml COVID-19 Eval Order CovFluRsv at [facility] SARS-CoV-2 (PCR) NEGATIVE (Negative) Influenza Type A (PCR) Negative (Neg) Influenza Type B (PCR) Negative (Neg) RSV (RT-PCR) Negative (Neg) Diagnostic Findings CTH - per STAT-rad: no ICH, mass effect or edema. No evidence of acute cortical stroke. Periventricular small vessel ischemic changes. Visualized sinuses review mucous retention cyst at the right maxillary sinus versus mucosal thickening likely sequella of old sinusitis. Remainder of the paranasal sinuses and mastoid air cells are clear. CXR - per my interpretation - sternotomy wires in place, scarring similar to prior studies ECG Additional Comments: EKG with SR at 83, normal axis, 1st degree AV block with HA=918, QRS=86, XYh=564, no acute ischemic changes Code Status & VTE Plan VTE Prophylaxis Plan VTE Prophylaxis will be ordered: Yes PG Care Time/CCT Total # of Minutes Spent Total Time Spent with Patient: Total time spent is greater than 50% in coordination of care (as documented) at patient's floor/unit and/or counseling patient: Coding Level of Care Code 96047 OBS Care - Level 3 Diagnoses Dyspnea on exertion R06.00 Traumatic hematoma of buttock S30.0XXA Encounter type: initial encounter Hyperlipidemia LDL goal <100 E78.5 HTN (hypertension) I10 Hypertension type: essential hypertension GERD (gastroesophageal reflux disease) K21.9 Esophagitis presence: esophagitis presence not specified CKD (chronic kidney disease), stage III N18.30 Chronic kidney disease stage 3 subtype: unspecified whether 3a or 3b Chronic obstructive pulmonary disease J44.9 COPD type: unspecified COPD CHF (congestive heart failure) I50.43 Heart failure type: combined systolic and diastolic Heart failure chronicity: acute on chronic Atherosclerotic heart disease of [place] coronary artery without angina pectoris I25.10 [place] vs. transplanted heart: [place] heart Breast carcinoma, lobular C50.919 Laterality: unspecified laterality Multiple pulmonary emboli I26.99 (1) Traumatic hematoma of buttock Encounter type: initial encounter Qualified Code(s): S30.0XXA - Contusion of lower back and pelvis, initial encounter (2) HTN (hypertension) Hypertension type: essential hypertension Qualified Code(s): I10 - Essential (primary) hypertension (3) GERD (gastroesophageal reflux disease) Esophagitis presence: esophagitis presence not specified Qualified Code(s): K21.9 - Gastro-esophageal reflux disease without esophagitis (4) CKD (chronic kidney disease), stage III Chronic kidney disease stage 3 subtype: unspecified whether 3a or 3b Qualified Code(s): N18.30 - Chronic kidney disease, stage 3 unspecified (5) Chronic obstructive pulmonary disease COPD type: unspecified COPD Qualified Code(s): J44.9 - Chronic obstructive pulmonary disease, unspecified (6) CHF (congestive heart failure) Heart failure type: combined systolic and diastolic Heart failure chronicity: acute on chronic Qualified Code(s): I50.43 - Acute on chronic combined systolic (congestive) and diastolic (congestive) heart failure (7) Breast carcinoma, lobular Laterality: unspecified laterality Qualified Code(s): C50.919 - Malignant neoplasm of unspecified site of unspecified female breast (8) Atherosclerotic heart disease of [place] coronary artery without angina pectoris [place] vs. transplanted heart: [place] heart Qualified Code(s): I25.10 - Atherosclerotic heart disease of [place] coronary artery without angina pectoris
[2020-07-31] MEDS ORDERED: ONDANSETRON INJ 2 MG/ML 2 ML VIAL IV PRN (05:15)
[2020-07-31] MEDS ORDERED: WARFARIN SOD 2 MG TAB PO SCH (05:15)
[2020-07-31] MEDS ORDERED: DOCUSATE SODIUM 100 MG CAP PO PRN (05:15)
[2020-07-31] MEDS ORDERED: ALBUTEROL HFA 8 GM INHALER INH PRN (05:49)
--- NOTE | 2020-07-31 07:13 | CT Scan Report ---
CT SCAN OF THE BRAIN WITHOUT IV CONTRAST CLINICAL HISTORY: Dizziness. COMPARISON STUDY: CT of the brain dated 04/04/2017. TECHNIQUE: Unenhanced axial CT scan of the brain is performed from the vertex to the skull base. A do se lowering technique was utilized adhering to the principles of ALARA. CT DOSE: 537.48 mGy.cm FINDINGS: Brain parenchyma: There are age-related involutional changes noting mild subcortical and periventric ular microangiopathic change. There is no hemorrhage, mass effect, or evidence of acute territorial i schemia by CT criteria. [place]-white matter differentiation is preserved. No extra-axial fluid collecti on is seen. Mineralization is noted in the basal ganglia. Ventricles, sulci, cisterns: Prominent secondary to involutional change. Intracranial vasculature: There is atherosclerotic calcification of the cavernous carotid and vertebr al arteries. Calvarium: Unremarkable. Sinuses and mastoids: There is a 1.1 cm retention cyst in the right maxillary antrum. The remaining v isualized paranasal sinuses are clear. The mastoid air cells are well pneumatized. Orbits: The bony orbits are grossly intact. There are bilateral ocular lens implants. IMPRESSION: There is no hemorrhage, mass effect, or evidence of acute territorial ischemia by CT crit geronimo. ACT 112: Negative or not required by law. Electronically signed by: Kodi Ro M.D. 07/31/2020 7:11 AM
--- NOTE | 2020-07-31 07:34 | XRay Report ---
SINGLE VIEW CHEST CLINICAL HISTORY: Dyspnea on exertion. FINDINGS: An AP, portable, upright chest radiograph is compared to study dated 07/30/2020 and correlate d with chest CT dated 06/15/2017. The patient is status post midline sternotomy. The heart is enlarged noting atherosclerotic calcification of the thoracic aorta. The pulmonary vasculature is noncongeste d. Parenchymal scarring is again seen in the right midlung. There is bibasilar scarring/atelectasis. No airspace consolidation or large pleural effusion is identified. No pneumothorax is seen. The skele drew structures are osteopenic. The bony thorax is grossly intact. IMPRESSION: Cardiomegaly and chronic parenchymal changes as above with no acute cardiopulmonary abnor mality identified. ACT 112: Negative or not required by law. Electronically signed by: Kodi Ro M.D. 07/31/2020 7:33 AM
--- NOTE | 2020-07-31 08:08 | Electrocardiogram Report ---
Test Reason : Blood Pressure : / mmHG Vent. Rate : 083 BPM Atrial Rate : 083 BPM P-R Int : 204 ms QRS Dur : 086 ms QT Int : 404 ms P-R-T Axes : 062 000 102 degrees QTc Int : 474 ms Normal sinus rhythm Diffuse Nonspecific T wave abnormality Nonspecific ST abnormality Lateral leads Poor R wave progression, consider anterior IL vs. lead placement vs. LVH Abnormal ECG When compared with ECG of 30-JUL-2020 12:25, No significant change Confirmed by Jaime Draper ([id number]) on 07/31/2020 8:07:41 AM Referred By: REFERRED SELF Confirmed By:Jaime Draper
[2020-07-31] MEDS: ANASTROZOLE 1 MG TAB PO SCH (09:57)
[2020-07-31] MEDS: PANTOprazole 40 MG TAB PO SCH (09:57)
[2020-07-31] MEDS: ASPIRIN 81 MG ECTAB PO SCH (09:57)
[2020-07-31] MEDS: FUROSEMIDE 20 MG in SYRINGE 0 ML IV SCH ×2 (09:58→10:17)
[2020-07-31] MEDS: METOPROLOL SUCC 50MG EXT REL TAB PO SCH ×3 (09:58→20:54)
[2020-07-31] MEDS: FLUTICASONE/VILANTEROL 100/25MCG 14 PUFFS/INHALER INH SCH (10:08)
--- NOTE | 2020-07-31 14:03 | Hospitalist Progress Note ---
Date of Service July 31, 2020 Assessment & Plan (1) Dyspnea on exertion: Patient complaining of several days of ZEE, fatigue and SOB as well as dizziness and presyncope. I believe this is related to anemia as her prior hgb was ~14.5, and now she is down to 8.3. - Lasix 20mg IV daily started on admission; will resume home dose tomorrow as she appears euvolemic to slightly hypovolemic. - Will give IV iron as I believe most of this is symptomatic anemia; consider transfusion if no improvement in hgb - PT/OT (2) Traumatic hematoma of buttock: Due to chiropractic manipulation with supratherapeutic INR at the time of 4.3. Leg remains soft, non-tender, and well perfused. - Monitor ecchymosis (3) Hyperlipidemia LDL goal <100: Chronic. - Continue Crestor 40mg po qHS (4) HTN (hypertension): Blood pressure presently 135/49. - Continue Metoprolol (5) GERD (gastroesophageal reflux disease): Chronic. Well controlled -Continue Protonix 20mg po qAM (6) CKD (chronic kidney disease), stage III: BUN and Cr near baseline. -Monitor BUN, Cr, electrolytes and UOP -Avoid nephrotoxic agents (7) Chronic obstructive pulmonary disease: Chronic. Stable. No cough/wheeze today. 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 Last echo in April 2020 with EF of 45-49%, focal akinesis of the basilar portion of the inferior, posterior and inferoseptal arana, grade I diastolic dysfunction. - Lasix 20mg IV daily on admission. - Monitor daily weights, I/Os -> Today, weight is 77.2 kg and she appears e uvolemic. - Continue metoprolol - Resume home furosemide (9) Atherosclerotic heart disease of [place] coronary artery without angina pectoris: Patient denies CP. No ischemic changes on EKG. - Continue ASA, Statin and Metoprolol (10) Breast carcinoma, lobular: Chronic. - Arimidex daily (11) Multiple pulmonary emboli: Remote history. Patient on Coumadin, INR slightly subtherapeutic today at 1.8. - Hold Coumadin - Very interested in DOAC. Will prescribe it and check mckee at her pharmacy. - For now, HOLD all anticoagulation for at least the next 1-2 days to allow for hematoma healing. Admission and Anticipated Discharge Date Admission Date: July 31, 2020 Subjective No major change today. Feels overall stable from yesterday. Reports no fe vers/chills, chest pain, shortness of breath at rest, abdominal pain, nausea, or vomiting. Physical Exam Constitutional: WD/WN, vitals as above Eyes: EOM intact bilaterally; no conjunctival abnormality ENMT: external ear and nose normal, oropharynx normal Neck: trachea midline, no thyromegaly normal visual inspection Respiratory: normal respiratory effort, lungs clear to auscultation no res piratory distress Cardiovascular: RRR, no murmur, no edema Gastrointestinal (Abdomen): Inspection/Auscultation: abdomen normal to inspection; abdomen not distended Musculoskeletal: no cyanosis or clubbing, extremities motor strength 5/5 Skin: no rashes, warm and dry Neurologic: moves all extremities and awake Psychiatric: Orientation: alert, oriented to person and cooperative Results & Data Results & Data ([facility]) Vital Signs (Past 12 Hours) Vital Signs Temp Pulse Pulse Pulse Resp Resp BP 07/31/20 10:45 36.5 C 100 H 20 07/31/20 10:00 91 H 07/31/20 07:00 77 07/31/20 06:50 36.7 C 80 18 07/31/20 06:34 94 H 07/31/20 05:24 37 C 86 18 07/31/20 04:45 84 22 105/49 L 07/31/20 04:15 83 24 132/78 07/31/20 03:45 85 20 132/73 07/31/20 03:31 79 22 108/49 L 07/31/20 03:24 100 H 24 07/31/20 03:15 75 20 143/56 H 07/31/20 03:00 77 20 145/57 H 07/31/20 02:45 80 19 134/49 L 07/31/20 02:15 77 21 124/52 L 07/31/20 02:00 77 24 128/52 L BP Pulse Ox Pulse Ox 07/31/20 10:45 135/83 99 07/31/20 10:00 112/51 L 07/31/20 07:00 07/31/20 06:50 108/61 99 07/31/20 06:34 07/31/20 05:24 111/72 96 07/31/20 04:45 100 07/31/20 04:15 100 07/31/20 03:45 100 07/31/20 03:31 100 07/31/20 03:24 89 L 07/31/20 03:15 07/31/20 03:00 07/31/20 02:45 07/31/20 02:15 07/31/20 02:00 PG Care Time/CCT Total # of Minutes Spent Total Time Spent with Patient: Total time spent is greater than 50% in coordination of care (as documented) at patient's floor/unit and/or counseling patient: Coding Level of Care Code 32162 Subseq Hosp Care Lvl 3 Diagnoses Dyspnea on exertion R06.00 Traumatic hematoma of buttock S30.0XXA Encounter type: initial encounter Hyperlipidemia LDL goal <100 E78.5 HTN (hypertension) I10 Hypertension type: essential hypertension GERD (gastroesophageal reflux disease) K21.9 Esophagitis presence: esophagitis presence not specified CKD (chronic kidney disease), stage III N18.30 Chronic kidney disease stage 3 subtype: unspecified whether 3a or 3b Chronic obstructive pulmonary disease J44.9 COPD type: unspecified COPD CHF (congestive heart failure) I50.43 Heart failure type: combined systolic and diastolic Heart failure chronicity: acute on chronic Atherosclerotic heart disease of [place] coronary artery without angina pectoris I25.10 [place] vs. transplanted heart: [place] heart Breast carcinoma, lobular C50.919 Laterality: unspecified laterality Multiple pulmonary emboli I26.99 (1) Traumatic hematoma of buttock Encounter type: initial encounter Qualified Code(s): S30.0XXA - Contusion of lower back and pelvis, initial encounter (2) HTN (hypertension) Hypertension type: essential hypertension Qualified Code(s): I10 - Essential (primary) hypertension (3) GERD (gastroesophageal reflux disease) Esophagitis presence: esophagitis presence not specified Qualified Code(s): K21.9 - Gastro-esophageal reflux disease without esophagitis (4) CKD (chronic kidney disease), stage III Chronic kidney disease stage 3 subtype: unspecified whether 3a or 3b Qualified Code(s): N18.30 - Chronic kidney disease, stage 3 unspecified (5) Chronic obstructive pulmonary disease COPD type: unspecified COPD Qualified Code(s): J44.9 - Chronic obstructive pulmonary disease, unspecified (6) CHF (congestive heart failure) Heart failure type: combined systolic and diastolic Heart failure chronicity: acute on chronic Qualified Code(s): I50.43 - Acute on chronic combined systolic (congestive) and diastolic (congestive) heart failure (7) Atherosclerotic heart disease of [place] coronary artery without angina pectoris [place] vs. transplanted heart: [place] heart Qualified Code(s): I25.10 - Atherosclerotic heart disease of [place] coronary artery without angina pectoris (8) Breast carcinoma, lobular Laterality: unspecified laterality Qualified Code(s): C50.919 - Malignant neoplasm of unspecified site of unspecified female breast
[2020-07-31] MEDS: ACETAMINOPHEN 325 MG TAB PO PRN (14:08)
[2020-07-31] MEDS ORDERED: IRON SUCROSE 300 MG in SODIUM CHLORIDE 0.9% 250 ML IV ONE (14:30)
[2020-07-31] MEDS ORDERED: METOCLOPRAMIDE HCL 5 MG TABLET PO SCH (16:30)
[2020-07-31] MEDS ORDERED: FAMOTIDINE 20 MG TAB PO SCH (21:00)
[2020-07-31] MEDS ORDERED: ROSUVASTATIN CALCIUM 20 MG TAB PO SCH (21:00)
[2020-08-01] MEDS: ACETAMINOPHEN 325 MG TAB PO PRN (04:10)
[2020-08-01 06:07] LABS: Basophils # (auto) 0.02 K/uL (0-0.2); Basophils % (auto) 0.3 %; Eosinophils # (auto) 0.37 K/uL (0-0.5); Eosinophils % (auto) 5.7 %; Hematocrit (blood only) 26.6 % (37-47); Hemoglobin 8.5 g/dL (12.0-16.0); Immature Granulocytes # (auto) 0.02 K/uL (0.00-0.02); Immature Granulocytes % (auto) 0.3 %; Lymphocytes # (auto) 0.94 K/uL (1.2-3.4); Lymphocytes % (auto) 14.5 %; Mean Platelet Volume 8.6 fL (7.4-10.4); Monocytes # (auto) 0.68 K/uL (0.11-0.59); Monocytes % (auto) 10.5 %; Neutrophils # (auto) 4.47 K/uL (1.4-6.5); Neutrophils % (auto) 68.7 %; Nucleated RBC # (auto) 0.05 K/uL (0-0); Nucleated RBC % (auto) 0.7 %; Platelet Count 261 K/uL (130-400); RDW Coefficient of Variation 16.7 % (11.5-14.5); RDW Standard Deviation 54.3 fL (36.4-46.3); Red Blood Count 2.83 M/uL (4.2-5.4)
[2020-08-01 06:45] LABS: Calcium 8.7 mg/dl (8.5-10.1); Creatinine Clr Calc Pharmacy 37.2 ml/min; Est GFR (Non-African American) 54.4; Potassium 3.5 mmol/L (3.5-5.1)
[2020-08-01] MEDS: FLUTICASONE/VILANTEROL 100/25MCG 14 PUFFS/INHALER INH SCH (08:25)
[2020-08-01] MEDS: METOPROLOL SUCC 50MG EXT REL TAB PO SCH ×2 (08:25→15:08)
[2020-08-01] MEDS: ASPIRIN 81 MG ECTAB PO SCH (08:25)
[2020-08-01] MEDS: PANTOprazole 40 MG TAB PO SCH (08:25)
[2020-08-01] MEDS: ANASTROZOLE 1 MG TAB PO SCH (08:25)
[2020-08-01] MEDS ORDERED: FUROSEMIDE 20 MG TAB PO SCH (09:00)
[2020-08-01 11:11] VITALS: BP 112/71; PULSE 86; TEMP 97.5; O2SAT 96
== END 2020-08-01 15:30 | disposition home health service (06) ==
LOC: 2N 00:39 → ED 00:39 → SUATTDRO 04:41 → 2N 05:04

== ENCOUNTER 2021-05-16 18:46 | Observation (INO) ==
[2021-05-16] MEDS ORDERED: SODIUM CHLORIDE 0.9% 500 ML IV STA (19:41)
--- NOTE | 2021-05-16 19:43 | Emergency Department Note ---
Impression & Plan Petechiae ADMIT ED Provider Note HPI: The patient is a very pleasant 85-year-old female who presents to the emergency department today with concern for rash. Patient has a petechial appearing rash on her bilateral lower extremities, centered mostly around the medial ankles on both sides. She states this developed 5 days ago. She denies any recent trauma, denies any headache, denies any chest pain or shortness of breath, denies any recent fevers. On arrival here to the ED the patient is nontoxic- appearing, she is hemodynamically stable, she appears well on my initial assessment and is saturating well on room air. ROS: -Skin: Rash *10 point review systems was conducted and is otherwise negative unless stated above *Outpatient medications and allergy history reviewed PE: General: Alert, NAD HEENT: Normocephalic, atraumatic Eyes: Extraocular eye movement is intact, no scleral erythema Pulmonary: Clear to auscultation bilaterally, no wheezing Cardio: Regular rate and rhythm GI: Abdomen is soft, nontender : No suprapubic tenderness MSK: No evidence of trauma or malformation of the extremities, no edema Skin: Petechial rash to the bilateral lower extremities centered mostly around the medial ankle area and extending somewhat distally and proximally up the leg, not blanchable, there is no blister formation, there is no skin peeling Neuro: Alert, no focal deficits Psychiatric: Cooperative athletic monitor: - An order was placed for continuous cardiac monitoring - Patient was noted to be in sinus rhythm with rate of 70 EKG: Rate: 73 Rhythm: Normal sinus rhythm Intervals: MA interval slightly prolonged at 202 ms, otherwise within normal limits ST changes: No ST elevation Time: 1953 Medical Decision Making: Patient presented to the emergency department with a rash, she states that this is been ongoing for the past 5 days. She denies any fever, denies any headache, denies any chest pain or shortness of breath. Patient is overall nontoxic- appearing on arrival, she is afebrile and saturating well on room air. IV was established, lab work obtained, platelet count is within normal limits, patient does not have any acute kidney injury, patient does have multiple electrolyte abnormalities including hypokalemia 2.8, hypomagnesemia 1.5, she has a critical electrolyte abnormality of a calcium of 5.5. Potassium was repleted orally, patient was given IV magnesium and IV calcium. She remained stable on telemetry, EKG does not show any evidence of arrhythmia. I discussed the above findings with the on-call hospitalist service for [facility] provider group, patient will be admitted to their service for further ma nagement. Patient was in agreement to the above plan and she was admitted in stable condition. Diagnosis: 1. Hypokalemia 2. Critical hypocalcemia 3. Hypomagnesemia 4. Petechial rash to the bilateral lower extremities Disposition: Admission Deric Carter DO Emergency Medicine Past Med/Surg History Medical History Anemia Asthma Breast carcinoma, lobular Carotid artery stenosis CHF (congestive heart failure) Chronic obstructive pulmonary disease CKD (chronic kidney disease), stage III Diabetes mellitus, type 2 Diverticular disease Gastroparesis GERD (gastroesophageal reflux disease) HTN (hypertension) Hyperlipidemia LDL goal <100 Long-term (current) use of anticoagulants, INR goal 2.0-3.0 Multiple pulmonary emboli Myocardial Infarction Open wound of left breast Osteoarthritis Septic shock Systolic CHF, chronic Surgical History H/O vascular surgery History of cardiac cath History of cataract surgery History of colonoscopy History of coronary artery bypass graft History of removal of Port-a-Cath Hx of lumpectomy S/P cholecystectomy S/P debridement S/P lymph node biopsy Family History Father Lung cancer Brother Prostate cancer Myocardial infarction Other No family history of adverse response to anesthesia Denies family history of Colon cancer Ovarian cancer Breast cancer Social History Smoking Status: Former smoker Tobacco Type: Cigarettes Second Hand Exposure: No; Hx Alcohol Use: No Hx Substance Use: Yes Preferred Language: Cymraes Communication Ability: Effective Visual Impairment: No Limitations Hearing Ability: Normal Science Intern Required: No Beliefs That Will Affect Care: None marital status: / Current Living Situation: Alone current occupational status: retired Feels Safe at Home: Yes Dental Care, Regularly: Yes Physical Activity Frequency: Does not Exercise Seatbelt Use: always Assistive Devices: Denture - Upper and Denture - Lower Allergies Allergies Allergy/AdvReac Type Severity Reaction Status Date / Time nitroglycerin AdvReac Intermediate BP Verified 05/16/21 19:35 Decreases, HR Increases tramadol AdvReac Intermediate faint Verified 05/16/21 19:35 feeling, mind foggy not able to think Home Meds Home Medications Medication Instructions Recorded Confirmed aspirin 81 mg tablet,delayed 81 mg PO QAM 12/13/17 05/16/21 release calcium carbonate 600 mg-vitamin 1 cap PO QAM cap 12/13/17 05/16/21 D3 25 mcg (1,000 unit) capsule rosuvastatin 40 mg tablet (Crestor) 40 mg PO HS 12/13/17 05/16/21 anastrozole 1 mg tablet (Arimidex) 1 mg PO QAM 12/13/18 05/16/21 famotidine 20 mg tablet 20 mg PO HS 04/11/19 05/16/21 furosemide 20 mg tablet 20 mg PO QAM 12/11/19 05/16/21 metoclopramide HCl 10 mg tablet 5 mg PO QPM tab 12/11/19 05/16/21 (Reglan) acetaminophen 650 mg 650 mg PO Q12H 08/07/20 05/16/21 tablet,extended release loratadine 10 mg tablet 10 mg PO QAM 08/07/20 05/16/21 Previous Rx's Medication Instructions Recorded albuterol sulfate 90 mcg/actuation 2 puff INH Q4H PRN #8.5 gm 02/08/20 aerosol inhaler (ProAir HFA) fluticasone propionate 230 1 puff INHALATION BID #12 g 11/28/20 mcg-salmeterol 21 mcg/actuation HFA inhaler (Advair HFA) metoprolol succinate 50 mg 50 mg PO TID #270 tab 01/15/21 tablet,extended release 24 hr (Toprol XL) apixaban 5 mg tablet 5 mg PO BID #60 tab 03/04/21 potassium chloride 20 mEq 20 meq PO QAM #30 tab 04/28/21 tablet,extended release(part/cryst) Results & Data (ED) Vital Signs Vital Signs - 24 hr 05/16/21 18:56 05/16/21 19:30 05/16/21 20:17 Temperature 36.9 C Temperature Source Temporal Artery Scan Pulse Rate 86 72 Pulse Rate [Finger] 70 Pulse Rhythm Regular Pulse Strength Normal Respiratory Rate 20 18 Respiratory Effort / Characteristics Non-Labored Spontaneous Non-Labored Respiratory Depth Normal Normal Respiratory Pattern Regular Blood Pressure 182/91 H Blood Pressure [Left Arm] Blood Pressure Mean 121 Blood Pressure Mean [Left Arm] Blood Pressure Position Sitting Blood Pressure Position [Left Arm] Pulse Oximetry 95 96 97 Oxygen Delivery Method Room Air Room Air Room Air Oxygen Flow Rate Sepsis Recent Fever Within 48 Hours No Sepsis New/Unexplained Change in Mental Status N/A Sepsis Action Taken by Nursing No Action Required 05/16/21 21:00 05/16/21 22:53 05/16/21 23:09 Temperature Temperature Source Pulse Rate Pulse Rate [Finger] 75 76 Pulse Rhythm Pulse Strength Respiratory Rate 18 Respiratory Effort / Characteristics Non-Labored Respiratory Depth Normal Respiratory Pattern Blood Pressure Blood Pressure [Left Arm] 163/91 H Blood Pressure Mean Blood Pressure Mean [Left Arm] 115 Blood Pressure Position Blood Pressure Position [Left Arm] Sitting Pulse Oximetry 98 96 97 Oxygen Delivery Method Room Air Room Air Oxygen Flow Rate 0 Sepsis Recent Fever Within 48 Hours Sepsis New/Unexplained Change in Mental Status Sepsis Action Taken by Nursing Laboratory Data Result diagrams: 05/16/21 19:47 05/16/21 22:03 Lab Results 05/16/21 05/16/21 05/16/21 Range/Units 19:47 19:47 19:47 WBC 5.62 (4.8-10.8) K/uL RBC 5.26 (4.2-5.4) M/uL Hgb 15.5 (12.0-16.0) g/dL Hct 48.5 H (37-47) % MCV 92.2 (80-100) fL MCH 29.5 (25-34) pg MCHC 32.0 (32-36) g/dL RDW Std Deviation 46.6 H (36.4-46.3) fL RDW Coeff of Cathy 13.8 (11.5-14.5) % Plt Count 163 (130-400) K/uL MPV 9.1 (7.4-10.4) fL Immature Gran % (Auto) 0.4 % Neut % (Auto) 58.3 % Lymph % (Auto) 23.3 % [place] % (Auto) 7.8 % Eos % (Auto) 9.3 % Baso % (Auto) 0.9 % Neut # (Auto) 3.28 (1.4-6.5) K/uL Lymph # (Auto) 1.31 (1.2-3.4) K/uL [place] # (Auto) 0.44 (0.11-0.59) K/uL Eos # (Auto) 0.52 H (0-0.5) K/uL Baso # (Auto) 0.05 (0-0.2) K/uL Immature Gran # (Auto) 0.02 (0.00-0.02) K/uL PT 11.1 (9.0-12.0) Seconds INR 1.1 (0.9-1.1) APTT 29.2 (21.0-31.0) Seconds PTT Ratio 1.1 Sodium Cancelled Potassium Cancelled Chloride Cancelled Carbon Dioxide Cancelled Anion Gap Cancelled BUN Cancelled Creatinine Cancelled Est Cr Clr Drug Dosing Cancelled Est GFR ( Amer) Cancelled Est GFR (Non-Af Amer) Cancelled BUN/Creatinine Ratio Cancelled Glucose Cancelled Calcium Cancelled Ionized Calcium (1.12-1.32) mmol/L Magnesium (1.7-2.4) mg/dl Total Bilirubin Cancelled AST Cancelled ALT Cancelled Alkaline Phosphatase Cancelled Troponin I Cancelled Total Protein Cancelled Albumin Cancelled Globulin Cancelled Albumin/Globulin Ratio Cancelled Lipase Cancelled SARS-CoV-2, RNA, NAAT (NEGATIVE) 05/16/21 05/16/21 05/16/21 Range/Units 22:03 22:03 23:00 WBC (4.8-10.8) K/uL RBC (4.2-5.4) M/uL Hgb (12.0-16.0) g/dL Hct (37-47) % MCV (80-100) fL MCH (25-34) pg MCHC (32-36) g/dL RDW Std Deviation (36.4-46.3) fL RDW Coeff of Cathy (11.5-14.5) % Plt Count (130-400) K/uL MPV (7.4-10.4) fL Immature Gran % (Auto) % Neut % (Auto) % Lymph % (Auto) % [place] % (Auto) % Eos % (Auto) % Baso % (Auto) % Neut # (Auto) (1.4-6.5) K/uL Lymph # (Auto) (1.2-3.4) K/uL [place] # (Auto) (0.11-0.59) K/uL Eos # (Auto) (0-0.5) K/uL Baso # (Auto) (0-0.2) K/uL Immature Gran # (Auto) (0.00-0.02) K/uL PT (9.0-12.0) Seconds INR (0.9-1.1) APTT (21.0-31.0) Seconds PTT Ratio Sodium 145 Potassium 2.8 L Chloride 119 H Carbon Dioxide 20 L Anion Gap 6 BUN 11 Creatinine 0.45 L Est Cr Clr Drug Dosing 83.0 Est GFR ( Amer) 107.4 Est GFR (Non-Af Amer) 92.7 BUN/Creatinine Ratio 24.4 H Glucose 55 L Calcium 5.5 L* Ionized Calcium (1.12-1.32) mmol/L Magnesium 1.5 L (1.7-2.4) mg/dl Total Bilirubin 0.4 AST 13 ALT 8 Alkaline Phosphatase 51 Troponin I < 0.03 Total Protein 4.1 L Albumin 2.5 L Globulin 1.6 L Albumin/Globulin Ratio 1.6 Lipase 26 SARS-CoV-2, RNA, NAAT NEGATIVE (NEGATIVE) 05/17/21 Range/Units 00:02 WBC (4.8-10.8) K/uL RBC (4.2-5.4) M/uL Hgb (12.0-16.0) g/dL Hct (37-47) % MCV (80-100) fL MCH (25-34) pg MCHC (32-36) g/dL RDW Std Deviation (36.4-46.3) fL RDW Coeff of Cathy (11.5-14.5) % Plt Count (130-400) K/uL MPV (7.4-10.4) fL Immature Gran % (Auto) % Neut % (Auto) % Lymph % (Auto) % [place] % (Auto) % Eos % (Auto) % Baso % (Auto) % Neut # (Auto) (1.4-6.5) K/uL Lymph # (Auto) (1.2-3.4) K/uL [place] # (Auto) (0.11-0.59) K/uL Eos # (Auto) (0-0.5) K/uL Baso # (Auto) (0-0.2) K/uL Immature Gran # (Auto) (0.00-0.02) K/uL PT (9.0-12.0) Seconds INR (0.9-1.1) APTT (21.0-31.0) Seconds PTT Ratio Sodium Potassium Chloride Carbon Dioxide Anion Gap BUN Creatinine Est Cr Clr Drug Dosing Est GFR ( Amer) Est GFR (Non-Af Amer) BUN/Creatinine Ratio Glucose Calcium Ionized Calcium 1.10 L (1.12-1.32) mmol/L Magnesium (1.7-2.4) mg/dl Total Bilirubin AST ALT Alkaline Phosphatase Troponin I Total Protein Albumin Globulin Albumin/Globulin Ratio Lipase SARS-CoV-2, RNA, NAAT (NEGATIVE) Administered Medications Potassium Chloride (K Marcelino / Wtr) 10 meq in 100 mls @ 100 mls/hr IV Q1H ELÍAS; Protocol Stop: 05/17/21 02:12 Last Admin: 05/16/21 23:37 Dose: 100 mls/hr Documented by: [id number] Discontinued Medications Sodium Chloride (Nss) 500 mls @ 999 mls/hr IV .Q31M STA Stop: 05/16/21 20:11 Last Infusion: 05/16/21 22:33 Dose: 0 mls/hr Documented by: [id number] Admin: 05/16/21 20:18 Dose: 999 mls/hr Documented by: [id number] Calcium Gluconate () 1,000 mg in 60 mls @ 240 mls/hr IV NOW STA Stop: 05/16/21 23:04 Last Infusion: 05/16/21 23:37 Dose: 0 mls/hr Documented by: [id number] Admin: 05/16/21 23:03 Dose: 240 mls/hr Documented by: [id number] Magnesium Sulfate/Dextrose (Magnesium Sulfate / D5w) 1 gm in 100 mls @ 50 mls/hr IV ONE ONE Stop: 05/17/21 01:20 Last Admin: 05/16/21 23:37 Dose: 50 mls/hr Documented by: [id number] Potassium Chloride (Potassium Chloride Crtab 20 Meq Tabcr) 40 meq PO NOW STA Stop: 05/16/21 22:45 Last Admin: 05/16/21 22:52 Dose: 40 meq Documented by: [id number] Imaging Data Radiologist's Impression: Chest X-Ray 05/16/21 19:41 SINGLE VIEW CHEST CLINICAL HISTORY: Atypical chest pain. FINDINGS: An AP, portable, upright chest radiograph is compared to study dated 07/31/2020 and correlated with chest CT dated 06/15/2017. The patient is status post midline sternotomy. The heart is enlarged noting atherosclerotic calcification of the thoracic aorta. The pulmonary vasculature is noncongested. Chronic interstitial thickening is similar to previous. No airspace consolidation or large pleural effusion is identified. There is bibasilar atelectasis. No pneumothorax is seen. The skeletal structures are osteopenic. The bony thorax is grossly intact. Degenerative change is noted in the shoulders and thoracic spine. IMPRESSION: Cardiomegaly with no acute cardiopulmonary abnormality. ACT 112: Negative or not required by law. Electronically signed by: Kodi Ro M.D. 05/16/2021 8:15 PM Discharge Plan Visit Data Chief Complaint: Allergic Reaction Stated Complaint: RASH ED Provider: Deric Carter Discharge Problem: Petechiae Patient Disposition: Home - Self-Care Condition: Good
--- NOTE | 2021-05-16 20:16 | XRay Report ---
SINGLE VIEW CHEST CLINICAL HISTORY: Atypical chest pain. FINDINGS: An AP, portable, upright chest radiograph is compared to study dated 07/31/2020 and correlate d with chest CT dated 06/15/2017. The patient is status post midline sternotomy. The heart is enlarged noting atherosclerotic calcification of the thoracic aorta. The pulmonary vasculature is noncongeste d. Chronic interstitial thickening is similar to previous. No airspace consolidation or large pleural effusion is identified. There is bibasilar atelectasis. No pneumothorax is seen. The skeletal struct ures are osteopenic. The bony thorax is grossly intact. Degenerative change is noted in the shoulders and thoracic spine. IMPRESSION: Cardiomegaly with no acute cardiopulmonary abnormality. ACT 112: Negative or not required by law. Electronically signed by: Kodi Ro M.D. 05/16/2021 8:15 PM
[2021-05-16 21:19] LABS: Basophils # (auto) 0.05 K/uL (0-0.2); Basophils % (auto) 0.9 %; Eosinophils # (auto) 0.52 K/uL (0-0.5); Eosinophils % (auto) 9.3 %; Hematocrit (blood only) 48.5 % (37-47); Hemoglobin 15.5 g/dL (12.0-16.0); Immature Granulocytes # (auto) 0.02 K/uL (0.00-0.02); Immature Granulocytes % (auto) 0.4 %; Lymphocytes # (auto) 1.31 K/uL (1.2-3.4); Lymphocytes % (auto) 23.3 %; Mean Corpuscular Hemoglobin 29.5 pg (25-34); Mean Corpuscular Volume 92.2 fL (80-100); Mean Platelet Volume 9.1 fL (7.4-10.4); Monocytes # (auto) 0.44 K/uL (0.11-0.59); Monocytes % (auto) 7.8 %; Neutrophils # (auto) 3.28 K/uL (1.4-6.5); Neutrophils % (auto) 58.3 %; Platelet Count 163 K/uL (130-400); RDW Coefficient of Variation 13.8 % (11.5-14.5); RDW Standard Deviation 46.6 fL (36.4-46.3); Red Blood Count 5.26 M/uL (4.2-5.4); White Blood Count 5.62 K/uL (4.8-10.8)
[2021-05-16 21:29] LABS: INR 1.1 (0.9-1.1); Partial Thromboplastin Ratio 1.1; Partial Thromboplastin Time 29.2 Seconds (21.0-31.0); Prothrombin Time 11.1 Seconds (9.0-12.0)
[2021-05-16 22:32] LABS: Troponin I < 0.03 ng/ml (0-0.04)
[2021-05-16 22:38] LABS: Alanine Aminotransferase 8 U/L (7-52); Albumin Globulin Ratio 1.6 (0.9-2); Albumin Level 2.5 gm/dl (3.4-5.0); Alkaline Phosphatase 51 U/L (34-104); Anion Gap 6 (3-11); Aspartate Aminotransferase 13 U/L (13-39); BUN Creatinine Ratio 24.4 (10-20); Bilirubin,Total 0.4 mg/dl (0.2-1.0); Blood Urea Nitrogen 11 mg/dl (6-23); Calcium 5.5 mg/dl (8.5-10.1); Carbon Dioxide 20 mmol/L (21-32); Chloride 119 mmol/L (98-107); Est GFR (African American) 107.4 ml/min; Est GFR (Non-African American) 92.7 ml/min; Globulin 1.6 gm/dl (2.5-4.0); Glucose 55 mg/dl (70-99(Fasting)); Lipase 26 U/L (11-82); Potassium 2.8 mmol/L (3.5-5.1); Sodium 145 mmol/L (136-145); Total Protein 4.1 gm/dl (6.0-8.3)
[2021-05-16] MEDS ORDERED: POTASSIUM CHLORIDE CRTAB 20 MEQ TABCR PO STA (22:44)
[2021-05-16] MEDS ORDERED: CALCIUM GLUCONATE 1,000 MG/60 ML BAG IV STA (22:50)
--- NOTE | 2021-05-16 23:04 | History & Physical Report ---
Date of Service May 16, 2021 Assessment & Plan (1) Rash: Plan: 85yo female with HTN, HLD, T2DM, CHF, CKD3, and history of PE (on eliquis) presents with a five-day history of rash on both ankles. On arrival to the ED, patient was noted with a potassium of 2.8 and a calcium of 5.5. Rash Patient with five-day history of petechial rash on both ankles with a two-day history of tenderness; history of breast cancer noted Unclear cause - platelets wnl, PT/INR wnl; unclear if related to electrolyte abnormalities or if related to history of cancer; could be paraneoplastic syndrome Peripheral smear ordered Trend daily CBC, BMP Hypokalemia Potassium 2.8 on admission EKG: NSR KCl 40mEq PO x1 administered in ED KCl rider 10mEq x3 ordered Repeat BMP in AM Hypocalcemia Calcium on admission 5.5, when corrected for hypoalbuminemia, 6.7 Calcium gluconate IV 1000mg administered in ED Ionized calcium minimally low at 1.10 BMP, ionized calcium level in AM Hypomagnesemia Magnesium 1.5 on admission Mag sulfate 1g x1 administered in ED Repeat mag level in AM HTN BP slightly elevated on admission Continue home metoprolol HLD, CAD Continue home rosuvastatin, ASA DM2 HbA1c 5.3% (04/2021) Patient's home regimen held on admission Continue BSG checks, sliding-scale insulin, hypoglycemic protocol CHF Continue home lasix COPD Continue home inhaler regimen CKD3 Creatinine on admission at baseline Continue to monitor GERD Continue home famotidine History of PE Continue home eliquis History of breast cancer Continue home anastrozole FEN: heart healthy diet Code status: DNR/DNI DVT ppx: home eliquis PT/OT: ordered Dispo: med/surg telemetry given patient's hypokalemia History of Present Illness Primary Care Provider: Lucian Noe MD 85yo female with HTN, HLD, T2DM, CHF, CKD3, and history of PE (on eliquis) presents with a five-day history of rash on both ankles. Patient's rash started gradually as "a few pink dots" on both ankles but has progressed to multiple dark red spots. Patient notes the rash started becoming painful about two days ago. The rash is not itchy. Patient denies known contact with any allergen or new detergent, fabric, or other substance. Patient denies history of similar symptoms. Patient denies fever, fatigue, CP, SOB, congestion, sore throat, cough, abdominal pain, nausea, vomiting, constipation, diarrhea, dysuria, numbness, tingling, or weakness. No recent travel, no known tick bites, no sick contacts. Patient is noted with a history of breast cancer. Allergies Allergy/AdvReac Type Severity Reaction Status Date / Time nitroglycerin AdvReac Intermediate BP Verified 05/16/21 19:35 Decreases, HR Increases tramadol AdvReac Intermediate faint Verified 05/16/21 19:35 feeling, mind foggy not able to think Home Medications Medication Instructions Recorded Confirmed Type aspirin 81 mg tablet,delayed 81 mg PO QAM 12/13/17 05/16/21 History release calcium carbonate 600 mg-vitamin 1 cap PO QAM cap 12/13/17 05/16/21 History D3 25 mcg (1,000 unit) capsule rosuvastatin 40 mg tablet (Crestor) 40 mg PO HS 12/13/17 05/16/21 History anastrozole 1 mg tablet (Arimidex) 1 mg PO QAM 12/13/18 05/16/21 History furosemide 20 mg tablet 20 mg PO QAM 12/11/19 05/16/21 History metoclopramide HCl 10 mg tablet 5 mg PO QPM tab 12/11/19 05/16/21 History (Reglan) albuterol sulfate 90 mcg/actuation 2 puff INH Q4H PRN #8.5 gm 02/08/20 05/16/21 Rx aerosol inhaler (ProAir HFA) acetaminophen 650 mg 650 mg PO Q12H 08/07/20 05/16/21 History tablet,extended release loratadine 10 mg tablet 10 mg PO QAM 08/07/20 05/16/21 History fluticasone propionate 230 1 puff INHALATION BID #12 g 11/28/20 05/16/21 Rx mcg-salmeterol 21 mcg/actuation HFA inhaler (Advair HFA) metoprolol succinate 50 mg 50 mg PO TID #270 tab 01/15/21 05/16/21 Rx tablet,extended release 24 hr (Toprol XL) apixaban 5 mg tablet 5 mg PO BID #60 tab 03/04/21 05/16/21 Rx potassium chloride 20 mEq 20 meq PO QAM #30 tab 04/28/21 05/16/21 Rx tablet,extended release(part/cryst) famotidine 20 mg tablet (Pepcid) 20 mg PO BID 42 Days #84 tab 05/17/21 Rx prednisone 10 mg tablet 10 mg PO DAILY #70 tab 05/17/21 Rx Past Med/Surg History Medical History Anemia Asthma Breast carcinoma, lobular Carotid artery stenosis CHF (congestive heart failure) Chronic obstructive pulmonary disease CKD (chronic kidney disease), stage III Diabetes mellitus, type 2 Diverticular disease Gastroparesis GERD (gastroesophageal reflux disease) HTN (hypertension) Hyperlipidemia LDL goal <100 Long-term (current) use of anticoagulants, INR goal 2.0-3.0 Multiple pulmonary emboli Myocardial Infarction Open wound of left breast Osteoarthritis Septic shock Systolic CHF, chronic Surgical History H/O vascular surgery History of cardiac cath History of cataract surgery History of colonoscopy History of coronary artery bypass graft History of removal of Port-a-Cath Hx of lumpectomy S/P cholecystectomy S/P debridement S/P lymph node biopsy Family History Father Lung cancer Brother Prostate cancer Myocardial infarction Other No family history of adverse response to anesthesia Denies family history of Colon cancer Ovarian cancer Breast cancer Social History Smoking Status: Former smoker Tobacco Type: Cigarettes Second Hand Exposure: No; Hx Alcohol Use: No Hx Substance Use: No Preferred Language: [place] Communication Ability: Effective Visual Impairment: No Limitations Hearing Ability: Normal Alterations Expert Required: No Beliefs That Will Affect Care: None marital status: / Current Living Situation: Alone current occupational status: retired Feels Safe at Home: Yes Dental Care, Regularly: Yes Physical Activity Frequency: Does not Exercise Seatbelt Use: always Assistive Devices: Denture - Upper, Denture - Lower and Glasses Review of Systems Review of Systems: See HPI Physical Exam Physical Exam: Constitutional: well-appearing, no acute distress HEENT: NCAT, no conjunctival injection, no oropharyngeal edema or erythema CV: regular rhythm, no murmur appreciated, extremities well-perfused, no LE edema Resp: CTABL, no wheezes/rales/rhonchi appreciated, no increased work of breathing GI: soft, nondistended, nontender, BS normoactive MSK: no gross deformities appreciated Skin: petechial rash appreciated on medial and lateral aspect of both ankles, tender to palpation, no increased warmth to touch Neuro: alert, oriented, no focal neurologic deficit appreciated Results & Data Results & Data ([facility]) Vital Signs (Past 12 Hours) Vital Signs Temp Pulse Pulse Resp BP Pulse Ox 05/16/21 22:53 96 05/16/21 21:00 75 98 05/16/21 20:17 72 97 05/16/21 19:30 70 18 96 05/16/21 18:56 36.9 C 86 20 182/91 H 95 Supervising Physician Co-Signing Physician Notes Attending addendum: I have physically seen this patient, have supervised the medical residents activities, and agree with the H&P unless as otherwise noted. Assessment and Plan: Rash- Petechial rash bilateral lower extremities primarily involving ankles over the past 5 days, the become tender over the last 2 days. Presently on apixaban and aspirin Order peripheral smear Hypokalemia- Potassium 2.8 Given Klor-Con 40 mEq p.o. in the ED Order K riders x3 Repeat BMP in a.m. Hypomagnesemia- Magnesium 1.5 upon admission Give mag sulfate 1 g IV in ED Give additional 2 g IV CAD/hypertension/CHF Continue aspirin, Lasix and metoprolol History of PE- Continue Eliquis Remaining orders and notations as noted Resident Activity Tracking Resident Involvement: Resident Care Provided and [employer] Coverage Note Care Provided: Adult Hospital Medicine
[2021-05-16] MEDS ORDERED: MAGNESIUM SULFATE / D5W 1 GM/100 ML BAG IV ONE (23:21)
[2021-05-16] MEDS: POTASSIUM CHLORIDE / WTR 10 MEQ/100 ML PLCT IV SCH (23:37)
[2021-05-17] MEDS ORDERED: ACETAMINOPHEN 325 MG TAB PO PRN (01:45)
[2021-05-17] MEDS ORDERED: POLYETHYLENE (MIRALAX) 17 GM PACK PO PRN (01:45)
[2021-05-17] MEDS ORDERED: ALBUTEROL HFA 8 GM INHALER INH PRN (01:59)
[2021-05-17] MEDS ORDERED: GLUCAGON FOR INJ 1 MG VIAL SQ PRN (02:27)
[2021-05-17] MEDS ORDERED: GLUCOSE 40% GEL 15 GM TUBE PO PRN (02:27)
[2021-05-17] MEDS ORDERED: DEXTROSE 50% 50 ML SYRINGE IV PRN (02:27)
[2021-05-17] MEDS ORDERED: DC ALL PREVIOUSLY ORDERED DIABETES MEDS ONE (02:27)
[2021-05-17] MEDS ORDERED: CARBOHYDRATES FOR HYPOGLYCEMIA PO PRN (02:27)
[2021-05-17] MEDS ORDERED: GLUCOSE 10 TABS/TUBE PO PRN (02:27)
[2021-05-17 02:56] LABS: Calcium 8.6 mg/dl (8.5-10.1); Creatinine Clr Calc Pharmacy 49.8 ml/min; Est GFR (African American) 85.4 ml/min; Est GFR (Non-African American) 73.7 ml/min; Potassium 4.2 mmol/L (3.5-5.1)
[2021-05-17 03:15] LABS: Magnesium 2.7 mg/dl (1.7-2.4)
[2021-05-17] MEDS: POTASSIUM CHLORIDE / WTR 10 MEQ/100 ML PLCT IV SCH ×4 (06:14→07:23)
[2021-05-17 07:41] VITALS: TEMP 98.1
[2021-05-17 08:27] VITALS: BP 149/78; PULSE 69
[2021-05-17] MEDS ORDERED: LORATADINE 10 MG TAB PO SCH (09:00)
[2021-05-17] MEDS ORDERED: ANASTROZOLE 1 MG TAB PO SCH (09:00)
[2021-05-17] MEDS ORDERED: FLUTICASONE/VILANTEROL 200/25MCG 14 PUFFS/INHALER INH SCH (09:00)
[2021-05-17] MEDS ORDERED: ASPIRIN 81 MG ECTAB PO SCH (09:00)
[2021-05-17] MEDS ORDERED: POTASSIUM CHLORIDE CRTAB 20 MEQ TABCR PO SCH (09:00)
[2021-05-17] MEDS ORDERED: APIXABAN 5 MG TABLET PO SCH (09:00)
[2021-05-17] MEDS ORDERED: FUROSEMIDE 20 MG TAB PO SCH (09:00)
[2021-05-17] MEDS: INSULIN ASPART PER UNIT SC SCH ×2 (09:54→12:46)
[2021-05-17] MEDS: METOPROLOL SUCC 50MG EXT REL TAB PO SCH ×2 (09:55→14:09)
--- NOTE | 2021-05-17 11:19 | Electrocardiogram Report ---
Test Reason : Blood Pressure : / mmHG Vent. Rate : 073 BPM Atrial Rate : 073 BPM P-R Int : 202 ms QRS Dur : 078 ms QT Int : 392 ms P-R-T Axes : 001 012 115 degrees QTc Int : 431 ms Normal sinus rhythm Anterior infarct (cited on or before 16-MAY-2021) Poor R wave progression, consider anterior FL vs. lead placement vs. LVH Nonspecific T wave abnormality Abnormal ECG When compared with ECG of 31-JUL-2020 01:19, No significant change was found Confirmed by Danilo Solorio ([id number]) on 05/17/2021 11:18:43 AM Referred By: REFERRED SELF Confirmed By:Danilo Solorio
[2021-05-17] MEDS ORDERED: predniSONE 20 MG TAB PO ONE (11:45)
[2021-05-17 14:19] VITALS: O2SAT 96
--- NOTE | 2021-05-17 14:41 | Discharge Summary ---
Date of Service May 17, 2021 Admission HPI Per Admitting Provider 85yo female with HTN, HLD, T2DM, CHF, CKD3, and history of PE (on eliquis) presents with a five-day history of rash on both ankles. Patient's rash started gradually as "a few pink dots" on both ankles but has progressed to multiple dark red spots. Patient notes the rash started becoming painful about two days ago. The rash is not itchy. Patient denies known contact with any allergen or new detergent, fabric, or other substance. Patient denies history of similar symptoms. Patient denies fever, fatigue, CP, SOB, congestion, sore throat, cough, abdominal pain, nausea, vomiting, constipation, diarrhea, dysuria, n umbness, tingling, or weakness. No recent travel, no known tick bites, no sick contacts. Patient is noted with a history of breast cancer. 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 Lungs are clear to auscultation and appear unlabored Cardiac exam, Rhythm is regular.. No murmurs, rubs or gallops. Abdominal exam reveals normal bowel sounds, soft non tender, no masses Extremities are nonedematous and both pedal pulses are normal. Neurologic exam is alert and oriented, no focal loss of strength or sensation Skin is with palpable purpura to lower extremities Psychologically is without concerns for anxiety or depression. Discharge Data Allergies Allergy/AdvReac Type Severity Reaction Status Date / Time nitroglycerin AdvReac Intermediate BP Verified 05/16/21 19:35 Decreases, HR Increases tramadol AdvReac Intermediate faint Verified 05/16/21 19:35 feeling, mind foggy not able to think Consultations 05/16/21 23:06 ED Decision to Admit Stat Hospital Course (1) Rash: 85yo female with HTN, HLD, T2DM, CHF, CKD3, and history of PE (on eliquis) presents with a five-day history of rash on both ankles. On arrival to the ED, patient was noted with a potassium of 2.8 and a calcium of 5.5. Rash Patient with five-day history of petechial rash on both ankles with a two-day history of tenderness; seems to appear consistent with vasculitis, did so Echo and ruled out embolic source (although should be low due to chronic eliquis) sent labs for hep B C, RF, Cryoglobins, Complements, SUDARSHAN,DSDNA, SM IGG Started on prednisone 40 mg a day for one week then 30,20,10 each subsequent week will have outpt follow up with Dr Trinh this week left message with office Hypokalemia replete Hypocalcemia Calcium on admission 5.5, when corrected for hypoalbuminemia, 6.7 Calcium gluconate IV 1000mg administered in ED Ionized calcium minimally low at 1.10 recommend oral supplementation Hypomagnesemia replete HTN Continue home metoprolol HLD, CAD Continue home rosuvastatin, ASA DM2 HbA1c 5.3% (04/2021) Patient's home regimen CHF Continue home lasix COPD Continue home inhaler regimen CKD3 Creatinine on admission at baseline Continue to monitor GERD Continue home famotidine History of PE Continue home eliquis History of breast cancer Continue home anastrozole Code status: DNR/DNI Total Time Total Time Spent Total Time Spent (In Minutes): It required greater than 30 minutes to prepare this patient for discharge Discharge Plan Discharge Items Patient Disposition: Home - Self-Care Reason For Visit: RASH, HYPOKALEMIA, HYPOCALCEMIA Discharge Diagnosis: 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 The inflammation can cause the arana of the blood vessels to thicken, which reduces the width of the passageway through the vessel. If blood flow is restricted, it can result in organ and tissue damage. There are many types of vasculitis, and most of them are rare. Common vasculitis skin lesions are:red or purple dots(petechiae), usually most numerous on the legs. larger spots, about the size of the end of a finger (purpura), some of which look like large bruises. Less common vasculitis lesions are hives, an itchy lumpy rash and painful or tender lumps. A corticosteroid drug,such as prednisone, is the most common type of drug prescribed to control the inflammation associated with vasculitis. please eat a health diet and take a multiple vitamin that contains calcium If you do not hear from Dr Trinh's office by tuesday call to make an appointment. When you speak to the office ask if you should hold your blood thinner for one day prior in case you have your biopsy. Pending Studies at Discharge: No Studies:: send out blood work Stand-Alone Forms: My [facility] [employer], Smoking Cessation Medications and DC Order Prescriptions: New prednisone 10 mg tablet 10 mg PO DAILY Qty: 70 RF: 0 famotidine [Pepcid] 20 mg tablet 20 mg PO BID 42 Days Qty: 84 RF: 0 Continued anastrozole [Arimidex] 1 mg tablet 1 mg PO QAM RF: 0 aspirin 81 mg tablet,delayed release (DR/EC) 81 mg PO QAM RF: 0 calcium carbonate-vitamin D3 600mg (1,500mg) -1,000 unit capsule 1 cap PO QAM RF: 0 rosuvastatin [Crestor] 40 mg tablet 40 mg PO HS RF: 0 metoclopramide HCl [Reglan] 10 mg tablet 5 mg PO QPM RF: 0 furosemide 20 mg tablet 20 mg PO QAM RF: 0 albuterol sulfate [ProAir HFA] 90 mcg/actuation HFA aerosol inhaler 2 puff INH Q4H PRN (Reason: shortness of breath) Qty: 8.5 RF: 4 Advair HFA 230-21 mcg/actuation HFA aerosol inhaler 1 puff inhalation BID Qty: 12 RF: 2 metoprolol succinate [Toprol XL] 50 mg tablet extended release 24 hr 50 mg PO TID Qty: 270 RF: 3 apixaban 5 mg tablet 5 mg PO BID Qty: 60 RF: 6 potassium chloride 20 mEq tablet,ER particles/crystals 20 meq PO QAM Qty: 30 RF: 3 loratadine 10 mg tablet 10 mg PO QAM RF: 0 acetaminophen 650 mg tablet extended release 650 mg PO Q12H RF: 0 Discontinued famotidine 20 mg tablet 20 mg PO HS RF: 0 Discharge Orders: Discharge Order (Routine); Ordered 05/17/21 Ordered By: Bebo Real Admission Data Admit Date/Time: 05/17/21 00:55 Attending Provider: Bebo Real Admit Provider: Janes Lobo Primary Care Provider: Lucian Noe Other Providers: Silvano Byrd Other Interventions: Discharge Summary Assessment (RN) Last Done: 05/17/21 14:18 Coding Level of Care Code D/C DAY MANAGEMENT >30 MINS Diagnoses Rash R21
--- NOTE | 2021-05-17 20:40 | Billing Data ---
Date of Service May 17, 2021 Coding Level of Care Code INT OBSERVATION CARE 70M LVL 3
[2021-05-17] MEDS ORDERED: FAMOTIDINE 20 MG TAB PO SCH (21:00)
[2021-05-17] MEDS ORDERED: ROSUVASTATIN CALCIUM 20 MG TAB PO SCH (21:00)
[2021-05-17] MEDS ORDERED: METOCLOPRAMIDE HCL 5 MG TABLET PO SCH (21:00)
[2021-05-18 15:58] LABS: Hepatitis C IgG 13Yrs+Old_Rflx Neg (Neg)
[2021-05-18 15:59] LABS: Hepatitis B Surf Ag Rflx Conf Neg (Neg)
[2021-05-20 15:41] LABS: Anti Nuclear Antibody Screen NEGATIVE (NEGATIVE); Anti-dsDNA Recombinant 1 IU/mL; Complement C3 166 mg/dL; Complement Total(CH50) >60 U/mL (31-60); Hepatitis A Antibody IgM NON-REACTIVE (NON-REACTIVE); Hepatitis B Core Antibody IgM NON-REACTIVE (NON-REACTIVE); Rheumatoid Factor <14 IU/mL (<14)
[2021-05-25 08:16] LABS: % Cryocrit DNR; Cryoglobulin, QL Negative (Negative)
== END 2021-05-17 15:01 | disposition home or self-care (01) | DRG 546 ==
LOC: ED 18:46 → INTOOBSV 05-17 00:55 → SUATTDRO 05-17 00:55 → EDINP 05-17 00:55

== ENCOUNTER 2022-02-13 19:55 | Inpatient (IN) ==
--- NOTE | 2022-02-13 20:07 | Emergency Department Note ---
Impression & Plan Acute hypoxemic respiratory failure due to COVID-19, Pulmonary edema, Acute dehydration, Sepsis ED Provider Note NAME: NANCY STARKS AGE: 86 SEX: F : 1935 ARRIVES VIA: Walk-In INFORMANT: Patient, ED PROVIDER(S): Janes Saul MD Chief Complaint: Cough, confusion HPI: The patient does present with her daughter at bedside who has had a nonproductive cough beginning today. The patient had called her daughter about an issue with the TV and seemed very flustered which is was atypical for the patient per the daughter at bedside and thus presented and given these concerns presented here to the emergency department. Patient denies any chest pains or shortness of breath. Patient states that her sleep and appetite have been okay. Patient may was have a little bit of left greater than right lower extremity swelling but this is unchanged and primarily in the lower leg. No nausea or vomiting. No known sick contacts or recent travel. No self test for COVID. The patient was noted to be febrile in triage. The patient did not take anything for her symptoms at home. She did not take her evening medications. ROS: See HPI for pertinent positives and negatives. A total of 10 systems were re viewed and otherwise negative. Past medical history: See below Surgical history: See below Social history: See below Physical Exam: GENERAL: Mild tachypnea noted, wearing glasses and a mask. EYE EXAM: Normal conjunctiva. PERRL, no anisocoria and EOM's grossly intact w/o pain. NECK: Supple, no nuchal rigidity, no adenopathy, non-tender. No signs of meningismus. FROM of the neck with good chin to chest and neck extension. No stridor. LUNGS: Crackles at the bases. Mild tachypnea noted. HEART: Tachycardic and regular, no MRG. ABDOMEN: Abdomen soft, non-tender, normo-active bowel sounds, no masses, no rebound or guarding. BACK: No CVA TTP. SKIN: No rashes and no bruising. UPPER EXTREMITIES: Upper extremities are grossly normal. LOWER EXTREMITIES: Grossly normal, trace left pretibial edema from the granados down no calf pain erythema or crepitus, compartments are soft. NEURO EXAM: A&O x3, cranial nerves II-XII grossly intact, normal speech, moves all 4 extremities. Differential diagnoses: Sepsis, UTI, pneumonia, metabolic, electrolyte abnormalities, cardiac sources, intracerebral event, toxicologic, neurologic, as well as other pathologies. Course: Patient was seen and evaluated the bedside. Full history physical exam was performed. EKG interpreted by me Sinus tachycardia, rate of 117, normal intervals normal axis no ST elevations or T WI. Imaging Studies: See Below Cardiac monitoring: An order was placed for continuous cardiac monitoring. The monitor shows a rate of 124 with tachycardic and regular rhythm. MDM: Patient did have sepsis orders placed. Initial cefepime ordered. An initial 30 cc/kg bolus was avoided given the patient's history of CHF. Patient initially did receive a liter but prior to the full liter being dispensed I did reevaluate the patient the patient was becoming hypoxemic with increased work of breathing and gurgling sounds. Decision was made to place the patient on BiPAP. Patient is COVID-positive so dexamethasone was ordered along with the Tylenol. I did perform a bedside ultrasound which showed decreased EF likely consistent with patient's prior history of CHF but without pericardial effusion but the patient's IVC seem to flatten with inspiration. Do believe the patient would benefit from increased hydration at this time. The patient does have B-lines on exam but think that this is pulmonary edema or congestion secondary to the patient's COVID illness. Chest x-ray is consistent with this. Patient's blood work showed normal white count H&H and platelet count kidney function was unremarkable. Troponin was tracely elevated at 16.4. Procalcitonin was not elevated. The patient did receive an initial dose of cefepime as a precaution given the respiratory symptoms. Initial lactate was 0.7. Upon subsequent reassessment the patient has significant improvement in her symptoms and looks improved on the BiPAP. I did speak the on-call hospitalist Dr. Caballero and the patient was admitted to the medicine service. Critical Care: I have personally spent 65 minutes of critical care time in direct management of this patient. This includes bedside care, interpretation of diagnostic studies, and testing, discussion with consultants, patient, and family members, and other require inpatient management activities. This 65 minutes is in excess of all separately billable procedures. Past Med/Surg History Medical History Anemia Asthma Breast carcinoma, lobular Right. takes Arimidex daily Carotid artery stenosis CHF (congestive heart failure) Chronic obstructive pulmonary disease CKD (chronic kidney disease), stage III Diabetes mellitus, type 2 no medications -- diet controlled Diverticular disease Gastroparesis GERD (gastroesophageal reflux disease) HTN (hypertension) Hyperlipidemia LDL goal <100 Long-term (current) use of anticoagulants, INR goal 2.0-3.0 Multiple pulmonary emboli S/P surgical procedure (~5-10 years ago) reason for warfarin daily Myocardial Infarction [address]. [address] Viera Open wound of left breast hx Osteoarthritis Septic shock hx r/t UTI (2017) Systolic CHF, chronic Surgical History H/O vascular surgery port-a-cath insertion History of cardiac cath with stent following CABG with one stent. History of cataract surgery bilateral History of colonoscopy History of coronary artery bypass graft x2 vessels (1994) History of removal of Port-a-Cath Hx of lumpectomy right breast with lymph node removal S/P cholecystectomy Laprascopic S/P debridement right breast wound debridement + wound vac + skin graft from a cadaver. (multiple) S/P lymph node biopsy right breast & axillary Family History Father Lung cancer Brother Prostate cancer Myocardial infarction Other No family history of adverse response to anesthesia Denies family history of Colon cancer Ovarian cancer Breast cancer Social History Smoking Status: Former smoker Tobacco Type: Cigarettes Second Hand Exposure: No; Do You Dip or Chew Tobacco: No; Tobacco Cessation Education Requested by Patient: No Hx Alcohol Use: No Hx Substance Use: No Preferred Language: Ukrainian Communication Ability: Effective Visual Impairment: No Limitations Hearing Ability: Normal Supervisor Refining Required: No Beliefs That Will Affect Care: None marital status: / Current Living Situation: Alone current occupational status: retired Feels Safe at Home: Yes Safety Concerns: Feels Safe At This Time Dental Care, Regularly: Yes Physical Activity Frequency: Does not Exercise Seatbelt Use: always Assistive Devices: None Allergies Allergies Allergy/AdvReac Type Severity Reaction Status Date / Time nitroglycerin AdvReac Intermediate BP Verified 02/13/22 21:25 Decreases, HR Increases tramadol AdvReac Intermediate faint Verified 02/13/22 21:25 feeling, mind foggy not able to think Home Meds Home Medications Medication Instructions Recorded Confirmed aspirin 81 mg tablet,delayed 81 mg PO QAM 12/13/17 02/13/22 release rosuvastatin 40 mg tablet (Crestor) 40 mg PO HS 12/13/17 02/13/22 anastrozole 1 mg tablet (Arimidex) 1 mg PO QAM 12/13/18 02/13/22 furosemide 20 mg tablet 20 mg PO QAM 12/11/19 02/13/22 metoclopramide HCl 10 mg tablet 5 mg PO QPM 12/11/19 02/13/22 (Reglan) acetaminophen 650 mg 650 mg PO Q12H 08/07/20 02/13/22 tablet,extended release calcium carbonate 600 mg-vitamin 1 cap PO QAM 11/09/21 02/13/22 D3 25 mcg (1,000 unit) capsule famotidine 20 mg tablet 20 mg PO DAILY 02/08/22 02/13/22 Previous Rx's Medication Instructions Recorded apixaban 5 mg tablet 5 mg PO BID #60 tabs 10/02/21 metoprolol succinate 50 mg 50 mg PO TID #270 tabs 10/02/21 tablet,extended release 24 hr (Toprol XL) potassium chloride 20 mEq 20 meq PO QAM #30 tabs 12/28/21 tablet,extended release(part/cryst) albuterol sulfate 90 mcg/actuation 2 puff inhalation Q4H PRN 02/05/22 aerosol inhaler (ProAir HFA) shortness of breath #8.5 grams fluticasone propionate 230 1 puff inhalation BID #12 grams 02/05/22 mcg-salmeterol 21 mcg/actuation HFA inhaler (Advair HFA) Results & Data (ED) Vital Signs Vital Signs - 24 hr 02/13/22 19:57 02/13/22 21:38 02/13/22 21:45 Temperature 38.3 C H Temperature Source Temporal Artery Scan Pulse Rate 121 H Pulse Rate [Apical] 114 H Pulse Rate [Finger] Pulse Rhythm Regular Pulse Strength Normal Respiratory Rate 20 34 H Respiratory Effort / Characteristics Non-Labored Spontaneous Non-Labored Respiratory Depth Normal Normal Respiratory Pattern Regular Blood Pressure 158/99 H Blood Pressure [Left Arm] 184/102 H Blood Pressure Mean 118 Blood Pressure Mean [Left Arm] 129 Blood Pressure Position Sitting Pulse Oximetry 94 99 Oxygen Delivery Method Room Air BiPAP BiPAP Fraction of Inspired Oxygen 45 45 SaO2/FiO2 Ratio 220 Sepsis Recent Fever Within 48 Hours No Sepsis New/Unexplained Change in Mental Status N/A Sepsis Action Taken by Nursing No Action Required 02/13/22 21:43 02/13/22 21:47 02/13/22 22:00 Temperature Temperature Source Pulse Rate 116 H Pulse Rate [Apical] Pulse Rate [Finger] 116 H Pulse Rhythm Pulse Strength Respiratory Rate 31 H 30 H Respiratory Effort / Characteristics Spontaneous Labored Short of Breath Spontaneous Labored Short of Breath Respiratory Depth Respiratory Pattern Tachypnea Blood Pressure 162/93 H Blood Pressure [Left Arm] Blood Pressure Mean 116 Blood Pressure Mean [Left Arm] Blood Pressure Position Pulse Oximetry 98 98 Oxygen Delivery Method BiPAP Fraction of Inspired Oxygen 45 45 SaO2/FiO2 Ratio Sepsis Recent Fever Within 48 Hours Sepsis New/Unexplained Change in Mental Status Sepsis Action Taken by Nursing 02/13/22 22:00 02/13/22 22:31 02/13/22 22:31 Temperature Temperature Source Pulse Rate 116 H 111 H Pulse Rate [Apical] Pulse Rate [Finger] Pulse Rhythm Pulse Strength Respiratory Rate 31 H 26 H Respiratory Effort / Characteristics Respiratory Depth Respiratory Pattern Blood Pressure 116/81 Blood Pressure [Left Arm] Blood Pressure Mean 92 Blood Pressure Mean [Left Arm] Blood Pressure Position Pulse Oximetry 99 98 Oxygen Delivery Method BiPAP BiPAP Fraction of Inspired Oxygen 45 45 SaO2/FiO2 Ratio Sepsis Recent Fever Within 48 Hours Sepsis New/Unexplained Change in Mental Status Sepsis Action Taken by Assisted Medications Current Medication List: was personally reviewed by me Laboratory Data Attestation: I reviewed the patient's lab results. Result diagrams: 02/14/22 09:53 02/14/22 09:53 Lab Results 02/13/22 02/13/22 02/13/22 Range/Units 20:41 20:41 20:41 WBC 7.34 (4.8-10.8) K/ul RBC 4.84 (3.93-5.22) M/uL Hgb 14.6 (12.0-16.0) g/dl Hct 43.3 (34.1-44.9) % MCV 89.5 (80.0-100.0) fL MCH 30.2 (25.0-34.0) pg MCHC 33.7 (32.0-36.0) g/dL RDW Std Deviation 44.3 (36.4-46.3) fL RDW Coeff of Cathy 13.5 (11.5-14.5) % Plt Count 176 (130-400) K/uL MPV 9.3 L (9.4-12.3) fL Immature Gran % (Auto) 0.1 % Neut % (Auto) 74.4 % Lymph % (Auto) 9.0 % Grayson % (Auto) 9.7 % Eos % (Auto) 6.3 % Baso % (Auto) 0.5 % Neut # (Auto) 5.46 (1.4-6.5) K/uL Lymph # (Auto) 0.66 L (1.2-3.4) K/uL Grayson # (Auto) 0.71 (0.24-0.82) K/uL Eos # (Auto) 0.46 (0-0.50) K/uL Baso # (Auto) 0.04 (0-0.2) K/uL Immature Gran # (Auto) 0.01 (0.00-0.02) K/uL Sodium 136 (136-145) mmol/L Potassium 3.8 (3.5-5.1) mmol/L Chloride 104 (98-107) mmol/L Carbon Dioxide 23 (21-32) mmol/L Anion Gap 9 (3-11) BUN 12 (6-23) mg/dl Creatinine 0.75 (0.6-1.2) mg/dl Est Cr Clr Drug Dosing 50.0 ml/min Est GFR ( Amer) 84.8 ml/min Est GFR (Non-Af Amer) 73.2 ml/min BUN/Creatinine Ratio 16.0 (10-20) Glucose 113 H (70-99(Fasting)) mg/dl Lactate (0.4-2.0) mmol/L Calcium 8.8 (8.5-10.1) mg/dl Magnesium 2.2 (1.7-2.4) mg/dl Total Bilirubin 0.5 (0.2-1.0) mg/dl Direct Bilirubin 0.0 (0-0.2) mg/dl AST 25 (13-39) U/L ALT 19 (7-52) U/L Alkaline Phosphatase 94 (34-104) U/L Lactate Dehydrogenase (86-244) U/L Troponin I High Sens 16.4 H (0-14) pg/ml C-Reactive Protein (0-0.5) mg/dl B-Natriuretic Peptide (0-100) pg/ml Total Protein 7.1 (6.0-8.3) gm/dl Albumin 4.2 (3.4-5.0) gm/dl Procalcitonin < 0.05 (0-0.5) ng/ml Urine Color Urine Appearance (Clear) Urine pH (4.5-7.5) Ur Specific Maple (1.000-1.030) Urine Protein (Negative) Urine Glucose (UA) (Negative) Urine Ketones (Negative) Urine Blood (Negative) Urine Nitrite (Negative) Urine Bilirubin (Negative) Urine Urobilinogen (Negative) Ur Leukocyte Esterase (Negative) Urine WBC (Auto) (0-5) /hpf Urine RBC (Auto) (0-4) /hpf U Hyaline Cast (Auto) (0-5) /lpf U Epithel Cells (Auto) (0-5) /lpf Urine Bacteria (Auto) (Negative) SARS-CoV-2, RNA, NAAT (NEGATIVE) 02/13/22 02/13/22 02/13/22 Range/Units 20:41 20:41 20:41 WBC (4.8-10.8) K/ul RBC (3.93-5.22) M/uL Hgb (12.0-16.0) g/dl Hct (34.1-44.9) % MCV (80.0-100.0) fL MCH (25.0-34.0) pg MCHC (32.0-36.0) g/dL RDW Std Deviation (36.4-46.3) fL RDW Coeff of Cathy (11.5-14.5) % Plt Count (130-400) K/uL MPV (9.4-12.3) fL Immature Gran % (Auto) % Neut % (Auto) % Lymph % (Auto) % Grayson % (Auto) % Eos % (Auto) % Baso % (Auto) % Neut # (Auto) (1.4-6.5) K/uL Lymph # (Auto) (1.2-3.4) K/uL Grayson # (Auto) (0.24-0.82) K/uL Eos # (Auto) (0-0.50) K/uL Baso # (Auto) (0-0.2) K/uL Immature Gran # (Auto) (0.00-0.02) K/uL Sodium (136-145) mmol/L Potassium (3.5-5.1) mmol/L Chloride (98-107) mmol/L Carbon Dioxide (21-32) mmol/L Anion Gap (3-11) BUN (6-23) mg/dl Creatinine (0.6-1.2) mg/dl Est Cr Clr Drug Dosing ml/min Est GFR ( Amer) ml/min Est GFR (Non-Af Amer) ml/min BUN/Creatinine Ratio (10-20) Glucose (70-99(Fasting)) mg/dl Lactate 0.7 (0.4-2.0) mmol/L Calcium (8.5-10.1) mg/dl Magnesium (1.7-2.4) mg/dl Total Bilirubin (0.2-1.0) mg/dl Direct Bilirubin (0-0.2) mg/dl AST (13-39) U/L ALT (7-52) U/L Alkaline Phosphatase (34-104) U/L Lactate Dehydrogenase (86-244) U/L Troponin I High Sens (0-14) pg/ml C-Reactive Protein 2.45 H (0-0.5) mg/dl B-Natriuretic Peptide 306 H (0-100) pg/ml Total Protein (6.0-8.3) gm/dl Albumin (3.4-5.0) gm/dl Procalcitonin (0-0.5) ng/ml Urine Color Urine Appearance (Clear) Urine pH (4.5-7.5) Ur Specific Maple (1.000-1.030) Urine Protein (Negative) Urine Glucose (UA) (Negative) Urine Ketones (Negative) Urine Blood (Negative) Urine Nitrite (Negative) Urine Bilirubin (Negative) Urine Urobilinogen (Negative) Ur Leukocyte Esterase (Negative) Urine WBC (Auto) (0-5) /hpf Urine RBC (Auto) (0-4) /hpf U Hyaline Cast (Auto) (0-5) /lpf U Epithel Cells (Auto) (0-5) /lpf Urine Bacteria (Auto) (Negative) SARS-CoV-2, RNA, NAAT (NEGATIVE) 02/13/22 02/13/22 02/13/22 Range/Units 20:41 20:49 21:30 WBC (4.8-10.8) K/ul RBC (3.93-5.22) M/uL Hgb (12.0-16.0) g/dl Hct (34.1-44.9) % MCV (80.0-100.0) fL MCH (25.0-34.0) pg MCHC (32.0-36.0) g/dL RDW Std Deviation (36.4-46.3) fL RDW Coeff of Cathy (11.5-14.5) % Plt Count (130-400) K/uL MPV (9.4-12.3) fL Immature Gran % (Auto) % Neut % (Auto) % Lymph % (Auto) % Grayson % (Auto) % Eos % (Auto) % Baso % (Auto) % Neut # (Auto) (1.4-6.5) K/uL Lymph # (Auto) (1.2-3.4) K/uL Grayson # (Auto) (0.24-0.82) K/uL Eos # (Auto) (0-0.50) K/uL Baso # (Auto) (0-0.2) K/uL Immature Gran # (Auto) (0.00-0.02) K/uL Sodium (136-145) mmol/L Potassium (3.5-5.1) mmol/L Chloride (98-107) mmol/L Carbon Dioxide (21-32) mmol/L Anion Gap (3-11) BUN (6-23) mg/dl Creatinine (0.6-1.2) mg/dl Est Cr Clr Drug Dosing ml/min Est GFR ( Amer) ml/min Est GFR (Non-Af Amer) ml/min BUN/Creatinine Ratio (10-20) Glucose (70-99(Fasting)) mg/dl Lactate (0.4-2.0) mmol/L Calcium (8.5-10.1) mg/dl Magnesium (1.7-2.4) mg/dl Total Bilirubin (0.2-1.0) mg/dl Direct Bilirubin (0-0.2) mg/dl AST (13-39) U/L ALT (7-52) U/L Alkaline Phosphatase (34-104) U/L Lactate Dehydrogenase 309 H (86-244) U/L Troponin I High Sens (0-14) pg/ml C-Reactive Protein (0-0.5) mg/dl B-Natriuretic Peptide (0-100) pg/ml Total Protein (6.0-8.3) gm/dl Albumin (3.4-5.0) gm/dl Procalcitonin (0-0.5) ng/ml Urine Color Yellow Urine Appearance Clear (Clear) Urine pH 6.5 (4.5-7.5) Ur Specific Maple 1.015 (1.000-1.030) Urine Protein Trace H (Negative) Urine Glucose (UA) Negative (Negative) Urine Ketones Trace H (Negative) Urine Blood 1+ H (Negative) Urine Nitrite Negative (Negative) Urine Bilirubin Negative (Negative) Urine Urobilinogen Negative (Negative) Ur Leukocyte Esterase Negative (Negative) Urine WBC (Auto) 1-5 (0-5) /hpf Urine RBC (Auto) 10-30 H (0-4) /hpf U Hyaline Cast (Auto) 0 (0-5) /lpf U Epithel Cells (Auto) 10-20 H (0-5) /lpf Urine Bacteria (Auto) Negative (Negative) SARS-CoV-2, RNA, NAAT POSITIVE A* (NEGATIVE) Administered Medications Albuterol (Albut/Ipratrop 3mg/0.5mg Neb 3 Ml Vial) 3 ml INH Q6R ELÍAS Stop: 03/16/22 00:59 Last Admin: 02/14/22 12:33 Dose: 3 ml Documented By: CMLouie Admin: 02/14/22 07:14 Dose: 3 ml Documented By: Admin: 02/14/22 02:36 Dose: 3 ml Documented By: ROMAINE Anastrozole (Anastrozole 1 Mg Tab) 1 mg PO QAM ELÍAS Stop: 03/16/22 08:59 Last Admin: 02/14/22 09:06 Dose: 1 mg Documented By: ESTEFANI Co-signed By: TITO Apixaban (Apixaban 5 Mg Tablet) 5 mg PO BID ELÍAS Stop: 03/16/22 00:48 Last Admin: 02/14/22 08:20 Dose: 5 mg Documented By: Admin: 02/14/22 01:43 Dose: 5 mg Documented By: LUPE Aspirin (Aspirin 81 Mg Ectab) 81 mg PO QAM ELÍAS Stop: 03/16/22 08:59 Last Admin: 02/14/22 08:20 Dose: 81 mg Documented By: ESTEFANI Famotidine (Famotidine 20 Mg Tab) 20 mg PO DAILY ELÍAS Stop: 03/16/22 08:59 Last Admin: 02/14/22 08:20 Dose: 20 mg Documented By: ESTEFANI Fluticasone/Vilanterol (Fluticasone/Vilanterol 100/25mcg 14 Puffs/Inhaler) 1 puffs INH DAILY ELÍAS Stop: 03/16/22 08:59 Last Admin: 02/14/22 08:20 Dose: 1 puffs Documented By: ESTEFANI Furosemide (Furosemide 40 Mg/4 Ml Vial) 40 mg IV Q12 ELÍAS Stop: 03/16/22 07:59 Last Admin: 02/14/22 09:53 Dose: 40 mg Documented By: ESTEFANI Guaifenesin (Guaifenesin 600 Mg Tabcr) 1,200 mg PO Q12 ELÍAS Stop: 03/16/22 08:59 Last Admin: 02/14/22 08:20 Dose: 1,200 mg Documented By: ESTEFANI Lisinopril (Lisinopril 5 Mg Tab) 5 mg PO QAM ELÍAS Stop: 03/16/22 12:44 Last Admin: 02/14/22 13:04 Dose: 5 mg Documented By: ESTEFANI Metoprolol Succinate (Metoprolol Succ 50mg Ext Rel Tab) 50 mg PO TID ELÍAS Stop: 03/16/22 08:59 Last Admin: 02/14/22 13:04 Dose: 50 mg Documented By: Admin: 02/14/22 08:20 Dose: 50 mg Documented By: ESTEFANI Potassium Chloride (Potassium Chloride Crtab 20 Meq Tabcr) 20 meq PO BID ELÍAS Stop: 03/16/22 08:59 Last Admin: 02/14/22 08:23 Dose: 20 meq Documented By: ESTEFANI Discontinued Medications Albuterol (Albut/Ipratrop 3mg/0.5mg Neb 3 Ml Vial) 3 ml NEB NOW STA; Protocol Stop: 02/13/22 21:24 Last Admin: 02/13/22 21:38 Dose: 3 ml Documented By: APRIL Dexamethasone Sodium Phosphate (DexamethasonePf 10 Mg/Ml Vial) 6 mg IV NOW ONE Stop: 02/13/22 21:24 Last Admin: 02/13/22 21:44 Dose: 6 mg Documented By: APRIL Sodium Chloride (Nss 1000ml) 1,000 mls @ 999 mls/hr IV .Q1H1M ELÍAS Stop: 02/13/22 21:30 Last Infusion: 02/13/22 21:50 Dose: 0 mls/hr Documented By: Admin: 02/13/22 20:50 Dose: 999 mls/hr Documented By: MAI Cefepime HCl (Maxipime) 2,000 mg in 20 mls @ 5 mls/min IV NOW STA; Protocol Stop: 02/13/22 20:27 Last Admin: 02/13/22 21:33 Dose: 5 mls/min Documented By: APRIL Acetaminophen (Ofirmev) 1,000 mg in 100 mls @ 400 mls/hr IV NOW STA Stop: 02/13/22 21:37 Last Infusion: 02/13/22 22:01 Dose: 0 mls/hr Documented By: Admin: 02/13/22 21:44 Dose: 400 mls/hr Documented By: APRIL Sodium Chloride (Nss 1000ml) 500 mls @ 500 mls/hr IV .Q1H ONE Stop: 02/13/22 23:00 Last Admin: 02/13/22 22:47 Dose: Not Given Documented By: APRIL Ceftriaxone Sodium 2,000 mg/ (Dextrose) 70 mls @ 100 mls/hr IV Q24H ELÍAS; Protocol Stop: 02/21/22 04:59 Last Infusion: 02/14/22 05:42 Dose: 0 mls/hr Documented By: Admin: 02/14/22 04:52 Dose: 100 mls/hr Documented By: LUPE Azithromycin 500 mg/ Dextrose 255 mls @ 125 mls/hr IV Q24H ELÍAS Stop: 02/21/22 03:59 Last Infusion: 02/14/22 07:08 Dose: 0 mls/hr Documented By: Admin: 02/14/22 04:52 Dose: 125 mls/hr Documented By: LUPE Remdesivir 200 mg/ Sodium (Chloride) 250 mls @ 125 mls/hr IV ONE ONE; Protocol Stop: 02/14/22 03:29 Last Infusion: 02/14/22 04:58 Dose: 0 mls/hr Documented By: Admin: 02/14/22 01:43 Dose: 125 mls/hr Documented By: LUPE Dexamethasone 6 mg/ Syringe 1.5 mls @ 1 mls/min IV DAILY ELÍAS Stop: 02/24/22 08:59 Last Admin: 02/14/22 08:23 Dose: 1 mls/min Documented By: ESTEFANI Parenteral Electrolytes (Normosol-R) 1,000 mls @ 80 mls/hr IV .[id number] ELÍAS Stop: 02/15/22 01:48 Last Infusion: 02/14/22 08:19 Dose: 0 mls/hr Documented By: Admin: 02/14/22 01:44 Dose: 80 mls/hr Documented By: LUPE Ioversol (Optiray 320 500ml) 115 ml IV ONCE ONE Stop: 02/14/22 04:37 Last Admin: 02/14/22 04:36 Dose: 115 ml Documented By: ANTONINO Pneumococcal Polyvalent Vaccine (Pneumococcal Polysaccharide Vaccine 25mcg/0.5ml Vial/Syr) 25 mcg IM .ONCE ONE Stop: 02/14/22 09:01 Last Admin: 02/14/22 07:07 Dose: Not Given Documented By: ESTEFANI Imaging Data Radiologist's Impression: Chest X-Ray 02/13/22 20:25 SINGLE VIEW CHEST CLINICAL HISTORY: Sepsis. FINDINGS: An AP, portable, upright chest radiograph is compared to study dated 06/08/2021 and correlated with chest CT dated 06/15/2018. The patient is status post midline sternotomy. The heart is enlarged noting atherosclerotic calcification of the thoracic aorta. A coronary artery stent is noted. There is pulmonary vascular congestion. Bilateral airspace opacities are noted. There are small pleural effusions with dependent consolidation. No pneumothorax is seen. The skeletal structures are osteopenic. The bony thorax is grossly intact. Art hritic change is seen in the shoulders. IMPRESSION: 1. Cardiomegaly with evidence of congestive failure. 2. Mild airspace opacities likely represent pulmonary edema. Correlate clinical history superimposed pneumonitis. 3. Small pleural effusions. ACT 112: Negative or not required by law. Electronically signed by: Kodi Ro M.D. 02/14/2022 7:48 AM Discharge Plan Visit Data Chief Complaint: Confusion Stated Complaint: FEELING WEIRD, CONFUSION ED Provider: Janes Saul Discharge Problem: Acute hypoxemic respiratory failure due to COVID-19, Pulmonary edema, Acute dehydration, Sepsis Patient Disposition: Admitted As Inpatient Discharge Instructions Interventions: ED Discharge Assessment Last Done: 02/14/22 00:04
[2022-02-13] MEDS ORDERED: CEFEPIME 2,000 MG/20 ML VIAL IV STA (20:24)
[2022-02-13] MEDS ORDERED: SODIUM CHLORIDE 0.9% 1000ML 1,000 ML IV SCH (20:30)
[2022-02-13 21:12] LABS: Basophils # (auto) 0.04 K/uL (0-0.2); Basophils % (auto) 0.5 %; Eosinophils # (auto) 0.46 K/uL (0-0.50); Eosinophils % (auto) 6.3 %; Hematocrit (blood only) 43.3 % (34.1-44.9); Hemoglobin 14.6 g/dl (12.0-16.0); Immature Granulocytes # (auto) 0.01 K/uL (0.00-0.02); Immature Granulocytes % (auto) 0.1 %; Lymphocytes # (auto) 0.66 K/uL (1.2-3.4); Mean Corpuscular Hemoglobin 30.2 pg (25.0-34.0); Mean Corpuscular Hgb Conc 33.7 g/dL (32.0-36.0); Mean Corpuscular Volume 89.5 fL (80.0-100.0); Mean Platelet Volume 9.3 fL (9.4-12.3); Monocytes # (auto) 0.71 K/uL (0.24-0.82); Monocytes % (auto) 9.7 %; Neutrophils # (auto) 5.46 K/uL (1.4-6.5); Neutrophils % (auto) 74.4 %; Platelet Count 176 K/uL (130-400); RDW Coefficient of Variation 13.5 % (11.5-14.5); RDW Standard Deviation 44.3 fL (36.4-46.3); Red Blood Count 4.84 M/uL (3.93-5.22); White Blood Count 7.34 K/ul (4.8-10.8)
[2022-02-13] MEDS ORDERED: ALBUT/IPRATROP 3MG/0.5MG NEB 3 ML VIAL NEB STA (21:23)
[2022-02-13] MEDS ORDERED: ACETAMINOPHEN 1,000 MG/100 ML VIAL IV STA (21:23)
[2022-02-13] MEDS ORDERED: dexAMETHasone**PF** 10 MG/ML VIAL IV ONE (21:23)
[2022-02-13 21:36] LABS: Albumin Level 4.2 gm/dl (3.4-5.0); Bilirubin,Total 0.5 mg/dl (0.2-1.0); Calcium 8.8 mg/dl (8.5-10.1); Est GFR (African American) 84.8 ml/min; Est GFR (Non-African American) 73.2 ml/min; Magnesium 2.2 mg/dl (1.7-2.4); Potassium 3.8 mmol/L (3.5-5.1); Total Protein 7.1 gm/dl (6.0-8.3)
[2022-02-13 21:38] LABS: Troponin I High Sensitivity 16.4 pg/ml (0-14)
[2022-02-13] MEDS ORDERED: SODIUM CHLORIDE 0.9% 1000ML 500 ML IV ONE (22:01)
--- NOTE | 2022-02-13 22:11 | History & Physical Report ---
Date of Service February 13, 2022 Assessment & Plan (1) Acute hypoxemic respiratory failure due to COVID-19: Plan: No home O2 requirements. Cough and confusion x1 day, with COVID-19 positive and CXR showing multifocal pneumonia (R>L). Suspect primary COVID-19 pneumonia rather than bacterial superimposed pneumonia, but will cover for both at this time. - currently comfortable and satting well on BiPAP 8/5 at 45% FiO2 - continue for now - s/p Cefepime x1 in ED - continue with Ceftriaxone 2g IV daily (starting tomorrow AM) and Azithromycin 500mg IV daily (starting now) - trend blood cx - s/p NSS 1L bolus in ED - continue with light IV hydration using Normosol-R @80cc/hr x2L - cautious use of IV fluids given COVID-19 pneumonia as well as CHF history - currently patient appears dry on exam and is septic and thus will initiate IVFs - received Decadron 6mg IV x1 in ED - continue with 6mg IV daily - start Remdesivir x5 days - Duonebs Q6H scheduled + Q2H PRN - pulm toilet: flutter valve, incentive spirometry, Mucinex BID - CRP 2.45 - monitor daily - check d-dimer/LDH/fibrinogen (2) Sepsis: Plan: Secondary to COVID-19 pneumonia. Plan as above. Cautious maintenance IVFs as stated above. (3) Bilateral pleural effusion: Plan: Small bilateral pleural effusions per CXR, as well as ?pulmonary edema. BNP mildly elevated at 306. However patient appears more dry on exam. - check CT chest to help further delineate - cautious maintenance IVFs as stated above (4) Metabolic encephalopathy: Plan: Resolved with BiPAP. Secondary to COVID-19 Pneumonia. - continue BiPAP for now as stated above (5) CHF (congestive heart failure): Plan: Chronic, compensated. HFmrEF, with last TTE in 04/2021 showing EF 45-50%. - check TTE - continue home Toprol XL - hold Lasix for now due to sepsis/pneumonia (6) Multiple pulmonary emboli: Plan: History of multiple PEs. Per patient and daughter she was told by doctor that she needs indefinite anti-coagulation. - continue home Eliquis (7) Atherosclerotic heart disease of [place] coronary artery without angina pectoris: Plan: Continue home baby Aspirin (8) Chronic obstructive pulmonary disease: Plan: No previous PFTs per perusal of the chart. Patient has 20 pack year smoking history, quit 20 years ago, and seldom uses PRN Albuterol. - Duonebs regimen as stated above (9) HTN (hypertension): Plan: Continue home Toprol XL as stated above (10) Hyperlipidemia LDL goal <100: Plan: Continue home Rosuvastatin. (11) CKD (chronic kidney disease), stage III: Plan: Chronic. Although eGFR >60 here. (12) GERD (gastroesophageal reflux disease): Plan: Continue home Pepcid (13) Gastroparesis: Plan: Continue home Reglan for now. - note: chronic Reglan can lead to EPS - consider adjustment of chronic regimen, per PCP Plan FEN/GI: heart-healthy diet, Normosol-R @80cc/hr x2L DVT Prophylaxis: home Eliquis Code Status: full code - discussed with patient and daughter (POA) Disposition: PCU History of Present Illness Chief Complaint: confusion Primary Care Provider: Lucian Noe MD Phill Valdez is an 86yo female with PMHx significant for CAD, ischemic cardiomyopathy, HFmrEF (EF 45-50% per TTE in 04/2021), h/o breast cancer (on Anastrozole), HTN, HLD, CKD3, gastroparesis, and history of PE (on eliquis). She presented to [facility] ED on 02/13 for acute onset of confusion earlier in the day, as well as generalized pain, dry cough and dehydration. Patient also reports chills throughout the day but denies fevers. Denies any symptoms before today - was feeling well overall. Denies recent respiratory symptoms, fever/chills, chest pain, SOB, N/V, abdominal pain, dysuria or rash. Denies orthopnea or LE edema. Patient has a 20 pack year smoking history and quit 20 years ago. Denies alcohol/drug use. Patient lives alone and is proficient in ADLs/iADLs without walking assist and does not fall. In the ED the patient was septic on presentation with T38.3C, HR 121, BP 184/102, and required initiation of BiPAP. Labs significant for lymphopenia (0.66), no leukocytosis/leukopenia. Lactate 0.7 and procalcitonin <.05. Also with slightly elevated hsTroponin of 16.4. CBC/BMP otherwise unremarkable. COVID-19 POSITIVE. CXR with patchy opacities throughout right lung and in left base, as well as mild bilateral pleural effusions. Blood cx collected and pending. Patient received Decadron 6mg IV x1, Albuterol nebs x1, and Tylenol 1g IV x1. Was also given NSS 1L bolus and started on Cefepime. Allergies Allergy/AdvReac Type Severity Reaction Status Date / Time nitroglycerin AdvReac Intermediate BP Verified 02/13/22 21:25 Decreases, HR Increases tramadol AdvReac Intermediate faint Verified 02/13/22 21:25 feeling, mind foggy not able to think Home Medications Medication Instructions Recorded Confirmed Type aspirin 81 mg tablet,delayed 81 mg PO QAM 12/13/17 02/13/22 History release rosuvastatin 40 mg tablet (Crestor) 40 mg PO HS 12/13/17 02/13/22 History anastrozole 1 mg tablet (Arimidex) 1 mg PO QAM 12/13/18 02/13/22 History furosemide 20 mg tablet 20 mg PO QAM 12/11/19 02/13/22 History metoclopramide HCl 10 mg tablet 5 mg PO QPM 12/11/19 02/13/22 History (Reglan) acetaminophen 650 mg 650 mg PO Q12H 08/07/20 02/13/22 History tablet,extended release apixaban 5 mg tablet 5 mg PO BID #60 tabs 10/02/21 02/13/22 Rx metoprolol succinate 50 mg 50 mg PO TID #270 tabs 10/02/21 02/13/22 Rx tablet,extended release 24 hr (Toprol XL) calcium carbonate 600 mg-vitamin 1 cap PO QAM 11/09/21 02/13/22 History D3 25 mcg (1,000 unit) capsule potassium chloride 20 mEq 20 meq PO QAM #30 tabs 12/28/21 02/13/22 Rx tablet,extended release(part/cryst) albuterol sulfate 90 mcg/actuation 2 puff inhalation Q4H PRN 02/05/22 02/13/22 Rx aerosol inhaler (ProAir HFA) shortness of breath #8.5 grams fluticasone propionate 230 1 puff inhalation BID #12 grams 02/05/22 02/13/22 Rx mcg-salmeterol 21 mcg/actuation HFA inhaler (Advair HFA) famotidine 20 mg tablet 20 mg PO DAILY 02/08/22 02/13/22 History Past Med/Surg History Medical History Anemia Asthma Breast carcinoma, lobular Right. takes Arimidex daily Carotid artery stenosis CHF (congestive heart failure) Chronic obstructive pulmonary disease CKD (chronic kidney disease), stage III Diabetes mellitus, type 2 no medications -- diet controlled Diverticular disease Gastroparesis GERD (gastroesophageal reflux disease) HTN (hypertension) Hyperlipidemia LDL goal <100 Long-term (current) use of anticoagulants, INR goal 2.0-3.0 Multiple pulmonary emboli S/P surgical procedure (~5-10 years ago) reason for warfarin daily Myocardial Infarction [address]. [address] Viera Open wound of left breast hx Osteoarthritis Septic shock hx r/t UTI (2017) Systolic CHF, chronic Surgical History H/O vascular surgery port-a-cath insertion History of cardiac cath with stent following CABG with one stent. History of cataract surgery bilateral History of colonoscopy History of coronary artery bypass graft x2 vessels (1994) History of removal of Port-a-Cath Hx of lumpectomy right breast with lymph node removal S/P cholecystectomy Laprascopic S/P debridement right breast wound debridement + wound vac + skin graft from a cadaver. 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 NAD. Cooperative. Comfortable on BiPAP. HEENT: Atraumatic, normocephalic. Pulm: Crackles throughout right lung and left base. No wheezes. Symmetrical chest rise. No increase work of breathing. No respiratory distress. Cardiac: RRR, -mrg. Radial pulses intact and symmetrical. No JVD. No LE edema. Abdominal: soft, non-tender, non-distended, BS x 4 Skin: warm, dry, no rash Results & Data Results & Data ([facility]) Vital Signs (Past 12 Hours) Vital Signs Temp Pulse Pulse Pulse Resp BP BP 02/13/22 21:47 116 H 30 H 02/13/22 21:43 116 H 31 H 02/13/22 21:45 02/13/22 21:38 114 H 34 H 184/102 H 02/13/22 19:57 38.3 C H 121 H 20 158/99 H Pulse Ox O2 Del Method FiO2 02/13/22 21:47 98 BiPAP 45 02/13/22 21:43 98 45 02/13/22 21:45 BiPAP 45 02/13/22 21:38 99 BiPAP 45 02/13/22 19:57 94 Room Air Supervising Physician Co-Signing Physician Notes I supervised Paulo Calderon MD on this admission. I interviewed and examined the patient independently of him. The plan is as written in his note except for any following changes/exceptions: None 86yo F w/ hx of COPD, CHF who presents with Covid pneumonia. Imaging, labs, and patient all examined by myself. CXR does seem to show fairly wide-spread opacities. With negative procal, do suspect more Covid than bacterial pneumonia, but will cover both empirically. Appears comfortable on BiPap for now. Can take breaks as needed/able. CRP elevated to 2.45. Discussed with pharmacy other advanced therapies (eg baricitinib) if not weaned down to lower O2 need by AM. Nothing recommended at this point. Will monitor. Resident Activity Tracking Resident Involvement: Resident Care Provided Care Provided: Adult [facility] (1) CKD (chronic kidney disease), stage III Chronic kidney disease stage 3 subtype: unspecified whether 3a or 3b Qualified Code(s): N18.30 - Chronic kidney disease, stage 3 unspecified (2) CHF (congestive heart failure) Heart failure chronicity: acute on chronic Heart failure type: combined systolic and diastolic Qualified Code(s): I50.43 - Acute on chronic combined systolic (congestive) and diastolic (congestive) heart failure (3) Atherosclerotic heart disease of [place] coronary artery without angina pectoris [place] vs. transplanted heart: [place] heart Qualified Code(s): I25.10 - Atherosclerotic heart disease of [place] coronary artery without angina pectoris (4) Chronic obstructive pulmonary disease COPD type: unspecified COPD Qualified Code(s): J44.9 - Chronic obstructive pulmonary disease, unspecified (5) GERD (gastroesophageal reflux disease) Esophagitis presence: esophagitis presence not specified Qualified Code(s): K21.9 - Gastro-esophageal reflux disease without esophagitis (6) HTN (hypertension) Hypertension type: essential hypertension Qualified Code(s): I10 - Essential (primary) hypertension
[2022-02-13 22:32] LABS: Appearance Urine Clear (Clear); Bacteria Urine Automated Negative (Negative); Bilirubin Urine Negative (Negative); Blood Urine 1+ (Negative); Cast Urine Automated 0 /lpf (0-5); Color Urine Yellow; Glucose Urine UA Negative (Negative); Ketones Urine Trace (Negative); Leukocyte Esterase Urine Negative (Negative); Nitrite Urine Negative (Negative); Protein Urine Trace (Negative); Specific Gravity Urine 1.015 (1.000-1.030); Urobilinogen Urine Negative (Negative); pH Urine 6.5 (4.5-7.5)
--- NOTE | 2022-02-14 00:20 | Billing Data ---
Date of Service February 13, 2022 Coding Level of Care Code 64517 Initial Inpt Care Lvl 3
[2022-02-14] MEDS ORDERED: ACETAMINOPHEN 500 MG TAB PO PRN (00:49)
[2022-02-14] MEDS ORDERED: ALBUT/IPRATROP 3MG/0.5MG NEB 3 ML VIAL NEB PRN (00:49)
[2022-02-14] MEDS ORDERED: NORMOSOL-R 1,000 ML IV SCH (00:49)
[2022-02-14] MEDS ORDERED: REMDESIVIR 200 MG in SODIUM CHLORIDE 0.9% 210 ML IV ONE (01:30)
[2022-02-14] MEDS: APIXABAN 5 MG TABLET PO SCH ×3 (01:43→19:44)
[2022-02-14] MEDS: ALBUT/IPRATROP 3MG/0.5MG NEB 3 ML VIAL INH SCH ×4 (02:36→19:20)
[2022-02-14] MEDS ORDERED: AZITHROMYCIN 500 MG in DEXTROSE 5% 250 ML IV SCH (04:00)
[2022-02-14] MEDS ORDERED: OPTIRAY 320 500ml IV ONE (04:36)
[2022-02-14] MEDS ORDERED: cefTRIAXone SODIUM 2,000 MG in DEXTROSE 5% 50 ML IV SCH (05:00)
--- NOTE | 2022-02-14 06:32 | CT Scan Report ---
CT ANGIOGRAPHY OF THE CHEST, PULMONARY EMBOLUS PROTOCOL CLINICAL HISTORY: Covid. Shortness of breath. Evaluate for pulmonary embolus. COMPARISON STUDY: Chest CT February 14, 2022 at 12:[address] June 15, 2017. MRI of the chest February 01, 2018. TECHNIQUE: Following IV administration of 115 mL of Optiray, helical axial images of the chest were o btained utilizing the pulmonary embolus protocol. Maximal intensity projections and sagittal and cor onal reformats were viewed on an independent 3D workstation. IV contrast was administered without co mplication. Automated exposure control was utilized for the study. A dose lowering technique was ut ilized adhering to the principles of ALARA. CT DOSE: 506.64 mGy.cm FINDINGS: No pulmonary emboli are identified. There are median sternotomy wires and postoperative fi ndings from bypass grafting. Moderate cardiomegaly is noted with extensive coronary artery calcificat ion. There is no pericardial effusion. No enlarged thoracic lymph nodes are present. There is no pneu mothorax. Small bilateral pleural effusions have mildly increased in size since prior chest CT. Inter lobular septal thickening is noted. This suggests pulmonary edema. Groundglass opacities within the l ungs mildly progressed. Subpleural right upper lobe opacity favors postradiation change. A few pulmon danielle nodules are noted. The largest is a 6 mm right middle lobe nodule on image 79 of 223. This nodule has slightly increased in size since CT of June 15, 2017 and is probably benign. No acute fracture within the visualized bony thorax is present. Visualized portions of the upper abdomen is unremarkabl e. There are postoperative findings within the right breast and left upper chest wall. Subcarinal lym ph nodes are likely benign. IMPRESSION: 1. No pulmonary emboli identified. 2. Cardiomegaly. Increase in small bilateral pleural effusions with mild interstitial pulmonary edema . Groundglass opacities likely reflect alveolar edema although a superimposed infectious process could appear similar. 3. A few pulmonary nodules measuring up to 6 mm. These are likely benign. A follow-up chest CT could be obtained in 6 months to ensure stability. ACT 112: Negative or not required by law. Electronically signed by: Guzman Plata M.D. 02/14/2022 6:31 AM
--- NOTE | 2022-02-14 07:48 | CT Scan Report ---
CT SCAN OF THE CHEST WITHOUT IV CONTRAST CLINICAL HISTORY: Pneumonia. Covid. COMPARISON STUDY: Chest x-ray dated 02/13/2022. Chest CT dated 06/15/2017. TECHNIQUE: CT scan of the thorax was performed from the thoracic inlet to the upper abdomen. Images are reviewed in the axial, sagittal, and coronal planes. IV contrast was not administered for this ex amination as per the referring clinician. A dose lowering technique was utilized adhering to the [place] of [place]. The examination is degraded by motion artifact, as well as by streak artifact from the right arm which could not be elevated above the chest. CT DOSE: 496.38 mGy.cm FINDINGS: Thyroid: Imaged portions of the thyroid gland are normal in size and attenuation. Thoracic aorta: There is atherosclerotic calcification of the thoracic aorta, which is normal in dia madonna and demonstrates standard 3-vessel arch anatomy. Heart: The patient is status post midline sternotomy. The heart is mildly enlarged and without perica rdial effusion. The coronary arteries and mitral annulus are densely calcified. Lungs and pleural spaces: Evaluation of the lung parenchyma is degraded by motion artifact. There are small pleural effusions. Asymmetric dependent consolidation is seen on the left. Intralobular septal thickening is seen throughout both lungs. Subpleural scarring in the anterior right upper lobe may b e treatment-related. Additional foci of parenchymal scarring are seen throughout both lungs. The trac hea and central airways are clear. There is a 5 mm left lower lobe pulmonary nodule seen on image #16 7. This was not seen previously. A 5 mm right middle lobe nodule as seen on image #156. This is prese nt dating back to 2018 and is of doubtful significance. There are tiny calcified granulomas. Mediastinum: There is no mediastinal lymphadenopathy. Barb: Not well assessed without IV contrast. Axillae: There is no axillary lymphadenopathy. Upper abdomen: Cholecystectomy clips are noted. There is a small hiatal hernia. Skeletal structures: The skeletal structures are heterogeneously osteopenic. No lytic or blastic bony lesions are seen. Degenerative change and kyphoscoliosis is noted in the thoracic spine. Arthritic c hange is seen in the shoulders. IMPRESSION: 1. Mild cardiomegaly with evidence of congestive failure. 2. Small pleural effusions. 3. There is asymmetric dependent consolidation at the left lung base. This could represent atelectasi s versus a mild pneumonitis and clinical correlation will be required. 4. There is a 5 mm left lower lobe pulmonary nodule. This was not seen in 2018 and may be inflammator y. A follow-up chest CT in 6 months time is recommended for reassessment. 5. Additional findings as above. ACT 112: Negative or not required by law. Electronically signed by: Kodi Ro M.D. 02/14/2022 7:46 AM
--- NOTE | 2022-02-14 07:49 | XRay Report ---
SINGLE VIEW CHEST CLINICAL HISTORY: Sepsis. FINDINGS: An AP, portable, upright chest radiograph is compared to study dated 06/08/2021 and correlat ed with chest CT dated 06/15/2018. The patient is status post midline sternotomy. The heart is enlarge d noting atherosclerotic calcification of the thoracic aorta. A coronary artery stent is noted. There is pulmonary vascular congestion. Bilateral airspace opacities are noted. There are small pleural ef fusions with dependent consolidation. No pneumothorax is seen. The skeletal structures are osteopenic . The bony thorax is grossly intact. Arthritic change is seen in the shoulders. IMPRESSION: 1. Cardiomegaly with evidence of congestive failure. 2. Mild airspace opacities likely represent pulmonary edema. Correlate clinical history superimposed pneumonitis. 3. Small pleural effusions. ACT 112: Negative or not required by law. Electronically signed by: Kodi Ro M.D. 02/14/2022 7:48 AM
[2022-02-14] MEDS: FLUTICASONE/VILANTEROL 100/25MCG 14 PUFFS/INHALER INH SCH (08:20)
[2022-02-14] MEDS: METOPROLOL SUCC 50MG EXT REL TAB PO SCH ×3 (08:20→19:44)
[2022-02-14] MEDS: FAMOTIDINE 20 MG TAB PO SCH (08:20)
[2022-02-14] MEDS: guaiFENesin 600 MG TABCR PO SCH ×2 (08:20→19:43)
[2022-02-14] MEDS: ASPIRIN 81 MG ECTAB PO SCH (08:20)
[2022-02-14] MEDS: POTASSIUM CHLORIDE CRTAB 20 MEQ TABCR PO SCH ×2 (08:23→19:43)
[2022-02-14] MEDS ORDERED: dexAMETHasone 6 MG in SYRINGE 0 ML IV SCH (09:00)
[2022-02-14] MEDS ORDERED: PNEUMOCOCCAL Polysaccharide Vaccine 25mcg/0.5mL vial/Syr IM ONE (09:00)
[2022-02-14] MEDS ORDERED: POTASSIUM CHLORIDE CRTAB 20 MEQ TABCR PO SCH (09:00)
[2022-02-14] MEDS: ANASTROZOLE 1 MG TAB PO SCH (09:06)
[2022-02-14] MEDS: FUROSEMIDE 40 MG/4 ML VIAL IV SCH ×2 (09:53→19:43)
[2022-02-14 10:24] LABS: Hematocrit (blood only) 41.2 % (34.1-44.9); Hemoglobin 13.8 g/dl (12.0-16.0); Immature Granulocytes # (auto) 0.01 K/uL (0.00-0.02); Immature Granulocytes % (auto) 0.3 %; Lymphocytes # (auto) 0.42 K/uL (1.2-3.4); Lymphocytes % (auto) 10.6 %; Mean Corpuscular Hemoglobin 30.7 pg (25.0-34.0); Mean Corpuscular Hgb Conc 33.5 g/dL (32.0-36.0); Mean Corpuscular Volume 91.6 fL (80.0-100.0); Mean Platelet Volume 9.4 fL (9.4-12.3); Monocytes # (auto) 0.13 K/uL (0.24-0.82); Monocytes % (auto) 3.3 %; Neutrophils # (auto) 3.39 K/uL (1.4-6.5); Neutrophils % (auto) 85.8 %; Platelet Count 167 K/uL (130-400); RDW Coefficient of Variation 13.5 % (11.5-14.5); RDW Standard Deviation 46.1 fL (36.4-46.3); White Blood Count 3.95 K/ul (4.8-10.8)
[2022-02-14 10:39] LABS: D Dimer 390 ug/L FEU (0-500); Fibrinogen 531 mg/dl (184-400)
[2022-02-14 10:49] LABS: BUN Creatinine Ratio 15.7 (10-20); C Reactive Protein 3.61 mg/dl (0-0.5); Calcium 8.6 mg/dl (8.5-10.1); Creatinine Clr Calc Pharmacy 54.8 ml/min; Est GFR (African American) 92.2 ml/min; Est GFR (Non-African American) 79.6 ml/min; Magnesium 2.2 mg/dl (1.7-2.4); Potassium 3.9 mmol/L (3.5-5.1)
--- NOTE | 2022-02-14 12:27 | Hospitalist Progress Note ---
Date of Service February 14, 2022 Assessment & Plan (1) Acute hypoxemic respiratory failure due to COVID-19: Plan: She is mildly hypoxic I believe due to her CHF and I do not believe she has a viral pneumonia. We will administer supplemental oxygen to keep saturation greater than 90% and wean off as tolerated. Treat underlying CHF with Lasix diuresis. Serial chest x-ray. Remdesivir, dexamethasone, intravenous antibiotics have been discontinued. (2) Sepsis: Plan: Ruled out (3) Bilateral pleural effusion: Plan: Due to underlying CHF. ER small and will resolve over time with adequate diuresis. (4) Metabolic encephalopathy: Plan: Supportive care. Treat mild hypoxia and CHF. Expect complete resolution (5) CHF (congestive heart failure): Plan: It appears she has acute exacerbation of chronic systolic CHF. Most recent cardiac echo reveals ejection fraction of 45%. She has known coronary artery disease and has had coronary artery bypass grafting in the past. She probably s hould have another chest x-ray done in a day or 2. Continue home Toprol XL. Intravenous Lasix diuresis. Monitor intake and output (6) Multiple pulmonary emboli: Plan: History of multiple PEs. Per patient and daughter she was told by doctor that she needs indefinite anti-coagulation. Continue home Eliquis (7) Atherosclerotic heart disease of [place] coronary artery without angina pectoris: Plan: Continue home baby Aspirin and metoprolol. Telemetry. (8) Chronic obstructive pulmonary disease: Plan: Patient has 20 pack year smoking history, quit 20 years ago, and seldom uses PRN Albuterol. Duonebs regimen as stated above (9) HTN (hypertension): Plan: Continue home Toprol XL . Add low-dose lisinopril due to history of systolic CHF (10) Hyperlipidemia LDL goal <100: Plan: Continue home Rosuvastatin. (11) CKD (chronic kidney disease), stage III: Plan: Chronic. Monitor intake and output. Serial lab studies (12) GERD (gastroesophageal reflux disease): Plan: Continue home Pepcid (13) Gastroparesis: Plan: Continue home Reglan . Currently asymptomatic Plan DVT Prophylaxis: home Eliquis Code Status: full Disposition: Anticipate discharge back to home within the next day or 2 when weaned off oxygen Admission and Anticipated Discharge Date Admission Date: February 13, 2022 Subjective Alert and oriented. No distress. She actually came to the ED because of mild intermittent confusion consistent with metabolic encephalopathy. She denies any viral symptoms. I highly doubt she has bilateral COVID viral pneumonia because clinically she looks too well. I believe she has acute on chronic systolic congestive heart failure causing her mild hypoxia and mild metabolic encephalopathy which should resolve. She does not need remdesivir , intravenous antibiotics ,or intravenous steroids in my opinion. She needs intravenous Lasix diuresis. Continuous fluids are discontinued. Will increase potassium dosage to prevent hypokalemia with diuresis and monitor lab work. I spoke with her daughter, Irma May, by phone and updated her. She probably should have another chest x-ray in a day or 2 and weaned off the oxygen as tolerated. Review of Systems Review of Systems: Constitutional-no fever or chills ENT-no blurred vision, no double vision, no epistaxis, no sore throat Respiratory-no cough, no wheezing, no shortness of breath Cardiac-no palpitations, no chest pain, no syncope GI-no nausea, vomiting, diarrhea, melena, hematochezia -no urinary retention, no urinary incontinence, no dysuria, no hematuria Musculoskeletal-no joint pain, no muscle tenderness Skin-no bruising, no rashes, no pruritus Neuro-no isolated weakness, no paresthesia, no weakness. She has noticed some intermittent confusion over the past day or 2 Psych-no depression, no anxiety Physical Exam Physical Exam: General-alert and oriented x3, no fevers, no chills HEENT-head atraumatic and normocephalic, pupils equal and reactive to light, extraocular muscles intact Neck-no lymphadenopathy or thyromegaly, trachea midline Chest-faint bibasilar inspiratory rales. No wheezing. No rhonchi Cardiac-regular rate and rhythm, normal S1 and S2, no murmurs Abdomen-normal bowel sounds, nontender, no hepatosplenomegaly Extremities-no cyanosis, no clubbing. Mild bilateral lower extremity edema below the knees Neuro-cranial nerves II through XII intact, motor and sensory function within n ormal limits, strength symmetrical , no focal deficits Psych-normal affect, normal mood Results & Data Results & Data ([facility]) Vital Signs (Past 12 Hours) Vital Signs Temp Pulse Pulse Pulse Resp BP BP 02/14/22 11:55 36.6 C 83 20 110/72 02/14/22 07:30 79 02/14/22 07:30 02/14/22 07:22 36.5 C 80 16 117/74 02/14/22 07:14 83 19 02/14/22 04:18 36.5 C 84 14 141/74 H 02/14/22 04:25 82 20 02/14/22 02:37 79 19 02/14/22 02:36 79 19 02/14/22 01:31 02/14/22 01:00 36.5 C 90 14 131/79 02/14/22 00:39 27 H Pulse Ox O2 Del Method O2 Flow Rate FiO2 02/14/22 11:55 97 Nasal Cannula 2 02/14/22 07:30 02/14/22 07:30 Nasal Cannula 2 02/14/22 07:22 97 Nasal Cannula 2 02/14/22 07:14 100 BiPAP 40 02/14/22 04:18 100 Oxymask 4.0 02/14/22 04:25 97 4 02/14/22 02:37 99 40 02/14/22 02:36 99 BiPAP 40 02/14/22 01:31 BiPAP 40 02/14/22 01:00 97 BiPAP 45 02/14/22 00:39 96 40 Laboratory Results 02/14/22 09:53 02/14/22 09:53 PG Care Time/CCT Total # of Minutes Spent Total Time Spent with Patient: Total time spent is greater than 50% in coordination of care (as documented) at patient's floor/unit and/or counseling patient: Coding Level of Care Code 99132 Subseq Hosp Care Lvl 3 Diagnoses Acute hypoxemic respiratory failure due to COVID-19 U07.1; J96.01 Sepsis A41.9 Bilateral pleural effusion J90 Metabolic encephalopathy G93.41 CHF (congestive heart failure) I50.43 Heart failure type: combined systolic and diastolic Heart failure chronicity: acute on chronic Multiple pulmonary emboli I26.99 Atherosclerotic heart disease of [place] coronary artery without angina pectoris I25.10 [place] vs. transplanted heart: [place] heart Chronic obstructive pulmonary disease J44.9 COPD type: unspecified COPD HTN (hypertension) I10 Hypertension type: essential hypertension Hyperlipidemia LDL goal <100 E78.5 CKD (chronic kidney disease), stage III N18.30 Chronic kidney disease stage 3 subtype: unspecified whether 3a or 3b GERD (gastroesophageal reflux disease) K21.9 Esophagitis presence: esophagitis presence not specified Gastroparesis K31.84 (1) CHF (congestive heart failure) Heart failure type: combined systolic and diastolic Heart failure chronicity: acute on chronic Qualified Code(s): I50.43 - Acute on chronic combined systolic (congestive) and diastolic (congestive) heart failure (2) Atherosclerotic heart disease of [place] coronary artery without angina pectoris [place] vs. transplanted heart: [place] heart Qualified Code(s): I25.10 - Atherosclerotic heart disease of [place] coronary artery without angina pectoris (3) Chronic obstructive pulmonary disease COPD type: unspecified COPD Qualified Code(s): J44.9 - Chronic obstructive pulmonary disease, unspecified (4) HTN (hypertension) Hypertension type: essential hypertension Qualified Code(s): I10 - Essential (primary) hypertension (5) CKD (chronic kidney disease), stage III Chronic kidney disease stage 3 subtype: unspecified whether 3a or 3b Qualified Code(s): N18.30 - Chronic kidney disease, stage 3 unspecified (6) GERD (gastroesophageal reflux disease) Esophagitis presence: esophagitis presence not specified Qualified Code(s): K21.9 - Gastro-esophageal reflux disease without esophagitis
[2022-02-14] MEDS: lisinopril 5 MG TAB PO SCH (13:04)
--- NOTE | 2022-02-14 16:53 | XCELERA ---
[id number]___[id number]
[2022-02-14] MEDS: ROSUVASTATIN CALCIUM 20 MG TAB PO SCH (19:44)
[2022-02-14] MEDS: METOCLOPRAMIDE HCL 5 MG TABLET PO SCH (19:44)
[2022-02-15] MEDS: ALBUT/IPRATROP 3MG/0.5MG NEB 3 ML VIAL INH SCH ×2 (00:09→07:30)
--- NOTE | 2022-02-15 05:11 | Electrocardiogram Report ---
Test Reason : Blood Pressure : / mmHG Vent. Rate : 117 BPM Atrial Rate : 117 BPM P-R Int : 182 ms QRS Dur : 092 ms QT Int : 314 ms P-R-T Axes : 067 008 140 degrees QTc Int : 438 ms Sinus tachycardia Nonspecific ST and T wave abnormality Abnormal ECG When compared with ECG of 16-MAY-2021 19:54, Vent. rate has increased BY 44 BPM Criteria for Anterior infarct are no longer Present Confirmed by Boni Kelly ([id number]) on 02/15/2022 5:10:50 AM Referred By: REFERRED SELF Confirmed By:Boni Kelly
[2022-02-15 07:21] LABS: BUN Creatinine Ratio 26.4 (10-20); Calcium 8.6 mg/dl (8.5-10.1); Creatinine Clr Calc Pharmacy 33.3 ml/min; Est GFR (African American) 53.4 ml/min; Est GFR (Non-African American) 46.1 ml/min; Potassium 4.5 mmol/L (3.5-5.1)
[2022-02-15] MEDS ORDERED: REMDESIVIR 100 MG in SODIUM CHLORIDE 0.9% 230 ML IV SCH (08:00)
[2022-02-15] MEDS: guaiFENesin 600 MG TABCR PO SCH ×2 (08:25→20:00)
[2022-02-15] MEDS: FAMOTIDINE 20 MG TAB PO SCH (08:25)
[2022-02-15] MEDS: APIXABAN 5 MG TABLET PO SCH ×2 (08:25→20:01)
[2022-02-15] MEDS: FUROSEMIDE 40 MG/4 ML VIAL IV SCH ×2 (08:25→20:00)
[2022-02-15] MEDS: ASPIRIN 81 MG ECTAB PO SCH (08:26)
[2022-02-15] MEDS: FLUTICASONE/VILANTEROL 100/25MCG 14 PUFFS/INHALER INH SCH (08:26)
[2022-02-15] MEDS: lisinopril 5 MG TAB PO SCH (08:26)
[2022-02-15] MEDS: POTASSIUM CHLORIDE CRTAB 20 MEQ TABCR PO SCH ×2 (08:26→20:01)
[2022-02-15] MEDS: METOPROLOL SUCC 50MG EXT REL TAB PO SCH ×2 (08:27→20:01)
[2022-02-15] MEDS ORDERED: ALBUT/IPRATROP 3MG/0.5MG NEB 3 ML VIAL INH PRN (09:34)
[2022-02-15] MEDS: ANASTROZOLE 1 MG TAB PO SCH (09:41)
[2022-02-15] MEDS ORDERED: lisinopril 2.5 MG TAB PO SCH (12:47)
--- NOTE | 2022-02-15 14:33 | Hospitalist Progress Note ---
Date of Service February 15, 2022 Assessment & Plan (1) Acute hypoxemic respiratory failure: Plan: Now resolved was most weir seccondary to CHF exacerbation, given chest x ray evidence of pulmonary edema has resolved following lasix Patient now saturating well on room air (2) Sepsis: Plan: Ruled out (3) Acute on chronic systolic CHF (congestive heart failure): Plan: It appears she has acute exacerbation of chronic systolic CHF. Most recent cardiac echo reveals ejection fraction of 45%. She has known coronary artery disease and has had coronary artery bypass grafting in the past. She probably should have another chest x-ray done in a day or 2. Continue home Toprol XL. Intravenous Lasix diuresis. Monitor intake and output (4) Bilateral pleural effusion: Plan: Due to underlying CHF. ER small and will resolve over time with adequate diuresis. (5) COVID-19 virus infection: Plan: Tested positive for covid 19 initially started on Remdesiivir, steroids, but discontinued on account of low suspicion for COVID PNA (6) Metabolic encephalopathy: Plan: Now resolved Most weir secondary to hypoxemia from CHF Supportive care. Treat mild hypoxia and CHF. Expect complete resolution (7) Multiple pulmonary emboli: Plan: History of multiple PEs. Per patient and daughter she was told by doctor that she needs indefinite anti-coagulation. Continue home Eliquis (8) Atherosclerotic heart disease of [place] coronary artery without angina pectoris: Plan: Continue home baby Aspirin and metoprolol. Telemetry. (9) Chronic obstructive pulmonary disease: Plan: Patient has 20 pack year smoking history, quit 20 years ago, and seldom uses PRN Albuterol. Duonebs regimen as stated above (10) HTN (hypertension): Plan: Continue home Toprol XL . Add low-dose lisinopril due to history of systolic CHF (11) CHF (congestive heart failure): (12) Hyperlipidemia LDL goal <100: Plan: Continue home Rosuvastatin. (13) CKD (chronic kidney disease), stage III: Plan: Chronic. Monitor intake and output. Serial lab studies (14) GERD (gastroesophageal reflux disease): Plan: Continue home Pepcid (15) Gastroparesis: Plan: Continue home Reglan . Currently asymptomatic Plan DVT Prophylaxis: home Eliquis Code Status: full Disposition: Anticipate discharge back to home within the next day Admission and Anticipated Discharge Date Admission Date: February 13, 2022 Subjective patient seen and examined, feels at baseline, denies SOB Review of Systems Review of Systems: All systems reviewed are negative, apart from the ones contained in the history. Physical Exam Physical Exam: The patient is awake, alert and oriented 3, well developed and well nourished, normocephalic and atraumatic, lying in bed and in no acute distress. HEENT--PERRL, EOMI, mucous membranes and oropharynx mildly dry Neck--supple. No JVD. No bruits. Thyroid normal, trachea midline, no adenopathy. Heart--normal S1 and S2. No murmurs, rubs or gallops. Lungs--clear bilaterally, no respiratory distress, no accessory muscle use. Abdomen--normal bowel sounds and soft. Mild epigastric and left sided abdominal pain Extremities--no cyanosis or clubbing. No edema. Dermatologic--normal skin turgor, normal color, no abnormal lymph nodes, no ra sh. Neurologic--cranial nerves II through XII grossly intact. Rheumatologic--normal range of motion. Psychiatric--normal affect. Results & Data Results & Data ([facility]) Vital Signs (Past 12 Hours) Vital Signs Temp Pulse Pulse Resp BP BP Pulse Ox 02/15/22 11:37 97.9 F 73 14 93/59 L 94 02/15/22 07:30 71 02/15/22 07:30 02/15/22 07:37 97.7 F 71 14 113/69 99 02/15/22 07:30 71 17 98 02/15/22 04:06 97.5 F L 80 18 121/72 96 O2 Del Method O2 Flow Rate 02/15/22 11:37 02/15/22 07:30 02/15/22 07:30 Room Air 02/15/22 07:37 Room Air 02/15/22 07:30 Nasal Cannula 2 02/15/22 04:06 Nasal Cannula 2.0 PG Care Time/CCT Total # of Minutes Spent Total Time Spent with Patient: Total time spent is greater than 50% in coordination of care (as documented) at patient's floor/unit and/or counseling patient: Coding Level of Care Code 44412 Subseq Hosp Care Lvl 2 Diagnoses Acute hypoxemic respiratory failure J96.01 Sepsis A41.9; R65.20; J96.01 Acute respiratory failure type: with hypoxia Sepsis acute organ dysfunction status: with acute organ dysfunction Sepsis type: sepsis due to unspecified organism Severe sepsis acute organ dysfunction type: acute respiratory failure Severe sepsis shock status: without septic shock Acute on chronic systolic CHF (congestive heart failure) I50.23 Bilateral pleural effusion J90 COVID-19 virus infection U07.1 Metabolic encephalopathy G93.41 Multiple pulmonary emboli I26.99 Atherosclerotic heart disease of [place] coronary artery without angina pectoris I25.10 [place] vs. transplanted heart: [place] heart Chronic obstructive pulmonary disease J44.9 COPD type: unspecified COPD HTN (hypertension) I10 Hypertension type: essential hypertension CHF (congestive heart failure) I50.43 Heart failure type: combined systolic and diastolic Heart failure chronicity: acute on chronic Hyperlipidemia LDL goal <100 E78.5 CKD (chronic kidney disease), stage III N18.30 Chronic kidney disease stage 3 subtype: unspecified whether 3a or 3b GERD (gastroesophageal reflux disease) K21.9 Esophagitis presence: esophagitis presence not specified Gastroparesis K31.84 Time Spent (min) 35 (1) Sepsis Acute respiratory failure type: with hypoxia Sepsis acute organ dysfunction status: with acute organ dysfunction Sepsis type: sepsis due to unspecified organism Severe sepsis acute organ dysfunction type: acute respiratory failure Severe sepsis shock status: without septic shock Qualified Code(s): A41.9 - Sepsis, unspecified organism; R65.20 - Severe sepsis without septic shock; J96.01 - Acute respiratory failure with hypoxia (2) CHF (congestive heart failure) Heart failure type: combined systolic and diastolic Heart failure chronicity: acute on chronic Qualified Code(s): I50.43 - Acute on chronic combined systolic (congestive) and diastolic (congestive) heart failure (3) Atherosclerotic heart disease of [place] coronary artery without angina pectoris [place] vs. transplanted heart: [place] heart Qualified Code(s): I25.10 - Atherosclerotic heart disease of [place] coronary artery without angina pectoris (4) Chronic obstructive pulmonary disease COPD type: unspecified COPD Qualified Code(s): J44.9 - Chronic obstructive pulmonary disease, unspecified (5) HTN (hypertension) Hypertension type: essential hypertension Qualified Code(s): I10 - Essential (primary) hypertension (6) CKD (chronic kidney disease), stage III Chronic kidney disease stage 3 subtype: unspecified whether 3a or 3b Qualified Code(s): N18.30 - Chronic kidney disease, stage 3 unspecified (7) GERD (gastroesophageal reflux disease) Esophagitis presence: esophagitis presence not specified Qualified Code(s): K21.9 - Gastro-esophageal reflux disease without esophagitis
[2022-02-15] MEDS: METOCLOPRAMIDE HCL 5 MG TABLET PO SCH (20:00)
[2022-02-15] MEDS: ROSUVASTATIN CALCIUM 20 MG TAB PO SCH (20:02)
[2022-02-16 07:09] LABS: BUN Creatinine Ratio 34.6 (10-20); Creatinine Clr Calc Pharmacy 34.2 ml/min; Est GFR (African American) 55.2 ml/min; Est GFR (Non-African American) 47.6 ml/min; Potassium 3.7 mmol/L (3.5-5.1)
[2022-02-16] MEDS: FLUTICASONE/VILANTEROL 100/25MCG 14 PUFFS/INHALER INH SCH (07:54)
[2022-02-16] MEDS: ASPIRIN 81 MG ECTAB PO SCH (07:54)
[2022-02-16] MEDS: APIXABAN 5 MG TABLET PO SCH (07:54)
[2022-02-16] MEDS: POTASSIUM CHLORIDE CRTAB 20 MEQ TABCR PO SCH (07:54)
[2022-02-16] MEDS: FAMOTIDINE 20 MG TAB PO SCH (07:54)
[2022-02-16] MEDS: guaiFENesin 600 MG TABCR PO SCH (07:55)
[2022-02-16] MEDS: METOPROLOL SUCC 50MG EXT REL TAB PO SCH (07:55)
[2022-02-16] MEDS: FUROSEMIDE 40 MG/4 ML VIAL IV SCH (07:55)
[2022-02-16] MEDS: ANASTROZOLE 1 MG TAB PO SCH (08:03)
[2022-02-16 12:02] VITALS: TEMP 98.6; O2SAT 97
--- NOTE | 2022-02-16 14:15 | Discharge Summary ---
Date of Service February 16, 2022 Admission HPI Per Admitting Provider Phill Valdez is an 86yo female with PMHx significant for CAD, ischemic cardiomyopathy, HFmrEF (EF 45-50% per TTE in 04/2021), h/o breast cancer (on Anastrozole), HTN, HLD, CKD3, gastroparesis, and history of PE (on eliquis). She presented to [facility] on 02/13 for acute onset of confusion earlier in the day, as well as generalized pain, dry cough and dehydration. Patient also reports chills throughout the day but denies fevers. Denies any symptoms before today - was feeling well overall. Denies recent respiratory symptoms, fever/chills, chest pain, SOB, N/V, abdominal pain, dysuria or rash. Denies orthopnea or LE edema. Patient has a 20 pack year smoking history and quit 20 years ago. Denies alcohol/drug use. Patient lives alone and is proficient in ADLs/iADLs without walking assist and does not fall. In the ED the patient was septic on presentation with T38.3C, HR 121, BP 184/102, and required initiation of BiPAP. Labs significant for lymphopenia (0.66), no leukocytosis/leukopenia. Lactate 0.7 and procalcitonin <.05. Also with slightly elevated hsTroponin of 16.4. CBC/BMP otherwise unremarkable. COVID-19 POSITIVE. CXR with patchy opacities throughout right lung and in left base, as well as mild bilateral pleural effusions. Blood cx collected and pending. Patient received Decadron 6mg IV x1, Albuterol nebs x1, and Tylenol 1g IV x1. Was also given NSS 1L bolus and started on Cefepime. Principal Diagnosis Acute CHf exacerbation Discharge Exam The patient is awake, alert and oriented 3, well developed and well nourished, normocephalic and atraumatic, lying in bed and in no acute distress. HEENT--PERRL, EOMI, mucous membranes and oropharynx mildly dry Neck--supple. No JVD. No bruits. Thyroid normal, trachea midline, no adenopathy. Heart--normal S1 and S2. No murmurs, rubs or gallops. Lungs--clear bilaterally, no respiratory distress, no accessory muscle use. Abdomen--normal bowel sounds and soft. Mild epigastric and left sided abdominal pain Extremities--no cyanosis or clubbing. No edema. Dermatologic--normal skin turgor, normal color, no abnormal lymph nodes, no rash. Neurologic--cranial nerves II through XII grossly intact. Rheumatologic--normal range of motion. Psychiatric--normal affect. Discharge Data Allergies Allergy/AdvReac Type Severity Reaction Status Date / Time nitroglycerin AdvReac Intermediate BP Verified 02/13/22 21:25 Decreases, HR Increases tramadol AdvReac Intermediate faint Verified 02/13/22 21:25 feeling, mind foggy not able to think Consultations 02/13/22 22:03 ED Decision to Admit Stat Ordered Studies 02/13/22 23:08 CT chest diagnostic wo con Urgent 02/14/22 02:38 CT angio chest PE protocol Urgent Hospital Course (1) Acute hypoxemic respiratory failure: Now resolved was most likley seccondary to CHF exacerbation, given chest x ray evidence of pulmonary edema has resolved following lasix Patient now saturating well on room air (2) Sepsis: Ruled out (3) Acute on chronic systolic CHF (congestive heart failure): It appears she has acute exacerbation of chronic systolic CHF. Most recent cardiac echo reveals ejection fraction of 45%. She has known coronary artery disease and has had coronary artery bypass grafting in the past. She probably should have another chest x-ray done in a day or 2. Continue home Toprol XL. Intravenous Lasix diuresis. Monitor intake and output (4) Bilateral pleural effusion: Due to underlying CHF. ER small and will resolve over time with adequate diuresis. (5) COVID-19 virus infection: Tested positive for covid 19 initially started on Remdesiivir, steroids, but discontinued on account of low suspicion for COVID PNA (6) Metabolic encephalopathy: Now resolved Most likley secondary to hypoxemia from CHF Supportive care. Treat mild hypoxia and CHF. Expect complete resolution (7) Multiple pulmonary emboli: History of multiple PEs. Per patient and daughter she was told by doctor that she needs indefinite anti-coagulation. Continue home Eliquis (8) Atherosclerotic heart disease of [place] coronary artery without angina pectoris: Continue home baby Aspirin and metoprolol. Telemetry. (9) Chronic obstructive pulmonary disease: Patient has 20 pack year smoking history, quit 20 years ago, and seldom uses PRN Albuterol. Duonebs regimen as stated above (10) HTN (hypertension): Continue home Toprol XL (reduce to BID from TID) . Add low-dose lisinopril due to history of systolic CHF (11) CHF (congestive heart failure): Reduce home metoprolol to 50mg BId from TID in view of low BP (12) Hyperlipidemia LDL goal <100: Continue home Rosuvastatin. (13) CKD (chronic kidney disease), stage III: Chronic. Monitor intake and output. Serial lab studies (14) GERD (gastroesophageal reflux disease): Continue home Pepcid (15) Gastroparesis: Continue home Reglan . Currently asymptomatic Plan DVT Prophylaxis: home Eliquis Code Status: full Disposition: Anticipate discharge back to home within the next day Total Time Total Time Spent Total Time Spent (In Minutes): 35 Discharge Plan Discharge Items Patient Disposition: Home - Self-Care Reason For Visit: COVID-19 PNA Discharge Diagnosis: Acute CHF exacerbation, COVID 19 infection Activity: Resume your previous activity Non-emergency contact: Primary Care Provider Call non-emergency contact if: you have any medication questions Follow-up/Referrals: Lucian Noe MD [Primary Care Provider] - Diet: Regular Addtl Attending Provider Instructions: please make appointment to follow up with your PCP Pending Studies at Discharge: No Stand-Alone Forms: [employer], Smoking Cessation Medications and DC Order Prescriptions: New metoprolol succinate 50 mg Tablet Extended Release 24 Hr 50 mg PO BID 30 Days Qty: 60 0RF lisinopril 2.5 mg Tablet 2.5 mg PO QAM 30 Days Qty: 30 0RF Continued anastrozole [Arimidex] 1 mg tablet 1 mg PO QAM aspirin 81 mg tablet,delayed release (DR/EC) 81 mg PO QAM rosuvastatin [Crestor] 40 mg tablet 40 mg PO HS calcium carbonate-vitamin D3 600 mg-25 mcg (1,000 unit) capsule 1 cap PO QAM metoclopramide HCl [Reglan] 10 mg tablet 5 mg PO QPM furosemide 20 mg tablet 20 mg PO QAM apixaban 5 mg tablet 5 mg PO BID Qty: 60 6RF potassium chloride 20 mEq tablet,ER particles/crystals 20 meq PO QAM Qty: 30 3RF albuterol sulfate [ProAir HFA] 90 mcg/actuation HFA aerosol inhaler 2 puff INH Q4H PRN (Reason: shortness of breath) Qty: 8.5 5RF Advair HFA 230-21 mcg/actuation HFA aerosol inhaler 1 puff inhalation BID Qty: 12 2RF acetaminophen 650 mg tablet extended release 650 mg PO Q12H famotidine 20 mg tablet 20 mg PO DAILY Discontinued metoprolol succinate [Toprol XL] 50 mg tablet extended release 24 hr 50 mg PO TID Qty: 270 3RF Discharge Orders: Discharge Order (Routine); Ordered 02/16/22 Ordered By: Forest Richardson Admission Data Admit Date/Time: 02/13/22 23:08 Attending Provider: oFrest Richardson Admit Provider: Paulo Calderon Primary Care Provider: Lucian Noe Other Providers: Kang Caballero Coding Level of Care Code D/C DAY MANAGEMENT >30 MINS Diagnoses Acute hypoxemic respiratory failure J96.01 Sepsis A41.9; R65.20; J96.01 Acute respiratory failure type: with hypoxia Sepsis acute organ dysfunction status: with acute organ dysfunction Sepsis type: sepsis due to unspecified organism Severe sepsis acute organ dysfunction type: acute respiratory failure Severe sepsis shock status: without septic shock Acute on chronic systolic CHF (congestive heart failure) I50.23 Bilateral pleural effusion J90 COVID-19 virus infection U07.1 Metabolic encephalopathy G93.41 Multiple pulmonary emboli I26.99 Atherosclerotic heart disease of [place] coronary artery without angina pectoris I25.10 [place] vs. transplanted heart: [place] heart Chronic obstructive pulmonary disease J44.9 COPD type: unspecified COPD HTN (hypertension) I10 Hypertension type: essential hypertension CHF (congestive heart failure) I50.43 Heart failure type: combined systolic and diastolic Heart failure chronicity: acute on chronic Hyperlipidemia LDL goal <100 E78.5 CKD (chronic kidney disease), stage III N18.30 Chronic kidney disease stage 3 subtype: unspecified whether 3a or 3b GERD (gastroesophageal reflux disease) K21.9 Esophagitis presence: esophagitis presence not specified Gastroparesis K31.84 Time Spent (min) 35
[2022-02-16 15:28] VITALS: BP 108/66; PULSE 79
== END 2022-02-16 16:11 | disposition home or self-care (01) | DRG 291 ==
LOC: ED 19:55 → SUATTDRO 23:08 → 2S 23:08

== ENCOUNTER 2022-08-08 00:37 | Observation (INO) ==
[2022-08-08] MEDS ORDERED: ACETAMINOPHEN 500 MG TAB PO STA (01:38)
--- NOTE | 2022-08-08 02:06 | Emergency Department Note ---
History of Present Illness General Chief complaint: Knee Injury/Pain Stated complaint: knee pain Time Seen by Provider: 08/08/22 01:37 History of Present Illness Maximum Pain Intensity: 8 This 86-year-old presents to the ER complaining of severe right knee pain unable to bear weight. No direct injury. She lives alone by herself. She is unable to care for herself. No other concerns per patient or family. Home Medications Medication Instructions Recorded Confirmed Type aspirin 81 mg tablet,delayed 81 mg PO QAM 12/13/17 08/08/22 History release rosuvastatin 40 mg tablet (Crestor) 40 mg PO HS 12/13/17 08/08/22 History furosemide 20 mg tablet 20 mg PO QAM 12/11/19 08/08/22 History metoclopramide HCl 10 mg tablet 5 mg PO QPM 12/11/19 08/08/22 History (Reglan) acetaminophen 650 mg 650 mg PO Q12H 08/07/20 08/08/22 History tablet,extended release calcium carbonate 600 mg-vitamin 1 cap PO QAM 11/09/21 08/08/22 History D3 25 mcg (1,000 unit) capsule anastrozole 1 mg tablet (Arimidex) 1 mg PO QAM #90 tabs 03/04/22 08/08/22 Rx potassium chloride 20 mEq 20 meq PO QAM #90 tabs 03/05/22 08/08/22 Rx tablet,extended release(part/cryst) lisinopril 2.5 mg tablet 2.5 mg PO QAM 30 days #30 tabs 03/10/22 08/08/22 Rx famotidine 20 mg tablet 20 mg PO DAILY #90 tabs 04/22/22 08/08/22 Rx apixaban 5 mg tablet 5 mg PO BID #180 tabs 04/27/22 08/08/22 Rx albuterol sulfate 90 mcg/actuation 2 puff inhalation Q4H PRN 05/07/22 08/08/22 Rx aerosol inhaler (ProAir HFA) shortness of breath #8.5 grams metoprolol succinate 50 mg 50 mg PO BID #60 tabs 05/10/22 08/08/22 Rx tablet,extended release 24 hr (Toprol XL) fluticasone propionate 230 1 puff inhalation BID #12 grams 03/02/23 05/14/23 Rx mcg-salmeterol 21 mcg/actuation HFA inhaler (Advair HFA) Allergies Allergy/AdvReac Type Severity Reaction Status Date / Time nitroglycerin AdvReac Intermediate BP Verified 08/08/22 01:58 Decreases, HR Increases tramadol AdvReac Intermediate faint Verified 08/08/22 01:58 feeling, mind foggy not able to think Past Med/Surg History Medical History Acute hypoxemic respiratory failure due to COVID-19 Anemia Asthma Breast carcinoma, lobular Right. takes Arimidex daily Carotid artery stenosis CHF (congestive heart failure) Chronic obstructive pulmonary disease CKD (chronic kidney disease), stage III COVID-19 virus infection Diabetes mellitus, type 2 no medications -- diet controlled Diverticular disease Elevated vitamin B12 level Gastroparesis GERD (gastroesophageal reflux disease) HTN (hypertension) Hyperlipidemia LDL goal <100 Long-term (current) use of anticoagulants, INR goal 2.0-3.0 Metabolic encephalopathy Multiple pulmonary emboli S/P surgical procedure (~5-10 years ago) reason for warfarin daily Myocardial Infarction [address]. [address] Viera Open wound of left breast hx Osteoarthritis Productive cough Septic shock hx r/t UTI (2017) Systolic CHF, chronic Surgical History H/O vascular surgery port-a-cath insertion History of cardiac cath with stent following CABG with one stent. History of cataract surgery bilateral History of colonoscopy History of coronary artery bypass graft x2 vessels (1994) History of removal of Port-a-Cath Hx of lumpectomy right breast with lymph node removal S/P cholecystectomy Laprascopic S/P debridement right breast wound debridement + wound vac + skin graft from a cadaver. (multiple) S/P lymph node biopsy right breast & axillary Family History Father Lung cancer Brother Prostate cancer Myocardial infarction Other No family history of adverse response to anesthesia Denies family history of Colon cancer Ovarian cancer Breast cancer Social History Smoking Status: Never smoker Tobacco Type: Cigarettes Second Hand Exposure: No; Do You Dip or Chew Tobacco: No; Hx Alcohol Use: No Hx Substance Use: No Preferred Language: Turkmen Communication Ability: Effective Visual Impairment: No Limitations Hearing Ability: Normal Record Changer Tester Required: No Beliefs That Will Affect Care: None marital status: / Current Living Situation: Alone current occupational status: retired Feels Safe at Home: Yes Dental Care, Regularly: Yes Physical Activity Frequency: Does not Exercise Seatbelt Use: always Assistive Devices: None Review of Systems A total of 10 systems reviewed and were otherwise negative Physical Exam Vital Signs Vital Signs - 24 hr 08/08/22 00:27 08/08/22 01:27 08/08/22 02:07 Temperature 36.5 C Temperature Source Oral Pulse Rate 78 84 Pulse Rate [Finger] 78 Respiratory Rate 20 24 Respiratory Effort / Characteristics Respiratory Depth Blood Pressure 171/94 H Blood Pressure [Left Arm] 167/87 H Blood Pressure Mean 119 Blood Pressure Mean [Left Arm] 113 Pulse Oximetry 96 98 Oxygen Delivery Method Room Air Room Air Sepsis Recent Fever Within 48 Hours No Sepsis New/Unexplained Change in Mental Status No Sepsis Action Taken by Nursing No Action Required 08/08/22 02:33 Temperature Temperature Source Pulse Rate Pulse Rate [Finger] 76 Respiratory Rate 20 Respiratory Effort / Characteristics Non-Labored Spontaneous Respiratory Depth Normal Blood Pressure Blood Pressure [Left Arm] Blood Pressure Mean Blood Pressure Mean [Left Arm] Pulse Oximetry 96 Oxygen Delivery Method Room Air Sepsis Recent Fever Within 48 Hours Sepsis New/Unexplained Change in Mental Status Sepsis Action Taken by Nursing VITALS: Vitals are noted on the nurse's note and reviewed by myself. Vital signs stable. GENERAL: Pleasant female who appears in pain, in no acute distress, nondiaphoretic, well-developed well-nourished. SKIN: The skin was without rashes, erythema, edema, or bruising. There is no tenting of the skin. Capillary reflex less than 2 seconds. HEAD: Normocephalic atraumatic. EARS: External auditory canals clear EYES: Pupils equal round and reactive to light and accommodation. Conjunctivae without injection, sclerae without icterus. Extraocular movements intact. NOSE: Patent, turbinates without inflammation or discharge. MOUTH: Mucous membranes moist. Pharynx without erythema or exudate. Uvula midline. Airway patent. Tongue does not deviate. NECK: Supple without nuchal rigidity. No lymphadenopathy. No thyromegaly. Cervical spine is nontender. No JVD. HEART: Regular rate and rhythm LUNGS: Clear to auscultation bilaterally without wheezes, rales or rhonchi. No retractions or accessory muscle use. ABDOMEN: Positive bowel sounds x 4. Normal tympanic percussion. Soft, nontender, without masses or organomegaly. Lerma sign negative. No guarding or rebound tenderness. No CVA tenderness MUSCULOSKELETAL: No muscle atrophy, erythema, or edema noted. Right knee tender to palpation with increased pain with range of motion. Left knee normal. Pedal pulses +2 equal and present bilaterally. NEURO: Patient was alert and oriented to person place and time. Normal sensation to light and sharp touch. No focal neurological deficits. Course Administered Medications Discontinued Medications Acetaminophen (Acetaminophen 500 Mg Tab) 1,000 mg PO NOW STA Stop: 08/08/22 01:39 Last Admin: 08/08/22 02:06 Dose: 1,000 mg Documented By: EMILIE Medical Decision Making Medical Records Attestation: I reviewed the patient's medical records. Home Medications Current Medication List: was personally reviewed by nh Laboratory Data 08/08/22 04:35 08/08/22 04:35 Lab Results 08/08/22 08/08/22 08/08/22 Range/Units 03:52 04:35 04:35 WBC 9.50 (4.8-10.8) K/ul RBC 4.50 (4.20-5.40) M/uL Hgb 13.6 (12.0-16.0) g/dl Hct 41.8 (37.0-47.0) % MCV 92.9 (80.0-100.0) fL MCH 30.2 (25.0-34.0) pg MCHC 32.5 (32.0-36.0) g/dL RDW Std Deviation 43.1 (36.4-46.3) fL RDW Coeff of Cathy 12.7 (11.5-14.5) % Plt Count 192 (130-400) K/uL MPV 9.2 L (9.4-12.4) fL Immature Gran % (Auto) 0.3 % Neut % (Auto) 69.7 % Lymph % (Auto) 12.0 % [place] % (Auto) 6.7 % Eos % (Auto) 10.5 % Baso % (Auto) 0.8 % Neut # (Auto) 6.61 H (1.40-6.50) K/uL Lymph # (Auto) 1.14 L (1.2-3.4) K/uL [place] # (Auto) 0.64 H (0.11-0.59) K/uL Eos # (Auto) 1.00 H (0-0.50) K/uL Baso # (Auto) 0.08 (0-0.2) K/uL Immature Gran # (Auto) 0.03 (0.01-0.20) K/uL Sodium 138 (136-145) mmol/L Potassium 4.3 (3.5-5.1) mmol/L Chloride 109 H (98-107) mmol/L Carbon Dioxide 20 L (21-32) mmol/L Anion Gap 9 (3-11) BUN 20 (6-23) mg/dl Creatinine 0.83 (0.6-1.2) mg/dl Est Cr Clr Drug Dosing 46.0 ml/min Est GFR ( Amer) 75.1 ml/min Est GFR (Non-Af Amer) 64.8 ml/min BUN/Creatinine Ratio 24.1 H (10-20) Glucose 113 H (70-99(Fasting)) mg/dl Calcium 8.6 (8.6-10.3) mg/dl Total Bilirubin 0.3 (0.2-1.0) mg/dl AST 18 (13-39) U/L ALT 10 (7-52) U/L Alkaline Phosphatase 119 H (34-104) U/L Total Protein 6.5 (6.0-8.3) gm/dl Albumin 3.9 (3.4-5.0) gm/dl Globulin 2.6 (2.5-4.0) gm/dl Albumin/Globulin Ratio 1.5 (0.9-2) SARS-CoV-2, RNA, NAAT NEGATIVE (NEGATIVE) Imaging Data Attestation: I personally reviewed and interpreted this imaging study as follows: MDM Narrative Prior records/ancillary studies reviewed. Triage Nursing notes reviewed. Additional history obtained from family. The patient's history was concerning for knee pain. Differential diagnosis: Etiologies such as musculoskeletal, fracture, dislocation, infection, gout, bursitis, as well as others were entertained. Physical findings: As above. No focal neurologic findings noted. ER treatment provided: Tylenol On reassessment the patient felt better. Diagnostics interpreted by me: The labs Independently Interpreted by myself revealed no worrisome leukocytosis Imaging studies: Knee x-ray with no acute fracture dislocation or effusion per my independent interpretation Consultation: A consultation was placed with hospitalist. The case was discussed and diagnostics were reviewed. They will evaluate the patient for possible admission. This appears to be consistent with intractable knee pain. Family does not feel comfortable taking the patient home. They are requesting admission as the patient cannot walk. Medicine is consulted and will evaluate the patient for possible admission. By the evaluation outlined above emergent etiologies such as fracture, infection, as well as others were deemed relatively unlikely. The pt informed about the findings as listed above. All questions were answered and pleased with the treatment. The chart was completed utilizing [employer] Speech voice recognition software. Grammatical errors, random word insertions, pronoun errors, and incomplete sentences are an occassional consequence of this system due to software mendoza itations, ambient noise, and hardware issues. Any formal questions or concerns about the content, text, or information contained within the body of this dictation should be directly addressed to the physician laundry assistant for clarification. Impression & Plan Acute pain of right knee, Intractable pain Discharge Plan Visit Data Chief Complaint: Knee Injury/Pain Stated Complaint: knee pain ED Provider: Rico Cedeño ED Midlevel Provider: Jacki Driver Discharge Problem: Acute pain of right knee, Intractable pain Patient Disposition: Being Evaluated by Hospitalist Condition: Good Discharge Instructions Interventions: ED Discharge Assessment Last Done: 08/08/22 05:00 Forms Stand Alone Forms: [facility] [employer] Prescriptions Prescriptions: No Action aspirin 81 mg tablet,delayed release (DR/EC) 81 mg PO QAM rosuvastatin [Crestor] 40 mg tablet 40 mg PO HS calcium carbonate-vitamin D3 600 mg-25 mcg (1,000 unit) capsule 1 cap PO QAM metoclopramide HCl [Reglan] 10 mg tablet 5 mg PO QPM furosemide 20 mg tablet 20 mg PO QAM anastrozole [Arimidex] 1 mg tablet 1 mg PO QAM Qty: 90 2RF potassium chloride 20 mEq tablet,ER particles/crystals 20 meq PO QAM Qty: 90 1RF lisinopril 2.5 mg tablet 2.5 mg PO QAM 30 Days Qty: 30 2RF famotidine 20 mg tablet 20 mg PO DAILY Qty: 90 3RF apixaban 5 mg tablet 5 mg PO BID Qty: 180 1RF albuterol sulfate [ProAir HFA] 90 mcg/actuation HFA aerosol inhaler 2 puff INH Q4H PRN (Reason: shortness of breath) Qty: 8.5 5RF metoprolol succinate [Toprol XL] 50 mg tablet extended release 24 hr 50 mg PO BID Qty: 60 5RF Advair HFA 230-21 mcg/actuation HFA aerosol inhaler 1 puff inhalation BID Qty: 12 5RF acetaminophen 650 mg tablet extended release 650 mg PO Q12H Referrals Referrals: Lucian Noe MD [Primary Care Provider] -
--- NOTE | 2022-08-08 03:33 | History & Physical Report ---
Date of Service August 08, 2022 Assessment & Plan (1) Right knee pain: Plan: 86yo Female with PMH CHF, breast cancer on chemo, hx. CABG, HTN, HLD, CKD3, GERD, COPD, DM2, gastroparesis here for right knee pain. Right knee pain -XR no fractures noted -cbc bmp pending -received tylenol in ED -ordered scheduled tylenol ibuprofen lidocaine patch for pain control, ice pack -consider steroid injection -consulted PT/OT Breast cancer -continue anastrozole, eliquis GERD -continue famotidine HTN hx. CABG -continue metoprolol, lasix, lisinopril, ASA, rosuvastatin Gastroparesis -continue reglan DM2 -last A1c 5.8 02/16/23 -not on medication, diet controlled FENa: heart healthy DM2 Code Status: full, POA daughter Irma DVT PPX: eliquis PT/OT: ordered Case Management: will need assistance, patient goal to get home, does not want to live with daughter or at jail Dispo: med/surg Beatriz Rosenthal D.O. PGY 2, FCM (2) CHF (congestive heart failure): (3) HTN (hypertension): (4) Breast carcinoma, lobular: (5) Hyperlipidemia LDL goal <100: (6) GERD (gastroesophageal reflux disease): History of Present Illness Chief Complaint: Right knee pain Primary Care Provider: Lucian Noe MD 86yo Female with PMH CHF, breast cancer on chemo, hx. CABG, HTN, HLD, CKD3, GERD, COPD, DM2, gastroparesis here for right knee pain. Patient states this evening she suddenly developed with knee pain, noted some swelling, states pain made it difficult to bend her knee, she could not go up and down the steps in her mobile home, daughter called EMS. Daughter states patient has been pulling weeks all week, may have aggravated her knee arthritis.. Patient denies fever nausea SOB. Patient lives by herself, does not need assistance at baseline to ambulate. She manages her own medications. States there are 4 steps just inside the front door, one step to the kitchen, one step to the stove. Daughter lives 11mi away, she is KRISTI Solis. Patient states she wants to go back to live in her mobile home, is resistant to living with her daughter for assistance, does not want to go to a jail. Allergies Allergy/AdvReac Type Severity Reaction Status Date / Time nitroglycerin AdvReac Intermediate BP Verified 08/08/22 01:58 Decreases, HR Increases tramadol AdvReac Intermediate faint Verified 08/08/22 01:58 feeling, mind foggy not able to think Home Medications Medication Instructions Recorded Confirmed Type aspirin 81 mg tablet,delayed 81 mg PO QAM 12/13/17 08/08/22 History release rosuvastatin 40 mg tablet (Crestor) 40 mg PO HS 12/13/17 08/08/22 History furosemide 20 mg tablet 20 mg PO QAM 12/11/19 08/08/22 History metoclopramide HCl 10 mg tablet 5 mg PO QPM 12/11/19 08/08/22 History (Reglan) acetaminophen 650 mg 650 mg PO Q12H 08/07/20 08/08/22 History tablet,extended release calcium carbonate 600 mg-vitamin 1 cap PO QAM 11/09/21 08/08/22 History D3 25 mcg (1,000 unit) capsule anastrozole 1 mg tablet (Arimidex) 1 mg PO QAM #90 tabs 03/04/22 08/08/22 Rx potassium chloride 20 mEq 20 meq PO QAM #90 tabs 03/05/22 08/08/22 Rx tablet,extended release(part/cryst) lisinopril 2.5 mg tablet 2.5 mg PO QAM 30 days #30 tabs 03/10/22 08/08/22 Rx famotidine 20 mg tablet 20 mg PO DAILY #90 tabs 04/22/22 08/08/22 Rx apixaban 5 mg tablet 5 mg PO BID #180 tabs 04/27/22 08/08/22 Rx albuterol sulfate 90 mcg/actuation 2 puff inhalation Q4H PRN 05/07/22 08/08/22 Rx aerosol inhaler (ProAir HFA) shortness of breath #8.5 grams metoprolol succinate 50 mg 50 mg PO BID #60 tabs 05/10/22 08/08/22 Rx tablet,extended release 24 hr (Toprol XL) fluticasone propionate 230 1 puff inhalation BID #12 grams 05/27/22 08/08/22 Rx mcg-salmeterol 21 mcg/actuation HFA inhaler (Advair HFA) Past Med/Surg History Medical History Acute hypoxemic respiratory failure due to COVID-19 Anemia Asthma Breast carcinoma, lobular Right. takes Arimidex daily Carotid artery stenosis CHF (congestive heart failure) Chronic obstructive pulmonary disease CKD (chronic kidney disease), stage III COVID-19 virus infection Diabetes mellitus, type 2 no medications -- diet controlled Diverticular disease Elevated vitamin B12 level Gastroparesis GERD (gastroesophageal reflux disease) HTN (hypertension) Hyperlipidemia LDL goal <100 Long-term (current) use of anticoagulants, INR goal 2.0-3.0 Metabolic encephalopathy Multiple pulmonary emboli S/P surgical procedure (~5-10 years ago) reason for warfarin daily Myocardial Infarction [address]. [address] Viera Open wound of left breast hx Osteoarthritis Productive cough Septic shock hx r/t UTI (2017) Systolic CHF, chronic Surgical History H/O vascular surgery port-a-cath insertion History of cardiac cath with stent following CABG with one stent. History of cataract surgery bilateral History of colonoscopy History of coronary artery bypass graft x2 vessels (1994) History of removal of Port-a-Cath Hx of lumpectomy right breast with lymph node removal S/P cholecystectomy Laprascopic S/P debridement right breast wound debridement + wound vac + skin graft from a cadaver. (multiple) S/P lymph node biopsy right breast & axillary Family History Father Lung cancer Brother Prostate cancer Myocardial infarction Other No family history of adverse response to anesthesia Denies family history of Colon cancer Ovarian cancer Breast cancer Social History Smoking Status: Former smoker Tobacco Type: Cigarettes Second Hand Exposure: No; Do You Dip or Chew Tobacco: No; Tobacco Cessation Education Requested by Patient: No Hx Alcohol Use: No Hx Substance Use: No Preferred Language: Moroccan Communication Ability: Effective Visual Impairment: No Limitations Hearing Ability: Normal Spectrograph Operator Required: No Beliefs That Will Affect Care: None marital status: / Current Living Situation: Alone current occupational status: retired Other Information That Helps Us Care for You: No Feels Safe at Home: Yes Safety Concerns: Feels Safe At This Time Dental Care, Regularly: Yes Physical Activity Frequency: Does not Exercise Seatbelt Use: always Assistive Devices: Cane and Walker Physical Exam Constitutional: WD/WN, vitals as above Eyes: PERRL, conjunctivae normal, anicteric sclerae ENMT: external ear and nose normal, oropharynx normal Neck: trachea midline, no thyromegaly Respiratory: normal respiratory effort, lungs clear to auscultation Cardiovascular: Rate/Rhythm: regular rate and regular rhythm Vessels: dorsalis pedis pulses present Extremities: + edema (+1 nonpitting edema b/l) Gastrointestinal (Abdomen): Inspection/Auscultation: abdomen normal to inspection Percussion/Palpation: abdomen soft; abdomen nontender Musculoskeletal: pain on palpation to anterior right knee with minor effusion present, sensation intact throughout, pulses intact, able to move distal extremities. Pain noted on knee flexion. No pain noted on medial or lateral knee palpation. Skin: surgical scars noted on chest Neurologic: normal touch/pain/proprioception and moves all extremities Results & Data Results & Data Vital Signs (Past 12 Hours) Vital Signs Temp Pulse Pulse Resp BP BP Pulse Ox 08/08/22 02:33 76 20 96 08/08/22 02:07 78 24 167/87 H 98 08/08/22 01:27 84 08/08/22 00:27 36.5 C 78 20 171/94 H 96 O2 Del Method 08/08/22 02:33 Room Air 08/08/22 02:07 Room Air 08/08/22 01:27 08/08/22 00:27 Room Air Code Status & VTE Plan VTE Prophylaxis Plan VTE Prophylaxis will be ordered: Yes Supervising Physician Co-Signing Physician Notes Attending addendum: I have physically seen this patient, have supervised the medical residents activities, and agree with the H&P unless as otherwise noted. Assessment and Plan: Right knee pain/ambulatory dysfunction- Negative x-ray Consult PT/OT Symptomatic control with medications as noted: Tylenol, ibuprofen, lidocaine patch, IcyHot Hypertension status post CABG- Continue metoprolol, lisinopril, furosemide and aspirin Hyperlipidemia- Continue rosuvastatin GERD/gastroparesis- Continue famotidine and metoclopramide Remaining orders and notations as noted Resident Activity Tracking Resident Involvement: Resident Care Provided Care Provided: Adult Hospital Medicine (2) CHF (congestive heart failure) Heart failure chronicity: acute on chronic Heart failure type: combined systolic and diastolic Qualified Code(s): I50.43 - Acute on chronic combined systolic (congestive) and diastolic (congestive) heart failure (3) HTN (hypertension) Hypertension type: essential hypertension Qualified Code(s): I10 - Essential (primary) hypertension (4) Breast carcinoma, lobular Laterality: unspecified laterality Qualified Code(s): C50.919 - Malignant neoplasm of unspecified site of unspecified female breast (6) GERD (gastroesophageal reflux disease) Esophagitis presence: esophagitis presence not specified Qualified Code(s): K21.9 - Gastro-esophageal reflux disease without esophagitis
[2022-08-08 04:53] LABS: Basophils # (auto) 0.08 K/uL (0-0.2); Basophils % (auto) 0.8 %; Eosinophils % (auto) 10.5 %; Hematocrit (blood only) 41.8 % (37.0-47.0); Hemoglobin 13.6 g/dl (12.0-16.0); Immature Granulocytes # (auto) 0.03 K/uL (0.01-0.20); Immature Granulocytes % (auto) 0.3 %; Lymphocytes # (auto) 1.14 K/uL (1.2-3.4); Mean Corpuscular Hemoglobin 30.2 pg (25.0-34.0); Mean Corpuscular Hgb Conc 32.5 g/dL (32.0-36.0); Mean Corpuscular Volume 92.9 fL (80.0-100.0); Mean Platelet Volume 9.2 fL (9.4-12.4); Monocytes # (auto) 0.64 K/uL (0.11-0.59); Monocytes % (auto) 6.7 %; Neutrophils # (auto) 6.61 K/uL (1.40-6.50); Neutrophils % (auto) 69.7 %; Platelet Count 192 K/uL (130-400); RDW Coefficient of Variation 12.7 % (11.5-14.5); RDW Standard Deviation 43.1 fL (36.4-46.3)
[2022-08-08 05:08] LABS: Albumin Level 3.9 gm/dl (3.4-5.0); Bilirubin,Total 0.3 mg/dl (0.2-1.0); Calcium 8.6 mg/dl (8.6-10.3); Potassium 4.3 mmol/L (3.5-5.1)
[2022-08-08 05:14] LABS: Albumin Globulin Ratio 1.5 (0.9-2); BUN Creatinine Ratio 24.1 (10-20); Est GFR (African American) 75.1 ml/min; Est GFR (Non-African American) 64.8 ml/min; Globulin 2.6 gm/dl (2.5-4.0); Total Protein 6.5 gm/dl (6.0-8.3)
[2022-08-08] MEDS ORDERED: ALBUTEROL HFA 8 GM INHALER INH PRN (05:47)
[2022-08-08] MEDS: IBUPROFEN 600 MG TAB PO SCH ×4 (06:26→23:47)
[2022-08-08] MEDS: ACETAMINOPHEN 325 MG TAB PO SCH ×4 (06:26→23:48)
--- NOTE | 2022-08-08 07:38 | CT Scan Report ---
Exam(s): CT RIGHT KNEE Without Contrast Age EXAM: CT Right Lower Extremity Without Intravenous Contrast, Knee CLINICAL HISTORY: Reason for exam: severe pain. TECHNIQUE: Axial computed tomography images of the right knee without intravenous contrast. CTDI is 364.51 mGy-cm. Automated exposure control was utilized for the study. A dose lowering technique was utilized adhering to the principles of ALARA. COMPARISON: No relevant prior studies available. FINDINGS: Bones/joints: Moderate hemorrhagic knee joint effusion is seen. Moderate osteoarthritic changes are seen. Mild right medial joint compartmental narrowing identified. The bones are mildly osteopenic. No acute fracture. No dislocation. Soft tissues: 4.1 cm diameter complex Carr cyst is seen. One-point IMPRESSION: 1. Hemorrhagic right knee joint effusion 2. No acute fracture Electronically signed by: Los Blair MD 08/08/22 07:37 AM
[2022-08-08] MEDS: LIDOCAINE 5% 1 PATCH TD SCH (07:39)
[2022-08-08] MEDS: FLUTICASONE/VILANTEROL 200/25MCG 14 PUFFS/INHALER INH SCH (07:41)
[2022-08-08] MEDS: FAMOTIDINE 20 MG TAB PO SCH (08:17)
[2022-08-08] MEDS: FUROSEMIDE 20 MG TAB PO SCH (08:17)
[2022-08-08] MEDS: METOPROLOL SUCC 50MG EXT REL TAB PO SCH ×2 (08:17→21:17)
[2022-08-08] MEDS: ASPIRIN 81 MG ECTAB PO SCH (08:17)
[2022-08-08] MEDS: lisinopril 2.5 MG TAB PO SCH (08:18)
[2022-08-08] MEDS: ANASTROZOLE 1 MG TAB PO SCH (08:18)
[2022-08-08] MEDS: CALCIUM 600MG + VIT D 400 IU TAB PO SCH (08:18)
[2022-08-08] MEDS: APIXABAN 5 MG TABLET PO SCH ×2 (08:19→21:17)
--- NOTE | 2022-08-08 12:58 | XRay Report ---
XR knee RT 1 or 2V routine CLINICAL HISTORY: pain TECHNIQUE: 2 views of the right knee were obtained. Comparison: Comparison is made to knee radiographs 11/16/2020 FINDINGS: There is no evidence of an acute fracture. Degenerative changes are seen in the knee joint most promi nent in the medial compartment. Suprapatellar effusion is seen, similar to prior exam A fabella is in cidentally seen. IMPRESSION: Degenerative changes without evidence of acute injury. Stable right knee effusion. ACT 112: Negative or not required by law. Electronically signed by: Jean Paul Mak M.D. 08/08/2022 12:57 PM
[2022-08-08] MEDS: METOCLOPRAMIDE HCL 5 MG TABLET PO SCH (21:16)
[2022-08-08] MEDS: ROSUVASTATIN CALCIUM 20 MG TAB PO SCH (21:18)
--- NOTE | 2022-08-09 05:20 | Billing Data ---
Date of Service August 09, 2022 Coding Level of Care Code 79749 INT INP/OBS CARE
[2022-08-09] MEDS: ACETAMINOPHEN 325 MG TAB PO SCH ×4 (05:53→23:20)
[2022-08-09] MEDS: FLUTICASONE/VILANTEROL 200/25MCG 14 PUFFS/INHALER INH SCH (08:16)
[2022-08-09] MEDS: IBUPROFEN 600 MG TAB PO SCH ×3 (08:17→23:21)
[2022-08-09] MEDS: METOPROLOL SUCC 50MG EXT REL TAB PO SCH ×2 (08:18→20:35)
[2022-08-09] MEDS: APIXABAN 5 MG TABLET PO SCH (08:18)
[2022-08-09] MEDS: lisinopril 2.5 MG TAB PO SCH (08:18)
[2022-08-09] MEDS: FUROSEMIDE 20 MG TAB PO SCH (08:19)
[2022-08-09] MEDS: ANASTROZOLE 1 MG TAB PO SCH (08:19)
[2022-08-09] MEDS: CALCIUM 600MG + VIT D 400 IU TAB PO SCH (08:20)
[2022-08-09] MEDS: ASPIRIN 81 MG ECTAB PO SCH (08:20)
[2022-08-09] MEDS: FAMOTIDINE 20 MG TAB PO SCH (08:20)
[2022-08-09] MEDS: LIDOCAINE 5% 1 PATCH TD SCH (08:21)
[2022-08-09] MEDS: methylPREDNISolone 40 MG in SYRINGE 0 ML IV SCH ×2 (09:28→17:57)
--- NOTE | 2022-08-09 16:30 | Hospitalist Progress Note ---
Date of Service August 09, 2022 Assessment & Plan (1) Right knee pain: Plan: Hemorrhagic right knee effusion seen on CT scan. Eliquis has been placed on hold. Orthopedic consultation requested. This may need to be aspirated. Parenteral steroid therapy started. Supportive care Breast cancer -continue anastrozole, eliquis GERD -continue famotidine HTN hx. CABG -continue metoprolol, lasix, lisinopril, ASA, rosuvastatin Gastroparesis -continue reglan DM2 -last A1c 5.8 02/16/23 -not on medication, diet controlled FENa: heart healthy DM2 Code Status: full, POA daughter Irma DVT PPX: eliquis PT/OT: ordered Case Management: will need assistance, patient goal to get home, does not want to live with daughter or at half-way Dispo: med/surg Beatriz Rosenthal D.O. PGY 2, FCM (2) CHF (congestive heart failure): Plan: Chronic systolic CHF with known ejection fraction 35%. Monitor intake and output. Continue current medical management (3) HTN (hypertension): Plan: Stable. Continue current medical management (4) Breast carcinoma, lobular: Plan: Currently on anastrozole. No intervention necessary at this time (5) Hyperlipidemia LDL goal <100: Plan: Stable. Continue statin therapy (6) GERD (gastroesophageal reflux disease): Plan: Stable. Continue PPI therapy Plan Await orthopedic consultation and recommendations. OT and PT assessments requested. Disposition to be determined Admission and Anticipated Discharge Date Admission Date: August 08, 2022 Subjective Alert and oriented. No distress. CT scan of the right knee reveals underlying osteoarthritis with evidence of hemorrhagic effusion. Eliquis has been placed on hold. Orthopedic consultation requested. This may need to be aspirated. Parenteral steroid therapy has been ordered. Review of Systems Review of Systems: Constitutional-no fever or chills ENT-no blurred vision, no double vision, no epistaxis, no sore throat Respiratory-no cough, no wheezing, no shortness of breath Cardiac-no palpitations, no chest pain, no syncope GI-no nausea, vomiting, diarrhea, melena, hematochezia -no urinary retention, no urinary incontinence, no dysuria, no hematuria Musculoskeletal-right knee swelling and discomfort with limited range of motion Skin-no bruising, no rashes, no pruritus Neuro-no isolated weakness, no paresthesia, no weakness Psych-no depression, no anxiety Physical Exam Physical Exam: General-alert and oriented x3, no fevers, no chills HEENT-head atraumatic and normocephalic, pupils equal and reactive to light, extraocular muscles intact Neck-no lymphadenopathy or thyromegaly, trachea midline Chest-clear to auscultation percussion. No rales wheezing or rhonchi Cardiac-regular rate and rhythm, normal S1 and S2 Abdomen-normal bowel sounds, nontender, no hepatosplenomegaly Extremities-right knee swelling and tenderness with limited range of motion Neuro-cranial nerves II through XII intact, motor and sensory function within normal limits, strength symmetrical , no focal deficits Psych-normal affect, normal mood Results & Data Results & Data Vital Signs (Past 12 Hours) Vital Signs Temp Pulse Resp BP Pulse Ox O2 Del Method 08/09/22 16:23 36.4 C L 85 16 139/83 96 Room Air 08/09/22 07:31 36.4 C L 80 18 139/82 97 Room Air Laboratory Results 08/08/22 04:35 08/08/22 04:35 PG Care Time/CCT Total # of Minutes Spent Total Time Spent with Patient: Total time spent is greater than 50% in coordination of care (as documented) at patient's floor/unit and/or counseling patient: Coding Level of Care Code 66617 SUB INP/OBS CARE 3/50MIN Diagnoses Right knee pain M25.561 CHF (congestive heart failure) I50.43 Heart failure type: combined systolic and diastolic Heart failure chronicity: acute on chronic HTN (hypertension) I10 Hypertension type: essential hypertension Breast carcinoma, lobular C50.919 Laterality: unspecified laterality Hyperlipidemia LDL goal <100 E78.5 GERD (gastroesophageal reflux disease) K21.9 Esophagitis presence: esophagitis presence not specified (2) CHF (congestive heart failure) Heart failure type: combined systolic and diastolic Heart failure chronicity: acute on chronic Qualified Code(s): I50.43 - Acute on chronic combined systolic (congestive) and diastolic (congestive) heart failure (3) HTN (hypertension) Hypertension type: essential hypertension Qualified Code(s): I10 - Essential (primary) hypertension (4) Breast carcinoma, lobular Laterality: unspecified laterality Qualified Code(s): C50.919 - Malignant neoplasm of unspecified site of unspecified female breast (6) GERD (gastroesophageal reflux disease) Esophagitis presence: esophagitis presence not specified Qualified Code(s): K21.9 - Gastro-esophageal reflux disease without esophagitis
--- NOTE | 2022-08-09 16:48 | Orthopedic Consultation ---
Date of Consultation August 09, 2022 Assessment & Plan (1) Right knee pain: IMPRESSION: Right knee pain secondarily to effusion, hemorrhagic versus exacerbation of degenerative changes. Acute versus acute on chronic Goals: Decrease pain PLAN: RICE. Tylenol as needed for pain. Patient was offered aspiration and cortisone injection. The risks of the injection were discussed include but not limited to: Infection, bleeding, nerve damage, elevated glucose levels, and permanent skin changes at the site of the injection. The patient wished to proceed with the injection. They will keep track of how much pain relief they obtains and for how long. They will ice tonight and over the next several days and understands that they may be more painful due to a steroid flare. The patient and her daughter were in agreement to proceed with the aspiration and cortisone injection. Continue care per the primary team. Will continue to follow while in the hospital. WBAT Follow-up with her orthopedist 2 weeks after her discharge from hospital. PROCEDURE: After obtaining verbal consent, performing a time-out, identifying the right as the correct site for aspiration and cortisone injection. Aleena shelton PA-C, performed the aspiration and cortisone injection under my personal supervision. The superolateral portal was marked. This area was prepped with Betadine, followed by ethyl chloride spray and alcohol wipe. Then, using an 18-gauge needle, 13 cc of blood was aspirated. A combination of 2 mL of 0.5% bupivacaine plain plus 1 mL of 1% lidocaine plainplus 1 mL of 40 mg of Depo-Medrol were easily injected into the right knee. The patient tolerated the procedure well. The area was cleaned and dried and an Kenji bandage for compression was placed over top. The patient noted immediate relief and was dancing as she left the bed to go to her chair. The patient was instructed on what to watch for after the injection. The patient will follow all my above- noted instructions. This chart was completed utilizing [employer] voice recognition software. Grammatical errors, random word insertions, pronoun errors, and incomplete sentences are an occasional consequence of the system. Any questions or concerns about the content, text, or information contained within the body of this dictation should be addressed directly to the author for clarification. Present on Admission?: Yes History of Present Illness Reason for Consultation: Right knee effusion Requesting Physician: Abbi Russell MD Attending Physician: Erik Almanza MD History of Present Illness 86 year old female with spontaneous right knee pain and effusion. She does have a history of bilateral knee OA. She has received injections in the past. The patient was unsure what these injections were or who gave them to her. After speaking to her daughter, who was okay with her receiving an aspiration and cortisone injection today, was noted that she has been seen by Deric Jha from [facility] [place] in the past. Allergies Allergy/AdvReac Type Severity Reaction Status Date / Time nitroglycerin AdvReac Intermediate BP Verified 08/08/22 01:58 Decreases, HR Increases tramadol AdvReac Intermediate faint Verified 08/08/22 01:58 feeling, mind foggy not able to think Home Medications Medication Instructions Recorded Confirmed Type aspirin 81 mg tablet,delayed 81 mg PO QAM 12/13/17 08/08/22 History release rosuvastatin 40 mg tablet (Crestor) 40 mg PO HS 12/13/17 08/08/22 History furosemide 20 mg tablet 20 mg PO QAM 12/11/19 08/08/22 History metoclopramide HCl 10 mg tablet 5 mg PO QPM 12/11/19 08/08/22 History (Reglan) acetaminophen 650 mg 650 mg PO Q12H 08/07/20 08/08/22 History tablet,extended release calcium carbonate 600 mg-vitamin 1 cap PO QAM 11/09/21 08/08/22 History D3 25 mcg (1,000 unit) capsule anastrozole 1 mg tablet (Arimidex) 1 mg PO QAM #90 tabs 03/04/22 08/08/22 Rx potassium chloride 20 mEq 20 meq PO QAM #90 tabs 03/05/22 08/08/22 Rx tablet,extended release(part/cryst) lisinopril 2.5 mg tablet 2.5 mg PO QAM 30 days #30 tabs 03/10/22 08/08/22 Rx famotidine 20 mg tablet 20 mg PO DAILY #90 tabs 04/22/22 08/08/22 Rx apixaban 5 mg tablet 5 mg PO BID #180 tabs 04/27/22 08/08/22 Rx albuterol sulfate 90 mcg/actuation 2 puff inhalation Q4H PRN 05/07/22 08/08/22 Rx aerosol inhaler (ProAir HFA) shortness of breath #8.5 grams metoprolol succinate 50 mg 50 mg PO BID #60 tabs 05/10/22 08/08/22 Rx tablet,extended release 24 hr (Toprol XL) fluticasone propionate 230 1 puff inhalation BID #12 grams 05/27/22 08/08/22 Rx mcg-salmeterol 21 mcg/actuation HFA inhaler (Advair HFA) Patient History Medical History Acute hypoxemic respiratory failure due to COVID-19 Anemia Asthma Breast carcinoma, lobular Right. takes Arimidex daily Carotid artery stenosis CHF (congestive heart failure) Chronic obstructive pulmonary disease CKD (chronic kidney disease), stage III COVID-19 virus infection Diabetes mellitus, type 2 no medications -- diet controlled Diverticular disease Elevated vitamin B12 level Gastroparesis GERD (gastroesophageal reflux disease) HTN (hypertension) Hyperlipidemia LDL goal <100 Long-term (current) use of anticoagulants, INR goal 2.0-3.0 Metabolic encephalopathy Multiple pulmonary emboli S/P surgical procedure (~5-10 years ago) reason for warfarin daily Myocardial Infarction [address]. [address] Viera Open wound of left breast hx Osteoarthritis Productive cough Septic shock hx r/t UTI (2017) Systolic CHF, chronic Surgical History H/O vascular surgery port-a-cath insertion History of cardiac cath with stent following CABG with one stent. History of cataract surgery bilateral History of colonoscopy History of coronary artery bypass graft x2 vessels (1994) History of removal of Port-a-Cath Hx of lumpectomy right breast with lymph node removal S/P cholecystectomy Laprascopic S/P debridement right breast wound debridement + wound vac + skin graft from a cadaver. (multiple) S/P lymph node biopsy right breast & axillary Family History Father Lung cancer Brother Prostate cancer Myocardial infarction Other No family history of adverse response to anesthesia Denies family history of Colon cancer Ovarian cancer Breast cancer Social History Smoking Status: Former smoker Tobacco Type: Cigarettes Second Hand Exposure: No; Do You Dip or Chew Tobacco: No; Tobacco Cessation Education Requested by Patient: No Hx Alcohol Use: No Hx Substance Use: No Preferred Language: Senegalese Communication Ability: Effective Visual Impairment: No Limitations Hearing Ability: Normal Community Relations Coordinator Required: No Beliefs That Will Affect Care: None marital status: / Current Living Situation: Alone current occupational status: retired Other Information That Helps Us Care for You: No Feels Safe at Home: Yes Safety Concerns: Feels Safe At This Time Dental Care, Regularly: Yes Physical Activity Frequency: Does not Exercise Seatbelt Use: always Assistive Devices: Cane and Walker Review of Systems Review of Systems: All systems reviewed & are unremarkable except as noted in HPI & below Physical Exam Physical Exam: RLE: 2+ DP pulse Sensation to light touch is intact Motor to the gastroc soleus, tibialis anterior, and EHL is 5/5. Able to perform straight leg raise. + medial joint line tenderness. - Earl's Ligamentous examination exhibits: Stable Jossue 0 mm anterior translation and firm endpoint Posterior drawer stable Varus stress at 0 and 30 stable Valgus stress at 0 and 30 stable + Effusion Range of motion 5-90. Lidoderm patch over the top of the knee. Results & Data Vital Signs (Past 12 Hours) Vital Signs Temp Pulse Resp BP Pulse Ox O2 Del Method 08/09/22 16:23 36.4 C L 85 16 139/83 96 Room Air 08/09/22 07:31 36.4 C L 80 18 139/82 97 Room Air Laboratory Results Laboratory Results WBC 9.50 K/ul (4.8-10.8) 08/08/22 04:35 RBC 4.50 M/uL (4.20-5.40) 08/08/22 04:35 Hgb 13.6 g/dl (12.0-16.0) 08/08/22 04:35 Hct 41.8 % (37.0-47.0) 08/08/22 04:35 MCV 92.9 fL (80.0-100.0) 08/08/22 04:35 MCH 30.2 pg (25.0-34.0) 08/08/22 04:35 MCHC 32.5 g/dL (32.0-36.0) 08/08/22 04:35 RDW Std Deviation 43.1 fL (36.4-46.3) 08/08/22 04:35 RDW Coeff of Cathy 12.7 % (11.5-14.5) 08/08/22 04:35 Plt Count 192 K/uL (130-400) 08/08/22 04:35 MPV 9.2 fL (9.4-12.4) L 08/08/22 04:35 Immature Gran % (Auto) 0.3 % 08/08/22 04:35 Neut % (Auto) 69.7 % 08/08/22 04:35 Lymph % (Auto) 12.0 % 08/08/22 04:35 Caroline % (Auto) 6.7 % 08/08/22 04:35 Eos % (Auto) 10.5 % 08/08/22 04:35 Baso % (Auto) 0.8 % 08/08/22 04:35 Neut # (Auto) 6.61 K/uL (1.40-6.50) H 08/08/22 04:35 Lymph # (Auto) 1.14 K/uL (1.2-3.4) L 08/08/22 04:35 Caroline # (Auto) 0.64 K/uL (0.11-0.59) H 08/08/22 04:35 Eos # (Auto) 1.00 K/uL (0-0.50) H 08/08/22 04:35 Baso # (Auto) 0.08 K/uL (0-0.2) 08/08/22 04:35 Immature Gran # (Auto) 0.03 K/uL (0.01-0.20) 08/08/22 04:35 Sodium 138 mmol/L (136-145) 08/08/22 04:35 Potassium 4.3 mmol/L (3.5-5.1) 08/08/22 04:35 Chloride 109 mmol/L (98-107) H 08/08/22 04:35 Carbon Dioxide 20 mmol/L (21-32) L 08/08/22 04:35 Anion Gap 9 (3-11) 08/08/22 04:35 BUN 20 mg/dl (6-23) 08/08/22 04:35 Creatinine 0.83 mg/dl (0.6-1.2) 08/08/22 04:35 Est Cr Clr Drug Dosing 46.0 ml/min 08/08/22 04:35 Est GFR ( Amer) 75.1 ml/min 08/08/22 04:35 Est GFR (Non-Af Amer) 64.8 ml/min 08/08/22 04:35 BUN/Creatinine Ratio 24.1 (10-20) H 08/08/22 04:35 Glucose 113 mg/dl (70-99(Fasting)) H 08/08/22 04:35 Calcium 8.6 mg/dl (8.6-10.3) 08/08/22 04:35 Total Bilirubin 0.3 mg/dl (0.2-1.0) 08/08/22 04:35 AST 18 U/L (13-39) 08/08/22 04:35 ALT 10 U/L (7-52) 08/08/22 04:35 Alkaline Phosphatase 119 U/L (34-104) H 08/08/22 04:35 Total Protein 6.5 gm/dl (6.0-8.3) 08/08/22 04:35 Albumin 3.9 gm/dl (3.4-5.0) 08/08/22 04:35 Globulin 2.6 gm/dl (2.5-4.0) 08/08/22 04:35 Albumin/Globulin Ratio 1.5 (0.9-2) 08/08/22 04:35 SARS-CoV-2, RNA, NAAT NEGATIVE (NEGATIVE) 08/08/22 03:52 Impressions Knee X-Ray 08/08/22 01:38 XR knee RT 1 or 2V routine CLINICAL HISTORY: pain TECHNIQUE: 2 views of the right knee were obtained. Comparison: Comparison is made to knee radiographs 11/16/2020 FINDINGS: There is no evidence of an acute fracture. Degenerative changes are seen in the knee joint most prominent in the medial compartment. Suprapatellar effusion is seen, similar to prior exam A fabella is incidentally seen. IMPRESSION: Degenerative changes without evidence of acute injury. Stable right knee effusion. ACT 112: Negative or not required by law. Electronically signed by: Jean Paul Mak M.D. 08/08/2022 12:[address] 08/08/22 02:59 Exam(s): CT RIGHT KNEE Without Contrast Age EXAM: CT Right Lower Extremity Without Intravenous Contrast, Knee CLINICAL HISTORY: Reason for exam: severe pain. TECHNIQUE: Axial computed tomography images of the right knee without intravenous contrast. CTDI is 364.51 mGy-cm. Automated exposure control was utilized for the study. A dose lowering technique was utilized adhering to the principles of ALARA. COMPARISON: No relevant prior studies available. FINDINGS: Bones/joints: Moderate hemorrhagic knee joint effusion is seen. Moderate osteoarthritic changes are seen. Mild right medial joint compartmental narrowing identified. The bones are mildly osteopenic. No acute fracture. No dislocation. Soft tissues: 4.1 cm diameter complex Carr cyst is seen. One-point IMPRESSION: 1. Hemorrhagic right knee joint effusion 2. No acute fracture Electronically signed by: Los Blair MD 08/08/22 07:37 AM
[2022-08-09] MEDS: METOCLOPRAMIDE HCL 5 MG TABLET PO SCH (20:36)
[2022-08-09] MEDS: ROSUVASTATIN CALCIUM 20 MG TAB PO SCH (20:36)
[2022-08-10] MEDS: methylPREDNISolone 40 MG in SYRINGE 0 ML IV SCH ×3 (01:39→16:38)
[2022-08-10] MEDS: ACETAMINOPHEN 325 MG TAB PO SCH ×4 (06:23→23:37)
[2022-08-10] MEDS: FLUTICASONE/VILANTEROL 200/25MCG 14 PUFFS/INHALER INH SCH (08:55)
[2022-08-10] MEDS: METOPROLOL SUCC 50MG EXT REL TAB PO SCH ×2 (08:58→20:28)
[2022-08-10] MEDS: IBUPROFEN 600 MG TAB PO SCH ×3 (08:58→23:38)
[2022-08-10] MEDS: lisinopril 2.5 MG TAB PO SCH (08:59)
[2022-08-10] MEDS: FAMOTIDINE 20 MG TAB PO SCH (08:59)
[2022-08-10] MEDS: ASPIRIN 81 MG ECTAB PO SCH (08:59)
[2022-08-10] MEDS: CALCIUM 600MG + VIT D 400 IU TAB PO SCH (09:00)
[2022-08-10] MEDS: ANASTROZOLE 1 MG TAB PO SCH (09:00)
[2022-08-10] MEDS: FUROSEMIDE 20 MG TAB PO SCH (09:00)
[2022-08-10] MEDS: LIDOCAINE 5% 1 PATCH TD SCH (09:01)
--- NOTE | 2022-08-10 09:22 | Orthopedic Progress Note ---
Date of Service August 10, 2022 Assessment & Plan (1) Right knee pain: Plan: Patient is responding favorably to arthrocentesis as well as a corticosteroid injection. She will continue weightbearing as tolerated and range of motion of the knee as tolerated. She will continue with Kenji wrap to the right knee for 24 hours then may remove. She may rewrap this if it becomes too tight or loose. She will continue to use ice 15 to 20 minutes as needed. She will continue with oral analgesics, Tylenol and Advil as directed and as needed for pain Continue care per the primary team Will continue to follow while in the hospital. [place] [facility] [place] discharge from hospital. Present on Admission?: Yes Admission and Anticipated Discharge Date Admission Date: August 09, 2022 Subjective Patient is an 86-year-old female who was consulted and had a right knee aspirat ion with therapeutic corticosteroid injection on 08/09/2022. She was seen bedside this a.m. nursing, Lionel ORTIZ was present. Patient is alert and oriented x3 pleasant and conversive. She states the knee continues to feel great. She states she has no pain in the knee. She reports she has been utilizing ice. Lionel RN reports that she has been getting ibuprofen and Tylenol routinely for pain. Patient states her pain is controlled she feels great. She does report seeing D[place] Jarvis [place] [facility] [place] She denies any fever, chills, chest pain shortness of breath or any concerns. Review of Systems Review of Systems: Please refer to HPI Physical Exam Physical Exam: General: Patient is alert and oriented x3 no acute distress pleasant and conversive Musculoskeletal/integumentary: Right lower extremity dressing is in place with ice pack over the right knee. This was removed. Skin is normal in color and temperature. Negative for edema or effusion. Negative for erythema. She has very minimal joint line tenderness. She is able to flex the knee to approximately 120 degrees and extend the knee. She has no pain. Crepitation is present. She is able to do a straight leg raise without assistance. She is able to fully dorsiflex and plantarflex right ankle. Sensation is intact over right lower extremity. Dorsal pedis pulses 2. Dressing was reapplied. Ice pack applied to right knee. Results & Data Vital Signs (Past 12 Hours) Vital Signs Temp Pulse Resp BP Pulse Ox O2 Del Method 08/10/22 08:24 36.6 C 102 H 16 120/72 96 Room Air
--- NOTE | 2022-08-10 11:24 | Discharge Summary ---
Date of Service August 10, 2022 Admission HPI Per Admitting Provider 86yo Female with PMH CHF, breast cancer on chemo, hx. CABG, HTN, HLD, CKD3, GERD, COPD, DM2, gastroparesis here for right knee pain. Patient states this evening she suddenly developed with knee pain, noted some swelling, states pain made it difficult to bend her knee, she could not go up and down the steps in her mobile home, daughter called EMS. Daughter states patient has been pulling weeks all week, may have aggravated her knee arthritis.. Patient denies fever nausea SOB. Patient lives by herself, does not need assistance at baseline to ambulate. She manages her own medications. States there are 4 steps just inside the front door, one step to the kitchen, one step to the stove. Daughter lives 11mi away, she is KRISTI Solis. Patient states she wants to go back to live in her mobile home, is resistant to living with her daughter for assistance, does not want to go to a custodial. Principal Diagnosis Right knee hemorrhagic effusion Discharge Exam General-alert and oriented x3, no fevers, no chills HEENT-head atraumatic and normocephalic, pupils equal and reactive to light, extraocular muscles intact Neck-no lymphadenopathy or thyromegaly, trachea midline Chest-clear to auscultation percussion. No rales wheezing or rhonchi Cardiac-regular rate and rhythm, normal S1 and S2 Abdomen-normal bowel sounds, nontender, no hepatosplenomegaly Extremities-right knee swelling much improved after aspiration and injection of steroid by orthopedics. Better range of motion. Less discomfort. Neuro-cranial nerves II through XII intact, motor and sensory function within normal limits, strength symmetrical , no focal deficits Psych-normal affect, normal mood Discharge Data Allergies Allergy/AdvReac Type Severity Reaction Status Date / Time nitroglycerin AdvReac Intermediate BP Verified 08/08/22 01:58 Decreases, HR Increases tramadol AdvReac Intermediate faint Verified 08/08/22 01:58 feeling, mind foggy not able to think Consultations 08/08/22 03:00 ED Decision to Admit Stat 08/09/22 16:22 Consult Orthopedic Surgery Routine Ordered Studies 08/08/22 02:59 CT knee RT wo con Stat Hospital Course (1) Right knee pain: Hemorrhagic right knee effusion seen on CT scan. Eliquis has been placed on hold. Orthopedic consultation appreciated. She underwent aspiration of the right knee yesterday, August 09, with aspiration of blood and subsequent steroid injection. Her right knee has improved considerably and she is ambulating in the room. She will be discharged home today, August 10, and remain off Eliquis for 3 more days. (2) CHF (congestive heart failure): Chronic systolic CHF with known ejection fraction 35%. Monitor intake and output. Continue current medical management. Stable (3) HTN (hypertension): Stable. Continue current medical management (4) Breast carcinoma, lobular: Currently on anastrozole. No intervention necessary at this time (5) Hyperlipidemia LDL goal <100: Stable. Continue statin therapy (6) GERD (gastroesophageal reflux disease): Stable. Continue PPI therapy Plan Home today, August 10. She will remain off Eliquis for 3 more days Total Time Total Time Spent Total Time Spent (In Minutes): 45 minutes Discharge Plan Discharge Items Patient Disposition: Home - Self-Care Reason For Visit: AMBULATION DIFFICULTY Discharge Diagnosis: Hemorrhagic effusion right knee Condition on Discharge: Good Activity: Resume your previous activity Non-emergency contact: Primary Care Provider Call non-emergency contact if: you have any medication questions Follow-up/Referrals: Pro,Lucian Sawyer MD [Primary Care Provider] - Diet: Carb Consistent or DM2 and Heart Healthy Addtl Attending Provider Instructions: Stay off Eliquis for 3 more days Addtl Cycle Specialist Provider Instructions: weight bear as tolerated on the right leg May use ice x15 min with a towel layer as needed contact your orthopedic office who you are already established with, [facility], Deric Jha PA-C to be seen after you are discharged. We recommend seeing them in 2 weeks from being discharged. Pending Studies at Discharge: No Stand-Alone Forms: My [employer], Smoking Cessation Medications and DC Order Prescriptions: Continued aspirin 81 mg tablet,delayed release (DR/EC) 81 mg PO QAM rosuvastatin [Crestor] 40 mg tablet 40 mg PO HS calcium carbonate-vitamin D3 600 mg-25 mcg (1,000 unit) capsule 1 cap PO QAM metoclopramide HCl [Reglan] 10 mg tablet 5 mg PO QPM furosemide 20 mg tablet 20 mg PO QAM anastrozole [Arimidex] 1 mg tablet 1 mg PO QAM Qty: 90 2RF potassium chloride 20 mEq tablet,ER particles/crystals 20 meq PO QAM Qty: 90 1RF lisinopril 2.5 mg tablet 2.5 mg PO QAM 30 Days Qty: 30 2RF famotidine 20 mg tablet 20 mg PO DAILY Qty: 90 3RF apixaban 5 mg tablet 5 mg PO BID Qty: 180 1RF albuterol sulfate [ProAir HFA] 90 mcg/actuation HFA aerosol inhaler 2 puff INH Q4H PRN (Reason: shortness of breath) Qty: 8.5 5RF metoprolol succinate [Toprol XL] 50 mg tablet extended release 24 hr 50 mg PO BID Qty: 60 5RF Advair HFA 230-21 mcg/actuation HFA aerosol inhaler 1 puff inhalation BID Qty: 12 5RF acetaminophen 650 mg tablet extended release 650 mg PO Q12H Discharge Orders: Discharge Order (Routine); Ordered 08/10/22 Ordered By: Erik Almanza Admission Data Admit Date/Time: 08/09/22 16:22 Attending Provider: Erik Almanza Admit Provider: Erik Almanza Primary Care Provider: Lucian Noe Other Providers: Silvano Byrd ; [facility] ; [place] ; [facility] ; [facility] A Coding Level of Care Code 37248 INP/OBS DISCH >30 MIN Diagnoses Right knee pain M25.561 CHF (congestive heart failure) I50.43 Heart failure type: combined systolic and diastolic Heart failure chronicity: acute on chronic HTN (hypertension) I10 Hypertension type: essential hypertension Breast carcinoma, lobular C50.919 Laterality: unspecified laterality Hyperlipidemia LDL goal <100 E78.5 GERD (gastroesophageal reflux disease) K21.9 Esophagitis presence: esophagitis presence not specified
--- NOTE | 2022-08-10 14:22 | Hospitalist Progress Note ---
Date of Service August 10, 2022 Assessment & Plan (1) Right knee pain: Plan: Hemorrhagic right knee effusion seen on CT scan. Eliquis has been placed on hold. Orthopedic consultation appreciated. She underwent aspiration of the right knee yesterday, August 09, with aspiration of blood and subsequent steroid injection. Her right knee has improved considerably and she is ambulating in the room. She will remain off Eliquis for 3 more days. (2) CHF (congestive heart failure): Plan: Chronic systolic CHF with known ejection fraction 35%. Monitor intake and output. Continue current medical management. Stable (3) HTN (hypertension): Plan: Stable. Continue current medical management (4) Breast carcinoma, lobular: Plan: Currently on anastrozole. No intervention necessary at this time (5) Hyperlipidemia LDL goal <100: Plan: Stable. Continue statin therapy (6) GERD (gastroesophageal reflux disease): Plan: Stable. Continue PPI therapy Plan Anticipate discharge to [facility] tomorrow, August 11 Admission and Anticipated Discharge Date Admission Date: August 09, 2022 Subjective The patient is alert. The right knee is feeling much better after aspiration of bloody fluid and injection of steroid. Appreciate orthopedic consultation and recommendations. Parenteral steroids have been discontinued. Anticipate discharge to [facility] tomorrow, August 11 Review of Systems Review of Systems: Constitutional-no fever or chills ENT-no blurred vision, no double vision, no epistaxis, no sore throat Respiratory-no cough, no wheezing, no shortness of breath Cardiac-no palpitations, no chest pain, no syncope GI-no nausea, vomiting, diarrhea, melena, hematochezia -no urinary retention, no urinary incontinence, no dysuria, no hematuria Musculoskeletal-right knee swelling and discomfort have nearly totally resolved. Skin-no bruising, no rashes, no pruritus Neuro-no isolated weakness, no paresthesia, no weakness Psych-no depression, no anxiety Physical Exam Physical Exam: General-alert and oriented x3, no fevers, no chills HEENT-head atraumatic and normocephalic, pupils equal and reactive to light, extraocular muscles intact Neck-no lymphadenopathy or thyromegaly, trachea midline Chest-clear to auscultation percussion. No rales wheezing or rhonchi Cardiac-regular rate and rhythm, normal S1 and S2 Abdomen-normal bowel sounds, nontender, no hepatosplenomegaly Extremities-right knee swelling much improved after aspiration and injection of steroid by orthopedics. Better range of motion. Less discomfort. Neuro-cranial nerves II through XII intact, motor and sensory function within normal limits, strength symmetrical , no focal deficits Psych-normal affect, normal mood Results & Data Results & Data Vital Signs (Past 12 Hours) Vital Signs Temp Pulse Resp BP Pulse Ox O2 Del Method 08/10/22 08:24 36.6 C 102 H 16 120/72 96 Room Air Laboratory Results 08/08/22 04:35 08/08/22 04:35 PG Care Time/CCT Total # of Minutes Spent Total Time Spent with Patient: Total time spent is greater than 50% in coordination of care (as documented) at patient's floor/unit and/or counseling patient: Coding Level of Care Code 18110 SUB INP/OBS CARE 3/50MIN Diagnoses Right knee pain M25.561 CHF (congestive heart failure) I50.43 Heart failure type: combined systolic and diastolic Heart failure chronicity: acute on chronic HTN (hypertension) I10 Hypertension type: essential hypertension Breast carcinoma, lobular C50.919 Laterality: unspecified laterality Hyperlipidemia LDL goal <100 E78.5 GERD (gastroesophageal reflux disease) K21.9 Esophagitis presence: esophagitis presence not specified (2) CHF (congestive heart failure) Heart failure type: combined systolic and diastolic Heart failure chronicity: acute on chronic Qualified Code(s): I50.43 - Acute on chronic combined systolic (congestive) and diastolic (congestive) heart failure (3) HTN (hypertension) Hypertension type: essential hypertension Qualified Code(s): I10 - Essential (primary) hypertension (4) Breast carcinoma, lobular Laterality: unspecified laterality Qualified Code(s): C50.919 - Malignant neoplasm of unspecified site of unspecified female breast (6) GERD (gastroesophageal reflux disease) Esophagitis presence: esophagitis presence not specified Qualified Code(s): K21.9 - Gastro-esophageal reflux disease without esophagitis
[2022-08-10 20:27] VITALS: O2SAT 96
[2022-08-10] MEDS: ROSUVASTATIN CALCIUM 20 MG TAB PO SCH (20:28)
[2022-08-10] MEDS: METOCLOPRAMIDE HCL 5 MG TABLET PO SCH (20:29)
[2022-08-11] MEDS: methylPREDNISolone 40 MG in SYRINGE 0 ML IV SCH ×2 (01:13→08:24)
[2022-08-11] MEDS: ACETAMINOPHEN 325 MG TAB PO SCH ×2 (06:27→12:07)
[2022-08-11 07:42] VITALS: BP 122/69; PULSE 79; TEMP 97.7
[2022-08-11] MEDS: FLUTICASONE/VILANTEROL 200/25MCG 14 PUFFS/INHALER INH SCH (08:22)
[2022-08-11] MEDS: LIDOCAINE 5% 1 PATCH TD SCH (08:23)
[2022-08-11] MEDS: METOPROLOL SUCC 50MG EXT REL TAB PO SCH (08:23)
[2022-08-11] MEDS: IBUPROFEN 600 MG TAB PO SCH (08:24)
[2022-08-11] MEDS: lisinopril 2.5 MG TAB PO SCH (08:24)
[2022-08-11] MEDS: FUROSEMIDE 20 MG TAB PO SCH (08:24)
[2022-08-11] MEDS: CALCIUM 600MG + VIT D 400 IU TAB PO SCH (08:25)
[2022-08-11] MEDS: ANASTROZOLE 1 MG TAB PO SCH (08:25)
[2022-08-11] MEDS: ASPIRIN 81 MG ECTAB PO SCH (08:25)
[2022-08-11] MEDS: FAMOTIDINE 20 MG TAB PO SCH (08:25)
--- NOTE | 2022-08-11 12:12 | Discharge Summary ---
Date of Service August 11, 2022 Admission HPI Per Admitting Provider 86yo Female with PMH CHF, breast cancer on chemo, hx. CABG, HTN, HLD, CKD3, GERD, COPD, DM2, gastroparesis here for right knee pain. Patient states this evening she suddenly developed with knee pain, noted some swelling, states pain made it difficult to bend her knee, she could not go up and down the steps in her mobile home, daughter called EMS. Daughter states patient has been pulling weeks all week, may have aggravated her knee arthritis.. Patient denies fever nausea SOB. Patient lives by herself, does not need assistance at baseline to ambulate. She manages her own medications. States there are 4 steps just inside the front door, one step to the kitchen, one step to the stove. Daughter lives 11mi away, she is KRISTI Solis. Patient states she wants to go back to live in her mobile home, is resistant to living with her daughter for assistance, does not want to go to a [facility]. Principal Diagnosis Hemorrhagic effusion right knee Discharge Exam General-alert and oriented x3, no fevers, no chills HEENT-head atraumatic and normocephalic, pupils equal and reactive to light, extraocular muscles intact Neck-no lymphadenopathy or thyromegaly, trachea midline Chest-clear to auscultation percussion. No rales wheezing or rhonchi Cardiac-regular rate and rhythm, normal S1 and S2 Abdomen-normal bowel sounds, nontender, no hepatosplenomegaly Extremities-right knee swelling much improved after aspiration and injection of steroid by orthopedics. Better range of motion. Less discomfort. Neuro-cranial nerves II through XII intact, motor and sensory function within normal limits, strength symmetrical , no focal deficits Psych-normal affect, normal mood Discharge Data Allergies Allergy/AdvReac Type Severity Reaction Status Date / Time nitroglycerin AdvReac Intermediate BP Verified 08/08/22 01:58 Decreases, HR Increases tramadol AdvReac Intermediate faint Verified 08/08/22 01:58 feeling, mind foggy not able to think Consultations 08/08/22 03:00 ED Decision to Admit Stat 08/09/22 16:22 Consult Orthopedic Surgery Routine Ordered Studies 08/08/22 02:59 CT knee RT wo con Stat Hospital Course (1) Right knee pain: Hemorrhagic right knee effusion seen on CT scan. Eliquis has been placed on hold. Will restart in a few days. Orthopedic consultation appreciated. She underwent aspiration of the right knee on August 09, with aspiration of blood and subsequent steroid injection. Her right knee has improved considerably and she is ambulating in the room. She will remain off Eliquis for several more days. (2) CHF (congestive heart failure): Chronic systolic CHF with known ejection fraction 35%. Monitor intake and output. Continue current medical management. Stable (3) HTN (hypertension): Stable. Continue current medical management (4) Breast carcinoma, lobular: Currently on anastrozole. No intervention necessary at this time (5) Hyperlipidemia LDL goal <100: Stable. Continue statin therapy (6) GERD (gastroesophageal reflux disease): Stable. Continue PPI therapy Plan discharge to [facility] today, August 11 Total Time Total Time Spent Total Time Spent (In Minutes): 40 minutes Discharge Plan Discharge Items Patient Disposition: Transfer Intermediate Fac Reason For Visit: AMBULATION DIFFICULTY Discharge Diagnosis: Hemorrhagic effusion right knee Condition on Discharge: Good Activity: Resume your previous activity Non-emergency contact: Primary Care Provider Call non-emergency contact if: you have any medication questions Follow-up/Referrals: Pro,Lucian Sawyer MD [Primary Care Provider] - Diet: Carb Consistent or DM2 and Heart Healthy Addtl Attending Provider Instructions: Stay off Eliquis for 3 more days Addtl Baseball Glove Stuffer Provider Instructions: weight bear as tolerated on the right leg May use ice x15 min with a towel layer as needed contact your orthopedic office who you are already established with, [facility], Deric Jha PA-C to be seen after you are discharged. We recommend seeing them in 2 weeks from being discharged. Pending Studies at Discharge: No Stand-Alone Forms: My [employer], Smoking Cessation Skilled Items Patient informed of condition?: Yes DNR: Yes Discharge Level of Care: Skilled Communicable Disease: No Discharge Prognosis: Stable Lines: None Urinary Catheter: No Medications and DC Order Prescriptions: Continued aspirin 81 mg tablet,delayed release (DR/EC) 81 mg PO QAM rosuvastatin [Crestor] 40 mg tablet 40 mg PO HS calcium carbonate-vitamin D3 600 mg-25 mcg (1,000 unit) capsule 1 cap PO QAM metoclopramide HCl [Reglan] 10 mg tablet 5 mg PO QPM furosemide 20 mg tablet 20 mg PO QAM anastrozole [Arimidex] 1 mg tablet 1 mg PO QAM Qty: 90 2RF potassium chloride 20 mEq tablet,ER particles/crystals 20 meq PO QAM Qty: 90 1RF lisinopril 2.5 mg tablet 2.5 mg PO QAM 30 Days Qty: 30 2RF famotidine 20 mg tablet 20 mg PO DAILY Qty: 90 3RF apixaban 5 mg tablet 5 mg PO BID Qty: 180 1RF albuterol sulfate [ProAir HFA] 90 mcg/actuation HFA aerosol inhaler 2 puff INH Q4H PRN (Reason: shortness of breath) Qty: 8.5 5RF metoprolol succinate [Toprol XL] 50 mg tablet extended release 24 hr 50 mg PO BID Qty: 60 5RF Advair HFA 230-21 mcg/actuation HFA aerosol inhaler 1 puff inhalation BID Qty: 12 5RF acetaminophen 650 mg tablet extended release 650 mg PO Q12H Discharge Orders: Discharge Order (Routine); Ordered 08/11/22 Ordered By: Erik Almanza Admission Data Admit Date/Time: 08/09/22 16:22 Attending Provider: Erik Almanza Admit Provider: Erik Almanza Primary Care Provider: Lucian Noe Other Providers: Silvano Byrd ; [facility], ; [place] ; [facility] ; [facility] A Coding Level of Care Code 62754 INP/OBS DISCH >30 MIN Diagnoses Right knee pain M25.561 CHF (congestive heart failure) I50.43 Heart failure type: combined systolic and diastolic Heart failure chronicity: acute on chronic HTN (hypertension) I10 Hypertension type: essential hypertension Breast carcinoma, lobular C50.919 Laterality: unspecified laterality Hyperlipidemia LDL goal <100 E78.5 GERD (gastroesophageal reflux disease) K21.9 Esophagitis presence: esophagitis presence not specified
--- NOTE | 2022-08-11 13:35 | Discharge Summary ---
Date of Service August 11, 2022 Admission HPI Per Admitting Provider 86yo Female with PMH CHF, breast cancer on chemo, hx. CABG, HTN, HLD, CKD3, GERD, COPD, DM2, gastroparesis here for right knee pain. Patient states this evening she suddenly developed with knee pain, noted some swelling, states pain made it difficult to bend her knee, she could not go up and down the steps in her mobile home, daughter called EMS. Daughter states patient has been pulling weeks all week, may have aggravated her knee arthritis.. Patient denies fever nausea SOB. Patient lives by herself, does not need assistance at baseline to ambulate. She manages her own medications. States there are 4 steps just inside the front door, one step to the kitchen, one step to the stove. Daughter lives 11mi away, she is KRISTI Solis. Patient states she wants to go back to live in her mobile home, is resistant to living with her daughter for assistance, does not want to go to a [facility]. Principal Diagnosis Hemorrhagic right knee effusion Discharge Data Allergies Allergy/AdvReac Type Severity Reaction Status Date / Time nitroglycerin AdvReac Intermediate BP Verified 08/08/22 01:58 Decreases, HR Increases tramadol AdvReac Intermediate faint Verified 08/08/22 01:58 feeling, mind foggy not able to think Consultations 08/08/22 03:00 ED Decision to Admit Stat 08/09/22 16:22 Consult Orthopedic Surgery Routine Ordered Studies 08/08/22 02:59 CT knee RT wo con Stat Total Time Total Time Spent Total Time Spent (In Minutes): 45 minutes Discharge Plan Discharge Items Patient Disposition: Home - Home Health Services Reason For Visit: AMBULATION DIFFICULTY Discharge Diagnosis: Hemorrhagic effusion right knee Condition on Discharge: Good Activity: Resume your previous activity Non-emergency contact: Primary Care Provider Call non-emergency contact if: you have any medication questions Follow-up/Referrals: Pro,Lucian Sawyer MD [Primary Care Provider] - 08/18/22 3:00 pm Diet: Carb Consistent or DM2 and Heart Healthy Addtl Attending Provider Instructions: Stay off Eliquis for 3 more days Addtl Human Service Worker Provider Instructions: weight bear as tolerated on the right leg May use ice x15 min with a towel layer as needed contact your orthopedic office who you are already established with, [facility], Deric Jha PA-C to be seen after you are discharged. We recommend seeing them in 2 weeks from being discharged. Pending Studies at Discharge: No Stand-Alone Forms: My [facility] [employer], Smoking Cessation Skilled Items Patient informed of condition?: Yes DNR: Yes Discharge Level of Care: Skilled Communicable Disease: No Discharge Prognosis: Stable Lines: None Urinary Catheter: No Medications and DC Order Prescriptions: Continued aspirin 81 mg tablet,delayed release (DR/EC) 81 mg PO QAM rosuvastatin [Crestor] 40 mg tablet 40 mg PO HS calcium carbonate-vitamin D3 600 mg-25 mcg (1,000 unit) capsule 1 cap PO QAM metoclopramide HCl [Reglan] 10 mg tablet 5 mg PO QPM furosemide 20 mg tablet 20 mg PO QAM anastrozole [Arimidex] 1 mg tablet 1 mg PO QAM Qty: 90 2RF potassium chloride 20 mEq tablet,ER particles/crystals 20 meq PO QAM Qty: 90 1RF lisinopril 2.5 mg tablet 2.5 mg PO QAM 30 Days Qty: 30 2RF famotidine 20 mg tablet 20 mg PO DAILY Qty: 90 3RF apixaban 5 mg tablet 5 mg PO BID Qty: 180 1RF albuterol sulfate [ProAir HFA] 90 mcg/actuation HFA aerosol inhaler 2 puff INH Q4H PRN (Reason: shortness of breath) Qty: 8.5 5RF metoprolol succinate [Toprol XL] 50 mg tablet extended release 24 hr 50 mg PO BID Qty: 60 5RF Advair HFA 230-21 mcg/actuation HFA aerosol inhaler 1 puff inhalation BID Qty: 12 5RF acetaminophen 650 mg tablet extended release 650 mg PO Q12H Discharge Orders: Discharge Order (Routine); Ordered 08/11/22 Ordered By: Erik Almanza Admission Data Admit Date/Time: 08/09/22 16:22 Attending Provider: Erik Almanza Admit Provider: Erik Almanza Primary Care Provider: Lucian Noe Other Providers: Silvano Byrd ; [facility], ; [facility] ; [facility] ; Bader,Chuck A Coding Level of Care Code 20245 INP/OBS DISCH >30 MIN Diagnoses
== END 2022-08-11 15:31 | disposition home health service (06) | DRG 565 ==
LOC: ED 00:37 → 3N 00:37 → SUATTDRO 03:33 → 3N 05:00

== ENCOUNTER 2022-08-23 21:11 | Observation (INO) ==
--- NOTE | 2022-08-23 22:49 | Ultrasound Report ---
Exam(s): US VENOUS RIGHT LOWER EXTREMITY EXAM: US Duplex Right Lower Extremity Veins CLINICAL HISTORY: Reason for exam: calf pain. TECHNIQUE: Real-time duplex ultrasound scan of the right lower extremity veins integrating B-mode two-dimensional vascular structure, Doppler spectral analysis, color flow Doppler imaging and compression. COMPARISON: No relevant prior studies available. FINDINGS: Deep veins: Unremarkable. No DVT in the visualized common femoral, femoral, proximal deep femoral or popliteal veins. The veins demonstrate normal color flow, are normally compressible, with normal phasic flow and/or augmentation response. Superficial veins: Unremarkable. No thrombus in the visualized great saphenous vein. Soft tissues: Right popliteal fossa Carr's cyst. IMPRESSION: No acute findings in the right lower extremity veins. Electronically signed by: Joel Crabtree MD 08/23/22 22:48 PM
--- NOTE | 2022-08-24 00:28 | Emergency Department Note ---
Impression & Plan Right knee pain, Ambulatory dysfunction ED Provider Note CHIEF COMPLAINT: Right knee pain HISTORY OF PRESENT ILLNESS: This 86-year-old female patient presents to the emergency department via private vehicle approximately 6 hours after the onset of pain in the right knee. The patient states she was at a picnic and believes she was sitting for too long. When she went to get up, she noticed that there was increased pain in the right knee. She states when she flexes her toes, she feels a tightness in the calf. She denies any direct trauma or injury. No recent tick bite. No redness or swelling. She states she was having difficulty ambulating in her house, as the floors are uneven and she has several steps she needs to navigate. She states she had to contact her daughter and she needed a significant assist to walk down the stairs out of the house. She was unable to walk up the stairs at all while at home. The patient denies swelling or bruising. There is pain diffusely throughout the knee, but primarily behind the knee and radiating into the calf. They rate the pain as aching and 9/10. The patient states they are not able to walk on it. No numbness or tingling. No previous injuries to this knee. No ankle, foot or hip pain. The patient has taken several doses of Tylenol just prior to arrival. She is on blood thinners and has not taken NSAIDs. She states she was seen here in the emergency department about 2 to 3 weeks ago for the same symptoms and was admitted. She had an arthrocentesis completed at that time by orthopedics. She has not followed up as an outpatient with orthopedics REVIEW OF SYSTEMS: A 6 system review of systems was completed with positives and pertinent negatives listed in the HPI. ALLERGIES: Nitroglycerin, tramadol PHYSICAL EXAM: Vital Signs: Reviewed Nurse's notes, vital signs stable. GENERAL: This is an 86-year-old female, no acute distress, but appears in pain, well-developed, well-nourished. MENTAL STATUS: Alert, oriented to person place and time, and cooperative. MUSCULOSKELETAL: The right knee is not signifi cantly swollen. There is no ecchymosis. There is no obvious joint effusion present. The patient is tender diffusely. She is tender behind the knee and into the proximal calf. There is no specific joint line tenderness. The patella does appropriately subluxate. Range of motion is full, but tender. Strength of the quads and hamstrings is 5/5. Malcolm's is negative. Jossue's and Anterior Drawer tests are negative. There is no discomfort or laxity with varus and valgus stressing. The foot and toes are warm and well-perfused. Dorsalis pedis pulse 2+. Sensation to pain and light touch is intact. Capillary refill less than 2 seconds. RADIOLOGY: X-ray right knee, per my interpretation: No acute fracture or subluxation. EMERGENCY DEPARTMENT COURSE: I examined the patient. X-rays of the right knee were reviewed by myself and Dr. Delgado and reveal no acute findings. Ultrasound completed and reviewed by radiologist as noted. I discussed findings with the patient and her daughter bedside. I offered ambulatory trial with potential to discharge home given the negative work-up versus admission for rehabilitation and placement. The patient was uncertain which direction she wo uld like to go. She really does not wish to stay in the hospital, but does not feel safe going home. Ambulatory trial was completed. Patient was unable to ambulate more than a few feet with the assistance of a walker without feeling the need to sit, like her knee may give out on her, and experiencing excruciating pain. At this time, we felt that it would be unsafe for the patient to return home as she will be unable to get in/out of her house or through her house with multiple steps and uneven slim. She will be admitted to the hospital for ambulatory dysfunction and probable placement to rehab. IV access was obtained, labs drawn. COVID-19 testing was completed. The patient will be admitted to the [facility] hospitalist service. Please see hospitalist dictation regarding ongoing management care of this patient Differential diagnosis includes fracture, subluxation, dislocation, contusion, ligamentous injury, neurovascular, compartment syndrome, rhabdomyolysis, as well as other pathologies. I attest that I have personally reviewed the patient's current medication list. Blood Pressure Screening: Patient was found to have a slightly elevated blood pressure due to circumstances. I do not believe that the patient requires hypertension monitoring. The chart was completed utilizing [employer] voice recognition software. Grammatical errors, random word insertions, pronoun errors, and incomplete sentences are an occasional consequence of this system due to software limitations, ambient noise, and hardware issues. Any formal questions or concerns about the content, text, or information contained within the body of this dictation should be directly addressed to the provider for clarification. Past Med/Surg History Medical History Acute hypoxemic respiratory failure due to COVID-19 Anemia Asthma Breast carcinoma, lobular Right. takes Arimidex daily Carotid artery stenosis CHF (congestive heart failure) Chronic obstructive pulmonary disease CKD (chronic kidney disease), stage III COVID-19 virus infection Diabetes mellitus, type 2 no medications -- diet controlled Diverticular disease Elevated vitamin B12 level Gastroparesis GERD (gastroesophageal reflux disease) HTN (hypertension) Hyperlipidemia LDL goal <100 Long-term (current) use of anticoagulants, INR goal 2.0-3.0 Metabolic encephalopathy Multiple pulmonary emboli S/P surgical procedure (~5-10 years ago) reason for warfarin daily Myocardial Infarction [address]. [address] Viera Open wound of left breast hx Osteoarthritis Productive cough Septic shock hx r/t UTI (2018) Systolic CHF, chronic Surgical History H/O vascular surgery History of cardiac cath History of cataract surgery History of colonoscopy History of coronary artery bypass graft History of removal of Port-a-Cath Hx of lumpectomy S/P cholecystectomy S/P debridement S/P lymph node biopsy Family History Father Lung cancer Brother Prostate cancer Myocardial infarction Other No family history of adverse response to anesthesia Denies family history of Colon cancer Ovarian cancer Breast cancer Social History Smoking Status: Former smoker Tobacco Type: Cigarettes Second Hand Exposure: No; Do You Dip or Chew Tobacco: No; Tobacco Cessation Education Requested by Patient: No Hx Alcohol Use: No Hx Substance Use: No Preferred Language: Belarusian Communication Ability: Effective Visual Impairment: No Limitations Hearing Ability: Normal Welt Slasher Required: No Beliefs That Will Affect Care: None marital status: / Current Living Situation: Alone current occupational status: retired Other Information That Helps Us Care for You: No Feels Safe at Home: Yes Safety Concerns: Feels Safe At This Time Dental Care, Regularly: Yes Physical Activity Frequency: Does not Exercise Seatbelt Use: always Assistive Devices: Walker Allergies Allergies Allergy/AdvReac Type Severity Reaction Status Date / Time nitroglycerin AdvReac Intermediate BP Verified 08/18/22 15:39 Decreases, HR Increases tramadol AdvReac Intermediate faint Verified 08/18/22 15:39 feeling, mind foggy not able to think Home Meds Home Medications Medication Instructions Recorded Confirmed aspirin 81 mg tablet,delayed 81 mg PO QAM 12/13/17 08/24/22 release rosuvastatin 40 mg tablet (Crestor) 40 mg PO HS 12/13/17 08/24/22 furosemide 20 mg tablet 20 mg PO QAM 12/11/19 08/24/22 metoclopramide HCl 10 mg tablet 5 mg PO UD 12/11/19 08/24/22 (Reglan) acetaminophen 650 mg 650 mg PO Q12H 08/07/20 08/24/22 tablet,extended release calcium carbonate 600 mg-vitamin 1 cap PO QAM 11/09/21 08/24/22 D3 25 mcg (1,000 unit) capsule Previous Rx's Medication Instructions Recorded anastrozole 1 mg tablet (Arimidex) 1 mg PO QAM #90 tabs 03/04/22 potassium chloride 20 mEq 20 meq PO QAM #90 tabs 03/05/22 tablet,extended release(part/cryst) lisinopril 2.5 mg tablet 2.5 mg PO QAM 30 days #30 tabs 03/10/22 famotidine 20 mg tablet 20 mg PO DAILY #90 tabs 04/22/22 apixaban 5 mg tablet 5 mg PO BID #180 tabs 04/27/22 albuterol sulfate 90 mcg/actuation 2 puff inhalation Q4H PRN 05/07/22 aerosol inhaler (ProAir HFA) shortness of breath #8.5 grams metoprolol succinate 50 mg 50 mg PO BID #60 tabs 05/10/22 tablet,extended release 24 hr (Toprol XL) fluticasone propionate 230 1 puff inhalation BID #12 grams 05/27/22 mcg-salmeterol 21 mcg/actuation HFA inhaler (Advair HFA) Results & Data (ED) Vital Signs Vital Signs - 24 hr 08/23/22 21:15 08/24/22 01:46 Temperature 36.5 C Temperature Source Temporal Artery Scan Pulse Rate 87 Pulse Rate [Left Finger] 71 Respiratory Rate 18 18 Respiratory Effort / Characteristics Non-Labored Spontaneous Respiratory Depth Normal Normal Respiratory Pattern Regular Blood Pressure 134/79 Blood Pressure [Left Arm] 158/79 H Blood Pressure Mean 97 Blood Pressure Mean [Left Arm] 105 Blood Pressure Position [Left Arm] Lying Pulse Oximetry 98 97 Oxygen Delivery Method Room Air Room Air Sepsis Recent Fever Within 48 Hours No Sepsis New/Unexplained Change in Mental Status N/A Sepsis Action Taken by Nursing No Action Required Laboratory Data 08/24/22 00:50 08/24/22 00:50 Lab Results 08/24/22 08/24/22 08/24/22 Range/Units 00:50 00:50 01:00 WBC 13.43 H (4.8-10.8) K/ul RBC 4.52 (4.20-5.40) M/uL Hgb 13.7 (12.0-16.0) g/dl Hct 41.5 (37.0-47.0) % MCV 91.8 (80.0-100.0) fL MCH 30.3 (25.0-34.0) pg MCHC 33.0 (32.0-36.0) g/dL RDW Std Deviation 43.8 (36.4-46.3) fL RDW Coeff of Cathy 13.0 (11.5-14.5) % Plt Count 229 (130-400) K/uL MPV 9.1 L (9.4-12.4) fL Immature Gran % (Auto) 0.5 % Neut % (Auto) 77.3 % Lymph % (Auto) 11.2 % Shackelford % (Auto) 7.8 % Eos % (Auto) 2.8 % Baso % (Auto) 0.4 % Neut # (Auto) 10.37 H (1.40-6.50) K/uL Lymph # (Auto) 1.51 (1.2-3.4) K/uL Shackelford # (Auto) 1.05 H (0.11-0.59) K/uL Eos # (Auto) 0.38 (0-0.50) K/uL Baso # (Auto) 0.05 (0-0.2) K/uL Immature Gran # (Auto) 0.07 (0.01-0.20) K/uL Sodium 136 (136-145) mmol/L Potassium 3.7 (3.5-5.1) mmol/L Chloride 102 (98-107) mmol/L Carbon Dioxide 27 (21-32) mmol/L Anion Gap 7 (3-11) BUN 21 (6-23) mg/dl Creatinine 0.94 (0.6-1.2) mg/dl Est Cr Clr Drug Dosing Not Reportable Est GFR ( Amer) 64.6 ml/min Est GFR (Non-Af Amer) 55.7 ml/min BUN/Creatinine Ratio 22.3 H (10-20) Glucose 103 H (70-99(Fasting)) mg/dl Calcium 9.2 (8.6-10.3) mg/dl Total Bilirubin 0.7 (0.2-1.0) mg/dl AST 21 (13-39) U/L ALT 20 (7-52) U/L Alkaline Phosphatase 123 H (34-104) U/L Total Protein 7.2 (6.0-8.3) gm/dl Albumin 4.3 (3.4-5.0) gm/dl Globulin 2.9 (2.5-4.0) gm/dl Albumin/Globulin Ratio 1.5 (0.9-2) SARS-CoV-2, RNA, NAAT NEGATIVE (NEGATIVE) Administered Medications Acetaminophen (Acetaminophen 325 Mg Tab) 650 mg PO Q12H [facility] Stop: 09/23/22 08:59 Last Admin: 08/24/22 07:50 Dose: 650 mg Documented By: ANUM Anastrozole (Anastrozole 1 Mg Tab) 1 mg PO [facility] Stop: 09/23/22 08:59 Last Admin: 08/24/22 07:49 Dose: 1 mg Documented By: ANUM Co-signed By: CORINNE Apixaban (Apixaban 5 Mg Tablet) 5 mg PO BID [facility] Stop: 09/23/22 08:59 Last Admin: 08/24/22 07:48 Dose: 5 mg Documented By: ANUM Aspirin (Aspirin 81 Mg Ectab) 81 mg PO [facility] Stop: 09/23/22 08:59 Last Admin: 08/24/22 07:48 Dose: 81 mg Documented By: ANUM Calcium/Vitamin D (Calcium 600mg + Vit D 400 Iu Tab) 1 tab PO [facility] Stop: 09/23/22 08:59 Last Admin: 08/24/22 07:49 Dose: 1 tab Documented By: ANUM Famotidine (Famotidine 20 Mg Tab) 20 mg PO DAILY [facility] Stop: 09/23/22 08:59 Last Admin: 08/24/22 08:05 Dose: 20 mg Documented By: ANUM Fluticasone/Vilanterol (Fluticasone/Vilanterol 100/25mcg 14 Puffs/Inhaler) 1 puffs INH DAILY [facility] Stop: 09/23/22 08:59 Last Admin: 08/24/22 07:47 Dose: 1 puffs Documented By: ANUM Furosemide ([facility]semide 20 Mg Tab) [facility] [place] [place] Stop: 09/23/22 08:59 Last Admin: 08/24/22 07:49 Dose: 20 mg Documented By: ANUM Lisinopril (Lisinopril 2.5 Mg Tab) 2.5 mg PO [facility] Stop: 09/23/22 08:59 Last Admin: 08/24/22 07:49 Dose: 2.5 mg Documented By: ANUM Metoprolol Succinate (Metoprolol Succ 50mg Ext Rel Tab) 50 mg PO BID [facility] Stop: 09/23/22 08:59 Last Admin: 08/24/22 07:48 Dose: 50 mg Documented By: ANUM Potassium Chloride (Potassium Chloride Crtab 20 Meq Tabcr) 20 meq [facility] [place] [place] Stop: 09/23/22 08:59 Last Admin: 08/24/22 07:48 Dose: 20 meq Documented By: ANUM Imaging Data Radiologist's Impression: Knee X-Ray 08/23/22 21:18 XR knee RT 3V CLINICAL HISTORY: Knee trauma, no prior imaging COMPARISON: Right knee radiographs and CT of the right knee August 08, 2022. FINDINGS: Alignment of the right knee is anatomic. A moderate sized right knee joint effusion has decreased in size since prior radiograph and CT. No acute fracture is present. No osseous lesions are noted. There is severe right knee osteoarthritis, most pronounced within the patellofemoral compartment. IMPRESSION: 1. No acute fracture. 2. Moderate size right knee joint effusion, decreased in size since prior radiograph and CT. 3. Severe right knee osteoarthritis, most pronounced within the patellofemoral compartment. ACT 112: Negative or not required by law. Electronically signed by: Guzman Plata M.D. 08/24/2022 7:32 AM Discharge Plan Visit Data Chief Complaint: Knee Injury/Pain Stated Complaint: R KNEE PAIN ED Provider: Julio Delgado ED Midlevel Provider: Jodie Johnston Discharge Problem: Right knee pain, Ambulatory dysfunction Patient Disposition: Admitted As Inpatient Discharge Instructions Interventions: ED Discharge Assessment Last Done: 08/24/22 04:45
[2022-08-24 01:10] LABS: Basophils # (auto) 0.05 K/uL (0-0.2); Basophils % (auto) 0.4 %; Eosinophils # (auto) 0.38 K/uL (0-0.50); Eosinophils % (auto) 2.8 %; Hematocrit (blood only) 41.5 % (37.0-47.0); Hemoglobin 13.7 g/dl (12.0-16.0); Immature Granulocytes # (auto) 0.07 K/uL (0.01-0.20); Immature Granulocytes % (auto) 0.5 %; Lymphocytes # (auto) 1.51 K/uL (1.2-3.4); Lymphocytes % (auto) 11.2 %; Mean Corpuscular Hemoglobin 30.3 pg (25.0-34.0); Mean Corpuscular Volume 91.8 fL (80.0-100.0); Mean Platelet Volume 9.1 fL (9.4-12.4); Monocytes # (auto) 1.05 K/uL (0.11-0.59); Monocytes % (auto) 7.8 %; Neutrophils # (auto) 10.37 K/uL (1.40-6.50); Neutrophils % (auto) 77.3 %; Platelet Count 229 K/uL (130-400); RDW Standard Deviation 43.8 fL (36.4-46.3); Red Blood Count 4.52 M/uL (4.20-5.40); White Blood Count 13.43 K/ul (4.8-10.8)
[2022-08-24 01:27] LABS: Alanine Aminotransferase 20 U/L (7-52); Albumin Globulin Ratio 1.5 (0.9-2); Albumin Level 4.3 gm/dl (3.4-5.0); Alkaline Phosphatase 123 U/L (34-104); Anion Gap 7 (3-11); Aspartate Aminotransferase 21 U/L (13-39); BUN Creatinine Ratio 22.3 (10-20); Bilirubin,Total 0.7 mg/dl (0.2-1.0); Blood Urea Nitrogen 21 mg/dl (6-23); Calcium 9.2 mg/dl (8.6-10.3); Carbon Dioxide 27 mmol/L (21-32); Chloride 102 mmol/L (98-107); Est GFR (African American) 64.6 ml/min; Est GFR (Non-African American) 55.7 ml/min; Globulin 2.9 gm/dl (2.5-4.0); Glucose 103 mg/dl (70-99(Fasting)); Potassium 3.7 mmol/L (3.5-5.1); Sodium 136 mmol/L (136-145); Total Protein 7.2 gm/dl (6.0-8.3)
--- NOTE | 2022-08-24 05:01 | History & Physical Report ---
Date of Service August 24, 2022 Assessment & Plan (1) Right knee pain: Plan: Patient presents to ED with complaints of acute worsening of her right knee pain X-ray imaging of the knee does not reveal any evidence of fracture or dislocation. Patient had recent arthrocentesis and steroid injection done by orthopedics about 2 weeks ago with improvement of similar symptoms We will obtain PT OT eval Orthopedic input as patient has recent arthrocentesis with steroid injection. Patient has elevated white count but no evidence of warmth over right knee joint Lower extremity Doppler negative for DVT (2) Ambulatory dysfunction: Plan: Patient presents with right knee pain and is ambulatory dysfunction secondary to pain Obtain PT OT eval Might need placement if patient is unable to recover over the next 1 to 2 days (3) Breast carcinoma, lobular: Plan: Continue home dose of anastrozole (4) GERD (gastroesophageal reflux disease): Plan: Continue home dose of famotidine (5) Type 2 diabetes mellitus: Plan: Patient has history of type II DM but is presently not on any oral hypoglycemics and is diet controlled Last A1c 5.8 few months ago (6) HTN (hypertension): Plan: Continue home dose of lisinopril 2.5 mg daily Monitor blood pressure trend titrate meds as tolerated (7) Hyperlipidemia LDL goal <100: Plan: Continue statin therapy with rosuvastatin 40 mg daily History of Present Illness Chief Complaint: Right knee pain and difficulty ambulating Primary Care Provider: Lucian Noe MD This is a 86-year-old female with past medical history significant story of hypertension, hyperlipidemia, history of GERD, who presents to the emergency department with complaints of acute worsening of right knee pain, patient reports that she was in the picnic and was sitting for extended period of time and suddenly noticed that she was experiencing severe pain in her right knee joint and also felt a tenderness in her calf area. Patient subsequently continued to experience right knee pain and was unable to ambulate in her house and hence contact her daughter who brought the patient to the ED for further evaluation. Patient was recently seen in the ED for similar complaints about 2 weeks ago and had an arthrocentesis done by orthopedics with steroid injection and subsequent improvement in her pain symptoms. Patient was evaluated in the ED and is found to be slightly elevated white count . Patient also had a Doppler of her lower extremities to exclude DVT and that was negative as well. Patient had a imaging of the right knee that did not reveal any fracture but patient was unable to ambulate and reported that she cannot manage at home alone and her daughter was unable to care for her if she is unable to ambulate. Patient since being placed in observation for PT OT evaluation along with orthopedic input. Allergies Allergy/AdvReac Type Severity Reaction Status Date / Time nitroglycerin AdvReac Intermediate BP Verified 08/18/22 15:39 Decreases, HR Increases tramadol AdvReac Intermediate faint Verified 08/18/22 15:39 feeling, mind foggy not able to think Home Medications Medication Instructions Recorded Confirmed Type aspirin 81 mg tablet,delayed 81 mg PO QAM 12/13/17 08/24/22 History release rosuvastatin 40 mg tablet (Crestor) 40 mg PO HS 12/13/17 08/24/22 History furosemide 20 mg tablet 20 mg PO QAM 12/11/19 08/24/22 History metoclopramide HCl 10 mg tablet 5 mg PO UD 12/11/19 08/24/22 History (Reglan) acetaminophen 650 mg 650 mg PO Q12H 08/07/20 08/24/22 History tablet,extended release calcium carbonate 600 mg-vitamin 1 cap PO QAM 11/09/21 08/24/22 History D3 25 mcg (1,000 unit) capsule anastrozole 1 mg tablet (Arimidex) 1 mg PO QAM #90 tabs 03/04/22 08/24/22 Rx potassium chloride 20 mEq 20 meq PO QAM #90 tabs 03/05/22 08/24/22 Rx tablet,extended release(part/cryst) lisinopril 2.5 mg tablet 2.5 mg PO QAM 30 days #30 tabs 03/10/22 08/24/22 Rx famotidine 20 mg tablet 20 mg PO DAILY #90 tabs 04/22/22 08/24/22 Rx apixaban 5 mg tablet 5 mg PO BID #180 tabs 04/27/22 08/24/22 Rx albuterol sulfate 90 mcg/actuation 2 puff inhalation Q4H PRN 05/07/22 08/24/22 Rx aerosol inhaler (ProAir HFA) shortness of breath #8.5 grams metoprolol succinate 50 mg 50 mg PO BID #60 tabs 05/10/22 08/24/22 Rx tablet,extended release 24 hr (Toprol XL) fluticasone propionate 230 1 puff inhalation BID #12 grams 05/27/22 08/24/22 Rx mcg-salmeterol 21 mcg/actuation HFA inhaler (Advair HFA) Past Med/Surg History Medical History Acute hypoxemic respiratory failure due to COVID-19 Anemia Asthma Breast carcinoma, lobular Right. takes Arimidex daily Carotid artery stenosis CHF (congestive heart failure) Chronic obstructive pulmonary disease CKD (chronic kidney disease), stage III COVID-19 virus infection Diabetes mellitus, type 2 no medications -- diet controlled Diverticular disease Elevated vitamin B12 level Gastroparesis GERD (gastroesophageal reflux disease) HTN (hypertension) Hyperlipidemia LDL goal <100 Long-term (current) use of anticoagulants, INR goal 2.0-3.0 Metabolic encephalopathy Multiple pulmonary emboli S/P surgical procedure (~5-10 years ago) reason for warfarin daily Myocardial Infarction [address]. [address] Viera Open wound of left breast hx Osteoarthritis Productive cough Septic shock hx r/t UTI (2018) Systolic CHF, chronic Surgical History H/O vascular surgery History of cardiac cath History of cataract surgery History of colonoscopy History of coronary artery bypass graft History of removal of Port-a-Cath Hx of lumpectomy S/P cholecystectomy S/P debridement S/P lymph node biopsy Family History Father Lung cancer Brother Prostate cancer Myocardial infarction Other No family history of adverse response to anesthesia Denies family history of Colon cancer Ovarian cancer Breast cancer Social History Smoking Status: Former smoker Tobacco Type: Cigarettes Second Hand Exposure: No; Do You Dip or Chew Tobacco: No; Tobacco Cessation Education Requested by Patient: No Hx Alcohol Use: No Hx Substance Use: No Preferred Language: Amharic Communication Ability: Effective Visual Impairment: No Limitations Hearing Ability: Normal Type Mapper Required: No Beliefs That Will Affect Care: None marital status: / Current Living Situation: Alone current occupational status: retired Other Information That Helps Us Care for You: No Feels Safe at Home: Yes Safety Concerns: Feels Safe At This Time Dental Care, Regularly: Yes Physical Activity Frequency: Does not Exercise Seatbelt Use: always Assistive Devices: Walker Review of Systems Review of Systems: Constitutional-no fever or chills ENT-no blurred vision, no double vision, Respiratory- no shortness of breath noted with exertion. No wheezing Cardiac-no palpitations, no chest pain, no syncope GI-no nausea, vomiting, diarrhea, melena, hematochezia -no urinary retention, no urinary incontinence Musculoskeletal-right knee joint pain with inability to ambulate Skin-n no rashes, no pruritus Neuro-no isolated weakness, y Physical Exam Physical Exam: Head and ENT no thyroid enlargement trachea midline Cardiovascular S1-S2 are normal no S3 Lungs bilateral air entry fair no wheezing Abdomen soft nondistended positive bowel sounds no rebound tenderness Extremity shows trace edema Neurologically no focal deficits Skin shows no rash no cyanosis Right knee joint not warm to touch Results & Data Results & Data Vital Signs (Past 12 Hours) Vital Signs Temp Pulse Pulse Resp BP BP Pulse Ox 08/24/22 04:52 72 18 135/50 L 97 08/24/22 04:45 72 20 135/50 L 97 08/24/22 01:46 71 18 158/79 H 97 08/23/22 21:15 36.5 C 87 18 134/79 98 O2 Del Method 08/24/22 04:52 Room Air 08/24/22 04:45 Room Air 08/24/22 01:46 Room Air 08/23/22 21:15 Room Air Laboratory Results Short CBC 08/24/22 Range/Units 00:50 WBC 13.43 H (4.8-10.8) K/ul Hgb 13.7 (12.0-16.0) g/dl Hct 41.5 (37.0-47.0) % Plt Count 229 (130-400) K/uL BMP 08/24/22 00:50 Sodium 136 Potassium 3.7 Chloride 102 Carbon Dioxide 27 BUN 21 Creatinine 0.94 Glucose 103 H Calcium 9.2 Liver Function 08/24/22 Range/Units 00:50 Total Bilirubin 0.7 (0.2-1.0) mg/dl AST 21 (13-39) U/L ALT 20 (7-52) U/L Alkaline Phosphatase 123 H (34-104) U/L Albumin 4.3 (3.4-5.0) gm/dl Diagnostic Findings Knee X-Ray 08/23/22 21:18 XR knee RT 3V CLINICAL HISTORY: Knee trauma, no prior imaging COMPARISON: Right knee radiographs and CT of the right knee August 08, 2022. FINDINGS: Alignment of the right knee is anatomic. A moderate sized right knee joint effusion has decreased in size since prior radiograph and CT. No acute fracture is present. No osseous lesions are noted. There is severe right knee osteoarthritis, most pronounced within the patellofemoral compartment. IMPRESSION: 1. No acute fracture. 2. Moderate size right knee joint effusion, decreased in size since prior radiograph and CT. 3. Severe right knee osteoarthritis, most pronounced within the patellofemoral compartment. ACT 112: Negative or not required by law. Electronically signed by: Guzman Plata M.D. 08/24/2022 7:32 AM Venous Doppler Study 08/23/22 21:18 Exam(s): US VENOUS RIGHT LOWER EXTREMITY EXAM: US Duplex Right Lower Extremity Veins CLINICAL HISTORY: Reason for exam: calf pain. TECHNIQUE: Real-time duplex ultrasound scan of the right lower extremity veins integrating B-mode two-dimensional vascular structure, Doppler spectral analysis, color flow Doppler imaging and compression. COMPARISON: No relevant prior studies available. FINDINGS: Deep veins: Unremarkable. No DVT in the visualized common femoral, femoral, proximal deep femoral or popliteal veins. The veins demonstrate normal color flow, are normally compressible, with normal phasic flow and/or augmentation response. Superficial veins: Unremarkable. No thrombus in the visualized great saphenous vein. Soft tissues: Right popliteal fossa Carr's cyst. IMPRESSION: No acute findings in the right lower extremity veins. Electronically signed by: Joel Crabtree MD 08/23/22 22:48 PM Code Status & VTE Plan VTE Prophylaxis Plan VTE Prophylaxis will be ordered: Yes PG Care Time/CCT Total # of Minutes Spent Total Time Spent with Patient: Total time spent is greater than 50% in coordination of care (as documented) at patient's floor/unit and/or counseling patient: Coding Level of Care Code 33160 INT INP/OBS CARE 2/55MIN Diagnoses Right knee pain M25.561 Ambulatory dysfunction R26.2 Breast carcinoma, lobular C50.919 Laterality: unspecified laterality GERD (gastroesophageal reflux disease) K21.9 Esophagitis presence: esophagitis presence not specified Type 2 diabetes mellitus E11.9 HTN (hypertension) I10 Hypertension type: essential hypertension Hyperlipidemia LDL goal <100 E78.5 (3) Breast carcinoma, lobular Laterality: unspecified laterality Qualified Code(s): C50.919 - Malignant neoplasm of unspecified site of unspecified female breast (4) GERD (gastroesophageal reflux disease) Esophagitis presence: esophagitis presence not specified Qualified Code(s): K21.9 - Gastro-esophageal reflux disease without esophagitis (6) HTN (hypertension) Hypertension type: essential hypertension Qualified Code(s): I10 - Essential (primary) hypertension
[2022-08-24] MEDS ORDERED: POLYETHYLENE (MIRALAX) 17 GM PACK PO PRN (05:25)
[2022-08-24] MEDS ORDERED: ACETAMINOPHEN 325 MG TAB PO PRN (05:25)
[2022-08-24] MEDS ORDERED: ALBUTEROL HFA 8 GM INHALER INH PRN (05:25)
[2022-08-24] MEDS ORDERED: METOCLOPRAMIDE HCL 5 MG TABLET PO SCH (05:25)
[2022-08-24] MEDS ORDERED: ALUMINUM/MAGNESIUM SUSP 30 ML UDC PO PRN (05:25)
--- NOTE | 2022-08-24 07:33 | XRay Report ---
XR knee RT 3V CLINICAL HISTORY: Knee trauma, no prior imaging COMPARISON: Right knee radiographs and CT of the right knee August 08, 2022. FINDINGS: Alignment of the right knee is anatomic. A moderate sized right knee joint effusion has de creased in size since prior radiograph and CT. No acute fracture is present. No osseous lesions are n oted. There is severe right knee osteoarthritis, most pronounced within the patellofemoral compartmen t. IMPRESSION: 1. No acute fracture. 2. Moderate size right knee joint effusion, decreased in size since prior radiograph and CT. 3. Severe right knee osteoarthritis, most pronounced within the patellofemoral compartment. ACT 112: Negative or not required by law. Electronically signed by: Guzman Plata M.D. 08/24/2022 7:32 AM
[2022-08-24] MEDS: FLUTICASONE/VILANTEROL 100/25MCG 14 PUFFS/INHALER INH SCH (07:47)
[2022-08-24] MEDS: POTASSIUM CHLORIDE CRTAB 20 MEQ TABCR PO SCH (07:48)
[2022-08-24] MEDS: METOPROLOL SUCC 50MG EXT REL TAB PO SCH ×2 (07:48→20:37)
[2022-08-24] MEDS: APIXABAN 5 MG TABLET PO SCH ×2 (07:48→20:37)
[2022-08-24] MEDS: ASPIRIN 81 MG ECTAB PO SCH (07:48)
[2022-08-24] MEDS: FUROSEMIDE 20 MG TAB PO SCH (07:49)
[2022-08-24] MEDS: lisinopril 2.5 MG TAB PO SCH (07:49)
[2022-08-24] MEDS: ANASTROZOLE 1 MG TAB PO SCH (07:49)
[2022-08-24] MEDS: CALCIUM 600MG + VIT D 400 IU TAB PO SCH (07:49)
[2022-08-24] MEDS: ACETAMINOPHEN 325 MG TAB PO SCH ×2 (07:50→20:36)
[2022-08-24] MEDS: FAMOTIDINE 20 MG TAB PO SCH (08:05)
[2022-08-24] MEDS ORDERED: HEPARIN SOD 5,000 UNIT/0.5 ML VIAL SQ SCH (09:00)
--- NOTE | 2022-08-24 13:04 | Orthopedic Consultation ---
Date of Consultation August 24, 2022 Assessment & Plan (1) Right knee pain: 86-year-old white female with consult for right knee pain which has now subsided into right medial calf pain. Patient has had a previous steroid injection of her right knee during her last visit approximately 2 weeks ago with good res ults. Patient was noted to have popliteal cyst on Doppler exam. Does not appear phlebitic in nature. No erythema noted. Her pain appears to be muscular in nature. Doppler is negative for DVT. It is possible she could have had her popliteal cyst decompressed with some of the contents traveling distally down into the calf area causing her increased pain. ER visit note from this admission noted posterior knee pain but patient does not remember it being that painful. This certainly could coincide with some decompression of a popliteal cyst with immediate relief posteriorly with resultant calf pain. In speaking to nursing staff, the patient has been fairly independent today with her ambulation not using any type of assistive device. Patient also states that she has been able to get up and ambulate on the right lower extremity. At this point, continue easy wrap ice pack to the right lower extremity. Can switch to warm moist heat in the next 24 hours and switch off and on between cold and heat. We will give her a one-time dose of Toradol 15 mg IV to help with her discomfort. If patient continues to have decreasing pain and ambulating independently, she can be discharged per orthopedics standpoint. She can follow-up with Deric Jha PA-C or Dr. Georges Estevez in the office in the near future. History of Present Illness Reason for Consultation: Right medial calf discomfort Attending Physician: Bebo Howell DO History of Present Illness Patient is an 86-year-old female with past medical history of asthma, breast carcinoma, carotid artery stenosis, CHF, COPD, CKD stage III, diabetes mellitus type 2, GERD, hypertension, hyperlipidemia, history of pulmonary emboli status post surgical procedure 5 to 10 years ago, on Eliquis twice daily, osteoarthritis, who was admitted to the hospital early this morning secondary to pain in the lower extremity and inability to ambulate. Patient had been admitted earlier in the month for right knee pain and difficulty ambulating. Patient was evaluated by Dr. Russell at that time. Patient had a moderate knee effusion but was felt not to be infectious. Aspiration was performed and steroid injection was then done. Patient responded well to this and was then discharged. She states that her knee has been feeling much better and doing well. She states that the day before yesterday, she was out and about her yard pulling weeds of which she has not been doing as much of late. She then went to a family function yesterday. She had been sitting for some time and was getting ready to leave. When she stood up she had pain in her calf. She had difficulty ambulating. She was able to make it home but had difficulty ambulating around in her house. She had spoken to her daughter and eventually came into the emergency room. She was complaining of knee pain (mostly posterior stated in the ER visit notes) and lateral calf pain. She was having difficulty ambulating. Doppler ultrasound was performed and showed no signs of DVT. Repeat x-ray of the right knee showed a decreased effusion from the previous admission and other than osteoarthritis, no fractures or dislocations. Currently she is sitting up in bed eating her lunch. She appears comfortable. She states that her knee has been feeling well since having the injection. She states that most of her pain is in the lateral calf area. No other complaints at this time. Allergies Allergy/AdvReac Type Severity Reaction Status Date / Time nitroglycerin AdvReac Intermediate BP Verified 08/18/22 15:39 Decreases, HR Increases tramadol AdvReac Intermediate faint Verified 08/18/22 15:39 feeling, mind foggy not able to think Home Medications Medication Instructions Recorded Confirmed Type aspirin 81 mg tablet,delayed 81 mg PO QAM 12/13/17 08/24/22 History release rosuvastatin 40 mg tablet (Crestor) 40 mg PO HS 12/13/17 08/24/22 History furosemide 20 mg tablet 20 mg PO QAM 12/11/19 08/24/22 History metoclopramide HCl 10 mg tablet 5 mg PO UD 12/11/19 08/24/22 History (Reglan) acetaminophen 650 mg 650 mg PO Q12H 08/07/20 08/24/22 History tablet,extended release calcium carbonate 600 mg-vitamin 1 cap PO QAM 11/09/21 08/24/22 History D3 25 mcg (1,000 unit) capsule anastrozole 1 mg tablet (Arimidex) 1 mg PO QAM #90 tabs 03/04/22 08/24/22 Rx potassium chloride 20 mEq 20 meq PO QAM #90 tabs 03/05/22 08/24/22 Rx tablet,extended release(part/cryst) lisinopril 2.5 mg tablet 2.5 mg PO QAM 30 days #30 tabs 03/10/22 08/24/22 Rx famotidine 20 mg tablet 20 mg PO DAILY #90 tabs 04/22/22 08/24/22 Rx apixaban 5 mg tablet 5 mg PO BID #180 tabs 04/27/22 08/24/22 Rx albuterol sulfate 90 mcg/actuation 2 puff inhalation Q4H PRN 05/07/22 08/24/22 Rx aerosol inhaler (ProAir HFA) shortness of breath #8.5 grams metoprolol succinate 50 mg 50 mg PO BID #60 tabs 05/10/22 08/24/22 Rx tablet,extended release 24 hr (Toprol XL) fluticasone propionate 230 1 puff inhalation BID #12 grams 05/27/22 08/24/22 Rx mcg-salmeterol 21 mcg/actuation HFA inhaler (Advair HFA) Patient History Medical History Acute hypoxemic respiratory failure due to COVID-19 Anemia Asthma Breast carcinoma, lobular Right. takes Arimidex daily Carotid artery stenosis CHF (congestive heart failure) Chronic obstructive pulmonary disease CKD (chronic kidney disease), stage III COVID-19 virus infection Diabetes mellitus, type 2 no medications -- diet controlled Diverticular disease Elevated vitamin B12 level Gastroparesis GERD (gastroesophageal reflux disease) HTN (hypertension) Hyperlipidemia LDL goal <100 Long-term (current) use of anticoagulants, INR goal 2.0-3.0 Metabolic encephalopathy Multiple pulmonary emboli S/P surgical procedure (~5-10 years ago) reason for warfarin daily Myocardial Infarction [address]. [address] Viera Open wound of left breast hx Osteoarthritis Productive cough Septic shock hx r/t UTI (2017) Systolic CHF, chronic Surgical History H/O vascular surgery port-a-cath insertion History of cardiac cath with stent following CABG with one stent. History of cataract surgery bilateral History of colonoscopy History of coronary artery bypass graft x2 vessels (1994) History of removal of Port-a-Cath Hx of lumpectomy right breast with lymph node removal S/P cholecystectomy Laprascopic S/P debridement right breast wound debridement + wound vac + skin graft from a cadaver. (multiple) S/P lymph node biopsy right breast & axillary Family History Father Lung cancer Brother Prostate cancer Myocardial infarction Other No family history of adverse response to anesthesia Denies family history of Colon cancer Ovarian cancer Breast cancer Social History Smoking Status: Former smoker Tobacco Type: Cigarettes Second Hand Exposure: No; Do You Dip or Chew Tobacco: No; Tobacco Cessation Education Requested by Patient: No Hx Alcohol Use: No Hx Substance Use: No Preferred Language: Citizen Of [place] Communication Ability: Effective Visual Impairment: No Limitations Hearing Ability: Normal 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 She is alert and oriented x3. No acute distress. Pleasant and cooperative. On examination of her right lower extremity, he does not have any overt swelling or edema noted compared to the left. She has no pain on palpation of her knee at this time and I am able to take her through gentle range of motion without difficulty. She points to where she is having most of her pain which is the medial calf. On palpation, I can appreciate a little bit of subcutaneous edema and the patient complains of some needlelike pains when palpating the area. And there is no gross swelling noted at this time. There is no swelling of her ankle or foot. Homans exam does not elicit a painful response. She states she has some very light discomfort in the medial calf at that point. She states she is able to weight-bear on the extremity today without a walker but continues to have some pain in the area. There is no gross motor or sensory loss seen at this time. Distal pulses are equal bilaterally. There is no erythema or ecchymosis noted. Results & Data Vital Signs (Past 12 Hours) Vital Signs Temp Pulse Pulse Resp BP BP Pulse Ox 08/24/22 07:16 36.8 C 73 16 115/63 100 08/24/22 05:10 36.5 C 69 14 123/76 99 08/24/22 04:52 72 18 135/50 L 97 08/24/22 04:45 72 20 135/50 L 97 08/24/22 01:46 71 18 158/79 H 97 O2 Del Method 08/24/22 07:16 Room Air 08/24/22 05:10 Room Air 08/24/22 04:52 Room Air 08/24/22 04:45 Room Air 08/24/22 01:46 Room Air Laboratory Results Laboratory Results WBC 13.43 K/ul (4.8-10.8) H 08/24/22 00:50 RBC 4.52 M/uL (4.20-5.40) 08/24/22 00:50 Hgb 13.7 g/dl (12.0-16.0) 08/24/22 00:50 Hct 41.5 % (37.0-47.0) 08/24/22 00:50 MCV 91.8 fL (80.0-100.0) 08/24/22 00:50 MCH 30.3 pg (25.0-34.0) 08/24/22 00:50 MCHC 33.0 g/dL (32.0-36.0) 08/24/22 00:50 RDW Std Deviation 43.8 fL (36.4-46.3) 08/24/22 00:50 RDW Coeff of Cathy 13.0 % (11.5-14.5) 08/24/22 00:50 Plt Count 229 K/uL (130-400) 08/24/22 00:50 MPV 9.1 fL (9.4-12.4) L 08/24/22 00:50 Immature Gran % (Auto) 0.5 % 08/24/22 00:50 Neut % (Auto) 77.3 % 08/24/22 00:50 Lymph % (Auto) 11.2 % 08/24/22 00:50 [place] % (Auto) 7.8 % 08/24/22 00:50 Eos % (Auto) 2.8 % 08/24/22 00:50 Baso % (Auto) 0.4 % 08/24/22 00:50 Neut # (Auto) 10.37 K/uL (1.40-6.50) H 08/24/22 00:50 Lymph # (Auto) 1.51 K/uL (1.2-3.4) 08/24/22 00:50 [place] # (Auto) 1.05 K/uL (0.11-0.59) H 08/24/22 00:50 Eos # (Auto) 0.38 K/uL (0-0.50) 08/24/22 00:50 Baso # (Auto) 0.05 K/uL (0-0.2) 08/24/22 00:50 Immature Gran # (Auto) 0.07 K/uL (0.01-0.20) 08/24/22 00:50 Sodium 136 mmol/L (136-145) 08/24/22 00:50 Potassium 3.7 mmol/L (3.5-5.1) 08/24/22 00:50 Chloride 102 mmol/L (98-107) 08/24/22 00:50 Carbon Dioxide 27 mmol/L (21-32) 08/24/22 00:50 Anion Gap 7 (3-11) 08/24/22 00:50 BUN 21 mg/dl (6-23) 08/24/22 00:50 Creatinine 0.94 mg/dl (0.6-1.2) 08/24/22 00:50 Est Cr Clr Drug Dosing Not Reportable 08/24/22 00:50 Est GFR ( Amer) 64.6 ml/min 08/24/22 00:50 Est GFR (Non-Af Amer) 55.7 ml/min 08/24/22 00:50 BUN/Creatinine Ratio 22.3 (10-20) H 08/24/22 00:50 Glucose 103 mg/dl (70-99(Fasting)) H 08/24/22 00:50 Calcium 9.2 mg/dl (8.6-10.3) 08/24/22 00:50 Total Bilirubin 0.7 mg/dl (0.2-1.0) 08/24/22 00:50 AST 21 U/L (13-39) 08/24/22 00:50 ALT 20 U/L (7-52) 08/24/22 00:50 Alkaline Phosphatase 123 U/L (34-104) H 08/24/22 00:50 Total Protein 7.2 gm/dl (6.0-8.3) 08/24/22 00:50 Albumin 4.3 gm/dl (3.4-5.0) 08/24/22 00:50 Globulin 2.9 gm/dl (2.5-4.0) 08/24/22 00:50 Albumin/Globulin Ratio 1.5 (0.9-2) 08/24/22 00:50 SARS-CoV-2, RNA, NAAT NEGATIVE (NEGATIVE) 08/24/22 01:00 Impressions Knee X-Ray 08/23/22 21:18 XR knee RT 3V CLINICAL HISTORY: Knee trauma, no prior imaging COMPARISON: Right knee radiographs and CT of the right knee August 08, 2022. FINDINGS: Alignment of the right knee is anatomic. A moderate sized right knee joint effusion has decreased in size since prior radiograph and CT. No acute fracture is present. No osseous lesions are noted. There is severe right knee osteoarthritis, most pronounced within the patellofemoral compartment. IMPRESSION: 1. No acute fracture. 2. Moderate size right knee joint effusion, decreased in size since prior radiograph and CT. 3. Severe right knee osteoarthritis, most pronounced within the patellofemoral compartment. ACT 112: Negative or not required by law. Electronically signed by: Guzman Plata M.D. 08/24/2022 7:32 AM Venous Doppler Study 08/23/22 21:18 Exam(s): US VENOUS RIGHT LOWER EXTREMITY EXAM: US Duplex Right Lower Extremity Veins CLINICAL HISTORY: Reason for exam: calf pain. TECHNIQUE: Real-time duplex ultrasound scan of the right lower extremity veins integrating B-mode two-dimensional vascular structure, Doppler spectral analysis, color flow Doppler imaging and compression. COMPARISON: No relevant prior studies available. FINDINGS: Deep veins: Unremarkable. No DVT in the visualized common femoral, femoral, proximal deep femoral or popliteal veins. The veins demonstrate normal color flow, are normally compressible, with normal phasic flow and/or augmentation response. Superficial veins: Unremarkable. No thrombus in the visualized great saphenous vein. Soft tissues: Right popliteal fossa Carr's cyst. IMPRESSION: No acute findings in the right lower extremity veins. Electronically signed by: Joel Crabtree MD 08/23/22 22:48 PM
[2022-08-24] MEDS ORDERED: KETOROLAC TROMETHAMINE 15 MG/ML VIAL IV ONE (13:39)
[2022-08-24] MEDS ORDERED: ROSUVASTATIN CALCIUM 20 MG TAB PO SCH (21:00)
--- NOTE | 2022-08-25 07:51 | Orthopedic Progress Note ---
Date of Service August 25, 2022 Assessment & Plan (1) Right knee pain: Plan: Overall she feels better today. Continue Toradol as needed. If swelling increased, consider holding Eliquis and possibly US calf for fluid collections. Does not appear to have increased. Continue to increase activity as tolerated. Admission and Anticipated Discharge Date Admission Date: August 24, 2022 Subjective Pt sitting in chair at beside. States that her calf is feeling better and thinks the Toradol did help. No other complaints. Physical Exam Physical Exam: Continues to have some edema over the lateral right calf with mild tenderness. Swelling does not extend into the ankle. Anterior compartments are soft, NT. NV intact. No erythema noted. Results & Data Vital Signs (Past 12 Hours) Vital Signs Temp Pulse Resp BP Pulse Ox O2 Del Method 08/25/22 07:07 36.5 C 86 16 131/81 97 Room Air 08/24/22 21:38 16 08/24/22 21:36 36.5 C 08/24/22 20:35 71 120/57 L 98 Room Air
[2022-08-25] MEDS: METOPROLOL SUCC 50MG EXT REL TAB PO SCH (08:20)
[2022-08-25] MEDS: FLUTICASONE/VILANTEROL 100/25MCG 14 PUFFS/INHALER INH SCH (08:20)
[2022-08-25] MEDS: CALCIUM 600MG + VIT D 400 IU TAB PO SCH (08:21)
[2022-08-25] MEDS: ASPIRIN 81 MG ECTAB PO SCH (08:21)
[2022-08-25] MEDS: FUROSEMIDE 20 MG TAB PO SCH (08:21)
[2022-08-25] MEDS: ACETAMINOPHEN 325 MG TAB PO SCH (08:21)
[2022-08-25] MEDS: ANASTROZOLE 1 MG TAB PO SCH (08:22)
[2022-08-25] MEDS: POTASSIUM CHLORIDE CRTAB 20 MEQ TABCR PO SCH (08:22)
[2022-08-25] MEDS: lisinopril 2.5 MG TAB PO SCH (08:22)
[2022-08-25] MEDS: APIXABAN 5 MG TABLET PO SCH (08:22)
[2022-08-25] MEDS: FAMOTIDINE 20 MG TAB PO SCH (09:02)
--- NOTE | 2022-08-25 11:33 | Hospitalist Progress Note ---
Date of Service August 24, 2022 Assessment & Plan (1) Right knee pain: Plan: Patient presents to ED with complaints of acute worsening of her right knee pain X-ray imaging of the knee does not reveal any evidence of fracture or dislocation. Patient had recent arthrocentesis and steroid injection done by orthopedics about 2 weeks ago with improvement of similar symptoms We will obtain PT OT eval Orthopedic input as patient has recent arthrocentesis with steroid injection. Patient has elevated white count but no evidence of warmth over right knee joint Lower extremity Doppler negative for DVT (2) Ambulatory dysfunction: Plan: Patient presents with right knee pain and is ambulatory dysfunction secondary to pain Obtain PT OT eval Might need placement if patient is unable to recover over the next 1 to 2 days (3) Breast carcinoma, lobular: Plan: Continue home dose of anastrozole (4) GERD (gastroesophageal reflux disease): Plan: Continue home dose of famotidine (5) Type 2 diabetes mellitus: Plan: Patient has history of type II DM but is presently not on any oral hypoglycemics and is diet controlled Last A1c 5.8 few months ago (6) HTN (hypertension): Plan: Continue home dose of lisinopril 2.5 mg daily Monitor blood pressure trend titrate meds as tolerated (7) Hyperlipidemia LDL goal <100: Plan: Continue statin therapy with rosuvastatin 40 mg daily Admission and Anticipated Discharge Date Admission Date: August 24, 2022 Subjective Pt sitting in chair at beside. States that her calf is feeling better and thinks the Toradol did help. No other complaints. Physical Exam Constitutional: WD/WN, vitals as above Eyes: PERRL, conjunctivae normal, anicteric sclerae Respiratory: normal respiratory effort, lungs clear to auscultation Cardiovascular: RRR, no murmur, no edema Gastrointestinal (Abdomen): normal bowel sounds, soft, nontender, no hepatosplenomegaly Musculoskeletal: no cyanosis or clubbing, extremities motor strength 5/5 Skin: no rashes, warm and dry Neurologic: patellar DTR's 2+ bilat, sensation intact Psychiatric: A+Ox3, euthymic affect Results & Data Results & Data Vital Signs (Past 12 Hours) Vital Signs Temp Pulse Resp BP Pulse Ox O2 Del Method 08/25/22 07:07 36.5 C 86 16 131/81 97 Room Air PG Care Time/CCT Total # of Minutes Spent Total Time Spent with Patient: Total time spent is greater than 50% in coordination of care (as documented) at patient's floor/unit and/or counseling patient: Coding Level of Care Code 88330 SUB INP/OBS CARE 2/35MIN Diagnoses Right knee pain M25.561 Ambulatory dysfunction R26.2 Breast carcinoma, lobular C50.919 Laterality: unspecified laterality GERD (gastroesophageal reflux disease) K21.9 Esophagitis presence: esophagitis presence not specified Type 2 diabetes mellitus E11.9 HTN (hypertension) I10 Hypertension type: essential hypertension Hyperlipidemia LDL goal <100 E78.5 Time Spent (min) 42 (3) Breast carcinoma, lobular Laterality: unspecified laterality Qualified Code(s): C50.919 - Malignant neoplasm of unspecified site of unspecified female breast (4) GERD (gastroesophageal reflux disease) Esophagitis presence: esophagitis presence not specified Qualified Code(s): K21.9 - Gastro-esophageal reflux disease without esophagitis (6) HTN (hypertension) Hypertension type: essential hypertension Qualified Code(s): I10 - Essential (primary) hypertension
[2022-08-25 15:04] VITALS: BP 111/73; PULSE 69; O2SAT 99
[2022-08-25 15:07] VITALS: TEMP 97.5
--- NOTE | 2022-08-25 17:30 | Discharge Summary ---
Discharge Summary Date of Service August 25, 2022 Admission HPI Per Admitting Provider This is a 86-year-old female with past medical history significant story of hypertension, hyperlipidemia, history of GERD, who presents to the emergency department with complaints of acute worsening of right knee pain, patient reports that she was in the picnic and was sitting for extended period of time and suddenly noticed that she was experiencing severe pain in her right knee joint and also felt a tenderness in her calf area. Patient subsequently continued to experience right knee pain and was unable to ambulate in her house and hence contact her daughter who brought the patient to the ED for further evaluation. Patient was recently seen in the ED for similar complaints about 2 weeks ago and had an arthrocentesis done by orthopedics with steroid injection and subsequent improvement in her pain symptoms. Patient was evaluated in the ED and is found to be slightly elevated white count . Patient also had a Doppler of her lower extremities to exclude DVT and that was negative as well. Patient had a imaging of the right knee that did not reveal any fracture but patient was unable to ambulate and reported that she cannot manage at home alone and her daughter was unable to care for her if she is unable to ambulate. Patient since being placed in observation for PT OT evaluation along with orthopedic input. Principal Dx & Hospital Course #1 = Principal Diagnosis Updated Medication List Medication Instructions Recorded Confirmed Type aspirin 81 mg tablet,delayed 81 mg PO QAM 12/13/17 08/24/22 History release rosuvastatin 40 mg tablet (Crestor) 40 mg PO HS 12/13/17 08/24/22 History furosemide 20 mg tablet 20 mg PO QAM 12/11/19 08/24/22 History metoclopramide HCl 10 mg tablet 5 mg PO UD 12/11/19 08/24/22 History (Reglan) acetaminophen 650 mg 650 mg PO Q12H 08/07/20 08/24/22 History tablet,extended release calcium carbonate 600 mg-vitamin 1 cap PO QAM 11/09/21 08/24/22 History D3 25 mcg (1,000 unit) capsule anastrozole 1 mg tablet (Arimidex) 1 mg PO QAM #90 tabs 03/04/22 08/24/22 Rx potassium chloride 20 mEq 20 meq PO QAM #90 tabs 03/05/22 08/24/22 Rx tablet,extended release(part/cryst) lisinopril 2.5 mg tablet 2.5 mg PO QAM 30 days #30 tabs 03/10/22 08/24/22 Rx famotidine 20 mg tablet 20 mg PO DAILY #90 tabs 04/22/22 08/24/22 Rx apixaban 5 mg tablet 5 mg PO BID #180 tabs 04/27/22 08/24/22 Rx albuterol sulfate 90 mcg/actuation 2 puff inhalation Q4H PRN 05/07/22 08/24/22 Rx aerosol inhaler (ProAir HFA) shortness of breath #8.5 grams metoprolol succinate 50 mg 50 mg PO BID #60 tabs 05/10/22 08/24/22 Rx tablet,extended release 24 hr (Toprol XL) fluticasone propionate 230 1 puff inhalation BID #12 grams 05/27/22 08/24/22 Rx mcg-salmeterol 21 mcg/actuation HFA inhaler (Advair HFA) Hospital Stay Data Consultations 08/24/22 00:28 ED Decision to Admit Stat 08/24/22 09:23 Consult Orthopedic Surgery Routine Diagnostic Imagining Performed 08/23/22 21:18 US venous doppler LE RT Stat Pending Results Patient Have Any Pending Studies at Discharge: No Discharge Instructions Given to Patient (Per Discharging Provider) May use analgesic lotion on leg(s) Home Health Attestation I certify that this patient is under my care and that I, or a physicians assistant to the dean working with me, had a face to-face encounter that meets the home health [id number] encounter requirements with this patient. The encounter with the patient was in whole, or in part, for the following medical condition, which is the primary reason for home health care (list medical condition): Knee pain, ambulatory dysfunction I certify that, based on my findings, the following services are medically n ecessary home health services: My clinical findings support the need for the above services because: PT Assessment for Endurance / Balance / Strength PT Eval for Safety and Mobility PT Eval for Safety, Gait Training, Assistive Devices PT Gait and Balance Training, Strengthening and Safety Safety Further, I certify that my clinical findings support that this patient is homebound (i.e. absences from home require considerable and taxing effort and are for medical reasons or sikhism services or infrequently or of short duration when for other reasons) because: Supportive Aid - Walker Certification for Home Health Services: Based on the above findings, I certify that this patient is confined to the home and needs intermittent jail care, physical therapy and/or speech therapy or continues to need occupational therapy. The patient is under my care, and I have initiated the establishment of the plan of care. This patient will be followed by a physician who will periodically review the plan of care. Total Time Total Time Spent Total Time Spent (In Minutes): 52 Coding Level of Care Code 14501 INP/OBS DISCH >30 MIN Diagnoses
--- NOTE | 2022-08-25 17:30 | Discharge Summary ---
Discharge Summary Date of Service August 25, 2022 Notes For Next Care Provider Medication Changes From Visit none Admission HPI Per Admitting Provider This is a 86-year-old female with past medical history significant story of hypertension, hyperlipidemia, history of GERD, who presents to the emergency department with complaints of acute worsening of right knee pain, patient reports that she was in the picnic and was sitting for extended period of time and suddenly noticed that she was experiencing severe pain in her right knee joint and also felt a tenderness in her calf area. Patient subsequently continued to experience right knee pain and was unable to ambulate in her house and hence contact her daughter who brought the patient to the ED for further evaluation. Patient was recently seen in the ED for similar complaints about 2 weeks ago and had an arthrocentesis done by orthopedics with steroid injection and subsequent improvement in her pain symptoms. Patient was evaluated in the ED and is found to be slightly elevated white count . Patient also had a Doppler of her lower extremities to exclude DVT and that was negative as well. Patient had a imaging of the right knee that did not reveal any fracture but patient was unable to ambulate and reported that she cannot manage at home alone and her daughter was unable to care for her if she is unable to ambulate. Patient since being placed in observation for PT OT evaluation along with orthopedic input. Principal Dx & Hospital Course #1 = Principal Diagnosis (1) Right knee pain: Patient presents to ED with complaints of acute worsening of her right knee pain X-ray imaging of the knee does not reveal any evidence of fracture or dislocation. Patient had recent arthrocentesis and steroid injection done by orthopedics about 2 weeks ago with improvement of similar symptoms We will obtain PT OT eval Orthopedic input as patient has recent arthrocentesis with steroid injection. Patient has elevated white count but no evidence of warmth over right knee joint Lower extremity Doppler negative for DVT (2) Ambulatory dysfunction: Patient presents with right knee pain and is ambulatory dysfunction secondary to pain Obtain PT OT eval Might need placement if patient is unable to recover over the next 1 to 2 days (3) Breast carcinoma, lobular: Continue home dose of anastrozole (4) GERD (gastroesophageal reflux disease): Continue home dose of famotidine (5) Type 2 diabetes mellitus: Patient has history of type II DM but is presently not on any oral hypoglycemics and is diet controlled Last A1c 5.8 few months ago (6) HTN (hypertension): Continue home dose of lisinopril 2.5 mg daily Monitor blood pressure trend titrate meds as tolerated (7) Hyperlipidemia LDL goal <100: Continue statin therapy with rosuvastatin 40 mg daily (8) Carr cyst: (9) Osteoarthritis of right knee: Discharge Exam Constitutional WD/WN, vitals as above Eyes PERRL, conjunctivae normal, anicteric sclerae Respiratory normal respiratory effort, lungs clear to auscultation Cardiovascular RRR, no murmur, no edema Gastrointestinal (Abdomen) normal bowel sounds, soft, nontender, no hepatosplenomegaly Musculoskeletal no cyanosis or clubbing, extremities motor strength 5/5 Skin no rashes, warm and dry Neurologic patellar DTR's 2+ bilat, sensation intact Psychiatric A+Ox3, euthymic affect Updated Medication List Medication Instructions Recorded Confirmed Type aspirin 81 mg tablet,delayed 81 mg PO QAM 12/13/17 08/24/22 History release rosuvastatin 40 mg tablet (Crestor) 40 mg PO HS 12/13/17 08/24/22 History furosemide 20 mg tablet 20 mg PO QAM 12/11/19 08/24/22 History metoclopramide HCl 10 mg tablet 5 mg PO UD 12/11/19 08/24/22 History (Reglan) acetaminophen 650 mg 650 mg PO Q12H 08/07/20 08/24/22 History tablet,extended release calcium carbonate 600 mg-vitamin 1 cap PO QAM 11/09/21 08/24/22 History D3 25 mcg (1,000 unit) capsule anastrozole 1 mg tablet (Arimidex) 1 mg PO QAM #90 tabs 03/04/22 08/24/22 Rx potassium chloride 20 mEq 20 meq PO QAM #90 tabs 03/05/22 08/24/22 Rx tablet,extended release(part/cryst) lisinopril 2.5 mg tablet 2.5 mg PO QAM 30 days #30 tabs 03/10/22 08/24/22 Rx famotidine 20 mg tablet 20 mg PO DAILY #90 tabs 04/22/22 08/24/22 Rx apixaban 5 mg tablet 5 mg PO BID #180 tabs 04/27/22 08/24/22 Rx albuterol sulfate 90 mcg/actuation 2 puff inhalation Q4H PRN 05/07/22 08/24/22 Rx aerosol inhaler (ProAir HFA) shortness of breath #8.5 grams metoprolol succinate 50 mg 50 mg PO BID #60 tabs 05/10/22 08/24/22 Rx tablet,extended release 24 hr (Toprol XL) fluticasone propionate 230 1 puff inhalation BID #12 grams 05/27/22 08/24/22 Rx mcg-salmeterol 21 mcg/actuation HFA inhaler (Advair HFA) Hospital Stay Data Consultations 08/24/22 00:28 ED Decision to Admit Stat 08/24/22 09:23 Consult Orthopedic Surgery Routine Diagnostic Imagining Performed 08/23/22 21:18 US venous doppler LE RT Stat Pending Results Patient Have Any Pending Studies at Discharge: No Discharge Instructions Given to Patient (Per Discharging Provider) May use analgesic lotion on leg(s) Home Health Attestation I certify that this patient is under my care and that I, or a physicians assistant county attorney working with me, had a face to-face encounter that meets the home health [id number] encounter requirements with this patient. The encounter with the patient was in whole, or in part, for the following medical condition, which is the primary reason for home health care (list medical condition): Knee pain, ambulatory dysfunction I certify that, based on my findings, the following services are medically necessary home health services: My clinical findings support the need for the above services because: PT Assessment for Endurance / Balance / Strength PT Eval for Safety and Mobility PT Eval for Safety, Gait Training, Assistive Devices PT Gait and Balance Training, Strengthening and Safety Safety Further, I certify that my clinical findings support that this patient is homebound (i.e. absences from home require considerable and taxing effort and are for medical reasons or hindu services or infrequently or of short duration when for other reasons) because: Supportive Aid - Walker Certification for Home Health Services: Based on the above findings, I certify that this patient is confined to the home and needs intermittent chcf care, physical therapy and/or speech therapy or continues to need occupational therapy. The patient is under my care, and I have initiated the establishment of the plan of care. This patient will be followed by a physician who will periodically review the plan of care. Total Time Total Time Spent Total Time Spent (In Minutes): 52 Coding Level of Care Code 54650 INP/OBS DISCH >30 MIN Diagnoses Right knee pain M25.561 Ambulatory dysfunction R26.2 Breast carcinoma, lobular C50.919 Laterality: unspecified laterality GERD (gastroesophageal reflux disease) K21.9 Esophagitis presence: esophagitis presence not specified Type 2 diabetes mellitus E11.9 HTN (hypertension) I10 Hypertension type: essential hypertension Hyperlipidemia LDL goal <100 E78.5 Carr cyst M71.20 Osteoarthritis of right knee M17.11 Time Spent (min) 42
== END 2022-08-25 18:52 | disposition home health service (06) ==
LOC: 3N 21:11 → ED 21:11 → SUATTDRO 08-24 04:15 → 3N 08-24 04:45

== ENCOUNTER 2022-08-27 12:37 | Inpatient (IN) ==
[2022-08-27] MEDS ORDERED: MoRPHine SULFATE 2 MG/ML CARP IV STA ×2 (13:26→15:10)
--- NOTE | 2022-08-27 13:46 | Emergency Department Note ---
Impression & Plan Traumatic ecchymosis of right lower leg, Ambulatory dysfunction, Acute pain of left knee ED Provider Note INFORMANT: Patient ED PROVIDER(S): Jim Garcia DO CHIEF COMPLAINT: Right leg pain PLAN: Disposition: Admission Outpatient prescription management: Discussion with: I spoke with the hospitalist, who will see the patient for admission/observation and further evaluation and consultation. MEDICAL DECISION MAKING: This is a 86-year-old female who presents to the ED with a chief complaint of right leg pain. The patient was admitted to the hospital a few days ago and seen by medicine service as well as orthopedics. 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 The patient had an injection of steroids in the knee during her admission. She transiently felt better but over the past couple of days she has been gotten significantly worse. She has developed a significant amount of ecchymosis in the leg and increased pain. The family states that she is unable to ambulate due to her pain. They are unwilling to take her home and states that stronger pain medication cause confusion. I do not feel she is safe to be at home. She lives alone. The patient has no additional complaints. Her last dose of Eliquis was this morning. The patient does have a significant amount of ecchymosis to the right lower extremity. She has ecchymosis in the posterior popliteal region. There does appear to be a small right knee effusion as well. She has distal perfusion with good dorsalis pedis pulses and warm feet and capillary refill. There is some tenderness to the lower extremity secondary to edema from her ecchymosis. After evaluation, I did review the patient's recent admission. She has had an ultrasound within the past 4 days that did not show DVT. Her blood work was unremarkable at that time. She also had some x-rays that did not show any concerning abnormalities. The patient will be seen by the hospitalist for further inpatient evaluation and care. I did speak with both the orthopedist and the hospitalist. The patient's orthopedic service did not feel that any additional treatment would be needed from their standpoint at this time. Pain management and physical therapy would be the treatment of choice. The patient's hemoglobin is 11.9. Chemistry panel did not show any concerning electrolyte abnormality or kidney dysfunction Triage Nursing notes reviewed. Vital Signs: reviewed Prior /Outside records reviewed: none Differential diagnosis: Differential includes ecchymosis, Carr's cyst, arthritis, edema/swelling, other Diagnostics, as interpreted by me: 12 lead ECG: none Cardiac Monitoring ordered: none Medical decision rules: none Imaging studies: none Procedures: none. Critical care: none. HPI: See MDM above. PAST MEDICAL HISTORY: See Below PAST SURGICAL HISTORY: See Below SOCIAL HISTORY: See Below HOME MEDICATIONS:See Below ALLERGIES: See Below VITALS: See Below PHYSICAL EXAMINATION: See MDM for positive findings otherwise unremarkable. CONSTITUTIONAL/VITAL SIGNS: Reviewed GENERAL:done as appropriate INTEGUMENTARY: done as appropriate HEAD: done as appropriate EYES: done as appropriate RESPIRATORY: done as appropriate CARDIOVASCULAR:done as appropriate GI/ABDOMEN:done as appropriate EXTREMITIES: done as appropriate NEUROLOGICAL: done as appropriate PSYCHIATRIC:done as appropriate MUSCULOSKELETAL:done as appropriate TRIAGE NURSING DOCUMENTATION REVIEWED. Past Med/Surg History Medical History Acute hypoxemic respiratory failure due to COVID-19 Anemia Asthma Breast carcinoma, lobular Right. takes Arimidex daily Carotid artery stenosis CHF (congestive heart failure) Chronic obstructive pulmonary disease CKD (chronic kidney disease), stage III COVID-19 virus infection Diabetes mellitus, type 2 no medications -- diet controlled Diverticular disease Elevated vitamin B12 level Gastroparesis GERD (gastroesophageal reflux disease) HTN (hypertension) Hyperlipidemia LDL goal <100 Long-term (current) use of anticoagulants, INR goal 2.0-3.0 Metabolic encephalopathy Multiple pulmonary emboli S/P surgical procedure (~5-10 years ago) reason for warfarin daily Myocardial Infarction [address]. [address] Viera Open wound of left breast hx Osteoarthritis Productive cough Septic shock hx r/t UTI (2017) Systolic CHF, chronic Surgical History H/O vascular surgery port-a-cath insertion History of cardiac cath with stent following CABG with one stent. History of cataract surgery bilateral History of colonoscopy History of coronary artery bypass graft x2 vessels (1994) History of removal of Port-a-Cath Hx of lumpectomy right breast with lymph node removal S/P cholecystectomy Laprascopic S/P debridement right breast wound debridement + wound vac + skin graft from a cadaver. (multiple) S/P lymph node biopsy right breast & axillary Family History Father Lung cancer Brother Prostate cancer Myocardial infarction Other No family history of adverse response to anesthesia Denies family history of Colon cancer Ovarian cancer Breast cancer Social History Smoking Status: Never smoker Tobacco Type: Cigarettes Second Hand Exposure: No; Do You Dip or Chew Tobacco: No; Hx Alcohol Use: No Hx Substance Use: No Preferred Language: Bahamian Communication Ability: Effective Visual Impairment: No Limitations Hearing Ability: Normal Director Of Litigation Required: No Beliefs That Will Affect Care: None marital status: / Current Living Situation: Alone current occupational status: retired Feels Safe at Home: Yes Dental Care, Regularly: Yes Physical Activity Frequency: Does not Exercise Seatbelt Use: always Assistive Devices: Cane and Walker Allergies Allergies Allergy/AdvReac Type Severity Reaction Status Date / Time nitroglycerin AdvReac Intermediate BP Verified 08/26/22 14:56 Decreases, HR Increases tramadol AdvReac Intermediate faint Verified 08/26/22 14:56 feeling, mind foggy not able to think Home Meds Home Medications Medication Instructions Recorded Confirmed aspirin 81 mg tablet,delayed 81 mg PO QAM 12/13/17 08/26/22 release rosuvastatin 40 mg tablet (Crestor) 40 mg PO HS 12/13/17 08/26/22 furosemide 20 mg tablet 20 mg PO QAM 12/11/19 08/26/22 metoclopramide HCl 10 mg tablet 5 mg PO UD 12/11/19 08/26/22 (Reglan) acetaminophen 650 mg 650 mg PO Q12H 08/07/20 08/26/22 tablet,extended release calcium carbonate 600 mg-vitamin 1 cap PO QAM 11/09/21 08/26/22 D3 25 mcg (1,000 unit) capsule Previous Rx's Medication Instructions Recorded anastrozole 1 mg tablet (Arimidex) 1 mg PO QAM #90 tabs 03/04/22 potassium chloride 20 mEq 20 meq PO QAM #90 tabs 03/05/22 tablet,extended release(part/cryst) lisinopril 2.5 mg tablet 2.5 mg PO QAM 30 days #30 tabs 03/10/22 famotidine 20 mg tablet 20 mg PO DAILY #90 tabs 04/22/22 apixaban 5 mg tablet 5 mg PO BID #180 tabs 04/27/22 albuterol sulfate 90 mcg/actuation 2 puff inhalation Q4H PRN 05/07/22 aerosol inhaler (ProAir HFA) shortness of breath #8.5 grams metoprolol succinate 50 mg 50 mg PO BID #60 tabs 05/10/22 tablet,extended release 24 hr (Toprol XL) fluticasone propionate 230 1 puff inhalation BID #12 grams 05/27/22 mcg-salmeterol 21 mcg/actuation HFA inhaler (Advair HFA) tramadol 50 mg tablet 50 mg PO BID PRN pain #10 tabs 08/26/22 Results & Data (ED) Vital Signs Vital Signs - 24 hr 08/27/22 12:43 Temperature 36.6 C Temperature Source Oral Pulse Rate 74 Respiratory Rate 16 Blood Pressure 116/73 Blood Pressure Mean 87 Pulse Oximetry 99 Sepsis Recent Fever Within 48 Hours No Sepsis New/Unexplained Change in Mental Status N/A Sepsis Action Taken by Nursing No Action Required Laboratory Data 08/27/22 14:04 08/27/22 14:04 Lab Results 08/27/22 Range/Units 13:55 POC Hgb 11.9 L (12.0-16.0) g/dl POC Hct 35 L (37-47) % POC Sodium 134 L (135-144) mmol/L POC Potassium 4.0 (3.3-5.0) mmol/L POC Chloride 104 (101-112) mmol/L POC Total CO2 21 L (24-31) mmol/L POC Anion Gap 14.0 L (16-25) mmol/L POC BUN 20 H (7-18) mg/dl POC Creatinine 0.8 (0.6-1.3) mg/dl POC Glucose (other) 100 H (70-99) mg/dl POC Ioniz Calcium Humaira 0.99 L (1.12-1.32) mmol/l Administered Medications Discontinued Medications Morphine Sulfate (Morphine Sulfate 2 Mg/Ml Carp) 2 mg IV NOW STA Stop: 08/27/22 13:27 Last Admin: 08/27/22 13:45 Dose: 2 mg Documented By: NEETA Discharge Plan Visit Data Chief Complaint: Knee Injury/Pain Stated Complaint: R KNEE SWELLING/PAIN ED Provider: Jim Garcia Discharge Problem: Traumatic ecchymosis of right lower leg, Ambulatory dysfunction, Acute pain of left knee Patient Disposition: Being Evaluated by Hospitalist Forms Stand Alone Forms: My [facility], Virtual Emergency Department, Important Visit Information Prescriptions Prescriptions: No Action aspirin 81 mg tablet,delayed release (DR/EC) 81 mg PO QAM rosuvastatin [Crestor] 40 mg tablet 40 mg PO HS calcium carbonate-vitamin D3 600 mg-25 mcg (1,000 unit) capsule 1 cap PO QAM metoclopramide HCl [Reglan] 10 mg tablet 5 mg PO UD Rx Instructions: take before breakfast and dinner furosemide 20 mg tablet 20 mg PO QAM anastrozole [Arimidex] 1 mg tablet 1 mg PO QAM Qty: 90 2RF potassium chloride 20 mEq tablet,ER particles/crystals 20 meq PO QAM Qty: 90 1RF lisinopril 2.5 mg tablet 2.5 mg PO QAM 30 Days Qty: 30 2RF famotidine 20 mg tablet 20 mg PO DAILY Qty: 90 3RF apixaban 5 mg tablet 5 mg PO BID Qty: 180 1RF Hold Instructions: On hold x 3 days albuterol sulfate [ProAir HFA] 90 mcg/actuation HFA aerosol inhaler 2 puff INH Q4H PRN (Reason: shortness of breath) Qty: 8.5 5RF metoprolol succinate [Toprol XL] 50 mg tablet extended release 24 hr 50 mg PO BID Qty: 60 5RF Advair HFA 230-21 mcg/actuation HFA aerosol inhaler 1 puff inhalation BID Qty: 12 5RF acetaminophen 650 mg tablet extended release 650 mg PO Q12H tramadol 50 mg tablet 50 mg PO BID PRN (Reason: pain) Qty: 10 0RF Referrals Referrals: Lucian Noe MD [Primary Care Provider] -
[2022-08-27 14:12] LABS: iSTAT Creatinine 0.8 mg/dl (0.6-1.3); iSTAT Hemoglobin 11.9 g/dl (12.0-16.0); iSTAT Ionized Calcium 0.99 mmol/l (1.12-1.32)
[2022-08-27 14:31] LABS: Basophils # (auto) 0.05 K/uL (0-0.2); Basophils % (auto) 0.6 %; Eosinophils # (auto) 0.25 K/uL (0-0.50); Hematocrit (blood only) 32.7 % (37.0-47.0); Hemoglobin 10.5 g/dl (12.0-16.0); Immature Granulocytes # (auto) 0.02 K/uL (0.01-0.20); Immature Granulocytes % (auto) 0.2 %; Lymphocytes # (auto) 1.07 K/uL (1.2-3.4); Lymphocytes % (auto) 12.8 %; Mean Corpuscular Hemoglobin 30.1 pg (25.0-34.0); Mean Corpuscular Hgb Conc 32.1 g/dL (32.0-36.0); Mean Corpuscular Volume 93.7 fL (80.0-100.0); Mean Platelet Volume 9.1 fL (9.4-12.4); Monocytes # (auto) 0.79 K/uL (0.11-0.59); Monocytes % (auto) 9.5 %; Neutrophils # (auto) 6.15 K/uL (1.40-6.50); Neutrophils % (auto) 73.9 %; Platelet Count 195 K/uL (130-400); RDW Coefficient of Variation 13.4 % (11.5-14.5); RDW Standard Deviation 45.6 fL (36.4-46.3); Red Blood Count 3.49 M/uL (4.20-5.40); White Blood Count 8.33 K/ul (4.8-10.8)
[2022-08-27 14:36] LABS: Anion Gap 5 (3-11); BUN Creatinine Ratio 21.6 (10-20); Blood Urea Nitrogen 19 mg/dl (6-23); Calcium 8.6 mg/dl (8.6-10.3); Carbon Dioxide 27 mmol/L (21-32); Chloride 105 mmol/L (98-107); Creatine Kinase 89 U/L (26-192); Est GFR (African American) 69.9 ml/min; Est GFR (Non-African American) 60.3 ml/min; Glucose 95 mg/dl (70-99(Fasting)); Potassium 3.8 mmol/L (3.5-5.1); Sodium 137 mmol/L (136-145)
[2022-08-27] MEDS ORDERED: OPTIRAY 320 100ml IV ONE (14:44)
[2022-08-27 14:49] LABS: INR 1.1 (0.9-1.1); Partial Thromboplastin Ratio 0.9; Partial Thromboplastin Time 26.1 Seconds (21.0-31.0); Prothrombin Time 11.7 Seconds (9.0-12.0)
--- NOTE | 2022-08-27 15:10 | CT Scan Report ---
CT tib/fib RT w con CT DOSE: 265.98 mGy.cm CLINICAL HISTORY: Right calf ecchymosis ?hematoma ?active bleeding TECHNIQUE: Multiaxial CT images of the right tibia/fibula were performed following the intravenous ad ministration of 89 cc of Optiray 320. Sagittal and coronal reformations were also obtained. A dose l owering technique was utilized adhering to the principles of ALARA. COMPARISON STUDY: Right knee CT 08/08/2022. FINDINGS: Partially visualized moderate hemarthrosis again noted. There is skin thickening and mild-t o-moderate subcutaneous edema seen within the right lower leg most pronounced distally. No loculated subcutaneous fluid collections to suggest an abscess. There is a multiloculated popliteal cyst extend ing into the proximal calf. This measures approximately 13 cm in length. The component extending into the proximal calf between the medial gastrocnemius and soleus muscles measures approximately 4.2 x 1 .6 cm. This demonstrates heterogeneous contents consistent with hemorrhage. There is trace edema/hemo rrhage tracking inferiorly from the popliteal cyst between the gastrocnemius and soleus muscles best seen on image 135. Therefore, this likely represents a partially ruptured popliteal cyst. Subtle hete rogeneous appearance to the medial distal gastrocnemius muscle on images 136 through 153 could repres ent a small intramuscular hematoma or artifact. Scattered areas of venous filling are noted within th e right lower leg. No evidence for active arterial extravasation. A few scattered dermal calcificatio ns are noted. No fracture or dislocation within the right tibia or fibula. IMPRESSION: 1. A moderate right knee hemarthrosis is again noted. 2. No acute fractures within the right lower leg. 3. There is a large popliteal cyst also demonstrating hemorrhagic contents. This measures up to 12 cm in length and extends into the proximal calf. There is also trace edema/hemorrhage tracking inferior ly from the popliteal cyst consistent with a partially ruptured popliteal cyst. 4. No evidence for active arterial extravasation. 5. Subtle heterogeneous appearance to the medial distal gastrocnemius muscle which could represent a small intramuscular hematoma or artifact. ACT 112: Negative or not required by law. Electronically signed by: Jai Blair M.D. 08/27/2022 3:07 PM
--- NOTE | 2022-08-27 15:18 | History & Physical Report ---
Date of Service August 27, 2022 Assessment & Plan (1) Hemarthrosis, right knee: Plan: Hold Eliquis and aspirin at this time - risk of DVT (recurrent episodes) and [place] off these discussed with the patient but really limited choice given worsening hemarthrosis and hemorrhagic popliteal cyst rupture at this time. Monitor CBC with AM labs. Hgb dropped from 13.7 -> 10.5. Consult orthopedics - consider repeat arthrocentesis not with steroid injection once Eliquis off for 48 hours. (2) Traumatic ecchymosis of right lower leg: (3) Rupture of popliteal cyst of right knee region: (4) HTN (hypertension): Plan: Continue lisinopril, metoprolol and lisinopril (5) GERD (gastroesophageal reflux disease): Plan: Continue famotidine 20mg PO daily (6) History of pulmonary embolism: Plan: Reason she is on Eliquis with recurrent DVTs, consider restarting a prophylaxis dose initially when ok from orthopedic stand point with eventual goal to go back to therapeutic dosing (7) Atherosclerotic heart disease of [place] coronary artery without angina pectoris: Plan: Hold aspirin Continue metoprolol, rosuvastatin (8) CHF (congestive heart failure): Plan: Per cardiology note, mixed ischemic/nonischemic. LVEF 45-49% [04/2020] Plan VTE Prophylaxis - chemical prophylaxis contraindicated Diet - regular Disposition - observation on med/surg Admission and Anticipated Discharge Date Admission Date: August 27, 2022 History of Present Illness Chief Complaint: Right leg pain, swelling and bruising Primary Care Provider: Lucian Noe MD Phill Valdez is an 86 year old female who presents to the ER with right leg knee and calf pain. She has been admitted twice for the same problem in July. On August 09 she underwent arthrocentesis with steroid injection. This was not sent for cell count and culture but was noted to be 13cc of blood aspirated. She improved following this and was discharged on her usual Eliquis and aspirin. The pain had spread to her medial calf by her admission on August 24 and suspected that her popliteal cyst had decompressed. Orthopedics noted to consider holding Eliquis and US calf for a fluid collection. She underwent US venous doppler that was negative for DVT but no dedicated scan for a fluid collection. She was discharged on Eliquis and aspirin. She returns today after significant worsening of her pain over the last 2 days with associated worsening ecchymosis and swelling of both her calf and knee. She is now unable to manage at home. Allergies Allergy/AdvReac Type Severity Reaction Status Date / Time nitroglycerin AdvReac Intermediate BP Verified 08/27/22 15:17 Decreases, HR Increases tramadol AdvReac Intermediate faint Verified 08/27/22 15:17 feeling, mind foggy not able to think Home Medications Medication Instructions Recorded Confirmed Type aspirin 81 mg tablet,delayed 81 mg PO QAM 12/13/17 08/27/22 History release rosuvastatin 40 mg tablet (Crestor) 40 mg PO HS 12/13/17 08/27/22 History furosemide 20 mg tablet 20 mg PO QAM 12/11/19 08/27/22 History metoclopramide HCl 10 mg tablet 5 mg PO UD 12/11/19 08/27/22 History (Reglan) acetaminophen 650 mg 650 mg PO Q12H 08/07/20 08/27/22 History tablet,extended release calcium carbonate 600 mg-vitamin 1 cap PO QAM 11/09/21 08/27/22 History D3 25 mcg (1,000 unit) capsule anastrozole 1 mg tablet (Arimidex) 1 mg PO QAM #90 tabs 03/04/22 08/27/22 Rx lisinopril 2.5 mg tablet 2.5 mg PO QAM 30 days #30 tabs 03/10/22 08/27/22 Rx famotidine 20 mg tablet 20 mg PO DAILY #90 tabs 04/22/22 08/27/22 Rx apixaban 5 mg tablet 5 mg PO BID #180 tabs 04/27/22 08/27/22 Rx albuterol sulfate 90 mcg/actuation 2 puff inhalation Q4H PRN 05/07/22 08/27/22 Rx aerosol inhaler (ProAir HFA) shortness of breath #8.5 grams metoprolol succinate 50 mg 50 mg PO BID #60 tabs 05/10/22 08/27/22 Rx tablet,extended release 24 hr (Toprol XL) fluticasone propionate 230 1 puff inhalation BID #12 grams 05/27/22 08/27/22 Rx mcg-salmeterol 21 mcg/actuation HFA inhaler (Advair HFA) tramadol 50 mg tablet 50 mg PO BID PRN pain #10 tabs 08/26/22 08/27/22 Rx potassium chloride 20 mEq 20 meq PO QAM #90 tabs 08/27/22 Rx tablet,extended release(part/cryst) Past Med/Surg History Medical History Acute hypoxemic respiratory failure due to COVID-19 Anemia Asthma Breast carcinoma, lobular Right. takes Arimidex daily Carotid artery stenosis CHF (congestive heart failure) Chronic obstructive pulmonary disease CKD (chronic kidney disease), stage III COVID-19 virus infection Diabetes mellitus, type 2 no medications -- diet controlled Diverticular disease Elevated vitamin B12 level Gastroparesis GERD (gastroesophageal reflux disease) HTN (hypertension) Hyperlipidemia LDL goal <100 Long-term (current) use of anticoagulants, INR goal 2.0-3.0 Metabolic encephalopathy Multiple pulmonary emboli S/P surgical procedure (~5-10 years ago) reason for warfarin daily Myocardial Infarction [address]. [address] Viera Open wound of left breast hx Osteoarthritis Productive cough Septic shock hx r/t UTI (2017) Systolic CHF, chronic Surgical History H/O vascular surgery port-a-cath insertion History of cardiac cath with stent following CABG with one stent. History of cataract surgery bilateral History of colonoscopy History of coronary artery bypass graft x2 vessels (1994) History of removal of Port-a-Cath Hx of lumpectomy right breast with lymph node removal S/P cholecystectomy Laprascopic S/P debridement right breast wound debridement + wound vac + skin graft from a cadaver. 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 Beliefs That Will Affect Care: None marital status: / Current Living Situation: Alone current occupational status: retired Feels Safe at Home: Yes Dental Care, Regularly: Yes Physical Activity Frequency: Does not Exercise Seatbelt Use: always Assistive Devices: Denture - Upper, Denture - Lower and Glasses Review of Systems Review of Systems: All systems reviewed & are unremarkable except as noted in HPI & below Physical Exam Constitutional: WD/WN, vitals as above Eyes: + anicteric sclerae; normal pupil size Respiratory: normal respiratory effort, lungs clear to auscultation Cardiovascular: Rate/Rhythm: regular rhythm and + tachycardic Heart Sounds: no murmur Extremities: + pedal edema (R > L) Gastrointestinal (Abdomen): normal bowel sounds, soft, nontender, no hepatosplenomegaly Musculoskeletal: Right knee effusion without surrounding erythema Skin: ecchymosis without collection palpated over calf emanating from right knee with few petechia Neurologic: moves all extremities and awake; not confused Psychiatric: A+Ox3, euthymic affect Results & Data Results & Data Vital Signs (Past 12 Hours) Vital Signs Temp Pulse Resp BP Pulse Ox 08/27/22 12:43 36.6 C 74 16 116/73 99 Laboratory Results Abnormal lab results 08/27/22 08/27/22 08/27/22 Range/Units 13:55 14:04 14:04 RBC 3.49 L (4.20-5.40) M/uL Hgb 10.5 L (12.0-16.0) g/dl POC Hgb 11.9 L (12.0-16.0) g/dl Hct 32.7 L (37.0-47.0) % POC Hct 35 L (37-47) % MPV 9.1 L (9.4-12.4) fL Lymph # (Auto) 1.07 L (1.2-3.4) K/uL Grand # (Auto) 0.79 H (0.11-0.59) K/uL POC Sodium 134 L (135-144) mmol/L POC Total CO2 21 L (24-31) mmol/L POC Anion Gap 14.0 L (16-25) mmol/L POC BUN 20 H (7-18) mg/dl BUN/Creatinine Ratio 21.6 H (10-20) POC Glucose (other) 100 H (70-99) mg/dl POC Ioniz Calcium [place] 0.99 L (1.12-1.32) mmol/l Diagnostic Findings CT tib/fib RT w con CT DOSE: 265.98 mGy.cm CLINICAL HISTORY: Right calf ecchymosis ?hematoma ?active bleeding TECHNIQUE: Multiaxial CT images of the right tibia/fibula were performed following the intravenous administration of 89 cc of Optiray 320. Sagittal and coronal reformations were also obtained. A dose lowering technique was utilized adhering to the principles of ALARA. COMPARISON STUDY: Right knee CT 08/08/2022. FINDINGS: Partially visualized moderate hemarthrosis again noted. There is skin thickening and ugzp-[id number] subcutaneous edema seen within the right lower leg most pronounced distally. No loculated subcutaneous fluid collections to suggest an abscess. There is a multiloculated popliteal cyst extending into the proximal calf. This measures approximately 13 cm in length. The component extending into the proximal calf between the medial gastrocnemius and soleus muscles measures approximately 4.2 x 1.6 cm. This demonstrates heterogeneous contents consistent with hemorrhage. There is trace edema/hemorrhage tracking inferiorly from the popliteal cyst between the gastrocnemius and soleus muscles best seen on image 135. Therefore, this likely represents a partially ruptured popliteal cyst. Subtle heterogeneous appearance to the medial distal gastrocnem ius muscle on images 136 through 153 could represent a small intramuscular hematoma or artifact. Scattered areas of venous filling are noted within the right lower leg. No evidence for active arterial extravasation. A few scattered dermal calcifications are noted. No fracture or dislocation within the right tibia or fibula. IMPRESSION: 1. A moderate right knee hemarthrosis is again noted. 2. No acute fractures within the right lower leg. 3. There is a large popliteal cyst also demonstrating hemorrhagic contents. This measures up to 12 cm in length and extends into the proximal calf. There is also trace edema/hemorrhage tracking inferiorly from the popliteal cyst consistent with a partially ruptured popliteal cyst. 4. No evidence for active arterial extravasation. 5. Subtle heterogeneous appearance to the medial distal gastrocnemius muscle which could represent a small intramuscular hematoma or artifact. Medications Administered ER Medications Given: Morphine 2mg IV Code Status & VTE Plan Code Status Full VTE Prophylaxis Plan VTE Prophylaxis will be ordered: No PG Care Time/CCT Total # of Minutes Spent Total Time Spent with Patient: Total time spent is greater than 50% in coordination of care (as documented) at patient's floor/unit and/or counseling patient: Coding Level of Care Code 56451 INT INP/OBS CARE 55MIN Diagnoses Hemarthrosis, right knee M25.061 Traumatic ecchymosis of right lower leg S80.11XA Rupture of popliteal cyst of right knee region M66.0 HTN (hypertension) I10 Hypertension type: essential hypertension GERD (gastroesophageal reflux disease) K21.9 Esophagitis presence: esophagitis presence not specified History of pulmonary embolism Z86.711 Atherosclerotic heart disease of [place] coronary artery without angina pectoris I25.10 [place] vs. transplanted heart: [place] heart CHF (congestive heart failure) I50.43 Heart failure chronicity: acute on chronic Heart failure type: combined systolic and diastolic (4) HTN (hypertension) Hypertension type: essential hypertension Qualified Code(s): I10 - Essential (primary) hypertension (5) GERD (gastroesophageal reflux disease) Esophagitis presence: esophagitis presence not specified Qualified Code(s): K21.9 - Gastro-esophageal reflux disease without esophagitis (7) Atherosclerotic heart disease of [place] coronary artery without angina pectoris [place] vs. transplanted heart: [place] heart Qualified Code(s): I25.10 - Atherosclerotic heart disease of [place] coronary artery without angina pectoris (8) CHF (congestive heart failure) Heart failure chronicity: acute on chronic Heart failure type: combined systolic and diastolic Qualified Code(s): I50.43 - Acute on chronic combined systolic (congestive) and diastolic (congestive) heart failure
[2022-08-27] MEDS ORDERED: ACETAMINOPHEN 1,000 MG/100 ML VIAL IV STA (15:57)
[2022-08-27] MEDS: ACETAMINOPHEN 500 MG TAB PO SCH (20:19)
[2022-08-27] MEDS: ROSUVASTATIN CALCIUM 20 MG TAB PO SCH (20:19)
[2022-08-27] MEDS: METOPROLOL SUCC 50MG EXT REL TAB PO SCH (20:19)
[2022-08-28] MEDS: METOCLOPRAMIDE HCL 5 MG TABLET PO SCH ×2 (05:03→16:59)
[2022-08-28 06:19] LABS: BUN Creatinine Ratio 21.6 (10-20); Calcium 9.1 mg/dl (8.6-10.3); Creatinine Clr Calc Pharmacy 49.6 ml/min; Est GFR (African American) 86.2 ml/min; Est GFR (Non-African American) 74.4 ml/min; Potassium 4.4 mmol/L (3.5-5.1)
[2022-08-28 06:21] LABS: Basophils # (auto) 0.04 K/uL (0-0.2); Basophils % (auto) 0.8 %; Eosinophils # (auto) 0.17 K/uL (0-0.50); Eosinophils % (auto) 3.4 %; Hematocrit (blood only) 33.1 % (37.0-47.0); Hemoglobin 10.9 g/dl (12.0-16.0); Immature Granulocytes # (auto) 0.01 K/uL (0.01-0.20); Immature Granulocytes % (auto) 0.2 %; Lymphocytes # (auto) 0.89 K/uL (1.2-3.4); Lymphocytes % (auto) 17.6 %; Mean Corpuscular Hemoglobin 30.6 pg (25.0-34.0); Mean Corpuscular Hgb Conc 32.9 g/dL (32.0-36.0); Mean Platelet Volume 9.4 fL (9.4-12.4); Monocytes # (auto) 0.54 K/uL (0.11-0.59); Monocytes % (auto) 10.7 %; Neutrophils % (auto) 67.3 %; Platelet Count 189 K/uL (130-400); RDW Coefficient of Variation 13.5 % (11.5-14.5); RDW Standard Deviation 45.7 fL (36.4-46.3); Red Blood Count 3.56 M/uL (4.20-5.40); White Blood Count 5.05 K/ul (4.8-10.8)
[2022-08-28] MEDS: METOPROLOL SUCC 50MG EXT REL TAB PO SCH ×2 (08:14→19:58)
[2022-08-28] MEDS: ACETAMINOPHEN 500 MG TAB PO SCH ×3 (08:14→19:58)
[2022-08-28] MEDS: FUROSEMIDE 20 MG TAB PO SCH (08:15)
[2022-08-28] MEDS: lisinopril 2.5 MG TAB PO SCH (08:15)
[2022-08-28] MEDS: FAMOTIDINE 20 MG TAB PO SCH (08:15)
[2022-08-28] MEDS: FLUTICASONE/VILANTEROL 200/25MCG 14 PUFFS/INHALER INH SCH (08:16)
[2022-08-28] MEDS: ANASTROZOLE 1 MG TAB PO SCH (08:16)
--- NOTE | 2022-08-28 10:44 | Orthopedic Consultation ---
I saw an evaluate the patient and agreed with the assessment below She has evidence of hematoma and hemarthrosis. I suspect this is due to over anticoagulation. Recommendation would be to hold anticoagulants if possible and have a discussion of risks and benefits of anticoagulation. No surgical indications at this point in time. Orthopedics will sign off. She is scheduled to see SIMA Grigsby in the office on August 31 for follow up. I agree with keeping that appointment if possible. Date of Consultation August 28, 2022 Assessment & Plan (1) Osteoarthritis of right knee: We had a long discussion about any benefits of attempted aspiration. I told the patient that because of the amount of time she has had the blood in the joint, it may not pass through the needle if it is coagulated. We also discussed that her increase in pain may actually be from the knee DJD and not the knee effus ion/hemarthrosis. Because she was having an increase in pain, we agreed to aspirate the knee today. After the superolateral aspect of the right knee was prepped with betadine and alcohol, an 18 gauge needle was used to aspirate the knee. Only ~2 cc of sanguinous fluid was aspirated from the joint. The knee was then dressed with a bandaid, gauze, gauze wrap, and an BRIAN bandage to provide some comp ression at the knee. She may WBAT on the RLE. ROM as tolerated. Thank you for the consultation. She may follow up with Dr. Estevez' clinic after discharge to discuss possible viscosupplement injections into the right knee for treatment of her osteoarthritis. (2) Hemarthrosis, right knee: History of Present Illness Reason for Consultation: Right knee pain and swelling. Attending Physician: Brittny Crandall MD History of Present Illness This is a patient with a hx of right knee DJD treated with steroid injections for pain relief. ~2.5 weeks ago, she had the right knee aspirated and injected while inpatient. She was noted to have hemarthrosis with the aspiration. She got some relief but the pain later returned. She was seen 3-4 days ago for repeat evaluation and it was felt that the hemarthrosis would resolve on its own. She had an increase in pain and we were reconsulted for possible re-aspiration. The patient states her pain has worsened and caused difficulty with ambulation. Allergies Allergy/AdvReac Type Severity Reaction Status Date / Time nitroglycerin AdvReac Intermediate BP Verified 08/27/22 15:17 Decreases, HR Increases tramadol AdvReac Intermediate faint Verified 08/27/22 15:17 feeling, mind foggy not able to think Home Medications Medication Instructions Recorded Confirmed Type aspirin 81 mg tablet,delayed 81 mg PO QAM 12/13/17 08/27/22 History release rosuvastatin 40 mg tablet (Crestor) 40 mg PO HS 12/13/17 08/27/22 History furosemide 20 mg tablet 20 mg PO QAM 12/11/19 08/27/22 History metoclopramide HCl 10 mg tablet 5 mg PO UD 12/11/19 08/27/22 History (Reglan) acetaminophen 650 mg 650 mg PO Q12H 08/07/20 08/27/22 History tablet,extended release calcium carbonate 600 mg-vitamin 1 cap PO QAM 11/09/21 08/27/22 History D3 25 mcg (1,000 unit) capsule anastrozole 1 mg tablet (Arimidex) 1 mg PO QAM #90 tabs 03/04/22 08/27/22 Rx lisinopril 2.5 mg tablet 2.5 mg PO QAM 30 days #30 tabs 03/10/22 08/27/22 Rx famotidine 20 mg tablet 20 mg PO DAILY #90 tabs 04/22/22 08/27/22 Rx apixaban 5 mg tablet 5 mg PO BID #180 tabs 04/27/22 08/27/22 Rx albuterol sulfate 90 mcg/actuation 2 puff inhalation Q4H PRN 05/07/22 08/27/22 Rx aerosol inhaler (ProAir HFA) shortness of breath #8.5 grams metoprolol succinate 50 mg 50 mg PO BID #60 tabs 05/10/22 08/27/22 Rx tablet,extended release 24 hr (Toprol XL) fluticasone propionate 230 1 puff inhalation BID #12 grams 05/27/22 08/27/22 Rx mcg-salmeterol 21 mcg/actuation HFA inhaler (Advair HFA) tramadol 50 mg tablet 50 mg PO BID PRN pain #10 tabs 08/26/22 08/27/22 Rx potassium chloride 20 mEq 20 meq PO QAM #90 tabs 08/27/22 Rx tablet,extended release(part/cryst) Patient History Medical History Acute hypoxemic respiratory failure due to COVID-19 Anemia Asthma Breast carcinoma, lobular Right. takes Arimidex daily Carotid artery stenosis CHF (congestive heart failure) Chronic obstructive pulmonary disease CKD (chronic kidney disease), stage III COVID-19 virus infection Diabetes mellitus, type 2 no medications -- diet controlled Diverticular disease Elevated vitamin B12 level Gastroparesis GERD (gastroesophageal reflux disease) HTN (hypertension) Hyperlipidemia LDL goal <100 Long-term (current) use of anticoagulants, INR goal 2.0-3.0 Metabolic encephalopathy Multiple pulmonary emboli S/P surgical procedure (~5-10 years ago) reason for warfarin daily Myocardial Infarction [address]. [address] Viera Open wound of left breast hx Osteoarthritis Productive cough Septic shock hx r/t UTI (2017) Systolic CHF, chronic Surgical History H/O vascular surgery port-a-cath insertion History of cardiac cath with stent following CABG with one stent. History of cataract surgery bilateral History of colonoscopy History of coronary artery bypass graft x2 vessels (1994) History of removal of Port-a-Cath Hx of lumpectomy right breast with lymph node removal S/P cholecystectomy Laprascopic S/P debridement right breast wound debridement + wound vac + skin graft from a cadaver. (multiple) S/P lymph node biopsy right breast & axillary Family History Father Lung cancer Brother Prostate cancer Myocardial infarction Other No family history of adverse response to anesthesia Denies family history of Colon cancer Ovarian cancer Breast cancer Social History Smoking Status: Former smoker Tobacco Type: Cigarettes Second Hand Exposure: No; Do You Dip or Chew Tobacco: No; Hx Alcohol Use: No Hx Substance Use: No Preferred Language: Kenyan Communication Ability: Effective Visual Impairment: No Limitations Hearing Ability: Normal Qual Field Manager Required: No Beliefs That Will Affect Care: None marital status: / Current Living Situation: Alone current occupational status: retired Feels Safe at Home: Yes Dental Care, Regularly: Yes Physical Activity Frequency: Does not Exercise Seatbelt Use: always Assistive Devices: Denture - Upper, Denture - Lower and Glasses Physical Exam Constitutional: WD/WN, vitals as above no acute distress (resting comfortably in bed) Musculoskeletal: Knee: + effusion (right knee: mild to moderate), + ecchymosis (posterior right knee, anterior/posterior lower leg), + limited ROM of knee (right knee: extension -15, flexion 45 then pain) and + joint line tenderness (right knee--cuco-patella, medial joint line); no skin erythema Skin: no rashes, warm and dry Trauma: no evidence of skin trauma Neurologic: normal touch/pain/proprioception Psychiatric: A+Ox3, euthymic affect Speech: normal rate/rhythm/volume of speech Results & Data Vital Signs (Past 12 Hours) Vital Signs Temp Pulse Resp BP Pulse Ox O2 Del Method 08/28/22 08:00 Room Air 08/28/22 07:08 36.9 C 79 16 113/72 97 Room Air
[2022-08-28] MEDS: oxyCODONE HCL IR 5 MG TAB (IMMEDIATE RELEASE) PO PRN ×2 (12:57→22:51)
--- NOTE | 2022-08-28 17:18 | Hospitalist Progress Note ---
Date of Service August 28, 2022 Assessment & Plan (1) Hemarthrosis, right knee: Plan: Recurrent, this is the third admission in the last several weeks for the same thing. Seen by orthopedics-aspiration attempt failed due to coagulated blood in the joint. CT knee shows hemorrhagic effusion and a ruptured popliteal cyst with hemorrhage down into the calf Orthopedics recommend continued conservative management, hold anticoagulation, follow-up in the office Continue to hold Eliquis and aspirin at this time - risk of DVT (recurrent episodes) and [place] off these discussed with the patient but really limited choice given worsening hemarthrosis and hemorrhagic popliteal cyst rupture at this time. Monitor CBC with AM labs. Hgb dropped from 13.7 -> 10.5 but stable again today Continue ice, pain control, compression and elevation (2) Traumatic ecchymosis of right lower leg: Plan: As above (3) Rupture of popliteal cyst of right knee region: Plan: As above (4) HTN (hypertension): Plan: Continue lisinopril, metoprolol and lisinopril Blood pressures are normal (5) GERD (gastroesophageal reflux disease): Plan: Continue famotidine 20mg PO daily (6) History of pulmonary embolism: Plan: Reason she is on Eliquis with recurrent DVTs, consider restarting a prophylaxis dose of Lovenox 40 Mg once daily in a few days and would go to rehab with this She is high risk for DVT/PE (7) Atherosclerotic heart disease of [place] coronary artery without angina pectoris: Plan: Hold aspirin for now but likely restart in a few days Continue metoprolol, rosuvastatin (8) CHF (congestive heart failure): Plan: Per cardiology note, mixed ischemic/nonischemic. LVEF 45-49% [04/2020] No acute issues Continue lisinopril, Toprol-XL Plan VTE Prophylaxis - chemical prophylaxis contraindicated Diet - regular Disposition -continued stay medical/surgical unit, needs rehab placement evaluation Admission and Anticipated Discharge Date Admission Date: August 27, 2022 Subjective Patient still having quite a bit of pain in the right knee but is controlled better with pain medicine here. She is interested in going to rehab No chest pain or shortness of breath, no other complaints. Discussed her care with her daughter on the phone Attempts were made by orthopedics to aspirate the knee but only 2 mL able to be aspirated due to likely coagulated blood in the knee Physical Exam Constitutional: WD/WN, vitals as above Respiratory: normal respiratory effort, lungs clear to auscultation Cardiovascular: RRR, no murmur, no edema Gastrointestinal (Abdomen): normal bowel sounds, soft, nontender, no hepatosplenomegaly Musculoskeletal: Extremities: + extremities abnormal to inspection (R knee with effusion, ecchymosis, ROM limited) Psychiatric: A+Ox3, euthymic affect Results & Data Results & Data Vital Signs (Past 12 Hours) Vital Signs Temp Pulse Resp BP Pulse Ox O2 Del Method 08/28/22 15:10 124/75 08/28/22 14:42 36.9 C 75 20 97/58 L 98 Room Air 08/28/22 08:00 Room Air 08/28/22 07:08 36.9 C 79 16 113/72 97 Room Air Diagnostic Findings CBC, BMP reviewed PG Care Time/CCT Total # of Minutes Spent Total Time Spent with Patient: Total time spent is greater than 50% in coordination of care (as documented) at patient's floor/unit and/or counseling patient: Coding Level of Care Code 75163 SUB INP/OBS CARE 2/35MIN Diagnoses Hemarthrosis, right knee M25.061 Traumatic ecchymosis of right lower leg S80.11XA Rupture of popliteal cyst of right knee region M66.0 HTN (hypertension) I10 Hypertension type: essential hypertension GERD (gastroesophageal reflux disease) K21.9 Esophagitis presence: esophagitis presence not specified History of pulmonary embolism Z86.711 Atherosclerotic heart disease of [place] coronary artery without angina pectoris I25.10 [place] vs. transplanted heart: [place] heart CHF (congestive heart failure) I50.43 Heart failure chronicity: acute on chronic Heart failure type: combined systolic and diastolic (4) HTN (hypertension) Hypertension type: essential hypertension Qualified Code(s): I10 - Essential (primary) hypertension (5) GERD (gastroesophageal reflux disease) Esophagitis presence: esophagitis presence not specified Qualified Code(s): K21.9 - Gastro-esophageal reflux disease without esophagitis (7) Atherosclerotic heart disease of [place] coronary artery without angina pectoris [place] vs. transplanted heart: [place] heart Qualified Code(s): I25.10 - Atherosclerotic heart disease of [place] coronary artery without angina pectoris (8) CHF (congestive heart failure) Heart failure chronicity: acute on chronic Heart failure type: combined systolic and diastolic Qualified Code(s): I50.43 - Acute on chronic combined systolic (congestive) and diastolic (congestive) heart failure
[2022-08-28] MEDS: ROSUVASTATIN CALCIUM 20 MG TAB PO SCH (19:59)
[2022-08-29] MEDS: METOCLOPRAMIDE HCL 5 MG TABLET PO SCH ×2 (05:57→16:37)
[2022-08-29] MEDS: ANASTROZOLE 1 MG TAB PO SCH (08:08)
[2022-08-29] MEDS: ACETAMINOPHEN 500 MG TAB PO SCH ×3 (08:08→20:24)
[2022-08-29] MEDS: FUROSEMIDE 20 MG TAB PO SCH (08:09)
[2022-08-29] MEDS: lisinopril 2.5 MG TAB PO SCH (08:09)
[2022-08-29] MEDS: FLUTICASONE/VILANTEROL 200/25MCG 14 PUFFS/INHALER INH SCH (08:09)
[2022-08-29] MEDS: FAMOTIDINE 20 MG TAB PO SCH (08:09)
[2022-08-29] MEDS: METOPROLOL SUCC 50MG EXT REL TAB PO SCH ×2 (08:09→20:24)
[2022-08-29] MEDS: oxyCODONE HCL IR 5 MG TAB (IMMEDIATE RELEASE) PO PRN (10:12)
[2022-08-29] MEDS ORDERED: traMADol HCL 50 MG TABLET PO PRN (16:07)
--- NOTE | 2022-08-29 16:15 | Hospitalist Progress Note ---
Date of Service August 29, 2022 Assessment & Plan (1) Hemarthrosis, right knee: Plan: Recurrent, this is the third admission in the last several weeks for the same thing. It seems she keeps coming back mostly for pain control. At home most recently, she was taking tramadol and had reasonable control of pain until she stopped taking the tramadol so she could drive to go grocery shopping. The pain then became severe which prompted her to return to the ER. Seen by orthopedics-aspiration attempt failed due to coagulated blood in the joint. CT knee shows hemorrhagic effusion and a ruptured popliteal cyst with hemorrhage down into the calf Orthopedics recommend continued conservative management, hold anticoagulation, follow-up in the office as scheduled on Thursday 08/31 Continue to hold Eliquis and aspirin at this time - risk of DVT (recurrent episodes) and TN off these discussed with the patient but really limited choice given worsening hemarthrosis and hemorrhagic popliteal cyst rupture at this time. Hgb dropped from 13.7 -> 10.5 but remained stable on repeat testing Continue ice, pain control, compression and elevation Pt is considering discussing TKA with Ortho -Oxycodone causing confusion--> change to tramadol 50mg po q6h prn -add on senna/docusate for opioid-induced constipation -PT/OT evals recommending home with home health and 18/10 care. Pt and daughter upset about this because traditionally, pt has refused to use a walker at home and has trouble managing her pain at home. I did encourage her to use a walker and will order one through case coordinator which she is now agreeable to using. Encouraged regular use of tramadol for pain once she is discharged. Will arrange home health. Pt having a panic attack on 08/29 and too anxious to go home--> will keep overnight and plan to discharge to home on Tuesday after re-evaluation with PT. -I have also advised patient and her daughter that the patient should NOT be driving at all until her knee is improved and certainly not while taking opioids (which she was not doing) (2) Traumatic ecchymosis of right lower leg: Plan: As above (3) Rupture of popliteal cyst of right knee region: Plan: As above (4) HTN (hypertension): Plan: Continue lisinopril, metoprolol and lisinopril Blood pressures are normal (5) GERD (gastroesophageal reflux disease): Plan: Continue famotidine 20mg PO daily (6) History of pulmonary embolism: Plan: Reason she is on Eliquis with recurrent DVTs, consider restarting a prophylaxis dose of Lovenox 40 Mg once daily in a few days if not going back on Eliquis She is high risk for DVT/PE An alternative also would be lowering her dose of Eliquis to the lower prophylactic dose of 2.5mg po bid when she restarts after holding it for a few days (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 LVEF 45-49% [04/2020] No acute issues Continue lisinopril, Toprol-XL Plan VTE Prophylaxis - chemical prophylaxis contraindicated Diet - regular Disposition -continued stay medical/surgical unit, plan to dc to home w/ home health Tuesday if pain controlled Admission and Anticipated Discharge Date Admission Date: August 27, 2022 Anticipated date of discharge: 08/30/22 Subjective Pt continues to have pain in right knee but controlled better with oxycodone however is confused and says she feels like she's having a panic attack. She is upset that she is doing too well to go to rehab. Physical Exam Constitutional: WD/WN, vitals as above Respiratory: normal respiratory effort, lungs clear to auscultation Cardiovascular: RRR, no murmur, no edema Gastrointestinal (Abdomen): normal bowel sounds, soft, nontender, no hepatosplenomegaly Musculoskeletal: Extremities: + extremities abnormal to inspection (R knee with effusion, ecchymosis, ROM limited) Psychiatric: Orientation: alert and oriented x 3 Affect: + anxious affect Results & Data Results & Data Vital Signs (Past 12 Hours) Vital Signs Temp Pulse Resp BP Pulse Ox O2 Del Method 08/29/22 15:35 36.6 C 75 16 111/74 100 Room Air 08/29/22 07:54 Room Air 08/29/22 07:28 36.6 C 73 20 117/75 100 Room Air PG Care Time/CCT Total # of Minutes Spent Total Time Spent with Patient: Total time spent is greater than 50% in coordination of care (as documented) at patient's floor/unit and/or counseling patient: Coding Level of Care Code 00659 SUB INP/OBS CARE MIN Diagnoses Hemarthrosis, right knee M25.061 Traumatic ecchymosis of right lower leg S80.11XA Rupture of popliteal cyst of right knee region M66.0 HTN (hypertension) I10 Hypertension type: essential hypertension GERD (gastroesophageal reflux disease) K21.9 Esophagitis presence: esophagitis presence not specified History of pulmonary embolism Z86.711 Atherosclerotic heart disease of [place] coronary artery without angina pectoris I25.10 [place] vs. transplanted heart: [place] heart CHF (congestive heart failure) I50.43 Heart failure type: combined systolic and diastolic Heart failure chronicity: acute on chronic (4) HTN (hypertension) Hypertension type: essential hypertension Qualified Code(s): I10 - Essential (primary) hypertension (5) GERD (gastroesophageal reflux disease) Esophagitis presence: esophagitis presence not specified Qualified Code(s): K21.9 - Gastro-esophageal reflux disease without esophagitis (7) Atherosclerotic heart disease of [place] coronary artery without angina pectoris [place] vs. transplanted heart: [place] heart Qualified Code(s): I25.10 - Atherosclerotic heart disease of [place] coronary artery without angina pectoris (8) CHF (congestive heart failure) Heart failure type: combined systolic and diastolic Heart failure chronicity: acute on chronic Qualified Code(s): I50.43 - Acute on chronic combined systolic (congestive) and diastolic (congestive) heart failure
[2022-08-29] MEDS: DOCUSATE SODIUM/SENNA 50/8.6MG TAB PO SCH (16:37)
[2022-08-29] MEDS: ROSUVASTATIN CALCIUM 20 MG TAB PO SCH (20:24)
[2022-08-29] MEDS ORDERED: MoRPHine SULFATE 2 MG/ML CARP IV STA (23:32)
[2022-08-30] MEDS: METOCLOPRAMIDE HCL 5 MG TABLET PO SCH (05:39)
[2022-08-30 07:43] VITALS: BP 119/72; PULSE 76; TEMP 97.7; O2SAT 100
[2022-08-30] MEDS: lisinopril 2.5 MG TAB PO SCH (08:20)
[2022-08-30] MEDS: METOPROLOL SUCC 50MG EXT REL TAB PO SCH (08:20)
[2022-08-30] MEDS: DOCUSATE SODIUM/SENNA 50/8.6MG TAB PO SCH (08:20)
[2022-08-30] MEDS: FAMOTIDINE 20 MG TAB PO SCH (08:20)
[2022-08-30] MEDS: FUROSEMIDE 20 MG TAB PO SCH (08:20)
[2022-08-30] MEDS: ANASTROZOLE 1 MG TAB PO SCH (08:21)
[2022-08-30] MEDS: FLUTICASONE/VILANTEROL 200/25MCG 14 PUFFS/INHALER INH SCH (08:21)
[2022-08-30] MEDS: ACETAMINOPHEN 500 MG TAB PO SCH ×2 (08:21→13:19)
--- NOTE | 2022-08-30 12:57 | Discharge Summary ---
Date of Service August 30, 2022 Admission HPI Per Admitting Provider Phill Valdez is an 86 year old female who presents to the ER with right leg knee and calf pain. She has been admitted twice for the same problem in July. On August 09 she underwent arthrocentesis with steroid injection. This was not sent for cell count and culture but was noted to be 13cc of blood aspirated. She improved following this and was discharged on her usual Eliquis and aspirin. The pain had spread to her medial calf by her admission on August 24 and suspected that her popliteal cyst had decompressed. Orthopedics noted to consider holding Eliquis and US calf for a fluid collection. She underwent US venous doppler that was negative for DVT but no dedicated scan for a fluid collection. She was discharged on Eliquis and aspirin. She returns today after significant worsening of her pain over the last 2 days with associated worsening ecchymosis and swelling of both her calf and knee. She is now unable to manage at home. Principal Diagnosis R Knee Hemearthrosis, Ruptured Popliteal Cyst, OA Discharge Exam General: A&Ox3. NAD. Cooperative. HEENT: Atraumatic, normocephalic. PERLAA. Vision/hearing intact Pulm: CTAB A&P. -wheezes, -rales, -rhonchi. Symmetrical chest rise. No increased work of breathing. No respiratory distress. Cardiac: RRR, -mrg. Radial pulses intact and symmetrical. Abdominal: Nontender, nondistended, soft. BS present. Extremities: Right knee with effusion, ecchymosis, intact passive range of motion. Ice pack is in place at time of visit. Sensation of soft touch intact in the feet bilaterally, PT pulse intact bilaterally. Ankle dorsiflexion/plantarflexion intact bilaterally Discharge Data Allergies Allergy/AdvReac Type Severity Reaction Status Date / Time nitroglycerin AdvReac Intermediate BP Verified 08/27/22 15:17 Decreases, HR Increases tramadol AdvReac Intermediate faint Verified 08/27/22 15:17 feeling, mind foggy not able to think Consultations 08/27/22 14:16 ED Decision to Admit Stat 08/27/22 18:38 Consult Orthopedic Surgery Routine Ordered Studies 08/27/22 14:36 CT tib/fib RT w con Stat Hospital Course (1) Hemarthrosis, right knee: Gena is an 86-year-old female who presented to the hospital for pain control of right knee with OA and hemarthrosis/suspected ruptured popliteal cyst. During admission she was treated for pain control, and did note that she had a severely increased amount of pain after she had stopped taking tramadol and walk while grocery shopping without a walker with subsequent pain the next day. CT was consistent with a ruptured popliteal cyst with hemorrhage, her Eliquis and aspirin were held. 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 The risk/benefits of holding versus resuming Eliquis and aspirin were discussed with her during admission. It was recommended to hold Eliquis for several days in the setting of hemarthrosis and then resume Eliquis dose reduced 2.5 mg twice daily 09/03/2022. She has an orthopedic follow-up appointment scheduled for 08/31/2022 for which she will discuss resuming Eliquis, she has considered TKA and she will discuss resuming versus holding Eliquis if surgical intervention is expected with orthopedist at her 08/31 follow-up appointment. She was seen by PT/OT and discharged home with a walker and home health was recommended. To do as outpatient: 1. Resume Eliquis 2.5 mg twice daily 09/03/2022 unless recommended to defer further at orthopedic follow-up. Patient is high risk for VTE with a past history of DVTs/PE. 2. Orthopedic follow-up for hemarthrosis and TKA evaluation 3. Routine PCP follow-up 4. Continue tramadol for breakthrough pain control, patient recommended to ambulate as instructed with a walker to help offload 5. Patient may not drive until her knee is improved and until she has stopped taking narcotics. This was discussed with her prior to discharge (2) Traumatic ecchymosis of right lower leg: As above (3) Rupture of popliteal cyst of right knee region: As above (4) HTN (hypertension): Continue lisinopril, metoprolol and lisinopril Blood pressures are normal (5) GERD (gastroesophageal reflux disease): Continue famotidine 20mg PO daily (6) History of pulmonary embolism: Reason she is on Eliquis with recurrent DVTs, consider restarting a prophylaxis dose of Lovenox 40 Mg once daily in a few days if not going back on Eliquis She is high risk for DVT/PE An alternative also would be lowering her dose of Eliquis to the lower prophylactic dose of 2.5mg po bid when she restarts after holding it for a few days (7) Atherosclerotic heart disease of [place] coronary artery without angina pectoris: Hold aspirin for now but likely restart in a few days Continue metoprolol, rosuvastatin (8) CHF (congestive heart failure): Per cardiology note, mixed ischemic/nonischemic. LVEF 45-49% [04/2020] No acute issues Continue lisinopril, Toprol-XL Plan VTE Prophylaxis - chemical prophylaxis contraindicated Diet - regular Disposition -continued stay medical/surgical unit, plan to dc to home w/ home health Tuesday if pain controlled Total Time Total Time Spent Total Time Spent (In Minutes): Time spend day of discharge 40 minutes including direct patient care, documentation, review of labs and images, and coordination of care. Discharge Plan Discharge Items Patient Disposition: Home - Home Health Services Reason For Visit: KNEE PAIN Discharge Diagnosis: Right knee pain, OA, ruptured cyst Activity: Per Instructions section Non-emergency contact: Primary Care Provider and Specialist Call non-emergency contact if: you have any medication questions, your symptoms worsen and your pain is not controlled Follow-up/Referrals: Lucian Noe MD [Primary Care Provider] - Diet: Regular Addtl Attending Provider Instructions: You were seen in the hospital for knee pain. You were noted to have hemarthrosis of the right knee with suspected hemorrhagic effusion and ruptured popliteal cyst with osteoarthritis of the knee. The risk/benefits of continuing versus holding aspirin and Eliquis were discussed with you during admission. During admission and on discharge your Eliquis and aspirin were temporarily held due to worsening hemarthrosis and hemorrhagic popliteal cysts pending orthopedic follow-up 08/31/2022. Please resume Eliquis at a dose of 2.5 mg twice daily (1/2 tablet twice daily) starting 09/03/2022; however please discuss this date of resuming Eliquis with your orthopedic follow-up as they may wish to hold or adjust the timing based on their evaluation. You have been prescribed tramadol 50 mg p.o. every 6 hours as needed for breakthrough pain control. This medication can cause sedation and constipation. You may take [id number] MiraLAX 1 capful once daily to help with constipation. You are seen by PT/OT who recommended home with home health care. Please use the walker to ambulate as instructed. Please do not drive until your knee is improved, and do not drive if you have taken any opioids including tramadol in the previous 24 hours. A followup appointment is being scheduled for you with Dr. Noe. You should be seen seen within 1 week. You should receive a call to confirm this appointment. If you do not receive a call within 48 hours to confirm this appointment, or need to change this appointment, please call the provider's office. If you develop any new or worsening symptoms including fever, chills, sweats, chest pain, chest pressure, difficulty breathing, uncontrolled nausea/vomiting, rash, wheezing, passing out or nearly passing out, bleeding, black/bloody bowel movements, or other new or concerning symptoms please call your primary care physician, or call 911 for re-evaluation in the emergency department if you are very concerned. Pending Studies at Discharge: No Stand-Alone Forms: My [employer], Smoking Cessation Medications and DC Order Prescriptions: New tramadol 50 mg Tablet 50 mg PO Q6H PRN (Reason: pain) 4 Days Qty: 30 1RF Continued rosuvastatin [Crestor] 40 mg tablet 40 mg PO HS calcium carbonate-vitamin D3 600 mg-25 mcg (1,000 unit) capsule 1 cap PO QAM metoclopramide HCl [Reglan] 10 mg tablet 5 mg PO UD Rx Instructions: take before breakfast and dinner furosemide 20 mg tablet 20 mg PO QAM anastrozole [Arimidex] 1 mg tablet 1 mg PO QAM Qty: 90 2RF lisinopril 2.5 mg tablet 2.5 mg PO QAM 30 Days Qty: 30 2RF famotidine 20 mg tablet 20 mg PO DAILY Qty: 90 3RF albuterol sulfate [ProAir HFA] 90 mcg/actuation HFA aerosol inhaler 2 puff INH Q4H PRN (Reason: shortness of breath) Qty: 8.5 5RF metoprolol succinate [Toprol XL] 50 mg tablet extended release 24 hr 50 mg PO BID Qty: 60 5RF Advair HFA 230-21 mcg/actuation HFA aerosol inhaler 1 puff inhalation BID Qty: 12 5RF potassium chloride 20 mEq tablet,ER particles/crystals 20 meq PO QAM Qty: 90 1RF acetaminophen 650 mg tablet extended release 650 mg PO Q12H Discontinued aspirin 81 mg tablet,delayed release (DR/EC) 81 mg PO QAM apixaban 5 mg tablet 5 mg PO BID Qty: 180 1RF Hold Instructions: On hold x 3 days tramadol 50 mg tablet 50 mg PO BID PRN (Reason: pain) Qty: 10 0RF Discharge Orders: Discharge Order (Routine); Ordered 08/30/22 Ordered By: Justin Aguillon Admission Data Admit Date/Time: 08/29/22 16:24 Attending Provider: Justin Aguillon Admit Provider: Otilio Reveles Primary Care Provider: Lucian Noe Other Providers: Otilio Reveles ; Giuseppe Solo ; [facility] Coding Level of Care Code 46778 INP/OBS DISCH >30 MIN Diagnoses Hemarthrosis, right knee M25.061 Traumatic ecchymosis of right lower leg S80.11XA Rupture of popliteal cyst of right knee region M66.0 HTN (hypertension) I10 Hypertension type: essential hypertension GERD (gastroesophageal reflux disease) K21.9 Esophagitis presence: esophagitis presence not specified History of pulmonary embolism Z86.711 Atherosclerotic heart disease of [place] coronary artery without angina pectoris I25.10 [place] vs. transplanted heart: [place] heart CHF (congestive heart failure) I50.43 Heart failure type: combined systolic and diastolic Heart failure chronicity: acute on chronic
== END 2022-08-30 15:53 | disposition home health service (06) | DRG 554 ==
LOC: ED 12:37 → 3E 12:37 → SUATTDRO 13:55 → 3E 18:00 → SUATTDRO 08-29 16:24

== ENCOUNTER 2023-03-08 20:39 | Observation (INO) ==
--- NOTE | 2023-03-08 21:09 | Emergency Department Note ---
Impression & Plan Foot fracture, right, Ambulatory dysfunction ED Provider Note NAME: NANCY STARKS AGE: 87 SEX: F : 1935 ARRIVES VIA: Walk-In INFORMANT: Patient ED PROVIDER(S): Joel Patton DO CHIEF COMPLAINT: right foot pain HPI: Patient is an 87-year-old female who presents ER for right lateral foot pain. She notes she fell somewhere around 2. She was washing her windows outside and stepped backwards and tripped and fell onto her right buttocks. She rolled her right lateral foot. She denies hitting her head. No head or neck pain. No chest pain or shortness of breath. No hip pain. No knee or ankle pain. She notes pain is focal in her right lateral foot. She does take Eliquis. No other exacerbating or remitting factors. Pain is worse with walking. Additional history is obtained by daughter who is present at bedside and notes that it occurred before 215 as she presented to the house at that time. ADDITIONAL HISTORY OBTAINED: Per HPI Chronic Medical/Social Conditions Affecting Care: Per HPI PAST MEDICAL HISTORY:See Below PAST SURGICAL HISTORY:See Below FAMILY HISTORY:See Below SOCIAL HISTORY:See Below HOME MEDICATIONS:See Below ALLERGIES:See Below VITALS:See Below PHYSICAL EXAMINATION: GENERAL: alert, well appearing, well nourished, no distress, non-toxic HEAD: normal cephalic, atraumatic EYE EXAM: normal conjunctiva, PERRL and EOM's grossly intact OROPHARYNX: no exudate, no erythema, lips, buccal mucosa, and tongue normal and mucous membranes are moist NECK: supple, no nuchal rigidity, no adenopathy, non-tender CHEST: stable to compression anteriorly and posteriorly LUNGS: clear to auscultation. Normal chest wall mechanics HEART: no murmurs, S1 normal and S2 normal ABDOMEN: abdomen soft, non-tender, normo-active bowel sounds, no masses, no rebound or guarding. PELVIS: stable to compression anteriorly and posteriorly BACK: Back is symmetrical on inspection and there is no deformity, no midline tenderness, no CVA tenderness. UPPER EXTREMITIES: full active and passive range of motion of all joints without tenderness to palpation LOWER EXTREMITIES: Full active and passive range of motion of bilateral hips knees ankles. No tenderness throughout the femurs tib-fib's. Bruising and swelling over the right fifth metatarsal at the base. Skin is intact. Tenderness present. NEURO EXAM: Normal sensorium, cranial nerves II-XII grossly intact, normal speech, no gross weakness of arms, no gross weakness of legs. GCS: 15. MEDICAL DECISION MAKING: Patient is an 87-year-old female who presents ER following a mechanical fall at home. She denies any head strike. No head or neck pain. No other complaints with the exception of right lateral foot pain. X-rays of the foot and ankle show a right proximal metatarsal fracture. She was placed in a walking boot. Patient is tearful crying and shaking noting that she cannot go home. We got her in a walker and she took 5 steps and started crying stating that she cannot do it. She is complaining of pain with the foot in the walking boot and notes that she cannot walk without putting weight on it. She further elaborated that she cannot get into her house. Had discussion with daughter at bedside. Patient says she would like to be placed. Discussed case with the hospitalist for observation for possible placement and evaluation by Ortho. CBC shows no significant leukocytosis or anemia. BMP was pending upon admission. External Records Reviewed: Follows with Dr. Lucian Noe on 11/21/2022 for anemia Consults/Care Managements Discussions: Per [facility] Triage Nursing notes reviewed. Limited review of prior medical records performed Vital Signs: reviewed and remarkable for HTN Differential diagnosis: Differential diagnoses include major intracranial, cervical, spinal, thoracic, abdominal, pelvic and neurologic injury. Fracture, contusion, sprain, strain, laceration, abrasions included as well. ER treatment provided: See below Diagnostics interpreted by me include EKG and cardiac monitoring as listed below: -ECG: none -Laboratory studies:Interpreted by me as stated above in MDM and shown below. Imaging studies: Xrays: As interpreted by me: X-ray of the right foot shows a right fifth metatarsal fracture at the base. X-ray of the right ankle shows no acute fracture dislocation per my read/interpretation CTs show: none Procedures:none Critical Care: None Past Med/Surg History Medical History (Updated 03/08/23 @ 23:32 by Joel Patton DO) Hospital discharge follow-up Productive cough Elevated vitamin B12 level Acute hypoxemic respiratory failure COVID-19 virus infection Metabolic encephalopathy Sepsis Acute dehydration Acute hypoxemic respiratory failure due to COVID-19 Rash Petechiae Encounter for pre-operative examination Carotid artery stenosis Gastroparesis Osteoarthritis Diverticular disease Diabetes mellitus, type 2 no medications -- diet controlled Myocardial Infarction [address]. [address] Viera Chronic obstructive pulmonary disease Long-term (current) use of anticoagulants, INR goal 2.0-3.0 Open wound of left breast hx Asthma Septic shock hx r/t UTI (2018) GERD (gastroesophageal reflux disease) CKD (chronic kidney disease), stage III Multiple pulmonary emboli S/P surgical procedure (~5-10 years ago) reason for warfarin daily Anemia Systolic CHF, chronic Hyperlipidemia LDL goal <100 HTN (hypertension) Breast carcinoma, lobular Right. takes Arimidex daily CHF (congestive heart failure) Surgical History H/O vascular surgery port-a-cath insertion History of cardiac cath with stent following CABG with one stent. History of cataract surgery bilateral History of colonoscopy History of coronary artery bypass graft x2 vessels (1994) History of removal of Port-a-Cath Hx of lumpectomy right breast with lymph node removal S/P cholecystectomy Laprascopic S/P debridement right breast wound debridement + wound vac + skin graft from a cadaver. (multiple) S/P lymph node biopsy right breast & axillary Family History Father Lung cancer Brother Prostate cancer Myocardial infarction Other No family history of adverse response to anesthesia Denies family history of Colon cancer Ovarian cancer Breast cancer Social History Smoking Status: Former smoker Tobacco Type: Cigarettes Second Hand Exposure: No; Do You Dip or Chew Tobacco: No; Hx Alcohol Use: No Hx Substance Use: No Preferred Language: Albanian Communication Ability: Effective Visual Impairment: No Limitations Hearing Ability: Normal Word Processing Specialist Required: No Beliefs That Will Affect Care: None marital status: / Current Living Situation: Alone current occupational status: retired Feels Safe at Home: Yes Dental Care, Regularly: Yes Physical Activity Frequency: Does not Exercise Seatbelt Use: always Assistive Devices: Cane and Walker Allergies Allergies Allergy/AdvReac Type Severity Reaction Status Date / Time nitroglycerin AdvReac Intermediate BP Verified 03/08/23 21:35 Decreases, HR Increases tramadol AdvReac Intermediate faint Verified 03/08/23 21:35 feeling, mind foggy not able to think Home Meds Home Medications Medication Instructions Recorded Confirmed rosuvastatin 40 mg tablet (Crestor) 40 mg PO HS 12/13/17 03/08/23 furosemide 20 mg tablet 20 mg PO QAM 12/11/19 03/08/23 metoclopramide HCl 10 mg tablet 5 mg PO DIRECTED 12/11/19 03/08/23 (Reglan) acetaminophen 650 mg 1,300 mg PO TID 08/07/20 03/08/23 tablet,extended release calcium carbonate 600 mg-vitamin 1 cap PO QAM 11/09/21 03/08/23 D3 25 mcg (1,000 unit) capsule Previous Rx's Medication Instructions Recorded famotidine 20 mg tablet 20 mg PO DAILY #90 tabs 04/22/22 albuterol sulfate 90 mcg/actuation 2 puff inhalation Q4H PRN 05/07/22 aerosol inhaler (ProAir HFA) shortness of breath #8.5 grams fluticasone propionate 230 1 puff inhalation BID #12 grams 05/27/22 mcg-salmeterol 21 mcg/actuation HFA inhaler (Advair HFA) anastrozole 1 mg tablet (Arimidex) 1 mg PO QAM #90 tabs 11/04/22 apixaban 5 mg tablet 5 mg PO BID #180 tabs 11/17/22 metoprolol succinate 50 mg 50 mg PO BID #60 tabs 11/30/22 tablet,extended release 24 hr (Toprol XL) lisinopril 2.5 mg tablet 2.5 mg PO QAM 30 days #30 tabs 12/13/22 potassium chloride 20 mEq 20 meq PO QAM #90 tabs 02/22/23 tablet,extended release(part/cryst) Results & Data (ED) Vital Signs Vital Signs - 24 hr 03/08/23 20:43 03/08/23 22:52 Temperature 36.8 C Temperature Source Temporal Artery Scan Pulse Rate 92 H Pulse Rate [Right Finger] 73 Respiratory Rate 16 19 Blood Pressure 144/75 H Blood Pressure [Left Arm] 146/88 H Blood Pressure Mean 98 Blood Pressure Mean [Left Arm] 107 Pulse Oximetry 96 100 Oxygen Delivery Method Room Air Room Air Sepsis Recent Fever Within 48 Hours No Sepsis New/Unexplained Change in Mental Status No Sepsis Action Taken by Nursing No Action Required Laboratory Data 03/08/23 22:38 03/08/23 22:38 Lab Results 03/08/23 Range/Units 22:38 WBC 7.37 (4.8-10.8) K/ul RBC 4.80 (4.20-5.40) M/uL Hgb 13.8 (12.0-16.0) g/dl Hct 42.5 (37.0-47.0) % MCV 88.5 (80.0-100.0) fL MCH 28.8 (25.0-34.0) pg MCHC 32.5 (32.0-36.0) g/dL RDW Std Deviation 44.0 (36.4-46.3) fL RDW Coeff of Cathy 13.5 (11.5-14.5) % Plt Count 241 (130-400) K/uL MPV 9.1 L (9.4-12.4) fL Immature Gran % (Auto) 0.4 % Neut % (Auto) 63.2 % Lymph % (Auto) 15.5 % Otoe % (Auto) 9.5 % Eos % (Auto) 10.7 % Baso % (Auto) 0.7 % Neut # (Auto) 4.66 (1.40-6.50) K/uL Lymph # (Auto) 1.14 L (1.20-3.40) K/uL Otoe # (Auto) 0.70 H (0.11-0.59) K/uL Eos # (Auto) 0.79 H (0.00-0.50) K/uL Baso # (Auto) 0.05 (0.00-0.20) K/uL Immature Gran # (Auto) 0.03 (0.01-0.20) K/uL Administered Medications Discontinued Medications Acetaminophen (Acetaminophen 325 Mg Tab) 650 mg PO NOW STA Stop: 03/08/23 21:58 Last Admin: 03/08/23 22:12 Dose: 650 mg Documented By: LILIANW Morphine Sulfate (Morphine Sulfate 2 Mg/Ml Carp) 2 mg IV NOW STA Stop: 03/08/23 22:26 Last Admin: 03/08/23 22:54 Dose: 2 mg Documented By: MARIAH Discharge Plan Visit Data Chief Complaint: Foot Injury/Pain Stated Complaint: POSSIBLE BROKEN FOOT, FELL AND TRIPPED ED Provider: Joel Patton Discharge Problem: Foot fracture, right, Ambulatory dysfunction Discharge Instructions Krames/Other Patient Handouts: Fifth Metatarsal Fx Activity Restrictions/Additional Instructions: ORTHOPEDIC INSTRUCTIONS: Please take Tylenol or Motrin as needed for pain. Ice compresses for 20 minutes at a time four times daily for 2-3 days. Use the crutches and do not bear weight on your right foot. Rest and elevate your injury. Please call one of the 3 listed orthopedic providers below first thing tomorrow morning after 8 AM to set shoulder follow-up. Return to the ER immediately for any numbness, tingling, severe pain, extreme swelling in the extremity or as needed. Call [facility], [phone], [] to arrange follow up for your injury. Call [facility], [phone], [] to arrange follow up for your injury. Call [facility], [phone], [] to arrange follow up for your injury. Follow-up with your primary care physician in 2 to 3 days for a recheck of your current condition. Forms Stand Alone Forms: [facility] [employer] Prescriptions Prescriptions: No Action rosuvastatin [Crestor] 40 mg tablet 40 mg PO HS calcium carbonate-vitamin D3 600 mg-25 mcg (1,000 unit) capsule 1 cap PO QAM metoclopramide HCl [Reglan] 10 mg tablet 5 mg PO DIRECTED Rx Instructions: take before breakfast and dinner furosemide 20 mg tablet 20 mg PO QAM famotidine 20 mg tablet 20 mg PO DAILY Qty: 90 3RF albuterol sulfate [ProAir HFA] 90 mcg/actuation HFA aerosol inhaler 2 puff INH Q4H PRN (Reason: shortness of breath) Qty: 8.5 5RF Advair HFA 230-21 mcg/actuation HFA aerosol inhaler 1 puff inhalation BID Qty: 12 5RF anastrozole [Arimidex] 1 mg tablet 1 mg PO QAM Qty: 90 2RF metoprolol succinate [Toprol XL] 50 mg tablet extended release 24 hr 50 mg PO BID Qty: 60 5RF lisinopril 2.5 mg tablet 2.5 mg PO QAM 30 Days Qty: 30 2RF potassium chloride 20 mEq tablet,ER particles/crystals 20 meq PO QAM Qty: 90 1RF acetaminophen 650 mg tablet extended release 1,300 mg PO TID apixaban 5 mg tablet 5 mg PO BID Qty: 180 1RF Referrals Referrals: PCP,NO [Physician] - Discharge Problem: Foot fracture, right Qualifiers: Encounter type: initial encounter Fracture type: closed Qualified Code(s): S 92.901A - Unspecified fracture of right foot, initial encounter for closed fracture
[2023-03-08] MEDS ORDERED: ACETAMINOPHEN 325 MG TAB PO STA (21:57)
[2023-03-08] MEDS ORDERED: MoRPHine SULFATE 2 MG/ML CARP IV STA (22:25)
[2023-03-08 22:56] LABS: Basophils # (auto) 0.05 K/uL (0.00-0.20); Basophils % (auto) 0.7 %; Eosinophils # (auto) 0.79 K/uL (0.00-0.50); Eosinophils % (auto) 10.7 %; Hematocrit (blood only) 42.5 % (37.0-47.0); Hemoglobin 13.8 g/dl (12.0-16.0); Immature Granulocytes # (auto) 0.03 K/uL (0.01-0.20); Immature Granulocytes % (auto) 0.4 %; Lymphocytes # (auto) 1.14 K/uL (1.20-3.40); Lymphocytes % (auto) 15.5 %; Mean Corpuscular Hemoglobin 28.8 pg (25.0-34.0); Mean Corpuscular Hgb Conc 32.5 g/dL (32.0-36.0); Mean Corpuscular Volume 88.5 fL (80.0-100.0); Mean Platelet Volume 9.1 fL (9.4-12.4); Monocytes % (auto) 9.5 %; Neutrophils # (auto) 4.66 K/uL (1.40-6.50); Neutrophils % (auto) 63.2 %; Platelet Count 241 K/uL (130-400); RDW Coefficient of Variation 13.5 % (11.5-14.5); White Blood Count 7.37 K/ul (4.8-10.8)
--- NOTE | 2023-03-08 23:52 | History & Physical Report ---
Date of Service March 08, 2023 Assessment & Plan (1) Foot fracture, right: Plan: -R 5th proximal metatarsal fracture s/p mechanical fall -Likely osteoporotic fracture given age, postmenopausal, overall frailty -Exam w/o neurovascular compromise -Unlikely to require operative intervention, deferring orthopedics consult for now -Pain control- Tylenol PRN, Voltaren PRN. Can spot dose opioids for breakthrough pain -Maintain boot for now -PT/OT (2) Fall: Plan: -Mechanical fall as above -Fall precautions -PT/OT ordered (3) CHF (congestive heart failure): Plan: -History of HFrEF noted -Chronic, stable, not in exacerbation -Pt currently euvolemic -Continue home Lasix, Toprol, lisinopril (4) Breast carcinoma, lobular: Plan: -History of breast cancer noted -Continue anastrozole (5) History of pulmonary embolism: Plan: -Previous history of recurrent DVT + PE -Continue Eliquis, indefinitely. Low suspected bleeding risk s/p fall in this circumstance (6) Anemia: Plan: -Hgb stable, at baseline -Monitor CBC (7) CKD (chronic kidney disease), stage III: Plan: -Cr stable, at baseline -Monitor BMP (8) Asthma: Plan: -Chronic, stable, not in exacerbation -Continue albuterol PRN, daily Advair (9) Chronic obstructive pulmonary disease: Plan: -Chronic, stable, not in exacerbation -Continue albuterol PRN, daily Advair (10) Type 2 diabetes mellitus: Plan: -BSG acceptable on admission -Last A1C 5.7% in 10/2022 -Lantus, SSI while in hospital (11) GERD (gastroesophageal reflux disease): Plan: -Continue famotidine (12) HTN (hypertension): Plan: -BP stable at present -Continue lisinopril, Toprol (13) Hyperlipidemia: Plan: -Continue rosuvastatin Plan FENGI: DM2 Code status: Full DVT prophylaxis: Eliquis Isolation: None Unit: Medical/surgical Disposition planning: Pending PT/OT History of Present Illness Chief Complaint: Fall Primary Care Provider: Lucian Noe MD Pt is 87 yo F with PMH HFrEF, HTN, HLD, DM2, CAD s/p CABG, recurrent DVT w/ history of PE on chronic Eliquis COPD, asthma, GERD, CKD3, breast cancer, anemia presenting with fall. Pt reports falling around 1 PM on 03/08. Pt was outside washing windows and stumbled backwards before slipping and falling, landing on her buttocks. As she was falling, pt noted rolling R lateral foot inwards but did not hear any snap/popping sound. Pt did not strike her head. She did have immediate pain and swelling afterward around her R lateral foot and over base of 5th toe. She d enies any loss of consciousness prior to fall and retains full memory of event. Pt was able to get up and ambulate shortly afterward but had significant pain with ambulation. Pt's daughter visited afterward and brought her to ER. Pt arrived to ER hemodynamically stable. Initial evaluation significant for R foot/ankle XR w/ proximal metatarsal fracture. ER interventions include Tylenol 650 mg, morphine 2 mg IV, placement of walking boot. There was an attempt to have pt ambulate in ER but she was unable to do so due to pain and could not bear adequate weight on it. At present, pt reports continued pain but notes relief from the medications given in ER. Allergies Allergy/AdvReac Type Severity Reaction Status Date / Time nitroglycerin AdvReac Intermediate BP Verified 03/08/23 21:35 Decreases, HR Increases tramadol AdvReac Intermediate faint Verified 03/08/23 21:35 feeling, mind foggy not able to think Home Medications Medication Instructions Recorded Confirmed Type rosuvastatin 40 mg tablet (Crestor) 40 mg PO HS 12/13/17 03/08/23 History furosemide 20 mg tablet 20 mg PO QAM 12/11/19 03/08/23 History metoclopramide HCl 10 mg tablet 5 mg PO DIRECTED 12/11/19 03/08/23 History (Reglan) acetaminophen 650 mg 1,300 mg PO TID 08/07/20 03/08/23 History tablet,extended release calcium carbonate 600 mg-vitamin 1 cap PO QAM 11/09/21 03/08/23 History D3 25 mcg (1,000 unit) capsule famotidine 20 mg tablet 20 mg PO DAILY #90 tabs 04/22/22 03/08/23 Rx albuterol sulfate 90 mcg/actuation 2 puff inhalation Q4H PRN 05/07/22 03/08/23 Rx aerosol inhaler (ProAir HFA) shortness of breath #8.5 grams fluticasone propionate 230 1 puff inhalation BID #12 grams 05/27/22 03/08/23 Rx mcg-salmeterol 21 mcg/actuation HFA inhaler (Advair HFA) anastrozole 1 mg tablet (Arimidex) 1 mg PO QAM #90 tabs 11/04/22 03/08/23 Rx apixaban 5 mg tablet 5 mg PO BID #180 tabs 11/17/22 03/08/23 Rx metoprolol succinate 50 mg 50 mg PO BID #60 tabs 11/30/22 03/08/23 Rx tablet,extended release 24 hr (Toprol XL) lisinopril 2.5 mg tablet 2.5 mg PO QAM 30 days #30 tabs 12/13/22 03/08/23 Rx potassium chloride 20 mEq 20 meq PO QAM #90 tabs 02/22/23 03/08/23 Rx tablet,extended release(part/cryst) Past Med/Surg History Medical History (Updated 03/08/23 @ 23:56 by Alcon Paul MD) GERD (gastroesophageal reflux disease) Hyperlipidemia LDL goal <100 HTN (hypertension) Hospital discharge follow-up Productive cough Elevated vitamin B12 level Acute hypoxemic respiratory failure COVID-19 virus infection Metabolic encephalopathy Sepsis Acute dehydration Acute hypoxemic respiratory failure due to COVID-19 Rash Petechiae Encounter for pre-operative examination Carotid artery stenosis Gastroparesis Osteoarthritis Diverticular disease Diabetes mellitus, type 2 no medications -- diet controlled Myocardial Infarction [address]. [address] Viera Chronic obstructive pulmonary disease Long-term (current) use of anticoagulants, INR goal 2.0-3.0 Open wound of left breast hx Asthma Septic shock hx r/t UTI (2018) CKD (chronic kidney disease), stage III Multiple pulmonary emboli S/P surgical procedure (~5-10 years ago) reason for warfarin daily Anemia Systolic CHF, chronic Breast carcinoma, lobular Right. takes Arimidex daily CHF (congestive heart failure) Surgical History S/P debridement right breast wound debridement + wound vac + skin graft from a cadaver. (multiple) H/O vascular surgery port-a-cath insertion History of removal of Port-a-Cath Hx of lumpectomy right breast with lymph node removal History of colonoscopy History of cataract surgery bilateral History of coronary artery bypass graft x2 vessels (1994) History of cardiac cath with stent following CABG with one stent. S/P lymph node biopsy right breast & axillary S/P cholecystectomy Laprascopic Family History Father Lung cancer Brother Prostate cancer Myocardial infarction Other No family history of adverse response to anesthesia Denies family history of Colon cancer Ovarian cancer Breast cancer Social History Smoking Status: Former smoker Tobacco Type: Cigarettes Second Hand Exposure: No; Do You Dip or Chew Tobacco: No; Hx Alcohol Use: No Hx Substance Use: No Preferred Language: Kazakh Communication Ability: Effective Visual Impairment: No Limitations Hearing Ability: Normal Sleeping Car Conductor Required: No Beliefs That Will Affect Care: None marital status: / Current Living Situation: Alone current occupational status: retired Feels Safe at Home: Yes Dental Care, Regularly: Yes Physical Activity Frequency: Does not Exercise Seatbelt Use: always Assistive Devices: Cane and Walker Review of Systems Review of Systems: Per HPI/Subjective Physical Exam Physical Exam: General: well-appearing, no acute distress HEENT: PERRL, EOMI, conjunctivae clear without injection, anicteric sclerae, moist mucous membranes, clear oropharynx without exudate or erythema Neck: supple, trachea midline, no thyromegaly, no JVD, no cervical lymphadenopathy CV: RRR, normal S1 and S2, no murmurs Resp: CTAB, no increased work of breathing, no crackles or wheezes Abd: Soft, nontender, nondistended, no guarding or rebound, no hepatosplenomegaly MSK: Normal bulk of all four extremities. Some focal tenderness and mild soft ti ssue swelling over R 5th metatarsal base Neuro: AOx3, no focal motor or sensory deficits. Intact b/l dorsiflexion/plantarflexion + Achilles reflex + intact sensorium Skin: no rashes or lesions, warm and dry Ext: no LE peripheral edema or erythema, capillary refill <2s in all four extremities, 2+ LE peripheral pulses b/l Results & Data Results & Data Vital Signs (Past 12 Hours) Vital Signs Temp Pulse Pulse Resp BP BP Pulse Ox 03/08/23 22:52 73 19 146/88 H 100 03/08/23 20:43 36.8 C 92 H 16 144/75 H 96 O2 Del Method 03/08/23 22:52 Room Air 03/08/23 20:43 Room Air Code Status & VTE Plan VTE Prophylaxis Plan VTE Prophylaxis will be ordered: Yes Supervising Physician Co-Signing Physician Notes I have personally seen, evaluated and examined the patient. I have also personally discussed the management of the patient with the resident physician and I agree with the exam findings documented in the history and physical examination and the documented assessment and plan unless otherwise stated below. Brief exam: Heart: Regular rate and rhythm no appreciable murmur. Lungs: Clear bilaterally. Abdomen soft nontender with positive bowel sounds. Extremities currently in a walking shoe. Good peripheral pulses. Mild varicosities bilaterally. Neurologically completely intact. Assessment/plan: As described above. Probable discharge tomorrow licensed master social worker will be consulted patient does live at home alone. She is concerned about returning home alone. Continue walking shoe. Await official read of ankle x-ray and foot x-ray. Resident Activity Tracking Resident Involvement: Resident Care Provided Care Provided: Adult Hospital Medicine (1) Foot fracture, right Encounter type: initial encounter Fracture type: closed Qualified Code(s): S92.901A - Unspecified fracture of right foot, initial encounter for closed fracture (3) CHF (congestive heart failure) Heart failure chronicity: acute on chronic Heart failure type: combined systolic and diastolic Qualified Code(s): I50.43 - Acute on chronic combined systolic (congestive) and diastolic (congestive) heart failure (4) Breast carcinoma, lobular Laterality: unspecified laterality Qualified Code(s): C50.919 - Malignant neoplasm of unspecified site of unspecified female breast (7) CKD (chronic kidney disease), stage III Chronic kidney disease stage 3 subtype: unspecified whether 3a or 3b Qualified Code(s): N18.30 - Chronic kidney disease, stage 3 unspecified (9) Chronic obstructive pulmonary disease COPD type: unspecified COPD Qualified Code(s): J44.9 - Chronic obstructive pulmonary disease, unspecified (11) GERD (gastroesophageal reflux disease) Esophagitis presence: esophagitis presence not specified Qualified Code(s): K21.9 - Gastro-esophageal reflux disease without esophagitis (12) HTN (hypertension) Hypertension type: essential hypertension Qualified Code(s): I10 - Essential (primary) hypertension
[2023-03-08 23:58] LABS: Anion Gap 10 (3-11); BUN Creatinine Ratio 16.3 (10-20); Blood Urea Nitrogen 14 mg/dl (6-23); Carbon Dioxide 23 mmol/L (21-32); Chloride 104 mmol/L (98-107); Est GFR (African American) 71.4 ml/min; Est GFR (Non-African American) 61.6 ml/min; Glucose 91 mg/dl (70-99(Fasting)); Sodium 137 mmol/L (136-145)
--- NOTE | 2023-03-09 00:35 | Billing Data ---
Date of Service March 09, 2023 Coding Level of Care Code 23778 INT INP/OBS CARE
[2023-03-09] MEDS ORDERED: ALBUTEROL HFA 8 GM INHALER INH PRN (01:18)
[2023-03-09] MEDS ORDERED: GLUCOSE 10 TAB/TUBE PO PRN (01:18)
[2023-03-09] MEDS ORDERED: CARBOHYDRATES FOR HYPOGLYCEMIA PO PRN (01:18)
[2023-03-09] MEDS ORDERED: GLUCOSE 40% GEL 15 GM TUBE PO PRN (01:18)
[2023-03-09] MEDS ORDERED: GLUCAGON FOR INJ 1 MG VIAL SQ PRN (01:18)
[2023-03-09] MEDS ORDERED: DEXTROSE 50% 50 ML SYRINGE IV PRN (01:18)
[2023-03-09] MEDS: DICLOFENAC SOD 1% GEL 100 GM TUBE EXT SCH ×4 (02:17→18:12)
[2023-03-09 04:58] LABS: Hemoglobin 12.3 g/dl (12.0-16.0); Mean Corpuscular Hemoglobin 29.3 pg (25.0-34.0); Mean Corpuscular Hgb Conc 33.2 g/dL (32.0-36.0); Mean Corpuscular Volume 88.1 fL (80.0-100.0); Mean Platelet Volume 9.1 fL (9.4-12.4); Platelet Count 202 K/uL (130-400); RDW Coefficient of Variation 13.5 % (11.5-14.5); RDW Standard Deviation 43.6 fL (36.4-46.3); White Blood Count 5.55 K/ul (4.8-10.8)
[2023-03-09 05:04] LABS: BUN Creatinine Ratio 18.3 (10-20); Calcium 8.4 mg/dl (8.6-10.3); Creatinine Clr Calc Pharmacy 51.9 ml/min; Est GFR (Non-African American) 77.7 ml/min; Potassium 3.7 mmol/L (3.5-5.1)
--- NOTE | 2023-03-09 07:04 | XRay Report ---
RIGHT ANKLE 3 VIEWS CLINICAL HISTORY: Right ankle injury. FINDINGS: 3 views of the right ankle are obtained. No prior studies are available for comparison at t he time of dictation. The skeletal structures are osteopenic. No fracture is seen at the ankle joint. The ankle mortise is intact. There is a minimally displaced fracture through the base of the fifth m etatarsal. An ankle joint effusion is noted. There is significant soft tissue swelling around the dylan t and ankle. Atherosclerotic calcification is seen in the regional arteries. There are small dorsal a nd large plantar heel spurs. Spurring is noted along the dorsal aspect of the tarsal bones. IMPRESSION: 1. Soft tissue swelling with no fracture seen at the ankle joint. 2. Fracture through the base of the fifth metatarsal. Electronically signed by: Kodi Ro M.D. 03/09/2023 7:03 AM
--- NOTE | 2023-03-09 07:12 | XRay Report ---
RIGHT FOOT 3 VIEWS CLINICAL HISTORY: Right foot injury. FINDINGS: 3 views of the right foot are obtained. No prior studies are available for comparison at th e time of dictation. The skeletal structures are osteopenic. There is a minimally displaced fracture through the base of the fifth metatarsal with overlying soft tissue edema. No additional acute fractu re is identified. 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 Milder arthritic change is seen throughout the remainder of the foot. There is a large plantar heel spur. Degenerative spurring is seen along the dorsal aspect of the tarsal bones. Atherosclerotic calcification is observed in the regional arteries. IMPRESSION: Fracture through the base of the fifth metatarsal as above. Electronically signed by: Kodi Ro M.D. 03/09/2023 7:10 AM
[2023-03-09] MEDS: FAMOTIDINE 20 MG TAB PO SCH (08:17)
[2023-03-09] MEDS: APIXABAN 5 MG TABLET PO SCH ×2 (08:17→21:08)
[2023-03-09] MEDS: ANASTROZOLE 1 MG TAB PO SCH (08:17)
[2023-03-09] MEDS: METOPROLOL SUCC 50MG EXT REL TAB PO SCH ×2 (08:17→21:07)
[2023-03-09] MEDS: lisinopril 2.5 MG TAB PO SCH (08:17)
[2023-03-09] MEDS: FLUTICASONE/VILANTEROL 100/25MCG 14 PUFFS/INHALER INH SCH (08:18)
[2023-03-09] MEDS: FUROSEMIDE 20 MG TAB PO SCH (08:18)
[2023-03-09] MEDS: INSULIN ASPART PER UNIT CHARGE SC SCH ×4 (08:19→21:40)
[2023-03-09] MEDS: LANTUS PER UNIT CHARGE SQ SCH ×2 (08:23→21:39)
[2023-03-09] MEDS: ACETAMINOPHEN 325 MG TAB PO PRN (08:23)
--- OUTSIDE RECORDS SUMMARY | 2023-03-09 08:42 | External Medical Summary | Summary of Care ---
Author Name Unknown Organization [facility] Address [address] [place] [address] Phone [phone] Care Team Providers Care Pharmacy Technology Instructor Name Role Phone ProLucian MD Primary Care Provider [phone] Encounter Details Date Type Department Care Team Description 09/20/2022 Orders Only Outcomes Research Department [address] [place] [address] Jacki Alba CHRA PT [employer] Research Other*[id number] Allergies Active Allergy Reactions Severity Noted Date Comments Nitroglycerin Hypotension Low 07/01/2003 documented as of this encounter (statuses as of 09/20/2022) Medications Medication Sig Dispensed Refills Start Date End Date Status ASPIRIN 81 MG PO CHEW take one tablet daily 34 5 03/05/2005 Active CALCIUM 600 + D 600-200 MG-UNIT PO TABSIndications:Esoph ageal reflux Take 1 Tab by mouth daily. 60 0 06/08/2006 Active PROAIR HFA 108 (90 Base) MCG/ACT inhaler Inhale 2 Puffs by mouth every 4 hours as needed. 0 09/14/2016 Active anastrozole (ARIMIDEX) 1 MG Tablet Take 1 Tablet by mouth in the morning. 0 04/15/2017 Active SANTYL 250 UNIT/GM ointment 0 03/18/2017 Active Potassium Chloride ER 20 MEQ TBCRIndications:Hypok alemia Take 1 Tablet by mouth in the morning. 30 Tab 5 05/04/2017 Active Apixaban 5 MG Oral Tablet Take 1 Tablet by mouth in the morning and 1 Tablet before bedtime. 0 Active Advair HFA 230-21 MCG/ACT Inhalation Aerosol Inhale 1 Puff by mouth in the morning and 1 Puff before bedtime. 0 02/11/2021 Active Rosuvastatin Calcium 40 MG Oral Tablet (Crestor)Indications: ASCVD (arteriosclerotic cardiovascular disease),Dyslipidemia , goal LDL below 100 TAKE ONE TABLET BY MOUTH ONE TIME DAILY 90 Tablet 3 12/01/2021 Active Famotidine 20 MG Oral Tablet (Pepcid) TAKE ONE TABLET BY MOUTH AT BEDTIME 90 Tablet 0 01/18/2022 Active Lisinopril 2.5 MG Oral Tablet (Prinivil) Take 1 Tablet by mouth in the morning. 0 Active Metoclopramide HCl 5 MG Oral Tablet (Reglan) One tab before breakfast and supper. 60 Tablet 12 03/25/2022 Active Furosemide 20 MG Oral Tablet (Lasix)Indications: CVD (arteriosclerotic cardiovascular disease),HTN, goal below 140/90,Mitral valve regurgitation, ischemic Take 1 Tablet by mouth in the morning. 90 Tablet 3 05/13/2022 Active Metoprolol Succinate ER 50 MG Oral Tablet Extended Release 24 Hour (toPROL XL) Take 1 Tablet by mouth in the morning and 1 Tablet before bedtime. Two times daily. 180 Tablet 3 05/13/2022 Active documented as of this encounter (statuses as of 09/20/2022) Active Problems Problem Noted Date Pulmonary embolism 07/01/2014 Overview: ICD-10 update of inactive term Carotid stenosis, non-symptomatic 2011 BMI 35-39 ISOLATED (SEE ACTUAL BMI) 08/26 Overview: Per Obesity Protocol, #19 DYSLIPIDEMIA, GOAL LDL BELOW 100 009 Overview: Per Lipid Taxonomy. HTN, GOAL BELOW 140/90 02/17/2009 Overview: Modified per HTN protocol #16. Gastroparesis 06/07/2008 Mitral valve regurgitation, ischemic Overview: trace to mild Other specified gastritis without mentio n of hemorrhage 05/25/2006 Overview: mild chronic gastritis and extensive intestinal metaplasia Diverticulitis of small intestine with h emorrhage 11/09/2005 Overview: simoid mild HELICOBACTER PYLORI (H. 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 HYPERTENSION NOS 04/02/2005 02/17/2009 Overview: Modified per HTN protocol #16. documented as of this encounter (statuses as of 09/20/2022) Immunizations Name Administration Dates Next Due COVID-19 mRNA, LNP-s, No Pre serve, 2-Dose Series ([employer]) 02/05/2021,06/10/2020,05/20/2020 Pneumococcal Polysaccharide PPV23 (Pneumovax) 10/09/2007,10/09/2007 Seasonal Influenza, Quadriva lent Hd, 65+ Yrs 01/01/2021 Seasonal Influenza, Split, I IV3, With Preserve, Inj 12/25/2013,12/19/2012,01/15/2012,01/09 Varicella Zoster Vaccine (Adult) 08/25/2012 documented as of this encounter Social History Tobacco Use Types Packs/Day Years Used Date Smoking Tobacco: Never Smokeless Tobacco: Never Alcohol Use Standard Drinks/Week Comments No 0 (1 standard drink = 0.6 oz pur e alcohol) Sex Assigned at Date Recorded Not on file Job Start Date Occupation Industry Not on file Not on file Not on file documented as of this encounter Plan of Treatment Upcoming Encounters Date Type Specialty Care Team Description 11/23/2022 Office Visit Cardiology Bebo Viera O, DO [address] [place] [address] 03/07/2023 Imaging Radiology Scheduled Orders Name Type Priority Associated Diagnoses Orde r Schedule MYCODE INITIAL ADULT Lab Routine [employer] Research Other*[id number] Expected: 09/20/2022 (Approximate), Expires: 10/10/2023 Health Maintenance Due Date Last Done Comments DXA Scan 1935 Depression Screening, Annual for Pts 12 and Over 1949 DTaP,Tdap,and Td Vaccines (1 - Tdap) 1956 Pneumococcal Vaccine: 65+ Years (2 - PCV) 10/08/2008 10/09/2007, 10/09/2007 Zoster Vaccines (2 of 3) 10/20/2012 08/25/2012 Albumin/Creatinine Ratio 04/09/2017 015, 10/03/2013, 03/30/2012 COVID-19 Vaccine (4 - Pfizer series) 04/02/2021 02/05/2021, 06/10/2020, 05/20/2020 GFR 04/28/2022 04/28/2021, 0707/2017, 05/13/2017, Additional history exists Influenza Vaccine (FLU shot) (Season Ended) 2022 01/01/2021, 12/25/2013, 12/19/2012, Additional history exists GARDASIL-HPV IMMUNIZATION SERIES Aged Out No longer eligible based on patient's age to complete this topic Hepatitis B Aged Out No longer eligi ble based on patient's age to complete this topic MENINGOCOCCAL (MENACTRA/MENVEO) Aged Out No longer eligible based on patient's age to complete this topic documented as of this encounter Medical Devices Not on filedocumented as of this encounter Visit Diagnoses Diagnosis [employer] Research Other*[id number] documented in this encounter Care Teams Pharmacy Technology Instructor Relationship Specialty Start Date End Date Pro, Lucian Flores MD [address] [place] [address] PCP - General Internal Medicine 03/11/14 documented as of this encounter
--- OUTSIDE RECORDS SUMMARY | 2023-03-09 08:42 | External Medical Summary | Summary of Care ---
Author Name Unknown Organization [facility] Address [address] [facility] [place] [address] Phone [phone] Care Team Providers Care Apiculturist Name Role Phone Lucian Noe MD Primary Care Provider [phone]- [phone] Reason for Visit * Reason Comments eRx-Medication Refill Encounter Details Date Type Department Care Team Description 11/22/2022 Refill Gastroenterology, [facility] [address] [place] [address] Maria Eugenia Lagunas CRNP [address] [place] [address] Allergies Active Allergy Reactions Severity Noted Date Comments Nitroglycerin Hypotension Low 07/01/2003 documented as of this encounter (statuses as of 11/22/2022) Medications Medication Sig Dispensed Refills Start Date End Date Status ASPIRIN 81 MG PO CHEW take one tablet daily 34 5 03/05/2005 Active CALCIUM 600 + D 600-200 MG-UNIT PO TABSIndications:Eso phageal reflux Take 1 Tab by mouth daily. 60 0 06/08/2006 Active PROAIR HFA 108 (90 Base) MCG/ACT inhaler Inhale 2 Puffs by mouth every 4 hours as needed. 0 09/14/2016 Active anastrozole (ARIMIDEX) 1 MG Tablet Take 1 Tablet by mouth in the morning. 0 04/15/2017 Active SANTYL 250 UNIT/GM ointment 0 03/18/2017 Active Potassium Chloride ER 20 MEQ TBCRIndications:Hyp okalemia Take 1 Tablet by mouth in the morning. 30 Tab 5 05/04/2017 Active Apixaban 5 MG Oral Tablet Take 1 Tablet by mouth in the morning and 1 Tablet before bedtime. 0 Active Advair HFA 230-21 MCG/ACT Inhalation Aerosol Inhale 1 Puff by mouth in the morning and 1 Puff before bedtime. 0 02/11/2021 Active Rosuvastatin Calcium 40 MG Oral Tablet (Crestor)Indication s:ASCVD (arteriosclerotic cardiovascular disease),Dyslipidem ia, goal LDL below 100 TAKE ONE TABLET BY MOUTH ONE TIME DAILY 90 Tablet 3 12/01/2021 Active Famotidine 20 MG Oral Tablet (Pepcid) TAKE ONE TABLET BY MOUTH AT BEDTIME 90 Tablet 0 01/18/2022 Active Lisinopril 2.5 MG Oral Tablet (Prinivil) Take 1 Tablet by mouth in the morning. 0 Active Furosemide 20 MG Oral Tablet (Lasix)Indications: ASCVD (arteriosclerotic cardiovascular disease),HTN, goal below 140/90,Mitral valve regurgitation, ischemic Take 1 Tablet by mouth in the morning. 90 Tablet 3 05/13/2022 Active Metoprolol Succinate ER 50 MG Oral Tablet Extended Release 24 Hour (toPROL XL) Take 1 Tablet by mouth in the morning and 1 Tablet before bedtime. Two times daily. 180 Tablet 3 05/13/2022 Active Metoclopramide HCl 5 MG Oral Tablet (Reglan) take 1 tablet before breakfast and before dinner 60 Tablet 11 11/22/2022 Active Metoclopramide HCl 5 MG Oral Tablet (Reglan) One tab before breakfast and supper. 60 Tablet 12 03/25/2022 11/23/19 23 Discontinued documented as of this encounter (statuses as of 11/22/2022) Active Problems Problem Noted Date Pulmonary embolism [...] as of this encounter (statuses as of 11/22/2022) Resolved Problems Problem Noted Date Resolved Date Dyslipidemia, goal to be determined 04/02/2005 03/13/2009 Overview: Per Lipid Taxonomy. HYPERTENSION NOS 04/02/2005 02/17/2009 Overview: Modified per HTN protocol #16. documented as of this encounter (statuses as of 11/22/2022) Immunizations Name Administration Dates Next Due COVID-19 mRNA, LNP-s, No Pre serve, 2-Dose Series ([employer]) 02/05/2021,06/10/2020,05/20/2020 Pneumococcal Polysaccharide PPV23 (Pneumovax) 10/09/2007,10/09/2007 Seasonal [...] on file documented as of this encounter Miscellaneous Notes * Telephone Encounter - Cecilia Lee, [facility] - 11/22/2022 4:08 PM EDTSigned Prescriptions: Disp Refills Metoclopramide HCl 5 MG Oral Tablet (Marine*60 Tab*11 Sig: take 1tablet before breakfast and before dinnerAuthorizing Provider: MARIA EUGENIA LAGUNAS User: CECILIA LEE documented in this encounter Plan of Treatment Upcoming Encounters Date Type Specialty Care Team Description 01/19/2023 Office Visit Cardiology Yolie Quintana CRNP [address] [place] [address] 03/07/2023 Imaging Radiology Health Maintenance Due Date Last Done Comments DXA Scan 1937 Depression Screening, Annual for Pts 12 and Over 1949 DTaP,Tdap,and Td Vaccines (1 - Tdap) 1956 Pneumococcal Vaccine: 65+ Years (2 - PCV) 10/08/2008 10/09/2007, 10/09/2007 Zoster Vaccines (2 of 3) 10/20/2012 08/25/2012 Albumin/Creatinine Ratio 04/09/2017 015, 10/03/2013, 03/30/2012 COVID-19 Vaccine (4 - Pfizer series) 04/02/2021 02/05/2021, 06/10/2020, 05/20/2020 GFR 04/28/2022 04/28/2021, 07/2017, 05/13/2017, Additional history exists Influenza Vaccine (FLU shot) (#1) 2022 01/01/2021, 12/25/2013, 12/19/2012, Additional history exists [...] Not on filedocumented as of this encounter Care Teams Apiculturist Relationship Specialty Start Date End Date Pro, Lucian Flores MD [address] [place] [address] PCP - General Internal Medicine 03/11/14 documented as of this encounter
--- OUTSIDE RECORDS SUMMARY | 2023-03-09 08:42 | External Medical Summary | Summary of Care ---
Author Name Unknown Organization [facility] Address [address] [facility] [place] [address] Phone [phone] Care Team Providers Care Parcel Post Weigher Name Role Phone Lucian Noe MD Primary Care Provider [phone]- [phone] Reason for Visit * Reason Comments eRx-Medication Refill Encounter Details Date Type Department Care Team Description 12/13/2022 Refill Cardiology, [facility] [address] [place] [address] Bebo Viera, [address] [place] [address] ASCVD (arteriosclerotic cardiovascular disease); Dyslipidemia, goal LDL below 100 Allergies Active Allergy Reactions Severity Noted Date Comments Nitroglycerin Hypotension Low 07/01/2003 documented as of this encounter (statuses as of 12/13/2022) Medications Medication Sig Dispensed Refills Start Date [...] 1 Puff before bedtime. 0 02/11/2021 Active Famotidine 20 MG Oral Tablet (Pepcid) [...] before dinner 60 Tablet 11 11/22/2022 Active Rosuvastatin Calcium 40 MG Oral Tablet (Crestor)Indication s:ASCVD (arteriosclerotic cardiovascular disease),Dyslipidem ia, goal LDL below 100 take 1 tablet by mouth once daily 90 Tablet 3 12/13/2022 Active Rosuvastatin Calcium 40 MG Oral Tablet (Crestor)Indication s:ASCVD (arteriosclerotic cardiovascular disease),Dyslipidem ia, goal LDL below 100 TAKE ONE TABLET BY MOUTH ONE TIME DAILY 90 Tablet 3 12/01/2021 12/14/19 23 Discontinued documented as of this encounter (statuses as of 12/13/2022) Active Problems Problem Noted Date Pulmonary embolism [...] as of this encounter (statuses as of 12/13/2022) Resolved Problems Problem Noted Date Resolved Date Dyslipidemia, goal to be determined 04/02/2005 03/13/2009 Overview: Per Lipid Taxonomy. HYPERTENSION NOS 04/02/2005 02/17/2009 Overview: Modified per HTN protocol #16. documented as of this encounter (statuses as of 12/13/2022) Immunizations Name Administration Dates Next Due COVID-19 mRNA, LNP-s, No Pre serve, 2-Dose Series ([employer]) 02/05/2021,06/10/2020,05/20/2020 Pneumococcal Polysaccharide PPV23 (Pneumovax) 10/09/2007,10/09/2007 Seasonal [...] encounter Miscellaneous Notes * Telephone Encounter - Albert Reeves PA-C - 12/13/2022 11:05 AM EDTSigned Prescriptions: Disp Refills Rosuvastatin Calcium 40 MG Oral Tablet (Cr*90 Tab*3 Sig: take 1 tablet by mouth once daily Authorizing Provider: ALBERT REEVES * Telephone Encounter - NADJA Biswas - 12/13/2022 10:13 AM EDTPending Prescriptions: Disp Refills Rosuvastatin Calcium 40 MG Oral Tablet (Cr*90 Tab*3 Sig: take 1 tablet by mouth once daily * Telephone Encounter - NADJA Biswas - 12/13/2022 10:13 AM EDT Did you pend patient's preferred pharmacy and medication before forwarding?yes Pharmacy: [id number] Pending Prescriptions: Disp Refills Rosuvastatin Calcium 40 MG Oral Tablet (C*90 Tab*3 Sig: take 1 tablet by mouth once daily Last Visit: 11/26/2022 (in office), Visit date not found (telemedicine) Next Visit: 01/19/2023 If no future appointments scheduled, and last appointment is greater than a year ago, please schedule patient for a follow-up appointment Last date the medication was ordered: 12-01-2021 Is this request for a controlled substance?No Urine Drug Screen:No results found for this or any previous visit. Patient Phone Numbers Labs: Lab Results Component Value Date/Time CREAT 0.93 04/28/2021 12:00 AM CREAT 1.0 09/29/2017 10:03 AM POTASSIUM 4.5 04/28/2021 12:00 AM POTASSIUM 4.9 09/29/2017 10:03 AM TSH 2.906 04/28/2021 12:00 AM TSH 3.96 12/14/2010 09:48 AM LDLCALC 58 04/28/2021 12:00 AM LDLCALC 64 04/09/2014 10:03 AM LDLDIRECT 71 05/24/2011 09:49 AM ALT 39 (H) 04/09/2014 10:03 AM HGBA1C 7.1 (H) 04/09/2014 10:03 AM documented in this encounter Plan of Treatment Upcoming Encounters Date Type Specialty Care Team Description 01/19/2023 Office Visit Cardiology Yolie Quintana CRNP [address] [place] [address] 03/07/2023 Imaging Radiology Health Maintenance Due Date Last Done Comments DXA Scan 1935 Depression Screening 1949 DTaP,Tdap,and Td Vaccines (1 - Tdap) 1954 Pneumococcal Vaccine: 65+ Years (2 - PCV) 10/08/2008 10/09/2007, 10/09/2007 Zoster Vaccines (2 of 3) 10/20/2012 08/25/2012 Albumin/Creatinine Ratio 04/09/2017 015, 10/03/2013, 03/30/2012 COVID-19 Vaccine (4 - Pfizer series) 04/02/2021 02/05/2021, 06/10/2020, 05/20/2020 Influenza Vaccine (FLU shot) (#1) 2022 01/01/2021, [...] as of this encounter Visit Diagnoses Diagnosis ASCVD (arteriosclerotic cardiovascular disease) Unspecified cardiovascular disease Dyslipidemia, goal LDL below 100 Other and unspecified hyperlipidemia documented in this encounter Care Teams Parcel Post Weigher Relationship Specialty Start Date End Date Pro, Lucian Flores MD [address] [place] [address] PCP - General Internal Medicine 03/11/14 documented as of this encounter
--- OUTSIDE RECORDS SUMMARY | 2023-03-09 08:42 | External Medical Summary | Summary of Care ---
Author Name Unknown Organization [facility] Address [address] [facility] [place] [address] Phone [phone] Care Team Providers Care Gun Perforator Loader Name Role Phone Lucian Noe MD Primary Care Provider [phone] Reason for Visit * Reason Comments Follow Up Encounter Details Date Type Department Care Team (Late st Contact Info) Description 01/19/2023 3:00 PM EDT Office Visit Cardiology, [facility] [address] [place] [address] Yolie Quintana CRNP [address] [place] [address] ASCVD (arteriosclerotic cardiovascular disease)*; Ischemic cardiomyopathy; Chronic systolic CHF (congestive heart failure) (HCC); HTN, goal below 140/90; DYSLIPIDEMIA, GOAL LDL BELOW 100; Carotid stenosis, non-symptomatic, right; Mitral valve regurgitation, ischemic Allergies Active Allergy Reactions Criticality Noted Date Comments Nitroglycerin Hypotension Low 07/01/2003 documented as of this encounter (statuses as of 01/21/2023) Medications Medication Sig Dispensed Refills Start Date [...] cardiovascular disease),Dyslipidemia , goal LDL below 100 take 1 tablet by mouth once daily 90 Tablet 3 12/13/2022 Active documented as of this encounter (statuses as of 01/21/2023) Active Problems Problem Noted Date Diagnosed Date Pulmonary embolism 07/01/2014 Overview: ICD-10 update of inactive term Carotid stenosis, non-symptomatic 12/16/2011 BMI 35-39 ISOLATED (SEE ACTUAL BMI) 09/08/2009 Overview: Per Obesity Protocol, #19 DYSLIPIDEMIA, GOAL LDL BELOW 100 03/13/2009 Overview: Per Lipid Taxonomy. HTN, GOAL BELOW 140/90 02/17/2009 Overview: Modified per HTN protocol #16. Gastroparesis 06/07/2008 Mitral valve regurgitation, ischemic 06/21/2006 Overview: trace to mild Other specified gastritis without mention of hem orrhage 05/25/2006 Overview: mild chronic gastritis and extensive intestinal metaplasia Diverticulitis of small intestine with hemorrhag e 11/09/2005 Overview: simoid mild HELICOBACTER PYLORI (H. PYLORI) INFECTION 2005 DEEP PHLEBITIS-LEG NEC 04/02/2005 Esophageal reflux 04/02/2005 CHR ISCHEMIC HRT DIS NOS 04/02/2005 Old myocardial infarct ASCVD (arteriosclerotic cardiovascular disease) documented as of this encounter (statuses as of 01/21/2023) Resolved Problems Problem Noted Date Diagnosed Date Resolved Date Dyslipidemia, goal to be determined 04/02/2005 03/13/2009 Overview: Per Lipid Taxonomy. HYPERTENSION NOS 04/02/2005 02/17/2009 Overview: Modified per HTN protocol #16. documented as of this encounter (statuses as of 01/21/2023) Immunizations Name Administration Dates Next Due COVID-19 mRNA, LNP-s, No Pre serve, 2-Dose Series ([facility]) 02/05/2021,06/10/2020,05/20/2020 Pneumococcal Polysaccharide PPV23 (Pneumovax) 10/09/2007,10/09/2007 Seasonal [...] = 0.6 oz pur e alcohol) Sex and Gender Information Value Date Recorded Sex Assigned at Not on file Gender Identity Not on file Sexual Orientation Not on file Job Start Date Occupation Industry Not on file Not on file Not on file documented as of this encounter Last Filed Vital Signs Vital Sign Reading Time Taken Comments Blood Pressure 120/74 01/19/2023 3:01 PM EDT Pulse 80 01/19/2023 3:01 PM EDT Temperature - - Respiratory Rate 20 01/19/2023 3:01 PM EDT Oxygen Saturation - - Inhaled Oxygen Concentration - - Weight 73.9 kg (163 lb) 01/19/2023 3:01 PM EDT Height - - Body Mass Index 32.92 01/05/2021 1:55 PM EDT documented in this encounter Progress Notes * Yolie Quintana CRNP - 01/19/2023 3:13 PM EDT 01/19/2023 Cardiology Follow Up Primary Gl Accountant: Dr. 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 Mild-Moderate asymptomatic carotid artery stenosis Hypertension Dyslipidemia, LDL goal below 70 Former tobacco use Type 2 diabetes Gastroparesis Stage III chronic kidney disease Anemia Breast cancer COPD GERD HPI: Phill Valdez is a 87 year old female presents for routine cardiology follow up/ ER follow up. Last seen in our office by Deric Elizabeth PA-C 11/26/2022 Patient presents today feeling well. She was recently seen in the ER after sustaining a left rib fracture attempting to reach a small item in the bottom of her washing machine. Reports that she is not super active due to her arthritis. She endorses chronic shortness of breath, nothing new or worsening. Denies any chest pain, pressure or palpitations BP well controlled today. Follows with PCP through [facility], will need most recent labs. Reports compliance on all medication therapies with no untoward effects. REVIEW OF SYSTEMS: See HPI for pertinent positives. All others negative other than those noted in the HPI. CONSTITUTIONAL: No change in weight, No weakness, No fatigue and No fevers, No sweats or chills. PULMONARY: No cough, sputum, or hemoptysis, No wheezing, No shortness or breath and No recent change in breathing. CARDIOVASCULAR: No chest pain, No dyspnea on exertion, No edema, No palpitations and No syncope. GASTROINTESTINAL: No abdominal pain, No change in bowel habits, No significant heartburn, No nausea, No vomiting, No diarrhea, No constipation, No blood in stools or black tarry stools. No dysphagia. HEMATOLOGIC: No abnormal bleeding and No bruising. NEUROLOGICAL: Normal balance, No headaches and No weakness. Review of patient's allergies indicates: Allergen Reactions Nitroglycerin Hypotension Current Outpatient Medications Medication Sig Dispense Refill ASPIRIN 81 MG PO CHEW take one tablet daily 34 5 CALCIUM 600 + D 600-200 MG-UNIT PO TABS Take 1 Tab by mouth daily. 60 0 PROAIR HFA 108 (90 Base) MCG/ACT inhaler Inhale 2 Puffs by mouth every 4 hours as needed. anastrozole (ARIMIDEX) 1 MG Tablet Take 1 Tablet by mouth in the morning. SANTYL 250 UNIT/GM ointment Potassium Chloride ER 20 MEQ TBCR Take 1 Tablet by mouth in the morning. 30 Tab 5 Apixaban 5 MG Oral Tablet Take 1 Tablet by mouth in the morning and 1 Tablet before bedtime. Advair HFA 230-21 MCG/ACT Inhalation Aerosol Inhale 1 Puff by mouth in the morning and 1 Puff before bedtime. Famotidine 20 MG Oral Tablet (Pepcid) TAKE ONE TABLET BY MOUTH AT BEDTIME 90 Tablet 0 Lisinopril 2.5 MG Oral Tablet (Prinivil) Take 1 Tablet by mouth in the morning. Furosemide 20 MG Oral Tablet (Lasix) Take 1 Tablet by mouth in the morning. 90 Tablet 3 Metoprolol Succinate ER 50 MG Oral Tablet Extended Release 24 Hour (toPROL XL) Take 1 Tablet by mouth in the morning and 1 Tablet before bedtime. Two times daily. 180 Tablet 3 Metoclopramide HCl 5 MG Oral Tablet (Reglan) take 1 tablet before breakfast and before dinner 60 Tablet 11 Rosuvastatin Calcium 40 MG Oral Tablet (Crestor) take 1 tablet by mouth once daily 90 Tablet 3 No current facility-administered medications for this visit. Past Medical History: Diagnosis Date ASCVD (arteriosclerotic cardiovascular disease) ASCVD (arteriosclerotic cardiovascular disease) Benign neoplasm of colon 2007 hyperplastic polyps. repeat 2017 Diverticulitis of small intestine with hemorrhage 11/09/05 simoid mild Dyslipidemia, goal to be determined GERD (gastroesophageal reflux disease) repeat EGD 2009 HTN, goal below 140/90 Mitral valve regurgitation, ischemic 06/21/06 trace to mild Old myocardial infarct 1994 and 1999 Other specified gastritis without mention of hemorrhage 05/25/06 mild chronic gastritis and extensive intestinal metaplasia Phlebitis and thrombophlebitis Pulmonary embolus (HCC) mult bilat in lower lobes Pyelonephritis 11/08/05 Status asthmaticus Family History Problem Relation Age of Onset Diabetes Mother Diabetes Other Hypertension Other Stroke Sister and dementia Stroke Brother No Past Hx Daughter No Past Hx Daughter Social History Socioeconomic History Marital status: Number of children: 2 Occupational History Occupation: retired Employer: [employer] Tobacco Use Smoking status: Never Smokeless tobacco: Never Vaping Use Vaping Use: Never used Substance and Sexual Activity Alcohol use: No Drug use: No Sexual activity: Not Currently Other Topics Concern Blood Transfusions No Comment: 2 units Caffeine Concern No Sleep Concern No Special Diet Yes Comment: gastroparesis diet Seat Belt Yes OBJECTIVE/PHYSICAL EXAMINATION: BP 120/74 | Pulse 80 | Resp 20 | Wt 73.9 kg (163 lb) | BMI 32.92 kg/m | BSA 1.75 m General: No acute distress. A+Ox3. HEENT: Normocephalic. Atraumatic. PERRL. EOMI. Conjunctiva and sclera clear. NECK: No carotid bruits. No JVD. Carotid upstrokes are brisk. Heart: RRR. S1 and S2 noted. No murmur. No rubs or gallops. PMI non displaced. Lungs: Clear to auscultation. No wheezes.No rhonchi. No rales. Abdomen: Normal bowel sounds. Soft. Nontender. No masses or organomegaly. No abdominal bruits. Extremities: No edema. No clubbing or cyanosis. Pulses: radial=2/4, posterior tibial=2/4, dorsalis pedis = 2/4. NEURO: No focal deficits. PSYCH: Appropriate affect and insight. DATA Labs & Imaging Reviewed Below: Carotid duplex 02/2022: Right carotid artery duplex examination indicates evidence of less than 50%stenosis of the internal carotid artery. Left carotid artery duplex examination indicates evidence of less than 50% stenosis of the internal carotid artery. July 07, 2022 TTE Interpretation Summary (as per Dr. Torres): The qualitative LV ejection fraction is 45-49% (mildly reduced). The right ventricular systolic function is qualitatively normal. The right ventricular cavity size is normal (basal dimension < 4.2 cm RV apical 4 chamber view). Mild mitral regurgitation is present. Laboratory work performed through PCP on November 17, 2022 personally reviewed - CBC: Normal WBC count, 5.85. Normal H&H, 14.9 and 45.9. Platelet count 164 K. - Metabolic panel: Sodium 142. Potassium 4.9. Chloride 109. Bicarb 23. BUN 12. Creatinine 0.74. Hemoglobin A1c 5.7%. Calcium 9.2. Iron 54. AST 25. ALT 19. Alk- phos 94 - Lipid panel: Total cholesterol 136. HDL 60. LDL 45. Triglycerides 156. ASSESSMENT/PLAN: 87 year old year old female 1. ASCVD (arteriosclerotic cardiovascular disease) -Doing well from a cardiac standpoint. Functional capacity is limited s/t arthritis -Continue GDMT with Toprol xl, ASA 81mg , Lisinopril, and Crestor 2. Ischemic cardiomyopathy -Recent echo shows stable LVEF 40-45% -Continue Toprol xl and Lisinopril as part of HF regimen 3. Chronic systolic CHF (congestive heart failure) (HCC) -Euvolemic on physical exam. -Continue Furosemide (with potassium supplementation), Toprol xl, and Lisinopril as part of HF regimen -Recent echo as noted above, repeat on yearly basis for surveillance 4. HTN, goal below 140/90 -At target -Continue Toprol xl, Furosemide, Lisinopril 5. DYSLIPIDEMIA, GOAL LDL BELOW 100 -Labs to be obtained from [facility] [place] -Continue Crestor 6. Carotid stenosis, non-symptomatic, right -Most recent carotid duplex as noted above less than 50% bilaterally -Assess every one to two years 7. Mitral valve regurgitation, ischemic -As noted above, mild mitral insufficiency on echo 06/2022, repeat echo yearly for surveillance. -No change or decline in functional capacity from a cardiac standpoint DISPOSITION: Follow up 6 months or if symptoms worsen/fail to improve. All questions were answered to the patients satisfaction. Patient advised to report to ED with any and all emergencies. The patient agrees to the above plan and will call with additional questions or concerns. [facility] [place] [facility], [facility] [address] [facility] [place] [address] I spent a total of 33 minutes on the date of service in preparation, delivery, and documentation ofthe care provided to Phill Valdez excluding any time spent in the performance of separately billed services. This chart was completed in part utilizing [employer] Voice Recognition Software. Grammatical errors, random word insertions, pronoun errors, and incomplete sentences are an occasional consequence of this system due to software limitations, ambient noise, and hardware issues. Any formal questions or concerns about the content, text, or information contained within the body of this dictation should be directly addressed to the provider for clarification. documented in this encounter Plan of Treatment Upcoming Encounters Date Type Department Care Team (Late st Contact Info) Description 03/07/2023 11:00 AM EST Imaging Vascular Lab, [facility] II 2nd Floor, [address] [place] [address] 07/26/2023 3:30 PM EDT Office Visit Cardiology, [address] [place] [address] Yolie Quintana CRNP [address] [facility] [place] [address] Health Maintenance Due Date Last Done Comments DXA Scan 1935 Depression Screening 1949 DTaP,Tdap,and Td Vaccines (1 - Tdap) 1954 Pneumococcal Vaccine: 65+ Years (2 - PCV) 10/08/2008 10/09/2007, 10/09/2007 Zoster Vaccines (2 of 3) 10/20/2012 08/25/2012 Albumin/Creatinine Ratio 04/09/2017 015, 10/03/2013, 03/30/2012 COVID-19 Vaccine ( season) 2022 02/05/2021, 06/10/2020, 05/20/2020 Influenza Vaccine (FLU shot) [...] encounter Visit Diagnoses Diagnosis ASCVD (arteriosclerotic cardiovascular disease)- Primary Unspecified cardiovascular disease Ischemic cardiomyopathy Other specified forms of chronic ischemic heart disease Chronic systolic CHF (congestive heart failure) (HCC) Chronic systolic heart failure HTN, goal below 140/90 Unspecified essential hypertension DYSLIPIDEMIA, GOAL LDL BELOW 100 Other and unspecified hyperlipidemia Carotid stenosis, non-symptomatic, right Mitral valve regurgitation, ischemic Mitral valve disorders documented in this encounter Care Teams Gun Perforator Loader Relationship Specialty Start Date End Date Pro, Lucian Flores MD [address] [place] [address] PCP - General Internal Medicine 03/11/14 documented as of this encounter"
--- OUTSIDE RECORDS SUMMARY | 2023-03-09 08:42 | External Medical Summary | Summary of Care ---
Author Name Unknown Organization [facility] Address [address] [place] [address] Phone [phone] Care Team Providers Care Tool Straightener Name Role Phone , Lucian Flores MD Primary Care Provider [phone] Reason for Visit * Reason Onset Date Comments Follow Up 6 1/2 month foll ow up. SOB with exertion like walking a long distance. Edema in LE no worse then prior. Denies chest pain, palpitations and dizziness. Medication Administration 11/26/2022 Flu an d/or Pneumo Inj Encounter Details Date Type Department Care Team Description 11/26/2022 Office Visit Cardiology, [facility] [address] [place] [address] Deric Elizabeth PA-C [address] [place] [id number] Need for prophylactic vaccination and inoculation against influenza*; Chronic systolic CHF (congestive heart failure) (HCC); Ischemic cardiomyopathy; Carotid stenosis, non-symptomatic, right; Pulmonary embolism, other, unspecified chronicity, unspecified whether acute cor pulmonale present (HCC); ASCVD (arteriosclerotic cardiovascular disease); HTN, goal below 140/90 Allergies Active Allergy Reactions Severity Noted Date Comments Nitroglycerin Hypotension Low 07/01/2003 documented as of this encounter (statuses as of 11/26/2022) Medications Medication Sig Dispensed Refills Start Date [...] before dinner 60 Tablet 11 11/22/2022 Active documented as of this encounter (statuses as of 11/26/2022) Active Problems Problem Noted Date Pulmonary embolism [...] as of this encounter (statuses as of 11/26/2022) Resolved Problems Problem Noted Date Resolved Date Dyslipidemia, goal to be determined 04/02/2005 03/13/2009 Overview: Per Lipid Taxonomy. HYPERTENSION NOS 04/02/2005 02/17/2009 Overview: Modified per HTN protocol #16. documented as of this encounter (statuses as of 11/26/2022) Immunizations Name Administration Dates Next Due COVID-19 mRNA, LNP-s, No Pre serve, 2-Dose Series ([employer]) 02/05/2021,06/10/2020,05/20/2020 Pneumococcal Polysaccharide PPV23 (Pneumovax) 10/09/2007,10/09/2007 Seasonal [...] Sign Reading Time Taken Comments Blood Pressure 142/78 11/26/2022 2:25 PM EDT Pulse 80 11/26/2022 2:25 PM EDT Temperature - - Respiratory Rate 16 11/26/2022 2:25 PM EDT Oxygen Saturation - - Inhaled Oxygen Concentration - - Weight 74.5 kg (164 lb 4 oz) 11/26/2022 2:25 PM EDT Height - - Body Mass Index 33.17 01/05/2021 1:55 PM EDT documented in this encounter Patient Instructions * Patient Instructions* Jim Hurst LPN - 11/26/2022 2:26 PM EDT ~~PATIENT INSTRUCTIONS FOR FLU SHOT~~ Possible side effects of influenza vaccine, (flu shot), are usually mild and include: 1. Soreness or redness at injection site 2. Low grade fever 3. Body aches You may use Tylenol/Acetaminophen as needed for these symptoms. LET YOUR DOCTOR KNOW IMMEDIATELY IF YOU HAVE DIFFICULTY BREATHING OR SWALLOWING, EXPERIENCE ITCHINGOF FEET OR HANDS, HAVE SWELLING OF EYES, FACE OR INSIDE OF NOSE. documented in this encounter Progress Notes * Deric Elizabeth PA-C - 11/26/2022 2:30 PM EDT History of Present Illness: Phill Valdez is a 86 year old female followed by Dr. Viera and Ms. Hernandez. I have not seen this patient since 2009. No chest pain. No sublingual nitroglycerin use. No tachypalpitations. Stable shortness of breath. "I don't walk because I have arthritis. I can't pull weeds because I can't bend." No orthopnea, PND, or increase peripheral edema. Weight unchanged from prior evaluation. Patient did not take furosemide today. No lightheadedness, dizziness, near syncope, or syncope. No fevers or chills. No epistaxis, hemoptysis, melena, hematochezia, or hematuria. circa 20 years ago. No longer cooks. Sisters (2) and a daughter in the area bring meals from time to time or she eats TV dinners. 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 repeat 2016 Diverticulitis of small intestine with hemorrhage 11/09/05 [...] in lower lobes Pyelonephritis 11/08/05 Status asthmaticus Past Surgical History: Procedure Laterality Date COLONOSCOPY 05/25/06 EGD, FLEXIBLE, W/BIOPSY 05/25/06 LAPAROSCOPY; CHOLECYSTECTOMY 1994 OTHER CABG x 2 2000 stent CAMACHO to LAD Family History Problem Relation Age of Onset Diabetes Mother Diabetes Other Hypertension Other Stroke Sister and dementia Stroke Brother No Past Hx Daughter No Past Hx Daughter Social History Socioeconomic History Marital status: Spouse name: Not on file Number of children: 2 Years of education: Not on file Highest education level: Not on file Occupational History Occupation: retired Employer: [employer] Tobacco Use Smoking status: Never Smokeless tobacco: Never Vaping Use Vaping Use: Never used Substance and Sexual Activity Alcohol use: No Drug use: No Sexual activity: Not Currently Other Topics Concern Service Not Asked Blood Transfusions No Comment: 2 units Caffeine Concern No Occupational Exposure Not Asked Hobby Hazards Not Asked Sleep Concern No Stress Concern Not Asked Weight Concern Not Asked Special Diet Yes Comment: gastroparesis diet Back Care Not Asked Exercise Not Asked Bike Helmet Not Asked Seat Belt Yes Self-Exams Not Asked Social History Narrative Not on file Social Determinants of Health Financial Resource Strain: Not on file Food Insecurity: Not on file Transportation Needs: Not on file Physical Activity: Not on file Stress: Not on file Social Connections: Not on file Intimate Partner Violence: Not on file Housing Stability: Not on file Complete Review of Systems is as stated above, negative, or noncontributory. Review of patient's allergies indicates: Allergen Reactions [...] 1 Tablet by mouth in the morning. Potassium Chloride ER 20 MEQ TBCR Take 1 Tablet by mouth in the morning. 30 Tab 5 Apixaban 5 MG Oral Tablet Take 1 Tablet by mouth in the morning and 1 Tablet before bedtime. Advair HFA 230-21 MCG/ACT Inhalation Aerosol Inhale 1 Puff by mouth in the morning and 1 Puff before bedtime. Rosuvastatin Calcium 40 MG Oral Tablet (Crestor) TAKE ONE TABLET BY MOUTH ONE TIME DAILY 90 Tablet 3 Famotidine 20 MG Oral Tablet (Pepcid) TAKE [...] breakfast and before dinner 60 Tablet 11 SANTYL 250 UNIT/GM ointment No current facility-administered medications for this visit. Physical Examination BP 142/78 | Pulse 80 | Resp 16 | Wt 74.5 kg (164 lb 4 oz) | BMI 33.17 kg/m | BSA 1.76 m General: alert, no distress, comfortable, and cooperative Skin: No rash Eyes: PER. Conjunctiva pink, sclera clear. HENT: Normocephalic. Atraumatic. Neck: No carotid bruits. No JVD. No HJR. Heart: RRR. Soft systolic murmur. No diastolic murmur. No rub. Lungs: Clear. No wheeze. Abdomen: +BS. Soft. Nontender. No masses. No organomegaly. Extremities: Minimal edema. Stasis changes. No clubbing. No cyanosis Pulses: radial=2/4, posterior tibial=1/4. Limited neurological examination: No focal deficit. + Memory impairment. Data: Carotid duplex 02/2022: Right carotid artery duplex [...] 9.2. Iron 54. AST 25. ALT 19. Alk-phos 94 - Lipid panel: Total cholesterol 136. HDL 60. LDL 45. Triglycerides 156. EKG performed on November 26, 2022 personally reviewed, revealed normal sinus rhythm at 85 bpm withLVH and an old septal infarct. Stable diffuse T-wave abnormality, unchanged compared to prior tracings. QTc 406 ms. ASSESSMENT: Relatively stable cardiac signs and symptoms. RECOMMENDATIONS/PLAN: Continue as prescribed. Reduction in dietary sodium intake advised. If/when additional blood pressure control is needed would reconsider titration of lisinopril versusEntresto, both of which may require reduction in potassium chloride dosing. Imdur may be beneficialas well. Routine cardiology follow-up in 6 months time or as needed. ER with emergencies Deric Elizabeth PA-C Department of Cardiology * Jim Hurst LPN - 11/26/2022 2:26 PM EDT PRE - ADMINISTRATION DOCUMENTATION Are you experiencing any cold symptoms or fever? No Have you had Guillain-[place] Syndrome (an illness that causes paralysis) within the last 6 weeks? No Have you had the flu shot in the past? YES Have you ever had a reaction to the flu shot? No Jim Hurst LPN, 11/26/2022 2:26 PM Immunization Administration Documentation Time Out Procedure Performed: Yes Patient Identified (Ask Name/Date of ): Yes Does the patient have a fever greater than 101 degrees today? No Patient allergic to latex? No VFC Stock: No Immunization(s) verified: Yes, Immunization Name: Flu, VIS Sheet(s) given: Yes Verified Side and Site: Yes Verified Shot(s) with Parent(s)/Patient: Yes documented in this encounter Procedure Notes * Dakotah Mckeon DO - 11/26/2022 2:37 PM EDTAssociated Order(s): EKG REASON FOR STUDY: HTN CONCLUSIONS: Normal sinus rhythm High QRS voltage may be normal variant or due to lve Septal infarct (cited on or before 20-APR-2021) T wave abnormality, consider inferior ischemia Abnormal ECG When compared with ECG of 20-APR-2021 13:11, HI interval has decreased Questionable change in initial forces of Anterior leads Ventricular Rate: 85 Atrial Rate: 85 HI Interval: 178 QRS Duration: 84 QT/QTc: 342/406 ms P-R-T [place]: 10 : 13 : 256 degrees documented in this encounter Nursing Notes * Jim Hurst LPN - 11/26/2022 2:29 PM EDT Patient identified by full name and date of Chief Complaint Patient presents with Follow Up 6 1/2 month follow up. SOB with exertion like walking a long distance. Edema in LE no worse then prior. Denies chest pain, palpitations and dizziness. Medication Administration Flu and/or Pneumo Inj Examination Room: 2 Name: Phill Valdez Date of : (1935). Reason for Visit: 6 1/2 month follow up Interim Hospitalization(s): [facility] 4-5 months ago Problems/Concerns: See chief complaint Chest Pain/SOB: See chief complaint [facility] Discussed: Not applicable My [facility] is a way you can talk to your provider online through e-mail. Would you like to sign up? I can activate it for you? DECLINES Patient was instructed to not get up on the exam table until directed and assisted by their provider; patient is to remain seated in the chair/ wheelchair/ exam table for fall prevention and safety reasons. Patient is aware to have assistance to step down off exam table with personnel. Patient voiced full comprehension of instructions. documented in this encounter Plan of Treatment Upcoming Encounters Date Type Specialty Care Team Description 01/19/2023 Office Visit Cardiology Yolie Quintana CRNP [address] [place] [id number] 03/07/2023 Imaging Radiology Health Maintenance Due Date [...] Not on filedocumented as of this encounter Procedures Procedure Name Priority Date/Time Associated Diagnosis Comments HI ECG ROUTINE ECG W/LEAST 12 LDS I&R ONLY Routine 11/26/2022 2:37 PM EDT HTN, goal below 140/90 documented in this encounter Results * EKG (11/26/2022 2:37 PM EDT) 11/26/2022 2:37 PM EDT Procedure Note Dakotah Mckeon, - 11/26/2022 2:37 PM EDT REASON FOR STUDY: HTN CONCLUSIONS: Normal sinus rhythm High QRS voltage may be normal variant or due to lve Septal infarct (cited on or before 20-APR-2021) T wave abnormality, consider inferior ischemia Abnormal ECG When compared with ECG of 20-APR-2021 13:11, HI interval has decreased Questionable change in initial forces of Anterior leads Ventricular Rate: 85 Atrial Rate: 85 HI Interval: 178 QRS Duration: 84 QT/QTc: 342/406 ms P-R-T [place]: 10 : 13 : 256 degrees Deric Elizabeth PA-C EKG [facility] documented in this encounter Visit Diagnoses Diagnosis Need for prophylactic vaccination and inoculation against influenza- Primary Chronic systolic CHF (congestive heart failure) (HCC) Chronic systolic heart failure Ischemic cardiomyopathy Other specified forms of chronic ischemic heart disease Carotid stenosis, non-symptomatic, right Pulmonary embolism, other, unspecified chronicity, unspecified whether acute cor pulmonale present (HCC) ASCVD (arteriosclerotic cardiovascular disease) Unspecified cardiovascular disease HTN, goal below 140/90 Unspecified essential hypertension documented in this encounter Care Teams Tool Straightener Relationship Specialty Start Date End Date Pro, Lucian Flores MD [address] [place] [address] PCP - General Internal Medicine 03/11/14 documented as of this encounter
--- NOTE | 2023-03-09 11:05 | Discharge Summary ---
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 Pt reports falling around 1 PM on 03/08. Pt was outside washing windows and stumbled backwards before slipping and falling, landing on her buttocks. As she was falling, pt noted rolling R lateral foot inwards but did not hear any snap/p opping sound. Pt did not strike her head. She did have immediate pain and swelling afterward around her R lateral foot and over base of 5th toe. She denies any loss of consciousness prior to fall and retains full memory of event. Pt was able to get up and ambulate shortly afterward but had significant pain with ambulation. Pt's daughter visited afterward and brought her to ER. Pt arrived to ER hemodynamically stable. Initial evaluation significant for R foot/ankle XR w/ proximal metatarsal fracture. ER interventions include Tylenol 650 mg, morphine 2 mg IV, placement of walking boot. There was an attempt to have pt ambulate in ER but she was unable to do so due to pain and could not bear adequate weight on it. At present, pt reports continued pain but notes relief from the medications g iven in ER. Principal Diagnosis Mechanical fall, right fifth metatarsal fracture Discharge Exam General-alert and oriented x3, no fevers, no chills HEENT-head atraumatic and normocephalic, pupils equal and reactive to light, extraocular muscles intact Neck-no lymphadenopathy or thyromegaly, trachea midline Chest-clear to auscultation percussion. No rales wheezing or rhonchi Cardiac-regular rate and rhythm, normal S1 and S2 Abdomen-normal bowel sounds, nontender, no hepatosplenomegaly Extremities-no cyanosis, clubbing, or edema. Right foot in walking boot Neuro-cranial nerves II through XII intact, motor and sensory function within normal limits, strength symmetrical, no focal deficits Psych-normal affect, normal mood Discharge Data Allergies Allergy/AdvReac Type Severity Reaction Status Date / Time nitroglycerin AdvReac Intermediate BP Verified 03/08/23 21:35 Decreases, HR Increases tramadol AdvReac Intermediate faint Verified 03/08/23 21:35 feeling, mind foggy not able to think Consultations 03/08/23 22:26 ED Decision to Admit Stat 03/09/23 08:38 Consult Orthopedic Surgery Routine Hospital Course (1) Foot fracture, right: Now in a walking boot. She is ambulating in the room quite well with a walker. She does not need SNF for rehab. Orthopedic consultation pending. No surgical intervention necessary. Pain control measures in place. (2) Fall: Supportive care. PT and OT while hospitalized (3) CHF (congestive heart failure): History of chronic congestive heart failure, diastolic. Monitor intake and output. No acute exacerbation. Continue current medical management. (4) History of pulmonary embolism: Previous history of recurrent DVT + PE. Continue Eliquis (5) Anemia: Hgb stable, at baseline. No evidence of GI bleeding. Serial labs (6) CKD (chronic kidney disease), stage III: Stable. Monitor intake and output. Serial labs (7) Chronic obstructive pulmonary disease: Stable. Continue current medical management (8) Type 2 diabetes mellitus: ADA diet. Continue basal insulin therapy. Sliding scale insulin as needed (9) HTN (hypertension): Stable. Continue lisinopril and Toprol Plan Home today, March 09 with walking boot after seen by orthopedics. She denies the need for narcotic pain control measures. Use walker as needed Total Time Total Time Spent Total Time Spent (In Minutes): 45 minutes Discharge Plan Discharge Items Patient Disposition: Home - Self-Care Reason For Visit: METATARSAL FRACTURE Discharge Diagnosis: Mechanical fall, right fifth metatarsal fracture Activity: As commented below Activity Comment: Use a walker to assist with ambulation Non-emergency contact: Primary Care Provider Call non-emergency contact if: your symptoms worsen Follow-up/Referrals: Lucian Noe MD [Primary Care Provider] - Diet: Carb Consistent or DM2 and Heart Healthy Addtl Attending Provider Instructions: Wear walking boot on the right foot as directed. Follow-up with orthopedics as an out patient Pending Studies at Discharge: No Stand-Alone Forms: My [employer], Smoking Cessation Medications and DC Order Prescriptions: Continued rosuvastatin [Crestor] 40 mg tablet 40 mg PO HS calcium carbonate-vitamin D3 600 mg-25 mcg (1,000 unit) capsule 1 cap PO QAM metoclopramide HCl [Reglan] 10 mg tablet 5 mg PO DIRECTED Rx Instructions: take before breakfast and dinner furosemide 20 mg tablet 20 mg PO QAM famotidine 20 mg tablet 20 mg PO DAILY Qty: 90 3RF albuterol sulfate [ProAir HFA] 90 mcg/actuation HFA aerosol inhaler 2 puff INH Q4H PRN (Reason: shortness of breath) Qty: 8.5 5RF Advair HFA 230-21 mcg/actuation HFA aerosol inhaler 1 puff inhalation BID Qty: 12 5RF anastrozole [Arimidex] 1 mg tablet 1 mg PO QAM Qty: 90 2RF metoprolol succinate [Toprol XL] 50 mg tablet extended release 24 hr 50 mg PO BID Qty: 60 5RF lisinopril 2.5 mg tablet 2.5 mg PO QAM 30 Days Qty: 30 2RF potassium chloride 20 mEq tablet,ER particles/crystals 20 meq PO QAM Qty: 90 1RF acetaminophen 650 mg tablet extended release 1,300 mg PO TID apixaban 5 mg tablet 5 mg PO BID Qty: 180 1RF Discharge Orders: Discharge Order (Routine); Ordered 03/09/23 Ordered By: Erik Almanza Admission Data Admit Date/Time: 03/08/23 23:51 Attending Provider: Erik Almanza Admit Provider: Alcon Paul Primary Care Provider: Lucian Noe Other Providers: Yon Coon; Jim Guerrier; Brenda Thomas; Marta Payne; Danilo Dyson; Gabrielle Moreau; Dakotah Loera; Wanda Diaz; Porter Gillespie; Dharmesh Strickland; Anushka Miller; Dharmesh Grimaldo; Munir Kern Coding Level of Care Code 19820 INP/OBS DISCH >30 MIN Diagnoses Foot fracture, right S92.901A Encounter type: initial encounter Fracture type: closed Fall W19.XXXA Congestive heart failure, unspecified HF chronicity, unspecified heart failure type I50.43 Heart failure type: combined systolic and diastolic Heart failure chronicity: acute on chronic History of pulmonary embolism Z86.711 Anemia D64.9 Stage 3 chronic kidney disease, unspecified whether stage 3a or 3b CKD N18.30 Chronic kidney disease stage 3 subtype: unspecified whether 3a or 3b Chronic obstructive pulmonary disease, unspecified COPD type J44.9 COPD type: unspecified COPD Type 2 diabetes mellitus E11.9 Essential hypertension I10 Hypertension type: essential hypertension
--- NOTE | 2023-03-09 13:38 | Orthopedic Consultation ---
Date of Service March 09, 2023 Assessment & Plan (1) Closed fracture of fifth metatarsal bone: She was seen and examined by Dr. Loera today. She is walking fairly well with a boot on and using a walker. Okay to discharge from orthopedic standpoint. She should wear the boot for walking for 1 month. Okay to remove the boot at rest and when sleeping. She should follow up with orthopedics in 1 month. She does have some shoulder arthritis and can follow up with her orthopedic provider as needed for the shoulder, or we can recheck this as well in 1 month. History of Present Illness Reason for Consultation: . Requesting Physician: . Attending Physician: Erik Almanza MD . 87 year old patient that injured her right foot yesterday. She apparently had an inversion type injury while she was washing her windows yesterday. Xrays show a fracture at the base of the 5th metatarsal. She has been given a boot already. She complains of pain around the lateral foot, but also having some shoulder pain and difficulty raising her arm. Reports that she has some shoulder arthritis and sees Eddie Jha with [facility] for injections. Allergies Allergy/AdvReac Type Severity Reaction Status Date / Time nitroglycerin AdvReac Intermediate BP Verified 03/08/23 21:35 Decreases, HR Increases tramadol AdvReac Intermediate faint Verified 03/08/23 21:35 feeling, mind foggy not able to think Home Medications Medication Instructions Recorded Confirmed Type rosuvastatin 40 mg tablet (Crestor) 40 mg PO HS 12/13/17 03/08/23 History furosemide 20 mg tablet 20 mg PO QAM 12/11/19 03/08/23 History metoclopramide HCl 10 mg tablet 5 mg PO DIRECTED 12/11/19 03/08/23 History (Reglan) acetaminophen 650 mg 1,300 mg PO TID 08/07/20 03/08/23 History tablet,extended release calcium carbonate 600 mg-vitamin 1 cap PO QAM 11/09/21 03/08/23 History D3 25 mcg (1,000 unit) capsule famotidine 20 mg tablet 20 mg PO DAILY #90 tabs 04/22/22 03/08/23 Rx albuterol sulfate 90 mcg/actuation 2 puff inhalation Q4H PRN 05/07/22 03/08/23 Rx aerosol inhaler (ProAir HFA) shortness of breath #8.5 grams fluticasone propionate 230 1 puff inhalation BID #12 grams 05/27/22 03/08/23 Rx mcg-salmeterol 21 mcg/actuation HFA inhaler (Advair HFA) anastrozole 1 mg tablet (Arimidex) 1 mg PO QAM #90 tabs 11/04/22 03/08/23 Rx apixaban 5 mg tablet 5 mg PO BID #180 tabs 11/17/22 03/08/23 Rx metoprolol succinate 50 mg 50 mg PO BID #60 tabs 11/30/22 03/08/23 Rx tablet,extended release 24 hr (Toprol XL) lisinopril 2.5 mg tablet 2.5 mg PO QAM 30 days #30 tabs 12/13/22 03/08/23 Rx potassium chloride 20 mEq 20 meq PO QAM #90 tabs 02/22/23 03/08/23 Rx tablet,extended release(part/cryst) Past Med/Surg History Medical History GERD (gastroesophageal reflux disease) Hyperlipidemia LDL goal <100 HTN (hypertension) Hospital discharge follow-up Productive cough Elevated vitamin B12 level Acute hypoxemic respiratory failure COVID-19 virus infection Metabolic encephalopathy Sepsis Acute dehydration Acute hypoxemic respiratory failure due to COVID-19 Rash Petechiae Encounter for pre-operative examination Carotid artery stenosis Gastroparesis Osteoarthritis Diverticular disease Diabetes mellitus, type 2 no medications -- diet controlled Myocardial Infarction [address]. [address] Viera Chronic obstructive pulmonary disease Long-term (current) use of anticoagulants, INR goal 2.0-3.0 Open wound of left breast hx Asthma Septic shock hx r/t UTI (2018) CKD (chronic kidney disease), stage III Multiple pulmonary emboli S/P surgical procedure (~5-10 years ago) reason for warfarin daily Anemia Systolic CHF, chronic Breast carcinoma, lobular Right. takes Arimidex daily CHF (congestive heart failure) Surgical History S/P debridement right breast wound debridement + wound vac + skin graft from a cadaver. (multiple) H/O vascular surgery port-a-cath insertion History of removal of Port-a-Cath Hx of lumpectomy right breast with lymph node removal History of colonoscopy History of cataract surgery bilateral History of coronary artery bypass graft x2 vessels (1994) History of cardiac cath with stent following CABG with one stent. S/P lymph node biopsy right breast & axillary S/P cholecystectomy Laprascopic Family History Father Lung cancer Brother Prostate cancer Myocardial infarction Other No family history of adverse response to anesthesia Denies family history of Colon cancer Ovarian cancer Breast cancer Social History Smoking Status: Former smoker Tobacco Type: Cigarettes Second Hand Exposure: No; Do You Dip or Chew Tobacco: No; Hx Alcohol Use: No Hx Substance Use: No Preferred Language: Vietnamese Communication Ability: Effective Visual Impairment: No Limitations Hearing Ability: Normal Ex Chef Required: No Beliefs That Will Affect Care: None marital status: / Current Living Situation: Alone current occupational status: retired Feels Safe at Home: Yes Dental Care, Regularly: Yes Physical Activity Frequency: Does not Exercise Seatbelt Use: always Assistive Devices: Walker and Other Review of Systems All systems reviewed & are unremarkable except as noted in HPI & below. Physical Exam .Alert and oriented. NAD. Ambulating with a walker in the hallway. She has some lateral ankle/foot swelling. Tender over the 5th metatarsal. She can dorsiflex and plantarflex. NVi. She is able to actively raise her right arm to about 100 degrees. Results & Data Results & Data Laboratory Results . Diagnostic Findings .xrays of the right foot and ankle show a nondisplaced zone 1 5th metatarsal base fracture. No dislocation PG Care Time/CCT Total # of Minutes Spent Total Time Spent with Patient: Total time spent is greater than 50% in coordination of care (as documented) at patient's floor/unit and/or counseling patient: Coding Level of Care Code 91834 IN/OBS CONSULT LVL 3,45M Diagnoses Closed fracture of fifth metatarsal bone S92.353A
--- NOTE | 2023-03-09 14:14 | Hospitalist Progress Note ---
Date of Service March 09, 2023 Assessment & Plan (1) Foot fracture, right: Plan: Now in a walking boot. She is ambulating in the room quite well with a walker. Daughter has demanded referral to [facility]. Orthopedic consultation pending. No surgical intervention necessary. Pain control measures in place. (2) Fall: Plan: Supportive care. PT and OT while hospitalized (3) CHF (congestive heart failure): Plan: History of chronic congestive heart failure, diastolic. Monitor intake and output. No acute exacerbation. Continue current medical management. (4) History of pulmonary embolism: Plan: Previous history of recurrent DVT + PE. Continue Eliquis (5) Anemia: Plan: Hgb stable, at baseline. No evidence of GI bleeding. Serial labs (6) CKD (chronic kidney disease), stage III: Plan: Stable. Monitor intake and output. Serial labs (7) Chronic obstructive pulmonary disease: Plan: Stable. Continue current medical management (8) Type 2 diabetes mellitus: Plan: ADA diet. Continue basal insulin therapy. Sliding scale insulin as needed (9) HTN (hypertension): Plan: Stable. Continue lisinopril and Toprol Plan The patient is admitted from observation while arrangements are being made for referral to [facility]. Use walker as needed Admission and Anticipated Discharge Date Admission Date: March 08, 2023 Subjective Planned discharge to home was canceled because the daughter is demanding referral to [facility]. Orthopedic consultation requested and pending. Review of Systems 2 Review of Systems: Constitutional-no fever or chills ENT-no blurred vision, no double vision, no epistaxis, no sore throat Respiratory-no cough, no wheezing, no shortness of breath Cardiac-no palpitations, no chest pain, no syncope GI-no nausea, vomiting, diarrhea, melena, hematochezia -no urinary retention, no urinary incontinence, no dysuria, no hematuria Musculoskeletal-right foot in walking boot. The patient denies pain skin-no bruising, no rashes, no pruritus Neuro-no isolated weakness, no paresthesia, no weakness Psych-no depression, no anxiety Physical Exam 2 Physical Exam: General-alert and oriented x3, no fevers, no chills HEENT-head atraumatic and normocephalic, pupils equal and reactive to light, extraocular muscles intact Neck-no lymphadenopathy or thyromegaly, trachea midline Chest-clear to auscultation percussion. No rales wheezing or rhonchi Cardiac-regular rate and rhythm, normal S1 and S2 Abdomen-normal bowel sounds, nontender, no hepatosplenomegaly Extremities-no cyanosis, clubbing, or edema. Right foot in walking boot Neuro-cranial nerves II through XII intact, motor and sensory function within normal limits, strength symmetrical, no focal deficits Psych-normal affect, normal mood Results & Data Results & Data Vital Signs (Past 12 Hours) Vital Signs Temp Pulse Pulse Resp BP Pulse Ox Pulse Ox 03/09/23 13:13 98 03/09/23 07:24 36.4 C L 98 H 16 136/88 97 03/09/23 05:04 03/09/23 05:04 36.4 C L 77 18 132/84 95 03/09/23 03:35 77 15 177/85 H 92 03/09/23 02:32 72 O2 Del Method 03/09/23 13:13 03/09/23 07:24 Room Air 03/09/23 05:04 Room Air 03/09/23 05:04 Room Air 03/09/23 03:35 Room Air 03/09/23 02:32 Laboratory Results 03/09/23 04:20 03/09/23 04:20 PG Care Time/CCT Total # of Minutes Spent Total Time Spent with Patient: Total time spent is greater than 50% in coordination of care (as documented) at patient's floor/unit and/or counseling patient: Coding Level of Care Code 99906 SUB INP/OBS CARE 3/50MIN Diagnoses Foot fracture, right S92.901A Encounter type: initial encounter Fracture type: closed Fall W19.XXXA Congestive heart failure, unspecified HF chronicity, unspecified heart failure type I50.43 Heart failure type: combined systolic and diastolic Heart failure chronicity: acute on chronic History of pulmonary embolism Z86.711 Anemia D64.9 Stage 3 chronic kidney disease, unspecified whether stage 3a or 3b CKD N18.30 Chronic kidney disease stage 3 subtype: unspecified whether 3a or 3b Chronic obstructive pulmonary disease, unspecified COPD type J44.9 COPD type: unspecified COPD Type 2 diabetes mellitus E11.9 Essential hypertension I10 Hypertension type: essential hypertension (1) Foot fracture, right Encounter type: initial encounter Fracture type: closed Qualified Code(s): S 92.901A - Unspecified fracture of right foot, initial encounter for closed fracture (3) CHF (congestive heart failure) Heart failure type: combined systolic and diastolic Heart failure chronicity: acute on chronic Qualified Code(s): I50.43 - Acute on chronic combined systolic (congestive) and diastolic (congestive) heart failure (6) CKD (chronic kidney disease), stage III Chronic kidney disease stage 3 subtype: unspecified whether 3a or 3b Qualified Code(s): N18.30 - Chronic kidney disease, stage 3 unspecified (7) Chronic obstructive pulmonary disease COPD type: unspecified COPD Qualified Code(s): J44.9 - Chronic obstructive pulmonary disease, unspecified (9) HTN (hypertension) Hypertension type: essential hypertension Qualified Code(s): I10 - Essential (primary) hypertension
[2023-03-09] MEDS: ROSUVASTATIN CALCIUM 20 MG TAB PO SCH (21:08)
[2023-03-10] MEDS: DICLOFENAC SOD 1% GEL 100 GM TUBE EXT SCH ×4 (00:48→17:42)
[2023-03-10] MEDS: INSULIN ASPART PER UNIT CHARGE SC SCH ×4 (08:06→20:39)
[2023-03-10] MEDS: METOPROLOL SUCC 50MG EXT REL TAB PO SCH ×2 (08:34→20:35)
[2023-03-10] MEDS: lisinopril 2.5 MG TAB PO SCH (08:34)
[2023-03-10] MEDS: APIXABAN 5 MG TABLET PO SCH ×2 (08:34→20:35)
[2023-03-10] MEDS: FLUTICASONE/VILANTEROL 100/25MCG 14 PUFFS/INHALER INH SCH (08:35)
[2023-03-10] MEDS: ANASTROZOLE 1 MG TAB PO SCH (08:35)
[2023-03-10] MEDS: FUROSEMIDE 20 MG TAB PO SCH (08:35)
[2023-03-10] MEDS: ACETAMINOPHEN 325 MG TAB PO PRN ×2 (08:43→20:38)
[2023-03-10] MEDS: POLYETHYLENE (MIRALAX) 17 GM PACK PO SCH (08:43)
[2023-03-10] MEDS: DOCUSATE SODIUM 100 MG CAP PO SCH ×2 (08:43→20:35)
[2023-03-10] MEDS: FAMOTIDINE 20 MG TAB PO SCH (08:43)
[2023-03-10] MEDS: LANTUS PER UNIT CHARGE SQ SCH ×2 (08:44→20:41)
--- NOTE | 2023-03-10 12:36 | Hospitalist Progress Note ---
Date of Service March 10, 2023 Assessment & Plan (1) Foot fracture, right: Plan: Now in a walking boot. She is ambulating in the room quite well with a walker. Daughter has demanded referral to [facility]. Orthopedic consultation noted. She will wear the walking boot for at least 1 month. No surgical intervention necessary. Pain control measures in place. (2) Fall: Plan: Supportive care. PT and OT while hospitalized (3) CHF (congestive heart failure): Plan: History of chronic congestive heart failure, diastolic. Monitor intake and output. No acute exacerbation. Continue current medical management. (4) History of pulmonary embolism: Plan: Previous history of recurrent DVT + PE. Continue Eliquis (5) Anemia: Plan: Hgb stable, at baseline. No evidence of GI bleeding. Serial labs (6) CKD (chronic kidney disease), stage III: Plan: Stable. Monitor intake and output. Serial labs (7) Chronic obstructive pulmonary disease: Plan: Stable. Continue current medical management (8) Type 2 diabetes mellitus: Plan: ADA diet. Continue basal insulin therapy. Sliding scale insulin as needed (9) HTN (hypertension): Plan: Stable. Continue lisinopril and Toprol Plan Awaiting SNF or IPR placement. Walking boot will remain on the right foot for at least 1 month. Use walker as needed Admission and Anticipated Discharge Date Admission Date: March 09, 2023 Subjective Alert and oriented x 2. No new problems. She appears to have an element of dementia. Orthopedic consultation noted. She will wear the boot on the right foot for 1 month then follow-up with them as an outpatient. Review of Systems 2 Review of Systems: Constitutional-no fever or chills ENT-no blurred vision, no double vision, no epistaxis, no sore throat Respiratory-no cough, no wheezing, no shortness of breath Cardiac-no palpitations, no chest pain, no syncope GI-no nausea, vomiting, diarrhea, melena, hematochezia -no urinary retention, no urinary incontinence, no dysuria, no hematuria Musculoskeletal-right foot in walking boot. The patient denies pain skin-no bruising, no rashes, no pruritus Neuro-no isolated weakness, no paresthesia, no weakness Psych-no depression, no anxiety Physical Exam 2 Physical Exam: General-alert and oriented x2, no fevers, no chills HEENT-head atraumatic and normocephalic, pupils equal and reactive to light, extraocular muscles intact Neck-no lymphadenopathy or thyromegaly, trachea midline Chest-clear to auscultation percussion. No rales wheezing or rhonchi Cardiac-regular rate and rhythm, normal S1 and S2 Abdomen-normal bowel sounds, nontender, no hepatosplenomegaly Extremities-no cyanosis, clubbing, or edema. Right foot in walking boot Neuro-cranial nerves II through XII intact, motor and sensory function within normal limits, strength symmetrical, no focal deficits Psych-normal affect, normal mood Results & Data Results & Data Vital Signs (Past 12 Hours) Vital Signs Temp Pulse Resp BP Pulse Ox O2 Del Method 03/10/23 08:13 36.8 C 79 18 132/76 96 Room Air Laboratory Results 03/09/23 04:20 03/09/23 04:20 PG Care Time/CCT Total # of Minutes Spent Total Time Spent with Patient: Total time spent is greater than 50% in coordination of care (as documented) at patient's floor/unit and/or counseling patient: Coding Level of Care Code 27633 SUB INP/OBS CARE 2/35MIN Diagnoses Foot fracture, right S92.901A Encounter type: initial encounter Fracture type: closed Fall W19.XXXA Congestive heart failure, unspecified HF chronicity, unspecified heart failure type I50.43 Heart failure type: combined systolic and diastolic Heart failure chronicity: acute on chronic History of pulmonary embolism Z86.711 Anemia D64.9 Stage 3 chronic kidney disease, unspecified whether stage 3a or 3b CKD N18.30 Chronic kidney disease stage 3 subtype: unspecified whether 3a or 3b Chronic obstructive pulmonary disease, unspecified COPD type J44.9 COPD type: unspecified COPD Type 2 diabetes mellitus E11.9 Essential hypertension I10 Hypertension type: essential hypertension (1) Foot fracture, right Encounter type: initial encounter Fracture type: closed Qualified Code(s): S 92.901A - Unspecified fracture of right foot, initial encounter for closed fracture (3) CHF (congestive heart failure) Heart failure type: combined systolic and diastolic Heart failure chronicity: acute on chronic Qualified Code(s): I50.43 - Acute on chronic combined systolic (congestive) and diastolic (congestive) heart failure (6) CKD (chronic kidney disease), stage III Chronic kidney disease stage 3 subtype: unspecified whether 3a or 3b Qualified Code(s): N18.30 - Chronic kidney disease, stage 3 unspecified (7) Chronic obstructive pulmonary disease COPD type: unspecified COPD Qualified Code(s): J44.9 - Chronic obstructive pulmonary disease, unspecified (9) HTN (hypertension) Hypertension type: essential hypertension Qualified Code(s): I10 - Essential (primary) hypertension
[2023-03-10] MEDS: ROSUVASTATIN CALCIUM 20 MG TAB PO SCH (20:35)
[2023-03-11] MEDS: DICLOFENAC SOD 1% GEL 100 GM TUBE EXT SCH ×4 (01:04→12:00)
[2023-03-11 06:59] VITALS: BP 121/77; PULSE 73; RESP 17; TEMP 97.9; O2SAT 95
[2023-03-11] MEDS: INSULIN ASPART PER UNIT CHARGE SC SCH ×2 (08:13→11:59)
[2023-03-11] MEDS: POLYETHYLENE (MIRALAX) 17 GM PACK PO SCH (08:33)
[2023-03-11] MEDS: ANASTROZOLE 1 MG TAB PO SCH (08:33)
[2023-03-11] MEDS: METOPROLOL SUCC 50MG EXT REL TAB PO SCH (08:33)
[2023-03-11] MEDS: LANTUS PER UNIT CHARGE SQ SCH (08:33)
[2023-03-11] MEDS: DOCUSATE SODIUM 100 MG CAP PO SCH (08:33)
[2023-03-11] MEDS: lisinopril 2.5 MG TAB PO SCH (08:33)
[2023-03-11] MEDS: FUROSEMIDE 20 MG TAB PO SCH (08:33)
[2023-03-11] MEDS: APIXABAN 5 MG TABLET PO SCH (08:34)
[2023-03-11] MEDS: FLUTICASONE/VILANTEROL 100/25MCG 14 PUFFS/INHALER INH SCH (08:34)
[2023-03-11] MEDS: FAMOTIDINE 20 MG TAB PO SCH (08:40)
[2023-03-11] MEDS: ACETAMINOPHEN 325 MG TAB PO PRN (08:43)
--- NOTE | 2023-03-11 11:27 | Hospitalist Progress Note ---
Date of Service March 11, 2023 Assessment & Plan (1) Foot fracture, right: Plan: Now in a walking boot. She is ambulating in the room quite well with a walker. Daughter has demanded referral to [facility]. Orthopedic consultation noted. She will wear the walking boot for at least 1 month. No surgical intervention necessary. Pain control measures in place. (2) Dementia: Plan: Supportive care. (3) Fall: Plan: Supportive care. PT and OT while hospitalized (4) CHF (congestive heart failure): Plan: History of chronic congestive heart failure, diastolic. Monitor intake and output. No acute exacerbation. Continue current medical management. (5) History of pulmonary embolism: Plan: Previous history of recurrent DVT + PE. Continue Eliquis (6) Anemia: Plan: Hgb stable, at baseline. No evidence of GI bleeding. Serial labs (7) CKD (chronic kidney disease), stage III: Plan: Stable. Monitor intake and output. Serial labs (8) Chronic obstructive pulmonary disease: Plan: Stable. Continue current medical management (9) Type 2 diabetes mellitus: Plan: ADA diet. Continue basal insulin therapy. Sliding scale insulin as needed (10) HTN (hypertension): Plan: Stable. Continue lisinopril and Toprol Plan Awaiting insurance authorization for IPR placement. Walking boot will remain on the right foot for at least 1 month. Use walker as needed Admission and Anticipated Discharge Date Admission Date: March 09, 2023 Subjective Alert. No distress. She appears to have an element of dementia. Awaiting insurance authorization for IPR placement Review of Systems 2 Review of Systems: Constitutional-no fever or chills ENT-no blurred vision, no double vision, no epistaxis, no sore throat Respiratory-no cough, no wheezing, no shortness of breath Cardiac-no palpitations, no chest pain, no syncope GI-no nausea, vomiting, diarrhea, melena, hematochezia -no urinary retention, no urinary incontinence, no dysuria, no hematuria Musculoskeletal-right foot in walking boot. The patient denies pain skin-no bruising, no rashes, no pruritus Neuro-no isolated weakness, no paresthesia, no weakness Psych-no depression, no anxiety Physical Exam 2 Physical Exam: General-alert and oriented x2, no fevers, no chills HEENT-head atraumatic and normocephalic, pupils equal and reactive to light, extraocular muscles intact Neck-no lymphadenopathy or thyromegaly, trachea midline Chest-clear to auscultation percussion. No rales wheezing or rhonchi Cardiac-regular rate and rhythm, normal S1 and S2 Abdomen-normal bowel sounds, nontender, no hepatosplenomegaly Extremities-no cyanosis, clubbing, or edema. Right foot in walking boot Neuro-cranial nerves II through XII intact, motor and sensory function within normal limits, strength symmetrical, no focal deficits Psych-normal affect, normal mood Results & Data Results & Data Vital Signs (Past 12 Hours) Vital Signs Temp Pulse Resp BP Pulse Ox O2 Del Method 03/11/23 08:49 Room Air 03/11/23 06:56 36.6 C 73 17 121/77 95 Room Air Laboratory Results 03/09/23 04:20 03/09/23 04:20 PG Care Time/CCT Total # of Minutes Spent Total Time Spent with Patient: Total time spent is greater than 50% in coordination of care (as documented) at patient's floor/unit and/or counseling patient: Coding Level of Care Code 83069 SUB INP/OBS CARE 2/35MIN Diagnoses Foot fracture, right S92.901A Encounter type: initial encounter Fracture type: closed Dementia F03.90 Fall W19.XXXA Congestive heart failure, unspecified HF chronicity, unspecified heart failure type I50.43 Heart failure type: combined systolic and diastolic Heart failure chronicity: acute on chronic History of pulmonary embolism Z86.711 Anemia D64.9 Stage 3 chronic kidney disease, unspecified whether stage 3a or 3b CKD N18.30 Chronic kidney disease stage 3 subtype: unspecified whether 3a or 3b Chronic obstructive pulmonary disease, unspecified COPD type J44.9 COPD type: unspecified COPD Type 2 diabetes mellitus E11.9 Essential hypertension I10 Hypertension type: essential hypertension (1) Foot fracture, right Encounter type: initial encounter Fracture type: closed Qualified Code(s): S 92.901A - Unspecified fracture of right foot, initial encounter for closed fracture (4) CHF (congestive heart failure) Heart failure type: combined systolic and diastolic Heart failure chronicity: acute on chronic Qualified Code(s): I50.43 - Acute on chronic combined systolic (congestive) and diastolic (congestive) heart failure (7) CKD (chronic kidney disease), stage III Chronic kidney disease stage 3 subtype: unspecified whether 3a or 3b Qualified Code(s): N18.30 - Chronic kidney disease, stage 3 unspecified (8) Chronic obstructive pulmonary disease COPD type: unspecified COPD Qualified Code(s): J44.9 - Chronic obstructive pulmonary disease, unspecified (10) HTN (hypertension) Hypertension type: essential hypertension Qualified Code(s): I10 - Essential (primary) hypertension
--- NOTE | 2023-03-11 11:39 | Discharge Summary ---
Date of Service March 11, 2023 Admission HPI Per Admitting Provider Pt is 87 yo F with PMH HFrEF, HTN, HLD, DM2, CAD s/p CABG, recurrent DVT w/ history of PE on chronic Eliquis COPD, asthma, GERD, CKD3, breast cancer, anemia presenting with fall. Pt reports falling around 1 PM on 03/08. Pt was outside washing windows and stumbled backwards before slipping and falling, landing on her buttocks. As she was falling, pt noted rolling R lateral foot inwards but did not hear any snap/p opping sound. Pt did not strike her head. She did have immediate pain and swelling afterward around her R lateral foot and over base of 5th toe. She denies any loss of consciousness prior to fall and retains full memory of event. Pt was able to get up and ambulate shortly afterward but had significant pain with ambulation. Pt's daughter visited afterward and brought her to ER. Pt arrived to ER hemodynamically stable. Initial evaluation significant for R foot/ankle XR w/ proximal metatarsal fracture. ER interventions include Tylenol 650 mg, morphine 2 mg IV, placement of walking boot. There was an attempt to have pt ambulate in ER but she was unable to do so due to pain and could not bear adequate weight on it. At present, pt reports continued pain but notes relief from the medications g iven in ER. Principal Diagnosis Mechanical fall, right fifth metatarsal fracture, suspected dementia Discharge Exam General-alert and oriented x2, no fevers, no chills HEENT-head atraumatic and normocephalic, pupils equal and reactive to light, extraocular muscles intact Neck-no lymphadenopathy or thyromegaly, trachea midline Chest-clear to auscultation percussion. No rales wheezing or rhonchi Cardiac-regular rate and rhythm, normal S1 and S2 Abdomen-normal bowel sounds, nontender, no hepatosplenomegaly Extremities-no cyanosis, clubbing, or edema. Right foot in walking boot Neuro-cranial nerves II through XII intact, motor and sensory function within normal limits, strength symmetrical, no focal deficits Psych-normal affect, normal mood Discharge Data Allergies Allergy/AdvReac Type Severity Reaction Status Date / Time nitroglycerin AdvReac Intermediate BP Verified 03/08/23 21:35 Decreases, HR Increases tramadol AdvReac Intermediate faint Verified 03/08/23 21:35 feeling, mind foggy not able to think Consultations 03/08/23 22:26 ED Decision to Admit Stat 03/09/23 08:38 Consult Orthopedic Surgery Routine Hospital Course (1) Foot fracture, right: Now in a walking boot. She is ambulating in the room quite well with a walker. Daughter has demanded referral to [facility]. Orthopedic consultation noted. She will wear the walking boot for at least 1 month. No surgical intervention necessary. Pain control measures in place. (2) Dementia: Supportive care. (3) Fall: Supportive care. PT and OT while hospitalized (4) CHF (congestive heart failure): History of chronic congestive heart failure, diastolic. Monitor intake and output. No acute exacerbation. Continue current medical management. (5) History of pulmonary embolism: Previous history of recurrent DVT + PE. Continue Eliquis (6) Anemia: Hgb stable, at baseline. No evidence of GI bleeding. Serial labs (7) CKD (chronic kidney disease), stage III: Stable. Monitor intake and output. Serial labs (8) Chronic obstructive pulmonary disease: Stable. Continue current medical management (9) Type 2 diabetes mellitus: ADA diet. Continue basal insulin therapy. Sliding scale insulin as needed (10) HTN (hypertension): Stable. Continue lisinopril and Toprol Plan Insurance has denied IPR placement. She is medically stable for discharge back to home. Walking boot will remain on the right foot for at least 1 month. Use walker as needed Total Time Total Time Spent Total Time Spent (In Minutes): 45 minutes Discharge Plan Discharge Items Patient Disposition: Home - Self-Care Reason For Visit: METATARSAL FRACTURE Discharge Diagnosis: Mechanical fall, right fifth metatarsal fracture, suspected dementia Activity: As commented below Activity Comment: Use a walker to assist with ambulation Non-emergency contact: Primary Care Provider Call non-emergency contact if: your symptoms worsen Follow-up/Referrals: Lucian Noe MD [Primary Care Provider] - 03/11/23 2:00 pm Diet: Carb Consistent or DM2 and Heart Healthy Addtl Attending Provider Instructions: Wear walking boot on the right foot as directed. Follow-up with orthopedics as an out patient Should wear the boot on right foot when walking. Follow up with orthopedics in 1 month. Call [phone] for an appointment. Pending Studies at Discharge: No Stand-Alone Forms: [facility], Smoking Cessation Medications and DC Order Prescriptions: Continued rosuvastatin [Crestor] 40 mg tablet 40 mg PO HS calcium carbonate-vitamin D3 600 mg-25 mcg (1,000 unit) capsule 1 cap PO QAM metoclopramide HCl [Reglan] 10 mg tablet 5 mg PO DIRECTED Rx Instructions: take before breakfast and dinner furosemide 20 mg tablet 20 mg PO QAM famotidine 20 mg tablet 20 mg PO DAILY Qty: 90 3RF albuterol sulfate [ProAir HFA] 90 mcg/actuation HFA aerosol inhaler 2 puff INH Q4H PRN (Reason: shortness of breath) Qty: 8.5 5RF Advair HFA 230-21 mcg/actuation HFA aerosol inhaler 1 puff inhalation BID Qty: 12 5RF anastrozole [Arimidex] 1 mg tablet 1 mg PO QAM Qty: 90 2RF metoprolol succinate [Toprol XL] 50 mg tablet extended release 24 hr 50 mg PO BID Qty: 60 5RF lisinopril 2.5 mg tablet 2.5 mg PO QAM 30 Days Qty: 30 2RF potassium chloride 20 mEq tablet,ER particles/crystals 20 meq PO QAM Qty: 90 1RF acetaminophen 650 mg tablet extended release 1,300 mg PO TID apixaban 5 mg tablet 5 mg PO BID Qty: 180 1RF Discharge Orders: Discharge Order (Routine); Ordered 03/11/23 Ordered By: Erik Manning/Other Patient Handouts: Fifth Metatarsal Fx Admission Data Admit Date/Time: 03/09/23 14:11 Attending Provider: Erik Almanza Admit Provider: Alcon Paul Primary Care Provider: Lucian Noe Other Providers: Yon Coon; Jim Guerrier; Brenda Thomas; Marta Payne; Danilo Dyson; Gabrielle Moreau; Dakotah Loera; Wanda Diaz; Porter Gillespie; Dharmesh Strickland; Anushka Miller; Dharmesh Grimaldo; Munir Kern; [place] Other Interventions: Discharge Summary Assessment (RN) Last Done: 03/09/23 14:02 Coding Level of Care Code 77297 INP/OBS DISCH >30 MIN Diagnoses Foot fracture, right S92.901A Encounter type: initial encounter Fracture type: closed Dementia F03.90 Fall W19.XXXA Congestive heart failure, unspecified HF chronicity, unspecified heart failure type I50.43 Heart failure type: combined systolic and diastolic Heart failure chronicity: acute on chronic History of pulmonary embolism Z86.711 Anemia D64.9 Stage 3 chronic kidney disease, unspecified whether stage 3a or 3b CKD N18.30 Chronic kidney disease stage 3 subtype: unspecified whether 3a or 3b Chronic obstructive pulmonary disease, unspecified COPD type J44.9 COPD type: unspecified COPD Type 2 diabetes mellitus E11.9 Essential hypertension I10 Hypertension type: essential hypertension
== END 2023-03-11 15:35 | disposition home or self-care (01) | DRG 543 ==
LOC: ED 20:39 → EDINP 20:39 → SUATTDRO 23:51 → 3N 03-09 01:18

== ENCOUNTER 2023-09-22 11:49 | Inpatient (IN) ==
--- NOTE | 2023-09-22 13:18 | Emergency Department Note ---
Impression & Plan Confusion, Accidental overdose, Hyponatremia, Dementia ED Provider Note ED Provider Note NAME: NANCY STARKS AGE:87 SEX: Female : 1935 ARRIVES VIA: Private vehicle INFORMANT: Patient ED PROVIDER(s): Va Botello DO CHIEF COMPLAINT: Increased confusion over several weeks, accidental overdose HPI: This is an 87-year-old female presents emergency department with family due to concern for worsening confusion and possible accidental overdose. Patient lives alone however family is there daily checking on her. She does have a history of dementia although they have noticed a decline in her overall cognitive function recently. They did see her PCP yesterday and was sent for outpatient labs and UA to begin to evaluate this. No prior neuroimaging. Daughter states when she arrived today she realized that her pills for today, tomorrow, and Tuesday were missing. Patient unable to provide any additional history. She denies pain and is not in any apparent distress. Daughter states to her knowledge she has not had any recent falls. She states she has not otherwise recently been ill. PAST MEDICAL HISTORY:See Below PAST SURGICAL HISTORY:See Below FAMILY HISTORY:See Below SOCIAL HISTORY:See Below HOME MEDICATIONS:See Below ALLERGIES:See Below VITALS:See Below PHYSICAL EXAMINATION: GENERAL: alert, well appearing, well nourished, no distress, non-toxic EYE EXAM: normal conjunctiva, PERRL and EOM's grossly intact OROPHARYNX: no exudate, no erythema, lips, buccal mucosa, and tongue normal and mucous membranes are moist NECK: supple, no nuchal rigidity, no adenopathy, non-tender LUNGS: Clear to auscultation. Normal chest wall mechanics, no w/r/r HEART: no murmurs, S1 normal and S2 normal ABDOMEN: abdomen soft, non-tender, normo-active bowel sounds, no masses, no rebound or guarding. SKIN: no rashes, petechiae, orbruising UPPER EXTREMITIES: upper extremities are grossly normal. FROM, nml pulses b/l. LOWER EXTREMITIES: No pitting edema. FROM, nml pulses b/l. NEURO EXAM: Confused, cranial nerves II-XII grossly intact, normal speech, no facial droop,nogross weakness of arms, no gross weakness of legs. Gross sensation intact. No ataxia. Vital Signs: reviewed and remarkable Differential Diagnosis: Worsening dementia, electrolyte abnormality, AGUSTIN, UTI, pneumonia, medication ADR, ICH, CVA, as well as others were considered MEDICAL DECISION MAKING: This is an 87-year-old female who presents emergency department due to concern for worsening confusion and possible accidental overdose per family report. She was afebrile and vital signs stable. Labs drawn and sent, IV established, EKG and chest ray performed at bedside interpreted by me and patient monitored on telemetry. She was sent for CT head additionally. Urine collected and sent to evaluate for UTI. Patient noted to have mild hyponatremia, no significant change from labs yesterday. Patient's other labs reassuring. I did discuss the case with poison control who recommended observation as well as adding PT/INR, acetaminophen, and salicylates. The these were added and were reassuring. Patient continued to be hemodynamically stable while here. I updated family at bedside on all results. We discussed additional inpatient evaluation and monitoring. They verbalized understanding were in agreement. Case discussed with on-call [facility] hospitalist for additional evaluation and management. Consultation(s): [id number]: Discussed with Poison Control. [id number]: Discussed with Dr. Carbajal, [place] hospitalist, for additional evaluation and mgmt. ER Treatment Provided: See below Diagnostics Interpreted By Me: -ECG: Normal sinus at 76, first-degree AV block, normal axis, normal intervals, inverted T waves noted in 1, aVL, V4 through V6, this is unchanged compared to prior -Cardiac Monitoring: An order was placed for continuous cardiac monitoring. The monitor shows a rate of 70 with normal sinus rhythm. -Laboratory studies: As stated above and show below. -Imaging studies: X-ray Chest: A single view study of the chest was reviewed and was negative for cardiomegaly, focal infiltrate, effusion, pulmonary edema, or wide mediastinum. Triage Nursing Note Reviewed Prior/Outside Records Reviewed Past Med/Surg History Problem List (Updated 09/23/23 @ 16:55 by Va Botello DO) Hyponatremia (Acute) Infection of skin of both ear lobes Accidental overdose (Acute) Confusion (Acute) Dislocation, shoulder, anterior Osteoarthritis of knees, bilateral Metatarsal fracture Anxiety Dementia (Acute) Closed fracture of fifth metatarsal bone (03/08/23) Hyponatremia Hyperlipidemia LDL goal <100 Fall Foot fracture, right (Acute 03/08/23) Traumatic ecchymosis of right lower leg (Acute) Ambulatory dysfunction (Acute) Acute pain of left knee (Acute) Leg edema, right Osteoarthritis of right knee Carr cyst Ambulatory dysfunction (Acute) Right knee pain (Acute) Acute on chronic systolic CHF (congestive heart failure) Pulmonary edema (Acute) Uric acid stone in urine Incontinence Gastroparesis (Acute) Carotid artery stenosis (Acute) Atherosclerotic heart disease of [place] coronary artery without angina pectoris (Acute) Anemia Bilateral knee pain Medical History Symptomatic anemia Hyperlipidemia History of pulmonary embolism Type 2 diabetes mellitus Anemia GERD (gastroesophageal reflux disease) Hyperlipidemia LDL goal <100 HTN (hypertension) Hospital discharge follow-up Productive cough Elevated vitamin B12 level Acute hypoxemic respiratory failure COVID-19 virus infection Metabolic encephalopathy Sepsis Acute dehydration Acute hypoxemic respiratory failure due to COVID-19 Rash Petechiae Encounter for pre-operative examination Carotid artery stenosis Gastroparesis Osteoarthritis Diverticular disease Diabetes mellitus, type 2 Myocardial Infarction Chronic obstructive pulmonary disease Long-term (current) use of anticoagulants, INR goal 2.0-3.0 Open wound of left breast Asthma Septic shock CKD (chronic kidney disease), stage III Multiple pulmonary emboli Anemia Systolic CHF, chronic Breast carcinoma, lobular CHF (congestive heart failure) Surgical History S/P debridement H/O vascular surgery History of removal of Port-a-Cath Hx of lumpectomy History of colonoscopy History of cataract surgery History of coronary artery bypass graft History of cardiac cath S/P lymph node biopsy S/P cholecystectomy Family History Father Lung cancer Brother Prostate cancer Myocardial infarction Other No family history of adverse response to anesthesia Denies family history of Colon cancer Ovarian cancer Breast cancer Social History Smoking Status: Former smoker Tobacco Type: Cigarettes Second Hand Exposure: No; Do You Dip or Chew Tobacco: No; Hx Alcohol Use: No Hx Substance Use: No Preferred Language: Mexican Communication Ability: Effective Visual Impairment: No Limitations Hearing Ability: Normal Dent Remover Required: No Beliefs That Will Affect Care: None marital status: / Current Living Situation: Alone Current Living Situation Comment: home alone; sister and dgtr help with meals current occupational status: retired Feels Safe at Home: Yes Safety Concerns: Feels Safe At This Time Dental Care, Regularly: Yes Physical Activity Frequency: Does not Exercise Seatbelt Use: always Assistive Devices: Glasses Allergies Allergies Allergy/AdvReac Type Severity Reaction Status Date / Time nitroglycerin AdvReac Intermediate BP Verified 09/21/23 11:07 Decreases, HR Increases tramadol AdvReac Intermediate faint Verified 09/21/23 11:07 feeling, mind foggy not able to think Home Meds Home Medications Medication Instructions Recorded Confirmed rosuvastatin 40 mg tablet (Crestor) 40 mg PO HS 12/13/17 09/22/23 furosemide 20 mg tablet 20 mg PO QAM 12/11/19 09/22/23 metoclopramide HCl 10 mg tablet 5 mg PO DIRECTED 12/11/19 09/22/23 (Reglan) acetaminophen 650 mg 1,300 mg PO UD 08/07/20 09/22/23 tablet,extended release calcium carbonate 600 mg-vitamin 1 cap PO QAM 11/09/21 09/22/23 D3 25 mcg (1,000 unit) capsule aspirin 81 mg tablet,delayed 81 mg PO DAILY 03/14/23 09/22/23 release Previous Rx's Medication Instructions Recorded albuterol sulfate 90 mcg/actuation 2 puff inhalation Q4H PRN 05/07/22 aerosol inhaler (ProAir HFA) shortness of breath #8.5 grams famotidine 20 mg tablet 20 mg PO DAILY #90 tabs 04/27/23 sertraline 50 mg tablet 50 mg PO DAILY #90 tabs 05/23/23 fluticasone propionate 230 1 puff inhalation BID #12 grams 06/10/23 mcg-salmeterol 21 mcg/actuation HFA inhaler (Advair HFA) metoprolol succinate 50 mg 50 mg PO BID #180 tabs 07/06/23 tablet,extended release 24 hr (Toprol XL) anastrozole 1 mg tablet (Arimidex) 1 mg PO QAM #90 tabs 08/24/23 potassium chloride 20 mEq 20 meq PO QAM #90 tabs 08/24/23 tablet,extended release(part/cryst) apixaban 5 mg tablet 5 mg PO BID #180 tabs 08/25/23 methylprednisolone 4 mg tablets in 4 mg PO UD #1 packet 09/21/23 a dose pack Results & Data (ED) Vital Signs Vital Signs - 24 hr 09/22/23 11:57 09/22/23 12:55 09/22/23 12:56 Temperature 36.5 C Temperature Source Skin Pulse Rate 65 73 Pulse Rate [Apical] Pulse Rhythm Regular Pulse Rhythm [Apical] Pulse Strength [Apical] Respiratory Rate 20 16 Respiratory Effort / Characteristics Non-Labored Spontaneous Respiratory Depth Normal Respiratory Pattern Regular Blood Pressure 117/67 Blood Pressure [Left Arm] Blood Pressure Mean 83 Blood Pressure Mean [Left Arm] Blood Pressure Position [Left Arm] Pulse Oximetry 95 98 98 Oxygen Delivery Method Room Air Room Air Room Air Sepsis Recent Fever Within 48 Hours No Sepsis New/Unexplained Change in Mental Status N/A Sepsis Action Taken by Nursing No Action Required 09/22/23 12:57 09/22/23 14:14 09/22/23 16:00 Temperature Temperature Source Pulse Rate 73 Pulse Rate [Apical] 68 68 Pulse Rhythm Pulse Rhythm [Apical] Regular Regular Pulse Strength [Apical] Normal Normal Respiratory Rate 18 16 Respiratory Effort / Characteristics Non-Labored Spontaneous Non-Labored Spontaneous Respiratory Depth Normal Normal Respiratory Pattern Regular Regular Blood Pressure Blood Pressure [Left Arm] 121/71 139/65 Blood Pressure Mean Blood Pressure Mean [Left Arm] 87 89 Blood Pressure Position [Left Arm] Lying Pulse Oximetry 93 95 Oxygen Delivery Method Room Air Room Air Sepsis Recent Fever Within 48 Hours Sepsis New/Unexplained Change in Mental Status Sepsis Action Taken by Nursing 09/22/23 17:06 09/22/23 17:10 Temperature Temperature Source Pulse Rate 69 Pulse Rate [Apical] 68 Pulse Rhythm Pulse Rhythm [Apical] Regular Pulse Strength [Apical] Normal Respiratory Rate 16 Respiratory Effort / Characteristics Non-Labored Spontaneous Respiratory Depth Normal Respiratory Pattern Regular Blood Pressure Blood Pressure [Left Arm] Blood Pressure Mean Blood Pressure Mean [Left Arm] Blood Pressure Position [Left Arm] Pulse Oximetry 95 Oxygen Delivery Method Room Air Sepsis Recent Fever Within 48 Hours Sepsis New/Unexplained Change in Mental Status Sepsis Action Taken by Nursing Laboratory Data 09/23/23 08:26 09/23/23 08:17 Lab Results 09/22/23 09/22/23 09/22/23 Range/Units 13:03 14:12 15:14 WBC 7.07 (4.8-10.8) K/ul RBC 4.86 (4.20-5.40) M/uL Hgb 14.5 (12.0-16.0) g/dl Hct 44.6 (37.0-47.0) % MCV 91.8 (80.0-100.0) fL MCH 29.8 (25.0-34.0) pg MCHC 32.5 (32.0-36.0) g/dL RDW Std Deviation 45.9 (36.4-46.3) fL RDW Coeff of Cathy 13.4 (11.5-14.5) % Plt Count 200 (130-400) K/uL MPV 9.2 L (9.4-12.4) fL Immature Gran % (Auto) 0.4 % Neut % (Auto) 72.3 % Lymph % (Auto) 14.4 % [place] % (Auto) 10.7 % Eos % (Auto) 1.6 % Baso % (Auto) 0.6 % Neut # (Auto) 5.11 (1.40-6.50) K/uL Lymph # (Auto) 1.02 L (1.20-3.40) K/uL [place] # (Auto) 0.76 H (0.11-0.59) K/uL Eos # (Auto) 0.11 (0.00-0.50) K/uL Baso # (Auto) 0.04 (0.00-0.20) K/uL Immature Gran # (Auto) 0.03 (0.01-0.20) K/uL PT 11.9 11.7 (9.0-12.0) Seconds INR 1.1 1.1 (0.9-1.1) APTT 28 (21-31) Seconds PTT Ratio 1.0 Sodium 132 L (136-145) mmol/L Potassium 5.0 (3.5-5.1) mmol/L Chloride 102 (98-107) mmol/L Carbon Dioxide 23 (21-32) mmol/L Anion Gap 7 (3-11) BUN 13 (6-23) mg/dl Creatinine 0.61 (0.6-1.2) mg/dl Est Cr Clr Drug Dosing 56.6 ml/min Est GFR ( Amer) 95.8 ml/min Est GFR (Non-Af Amer) 82.7 ml/min BUN/Creatinine Ratio 21.3 H (10-20) Glucose 79 (70-99(Fasting)) mg/dl Calcium 8.8 (8.6-10.3) mg/dl Magnesium 2.2 (1.7-2.4) mg/dl Total Bilirubin 0.5 (0.2-1.0) mg/dl AST 17 (13-39) U/L ALT 13 (7-52) U/L Alkaline Phosphatase 113 H (34-104) U/L Troponin I High Sens 8.8 (0-14) pg/ml Total Protein 6.8 (6.0-8.3) gm/dl Albumin 3.8 (3.4-5.0) gm/dl Globulin 3.0 (2.5-4.0) gm/dl Albumin/Globulin Ratio 1.3 (0.9-2) TSH 1.689 (0.300-4.500) uIu/ml Urine Color Yellow Urine Appearance Clear (Clear) Urine pH 7.0 (4.5-7.5) Ur Specific [place] 1.011 (1.000-1.030) Urine Protein Negative (Negative) Urine Glucose (UA) Negative (Negative) Urine Ketones Negative (Negative) Urine Blood Trace H (Negative) Urine Nitrite Negative (Negative) Urine Bilirubin Negative (Negative) Urine Urobilinogen Negative (Negative) Ur Leukocyte Esterase Trace H (Negative) Urine WBC (Auto) 0-5 (0-5) /hpf Urine RBC (Auto) 3-5 H (0-2) /hpf U Hyaline Cast (Auto) 0-2 (0-2) /lpf U Epithel Cells (Auto) 0-2 (0-2) /hpf Urine Bacteria (Auto) None Seen (None Seen) Salicylates < 3.0 L (3.0-30) mg/dl Acetaminophen < 3 L (10-30) ug/ml Administered Medications Acetaminophen (Acetaminophen 500 Mg Tab) 500 mg PO Q8H PRN PRN Reason: Mild Pain (Scale 1, 2, 3) Stop: 10/23/23 08:55 Last Admin: 09/23/23 09:19 Dose: 500 mg Documented By: FARZANA Anastrozole (Anastrozole 1 Mg Tab) 1 [facility] [place] Stop: 10/23/23 08:59 Last Admin: 09/23/23 09:19 Dose: 1 mg Documented By: FARZANA Co-signed By: SYLVIA Bacitracin (Bacitracin Oint 14 Gm Tube) 1 appln EXT TID ELÍAS Stop: 10/22/23 20:59 Last Admin: 09/23/23 13:41 Dose: 1 appln Documented By: Admin: 09/23/23 07:58 Dose: 1 appln Documented By: Admin: 09/22/23 23:47 Dose: 1 appln Documented By: FRANCISCO Furosemide (Furosemide 20 Mg Tab) 20 mg PO QAM ELÍSA Stop: 10/23/23 08:59 Last Admin: 09/23/23 11:19 Dose: 20 mg Documented By: FARZANA Metoprolol Succinate (Metoprolol Succ 50mg Ext Rel Tab) 50 mg PO BID ELÍAS Stop: 10/23/23 08:59 Last Admin: 09/23/23 11:19 Dose: 50 mg Documented By: FARZANA Discontinued Medications Sodium Chloride (Nss) 1,000 mls @ 125 mls/hr IV .Q8H ELÍAS Stop: 10/22/23 14:59 Last Infusion: 09/22/23 23:07 Dose: Infused Documented By: Admin: 09/22/23 16:05 Dose: 125 mls/hr Documented By: PEET Lactated Ringer's (Lr) 1,000 mls @ 100 mls/hr IV .Q10H ELÍAS Stop: 09/23/23 05:44 Last Infusion: 09/23/23 07:52 Dose: Infused Documented By: Admin: 09/22/23 23:01 Dose: 100 mls/hr Documented By: FRANCISCO Insulin Aspart (Insulin Aspart Per Unit Charge) 0 units SC ACHS ELÍAS Stop: 10/22/23 16:29 Last Admin: 09/23/23 12:06 Dose: Not Given Documented By: Admin: 09/23/23 08:39 Dose: Not Given Documented By: Admin: 09/22/23 19:02 Dose: Not Given Documented By: ROGER Co-signed By: PETE Admin: 09/22/23 18:34 Dose: Not Given Documented By: NEETA Sertraline HCl (Sertraline Hcl 50 Mg Tablet) 50 mg PO DAILY ELÍAS Stop: 10/23/23 08:59 Last Admin: 09/23/23 11:19 Dose: 50 mg Documented By: FARZANA Imaging Data Radiologist's Impression: Chest X-Ray 09/22/23 12:04 XR chest 1V portable CLINICAL HISTORY: Weakness TECHNIQUE: Single frontal radiograph of the chest was obtained. Comparison: Comparison is made to chest radiograph 01/06/2023 FINDINGS: Median sternotomy wires are unchanged. Cardiomegaly is noted. The lungs are clear. No evidence of pleural effusion or pneumothorax. IMPRESSION: No acute chest disease. ACT 112: Negative or not required by law. Electronically signed by: Jean Paul Mak M.D. 09/22/2023 1:[address] 09/22/23 12:55 CT SCAN OF THE BRAIN WITHOUT IV CONTRAST CLINICAL HISTORY: Change in mental status COMPARISON STUDY: CT of the brain dated 07/31/2020. TECHNIQUE: Unenhanced axial CT scan of the brain is performed from the vertex to the skull base. A dose lowering technique was utilized adhering to the principles of ALARA. CT DOSE: 625.8 mGy.cm FINDINGS: Brain parenchyma: There is age-related involutional change noting moderate subcortical and periventricular microangiopathic disease. There is no hemorrhage, mass effect, or evidence of acute territorial ischemia by CT criteria. Mineralization is noted in the basal ganglia. [place]-white matter differentiation is preserved. No extra-axial fluid collection is seen. Ventricles, sulci, cisterns: Prominent secondary to involutional change. Intracranial vasculature: There is atherosclerotic calcification of the cavernous carotid and vertebral arteries. Calvarium: Unremarkable. Sinuses and mastoids: There is a 9 mm retention cyst in the right maxillary antrum. Trace mucosal thickening is seen on the left. The remaining paranasal sinuses are clear. The mastoid air cells are well pneumatized. Orbits: The bony orbits are grossly intact. There are bilateral ocular lens implants. IMPRESSION: There is no hemorrhage, mass effect, or evidence of acute territorial ischemia by CT criteria. ACT 112: Negative or not required by law. Electronically signed by: Kodi Ro M.D. 09/22/2023 1:30 PM Discharge Plan Visit Data Chief Complaint: Overdose (Accidental) Stated Complaint: OVERDOSE ON DAILY MEDS ACCIDENTAL ED Provider: Va Botello Discharge Problem: Confusion, Accidental overdose, Hyponatremia, Dementia Patient Disposition: Admitted As Inpatient Discharge Instructions Interventions: ED Discharge Assessment Last Done: 09/22/23 22:12
--- NOTE | 2023-09-22 13:22 | XRay Report ---
XR chest 1V portable CLINICAL HISTORY: Weakness TECHNIQUE: Single frontal radiograph of the chest was obtained. Comparison: Comparison is made to chest radiograph 01/06/2023 FINDINGS: Median sternotomy wires are unchanged. Cardiomegaly is noted. The lungs are clear. No evidence of ple ural effusion or pneumothorax. IMPRESSION: No acute chest disease. ACT 112: Negative or not required by law. Electronically signed by: Jean Paul Mak M.D. 09/22/2023 1:21 PM
[2023-09-22 13:32] LABS: Basophils # (auto) 0.04 K/uL (0.00-0.20); Basophils % (auto) 0.6 %; Eosinophils # (auto) 0.11 K/uL (0.00-0.50); Eosinophils % (auto) 1.6 %; Hematocrit (blood only) 44.6 % (37.0-47.0); Hemoglobin 14.5 g/dl (12.0-16.0); Immature Granulocytes # (auto) 0.03 K/uL (0.01-0.20); Immature Granulocytes % (auto) 0.4 %; Lymphocytes # (auto) 1.02 K/uL (1.20-3.40); Lymphocytes % (auto) 14.4 %; Mean Corpuscular Hemoglobin 29.8 pg (25.0-34.0); Mean Corpuscular Hgb Conc 32.5 g/dL (32.0-36.0); Mean Corpuscular Volume 91.8 fL (80.0-100.0); Mean Platelet Volume 9.2 fL (9.4-12.4); Monocytes # (auto) 0.76 K/uL (0.11-0.59); Monocytes % (auto) 10.7 %; Neutrophils # (auto) 5.11 K/uL (1.40-6.50); Neutrophils % (auto) 72.3 %; Platelet Count 200 K/uL (130-400); RDW Coefficient of Variation 13.4 % (11.5-14.5); RDW Standard Deviation 45.9 fL (36.4-46.3); Red Blood Count 4.86 M/uL (4.20-5.40); White Blood Count 7.07 K/ul (4.8-10.8)
--- NOTE | 2023-09-22 13:32 | CT Scan Report ---
CT SCAN OF THE BRAIN WITHOUT IV CONTRAST CLINICAL HISTORY: Change in mental status COMPARISON STUDY: CT of the brain dated 07/31/2020. TECHNIQUE: Unenhanced axial CT scan of the brain is performed from the vertex to the skull base. A do se lowering technique was utilized adhering to the principles of ALARA. CT DOSE: 625.8 mGy.cm FINDINGS: Brain parenchyma: There is age-related involutional change noting moderate subcortical and periventri cular microangiopathic disease. There is no hemorrhage, mass effect, or evidence of acute territorial ischemia by CT criteria. Mineralization is noted in the basal ganglia. [place]-white matter differentia tion is preserved. No extra-axial fluid collection is seen. Ventricles, sulci, cisterns: Prominent secondary to involutional change. Intracranial vasculature: There is atherosclerotic calcification of the cavernous carotid and vertebr al arteries. Calvarium: Unremarkable. Sinuses and mastoids: There is a 9 mm retention cyst in the right maxillary antrum. Trace mucosal thi ckening is seen on the left. The remaining paranasal sinuses are clear. The mastoid air cells are wel l pneumatized. Orbits: The bony orbits are grossly intact. There are bilateral ocular lens implants. IMPRESSION: There is no hemorrhage, mass effect, or evidence of acute territorial ischemia by CT lindy melton. ACT 112: Negative or not required by law. Electronically signed by: Kodi Ro M.D. 09/22/2023 1:30 PM
[2023-09-22 13:42] LABS: Albumin Level 3.8 gm/dl (3.4-5.0); Bilirubin,Total 0.5 mg/dl (0.2-1.0); Calcium 8.8 mg/dl (8.6-10.3); Magnesium 2.2 mg/dl (1.7-2.4)
[2023-09-22 13:48] LABS: Albumin Globulin Ratio 1.3 (0.9-2); BUN Creatinine Ratio 21.3 (10-20); Creatinine Clr Calc Pharmacy 56.6 ml/min; Est GFR (African American) 95.8 ml/min; Est GFR (Non-African American) 82.7 ml/min; Total Protein 6.8 gm/dl (6.0-8.3)
--- NOTE | 2023-09-22 13:49 | Electrocardiogram Report ---
Test Reason : Blood Pressure : / mmHG Vent. Rate : 076 BPM Atrial Rate : 076 BPM P-R Int : 214 ms QRS Dur : 100 ms QT Int : 396 ms P-R-T Axes : 062 013 171 degrees QTc Int : 445 ms Sinus rhythm with 1st degree A-V block Left ventricular hypertrophy with repolarization abnormality Possible Old Anterior infarct (cited on or before 22-SEP-2023) Abnormal ECG When compared with ECG of 06-JAN-2023 11:25, No significant change was found Confirmed by Jaime Draper ([id number]) on 09/22/2023 1:49:15 PM Referred By: Confirmed By:Jaime Draper
[2023-09-22 13:54] LABS: Troponin I High Sensitivity 8.8 pg/ml (0-14)
[2023-09-22 13:56] LABS: INR 1.1 (0.9-1.1); Partial Thromboplastin Time 28 Seconds (21-31); Prothrombin Time 11.9 Seconds (9.0-12.0)
[2023-09-22 14:03] LABS: Thyroid Stimulating Hormone 1.689 uIu/ml (0.300-4.500)
[2023-09-22 14:23] LABS: Appearance Urine Clear (Clear); Bacteria Urine Automated None Seen (None Seen); Bilirubin Urine Negative (Negative); Blood Urine Trace (Negative); Cast Urine Automated 0-2 /lpf (0-2); Color Urine Yellow; Epithelial Cell Urine Auto 0-2 /hpf (0-2); Glucose Urine UA Negative (Negative); Ketones Urine Negative (Negative); Leukocyte Esterase Urine Trace (Negative); Nitrite Urine Negative (Negative); Protein Urine Negative (Negative); Specific Gravity Urine 1.011 (1.000-1.030); Urobilinogen Urine Negative (Negative); WBC Urine Automated 0-5 /hpf (0-5)
--- NOTE | 2023-09-22 15:17 | History & Physical Report ---
Date of Service September 22, 2023 Assessment & Plan (1) Accidental overdose: Plan: Admit to med/telemetry on pulse oximetry Vitals have remained stable since arrival to the ED, patient is in no acute distress, and nontoxic-appearing Presented to the ED alongside her daughter who was concerned the patient may have taken 3 days worth of her medications this morning At this time we cannot officially confirm that the patient took all of these medications or if she possibly misplaced them Chronic medications include 5 mg Eliquis, 81 mg aspirin, 20 mg furosemide, 50 mg metoprolol succinate, 20 mEq p.o. KCl, 40 mg Crestor, and 50 mg of sertraline, The ED did contact and speak with the Poison Control Center, at this time their recommendations were to continue to monitor on telemetry overnight, and obtain salicylate level, acetaminophen level, and INR for further evaluation Will continue light IV hydration x 1 bag for now If vitals and labs remained stable tomorrow can likely resume her normal medications Will repeat CBC, CMP, mag, PT/INR this evening Bilateral MT stockings for DVT prophylaxis Heart healthy/DM type II diet with 1800 mL fluid restriction AM CBC, CMP, mag, PT/INR (2) Confusion: Plan: Patient's daughter reports progressive cognitive decline over the past 6 months with increased decline over the past 2 weeks Symptoms include increased forgetfulness, increased anxiety, recurrent phone calls to her daughter, losing keys Patient has a nonfocal neurologic exam, CT of the head/brain without contrast was negative for acute findings We will attempt to obtain MRI of the brain without contrast on admission for further evaluation, if this is negative for acute findings this likely indicates progression in her dementia Patient has a significant family history of early onset dementia as both of her sisters passed due to complications of early onset dementia Patient will be high risk for hospital-acquired delirium, fall precautions with bed alarm have been ordered along with aspiration precautions If patient begins to get more confused/agitated would highly recommend one-to-one observation as use of antipsychotics at this time would be contraindicated until we can confirm she remains stable due to possible accidental overdose earlier today PT/OT/case management consults have been placed as patient will likely require placement at the time of discharge (3) Infection of skin of both ear lobes: Plan: Patient has mild skin irritation/superficial infection of the bilateral earlobes on exam No signs of cellulitis or drainage Patient's daughter explains that her mother has been leaving her clip-on earrings on overnight, her daughter removed the clip-on earrings this morning prior to ED arrival For now we will start 3 times daily topical bacitracin, continue to monitor for improvement with treatment (4) Type 2 diabetes mellitus: Plan: Monitor BSG ACHS, goal is [id number] Per review of the patient's updated medication list, she is not on any antihyperglycemic regimen at home Patient's last hemoglobin A1c was 5.4 on 08/25/2023 For now we will start CF of 50 and CR of 15 ACHS Hold basal insulin for now to avoid hypoglycemia as we are unsure how much she will eat during her admission Adjust regimen as needed (5) History of pulmonary embolism: Plan: Patient has a history of recurrent DVT and PEs, which is the reason she is on twice daily Eliquis Will hold Eliquis today as we are unsure if she took extra doses along with other home medications this a.m. prior to daughter's arrival No signs of bleeding INR ordered in the ED is currently in process Continue to monitor for signs of bleeding and trend INR Can consider restarting Eliquis tomorrow if patient remains stable and INR remained stable (6) HTN (hypertension): Plan: Currently stable Hold metoprolol, furosemide for now until we confirm she will remain stable after possible accidental overdose this morning Continue to monitor on telemetry for now Plan The patient was discussed with Dr. Carbajal at the time of the admission History of Present Illness Chief Complaint: Progressive confusion, possible unintentional overdose of home medications Primary Care Provider: Lucian Noe MD Gena is an 87-year-old female with a past medical history significant for HFrEF, HTN, HLD, DM2, CAD s/p CABG, recurrent DVT w/ history of PE on chronic Eliquis COPD, asthma, GERD, CKD3, breast cancer, anemia, and dementia who presented to the [facility] ED on 09/22/2023 accompanied by her daughter due to concerns for progressive confusion and anxiety over the past 2 weeks and concerns that she may have taken multiple doses of her home medications today. The patient was seen at her PCP yesterday for the ongoing confusion, anxiety, and bilateral knee arthritis causing significant pain and ambulatory dysfunction. Outpatient workup has been started by her PCP with plans for MRI of the brain. The patient lives at home alone, her daughter lives approximately 12 miles away and checks on her frequently. This a.m. her daughter found the patient confused and asking where her car keys were, she was also noted to be drowsy. The patient's daughter helps the patient organize her medications and noticed this a.m. that the patient may have taken her doses of medication for today (09/22/2023), tomorrow (09/22), and Saturdays (09/23). The patient remained stable while in the ED. Labs including CBC, CMP, mag, high-sensitivity troponin, TSH, and UA were unremarkable. CT of the head/brain without contrast was read as negative for acute findings. Chest x-ray was also read as negative for acute findings. EKG shows sinus rhythm with first-degree AV block without acute changes compared to previous. I did confirm with the ED staff that they called and spoke with poison control. At this time recommendations are to continue to monitor the patient on telemetry, poison control also recommended obtaining salicylate level, acetaminophen level, and INR at this time. Prior to admission the patient was started on normal saline at 125 mL/h. Patient was lying in bed in no acute distress at the time of exam with her daughter/POA at bedside history was obtained primarily from the patient's daughter due to her current mental status. Her daughter explains that the patient has been having ongoing cognitive decline decline over the past 6 months but significantly worse over the past 2 weeks. The patient has been getting significantly more forgetful especially in terms of medications. Her daughter has been trying as much as she can to help the patient organize her medications, write notes to remind the patient which medications to take when, and speaking to her mother multiple times a day on the phone whenever she is unable to be there in person. The patient has baseline ambulatory dysfunction due to severe arthritis in the bilateral knees and a chronically dislocated right shoulder which has not been surgically repaired due to patient being high risk surgical candidate. The patient's daughter explains that she arrived to the patient's house late this morning after picking up the patient's prescriptions. She found the patient sitting on her front porch appearing fatigued. The patient's daug hter was concerned as the patient was not watching the Sharma of right, which she normally watches daily. The patient's daughter checked the patient's medication bottles and noticed that the pills for today, 09/22, and 09/23 were all gone. Her daughter cannot confirm whether or not the patient did take all of these and the patient is an unreliable historian. The patient's daughter explains that she has tried her best but at this time the patient is too unsafe at home, placement will likely be needed on discharge. The patient denied any complaints including pain, nausea, vomiting, chest pain, shortness of breath. I discussed CODE STATUS with the patient's daughter as she is the patient's power of collections attorney. Due to the patient's ongoing cognitive decline and significant decline in quality of life the patient's family now wishes for her to be a DNR/DNI. They will continue to update the patient's living will to reflect this. Of note, patient's daughter explains that the patient's 2 sisters both passed due to complications from early onset dementia. Please refer to Dr. Carbajal's attestation for any changes to the treatment plan Allergies Allergy/AdvReac Type Severity Reaction Status Date / Time nitroglycerin AdvReac Intermediate BP Verified 09/21/23 11:07 Decreases, HR Increases tramadol AdvReac Intermediate faint Verified 09/21/23 11:07 feeling, mind foggy not able to think Home Medications Medication Instructions Recorded Confirmed Type rosuvastatin 40 mg tablet (Crestor) 40 mg PO HS 12/13/17 09/22/23 History furosemide 20 mg tablet 20 mg PO QAM 12/11/19 09/22/23 History metoclopramide HCl 10 mg tablet 5 mg PO DIRECTED 12/11/19 09/22/23 History (Reglan) acetaminophen 650 mg 1,300 mg PO UD 08/07/20 09/22/23 History tablet,extended release calcium carbonate 600 mg-vitamin 1 cap PO QAM 11/09/21 09/22/23 History D3 25 mcg (1,000 unit) capsule albuterol sulfate 90 mcg/actuation 2 puff inhalation Q4H PRN 05/07/22 09/22/23 Rx aerosol inhaler (ProAir HFA) shortness of breath #8.5 grams aspirin 81 mg tablet,delayed 81 mg PO DAILY 03/14/23 09/22/23 History release famotidine 20 mg tablet 20 mg PO DAILY #90 tabs 04/27/23 09/22/23 Rx sertraline 50 mg tablet 50 mg PO DAILY #90 tabs 05/23/23 09/22/23 Rx fluticasone propionate 230 1 puff inhalation BID #12 grams 06/10/23 09/22/23 Rx mcg-salmeterol 21 mcg/actuation HFA inhaler (Advair HFA) metoprolol succinate 50 mg 50 mg PO BID #180 tabs 07/06/23 09/22/23 Rx tablet,extended release 24 hr (Toprol XL) anastrozole 1 mg tablet (Arimidex) 1 mg PO QAM #90 tabs 08/24/23 09/22/23 Rx potassium chloride 20 mEq 20 meq PO QAM #90 tabs 08/24/23 09/22/23 Rx tablet,extended release(part/cryst) apixaban 5 mg tablet 5 mg PO BID #180 tabs 08/25/23 09/22/23 Rx methylprednisolone 4 mg tablets in 4 mg PO UD #1 packet 09/21/23 09/22/23 Rx a dose pack Past Med/Surg History Problem List (Updated 09/22/23 @ 15:49 by Jim Leach PA-C) Infection of skin of both ear lobes Accidental overdose (Acute) Confusion (Acute) Dislocation, shoulder, anterior Osteoarthritis of knees, bilateral Metatarsal fracture Anxiety Dementia Closed fracture of fifth metatarsal bone (03/08/23) Hyponatremia Hyperlipidemia LDL goal <100 Fall Foot fracture, right (Acute 03/08/23) Traumatic ecchymosis of right lower leg (Acute) Ambulatory dysfunction (Acute) Acute pain of left knee (Acute) Leg edema, right Osteoarthritis of right knee Carr cyst Ambulatory dysfunction (Acute) Right knee pain (Acute) Acute on chronic systolic CHF (congestive heart failure) Pulmonary edema (Acute) Uric acid stone in urine Incontinence Gastroparesis (Acute) Carotid artery stenosis (Acute) Atherosclerotic heart disease of [place] coronary artery without angina pectoris (Acute) Anemia Bilateral knee pain Medical History Symptomatic anemia Hyperlipidemia History of pulmonary embolism Type 2 diabetes mellitus Anemia GERD (gastroesophageal reflux disease) Hyperlipidemia LDL goal <100 HTN (hypertension) Hospital discharge follow-up Productive cough Elevated vitamin B12 level Acute hypoxemic respiratory failure COVID-19 virus infection Metabolic encephalopathy Sepsis Acute dehydration Acute hypoxemic respiratory failure due to COVID-19 Rash Petechiae Encounter for pre-operative examination Carotid artery stenosis Gastroparesis Osteoarthritis Diverticular disease Diabetes mellitus, type 2 Myocardial Infarction Chronic obstructive pulmonary disease Long-term (current) use of anticoagulants, INR goal 2.0-3.0 Open wound of left breast Asthma Septic shock CKD (chronic kidney disease), stage III Multiple pulmonary emboli Anemia Systolic CHF, chronic Breast carcinoma, lobular CHF (congestive heart failure) Surgical History S/P debridement H/O vascular surgery History of removal of Port-a-Cath Hx of lumpectomy History of colonoscopy History of cataract surgery History of coronary artery bypass graft History of cardiac cath S/P lymph node biopsy S/P cholecystectomy Family History Father Lung cancer Brother Prostate cancer Myocardial infarction Other No family history of adverse response to anesthesia Denies family history of Colon cancer Ovarian cancer Breast cancer Social History Smoking Status: Former smoker Tobacco Type: Cigarettes Second Hand Exposure: No; Do You Dip or Chew Tobacco: No; Hx Alcohol Use: No Hx Substance Use: No Preferred Language: Kazakh Communication Ability: Effective Visual Impairment: No Limitations Hearing Ability: Normal Wall Taper Required: No Beliefs That Will Affect Care: None marital status: / Current Living Situation: Alone current occupational status: retired Feels Safe at Home: Yes Dental Care, Regularly: Yes Physical Activity Frequency: Does not Exercise Seatbelt Use: always Assistive Devices: Walker and Other Physical Exam Physical Exam: Physical Exam: General: In no acute distress, stated age, pleasantly confused, non-toxic appearing HEENT: Normocephalic, atraumatic, no scleral icterus, pupils around round, symmetrical, and reactive to light, moist mucus membranes, trachea midline, no thyromegaly Chest/Pulm: No respiratory distress, symmetrical chest expansion, clear breath sounds throughout Cardiac: RRR, no murmurs noted Abdomen: Negative for ascites and bruising, normoactive bowel sounds, soft, non-tender to palpation throughout Musculoskeletal: Symmetrical and without signs of acute trauma, decreased ROM of the RUE compared to left due to chronic right shoulder dislocation, no acute trauma Extremities: Radial, dorsalis pedis, and posterior tibial pulses are intact and symmetrical, no edema noted in the BL LE's Skin: Patient noted to have irritation on the BL ear lobes due to extended wearing of clip-on earrings per daughter, no significant erythema or signs of significant infection noted Neuro: Alert and oriented to person only, no focal defects, CN II-XII tested and intact, no tremors noted Psych: No acute distress,Pleasantly confused and laughing during exam, currently calm and cooperative during the exam Results & Data Results & Data Vital Signs (Past 12 Hours) Vital Signs Temp Pulse Pulse Resp BP BP Pulse Ox 09/22/23 14:14 68 18 121/71 93 09/22/23 12:57 73 09/22/23 12:56 98 09/22/23 12:55 73 16 98 09/22/23 11:57 36.5 C 65 20 117/67 95 O2 Del Method 09/22/23 14:14 Room Air 09/22/23 12:57 09/22/23 12:56 Room Air 09/22/23 12:55 Room Air 09/22/23 11:57 Room Air Laboratory Results Abnormal lab results 09/22/23 09/22/23 Range/Units 13:03 14:12 MPV 9.2 L (9.4-12.4) fL Lymph # (Auto) 1.02 L (1.20-3.40) K/uL Arthur # (Auto) 0.76 H (0.11-0.59) K/uL Sodium 132 L (136-145) mmol/L BUN/Creatinine Ratio 21.3 H (10-20) Alkaline Phosphatase 113 H (34-104) U/L Urine Blood Trace H (Negative) Ur Leukocyte Esterase Trace H (Negative) Urine RBC (Auto) 3-5 H (0-2) /hpf Diagnostic Findings Chest X-Ray 09/22/23 12:04 XR chest 1V portable CLINICAL HISTORY: Weakness TECHNIQUE: Single frontal radiograph of the chest was obtained. Comparison: Comparison is made to chest radiograph 01/06/2023 FINDINGS: Median sternotomy wires are unchanged. Cardiomegaly is noted. The lungs are clear. No evidence of pleural effusion or pneumothorax. IMPRESSION: No acute chest disease. ACT 112: Negative or not required by law. Electronically signed by: Jean Paul Mak M.D. 09/22/2023 1:[address] 09/22/23 12:55 CT SCAN OF THE BRAIN WITHOUT IV CONTRAST CLINICAL HISTORY: Change in mental status COMPARISON STUDY: CT of the brain dated 07/31/2020. TECHNIQUE: Unenhanced axial CT scan of the brain is performed from the vertex to the skull base. A dose lowering technique was utilized adhering to the principles of ALARA. CT DOSE: 625.8 mGy.cm FINDINGS: Brain parenchyma: There is age-related involutional change noting moderate subcortical and periventricular microangiopathic disease. There is no hemorrhage, mass effect, or evidence of acute territorial ischemia by CT criteria. Mineralization is noted in the basal ganglia. [place]-white matter differentiation is preserved. No extra-axial fluid collection is seen. Ventricles, sulci, cisterns: Prominent secondary to involutional change. Intracranial vasculature: There is atherosclerotic calcification of the cavernous carotid and vertebral arteries. Calvarium: Unremarkable. Sinuses and mastoids: There is a 9 mm retention cyst in the right maxillary antrum. Trace mucosal thickening is seen on the left. The remaining paranasal sinuses are clear. The mastoid air cells are well pneumatized. Orbits: The bony orbits are grossly intact. There are bilateral ocular lens implants. IMPRESSION: There is no hemorrhage, mass effect, or evidence of acute territorial ischemia by CT criteria. ACT 112: Negative or not required by law. Electronically signed by: Kodi Ro M.D. 09/22/2023 1:30 PM ECG Additional Comments: Sinus rhythm with 1st degree A-V block Left ventricular hypertrophy with repolarization abnormality Possible Old Anterior infarct (cited on or before 22-SEP-2023) Abnormal ECG When compared with ECG of 06-JAN-2023 11:25, No significant change was found Confirmed by Jamie Draper ([id number]) on 09/22/2023 1:49:15 PM Code Status & VTE Plan Code Status DNR/DNI VTE Prophylaxis Plan VTE Prophylaxis will be ordered: Yes Supervising Physician Co-Signing Physician Notes patient was seen and examined, agree with above assessment and plan GENERAL: alert, well appearing, well nourished, no distress, non-toxic EYE EXAM: normal conjunctiva, PERRL and EOM's grossly intact OROPHARYNX: no exudate, no erythema, lips, buccal mucosa, and tongue normal and mucous membranes are moist NECK: supple, no nuchal rigidity, no adenopathy, non-tender LUNGS: Clear to auscultation. Normal chest wall mechanics, no w/r/r HEART: no murmurs, S1 normal and S2 normal ABDOMEN: abdomen soft, non-tender, normo-active bowel sounds, no masses, no rebound or guarding. BACK: Back is symmetrical on inspection and there is no deformity, no midline tenderness, no CVA tenderness. SKIN: no rashes, petechiae, orbruising UPPER EXTREMITIES: upper extremities are grossly normal. FROM, nml pulses b/l. LOWER EXTREMITIES: No pitting edema. FROM, nml pulses b/l. NEURO EXAM: Normal sensorium, cranial nerves II-XII grossly intact, normal speech, no facial droop,nogross weakness of arms, no gross weakness of legs. Gross sensation intact. No ataxia. brought to ER with increased confusion as per daughter present at bedside, patient has advanced dementia, last 2 weeks noticed more progression, lately as per daughter patient was obsessed with her medication, obviously took 3 days for fourth medication including Eliquis, which she takes for history of DVT PE, patient is alert, she does not know where she is at, does not know what today's date, knows her name Patient daughter's request assistance with her placement, she currently lives alone I reviewed her laboratory data, images Continue her current medications Recommend Ativan/Haldol as needed for agitation PG Care Time/CCT Total # of Minutes Spent Total Time Spent with Patient: Total time spent is greater than 50% in coordination of care (as documented) at patient's floor/unit and/or counseling patient: Coding [place] [address] INT INP/OBS CARE 3/75MIN Patient Type Established Medical Decision Making High Complexity Diagnoses Accidental overdose T50.901A Confusion R41.0 Infection of skin of both ear lobes H60.393 Type 2 diabetes mellitus E11.9 History of pulmonary embolism Z86.711 Essential hypertension I10 Hypertension type: essential hypertension (6) HTN (hypertension) Hypertension type: essential hypertension Qualified Code(s): I10 - Essential (primary) hypertension
[2023-09-22] MEDS ORDERED: DEXTROSE 50% 50 ML SYRINGE IV PRN (15:20)
[2023-09-22] MEDS ORDERED: GLUCOSE 40% GEL 15 GM TUBE PO PRN (15:20)
[2023-09-22] MEDS ORDERED: GLUCOSE 10 TAB/TUBE PO PRN (15:20)
[2023-09-22] MEDS ORDERED: GLUCAGON FOR INJ 1 MG VIAL SQ PRN (15:20)
[2023-09-22] MEDS ORDERED: CARBOHYDRATES FOR HYPOGLYCEMIA PO PRN (15:20)
[2023-09-22 15:53] LABS: Acetaminophen < 3 ug/ml (10-30); Salicylate < 3.0 mg/dl (3.0-30)
[2023-09-22 16:05] LABS: INR 1.1 (0.9-1.1); Prothrombin Time 11.7 Seconds (9.0-12.0)
[2023-09-22] MEDS: SODIUM CHLORIDE 0.9% 1,000 ML IV SCH (16:05)
[2023-09-22] MEDS: INSULIN ASPART PER UNIT CHARGE SC SCH (18:34)
[2023-09-22 19:14] LABS: Basophils # (auto) 0.03 K/uL (0.00-0.20); Basophils % (auto) 0.5 %; Eosinophils % (auto) 1.8 %; Hematocrit (blood only) 38.9 % (37.0-47.0); Hemoglobin 12.9 g/dl (12.0-16.0); Immature Granulocytes # (auto) 0.02 K/uL (0.01-0.20); Immature Granulocytes % (auto) 0.4 %; Lymphocytes # (auto) 0.77 K/uL (1.20-3.40); Lymphocytes % (auto) 13.9 %; Mean Corpuscular Hemoglobin 29.9 pg (25.0-34.0); Mean Corpuscular Hgb Conc 33.2 g/dL (32.0-36.0); Mean Platelet Volume 8.7 fL (9.4-12.4); Monocytes # (auto) 0.59 K/uL (0.11-0.59); Monocytes % (auto) 10.7 %; Neutrophils # (auto) 4.02 K/uL (1.40-6.50); Neutrophils % (auto) 72.7 %; Platelet Count 177 K/uL (130-400); RDW Coefficient of Variation 13.2 % (11.5-14.5); RDW Standard Deviation 43.6 fL (36.4-46.3); Red Blood Count 4.32 M/uL (4.20-5.40); White Blood Count 5.53 K/ul (4.8-10.8)
[2023-09-22 19:29] LABS: Albumin Globulin Ratio 1.5 (0.9-2); Albumin Level 3.5 gm/dl (3.4-5.0); Bilirubin,Total 0.5 mg/dl (0.2-1.0); Calcium 8.4 mg/dl (8.6-10.3); Globulin 2.4 gm/dl (2.5-4.0); Potassium 4.1 mmol/L (3.5-5.1); Total Protein 5.9 gm/dl (6.0-8.3)
[2023-09-22 19:38] LABS: INR 1.1 (0.9-1.1); Prothrombin Time 11.6 Seconds (9.0-12.0)
--- NOTE | 2023-09-22 21:51 | Communication Note ---
Date of Service: September 22, 2023 Spoke to the lab regarding the patient's increased Cr level as the ED Physicians were also experiencing significantly increased Cr levels. The lab confirmed that there was an issue with one of their machines and these samples are currently being re-run. At this time we are holding off on the initial plan listed in the addendum of the H&P. Sign out has been given to the night staff to move forward with the plan if the patient is truly in renal failure. The patient has remained stable throughout the day.
[2023-09-22] MEDS: LACTATED RINGER'S 1,000 ML IV SCH (23:01)
[2023-09-22 23:40] LABS: Creatinine Clr Calc Pharmacy 60.6 ml/min; Est GFR (Non-African American) 84.5 ml/min
[2023-09-22 23:44] LABS: BUN Creatinine Ratio 17.5 (10-20)
[2023-09-22] MEDS: BACITRACIN OINT 14 GM TUBE EXT SCH (23:47)
--- NOTE | 2023-09-23 00:43 | Magnetic Resonance Report ---
Exam(s): MRI HEAD Without Contrast EXAM: MR Head Without Intravenous Contrast CLINICAL HISTORY: Reason for exam: Progressive confusion. TECHNIQUE: Magnetic resonance images of the head/brain without intravenous contrast in multiple planes. COMPARISON: Comparison made to prior head CT from April 04, 2017. FINDINGS: Brain: Remote ischemic injury of the left cerebellum. Mild nonspecific white matter changes. The flow voids at the base of the brain are intact. No mass. No hemorrhage. No acute infarct. Ventricles: Unremarkable. No ventriculomegaly. Bones/joints: Hyperostosis frontalis interna. No acute fracture. Sinuses: Unremarkable as visualized. No acute sinusitis. Mastoid air cells: Unremarkable as visualized. No mastoid effusion. Orbits: Bilateral lens replacements. IMPRESSION: No evidence of acute intracranial pathology. Electronically signed by: Trisha Tian MD 09/23/23 00:42 AM
[2023-09-23 08:56] LABS: Basophils # (auto) 0.04 K/uL (0.00-0.20); Basophils % (auto) 0.7 %; Eosinophils # (auto) 0.09 K/uL (0.00-0.50); Eosinophils % (auto) 1.6 %; Hematocrit (blood only) 42.4 % (37.0-47.0); Hemoglobin 13.7 g/dl (12.0-16.0); Immature Granulocytes # (auto) 0.02 K/uL (0.01-0.20); Immature Granulocytes % (auto) 0.4 %; Lymphocytes # (auto) 0.72 K/uL (1.20-3.40); Lymphocytes % (auto) 12.9 %; Mean Corpuscular Hemoglobin 29.8 pg (25.0-34.0); Mean Corpuscular Hgb Conc 32.3 g/dL (32.0-36.0); Mean Corpuscular Volume 92.2 fL (80.0-100.0); Mean Platelet Volume 8.9 fL (9.4-12.4); Monocytes % (auto) 10.7 %; Neutrophils # (auto) 4.12 K/uL (1.40-6.50); Neutrophils % (auto) 73.7 %; Platelet Count 185 K/uL (130-400); RDW Coefficient of Variation 13.2 % (11.5-14.5); RDW Standard Deviation 45.1 fL (36.4-46.3); White Blood Count 5.59 K/ul (4.8-10.8)
[2023-09-23 09:11] LABS: INR 1.1 (0.9-1.1); Prothrombin Time 11.4 Seconds (9.0-12.0)
[2023-09-23] MEDS: ACETAMINOPHEN 500 MG TAB PO PRN (09:19)
[2023-09-23] MEDS: ANASTROZOLE 1 MG TAB PO SCH (09:19)
[2023-09-23 09:22] LABS: Albumin Level 3.5 gm/dl (3.4-5.0); Bilirubin,Total 0.5 mg/dl (0.2-1.0); Calcium 8.4 mg/dl (8.6-10.3); Magnesium 2.1 mg/dl (1.7-2.4); Potassium 4.2 mmol/L (3.5-5.1)
[2023-09-23 09:28] LABS: Albumin Globulin Ratio 1.4 (0.9-2); BUN Creatinine Ratio 16.7 (10-20); Est GFR (African American) 99.7 ml/min; Globulin 2.5 gm/dl (2.5-4.0); Phosphorus 3.9 mg/dl (2.5-4.9)
[2023-09-23 10:46] LABS: Estimated Average Glucose 114 mg/dl; Hemoglobin A1C 5.6 % (4.5-5.6)
[2023-09-23] MEDS: FUROSEMIDE 20 MG TAB PO SCH (11:19)
[2023-09-23] MEDS: METOPROLOL SUCC 50MG EXT REL TAB PO SCH (11:19)
[2023-09-23] MEDS: SERTRALINE HCL 50 MG TABLET PO SCH (11:19)
--- NOTE | 2023-09-23 14:52 | Hospitalist Progress Note ---
Date of Service September 23, 2023 Assessment & Plan (1) Accidental overdose: Plan: Admit to med/telemetry on pulse oximetry Vitals have remained stable, patient is in no acute distress, and nontoxic- appearing Presented to the ED alongside her daughter who was concerned the patient may have taken 3 days worth of her medications this morning At this time we cannot officially confirm that the patient took all of these medications or if she possibly misplaced them Chronic medications include 5 mg Eliquis, 81 mg aspirin, 20 mg furosemide, 50 mg metoprolol succinate, 20 mEq p.o. KCl, 40 mg Crestor, and 50 mg of sertraline, The ED did contact and speak with the Poison Control Center, at this time their recommendations were to continue to monitor on telemetry overnight. Salicylic acid, acetaminophen level negative. Fluids have been discontinued. Since her vitals and labs have remained stable, I have resumed most of her home medications. Still holding Eliquis. Daughter confirmed that she has not taken sertraline. Bilateral MT stockings for DVT prophylaxis Heart healthy/DM type II diet with 1800 mL fluid restriction (2) Confusion: Plan: Patient's daughter reports progressive cognitive decline over the past 6 months with increased decline over the past 2 weeks Symptoms include increased forgetfulness, increased anxiety, recurrent phone calls to her daughter, losing keys Patient has a nonfocal neurologic exam, CT of the head/brain without contrast was negative for acute findings MRI negative as well This is most likely progression of her dementia Patient has a significant family history of early onset dementia as both of her sisters passed due to complications of early onset dementia Patient will be high risk for hospital-acquired delirium, fall precautions with bed alarm have been ordered along with aspiration precautions PT/OT/case management consults have been placed as patient will likely require placement at the time of discharge Will order Seroquel nightly to help with healthy sleep-wake cycle since the patient has been restless last night. (3) Infection of skin of both ear lobes: Plan: Patient has mild skin irritation/superficial infection of the bilateral earlobes on exam No signs of cellulitis or drainage Patient's daughter explains that her mother has been leaving her clip-on earrings on overnight, her daughter removed the clip-on earrings this morning prior to ED arrival Continue 3 times daily topical bacitracin, continue to monitor for improvement with treatment (4) Type 2 diabetes mellitus: Plan: The patient is not on any medications for diabetes at home She requests to stop checking fingersticks (5) History of pulmonary embolism: Plan: Patient has a history of recurrent DVT and PEs, which is the reason she is on twice daily Eliquis Will hold Eliquis today as we are unsure if she took extra doses along with other home medications prior to daughter's arrival No signs of bleeding INR 1.1 Continue to monitor for signs of bleeding and trend INR Can consider restarting Eliquis tomorrow if patient remains stable (6) HTN (hypertension): Plan: Currently stable Resume metoprolol Hold furosemide for now Patient does not appear to be overloaded. Continue to monitor on telemetry for now Plan Patient will need placement. Awaiting PT/OT and case management input Admission and Anticipated Discharge Date Admission Date: September 22, 2023 Subjective Patient does not have any complaints today. Daughter is at the bedside. Per nurse, the patient was very restless overnight and was jumping out of bed. During my encounter, the patient is quite calm and composed. The daughter stated that she is feeling unsafe about her returning home to live by herself. She prefers for her to go to a rehab center. Review of Systems Review of Systems: All systems reviewed & are unremarkable except as noted in Subjective Physical Exam Physical Exam: General: Awake, conversant Heart: S1, S2/regular rate and rhythm, no murmur rubs or gallops Lungs: Clear to auscultation bilaterally. Normal effort Abdomen: Soft/nontender/nondistended. No hepatosplenomegaly Extremities: No clubbing/cyanosis. No edema Behavior: Appropriate, cooperative Results & Data Results & Data Vital Signs (Past 12 Hours) Vital Signs Temp Pulse Pulse Pulse Resp BP Pulse Ox 09/23/23 11:24 36.8 C 72 20 122/78 97 09/23/23 07:32 36.6 C 82 18 147/82 H 96 09/23/23 05:58 81 09/23/23 03:13 36.6 C 82 16 150/83 H 95 O2 Del Method 09/23/23 11:24 Room Air 09/23/23 07:32 Room Air 09/23/23 05:58 09/23/23 03:13 Room Air Laboratory Results Abnormal lab results 09/22/23 09/22/23 09/22/23 Range/Units 15:14 18:26 19:00 MPV 8.7 L (9.4-12.4) fL Lymph # (Auto) 0.77 L (1.20-3.40) K/uL [place] # (Auto) (0.11-0.59) K/uL Sodium 133 L (136-145) mmol/L Creatinine 0.57 L (0.6-1.2) mg/dl Glucose 128 H (70-99(Fasting)) mg/dl POC Glucose 66 L* (70-99) mg/dl Calcium 8.4 L (8.6-10.3) mg/dl Total Protein 5.9 L (6.0-8.3) gm/dl Globulin 2.4 L (2.5-4.0) gm/dl Salicylates < 3.0 L (3.0-30) mg/dl Acetaminophen < 3 L (10-30) ug/ml 09/23/23 09/23/23 Range/Units 08:17 08:26 MPV 8.9 L (9.4-12.4) fL Lymph # (Auto) 0.72 L (1.20-3.40) K/uL [place] # (Auto) 0.60 H (0.11-0.59) K/uL Sodium 133 L (136-145) mmol/L Creatinine 0.54 L (0.6-1.2) mg/dl Glucose (70-99(Fasting)) mg/dl POC Glucose (70-99) mg/dl Calcium 8.4 L (8.6-10.3) mg/dl Total Protein (6.0-8.3) gm/dl Globulin (2.5-4.0) gm/dl Salicylates (3.0-30) mg/dl Acetaminophen (10-30) ug/ml Diagnostic Findings Brain MRI 09/22/23 16:02 Exam(s): MRI HEAD Without Contrast EXAM: MR Head Without Intravenous Contrast CLINICAL HISTORY: Reason for exam: Progressive confusion. TECHNIQUE: Magnetic resonance images of the head/brain without intravenous contrast in multiple planes. COMPARISON: Comparison made to prior head CT from April 04, 2017. FINDINGS: Brain: Remote ischemic injury of the left cerebellum. Mild nonspecific white matter changes. The flow voids at the base of the brain are intact. No mass. No hemorrhage. No acute infarct. Ventricles: Unremarkable. No ventriculomegaly. Bones/joints: Hyperostosis frontalis interna. No acute fracture. Sinuses: Unremarkable as visualized. No acute sinusitis. Mastoid air cells: Unremarkable as visualized. No mastoid effusion. Orbits: Bilateral lens replacements. IMPRESSION: No evidence of acute intracranial pathology. Electronically signed by: Trisha Tian MD 09/23/23 00:42 AM PG Care Time/CCT Total # of Minutes Spent Total Time Spent with Patient: Total time spent is greater than 50% in coordination of care (as documented) at patient's floor/unit and/or counseling patient: Coding Level of Care Code 51083 SUB INP/OBS CARE 2/35MIN Diagnoses Accidental overdose T50.901A Confusion R41.0 Infection of skin of both ear lobes H60.393 Type 2 diabetes mellitus E11.9 History of pulmonary embolism Z86.711 Essential hypertension I10 Hypertension type: essential hypertension (6) HTN (hypertension) Hypertension type: essential hypertension Qualified Code(s): I10 - Essential (primary) hypertension
[2023-09-23] MEDS: QUEtiapine FUMARATE 25 MG TABLET PO SCH (20:48)
[2023-09-24 06:31] LABS: Basophils # (auto) 0.04 K/uL (0.00-0.20); Basophils % (auto) 0.7 %; Eosinophils # (auto) 0.08 K/uL (0.00-0.50); Eosinophils % (auto) 1.5 %; Hematocrit (blood only) 39.2 % (37.0-47.0); Hemoglobin 13.2 g/dl (12.0-16.0); Immature Granulocytes # (auto) 0.03 K/uL (0.01-0.20); Immature Granulocytes % (auto) 0.5 %; Lymphocytes % (auto) 12.8 %; Mean Corpuscular Hemoglobin 29.7 pg (25.0-34.0); Mean Corpuscular Hgb Conc 33.7 g/dL (32.0-36.0); Mean Corpuscular Volume 88.1 fL (80.0-100.0); Mean Platelet Volume 8.7 fL (9.4-12.4); Monocytes # (auto) 0.57 K/uL (0.11-0.59); Monocytes % (auto) 10.4 %; Neutrophils # (auto) 4.04 K/uL (1.40-6.50); Neutrophils % (auto) 74.1 %; Platelet Count 178 K/uL (130-400); RDW Coefficient of Variation 12.8 % (11.5-14.5); RDW Standard Deviation 41.5 fL (36.4-46.3); Red Blood Count 4.45 M/uL (4.20-5.40); White Blood Count 5.46 K/ul (4.8-10.8)
[2023-09-24 09:00] LABS: BUN Creatinine Ratio 20.3 (10-20); Calcium 8.5 mg/dl (8.6-10.3); Creatinine Clr Calc Pharmacy 58.6 ml/min; Est GFR (African American) 96.9 ml/min; Est GFR (Non-African American) 83.6 ml/min
[2023-09-24] MEDS: APIXABAN 5 MG TABLET PO SCH (09:45)
[2023-09-24] MEDS: POTASSIUM CHLORIDE CRTAB 20 MEQ TABCR PO SCH (09:46)
[2023-09-24] MEDS: FAMOTIDINE 20 MG TAB PO SCH (09:46)
--- NOTE | 2023-09-24 11:40 | Hospitalist Progress Note ---
Date of Service September 24, 2023 Assessment & Plan (1) Accidental overdose: Plan: Vitals have remained stable, patient is in no acute distress, and nontoxic- appearing Presented to the ED alongside her daughter who was concerned the patient may have taken 3 days worth of her medications this morning At this time we cannot officially confirm that the patient took all of these medications or if she possibly misplaced them Chronic medications include 5 mg Eliquis, 81 mg aspirin, 20 mg furosemide, 50 mg metoprolol succinate, 20 mEq p.o. KCl, 40 mg Crestor, and 50 mg of sertraline, The ED did contact and speak with the Poison Control Center, at this time the ir recommendations were to continue to monitor on telemetry overnight. Salicylic acid, acetaminophen level negative. Fluids have been discontinued. Since her vitals and labs have remained stable, I have resumed most of her home medications. Resumed Eliquis today. Daughter confirmed that she has not taken sertraline. Heart healthy/DM type II diet with 1800 mL fluid restriction (2) Confusion: Plan: Patient's daughter reports progressive cognitive decline over the past 6 months with increased decline over the past 2 weeks Symptoms include increased forgetfulness, increased anxiety, recurrent phone calls to her daughter, losing keys Patient has a nonfocal neurologic exam, CT of the head/brain without contrast was negative for acute findings MRI negative as well This is most likely progression of her dementia Patient has a significant family history of early onset dementia as both of her sisters passed due to complications of early onset dementia Patient will be high risk for hospital-acquired delirium, fall precautions with bed alarm have been ordered along with aspiration precautions PT/OT/case management consults have been placed as patient will likely require placement at the time of discharge Will continue Seroquel nightly to help with healthy sleep-wake cycle since the patient has been restless during the night. (3) Infection of skin of both ear lobes: Plan: Patient has mild skin irritation/superficial infection of the bilateral earlobes on exam No signs of cellulitis or drainage Patient's daughter explains that her mother has been leaving her clip-on earrings on overnight, her daughter removed the clip-on earrings this morning prior to ED arrival Continue 3 times daily topical bacitracin, continue to monitor for improvement with treatment (4) Type 2 diabetes mellitus: Plan: The patient is not on any medications for diabetes at home She requests to stop checking fingersticks (5) History of pulmonary embolism: Plan: Patient has a history of recurrent DVT and PEs, which is the reason she is on twice daily Eliquis Will hold Eliquis today as we are unsure if she took extra doses along with other home medications prior to daughter's arrival No signs of bleeding INR 1.1 Resume Eliquis today. (6) HTN (hypertension): Plan: Currently stable Resume metoprolol Hold furosemide for now Patient does not appear to be overloaded. Continue to monitor on telemetry for now Plan Patient will need placement. 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 The daughter is requesting orthopedics consults to have an intra-articular steroid shot in the right knee. Orthopedics consulted per request Admission and Anticipated Discharge Date Admission Date: September 22, 2023 Subjective Patient feels well. Denies chest pain or shortness of breath. Daughter at the bedside. Daughter is requesting a right knee steroid shot. Per nurse, the patient was restless through the night but slept for some part of the night. The nurse could not tell me if the Seroquel last night was effective. The patient is still drowsy this morning. Review of Systems Review of Systems: All systems reviewed & are unremarkable except as noted in Subjective Physical Exam Physical Exam: General: Sleepy, arousable. Heart: S1, S2/regular rate and rhythm, no murmur rubs or gallops Lungs: Clear to auscultation bilaterally. Normal effort Abdomen: Soft/nontender/nondistended. No hepatosplenomegaly Extremities: No clubbing/cyanosis. No edema Behavior: Appropriate, cooperative Results & Data Results & Data Vital Signs (Past 12 Hours) Vital Signs Temp Pulse Pulse Resp BP Pulse Ox O2 Del Method 09/24/23 11:34 36.6 C 84 20 106/66 93 Room Air 09/24/23 09:44 36.5 C 66 18 126/79 96 Room Air 09/24/23 05:36 81 09/24/23 04:22 36.4 C L 88 18 149/81 H 94 Room Air Laboratory Results Abnormal lab results 09/24/23 09/24/23 Range/Units 05:51 05:56 MPV 8.7 L (9.4-12.4) fL Lymph # (Auto) 0.70 L (1.20-3.40) K/uL Sodium 133 L (136-145) mmol/L Creatinine 0.59 L (0.6-1.2) mg/dl BUN/Creatinine Ratio 20.3 H (10-20) Calcium 8.5 L (8.6-10.3) mg/dl PG Care Time/CCT Total # of Minutes Spent Total Time Spent with Patient: Total time spent is greater than 50% in coordination of care (as documented) at patient's floor/unit and/or counseling patient: Coding Level of Care Code 61733 SUB INP/OBS CARE 235MIN Diagnoses Accidental overdose T50.901A Confusion R41.0 Infection of skin of both ear lobes H60.393 Type 2 diabetes mellitus E11.9 History of pulmonary embolism Z86.711 Essential hypertension I10 Hypertension type: essential hypertension (6) HTN (hypertension) Hypertension type: essential hypertension Qualified Code(s): I10 - Essential (primary) hypertension
--- NOTE | 2023-09-24 17:59 | Communication Note ---
Date of Service: September 24, 2023 I reviewed the patient's chart. Patient had injection to bilateral knees approximately 1 month ago. Injections are typically given at 3-month intervals, therefore I would not recommend injection at this point in time. Orthopedics will sign off.
[2023-09-24] MEDS: ROSUVASTATIN CALCIUM 20 MG TAB PO SCH (20:07)
[2023-09-25 06:45] LABS: Calcium 8.7 mg/dl (8.6-10.3)
[2023-09-25 06:50] LABS: BUN Creatinine Ratio 18.8 (10-20); Creatinine Clr Calc Pharmacy 54.1 ml/min; Est GFR (African American) 94.3 ml/min; Est GFR (Non-African American) 81.4 ml/min
[2023-09-25 07:28] LABS: Basophils # (auto) 0.03 K/uL (0.00-0.20); Basophils % (auto) 0.6 %; Eosinophils # (auto) 0.09 K/uL (0.00-0.50); Eosinophils % (auto) 1.9 %; Hematocrit (blood only) 42.7 % (37.0-47.0); Hemoglobin 13.9 g/dl (12.0-16.0); Immature Granulocytes # (auto) 0.04 K/uL (0.01-0.20); Immature Granulocytes % (auto) 0.9 %; Lymphocytes # (auto) 0.96 K/uL (1.20-3.40); Lymphocytes % (auto) 20.5 %; Mean Corpuscular Hemoglobin 29.3 pg (25.0-34.0); Mean Corpuscular Hgb Conc 32.6 g/dL (32.0-36.0); Mean Corpuscular Volume 89.9 fL (80.0-100.0); Mean Platelet Volume 9.2 fL (9.4-12.4); Monocytes # (auto) 0.49 K/uL (0.11-0.59); Monocytes % (auto) 10.4 %; Neutrophils # (auto) 3.08 K/uL (1.40-6.50); Neutrophils % (auto) 65.7 %; Platelet Count 185 K/uL (130-400); RDW Coefficient of Variation 13.2 % (11.5-14.5); RDW Standard Deviation 43.7 fL (36.4-46.3); Red Blood Count 4.75 M/uL (4.20-5.40); White Blood Count 4.69 K/ul (4.8-10.8)
--- NOTE | 2023-09-25 09:23 | Hospitalist Progress Note ---
Date of Service September 25, 2023 Assessment & Plan (1) Accidental overdose: Plan: Vitals have remained stable, patient is in no acute distress, and nontoxic- appearing Presented to the ED alongside her daughter who was concerned the patient may have taken 3 days worth of her medications this morning At this time we cannot officially confirm that the patient took all of these medications or if she possibly misplaced them Chronic medications include 5 mg Eliquis, 81 mg aspirin, 20 mg furosemide, 50 mg metoprolol succinate, 20 mEq p.o. KCl, 40 mg Crestor, and 50 mg of sertraline, The ED did contact and speak with the Poison Control Center, at that time the ir recommendations were to continue to monitor on telemetry overnight. Salicylic acid, acetaminophen level negative. Fluids have been discontinued. Since her vitals and labs have remained stable, I have resumed most of her home medications. Daughter confirmed that she has not taken sertraline. Heart healthy/DM type II diet with 1800 mL fluid restriction (2) Confusion: Plan: Patient's daughter reports progressive cognitive decline over the past 6 months with increased decline over the past 2 weeks Symptoms include increased forgetfulness, increased anxiety, recurrent phone calls to her daughter, losing keys Patient has a nonfocal neurologic exam, CT of the head/brain without contrast was negative for acute findings MRI negative as well This is most likely progression of her dementia Patient has a significant family history of early onset dementia as both of her sisters passed due to complications of early onset dementia Patient will be high risk for hospital-acquired delirium, fall precautions with bed alarm have been ordered along with aspiration precautions PT/OT/case management consults have been placed as patient will likely require placement at the time of discharge Will continue Seroquel nightly to help with healthy sleep-wake cycle since the patient has been restless during the night. (3) Infection of skin of both ear lobes: Plan: Patient has mild skin irritation/superficial infection of the bilateral earlo bes on exam No signs of cellulitis or drainage Patient's daughter explains that her mother has been leaving her clip-on earrings on overnight, her daughter removed the clip-on earrings this morning prior to ED arrival Continue 3 times daily topical bacitracin, continue to monitor for improvement with treatment (4) Type 2 diabetes mellitus: Plan: The patient is not on any medications for diabetes at home She requests to stop checking fingersticks (5) History of pulmonary embolism: Plan: Patient has a history of recurrent DVT and PEs, which is the reason she is on twice daily Eliquis Will hold Eliquis today as we are unsure if she took extra doses along with other home medications prior to daughter's arrival No signs of bleeding INR 1.1 Resume Eliquis today. (6) HTN (hypertension): Plan: Currently stable Resume metoprolol Hold furosemide for now Patient does not appear to be overloaded. Continue to monitor on telemetry for now (7) Osteoarthritis of knees, bilateral: Plan: Patient is complaining of right knee pain Daughter had requested orthopedics consult for intra-articular steroid Orthopedics did not recommended intra-articular steroid as she had received it a month ago. And it is usually done every 3 months Daughter now requests the Medrol pack that was prescribed by orthopedics for at home. Ordered Medrol pack Plan Patient will need placement. Awaiting PT/OT and case management input Admission and Anticipated Discharge Date Admission Date: September 22, 2023 Subjective Patient feels well. Slept well through the night. Noted orthopedics communication note. The patient had received bilateral knee intra-articular steroid about a month ago. At this time, they would not want to give her another shot. Daughter is requesting Medrol pack that was prescribed by orthopedics for at home, to be given here. Review of Systems Review of Systems: All systems reviewed & are unremarkable except as noted in Subjective Physical Exam Physical Exam: General: Awake, conversant. Having breakfast during my encounter Heart: S1, S2/regular rate and rhythm, no murmur rubs or gallops Lungs: Clear to auscultation bilaterally. Normal effort Abdomen: Soft/nontender/nondistended. No hepatosplenomegaly Extremities: No clubbing/cyanosis. No edema Behavior: Appropriate, cooperative Results & Data Results & Data Vital Signs (Past 12 Hours) Vital Signs Temp Pulse Resp BP Pulse Ox O2 Del Method 09/25/23 07:38 36.8 C 73 16 160/76 H 97 Room Air 09/24/23 23:04 36.9 C 80 20 131/80 97 Room Air Laboratory Results Abnormal lab results 09/25/23 Range/Units 06:13 WBC 4.69 L (4.8-10.8) K/ul MPV 9.2 L (9.4-12.4) fL Lymph # (Auto) 0.96 L (1.20-3.40) K/uL PG Care Time/CCT Total # of Minutes Spent Total Time Spent with Patient: Total time spent is greater than 50% in coordination of care (as documented) at patient's floor/unit and/or counseling patient: Coding Level of Care Code 26573 SUB INP/OBS CARE 2/35MIN Diagnoses Accidental overdose T50.901A Confusion R41.0 Infection of skin of both ear lobes H60.393 Type 2 diabetes mellitus E11.9 History of pulmonary embolism Z86.711 Essential hypertension I10 Hypertension type: essential hypertension Osteoarthritis of knees, bilateral M17.0 (6) HTN (hypertension) Hypertension type: essential hypertension Qualified Code(s): I10 - Essential (primary) hypertension
[2023-09-25] MEDS ORDERED: NON-FORMULARY MEDICATION (Methylprednisolone 4 mg tablets,dose pack) PO SCH (09:30)
[2023-09-25] MEDS: methylPREDNISolone 4 MG TAB PO SCH ×2 (09:53→12:39)
[2023-09-26] MEDS: methylPREDNISolone 4 MG TAB PO SCH ×2 (06:27→21:39)
--- NOTE | 2023-09-26 16:46 | Hospitalist Progress Note ---
Date of Service September 26, 2023 Assessment & Plan (1) Accidental overdose: Plan: Vitals have remained stable, patient is in no acute distress, and nontoxic- appearing Presented to the ED alongside her daughter who was concerned the patient may have taken 3 days worth of her medications this morning At this time we cannot officially confirm that the patient took all of these medications or if she possibly misplaced them Chronic medications include 5 mg Eliquis, 81 mg aspirin, 20 mg furosemide, 50 mg metoprolol succinate, 20 mEq p.o. KCl, 40 mg Crestor, and 50 mg of sertraline, The ED did contact and speak with the Poison Control Center, at that time thei r recommendations were to continue to monitor on telemetry overnight. Salicylic acid, acetaminophen level negative. Fluids have been discontinued. Since her vitals and labs have remained stable, I have resumed most of her home medications. Daughter confirmed that she has not taken sertraline. Heart healthy/DM type II diet with 1800 mL fluid restriction (2) Confusion: Plan: Patient's daughter reports progressive cognitive decline over the past 6 months with increased decline over the past 2 weeks Symptoms include increased forgetfulness, increased anxiety, recurrent phone calls to her daughter, losing keys Patient has a nonfocal neurologic exam, CT of the head/brain without contrast was negative for acute findings MRI negative as well This is most likely progression of her dementia Patient has a significant family history of early onset dementia as both of her sisters passed due to complications of early onset dementia Patient will be high risk for hospital-acquired delirium, fall precautions with bed alarm have been ordered along with aspiration precautions PT/OT/case management consults have been placed as patient will likely require placement at the time of discharge Will continue Seroquel nightly to help with healthy sleep-wake cycle since the patient has been restless during the night. (3) Infection of skin of both ear lobes: Plan: Patient has mild skin irritation/superficial infection of the bilateral earlob es on exam No signs of cellulitis or drainage. Resolved Patient's daughter explains that her mother has been leaving her clip-on earrings on overnight, her daughter removed the clip-on earrings this morning prior to ED arrival (4) Type 2 diabetes mellitus: Plan: The patient is not on any medications for diabetes at home She requests to stop checking fingersticks (5) History of pulmonary embolism: Plan: Patient has a history of recurrent DVT and PEs, which is the reason she is on twice daily Eliquis Will hold Eliquis today as we are unsure if she took extra doses along with other home medications prior to daughter's arrival No signs of bleeding INR 1.1 Resumed Eliquis (6) HTN (hypertension): Plan: Currently stable Resume metoprolol Hold furosemide for now Patient does not appear to be overloaded. Continue to monitor on telemetry for now (7) Osteoarthritis of knees, bilateral: Plan: Patient is complaining of right knee pain Daughter had requested orthopedics consult for intra-articular steroid Orthopedics did not recommended intra-articular steroid as she had received it a month ago. And it is usually done every 3 months Daughter now requests the Medrol pack that was prescribed by orthopedics for at home. Ordered Medrol pack Plan Patient will need placement. Case management on board Admission and Anticipated Discharge Date Admission Date: September 22, 2023 Subjective Patient feels well. Denies chest pain or shortness of breath. Accompanied by her daughter at the bedside Review of Systems Review of Systems: All systems reviewed & are unremarkable except as noted in Subjective Physical Exam Physical Exam: General: Awake, conversant. Heart: S1, S2/regular rate and rhythm, no murmur rubs or gallops Lungs: Clear to auscultation bilaterally. Normal effort Abdomen: Soft/nontender/nondistended. No hepatosplenomegaly Extremities: No clubbing/cyanosis. No edema Behavior: Appropriate, cooperative Results & Data Results & Data Vital Signs (Past 12 Hours) Vital Signs Temp Pulse Resp BP Pulse Ox O2 Del Method 09/26/23 13:51 36.9 C 81 16 131/80 95 Room Air 09/26/23 07:07 36.8 C 86 17 120/74 94 Room Air PG Care Time/CCT Total # of Minutes Spent Total Time Spent with Patient: Total time spent is greater than 50% in coordination of care (as documented) at patient's floor/unit and/or counseling patient: Coding Level of Care Code 81511 SUB INP/OBS CARE 2/35MIN Diagnoses Accidental overdose T50.901A Confusion R41.0 Infection of skin of both ear lobes H60.393 Type 2 diabetes mellitus E11.9 History of pulmonary embolism Z86.711 Essential hypertension I10 Hypertension type: essential hypertension Osteoarthritis of knees, bilateral M17.0 (6) HTN (hypertension) Hypertension type: essential hypertension Qualified Code(s): I10 - Essential (primary) hypertension
[2023-09-27] MEDS: methylPREDNISolone 4 MG TAB PO SCH (06:21)
--- NOTE | 2023-09-27 15:59 | Hospitalist Progress Note ---
Date of Service September 27, 2023 Assessment & Plan (1) Accidental overdose: Plan: Vitals have remained stable, patient is in no acute distress, and nontoxic- appearing Presented to the ED alongside her daughter who was concerned the patient may have taken 3 days worth of her medications this morning At this time we cannot officially confirm that the patient took all of these medications or if she possibly misplaced them Chronic medications include 5 mg Eliquis, 81 mg aspirin, 20 mg furosemide, 50 mg metoprolol succinate, 20 mEq p.o. KCl, 40 mg Crestor, and 50 mg of sertraline, The ED did contact and speak with the [facility], at that time thei r recommendations were to continue to monitor on telemetry overnight. Salicylic acid, acetaminophen level negative. Fluids have been discontinued. Since her vitals and labs have remained stable, I have resumed most of her home medications. Daughter confirmed that she has not taken sertraline. Heart healthy/DM type II diet with 1800 mL fluid restriction (2) Confusion: Plan: Patient's daughter reports progressive cognitive decline over the past 6 months with increased decline over the past 2 weeks Symptoms include increased forgetfulness, increased anxiety, recurrent phone calls to her daughter, losing keys Patient has a nonfocal neurologic exam, CT of the head/brain without contrast was negative for acute findings MRI negative as well This is most likely progression of her dementia Patient has a significant family history of early onset dementia as both of her sisters passed due to complications of early onset dementia Patient will be high risk for hospital-acquired delirium, fall precautions with bed alarm have been ordered along with aspiration precautions PT/OT/case management consults have been placed as patient will likely require placement at the time of discharge Will continue Seroquel nightly to help with healthy sleep-wake cycle since the patient has been restless during the night. (3) Infection of skin of both ear lobes: Plan: Patient has mild skin irritation/superficial infection of the bilateral earlob es on exam No signs of cellulitis or drainage. Resolved Patient's daughter explains that her mother has been leaving her clip-on earrings on overnight, her daughter removed the clip-on earrings this morning prior to ED arrival (4) Type 2 diabetes mellitus: Plan: The patient is not on any medications for diabetes at home She requests to stop checking fingersticks (5) History of pulmonary embolism: Plan: Patient has a history of recurrent DVT and PEs, which is the reason she is on twice daily Eliquis Will hold Eliquis today as we are unsure if she took extra doses along with other home medications prior to daughter's arrival No signs of bleeding INR 1.1 Resumed Eliquis (6) HTN (hypertension): Plan: Currently stable Resume metoprolol Hold furosemide for now Patient does not appear to be overloaded. Continue to monitor on telemetry for now (7) Osteoarthritis of knees, bilateral: Plan: Patient is complaining of right knee pain Daughter had requested orthopedics consult for intra-articular steroid Orthopedics did not recommended intra-articular steroid as she had received it a month ago. And it is usually done every 3 months Daughter now requests the Medrol pack that was prescribed by orthopedics for at home. Ordered Medrol pack Plan Patient will need placement. Case management on board Admission and Anticipated Discharge Date Admission Date: September 22, 2023 Subjective Patient feels well. Denies chest pain or shortness of breath. Accompanied by her daughter at the bedside. Review of Systems Review of Systems: All systems reviewed & are unremarkable except as noted in Subjective Physical Exam Physical Exam: General: Awake, conversant. Heart: S1, S2/regular rate and rhythm, no murmur rubs or gallops Lungs: Clear to auscultation bilaterally. Normal effort Abdomen: Soft/nontender/nondistended. No hepatosplenomegaly Extremities: No clubbing/cyanosis. No edema Behavior: Appropriate, cooperative Results & Data Results & Data Vital Signs (Past 12 Hours) Vital Signs Temp Pulse Resp BP Pulse Ox O2 Del Method 09/27/23 15:52 36.4 C L 72 16 118/75 98 Room Air 09/27/23 07:25 Room Air 09/27/23 07:25 36.4 C L 80 28 H 116/66 100 Room Air 09/27/23 06:54 36.7 C 68 16 130/80 98 Room Air PG Care Time/CCT Total # of Minutes Spent Total Time Spent with Patient: Total time spent is greater than 50% in coordination of care (as documented) at patient's floor/unit and/or counseling patient: Coding Level of Care Code 34516 SUB INP/OBS CARE 2/35MIN Diagnoses Accidental overdose T50.901A Confusion R41.0 Infection of skin of both ear lobes H60.393 Type 2 diabetes mellitus E11.9 History of pulmonary embolism Z86.711 Essential hypertension I10 Hypertension type: essential hypertension Osteoarthritis of knees, bilateral M17.0 (6) HTN (hypertension) Hypertension type: essential hypertension Qualified Code(s): I10 - Essential (primary) hypertension
[2023-09-28] MEDS: methylPREDNISolone 4 MG TAB PO SCH (06:38)
--- NOTE | 2023-09-28 14:37 | Hospitalist Progress Note ---
Date of Service September 28, 2023 Assessment & Plan (1) Accidental overdose: Plan: Vitals have remained stable, patient is in no acute distress, and nontoxic- appearing Presented to the ED alongside her daughter who was concerned the patient may have taken 3 days worth of her medications this morning At this time we cannot officially confirm that the patient took all of these medications or if she possibly misplaced them Chronic medications include 5 mg Eliquis, 81 mg aspirin, 20 mg furosemide, 50 mg metoprolol succinate, 20 mEq p.o. KCl, 40 mg Crestor, and 50 mg of sertraline, The ED did contact and speak with the Poison Control Center, at that time thei r recommendations were to continue to monitor on telemetry overnight. Salicylic acid, acetaminophen level negative. Fluids have been discontinued. Since her vitals and labs have remained stable, I have resumed most of her home medications. Daughter confirmed that she has not taken sertraline. Heart healthy/DM type II diet with 1800 mL fluid restriction (2) Confusion: Plan: Patient's daughter reports progressive cognitive decline over the past 6 months with increased decline over the past 2 weeks Symptoms include increased forgetfulness, increased anxiety, recurrent phone calls to her daughter, losing keys Patient has a nonfocal neurologic exam, CT of the head/brain without contrast was negative for acute findings MRI negative as well This is most likely progression of her dementia Patient has a significant family history of early onset dementia as both of her sisters passed due to complications of early onset dementia Patient will be high risk for hospital-acquired delirium, fall precautions with bed alarm have been ordered along with aspiration precautions PT/OT/case management consults have been placed as patient will likely require placement at the time of discharge Will continue Seroquel nightly to help with healthy sleep-wake cycle since the patient has been restless during the night. (3) Infection of skin of both ear lobes: Plan: Patient has mild skin irritation/superficial infection of the bilateral earlob es on exam No signs of cellulitis or drainage. Resolved Patient's daughter explains that her mother has been leaving her clip-on earrings on overnight, her daughter removed the clip-on earrings this morning prior to ED arrival (4) Type 2 diabetes mellitus: Plan: The patient is not on any medications for diabetes at home She requests to stop checking fingersticks (5) History of pulmonary embolism: Plan: Patient has a history of recurrent DVT and PEs, which is the reason she is on twice daily Eliquis Will hold Eliquis today as we are unsure if she took extra doses along with other home medications prior to daughter's arrival No signs of bleeding INR 1.1 Resumed Eliquis (6) HTN (hypertension): Plan: Currently stable Resume metoprolol Hold furosemide for now Patient does not appear to be overloaded. Continue to monitor on telemetry for now (7) Osteoarthritis of knees, bilateral: Plan: Patient is complaining of right knee pain Daughter had requested orthopedics consult for intra-articular steroid Orthopedics did not recommended intra-articular steroid as she had received it a month ago. And it is usually done every 3 months Daughter now requests the Medrol pack that was prescribed by orthopedics for at home. Ordered Medrol pack Plan Peer to peer completed. Insurance denied subacute rehab. Family appeal initiated. Admission and Anticipated Discharge Date Admission Date: September 22, 2023 Subjective Patient feels well. Denies chest pain or shortness of breath Review of Systems Review of Systems: All systems reviewed & are unremarkable except as noted in Subjective Physical Exam Physical Exam: General: Awake, conversant. Heart: S1, S2/regular rate and rhythm, no murmur rubs or gallops Lungs: Clear to auscultation bilaterally. Normal effort Abdomen: Soft/nontender/nondistended. No hepatosplenomegaly Extremities: No clubbing/cyanosis. No edema Behavior: Appropriate, cooperative Results & Data Results & Data Vital Signs (Past 12 Hours) Vital Signs Temp Pulse Resp BP Pulse Ox O2 Del Method 09/28/23 07:36 36.8 C 99 H 16 150/86 H 96 Room Air 09/28/23 07:30 36.7 C 78 16 119/74 94 Room Air 09/28/23 07:00 Room Air PG Care Time/CCT Total # of Minutes Spent Total Time Spent with Patient: Total time spent is greater than 50% in coordination of care (as documented) at patient's floor/unit and/or counseling patient: Coding Level of Care Code 46814 SUB INP/OBS CARE 2/35MIN Diagnoses Accidental overdose T50.901A Confusion R41.0 Infection of skin of both ear lobes H60.393 Type 2 diabetes mellitus E11.9 History of pulmonary embolism Z86.711 Essential hypertension I10 Hypertension type: essential hypertension Osteoarthritis of knees, bilateral M17.0 (6) HTN (hypertension) Hypertension type: essential hypertension Qualified Code(s): I10 - Essential (primary) hypertension
[2023-09-29] MEDS: methylPREDNISolone 4 MG TAB PO SCH (06:06)
--- NOTE | 2023-09-29 10:17 | Psychiatric Consultation ---
Date of Consultation September 29, 2023 Impression / Recommendations Impression Ms Phill Valdez is a 87 y/o F h/o dementia, b/l knee OA with ambulatory dysfunction, atherosclerotic heart disease, h/o PE and DVT, HTN who presents with confusion after accidental overdose of her medications. Initially slightly hyponatremic and corrected. Psychiatry consulted for evaluation. Suspicion for mixed Alzheimer's and vascular dementia given initial memory complaints and progressive decline, concern for stepwise decline with atherosclerotic risk factors, lack of parkinsonism and visual hallucinations associated with Lewy body dementia. MRI concerning for ischemic and nonspecific white matter changes. Current management with quetiapine 25 mg at bedtime as needed is appropriate for sleep and anxiety. Patient would benefit from a higher level of care with regular observation and assistance with medications and meals. Can consider initiation of cholinesterase inhibitors on an outpatient basis. Would recommend to continue sertraline 50 mg for mood and anxiety. Overall, I spent a total of 60 minutes with this case including review of chart records, nursing report, review of lab work, direct evaluation of the patient at bedside, discussion of the patient with the hospitalist provider, discussion with the psychiatric liaison during clinical rounds, and documentation in the electronic health record. (1) Mixed Alzheimer's and vascular dementia: (2) Osteoarthritis of knees, bilateral: (3) Accidental overdose: Psych History Identifying Data Ms Phill Valdez is a 87 y/o F h/o dementia, b/l knee OA with ambulatory dysfunction, atherosclerotic heart disease, h/o PE and DVT, HTN who presents with confusion after accidental overdose of her medications. Initially slightly hyponatremic and corrected. Psychiatry consulted for evaluation. Chief Complaint Worsenning confusion History of Present Illness When asking the patient what brought her into the hospital she replies "do not know". She is alert and oriented to herself and the year; not to the hospital or month. she reports having difficulty moving due to arthritis in her knees. She denies having auditory visual hallucinations. She reports having a "fair" mood most of the time. She complains of having memory problems and being forgetful. No rigidity observed on exam. Patient was pleasant. Had trouble with spontaneous speech. Collateral from daughter indicates that hallucinations started 4 months ago: Patient does not recognize herself in the mirror. Denies any other concerns for hallucinations. Cognitive decline has been present for 2 years and has gotten worse with time. Stepwise decline noted 1 year ago. No history of overt tremors however patient does shake her legs at night. Patient had a fall last year which resulted in a foot fracture. Patient has word-finding difficulties. Patient has 2 sisters who at 68 and 65 years of age and with concern for early onset dementia which progressed quickly. No pre-existing anxiety or depression prior to cognitive decline. Patient was initially started on sertraline 25 mg in April and increased to 50 mg. Patient has been noncompliant with the medication. Patient lives by herself and has difficulty managing medications. Not sleeping well at times. No known history of strokes. Allergies Allergy/AdvReac Type Severity Reaction Status Date / Time nitroglycerin AdvReac Intermediate BP Verified 09/21/23 11:07 Decreases, HR Increases tramadol AdvReac Intermediate faint Verified 09/21/23 11:07 feeling, mind foggy not able to think Home Medications Medication Instructions Recorded Confirmed Type rosuvastatin 40 mg tablet (Crestor) 40 mg PO HS 12/13/17 09/22/23 History furosemide 20 mg tablet 20 mg PO QAM 12/11/19 09/22/23 History metoclopramide HCl 10 mg tablet 5 mg PO DIRECTED 12/11/19 09/22/23 History (Reglan) acetaminophen 650 mg 1,300 mg PO UD 08/07/20 09/22/23 History tablet,extended release calcium carbonate 600 mg-vitamin 1 cap PO QAM 11/09/21 09/22/23 History D3 25 mcg (1,000 unit) capsule albuterol sulfate 90 mcg/actuation 2 puff inhalation Q4H PRN 05/07/22 09/22/23 Rx aerosol inhaler (ProAir HFA) shortness of breath #8.5 grams aspirin 81 mg tablet,delayed 81 mg PO DAILY 03/14/23 09/22/23 History release famotidine 20 mg tablet 20 mg PO DAILY #90 tabs 04/27/23 09/22/23 Rx sertraline 50 mg tablet 50 mg PO DAILY #90 tabs 05/23/23 09/22/23 Rx fluticasone propionate 230 1 puff inhalation BID #12 grams 06/10/23 09/22/23 Rx mcg-salmeterol 21 mcg/actuation HFA inhaler (Advair HFA) metoprolol succinate 50 mg 50 mg PO BID #180 tabs 07/06/23 09/22/23 Rx tablet,extended release 24 hr (Toprol XL) anastrozole 1 mg tablet (Arimidex) 1 mg PO QAM #90 tabs 08/24/23 09/22/23 Rx potassium chloride 20 mEq 20 meq PO QAM #90 tabs 08/24/23 09/22/23 Rx tablet,extended release(part/cryst) apixaban 5 mg tablet 5 mg PO BID #180 tabs 08/25/23 09/22/23 Rx methylprednisolone 4 mg tablets in 4 mg PO UD #1 packet 09/21/23 09/22/23 Rx a dose pack Patient History Medical History Symptomatic anemia Hyperlipidemia History of pulmonary embolism Type 2 diabetes mellitus Anemia GERD (gastroesophageal reflux disease) HTN (hypertension) Hospital discharge follow-up Productive cough Elevated vitamin B12 level Acute hypoxemic respiratory failure COVID-19 virus infection Metabolic encephalopathy Sepsis Acute dehydration Acute hypoxemic respiratory failure due to COVID-19 Rash Petechiae Encounter for pre-operative examination Osteoarthritis Diverticular disease Diabetes mellitus, type 2 no medications -- diet controlled Myocardial Infarction [address]. [address] Viera Chronic obstructive pulmonary disease Long-term (current) use of anticoagulants, INR goal 2.0-3.0 Open wound of left breast hx Asthma Septic shock hx r/t UTI (2017) CKD (chronic kidney disease), stage III Multiple pulmonary emboli S/P surgical procedure (~5-10 years ago) reason for warfarin daily Anemia Systolic CHF, chronic Breast carcinoma, lobular Right. takes Arimidex daily CHF (congestive heart failure) Surgical History S/P debridement H/O vascular surgery History of removal of Port-a-Cath Hx of lumpectomy History of colonoscopy History of cataract surgery History of coronary artery bypass graft History of cardiac cath S/P lymph node biopsy S/P cholecystectomy Family History Father Lung cancer Brother Prostate cancer Myocardial infarction Other No family history of adverse response to anesthesia Denies family history of Colon cancer Ovarian cancer Breast cancer Social History Smoking Status: Former smoker Tobacco Type: Cigarettes Second Hand Exposure: No; Do You Dip or Chew Tobacco: No; Hx Alcohol Use: No Hx Substance Use: No Preferred Language: Belgian Communication Ability: Effective Visual Impairment: No Limitations Hearing Ability: Normal 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: No Beliefs That Will Affect Care: None marital status: / Current Living Situation: Alone Current Living Situation Comment: home alone; sister and dgtr help with meals current occupational status: retired Feels Safe at Home: Yes Safety Concerns: Feels Safe At This Time Dental Care, Regularly: Yes Physical Activity Frequency: Does not Exercise Seatbelt Use: always Assistive Devices: Glasses Physical Exam Mental Examination: Appearance: Well Groomed Eye Contact: Maintains Eye Contact Motor Behavior: Unremarkable Speech: Soft (limited spontaneous speech) Mood: Euthymic and Calm Affect: Congruent Thought Process: Intact and Slowed Thinking Thought Content: Intact (limited content) Hallucinations: None Insight: Poor Judgement: Poor (accidental overdose) Vital Signs (Past 24 Hours): Last Vital Signs Temp 36.4 C L 09/29/23 06:55 Pulse 70 09/29/23 09:15 Resp 18 09/29/23 09:15 BP 107/71 09/29/23 09:15 Pulse Ox 97 09/29/23 09:15 O2 Del Method Room Air 09/29/23 09:15 Results & Data (PSY) Medications Administered Acetaminophen (Acetaminophen 500 Mg Tab) 500 mg PO Q8H PRN PRN Reason: Mild Pain (Scale 1, 2, 3) Stop: 10/23/23 08:55 Last Admin: 09/28/23 20:12 Dose: 500 mg Documented By: MLSandy Admin: 09/27/23 21:06 Dose: 500 mg Documented By: Admin: 09/27/23 13:00 Dose: 500 mg Documented By: Admin: 09/26/23 21:36 Dose: 500 mg Documented By: Admin: 09/26/23 11:50 Dose: 500 mg Documented By: Admin: 09/25/23 20:39 Dose: 500 mg Documented By: Admin: 09/25/23 12:39 Dose: 500 mg Documented By: Admin: 09/24/23 20:06 Dose: 500 mg Documented By: Admin: 09/23/23 18:48 Dose: 500 mg Documented By: Admin: 09/23/23 09:19 Dose: 500 mg Documented By: FARZANA Anastrozole (Anastrozole 1 Mg Tab) 1 mg PO QAM ELÍAS Stop: 10/23/23 08:59 Last Admin: 09/29/23 09:26 Dose: 1 mg Documented By: CRISTOBAL Co-signed By: AUDI Admin: 09/28/23 07:30 Dose: 1 mg Documented By: RODRI Co-signed By: MANNY Admin: 09/27/23 08:30 Dose: 1 mg Documented By: RODRI Co-signed By: MEMO Admin: 09/26/23 08:31 Dose: 1 mg Documented By: CESAR Co-signed By: LURDES Admin: 09/25/23 08:08 Dose: 1 mg Documented By: ALETHEA Co-signed By: JESSICA Admin: 09/24/23 09:45 Dose: 1 mg Documented By: FARZANA Co-signed By: SYLVIA Admin: 09/23/23 09:19 Dose: 1 mg Documented By: FARZANA Co-signed By: SYLVIA Apixaban (Apixaban 5 Mg Tablet) 5 mg PO BID ELÍAS Stop: 10/24/23 08:59 Last Admin: 09/29/23 09:18 Dose: 5 mg Documented By: Admin: 09/28/23 20:16 Dose: 5 mg Documented By: Admin: 09/28/23 07:30 Dose: 5 mg Documented By: Admin: 09/27/23 21:08 Dose: 5 mg Documented By: Admin: 09/27/23 08:30 Dose: 5 mg Documented By: Admin: 09/26/23 21:39 Dose: 5 mg Documented By: Admin: 09/26/23 08:31 Dose: 5 mg Documented By: Admin: 09/25/23 20:43 Dose: 5 mg Documented By: Admin: 09/25/23 08:08 Dose: 5 mg Documented By: Admin: 09/24/23 20:07 Dose: 5 mg Documented By: Admin: 09/24/23 09:45 Dose: 5 mg Documented By: FARZANA Bacitracin (Bacitracin Oint 14 Gm Tube) 1 appln EXT TID ELÍAS Stop: 10/22/23 20:59 Last Admin: 09/29/23 09:19 Dose: 1 appln Documented By: Admin: 09/28/23 20:17 Dose: 1 appln Documented By: Admin: 09/28/23 12:53 Dose: 1 appln Documented By: Admin: 09/28/23 07:35 Dose: 1 appln Documented By: Admin: 09/27/23 21:08 Dose: 1 appln Documented By: Admin: 09/27/23 13:00 Dose: 1 appln Documented By: Admin: 09/27/23 08:30 Dose: 1 appln Documented By: Admin: 09/26/23 21:37 Dose: 1 appln Documented By: Admin: 09/26/23 14:26 Dose: 1 appln Documented By: Admin: 09/26/23 08:31 Dose: 1 appln Documented By: Admin: 09/25/23 20:44 Dose: 1 appln Documented By: Admin: 09/25/23 12:39 Dose: 1 appln Documented By: Admin: 09/25/23 08:09 Dose: 1 appln Documented By: Admin: 09/24/23 20:07 Dose: 1 appln Documented By: Admin: 09/24/23 14:03 Dose: 1 appln Documented By: Admin: 09/24/23 09:33 Dose: 1 appln Documented By: Admin: 09/23/23 20:48 Dose: 1 appln Documented By: Admin: 09/23/23 13:41 Dose: 1 appln Documented By: Admin: 09/23/23 07:58 Dose: 1 appln Documented By: Admin: 09/22/23 23:47 Dose: 1 appln Documented By: FRANCISCO Famotidine (Famotidine 20 Mg Tab) 20 mg PO DAILY ELÍAS Stop: 10/24/23 08:59 Last Admin: 09/29/23 09:26 Dose: 20 mg Documented By: Admin: 09/28/23 07:37 Dose: 20 mg Documented By: Admin: 09/27/23 08:31 Dose: 20 mg Documented By: Admin: 09/26/23 08:31 Dose: 20 mg Documented By: Admin: 09/25/23 08:08 Dose: 20 mg Documented By: Admin: 09/24/23 09:46 Dose: 20 mg Documented By: FARZANA Furosemide (Furosemide 20 Mg Tab) 20 mg PO QAM ELÍAS Stop: 10/23/23 08:59 Last Admin: 09/29/23 09:18 Dose: 20 mg Documented By: Admin: 09/28/23 07:30 Dose: 20 mg Documented By: Admin: 09/27/23 08:31 Dose: 20 mg Documented By: Admin: 09/26/23 08:31 Dose: 20 mg Documented By: Admin: 09/25/23 08:08 Dose: 20 mg Documented By: Admin: 09/24/23 09:45 Dose: 20 mg Documented By: Admin: 09/23/23 11:19 Dose: 20 mg Documented By: FARZANA Methylprednisolone (Methylprednisolone 4 Mg Tab) 4 mg PO 0700,2100 ELÍAS Stop: 09/29/23 21:01 Last Admin: 09/29/23 06:06 Dose: 4 mg Documented By: ANNABEL Metoprolol Succinate (Metoprolol Succ 50mg Ext Rel Tab) 50 mg PO BID ELÍAS Stop: 10/23/23 08:59 Last Admin: 09/29/23 09:18 Dose: 50 mg Documented By: Admin: 09/28/23 20:13 Dose: 50 mg Documented By: Admin: 09/28/23 07:35 Dose: 50 mg Documented By: Admin: 09/27/23 21:07 Dose: 50 mg Documented By: Admin: 09/27/23 08:31 Dose: 50 mg Documented By: Admin: 09/26/23 21:38 Dose: 50 mg Documented By: Admin: 09/26/23 08:31 Dose: 50 mg Documented By: Admin: 09/25/23 20:43 Dose: 50 mg Documented By: Admin: 09/25/23 08:08 Dose: 50 mg Documented By: Admin: 09/24/23 20:07 Dose: 50 mg Documented By: Admin: 09/24/23 09:45 Dose: 50 mg Documented By: Admin: 09/23/23 20:48 Dose: 50 mg Documented By: Admin: 09/23/23 11:19 Dose: 50 mg Documented By: FARZANA Potassium Chloride (Potassium Chloride Crtab 20 Meq Tabcr) 20 meq PO QAM [facility] Stop: 10/24/23 08:59 Last Admin: 09/29/23 09:25 Dose: 20 meq Documented By: Admin: 09/28/23 07:37 Dose: 20 meq Documented By: Admin: 09/27/23 08:31 Dose: 20 meq Documented By: Admin: 09/26/23 08:31 Dose: 20 meq Documented By: Admin: 09/25/23 08:08 Dose: 20 meq Documented By: Admin: 09/24/23 09:46 Dose: 20 meq Documented By: FARZANA Quetiapine Fumarate (Quetiapine Fumarate 25 Mg Tablet) 25 mg PO [facility] Stop: 10/23/23 20:59 Last Admin: 09/28/23 20:15 Dose: 25 mg Documented By: Admin: 09/27/23 21:08 Dose: 25 mg Documented By: Admin: 09/26/23 21:38 Dose: 25 mg Documented By: Admin: 09/25/23 20:42 Dose: 25 mg Documented By: Admin: 09/24/23 20:07 Dose: 25 mg Documented By: Admin: 09/23/23 20:48 Dose: 25 mg Documented By: MILANA Rosuvastatin Calcium (Rosuvastatin Calcium 20 Mg Tab) 40 mg PO [facility] Stop: 10/24/23 20:59 Last Admin: 09/28/23 20:14 Dose: 40 mg Documented By: MLSandy Admin: 09/27/23 21:07 Dose: 40 mg Documented By: Admin: 09/26/23 21:38 Dose: 40 mg Documented By: Admin: 09/25/23 20:42 Dose: 40 mg Documented By: Admin: 09/24/23 20:07 Dose: 40 mg Documented By: MILANA [place] [address] IN/OBS CONSULT LVL 4,60M Patient Type New History Expanded Problem Focused Exam Expanded Problem Focused Medical Decision Making Moderate Complexity Diagnoses Mixed Alzheimer's and vascular dementia G30.9; F01.50; F02.80 Osteoarthritis of knees, bilateral M17.0 Accidental overdose T50.901A
--- NOTE | 2023-09-29 15:00 | Hospitalist Progress Note ---
Date of Service September 29, 2023 Assessment & Plan (1) Accidental overdose: Plan: Vitals have remained stable, patient is in no acute distress, and nontoxic- appearing Presented to the ED alongside her daughter who was concerned the patient may have taken 3 days worth of her medications this morning At this time we cannot officially confirm that the patient took all of these medications or if she possibly misplaced them Chronic medications include 5 mg Eliquis, 81 mg aspirin, 20 mg furosemide, 50 mg metoprolol succinate, 20 mEq p.o. KCl, 40 mg Crestor, and 50 mg of sertraline, The ED did contact and speak with the Poison Control [facility], at that time thei r recommendations were to continue to monitor on telemetry overnight. Salicylic acid, acetaminophen level negative. Fluids have been discontinued. Since her vitals and labs have remained stable, I have resumed most of her home medications. Daughter confirmed that she has not taken sertraline. Heart healthy/DM type II diet (2) Confusion: Plan: Patient's daughter reports progressive cognitive decline over the past 6 months with increased decline over the past 2 weeks Symptoms include increased forgetfulness, increased anxiety, recurrent phone calls to her daughter, losing keys Patient has a nonfocal neurologic exam, CT of the head/brain without contrast was negative for acute findings MRI negative as well This is most likely progression of her dementia Patient has a significant family history of early onset dementia as both of her sisters passed due to complications of early onset dementia Patient will be high risk for hospital-acquired delirium, fall precautions with bed alarm have been ordered along with aspiration precautions PT/OT/case management consults have been placed as patient will likely require placement at the time of discharge Will continue Seroquel nightly to help with healthy sleep-wake cycle since the patient has been restless during the night. Psychiatry consulted. Resume sertraline per psych recommendation (3) Infection of skin of both ear lobes: Plan: Patient has mild skin irritation/superficial infection of the bilateral earlobes on exam No signs of cellulitis or drainage. Resolved Patient's daughter explains that her mother has been leaving her clip-on earrings on overnight, her daughter removed the clip-on earrings this morning prior to ED arrival (4) Type 2 diabetes mellitus: Plan: The patient is not on any medications for diabetes at home She requests to stop checking fingersticks (5) History of pulmonary embolism: Plan: Patient has a history of recurrent DVT and PEs, which is the reason she is on twice daily Eliquis Will hold Eliquis today as we are unsure if she took extra doses along with other home medications prior to daughter's arrival No signs of bleeding INR 1.1 Resumed Eliquis (6) HTN (hypertension): Plan: Currently stable Resume metoprolol Hold furosemide for now Patient does not appear to be overloaded. Continue to monitor on telemetry for now (7) Osteoarthritis of knees, bilateral: Plan: Patient is complaining of right knee pain Daughter had requested orthopedics consult for intra-articular steroid Orthopedics did not recommended intra-articular steroid as she had received it a month ago. And it is usually done every 3 months Daughter now requests the Medrol pack that was prescribed by orthopedics for at home. Ordered Medrol pack Plan Peer to peer completed 09/27. Insurance denied subacute rehab. Family appeal in progress Admission and Anticipated Discharge Date Admission Date: September 22, 2023 Subjective Patient has no new complaints. Denies chest pain or shortness of breath. Daughter at the bedside. Review of Systems Review of Systems: All systems reviewed & are unremarkable except as noted in Subjective Physical Exam Physical Exam: General: Awake, conversant. Heart: S1, S2/regular rate and rhythm, no murmur rubs or gallops Lungs: Clear to auscultation bilaterally. Normal effort Abdomen: Soft/nontender/nondistended. No hepatosplenomegaly Extremities: No clubbing/cyanosis. No edema Behavior: Appropriate, cooperative Results & Data Results & Data Vital Signs (Past 12 Hours) Vital Signs Temp Pulse Resp BP Pulse Ox O2 Del Method 09/29/23 14:23 36.6 C 61 16 130/79 93 Room Air 09/29/23 09:15 70 18 107/71 97 Room Air 09/29/23 06:55 36.4 C L 68 16 141/83 H 100 Room Air PG Care Time/CCT Total # of Minutes Spent Total Time Spent with Patient: Total time spent is greater than 50% in coordination of care (as documented) at patient's floor/unit and/or counseling patient: Coding Level of Care Code 95394 SUB INP/OBS CARE 2/35MIN Diagnoses Accidental overdose T50.901A Confusion R41.0 Infection of skin of both ear lobes H60.393 Type 2 diabetes mellitus E11.9 History of pulmonary embolism Z86.711 Essential hypertension I10 Hypertension type: essential hypertension Osteoarthritis of knees, bilateral M17.0 (6) HTN (hypertension) Hypertension type: essential hypertension Qualified Code(s): I10 - Essential (primary) hypertension
[2023-09-30] MEDS: methylPREDNISolone 4 MG TAB PO SCH (06:00)
[2023-09-30] MEDS: SERTRALINE HCL 50 MG TABLET PO SCH (09:32)
--- NOTE | 2023-09-30 14:22 | Hospitalist Progress Note ---
Date of Service September 30, 2023 Assessment & Plan (1) Accidental overdose: Plan: Vitals have remained stable, patient is in no acute distress, and nontoxic- appearing Presented to the ED alongside her daughter who was concerned the patient may have taken 3 days worth of her medications this morning At this time we cannot officially confirm that the patient took all of these medications or if she possibly misplaced them Chronic medications include 5 mg Eliquis, 81 mg aspirin, 20 mg furosemide, 50 mg metoprolol succinate, 20 mEq p.o. KCl, 40 mg Crestor, and 50 mg of sertraline, The ED did contact and speak with the Poison Control [facility], at that time thei r recommendations were to continue to monitor on telemetry overnight. Salicylic acid, acetaminophen level negative. Fluids have been discontinued. Since her vitals and labs have remained stable, I have resumed most of her home medications. Daughter confirmed that she has not taken sertraline. Heart healthy/DM type II diet (2) Confusion: Plan: Patient's daughter reports progressive cognitive decline over the past 6 months with increased decline over the past 2 weeks Symptoms include increased forgetfulness, increased anxiety, recurrent phone calls to her daughter, losing keys Patient has a nonfocal neurologic exam, CT of the head/brain without contrast was negative for acute findings MRI negative as well This is most likely progression of her dementia Patient has a significant family history of early onset dementia as both of her sisters passed due to complications of early onset dementia Patient will be high risk for hospital-acquired delirium, fall precautions with bed alarm have been ordered along with aspiration precautions PT/OT/case management consults have been placed as patient will likely require placement at the time of discharge Will continue Seroquel nightly to help with healthy sleep-wake cycle since the patient has been restless during the night. Psychiatry consulted. Resume sertraline per psych recommendation (3) Infection of skin of both ear lobes: Plan: Patient has mild skin irritation/superficial infection of the bilateral earlobes on exam No signs of cellulitis or drainage. Resolved Patient's daughter explains that her mother has been leaving her clip-on earrings on overnight, her daughter removed the clip-on earrings this morning prior to ED arrival (4) Type 2 diabetes mellitus: Plan: The patient is not on any medications for diabetes at home She requests to stop checking fingersticks (5) History of pulmonary embolism: Plan: Patient has a history of recurrent DVT and PEs, which is the reason she is on twice daily Eliquis Will hold Eliquis today as we are unsure if she took extra doses along with other home medications prior to daughter's arrival No signs of bleeding INR 1.1 Resumed Eliquis (6) HTN (hypertension): Plan: Currently stable Resume metoprolol Hold furosemide for now Patient does not appear to be overloaded. Continue to monitor on telemetry for now (7) Osteoarthritis of knees, bilateral: Plan: Patient is complaining of right knee pain Daughter had requested orthopedics consult for intra-articular steroid Orthopedics did not recommended intra-articular steroid as she had received it a month ago. And it is usually done every 3 months Completed course of Medrol pack Plan Peer to peer completed 09/27. Insurance denied subacute rehab. Family appeal in progress Admission and Anticipated Discharge Date Admission Date: September 22, 2023 Subjective Patient has no new complaints. Denies any chest pain or shortness of breath. Accompanied by daughter at the bedside Review of Systems Review of Systems: All systems reviewed & are unremarkable except as noted in Subjective Physical Exam Physical Exam: General: Awake, conversant. Heart: S1, S2/regular rate and rhythm, no murmur rubs or gallops Lungs: Clear to auscultation bilaterally. Normal effort Abdomen: Soft/nontender/nondistended. No hepatosplenomegaly Extremities: No clubbing/cyanosis. No edema Behavior: Appropriate, cooperative Results & Data Results & Data Vital Signs (Past 12 Hours) Vital Signs Temp Pulse Resp BP Pulse Ox O2 Del Method 09/30/23 08:24 70 18 138/71 97 Room Air 09/30/23 07:01 36.4 C L 71 16 145/77 H 99 Room Air PG Care Time/CCT Total # of Minutes Spent Total Time Spent with Patient: Total time spent is greater than 50% in coordination of care (as documented) at patient's floor/unit and/or counseling patient: Coding Level of Care Code 55666 SUB INP/OBS CARE 2/35MIN Diagnoses Accidental overdose T50.901A Confusion R41.0 Infection of skin of both ear lobes H60.393 Type 2 diabetes mellitus E11.9 History of pulmonary embolism Z86.711 Essential hypertension I10 Hypertension type: essential hypertension Osteoarthritis of knees, bilateral M17.0 (6) HTN (hypertension) Hypertension type: essential hypertension Qualified Code(s): I10 - Essential (primary) hypertension
--- NOTE | 2023-10-01 14:08 | Hospitalist Progress Note ---
Date of Service October 01, 2023 Assessment & Plan (1) Accidental overdose: Plan: Vitals have remained stable, patient is in no acute distress, and nontoxic- appearing Presented to the ED alongside her daughter who was concerned the patient may have taken 3 days worth of her medications this morning At this time we cannot officially confirm that the patient took all of these medications or if she possibly misplaced them Chronic medications include 5 mg Eliquis, 81 mg aspirin, 20 mg furosemide, 50 mg metoprolol succinate, 20 mEq p.o. KCl, 40 mg Crestor, and 50 mg of sertraline, The ED did contact and speak with the Poison Control Center, at that time thei r recommendations were to continue to monitor on telemetry overnight. Salicylic acid, acetaminophen level negative. Fluids have been discontinued. Since her vitals and labs have remained stable, I have resumed most of her home medications. Daughter confirmed that she has not taken sertraline. Heart healthy/DM type II diet (2) Confusion: Plan: Patient's daughter reports progressive cognitive decline over the past 6 months with increased decline over the past 2 weeks Symptoms include increased forgetfulness, increased anxiety, recurrent phone calls to her daughter, losing keys Patient has a nonfocal neurologic exam, CT of the head/brain without contrast was negative for acute findings MRI negative as well This is most likely progression of her dementia Patient has a significant family history of early onset dementia as both of her sisters passed due to complications of early onset dementia Patient will be high risk for hospital-acquired delirium, fall precautions with bed alarm have been ordered along with aspiration precautions PT/OT/case management consults have been placed as patient will likely require placement at the time of discharge Will continue Seroquel nightly to help with healthy sleep-wake cycle since the patient has been restless during the night. Psychiatry consulted. Resume sertraline per psych recommendation (3) Infection of skin of both ear lobes: Plan: Patient has mild skin irritation/superficial infection of the bilateral earlobes on exam No signs of cellulitis or drainage. Resolved Patient's daughter explains that her mother has been leaving her clip-on earrings on overnight, her daughter removed the clip-on earrings this morning prior to ED arrival (4) Type 2 diabetes mellitus: Plan: The patient is not on any medications for diabetes at home She requests to stop checking fingersticks (5) History of pulmonary embolism: Plan: Patient has a history of recurrent DVT and PEs, which is the reason she is on twice daily Eliquis Will hold Eliquis today as we are unsure if she took extra doses along with other home medications prior to daughter's arrival No signs of bleeding INR 1.1 Resumed Eliquis (6) HTN (hypertension): Plan: Currently stable Resume metoprolol Hold furosemide for now Patient does not appear to be overloaded. Continue to monitor on telemetry for now (7) Osteoarthritis of knees, bilateral: Plan: Patient is complaining of right knee pain Daughter had requested orthopedics consult for intra-articular steroid Orthopedics did not recommended intra-articular steroid as she had received it a month ago. And it is usually done every 3 months Completed course of Medrol pack Plan Peer to peer completed 09/27. Insurance denied subacute rehab. Family appeal in progress Admission and Anticipated Discharge Date Admission Date: September 22, 2023 Subjective Patient feels well. Denies chest pain or shortness of breath Review of Systems Review of Systems: All systems reviewed & are unremarkable except as noted in Subjective Physical Exam Physical Exam: General: Awake, conversant. Heart: S1, S2/regular rate and rhythm, no murmur rubs or gallops Lungs: Clear to auscultation bilaterally. Normal effort Abdomen: Soft/nontender/nondistended. No hepatosplenomegaly Extremities: No clubbing/cyanosis. No edema Behavior: Appropriate, cooperative Results & Data Results & Data Vital Signs (Past 12 Hours) Vital Signs Temp Pulse Resp BP Pulse Ox O2 Del Method 10/01/23 07:50 36.4 C L 76 16 143/72 H 97 Room Air PG Care Time/CCT Total # of Minutes Spent Total Time Spent with Patient: Total time spent is greater than 50% in coordination of care (as documented) at patient's floor/unit and/or counseling patient: Coding Level of Care Code 97965 SUB INP/OBS CARE 2/35MIN Diagnoses Accidental overdose T50.901A Confusion R41.0 Infection of skin of both ear lobes H60.393 Type 2 diabetes mellitus E11.9 History of pulmonary embolism Z86.711 Essential hypertension I10 Hypertension type: essential hypertension Osteoarthritis of knees, bilateral M17.0 (6) HTN (hypertension) Hypertension type: essential hypertension Qualified Code(s): I10 - Essential (primary) hypertension
--- NOTE | 2023-10-02 16:11 | Hospitalist Progress Note ---
Date of Service October 02, 2023 Assessment & Plan (1) Accidental overdose: Plan: Vitals have remained stable, patient is in no acute distress, and nontoxic- appearing Presented to the ED alongside her daughter who was concerned the patient may have taken 3 days worth of her medications this morning At this time we cannot officially confirm that the patient took all of these medications or if she possibly misplaced them Chronic medications include 5 mg Eliquis, 81 mg aspirin, 20 mg furosemide, 50 mg metoprolol succinate, 20 mEq p.o. KCl, 40 mg Crestor, and 50 mg of sertraline, The ED did contact and speak with the Poison Control Center, at that time thei r recommendations were to continue to monitor on telemetry overnight. Salicylic acid, acetaminophen level negative. Fluids have been discontinued. Since her vitals and labs have remained stable, I have resumed most of her home medications. Heart healthy/DM type II diet (2) Confusion: Plan: Patient's daughter reports progressive cognitive decline over the past 6 months with increased decline over the past 2 weeks Symptoms include increased forgetfulness, increased anxiety, recurrent phone calls to her daughter, losing keys Patient has a nonfocal neurologic exam, CT of the head/brain without contrast was negative for acute findings MRI negative as well This is most likely progression of her dementia Patient has a significant family history of early onset dementia as both of her sisters passed due to complications of early onset dementia Patient will be high risk for hospital-acquired delirium, fall precautions with bed alarm have been ordered along with aspiration precautions PT/OT/case management consults have been placed as patient will likely require placement at the time of discharge Will continue Seroquel nightly to help with healthy sleep-wake cycle since the patient has been restless during the night. Psychiatry consulted. Resume sertraline per psych recommendation (3) Infection of skin of both ear lobes: Plan: Patient has mild skin irritation/superficial infection of the bilateral earlobes on exam No signs of cellulitis or drainage. Patient's daughter explains that her mother has been leaving her clip-on earrings on overnight, her daughter removed the clip-on earrings this morning prior to ED arrival Resolved (4) Type 2 diabetes mellitus: Plan: The patient is not on any medications for diabetes at home She requests to stop checking fingersticks (5) History of pulmonary embolism: Plan: Patient has a history of recurrent DVT and PEs, which is the reason she is on twice daily Eliquis No signs of bleeding Resumed Eliquis (6) HTN (hypertension): Plan: Currently stable Resume metoprolol Resumed furosemide Patient does not appear to be overloaded. (7) Osteoarthritis of knees, bilateral: Plan: Patient is complaining of right knee pain Daughter had requested orthopedics consult for intra-articular steroid Orthopedics did not recommended intra-articular steroid as she had received it a month ago. And it is usually done every 3 months Completed course of Medrol pack Plan Peer to peer completed 09/27. Insurance denied subacute rehab. Family appeal in progress Admission and Anticipated Discharge Date Admission Date: September 22, 2023 Subjective Patient feels well. Accompanied by her daughter and sister at the bedside. Denies chest pain or shortness of breath Review of Systems Review of Systems: All systems reviewed & are unremarkable except as noted in Subjective Physical Exam Physical Exam: General: Awake, conversant. Heart: S1, S2/regular rate and rhythm, no murmur rubs or gallops Lungs: Clear to auscultation bilaterally. Normal effort Abdomen: Soft/nontender/nondistended. No hepatosplenomegaly Extremities: No clubbing/cyanosis. No edema Behavior: Appropriate, cooperative Results & Data Results & Data Vital Signs (Past 12 Hours) Vital Signs Temp Pulse Resp BP Pulse Ox O2 Del Method 10/02/23 15:35 36.6 C 73 16 104/65 95 Room Air 10/02/23 06:00 36.7 C 65 18 121/78 94 Room Air PG Care Time/CCT Total # of Minutes Spent Total Time Spent with Patient: Total time spent is greater than 50% in coordination of care (as documented) at patient's floor/unit and/or counseling patient: Coding Level of Care Code 27467 SUB INP/OBS CARE 2/35MIN Diagnoses Accidental overdose T50.901A Confusion R41.0 Infection of skin of both ear lobes H60.393 Type 2 diabetes mellitus E11.9 History of pulmonary embolism Z86.711 Essential hypertension I10 Hypertension type: essential hypertension Osteoarthritis of knees, bilateral M17.0 (6) HTN (hypertension) Hypertension type: essential hypertension Qualified Code(s): I10 - Essential (primary) hypertension
--- NOTE | 2023-10-03 13:42 | Hospitalist Progress Note ---
Date of Service October 03, 2023 Assessment & Plan (1) Accidental overdose: Plan: Vitals have remained stable, patient is in no acute distress, and nontoxic- appearing Presented to the ED alongside her daughter who was concerned the patient may have taken 3 days worth of her medications this morning At this time we cannot officially confirm that the patient took all of these medications or if she possibly misplaced them Chronic medications include 5 mg Eliquis, 81 mg aspirin, 20 mg furosemide, 50 mg metoprolol succinate, 20 mEq p.o. KCl, 40 mg Crestor, and 50 mg of sertraline, The ED did contact and speak with the Poison Control Center, at that time thei r recommendations were to continue to monitor on telemetry overnight. Salicylic acid, acetaminophen level negative. Fluids have been discontinued. Since her vitals and labs have remained stable, I have resumed most of her home medications. Heart healthy/DM type II diet (2) Confusion: Plan: Patient's daughter reports progressive cognitive decline over the past 6 months with increased decline over the past 2 weeks Symptoms include increased forgetfulness, increased anxiety, recurrent phone calls to her daughter, losing keys Patient has a nonfocal neurologic exam, CT of the head/brain without contrast was negative for acute findings MRI negative as well This is most likely progression of her dementia Patient has a significant family history of early onset dementia as both of her sisters passed due to complications of early onset dementia Patient will be high risk for hospital-acquired delirium, fall precautions with bed alarm have been ordered along with aspiration precautions PT/OT/case management consults have been placed as patient will likely require placement at the time of discharge Will continue Seroquel nightly to help with healthy sleep-wake cycle since the patient has been restless during the night. Psychiatry consulted. Resumed sertraline per psych recommendation (3) Infection of skin of both ear lobes: Plan: Patient has mild skin irritation/superficial infection of the bilateral earlobes on exam No signs of cellulitis or drainage. Patient's daughter explains that her mother has been leaving her clip-on earrings on overnight, her daughter removed the clip-on earrings this morning prior to ED arrival Resolved (4) Type 2 diabetes mellitus: Plan: The patient is not on any medications for diabetes at home She requests to stop checking fingersticks (5) History of pulmonary embolism: Plan: Patient has a history of recurrent DVT and PEs, which is the reason she is on twice daily Eliquis No signs of bleeding Resumed Eliquis (6) HTN (hypertension): Plan: Currently stable Resume metoprolol Resumed furosemide Patient does not appear to be overloaded. (7) Osteoarthritis of knees, bilateral: Plan: Patient is complaining of right knee pain Daughter had requested orthopedics consult for intra-articular steroid Orthopedics did not recommended intra-articular steroid as she had received it a month ago. And it is usually done every 3 months Completed course of Medrol pack Plan Peer to peer completed 09/27. Insurance denied subacute rehab. Family appeal in progress. Ordered a CBC and BMP for 10/03. Admission and Anticipated Discharge Date Admission Date: September 22, 2023 Subjective Patient feels well. Denies chest pain or shortness of breath. Review of Systems Review of Systems: All systems reviewed & are unremarkable except as noted in Subjective Physical Exam Physical Exam: General: Awake, conversant. Heart: S1, S2/regular rate and rhythm, no murmur rubs or gallops Lungs: Clear to auscultation bilaterally. Normal effort Abdomen: Soft/nontender/nondistended. No hepatosplenomegaly Extremities: No clubbing/cyanosis. No edema Behavior: Appropriate, cooperative Results & Data Results & Data Vital Signs (Past 12 Hours) Vital Signs Temp Pulse Pulse Resp BP Pulse Ox O2 Del Method 10/03/23 12:23 36.4 C L 82 20 115/65 94 Room Air 10/03/23 07:58 36.8 C 70 18 118/79 94 Room Air 10/03/23 07:02 36.5 C 74 16 142/62 H 97 Room Air PG Care Time/CCT Total # of Minutes Spent Total Time Spent with Patient: Total time spent is greater than 50% in coordination of care (as documented) at patient's floor/unit and/or counseling patient: Coding Level of Care Code 18044 SUB INP/OBS CARE 2/35MIN Diagnoses Accidental overdose T50.901A Confusion R41.0 Infection of skin of both ear lobes H60.393 Type 2 diabetes mellitus E11.9 History of pulmonary embolism Z86.711 Essential hypertension I10 Hypertension type: essential hypertension Osteoarthritis of knees, bilateral M17.0 (6) HTN (hypertension) Hypertension type: essential hypertension Qualified Code(s): I10 - Essential (primary) hypertension
[2023-10-04 08:18] LABS: Basophils # (auto) 0.04 K/uL (0.00-0.20); Basophils % (auto) 0.7 %; Eosinophils % (auto) 3.7 %; Hematocrit (blood only) 39.7 % (37.0-47.0); Hemoglobin 12.9 g/dl (12.0-16.0); Immature Granulocytes # (auto) 0.04 K/uL (0.01-0.20); Immature Granulocytes % (auto) 0.7 %; Lymphocytes % (auto) 18.4 %; Mean Corpuscular Hemoglobin 29.1 pg (25.0-34.0); Mean Corpuscular Hgb Conc 32.5 g/dL (32.0-36.0); Mean Corpuscular Volume 89.4 fL (80.0-100.0); Mean Platelet Volume 8.9 fL (9.4-12.4); Monocytes # (auto) 0.55 K/uL (0.11-0.59); Monocytes % (auto) 10.1 %; Neutrophils % (auto) 66.4 %; Platelet Count 168 K/uL (130-400); RDW Coefficient of Variation 13.2 % (11.5-14.5); RDW Standard Deviation 43.5 fL (36.4-46.3); Red Blood Count 4.44 M/uL (4.20-5.40); White Blood Count 5.43 K/ul (4.8-10.8)
[2023-10-04 08:52] LABS: BUN Creatinine Ratio 17.1 (10-20); Calcium 8.3 mg/dl (8.6-10.3); Creatinine Clr Calc Pharmacy 49.4 ml/min; Est GFR (African American) 91.6 ml/min; Potassium 3.5 mmol/L (3.5-5.1)
--- NOTE | 2023-10-04 14:26 | Hospitalist Progress Note ---
Date of Service October 04, 2023 Assessment & Plan (1) Accidental overdose: Plan: Apparently occurred at home and necessitated this admission. No apparent adverse reactions. Supportive care. (2) Confusion: Plan: Due to dementia. Progressively getting worse according to her daughter. Psychiatry consult appreciated. Supportive care (3) Infection of skin of both ear lobes: Plan: mild skin irritation/superficial infection of the bilateral earlobes. Probably from clip-on earrings which have been removed. Now resolved (4) Type 2 diabetes mellitus: Plan: The patient is not on any medications for diabetes at home. Fingerstick glucose measurements have been discontinued at patient's request (5) History of pulmonary embolism: Plan: history of recurrent DVT and PE. Continue Eliquis therapy (6) HTN (hypertension): Plan: Stable. Continue current medical management (7) Osteoarthritis of knees, bilateral: Plan: Orthopedic consultation noted. Intra-articular steroid injection not recommended at this time as she had received it a month ago. Usually done every 3 months. Completed course of Medrol pack Plan Peer to peer completed 09/27. Insurance denied subacute rehab. Family appeal in progress. Admission and Anticipated Discharge Date Admission Date: September 22, 2023 Subjective Alert. No acute distress. No new problems. Case management entry noted Review of Systems 2 Review of Systems: Constitutional-no fever or chills ENT-no blurred vision, no double vision, no epistaxis, no sore throat Respiratory-no cough, no wheezing, no shortness of breath Cardiac-no palpitations, no chest pain, no syncope GI-no nausea, vomiting, diarrhea, melena, hematochezia -no urinary retention, no urinary incontinence, no dysuria, no hematuria Musculoskeletal-no joint pain, no muscle tenderness Skin-no bruising, no rashes, no pruritus Neuro-no isolated weakness, no paresthesia, no weakness Psych-no depression, no anxiety Physical Exam 2 Physical Exam: General-alert and oriented x1, no fever, no chills HEENT-head atraumatic and normocephalic, pupils equal and reactive to light, extraocular muscles intact Neck-no lymphadenopathy or thyromegaly, trachea midline Chest-clear to auscultation. No rales, wheezing or rhonchi Cardiac-regular rate and rhythm, normal S1 and S2 Abdomen-normal bowel sounds, no hepatosplenomegaly Extremities-no cyanosis, clubbing, or edema Neuro-cranial nerves II through XII intact, motor and sensory function within normal limits, strength symmetrical with generalized weakness, no focal deficits Psych-normal affect, normal mood Results & Data Results & Data Vital Signs (Past 12 Hours) Vital Signs Temp Pulse Resp BP Pulse Ox O2 Del Method 10/04/23 07:02 37.1 C 77 16 105/50 L 91 Room Air Laboratory Results 10/04/23 07:50 10/04/23 07:50 PG Care Time/CCT Total # of Minutes Spent Total Time Spent with Patient: Total time spent is greater than 50% in coordination of care (as documented) at patient's floor/unit and/or counseling patient: Coding Level of Care Code 50458 SUB INP/OBS CARE 3/50MIN Diagnoses Accidental overdose T50.901A Confusion R41.0 Infection of skin of both ear lobes H60.393 Type 2 diabetes mellitus E11.9 History of pulmonary embolism Z86.711 Essential hypertension I10 Hypertension type: essential hypertension Osteoarthritis of knees, bilateral M17.0 (6) HTN (hypertension) Hypertension type: essential hypertension Qualified Code(s): I10 - Essential (primary) hypertension
[2023-10-04] MEDS: ACETAMINOPHEN 500 MG TAB PO SCH (21:00)
--- NOTE | 2023-10-05 10:52 | Hospitalist Progress Note ---
Date of Service October 05, 2023 Assessment & Plan (1) Accidental overdose: Plan: Apparently occurred at home and necessitated this admission. No apparent adverse reactions. Supportive care. (2) Confusion: Plan: Due to dementia. Progressively getting worse according to her daughter. Psychiatry consult appreciated. Supportive care (3) Infection of skin of both ear lobes: Plan: mild skin irritation/superficial infection of the bilateral earlobes. Probably from clip-on earrings which have been removed. Now resolved (4) Type 2 diabetes mellitus: Plan: The patient is not on any medications for diabetes at home. Fingerstick glucose measurements have been discontinued at patient's request (5) History of pulmonary embolism: Plan: history of recurrent DVT and PE. Continue Eliquis therapy (6) HTN (hypertension): Plan: Stable. Continue current medical management (7) Osteoarthritis of knees, bilateral: Plan: Orthopedic consultation noted. Intra-articular steroid injection not recommended at this time as she had received it a month ago. Usually done every 3 months. Completed course of Medrol pack Plan Peer to peer completed 09/27. Insurance denied subacute rehab. Family appeal in progress. Eventual placement Admission and Anticipated Discharge Date Admission Date: September 22, 2023 Subjective Alert and oriented x 1. No new problems. Placement is pending Review of Systems 2 Review of Systems: Constitutional-no fever or chills ENT-no blurred vision, no double vision, no epistaxis, no sore throat Respiratory-no cough, no wheezing, no shortness of breath Cardiac-no palpitations, no chest pain, no syncope GI-no nausea, vomiting, diarrhea, melena, hematochezia -no urinary retention, no urinary incontinence, no dysuria, no hematuria Musculoskeletal-no joint pain, no muscle tenderness Skin-no bruising, no rashes, no pruritus Neuro-no isolated weakness, no paresthesia, no weakness Psych-no depression, no anxiety Physical Exam 2 Physical Exam: General-alert and oriented x1, no fever, no chills HEENT-head atraumatic and normocephalic, pupils equal and reactive to light, extraocular muscles intact Neck-no lymphadenopathy or thyromegaly, trachea midline Chest-clear to auscultation. No rales, wheezing or rhonchi Cardiac-regular rate and rhythm, normal S1 and S2 Abdomen-normal bowel sounds, no hepatosplenomegaly Extremities-no cyanosis, clubbing, or edema Neuro-cranial nerves II through XII intact, motor and sensory function within normal limits, strength symmetrical with generalized weakness, no focal deficits Psych-normal affect, normal mood Results & Data Results & Data Vital Signs (Past 12 Hours) Vital Signs Temp Pulse Resp BP Pulse Ox O2 Del Method 10/05/23 09:08 102/68 10/05/23 08:18 69 97/53 L 10/05/23 05:43 36.3 C L 66 17 126/73 96 Room Air Laboratory Results 10/04/23 07:50 10/04/23 07:50 PG Care Time/CCT Total # of Minutes Spent Total Time Spent with Patient: Total time spent is greater than 50% in coordination of care (as documented) at patient's floor/unit and/or counseling patient: Coding Level of Care Code 94094 SUB INP/OBS CARE 2/35MIN Diagnoses Accidental overdose T50.901A Confusion R41.0 Infection of skin of both ear lobes H60.393 Type 2 diabetes mellitus E11.9 History of pulmonary embolism Z86.711 Essential hypertension I10 Hypertension type: essential hypertension Osteoarthritis of knees, bilateral M17.0 (6) HTN (hypertension) Hypertension type: essential hypertension Qualified Code(s): I10 - Essential (primary) hypertension
[2023-10-06 08:14] VITALS: BP 131/82; RESP 19; TEMP 98.2; O2SAT 96
--- NOTE | 2023-10-06 11:34 | Discharge Summary ---
Date of Service October 06, 2023 Admission HPI Per Admitting Provider Gena is an 87-year-old female with a past medical history significant for HFrEF, HTN, HLD, DM2, CAD s/p CABG, recurrent DVT w/ history of PE on chronic Eliquis COPD, asthma, GERD, CKD3, breast cancer, anemia, and dementia who presented to the [facility] ED on 09/22/2023 accompanied by her daughter due to concerns for progressive confusion and anxiety over the past 2 weeks and concerns that she may have taken multiple doses of her home medications today. The patient was seen at her PCP yesterday for the ongoing confusion, anxiety, and bilateral knee arthritis causing significant pain and am bulatory dysfunction. Outpatient workup has been started by her PCP with plans for MRI of the brain. The patient lives at home alone, her daughter lives approximately 12 miles away and checks on her frequently. This a.m. her daughter found the patient confused and asking where her car keys were, she was also noted to be drowsy. The patient's daughter helps the patient organize her medications and noticed this a.m. that the patient may have taken her doses of medication for today (09/22/2023), tomorrow (09/22), and Saturdays (09/23). The patient remained stable while in the ED. Labs including CBC, CMP, mag, high-sensitivity troponin, TSH, and UA were unremarkable. CT of the head/brain without contrast was read as negative for acute findings. Chest x-ray was also read as negative for acute findings. EKG shows sinus rhythm with first-degree AV block without acute changes compared to previous. I did confirm with the ED staff that they called and spoke with poison control. At this time recommendations are to continue to monitor the patient on telemetry, poison control also recommended obtaining salicylate level, acetaminophen level, and INR at this time. Prior to admission the patient was started on normal saline at 125 mL/h. Patient was lying in bed in no acute distress at the time of exam with her daughter/POA at bedside history was obtained primarily from the patient's da cassidyhter due to her current mental status. Her daughter explains that the patient has been having ongoing cognitive decline decline over the past 6 months but significantly worse over the past 2 weeks. The patient has been getting significantly more forgetful especially in terms of medications. Her daughter has been trying as much as she can to help the patient organize her medications, write notes to remind the patient which medications to take when, and speaking to her mother multiple times a day on the phone whenever she is unable to be there in person. The patient has baseline ambulatory dysfunction due to severe arthritis in the bilateral knees and a chronically dislocated right shoulder which has not been surgically repaired due to patient being high risk surgical candidate. The patient's daughter explains that she arrived to the patient's house late this morning after picking up the patient's prescriptions. She found the patient sitting on her front porch appearing fatigued. The patient's daughter was concerned as the patient was not watching the Sharma of right, which she normally watches daily. The patient's daughter checked the patient's medication bottles and noticed that the pills for today, 09/22, and 09/23 were all gone. Her daughter cannot confirm whether or not the patient did take all of these and the patient is an unreliable historian. The patient's daughter explains that she has tried her best but at this time the patient is too unsafe at home, placement will likely be needed on discharge. The patient denied any complaints including pain, nausea, vomiting, chest pain, shortness of breath. I discussed CODE STATUS with the patient's daughter as she is the patient's power of civil litigation attorney. Due to the patient's ongoing cognitive decline and significant decline in quality of life the patient's family now wishes for her to be a DNR/DNI. They will continue to update the patient's living will to reflect this. Of note, patient's daughter explains that the patient's 2 sisters both passed due to complications from early onset dementia. Please refer to Dr. Carbajal's attestation for any changes to the treatment plan Principal Diagnosis Accidental medication overdose Discharge Exam General-alert and oriented x1, no fever, no chills HEENT-head atraumatic and normocephalic, pupils equal and reactive to light, extraocular muscles intact Neck-no lymphadenopathy or thyromegaly, trachea midline Chest-clear to auscultation. No rales, wheezing or rhonchi Cardiac-regular rate and rhythm, normal S1 and S2 Abdomen-normal bowel sounds, no hepatosplenomegaly Extremities-no cyanosis, clubbing, or edema Neuro-cranial nerves II through XII intact, motor and sensory function within normal limits, strength symmetrical with generalized weakness, no focal deficits Psych-normal affect, normal mood Discharge Data Allergies Allergy/AdvReac Type Severity Reaction Status Date / Time nitroglycerin AdvReac Intermediate BP Verified 09/21/23 11:07 Decreases, HR Increases tramadol AdvReac Intermediate faint Verified 09/21/23 11:07 feeling, mind foggy not able to think Consultations 09/22/23 15:06 ED Decision to Admit Stat 09/24/23 11:38 Consult Orthopedic Surgery Routine Ordered Studies 09/22/23 12:55 CT head/brain wo con Stat 09/22/23 16:02 MRI Brain [MR brain wo con] Routine Hospital Course (1) Accidental overdose: Apparently occurred at home and necessitated this admission. No apparent adverse reactions. Supportive care. (2) Confusion: Due to dementia. Progressively getting worse according to her daughter. Psychiatry consult appreciated. Supportive care (3) Infection of skin of both ear lobes: mild skin irritation/superficial infection of the bilateral earlobes. Probably from clip-on earrings which have been removed. Now resolved (4) Type 2 diabetes mellitus: The patient is not on any medications for diabetes at home. Fingerstick glucose measurements have been discontinued at patient's request (5) History of pulmonary embolism: history of recurrent DVT and PE. Continue Eliquis therapy (6) HTN (hypertension): Stable. Continue current medical management (7) Osteoarthritis of knees, bilateral: Orthopedic consultation noted. Intra-articular steroid injection not recommended at this time as she had received it a month ago. Usually done every 3 months. Completed course of Medrol pack Plan Discharge to [facility] dementia unit today, October 05 Total Time Total Time Spent Total Time Spent (In Minutes): 50 minutes Discharge Plan Discharge Items Patient Disposition: Transfer Group Home Fac Reason For Visit: PROGRESSIVE CONFUSION, POSSIBLE ACCIDENTAL OVERDOS Discharge Diagnosis: Accidental medication overdose, dementia Activity: Resume your previous activity Non-emergency contact: Primary Care Provider Call non-emergency contact if: your symptoms worsen Follow-up/Referrals: ProLucian MD [Primary Care Provider] - Diet: Regular and Heart Healthy Addtl Attending Provider Instructions: All medications remain the same Pending Studies at Discharge: No Stand-Alone Forms: My [employer] Skilled Items Patient informed of condition?: Yes DNR: Yes Discharge Level of Care: Skilled Communicable Disease: No Discharge Prognosis: Stable Lines: None Urinary Catheter: No Medications and DC Order Prescriptions: New quetiapine 25 mg Tablet 25 mg PO HS Qty: 30 0RF Continued rosuvastatin [Crestor] 40 mg tablet 40 mg PO HS calcium carbonate-vitamin D3 600 mg-25 mcg (1,000 unit) capsule 1 cap PO QAM metoclopramide HCl [Reglan] 10 mg tablet 5 mg PO DIRECTED Rx Instructions: take before breakfast and dinner furosemide 20 mg tablet 20 mg PO QAM albuterol sulfate [ProAir HFA] 90 mcg/actuation HFA aerosol inhaler 2 puff INH Q4H PRN (Reason: shortness of breath) Qty: 8.5 5RF aspirin 81 mg tablet,delayed release (DR/EC) 81 mg PO DAILY Patient Comments: Pt states she takes this and is reading from her D/C instructions. I asked her what page she was looking at and she was unable to tell me. famotidine 20 mg tablet 20 mg PO DAILY Qty: 90 3RF metoprolol succinate [Toprol XL] 50 mg tablet extended release 24 hr 50 mg PO BID Qty: 180 1RF anastrozole [Arimidex] 1 mg tablet 1 mg PO QAM Qty: 90 2RF potassium chloride 20 mEq tablet,ER particles/crystals 20 meq PO QAM Qty: 90 1RF apixaban 5 mg tablet 5 mg PO BID Qty: 180 1RF methylprednisolone 4 mg tablets,dose pack 4 mg PO UD Qty: 1 0RF Rx Instructions: Use as directed celecoxib [Celebrex] 200 mg capsule 200 mg PO DAILY Qty: 30 0RF acetaminophen 650 mg tablet extended release 1,300 mg PO UD sertraline 50 mg tablet 50 mg PO DAILY Qty: 90 2RF Advair HFA 230-21 mcg/actuation HFA aerosol inhaler 1 puff inhalation BID Qty: 12 5RF Discharge Orders: Discharge Order (Routine); Ordered 10/06/23 Ordered By: Erik Almanza Admission Data Admit Date/Time: 09/22/23 15:19 Attending Provider: Erik Almanza Admit Provider: Yolie Carbajal Primary Care Provider: Lucian Noe Other Providers: Yolie Carbajal; Giuseppe Solo; [place],[facility], [place]; Rhonda Pryor [facility] Coding Level of Care Code 91943 INP/OBS DISCH >30 MIN Diagnoses Accidental overdose T50.901A Confusion R41.0 Infection of skin of both ear lobes H60.393 Type 2 diabetes mellitus E11.9 History of pulmonary embolism Z86.711 Essential hypertension I10 Hypertension type: essential hypertension Osteoarthritis of knees, bilateral M17.0
[2023-10-06 12:26] VITALS: PULSE 82
== END 2023-10-06 13:05 | DRG 918 ==
LOC: ED 11:49 → SUATTDRO 15:19 → EDINP 15:19 → 2N 22:12 → 3W 09-25 16:23